=== PATIENT | male | born 1955 | race Caucasian/White ===

== ENCOUNTER 2016-12-01 20:48 | Inpatient (IN) ==
[2016-12-01] MEDS ORDERED: Ipratropium/Albuterol Neb 3 ML IH ONE (20:57)
[2016-12-01 21:32] LABS: Hematocrit 25.9 % (37.5-50.1); Hemoglobin 8.4 g/dL (12.9-16.9); Mean Corpuscular HGB Conc 32.4 g/dL (31.6-35.5); Mean Corpuscular Hemoglobin 31.7 pg (28.0-33.3); Mean Corpuscular Volume 97.7 fL (83.0-100.0); Mean Platelet Volume 10.1 fL (9.4-12.4); Red Blood Count 2.65 M/mcL (4.19-5.50); Red Cell Distribution Width 17.2 % (11.5-14.5); Segmented Neutrophils % 70.9 %
[2016-12-01 21:33] LABS: Basophils % 0.5 %; Eosinophils # 0.2 K/mcL (0.0-0.6); Immature Granulocytes % 0.4 % (0-4); Lymphocytes # 1.1 K/mcL (0.6-4.6); Lymphocytes % 13.9 %; Monocytes # 0.9 K/mcL (0.0-1.3); Monocytes % 11.3 %; Neutrophils # 5.7 K/mcL (1.6-8.9)
[2016-12-01 21:35] LABS: Platelet Count 90 K/mcL (140-400)
[2016-12-01 21:43] LABS: INR 1.2; Prothrombin Time 13.3 Seconds (9.4-12.1)
[2016-12-01 21:45] LABS: Calcium 9.3 mg/dL (8.6-10.8); Potassium 4.3 mEq/L (3.5-4.5)
--- NOTE | 2016-12-01 22:06 | Emergency Department Note ---
Disposition Clinical Impression: Congestive heart failure, Edema, Acute exacerbation of chronic obstructive airways disease, Elevated troponin Disposition: Admitted As Inpatient Condition: Fair Time of Disposition: 23:44 General Adult HPI - General Chief complaint: ED Shortness of Breath/Dyspnea Stated complaint: SOB Time Seen by Provider: 12/01/16 20:57 Source: patient Nursing Notes Reviewed: Yes Vital Signs Reviewed: Yes - History of Present Illness HPI Narrative: Patient presents to the ED with the chief complaint of shortness of breath. Patient and family report that over the last week or so. The patient has had gradually increasing shortness of breath and exertional dyspnea. Reports that he has had bilateral lower extremity swelling that is also gradually worsening. States the last few days he has been using his breathing treatments every 4-6 hours without relief. He has had a productive cough with yellow sputum, no fever or chills. Complaining of chest tightness but no chest pain. No abdominal pain. Some nausea but no vomiting. No history of DVT, PE or malignancy. Does have a history of previous CABG and is followed by cardiology here with Dr. Velasquez. States he just had some recent blood work and had a low TSH but has not been placed on any medication for that. Reports he just does not feel well at all. He does have a history of asthma but has never had to be admitted for his breathing. Pain Scale: 0 - Related Data Home Medications Medication Instructions Recorded Confirmed Albuterol Sulfate [Albuterol 2 puff IH Q4HR PRN 06/27/16 06/27/16 Inhaler] Allopurinol [Zyloprim 300 MG] 300 mg PO DAILY 06/27/16 06/27/16 Ammonium Lactate [Elsa-Hydrolac] 1 appl TP BID 06/27/16 06/27/16 Beclomethasone Diprop 80mcg [Qvar 1 puff IH BID 06/27/16 06/27/16 80 mcg] Cetirizine HCl [All Day Allergy] 10 mg PO DAILY 06/27/16 06/27/16 Cholecalciferol (D-3) [Vitamin D] 5,000 unit PO DAILY 06/27/16 06/27/16 Clobetasol Propionate [Temovate] 1 appl TP 3XW 06/27/16 06/27/16 Ergocalciferol (VITAMIN D2) 50,000 unit PO 2XW 06/27/16 06/27/16 [Vitamin D2] Fenofibrate Nanocrystallized 145 mg PO DAILY 06/27/16 06/27/16 [Tricor] Ferrous Sulfate [Iron] 325 mg PO BID 06/27/16 06/27/16 Fluticasone Propionate [Flovent 1 puff IH BID 06/27/16 06/27/16 Hfa] Furosemide [Lasix] 40 - 120 mg PO DAILY 06/27/16 06/27/16 Hydrocortisone 1% CREAM [Cortaid] 1 appl TP BID PRN 06/27/16 06/27/16 Insulin Regular U-500 [HumuLIN R 0 unit SQ AD MDD PER INSULIN PUMP 06/27/16 U-500] Isosorbide MONOnitrate (24 HR) 30 mg PO DAILY 06/27/16 06/27/16 [Imdur] Ketoconazole Shampoo [Nizoral 1 appl TP 2XW 06/27/16 06/27/16 Shampoo] Levothyroxine [Synthroid] 75 mcg PO DAILY 06/27/16 06/27/16 Lisinopril [Zestril] 5 mg PO DAILY 06/27/16 06/27/16 Mupirocin [Bactroban Oint] 1 appl TP BID PRN 06/27/16 06/27/16 Nitroglycerin [Nitrostat] 0.4 mg SL AD PRN 06/27/16 06/27/16 Simvastatin [Zocor] 40 mg PO HS 06/27/16 06/27/16 Ubidecarenone [Co Q-10] 400 mg PO DAILY 06/27/16 06/27/16 Verapamil HCl [Verapamil ER] 120 mg PO QAM 06/27/16 06/27/16 amLODIPine [Norvasc] 5 mg PO DAILY 06/27/16 06/27/16 Previous Rx's Medication Instructions Recorded Amoxicillin [Amoxil] 500 mg PO Q8HR #21 capsule 06/27/16 HYDROcodone/Acet 7.5/325 mg [[place] 1 tab PO Q4-6H PRN #40 tablet 06/27/16 7.5-325 mg] Tramadol HCl [Ultram] 50 mg PO Q4-6H PRN #30 tab 06/27/16 Allergies Allergy/AdvReac Type Severity Reaction Status Date / Time acetaminophen [From Percocet] Allergy Hives Verified 02/18/15 11:32 atorvastatin [From Lipitor] Allergy Hives Verified 02/18/15 11:32 azithromycin Allergy Hives Verified 06/27/16 12:46 [From Zithromax Z-Sharad] Cefaclor [From Ceclor] Allergy Hives Verified 02/18/15 11:32 cephalexin [From Keflex] Allergy Hives Verified 02/18/15 11:32 ciprofloxacin [From Cipro] Allergy Hives Verified 02/18/15 11:32 clarithromycin [From Biaxin] Allergy Hives Verified 02/18/15 11:30 clindamycin Allergy Hives Verified 02/18/15 11:30 metoprolol Allergy Hives Verified 02/18/15 11:32 moxifloxacin [From Avelox] Allergy Hives Verified 02/18/15 11:29 Oxycodone [From Percocet] Allergy Hives Verified 02/18/15 11:32 prednisone Allergy Hives Verified 02/18/15 11:32 Streptomycin Allergy Hives Verified 02/18/15 11:32 sulfamethoxazole Allergy Hives Verified 02/18/15 11:30 [From Bactrim] trimethoprim [From Bactrim] Allergy Hives Verified 02/18/15 11:30 All systems ED: reviewed and negative except as stated. Constitutional: Denies: fever Cardiovascular: Reports: chest pain (tightness) Respiratory: Reports: cough, dyspnea Neurological: Denies: headache Past Medical History - Past Medical History Attestation: Yes The following information was validated with the patient. Source: patient Medical history: Reports: asthma, CHF, diabetes, GERD, hypertension, renal disease, thyroid disease Surgical history: Reports: cholecystectomy, coronary bypass (CABG), sinus surgery Psychiatric history: Reports: depression - Social History Smoking Status: Never smoker Smokeless Tobacco Status: No Alcohol use: Reports: none Drug use: Reports: none Physical Exam - General General appearance: alert, in no apparent distress - Head Head exam: atraumatic, normocephalic, normal inspection - Eye Eye exam: Present: normal appearance, PERRL, EOMI - Neck Neck exam: Present: normal inspection, full ROM, trachea midline - Chest Chest inspection: Present: normal inspection, symmetric chest wall rise - Respiratory Respiratory exam: Present: other (Rales bilaterally, decreased breath sounds bilateral bases, mild respiratory distress) - Cardiovascular Cardiovascular exam: Present: regular rate, normal rhythm, normal heart sounds - Abdominal Exam Abdominal exam: Present: soft, Non-Tender, distention (chronic ) - Extremities Exam Extremities exam: Present: full ROM, pedal edema. Absent: normal inspection - Expanded Lower Extremity Exam Hip/Pelvis exam: Present: pelvis stable - Neurological Exam Neurological exam: Present: alert, oriented X3 - Psychiatric Psychiatric exam: Present: normal affect, normal mood - Skin Skin exam: Present: warm, dry, intact, normal color Course Course Narrative: 59-year-old male presenting with shortness of breath. Clinically appears to have CHF. We will workup and admit. Vital Signs Temperature 97.5 F L 12/01/16 20:49 Pulse Rate 76 12/01/16 20:49 Respiratory Rate 22 12/01/16 20:49 Blood Pressure 176/68 12/01/16 20:49 O2 Sat by Pulse Oximetry 97 12/01/16 20:49 Temperature 97.5 F L 12/01/16 20:49 Pulse Rate 73 12/01/16 23:47 Respiratory Rate 20 12/02/16 00:38 Blood Pressure 147/60 12/02/16 00:38 O2 Sat by Pulse Oximetry 95 12/01/16 23:47 Oxygen Delivery Oxygen Delivery Room Air Medical Decision Making - Medical Records Medical records reviewed: Yes I reviewed the patient's medical records. - Lab Data Lab results reviewed: Yes I reviewed the patient's lab results. Result diagrams: 12/01/16 21:22 12/01/16 21:22 Lab Results 12/01/16 12/01/16 12/01/16 Range/Units 21:22 21:22 21:22 WBC 8.1 (4.3-11.1) K/mcL RBC 2.65 L (4.19-5.50) M/mcL Hgb 8.4 L (12.9-16.9) g/dL Hct 25.9 L (37.5-50.1) % MCV 97.7 (83.0-100.0) fL MCH 31.7 (28.0-33.3) pg MCHC 32.4 (31.6-35.5) g/dL RDW 17.2 H (11.5-14.5) % Plt Count 90 L (140-400) K/mcL MPV 10.1 (9.4-12.4) fL Immature Gran % 0.4 (0-4) % Seg Neutrophils % 70.9 % Lymphocytes % 13.9 % Monocytes % 11.3 % Eosinophils % 3.0 % Basophils % 0.5 % Neutrophils # 5.7 (1.6-8.9) K/mcL Lymphocytes # 1.1 (0.6-4.6) K/mcL Monocytes # 0.9 (0.0-1.3) K/mcL Eosinophils # 0.2 (0.0-0.6) K/mcL Basophils # 0.0 (0.0-0.2) K/mcL PT (9.4-12.1) Seconds INR APTT (26.0-36.0) Seconds Sodium 138 (136-145) mEq/L Potassium 4.3 (3.5-4.5) mEq/L Chloride 102 (98-109) mEq/L Carbon Dioxide 25 (19-29) mEq/L BUN 50 H (8-26) mg/dL Creatinine 1.80 H (0.72-1.25) mg/dL Est GFR ( Amer) 47 L (> 60) Est GFR (Non-Af Amer) 38 L (> 60) BUN/Creatinine Ratio 28 H (6-26) Glucose 60 L (70-99) mg/dL Calculated Osmolality 297 (280-300) Lactic Acid (0.5-2.2) mmol/L Calcium 9.3 (8.6-10.8) mg/dL Troponin I 0.05 H* (0-0.03) ng/mL B-Natriuretic Peptide (0-100) pg/mL 12/01/16 12/01/16 12/01/16 Range/Units 21:22 21:22 21:22 WBC (4.3-11.1) K/mcL RBC (4.19-5.50) M/mcL Hgb (12.9-16.9) g/dL Hct (37.5-50.1) % MCV (83.0-100.0) fL MCH (28.0-33.3) pg MCHC (31.6-35.5) g/dL RDW (11.5-14.5) % Plt Count (140-400) K/mcL MPV (9.4-12.4) fL Immature Gran % (0-4) % Seg Neutrophils % % Lymphocytes % % Monocytes % % Eosinophils % % Basophils % % Neutrophils # (1.6-8.9) K/mcL Lymphocytes # (0.6-4.6) K/mcL Monocytes # (0.0-1.3) K/mcL Eosinophils # (0.0-0.6) K/mcL Basophils # (0.0-0.2) K/mcL PT 13.3 H (9.4-12.1) Seconds INR 1.2 APTT 45.0 H (26.0-36.0) Seconds Sodium (136-145) mEq/L Potassium (3.5-4.5) mEq/L Chloride (98-109) mEq/L Carbon Dioxide (19-29) mEq/L BUN (8-26) mg/dL Creatinine (0.72-1.25) mg/dL Est GFR ( Amer) (> 60) Est GFR (Non-Af Amer) (> 60) BUN/Creatinine Ratio (6-26) Glucose (70-99) mg/dL Calculated Osmolality (280-300) Lactic Acid 1.5 (0.5-2.2) mmol/L Calcium (8.6-10.8) mg/dL Troponin I (0-0.03) ng/mL B-Natriuretic Peptide 145 H (0-100) pg/mL - Radiology Data Radiology results reviewed: Yes I reviewed the patient's radiology results. Chest X-Ray 12/01/16 20:57 IMPRESSION: Stable borderline cardiomegaly. Suspicion of mild interstitial edema. Lungs are otherwise clear. D/ / Parker Jain MD / Parker Jain MD Interpreting Provider: Parker Jain MD - EKG Data EKG #1 EKG attestation: Yes I reviewed and interpreted this EKG. EKG results narrative: Sinus rhythm, rate 75, GA interval 176, QRS 112, QTC 438, left axis deviation, no acute ischemic changes compared to previous. On 06/26/16 S.B.A.R. - S.B.A.R. Situation: Demographics, MOA Background: Presenting Complaint, Relevant PMH, Meds, & Allergies Assessment: Vital Signs, Course and respsone to treatment, Exam Concerns, Patient/Family Expectation, Pertinant Lab Results, Outstanding Labs Recommendation: Barrier(s) to disposition, Recommendation based on pending studies, treatments, or consults S.B.A.RJeison Report Given to: Dr. Castro Guerra Repor Time: 23:44 Attestation Statement - Attestation Attestation: I, Eugene Sesay MD, personally evaluated this patient and discussed their management with the resident physician. I reviewed the resident's note and agree with the documented findings, medical decision making, and plan of care. Patient is a 61-year-old male presents to the emergency department with a complaint of increasing shortness of breath over the past week or so. He also complains of increasing edema of his legs all the way up to the groin. He has a history of CHF. The also has a history of chronic kidney disease. He just recently started on some Lasix but states the edema has progressively worsened. On examination patient is a well-developed morbidly obese male in no acute distress. He is alert and oriented 3. There is no cyanosis or diaphoresis. Chest is nontender to palpation. Breath sounds are equal bilaterally with a few faint bibasilar rales. Also a few scattered expiratory wheezes. Heart regular rate and rhythm. Abdomen soft and nontender with normal bowel sounds. There is mild bilateral pitting edema. Labs reviewed. Mildly elevated troponin noted. Chest x-ray shows cardiomegaly with some mild interstitial edema. EKG shows a normal sinus rhythm with no acute ischemic changes and no significant change from prior EKG. The hospitalist, Dr. Erazo, was consulted and accepted admission of the patient.
[2016-12-01] MEDS ORDERED: Aspirin 325 MG TABLET PO ONE (22:10)
[2016-12-01] MEDS ORDERED: Furosemide 40 MG/4 ML VIAL IVP ONE (23:36)
[2016-12-02] MEDS ORDERED: *HR* Dextrose 50 % in Water (Syg) 50 ML SYRINGE ONE (01:01)
[2016-12-02] MEDS ORDERED: *HR* Dextrose 50 % in Water (Syg) 50 ML SYRINGE IVP ONE (01:15)
[2016-12-02] MEDS ORDERED: Ondansetron 4 MG/2 ML VIAL IVP PRN (01:16)
[2016-12-02] MEDS ORDERED: Naloxone 0.4 MG/ML INJ IVP PRN (01:16)
[2016-12-02] MEDS ORDERED: D5% in Water 1,000 ML IVC PRN (01:26)
[2016-12-02] MEDS ORDERED: Dextrose Gel 15 GM PO PRN ×2 (01:26)
[2016-12-02] MEDS ORDERED: *HR* Dextrose 50 % in Water (Syg) 50 ML SYRINGE IVP PRN (01:26)
[2016-12-02 04:43] LABS: Hematocrit 24.3 % (37.5-50.1)
[2016-12-02 04:45] LABS: Basophils % 0.6 %; Eosinophils # 0.2 K/mcL (0.0-0.6); Eosinophils % 2.9 %; Hemoglobin 7.8 g/dL (12.9-16.9); Immature Granulocytes % 0.3 % (0-4); Immature Platelets 2.3 % (1.1-6.1); Lymphocytes # 1.1 K/mcL (0.6-4.6); Lymphocytes % 15.9 %; Mean Corpuscular HGB Conc 32.1 g/dL (31.6-35.5); Mean Corpuscular Hemoglobin 31.7 pg (28.0-33.3); Mean Corpuscular Volume 98.8 fL (83.0-100.0); Mean Platelet Volume 10.8 fL (9.4-12.4); Monocytes # 0.9 K/mcL (0.0-1.3); Neutrophils # 4.9 K/mcL (1.6-8.9); Red Blood Count 2.46 M/mcL (4.19-5.50); Segmented Neutrophils % 68.3 %
[2016-12-02 04:54] LABS: Platelet Count 84 K/mcL (140-400)
[2016-12-02 05:00] LABS: Calcium 9.2 mg/dL (8.6-10.8); Magnesium 2.5 mg/dL (1.6-2.6); Potassium 4.4 mEq/L (3.5-4.5)
[2016-12-02] MEDS ORDERED: Nitroglycerin 0.4 MG TAB.SUBL SL PRN (05:31)
--- NOTE | 2016-12-02 05:31 | Internal Med History&Physical ---
Date of Encounter: 12/02/16 Time of Encounter: 02:00 Assessment and Plan (1) CHF exacerbation Current visit: Yes Status: Acute Patient has history of CHF. Worsening shortness of breath and leg swelling. Consider CHF exacerbation. Clinically patient has crakles in lung bilaterally, leg swelling. BNP is not significantly elevated but patient is obese, possibly false negative. - We will place on Lasix 40 mg IV twice a day. - Strict I and O. - Fluid restriction. -Repeat echocardiogram Qualifiers: Congestive heart failure type: unspecified congestive heart failure type Qualified Code(s): I50.9 - Heart failure, unspecified (2) Anemia Current visit: Yes Status: Acute Patient has a chronic anemia. Probably due to CKD. Closely monitor H&H. Continue iron pills. Qualifiers: Anemia type: due to chronic kidney disease Chronic kidney disease stage: stage 3 (moderate) Qualified Code(s): N18.3 - Chronic kidney disease, stage 3 (moderate); D63.1 - Anemia in chronic kidney disease (3) CKD (chronic kidney disease) Current visit: Yes Status: Acute Creatinine level is at about baseline Qualifiers: Chronic kidney disease stage: stage 3 (moderate) Qualified Code(s): N18.3 - Chronic kidney disease, stage 3 (moderate) (4) Diabetes Current visit: Yes Status: Acute Will continue insulin pump managed by patient himself. Closely follow glucose level. Hypoglycemia protocol placed. 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 Patient denies chest pain. EKG is unremarkable. We will continue home medications. Qualifiers: Coronary Disease-Associated Artery/Lesion type: bypass graft [place] vs. transplanted heart: [place] heart Associated angina: without angina Qualified Code(s): I25.810 - Atherosclerosis of coronary artery bypass graft(s) without angina pectoris (7) Hypothyroidism Current visit: Yes Status: Acute Continue home medications Qualifiers: Hypothyroidism type: acquired Qualified Code(s): E03.9 - Hypothyroidism, unspecified (8) DVT prophylaxis Current visit: Yes Status: Acute Heparin subcutaneously (9) Elevated troponin Current visit: Yes Status: Acute Patient has mild elevated troponin. Denies chest pain. Probably demand ischemia. We will check 3 sets of troponin to see the trend of change. Place patient on cardiac monitoring. Internal Medicine - H&P: HPI Chief complaint: Shortness of breath and leg swelling Admitted From: Home Plans for Post Hospital Care: Home History of present illness: Mr. Sanford is a 61 year old male with history of CHF, CAD S/P CABG, hypertension , CKD, anemia, diabetes on insulin pump present to ER for shortness of breath. patient said the shortness of breath started several weeks ago. Patient has exertional shortness of breath with limited exertional capacity. Patient cannot lay flat for sleep, he has to sleep in chair for about one year. Patient has paroxysmal nocturnal dyspnea. Patient also found bilateral leg swelling. The shortness of breath and swelling is getting progressively worse. Patient came to ER for further management. Past Med Surg Social Fam HX - Past Medical History Medical history: asthma, CHF, diabetes, GERD, hypertension, renal disease, thyroid disease Psychiatric history: depression - Past Surgical History Surgical History: cholecystectomy, coronary bypass (CABG), sinus surgery - Social History Smoking Status: Never smoker Smokeless Tobacco Status: No Alcohol use: none Drug use: none - Family History Mother History Unknown: Yes Adopted: Yes Internal Medicine - H&P: Meds Albuterol Sulfate [Albuterol Inhaler] 2 puff IH Q4HR PRN 06/27/16 [History] Allopurinol [Zyloprim 300 MG] 300 mg PO DAILY 06/27/16 [History] Ammonium Lactate [Elsa-Hydrolac] 1 appl TP BID 06/27/16 [History] Amoxicillin [Amoxil] 500 mg PO Q8HR #21 capsule 06/27/16 [Rx] Beclomethasone Diprop 80mcg [Qvar 80 mcg] 1 puff IH BID 06/27/16 [History] Cetirizine HCl [All Day Allergy] 10 mg PO DAILY 06/27/16 [History] Cholecalciferol (D-3) [Vitamin D] 5,000 unit PO DAILY 06/27/16 [History] Clobetasol Propionate [Temovate] 1 appl TP 3XW 06/27/16 [History] Ergocalciferol (VITAMIN D2) [Vitamin D2] 50,000 unit PO 2XW 06/27/16 [History] Fenofibrate Nanocrystallized [Tricor] 145 mg PO DAILY 06/27/16 [History] Ferrous Sulfate [Iron] 325 mg PO BID 06/27/16 [History] Fluticasone Propionate [Flovent Hfa] 1 puff IH BID 06/27/16 [History] Furosemide [Lasix] 40 - 120 mg PO DAILY 06/27/16 [History] HYDROcodone/Acet 7.5/325 mg [[place] 7.5-325 mg] 1 tab PO Q4-6H PRN #40 tablet [Rx] Hydrocortisone 1% CREAM [Cortaid] 1 appl TP BID PRN 06/27/16 [History] Insulin Regular U-500 [HumuLIN R U-500] 0 unit SQ AD MDD PER INSULIN PUMP 06/27 [History] Isosorbide MONOnitrate (24 HR) [Imdur] 30 mg PO DAILY 06/27/16 [History] Ketoconazole Shampoo [Nizoral Shampoo] 1 appl TP 2XW 06/27/16 [History] Levothyroxine [Synthroid] 75 mcg PO DAILY 06/27/16 [History] Lisinopril [Zestril] 5 mg PO DAILY 06/27/16 [History] Mupirocin [Bactroban Oint] 1 appl TP BID PRN 06/27/16 [History] Nitroglycerin [Nitrostat] 0.4 mg SL AD PRN 06/27/16 [History] Simvastatin [Zocor] 40 mg PO HS 06/27/16 [History] Tramadol HCl [Ultram] 50 mg PO Q4-6H PRN #30 tab 06/27/16 [Rx] Ubidecarenone [Co Q-10] 400 mg PO DAILY 06/27/16 [History] Verapamil HCl [Verapamil ER] 120 mg PO QAM 06/27/16 [History] amLODIPine [Norvasc] 5 mg PO DAILY 06/27/16 [History] Ammonium Lactate [Lac-Hydrin Five] 113 gm TP 12/02/16 [History] Aspirin [Lo-Dose Aspirin EC] 81 mg PO 12/02/16 [History] Cholestyramine 4 gm PO BIDAC 12/02/16 [History] Doxycycline Monohydrate [Mondoxyne Nl] 100 mg PO 12/02/16 [History] 3 Allergy/AdvReac Type Severity Reaction Status Date / Time acetaminophen [From Percocet] Allergy Hives Verified 02/18/15 11:32 atorvastatin [From Lipitor] Allergy Hives Verified 02/18/15 11:32 azithromycin Allergy Hives Verified 06/27/16 12:46 [From Zithromax Z-Sharad] Cefaclor [From Ceclor] Allergy Hives Verified 02/18/15 11:32 cephalexin [From Keflex] Allergy Hives Verified 02/18/15 11:32 ciprofloxacin [From Cipro] Allergy Hives Verified 02/18/15 11:32 clarithromycin [From Biaxin] Allergy Hives Verified 02/18/15 11:30 clindamycin Allergy Hives Verified 02/18/15 11:30 metoprolol Allergy Hives Verified 02/18/15 11:32 moxifloxacin [From Avelox] Allergy Hives Verified 02/18/15 11:29 Oxycodone [From Percocet] Allergy Hives Verified 02/18/15 11:32 prednisone Allergy Hives Verified 02/18/15 11:32 Streptomycin Allergy Hives Verified 02/18/15 11:32 sulfamethoxazole Allergy Hives Verified 02/18/15 11:30 [From Bactrim] trimethoprim [From Bactrim] Allergy Hives Verified 02/18/15 11:30 All Systems PM: A 10-system review of systems was performed and is negative for pertinent findings except as documented above in the HPI. - Constitutional Vitals: Temp Pulse Resp BP Pulse Ox 97.6 F 71 20 131/66 94 12/02/16 01:26 12/02/16 01:26 12/02/16 01:26 12/02/16 01:26 12/02/16 01:26 General appearance: Present: mild distress, A&O X 3, answers questions appropriately - Head Head exam: Present: atraumatic, normocephalic - Eye Eye exam: Present: PERRL, conjuntiva pink, sclera anicteric Pupils: Present: PERRL - Neck Neck exam general surgery: Present: supple, trachea midline. Absent: lymphadenopathy - Respiratory Respiratory exam: Present: CTAB, rales (Fine crackles bilaterally). Absent: accessory muscle use, rhonchi, wheezes - Cardiovascular Cardiovascular exam: Present: RRR, +S1, +S2. Absent: diastolic murmur, gallop, rubs, systolic murmur - GI/Abdominal GI/Abdominal exam: Present: normal bowel sounds, soft, no peritoneal signs. Absent: distended, tenderness - Extremities Exam Extremities exam: Present: pedal edema (Bilaterally), warm, radial pulses palpable and symmetrical. Absent: calf tenderness, cyanotic - Neurological Exam Neurological exam: Present: CN II-XII intact, oriented X3, no focal deficits. Absent: pronater drift, facial droop, speech deficit - Skin Skin exam: Present: dry, intact Internal Med - H&P Results - Labs CBC & Chem 7: 12/02/16 04:09 12/02/16 04:09 Labs: Short CBC 12/02/16 Range/Units 04:09 WBC 7.2 (4.3-11.1) K/mcL Hgb 7.8 L (12.9-16.9) g/dL Hct 24.3 L (37.5-50.1) % Plt Count 84 L (140-400) K/mcL Neutrophils # 4.9 (1.6-8.9) K/mcL BMP 12/02/16 04:09 Sodium 140 Potassium 4.4 Chloride 103 Carbon Dioxide 26 BUN 49 H Creatinine 1.68 H Glucose 51 L Calcium 9.2 Cardiac Enzymes 12/02/16 Range/Units 04:09 Troponin I 0.07 H* (0-0.03) ng/mL - EKG Data -: EKG Interpreted by Myself EKG shows normal: sinus rhythm Rate: normal
[2016-12-02] MEDS: *HR* Heparin 5,000 UNIT/ML VIAL SQ SCH ×2 (05:41→17:18)
--- NOTE | 2016-12-02 08:10 | Event Note ---
<Weston Hall - Last Filed: 12/02/16 12:02> Date of Encounter: 12/02/16 Time of Encounter: 10:00 Patient seen and examined by me. 61M c PMHx of CHF, DM on insulin pump, CKD stage3, chronic anemia, htn, CAD s/p CABG, hypothyridsim. Patient reports worsening SOB over the last few weeks. Patient reports compliance with diet. Patient denies chest pain, but reports SOB, JOSHUA, BLE swelling. On exam patient has rales and crackles in lungs, normal heart sounds, BLE edema. Agree with plan of rechecking echo and diuresing with IV lasix. Will continue to monitor. <Rohith Faust - Last Filed: 12/02/16 18:02> Date of Encounter: 12/02/16 Mr. Sanford was admitted earlier today for exacerbation of CHF. He is on IV Lasix. Exam Alert. Comfortable Edema present. Continue plan as ordered.
[2016-12-02] MEDS ORDERED: NON-FORMULARY MEDICATION 1 EACH EACH (Fluticasone Propionate [Flovent Hfa] 1 PUFF) IH SCH (09:00)
[2016-12-02] MEDS: Fenofibrate 54 MG TABLET PO SCH (09:32)
[2016-12-02] MEDS: Isosorbide MONOnitrate (24 HR) 30 MG TAB.ER.24H PO SCH (09:32)
[2016-12-02] MEDS: Verapamil ER (24 HR) 120 MG TABLET.ER PO SCH (09:44)
[2016-12-02] MEDS: Furosemide 40 MG/4 ML VIAL IVP SCH ×2 (09:48→21:50)
[2016-12-02] MEDS: Beclomethasone 80mcg MDI IH SCH ×2 (10:52→22:12)
[2016-12-03] MEDS: Insulin LISPRO 300 UNITS/3 ML VIAL SQ SCH ×3 (06:07→17:34)
[2016-12-03] MEDS: *HR* Heparin 5,000 UNIT/ML VIAL SQ SCH ×2 (06:08→16:22)
[2016-12-03 07:27] LABS: Calcium 9.3 mg/dL (8.6-10.8); Potassium 5.2 mEq/L (3.5-4.5)
[2016-12-03] MEDS: Beclomethasone 80mcg MDI IH SCH ×2 (07:58→21:12)
[2016-12-03 08:07] LABS: Hematocrit 24.8 % (37.5-50.1); Immature Platelets 2.4 % (1.1-6.1); Mean Corpuscular HGB Conc 32.3 g/dL (31.6-35.5); Mean Corpuscular Hemoglobin 32.3 pg (28.0-33.3); Mean Platelet Volume 11.1 fL (9.4-12.4); Red Blood Count 2.48 M/mcL (4.19-5.50)
[2016-12-03] MEDS: Isosorbide MONOnitrate (24 HR) 30 MG TAB.ER.24H PO SCH (08:13)
[2016-12-03] MEDS: Verapamil ER (24 HR) 120 MG TABLET.ER PO SCH (08:13)
[2016-12-03] MEDS: Fenofibrate 54 MG TABLET PO SCH (08:14)
[2016-12-03] MEDS: Furosemide 40 MG/4 ML VIAL IVP SCH ×2 (08:15→21:35)
--- NOTE | 2016-12-03 09:21 | Internal Med Progress Note ---
<Weston Hall - Last Filed: 12/03/16 11:16> Date of Encounter: 12/03/16 Time of Encounter: 09:19 - Assessment and plan (1) CHF exacerbation Current Visit: Yes Status: Acute Assessment and plan: acute on chronic diastolic CHF based on old echos patient with interstial edema on CXR BLE swelling continue IV lasix. continue fluid restriction Strict I&Os repeat echo was technically difficult no clear reduction in EF. continue to monitor Qualifiers: Congestive heart failure type: diastolic Qualified Code(s): I50.33 - Acute on chronic diastolic (congestive) heart failure (2) Elevated troponin Current Visit: Yes Status: Acute Assessment and plan: Likely secondary to demand ischemia 2/2 CHF exacerbation ECHO technically limited. No clear wall motion abnormalities or decrease in EF no chest pain. Peaked at 0.07 on second trop. 3rd trop 0.06. (3) Anemia Current Visit: Yes Status: Acute Assessment and plan: Chronic, Stable. 2/2 to CKD continue to monitor Qualifiers: Anemia type: due to chronic kidney disease Chronic kidney disease stage: stage 3 (moderate) Qualified Code(s): N18.3 - Chronic kidney disease, stage 3 (moderate); D63.1 - Anemia in chronic kidney disease (4) CKD (chronic kidney disease) Current Visit: Yes Status: Acute Assessment and plan: Chronic. Cr. a little worse than baseline 2.01 today baseline ~1.5 likely 2/2 to increased lasix. continue to monitor. K up to 5.2 today will recheck this afternoon. Qualifiers: Chronic kidney disease stage: stage 3 (moderate) Qualified Code(s): N18.3 - Chronic kidney disease, stage 3 (moderate) (5) Diabetes Current Visit: Yes Status: Acute Assessment and plan: Chronic. Patient has insulin pump. Was having low sugars managing his sugars with his pump in hospital. Had patient turn off pump. Will manage with SSI. continue to monitor. Qualifiers: Diabetes mellitus type: type 2 Diabetes mellitus complication status: with kidney complications Diabetes mellitus complication detail: with chronic kidney disease Diabetes mellitus terminal carman insulin use: without detention use Chronic kidney disease stage: stage 3 (moderate) Qualified Code(s): E11.22 - Type 2 diabetes mellitus with diabetic chronic kidney disease; N18.3 - Chronic kidney disease, stage 3 (moderate) (6) Hypertension Current Visit: Yes Status: Acute Assessment and plan: Chronic, stable. Continue home meds. Qualifiers: Hypertension type: essential hypertension Qualified Code(s): I10 - Essential (primary) hypertension (7) CAD (coronary artery disease) Current Visit: Yes Status: Acute Assessment and plan: Chronic, Stable. continue home meds Qualifiers: Coronary Disease-Associated Artery/Lesion type: bypass graft [place] vs. transplanted heart: [place] de[place] heart Associated angina: without angina Qualified Code(s): I25.810 - Atherosclerosis of coronary artery bypass graft(s) without angina pectoris (8) Hypothyroidism Current Visit: Yes Status: Acute Assessment and plan: Chronic, Stable. Continue home meds. Qualifiers: Hypothyroidism type: acquired Qualified Code(s): E03.9 - Hypothyroidism, unspecified - Subjective Interval history: Patient reports breathing a little better, but still has fluid on his legs. Some venous stasis ulcers on legs. - Constitutional Vitals: Temp Pulse Resp BP Pulse Ox 97.9 F 61 16 114/61 97 12/03/16 07:30 12/03/16 07:30 12/03/16 07:58 12/03/16 07:30 12/03/16 07:58 General appearance: Present: mild distress, A&O X 3, answers questions appropriately - Head Head exam: Present: atraumatic, normocephalic - Eye Eye exam: Present: PERRL, conjuntiva pink, sclera anicteric Pupils: Present: PERRL - Neck Neck exam general surgery: Present: supple, trachea midline. Absent: lymphadenopathy - Respiratory Respiratory exam: Present: decreased breath sounds, wheezes (end expiratory, diffusely). Absent: accessory muscle use, rales, rhonchi - Cardiovascular Cardiovascular exam: Present: RRR, +S1, +S2. Absent: diastolic murmur, gallop, rubs, systolic murmur - GI/Abdominal GI/Abdominal exam: Present: normal bowel sounds, soft, no peritoneal signs. Absent: distended, tenderness - Extremities Exam Extremities exam: Present: pedal edema, warm. Absent: calf tenderness, cyanotic Additional comments: wearing felecia stockings. Venous stasis changes b/l legs - Neurological Exam Neurological exam: Present: alert, oriented X3. Absent: facial droop, speech deficit - Skin Skin exam: Present: dry, intact, warm Internal Medicine: Result - Labs CBC & Chem 7: 12/03/16 06:40 12/03/16 06:40 Labs: Short CBC 12/03/16 Range/Units 06:40 WBC 6.8 (4.3-11.1) K/mcL Hgb 8.0 L (12.9-16.9) g/dL Hct 24.8 L (37.5-50.1) % Plt Count 86 L (140-400) K/mcL BMP 12/03/16 06:40 Sodium 137 Potassium 5.2 H Chloride 103 Carbon Dioxide 24 BUN 52 H Creatinine 2.01 H Glucose 55 L Calcium 9.3 Cardiac Enzymes 12/02/16 Range/Units 09:45 Troponin I 0.06 H* (0-0.03) ng/mL - ABG Interpretation ABG results: PT/INR, D-dimer PT 13.3 Seconds (9.4-12.1) H 12/01/16 21:22 - VTE Documentation of Mechanical Device: Graduated compression elastic hosiery Consult Discharge Plan - Plan Referrals: Davion Ruelas DO [Primary Care Provider] - (web request 12/03/2016) <Rohith Faust - Last Filed: 12/03/16 15:41> Date of Encounter: 12/03/16 - Assessment and plan (1) CHF exacerbation Current Visit: Yes Status: Acute Qualifiers: Congestive heart failure type: diastolic Qualified Code(s): I50.33 - Acute on chronic diastolic (congestive) heart failure (2) CKD (chronic kidney disease) Current Visit: Yes Status: Acute Qualifiers: Chronic kidney disease stage: stage 3 (moderate) Qualified Code(s): N18.3 - Chronic kidney disease, stage 3 (moderate) (3) Hypertension Current Visit: Yes Status: Acute Qualifiers: Hypertension type: essential hypertension Qualified Code(s): I10 - Essential (primary) hypertension (4) CAD (coronary artery disease) Current Visit: Yes Status: Acute Qualifiers: Coronary Disease-Associated Artery/Lesion type: bypass graft [place] vs. transplanted heart: [place] de[place] heart Associated angina: without angina Qualified Code(s): I25.810 - Atherosclerosis of coronary artery bypass graft(s) without angina pectoris (5) Anemia Current Visit: Yes Status: Acute Qualifiers: Anemia type: due to chronic kidney disease Chronic kidney disease stage: stage 3 (moderate) Qualified Code(s): N18.3 - Chronic kidney disease, stage 3 (moderate); D63.1 - Anemia in chronic kidney disease (6) Diabetes Current Visit: Yes Status: Acute Qualifiers: Diabetes mellitus type: type 2 Diabetes mellitus complication status: with kidney complications Diabetes mellitus complication detail: with chronic kidney disease Diabetes mellitus terminal carman insulin use: without detention use Chronic kidney disease stage: stage 3 (moderate) Qualified Code(s): E11.22 - Type 2 diabetes mellitus with diabetic chronic kidney disease; N18.3 - Chronic kidney disease, stage 3 (moderate) (7) Hypoglycemia due to insulin Current Visit: Yes Status: Acute (8) Stasis dermatitis of left lower extremity with venous ulcer due to chronic peripheral venous hypertension Current Visit: Yes Status: Chronic (9) Venous stasis dermatitis of both lower extremities Current Visit: Yes Status: Chronic (10) Morbid obesity with BMI of 45.0-49.9, adult Current Visit: Yes Status: Acute - Constitutional Vitals: Temp Pulse Resp BP Pulse Ox 97.9 F 73 18 138/82 97 12/03/16 10:43 12/03/16 10:43 12/03/16 10:43 12/03/16 10:43 12/03/16 10:43 Internal Medicine: Result - Labs CBC & Chem 7: 12/03/16 06:40 12/03/16 06:40 Labs: Short CBC 12/03/16 Range/Units 06:40 WBC 6.8 (4.3-11.1) K/mcL Hgb 8.0 L (12.9-16.9) g/dL Hct 24.8 L (37.5-50.1) % Plt Count 86 L (140-400) K/mcL BMP 12/03/16 06:40 Sodium 137 Potassium 5.2 H Chloride 103 Carbon Dioxide 24 BUN 52 H Creatinine 2.01 H Glucose 55 L Calcium 9.3 - ABG Interpretation ABG results: PT/INR, D-dimer PT 13.3 Seconds (9.4-12.1) H 12/01/16 21:22 - Attending Attestation I examined this patient and my medical decision-making was reviewed with the Resident Physician on 12/03/16. I agree with the documented findings, disposition and treatment plan as described except to the extent set forth below. Mr. Sanford is currently admitted for acute exac CHF. He remains moderate to high risk due to potential for worsening respiratory status. Mr Sanford is feeling OK now. His blood sugar had dropped overnight and his pump is now off. His creatinine is somewhat higher today. No fever or chills. Still feels quite edematous. Less dyspnea. Exam Alert. Comfortable Edema present diffusely Heart reg Lungs diminished with some rales. Abd soft I/P 1. CHF exacerbation 2. CKD 3 Further diagnoses and plan as above.
[2016-12-03 15:33] LABS: Calcium 9.4 mg/dL (8.6-10.8); Potassium 5.3 mEq/L (3.5-4.5)
[2016-12-04] MEDS: Insulin LISPRO 300 UNITS/3 ML VIAL SQ SCH ×4 (00:02→16:31)
[2016-12-04] MEDS: *HR* Heparin 5,000 UNIT/ML VIAL SQ SCH (06:22)
[2016-12-04 07:21] LABS: Calcium 9.1 mg/dL (8.6-10.8); Potassium 5.5 mEq/L (3.5-4.5)
[2016-12-04 07:28] LABS: Hemoglobin 7.7 g/dL (12.9-16.9); Mean Platelet Volume 10.9 fL (9.4-12.4)
[2016-12-04 07:30] LABS: Hematocrit 23.9 % (37.5-50.1); Immature Platelets 2.6 % (1.1-6.1); Mean Corpuscular HGB Conc 32.2 g/dL (31.6-35.5); Mean Corpuscular Hemoglobin 31.7 pg (28.0-33.3); Mean Corpuscular Volume 98.4 fL (83.0-100.0); Red Blood Count 2.43 M/mcL (4.19-5.50); Red Cell Distribution Width 16.6 % (11.5-14.5)
[2016-12-04] MEDS: Beclomethasone 80mcg MDI IH SCH ×2 (07:52→19:48)
--- NOTE | 2016-12-04 08:17 | Electrocardiograph Report ---
[address] [place] [address] Test Date: 2016-12-01 Pat Name: Chris Sanford Department: 105 Room: 2A63 Gender: M Chief Technician X Ray: : 1955 Requested By: Eugene Sesay Order Number: [id number] Reading MD: Shayla Russo Measurements Intervals [place] Rate: 75 P: -57 PA: 176 QRS: -33 QRSD: 112 T: 160 QT: 408 QTc: 438 Interpretive Statements SINUS RHYTHM MARKED LEFT AXIS DEVIATION [QRS AXIS < -30] PATTERN CONSISTENT WITH PULMONARY DISEASE MODERATE INTRAVENTRICULAR CONDUCTION DELAY [110+ ms QRS DURATION] ST DEVIATION AND MODERATE T-WAVE ABNORMALITY, CONSIDER LATERAL ISCHEMIA Electronically Signed On 12-03-2016 11:24:33 EDT by Shayla Russo
[2016-12-04] MEDS: Isosorbide MONOnitrate (24 HR) 30 MG TAB.ER.24H PO SCH (09:01)
[2016-12-04] MEDS: Furosemide 40 MG/4 ML VIAL IVP SCH (09:01)
[2016-12-04] MEDS: Fenofibrate 54 MG TABLET PO SCH (09:01)
--- NOTE | 2016-12-04 09:05 | Cardiology Consult Note ---
Date of Encounter: 12/04/16 Time of Encounter: 09:00 Assessment and Plan (1) Congestive heart failure Current Visit: Yes Status: Acute Per Cardiology: Moderate diastolic dysfxn on echo 05/2015 with EF 60%. Most recent echo grossly normal EF this stay. BNP only 145. CXR stable-- mild interstitial edema. On lasix 40mg PO BID at home, recently received Metolazone as outpatient. Net I&O + 270. Wt was 325 on admit, now 316-- baseline weight from most recent clinic visits 315lbs. Patient with known hx of chronic venous stasis. On Lasix 40mg IV BID. Clinically improved. Suspect JOSHUA and edema multifactorial. Nephrology C/S pending, will switch back to home PO dose for now. Continue with strict I&O, daily weights, add 2L fluid restriction. Discussed and reviewed with Dr. Ward, cardiology will sign off, reconsult as needed, follow-up scheduled. Qualifiers: Congestive heart failure type: diastolic Congestive heart failure chronicity: acute on chronic Qualified Code(s): I50.33 - Acute on chronic diastolic (congestive) heart failure (2) CKD (chronic kidney disease) Current Visit: Yes Status: Chronic Per Cardiology: Known hx of CKD stage 3b, slightly worsened. Nephrology c/s pending. ACEI on hold. Will decrease lasix back to home dose. Qualifiers: Chronic kidney disease stage: stage 3 (moderate) Qualified Code(s): N18.3 - Chronic kidney disease, stage 3 (moderate) (3) Wenckebach second degree AV block Current Visit: Yes Status: Acute Per Cardiology: ECG and strips reviewed-- 2nd degree type 1 AVB noted. Incidental finding. Currently SR. Now off Verapamil 120mg PO daily. Agree to keep off. Adjust other antihypertensives as needed-- adding back norvasc (home med since ACEI and Verapamil now off). Currently SBP 120's - 130's. Monitor tele. (4) Anemia Current Visit: Yes Status: Acute Per Cardiology: Hx of iron def anemia. H&H now down to 7.7/23.9-- discussed with primary service , guaiac stools. Monitor his epistaxis-- hx of cauterization. PLT in the 80's. Denies any acute blood loss other than nosebleeds. Guaiac stools. Suspect anemia contributing to JOSHUA and fatigue, rec blood transfusion. Will DC SQ Heparin. Use bilateral SCDs for DVT prophylaxis. Qualifiers: Anemia type: due to chronic kidney disease Chronic kidney disease stage: stage 3 (moderate) Qualified Code(s): N18.3 - Chronic kidney disease, stage 3 (moderate); D63.1 - Anemia in chronic kidney disease (5) Elevated troponin Current Visit: Yes Status: Acute Per Cardiology: Troponins flat and adynamic with peak of 0.07 in setting of acute on chronic kidney disease, acute on chronic moderate CHF, and anemia. Suspect demand ischemia. No cardiac rehabilitation consult warranted. We discussed potential ischemic eval, but clinically stable (EF grossly normal and muliple comorbids). Will f/u as outpatient. Patient agreeable. (6) CAD (coronary artery disease) Current Visit: Yes Status: Chronic Per Cardiology: History of CAD with CABG 3 [facility] in 2001. Last heart catheterization around 2006. Negative stress test May 2015. Chest pain-free. Not requiring nitroglycerin pills. Qualifiers: Coronary Disease-Associated Artery/Lesion type: bypass graft [place] vs. transplanted heart: hoh heart Associated angina: without angina Qualified Code(s): I25.810 - Atherosclerosis of coronary artery bypass graft(s) without angina pectoris Discussion w patient/family: The assessment and plan as outlined above was discussed with the patient who expressed understanding and agreement. All questions were answered. Thank you for involving us in the care of your patient. Please call with any questions. History of Present Illness Consult date: 12/04/16 Consult reason: Heart Block, SOB Chief complaint: JOSHUA History of present illness: Mr. Sanford is a 61 year old male with a relevant past medical history of CAD with CABG 3 at [facility] in 2001, iron deficiency anemia requiring blood transfusion a few years ago, hypothyroidism, CKD, CHF, GERD, hypertension, diabetes mellitus type 2, PREMA, and chronic venous stasis. Last [facility] 2006-- no stenting per patient. Negative stress test 05/2015. No known hx of heart block or afib. Hx of blood transfusion in the past. Cardiology C/S for SOB and concerns for 2nd AVB type 1. Does report increased fatigue from baseline. Patient reports increased dyspnea on exertion over the past 2 weeks. Reports occasional short of breath at rest. Reports symptoms improved during hospital stay thus far. Does not use O2 at home. Reports remote smoking and quit age 21. He denies any chest pain-- has not used NTG pills. He denies any palpitations. Reports one episode last week was sitting at table and "slumped over". He denies complete loss of consciousness and denies any acute trauma. Denies any precipitating events or symptoms. He denied any loss of bowel or bladder. He reports occasional intermittent dizziness with position changes and denies any previous syncopal events. He reports systolic blood pressures at home have been running in the 140s. He reports recently his baseline weights running 307-319 pounds. He does report he utilizes [place] hose at home and doesn't closely monitor fluids and sodium as previously instructed. Has hx of venous stasis. He denies any significant bleeding and blood loss. Does report history of nosebleeds requiring cauterization. Patient now with nosebleed during hospital stay. Past Med Surg Social Fam HX - Past Medical History Attestation: Yes The following information was validated with the patient. Source: patient, old records reviewed Medical history: asthma, CHF, coronary artery disease, diabetes, GERD, hypertension, renal disease, thyroid disease Psychiatric history: depression - Past Surgical History Surgical History: cholecystectomy, coronary bypass (CABG), sinus surgery - Social History Smoking Status: Former smoker Packs per day: Quit age 21 Smokeless Tobacco Status: No Alcohol use: none Drug use: none - Family History Mother History Unknown: Yes Adopted: Yes Medications and Allergies Albuterol Sulfate [Albuterol Inhaler] 2 puff IH Q4HR PRN 06/27/16 [History] Allopurinol [Zyloprim 300 MG] 300 mg PO DAILY 06/27/16 [History] Ammonium Lactate [Elsa-Hydrolac] 1 appl TP BID 06/27/16 [History] Beclomethasone Diprop 80mcg [Qvar 80 mcg] 1 puff IH BID 06/27/16 [History] Cetirizine HCl [All Day Allergy] 10 mg PO DAILY 06/27/16 [History] Cholecalciferol (D-3) [Vitamin D] 5,000 unit PO DAILY 06/27/16 [History] Clobetasol Propionate [Temovate] 1 appl TP 3XW 06/27/16 [History] Fenofibrate Nanocrystallized [Tricor] 145 mg PO DAILY 06/27/16 [History] Ferrous Sulfate [Iron] 325 mg PO BID 06/27/16 [History] Fluticasone Propionate [Flovent Hfa] 1 puff IH BID 06/27/16 [History] Furosemide [Lasix] 40 mg PO BID 06/27/16 [History] Hydrocortisone 1% CREAM [Cortaid] 1 appl TP BID PRN 06/27/16 [History] Insulin Regular U-500 [HumuLIN R U-500] 0 unit SQ AD MDD PER INSULIN PUMP 06/27 [History] Isosorbide MONOnitrate (24 HR) [Imdur] 30 mg PO DAILY 06/27/16 [History] Ketoconazole Shampoo [Nizoral Shampoo] 1 appl TP 2XW 06/27/16 [History] Levothyroxine [Synthroid] 75 mcg PO DAILY 06/27/16 [History] Lisinopril [Zestril] 5 mg PO DAILY 06/27/16 [History] Nitroglycerin [Nitrostat] 0.4 mg SL AD PRN 06/27/16 [History] Simvastatin [Zocor] 40 mg PO HS 06/27/16 [History] Tramadol HCl [Ultram] 50 mg PO Q4-6H PRN #30 tab 06/27/16 [Rx] Ubidecarenone [Co Q-10] 400 mg PO DAILY 06/27/16 [History] Verapamil HCl [Verapamil ER] 120 mg PO QAM 06/27/16 [History] amLODIPine [Norvasc] 5 mg PO DAILY 06/27/16 [History] Aspirin [Lo-Dose Aspirin EC] 81 mg PO DAILY 12/02/16 [History] 3 Allergy/AdvReac Type Severity Reaction Status Date / Time acetaminophen [From Percocet] Allergy Hives Verified 02/18/15 11:32 atorvastatin [From Lipitor] Allergy Hives Verified 02/18/15 11:32 azithromycin Allergy Hives Verified 06/27/16 12:46 [From Zithromax Z-Sharad] Cefaclor [From Ceclor] Allergy Hives Verified 02/18/15 11:32 cephalexin [From Keflex] Allergy Hives Verified 02/18/15 11:32 ciprofloxacin [From Cipro] Allergy Hives Verified 02/18/15 11:32 clarithromycin [From Biaxin] Allergy Hives Verified 02/18/15 11:30 clindamycin Allergy Hives Verified 02/18/15 11:30 metoprolol Allergy Hives Verified 02/18/15 11:32 moxifloxacin [From Avelox] Allergy Hives Verified 02/18/15 11:29 Oxycodone [From Percocet] Allergy Hives Verified 02/18/15 11:32 prednisone Allergy Hives Verified 02/18/15 11:32 Streptomycin Allergy Hives Verified 02/18/15 11:32 sulfamethoxazole Allergy Hives Verified 02/18/15 11:30 [From Bactrim] trimethoprim [From Bactrim] Allergy Hives Verified 02/18/15 11:30 All Systems Review: A 10-system review of systems was performed and is negative for pertinent findings except as documented above in the HPI. - Constitutional Constitutional: chills (chronic), fatigue - EENT Nose, mouth and throat: epistaxis - Cardiovascular Cardiovascular: as per HPI, dyspnea at rest, dyspnea on exertion, leg edema, lightheadedness Physical Examination Vital Signs, Last 4 Hours Temp Pulse Resp BP Pulse Ox 12/04/16 07:53 18 93 12/04/16 07:43 97.9 F 69 18 123/62 93 12/04/16 05:04 98.4 F 76 18 113/53 91 General: Conversant, No Apparent Distress HEENT: Atraumatic, Normocephaly, Mucus Membranes Moist Neck: No JVD, Normal carotid pulses Cardiac: Reg Rate and Rhythm, Normal S1 and S2, No Murmur, Other (faint heart sounds) Lungs: Normal Breath Sounds, No Wheeze, Rales, Rhonchi, Other (slightly dimished to R base) Neuro: Alert and responsive, No focal deficits noted Abdomen: Soft, Non-Tender, Other (obese) Skin: No rashes noted on visualized skin Musculoskeletal: No Chest Wall Tenderness Extremities: No Clubbing, No Cyanosis, Normal Pulses, Other (+2-3 pitting edema , builateral knee high [place] hose on) Results 12/04/16 06:59 12/04/16 06:59 Lab Results Laboratory Tests 03/09/16 06/26/16 11/19/16 14:26 10:30 13:32 Hgb 10.8 L 8.8 L 8.2 L Hct 27.7 L 26.4 L Plt Count 104 L 97 L INR Creatinine Est GFR (Non-Af Amer) Magnesium Troponin I B-Natriuretic Peptide 12/01/16 12/01/16 12/01/16 21:22 21:22 21:22 Hgb Hct Plt Count INR Creatinine 1.80 H Est GFR (Non-Af Amer) 38 L Magnesium Troponin I 0.05 H* B-Natriuretic Peptide 145 H 12/01/16 12/02/16 12/02/16 21:22 04:09 04:09 Hgb 7.8 L Hct 24.3 L Plt Count INR 1.2 Creatinine Est GFR (Non-Af Amer) Magnesium Troponin I 0.07 H* B-Natriuretic Peptide 12/02/16 12/02/16 12/03/16 04:09 09:45 06:40 Hgb 8.0 L Hct 24.8 L Plt Count 86 L INR Creatinine Est GFR (Non-Af Amer) Magnesium 2.5 Troponin I 0.06 H* B-Natriuretic Peptide 12/03/16 12/04/16 14:26 06:59 Hgb Hct Plt Count INR Creatinine 2.21 H 2.08 H Est GFR (Non-Af Amer) 30 L 33 L Magnesium Troponin I B-Natriuretic Peptide ITS Impressions Chest X-Ray 12/01/16 20:57 IMPRESSION: Stable borderline cardiomegaly. Suspicion of mild interstitial edema. Lungs are otherwise clear. D/ / Parker Jain MD / Parkre Jain MD Interpreting Provider: Parker Jain MD Active Medications Beclomethasone Dipropionate (Qvar 80 Mcg) 1 puff IH BIDRESP SHERIDAN PRN Reason: Protocol Stop: 06/03/17 10:01 Last Admin: 12/04/16 07:52 Dose: 1 puff Dextrose/Water (Dextrose 50% (Syg)) 25 ml IVP AD PRN PRN Reason: Hypoglycemia Stop: 06/03/17 01:27 Ergocalciferol (Drisdol (50,000 Unit)) 50,000 unit PO QWEEK SHERIDAN Stop: 06/04/17 09:01 Last Admin: 12/03/16 08:13 Dose: 50,000 unit Fenofibrate (Tricor) 162 mg PO DAILY [facility] Stop: 06/03/17 09:01 Last Admin: 12/03/16 08:14 Dose: 162 mg Ferrous Sulfate (Ferrous Sulfate) 325 mg PO BID [facility] Stop: 06/03/17 09:01 Last Admin: 12/03/16 21:36 Dose: 325 mg Furosemide (Lasix) 40 mg IVP BID SHERIDAN Stop: 06/03/17 09:01 Last Admin: 12/03/16 21:35 Dose: 40 mg Glucagon (Glucagen) 1 mg IM ONCE PRN PRN Reason: Hypoglycemia Stop: 06/03/17 01:27 Glucose (Gluctose) 15 gm PO ONCE PRN PRN Reason: Hypoglycemia Stop: 06/03/17 01:27 Glucose (Gluctose) 30 gm PO ONCE PRN PRN Reason: Hypoglycemia Stop: 06/03/17 01:27 Heparin Sodium (Porcine) (Heparin) 5,000 unit SQ Q12HR [facility] Stop: 06/03/17 06:01 Last Admin: 12/04/16 06:22 Dose: 5,000 unit Hydralazine HCl (Hydralazine) 10 mg IVP Q6HR PRN PRN Reason: Hypertension Stop: 06/03/17 01:25 Dextrose (Dextrose 5%) 1,000 mls @ 100 mls/hr IVC .Q10H PRN PRN Reason: HYPOGLYCEMIA Stop: 06/03/17 01:27 Insulin Human Lispro (Humalog) 0 units SQ Q6HR SHERIDAN PRN Reason: Protocol Stop: 06/04/17 06:01 Last Admin: 12/04/16 06:00 Dose: Not Given Isosorbide Mononitrate (Imdur) 30 mg PO DAILY [facility] Stop: 06/03/17 09:01 Last Admin: 12/03/16 08:13 Dose: 30 mg Levothyroxine Sodium (Synthroid) 75 mcg PO DAILY [facility] Stop: 06/03/17 09:01 Last Admin: 12/03/16 08:14 Dose: 75 mcg Lisinopril (Zestril) 5 mg PO DAILY SHERIDAN PRN Reason: Protocol Stop: 06/03/17 09:01 Last Admin: 12/03/16 08:15 Dose: 5 mg Naloxone HCl (Narcan) 0.4 mg IVP Q2MIN PRN PRN Reason: Opioid Reversal Stop: 06/03/17 01:17 Nitroglycerin (Nitroglycerin) 0.4 mg SL AD PRN PRN Reason: Chest Pain Stop: 06/03/17 05:32 Ondansetron HCl (Zofran) 4 mg IVP Q8HR PRN PRN Reason: Nausea And Vomiting Stop: 06/03/17 01:17 Simvastatin (Zocor) 40 mg PO HS SHERIDAN PRN Reason: Protocol Stop: 06/03/17 21:01 Last Admin: 12/03/16 21:36 Dose: 40 mg Verapamil HCl (Calan Sr) 120 mg PO QAM SHERIDAN Stop: 06/03/17 09:01 Last Admin: 12/03/16 08:13 Dose: 120 mg - Imaging and Cardiology Chest Xray: report reviewed Stress Test: report reviewed Echo: report reviewed - EKG Interpretation EKG results cardiology: personally reviewed (comparable to previous baseline ECG ), sinus rhythm, other (SR, evidence of 2nd degree AVB type 1, currently SR 70's ) Consult Discharge Plan - Plan Referrals: Davion Ruelas DO [Primary Care Provider] - (web request 12/03/2016)
--- NOTE | 2016-12-04 10:05 | Internal Med Progress Note ---
<Weston Hall - Last Filed: 12/04/16 17:35> Date of Encounter: 12/04/16 Time of Encounter: 10:02 - Assessment and plan (1) CHF exacerbation Current Visit: Yes Status: Acute Assessment and plan: acute on chronic diastolic CHF based on old echos patient with interstial edema on CXR BLE swelling switced to PO lasix. continue fluid restriction Strict I&Os repeat echo was technically difficult no clear reduction in EF. continue to monitor Qualifiers: Congestive heart failure type: diastolic Qualified Code(s): I50.33 - Acute on chronic diastolic (congestive) heart failure (2) Elevated troponin Current Visit: Yes Status: Acute Assessment and plan: Likely secondary to demand ischemia 2/2 CHF exacerbation ECHO technically limited. No clear wall motion abnormalities or decrease in EF no chest pain. Peaked at 0.07 on second trop. 3rd trop 0.06. (3) Anemia Current Visit: Yes Status: Acute Assessment and plan: Chronic 2/2 to CKD worse than baseline of 10 Today 7.7 Tomorrow check type and screen. consider transfusion. May be contributing to SOB continue to monitor Qualifiers: Anemia type: due to chronic kidney disease Chronic kidney disease stage: stage 3 (moderate) Qualified Code(s): N18.3 - Chronic kidney disease, stage 3 (moderate); D63.1 - Anemia in chronic kidney disease (4) CKD (chronic kidney disease) Current Visit: Yes Status: Chronic Assessment and plan: GILES on CKD Cr. a little worse than baseline 2.01 today baseline ~1.5 likely 2/2 to increased lasix. continue to monitor. K up to 5.5 today gave 30 of Kayexelate. Renal consulted. Holding JESSY, Fenofibrate. Qualifiers: Chronic kidney disease stage: stage 3 (moderate) Qualified Code(s): N18.3 - Chronic kidney disease, stage 3 (moderate) (5) Diabetes Current Visit: Yes Status: Acute Assessment and plan: Chronic. Patient has insulin pump. Was having low sugars managing his sugars with his pump in hospital. Had patient turn off pump. Will manage with SSI. continue to monitor. Qualifiers: Diabetes mellitus type: type 2 Diabetes mellitus complication status: with kidney complications Diabetes mellitus complication detail: with chronic kidney disease Diabetes mellitus rat exterminator insulin use: without correction use Chronic kidney disease stage: stage 3 (moderate) Qualified Code(s): E11.22 - Type 2 diabetes mellitus with diabetic chronic kidney disease; N18.3 - Chronic kidney disease, stage 3 (moderate) (6) Hypertension Current Visit: Yes Status: Chronic Assessment and plan: Chronic, stable. Continue home meds. holding JESSY for GILES Qualifiers: Hypertension type: essential hypertension Qualified Code(s): I10 - Essential (primary) hypertension (7) CAD (coronary artery disease) Current Visit: Yes Status: Chronic Assessment and plan: Chronic, Stable. continue home meds Qualifiers: Coronary Disease-Associated Artery/Lesion type: bypass graft [place] vs. transplanted heart: [place] heart Associated angina: without angina Qualified Code(s): I25.810 - Atherosclerosis of coronary artery bypass graft(s) without angina pectoris (8) Hypothyroidism Current Visit: Yes Status: Acute Assessment and plan: Chronic, Stable. Continue home meds. Qualifiers: Hypothyroidism type: acquired Qualified Code(s): E03.9 - Hypothyroidism, unspecified (9) Wenckebach second degree AV block Current Visit: Yes Status: Acute Assessment and plan: Patient found to be in Wenckebach yesterday afternoon. Hemodynamically stable. Discontinued Verapamil asymptomatic continue to monitor. - Subjective Interval history: Patient reports feeling better. Patient having some epistaxis, 2/2 nasal canula and oxygen. Patient had episode of seocnd degree AV block type I. Hemodynamically stable. No chest pain. - Constitutional Vitals: Temp Pulse Resp BP Pulse Ox 97.9 F 69 18 123/62 93 12/04/16 07:43 12/04/16 07:43 12/04/16 07:53 12/04/16 07:43 12/04/16 07:53 General appearance: Present: mild distress, A&O X 3, answers questions appropriately - Head Head exam: Present: atraumatic, normocephalic - Eye Eye exam: Present: PERRL, conjuntiva pink, sclera anicteric Pupils: Present: PERRL - Neck Neck exam general surgery: Present: supple, trachea midline - Respiratory Respiratory exam: Present: decreased breath sounds, rales. Absent: accessory muscle use, rhonchi, wheezes - Cardiovascular Cardiovascular exam: Present: RRR, +S1, +S2. Absent: diastolic murmur, gallop, rubs, systolic murmur - GI/Abdominal GI/Abdominal exam: Present: normal bowel sounds, soft, no peritoneal signs. Absent: distended, tenderness - Extremities Exam Extremities exam: Present: pedal edema, warm. Absent: calf tenderness, cyanotic - Neurological Exam Neurological exam: Present: alert, oriented X3. Absent: facial droop, speech deficit - Skin Skin exam: Present: dry, intact Internal Medicine: Result - Labs CBC & Chem 7: 12/04/16 06:59 12/04/16 06:59 Labs: Short CBC 12/04/16 Range/Units 06:59 WBC 6.7 (4.3-11.1) K/mcL Hgb 7.7 L (12.9-16.9) g/dL Hct 23.9 L (37.5-50.1) % Plt Count 95 L (140-400) K/mcL BMP 12/03/16 12/04/16 14:26 06:59 Sodium 136 139 Potassium 5.3 H 5.5 H Chloride 99 104 Carbon Dioxide 28 26 BUN 54 H 64 H Creatinine 2.21 H 2.08 H Glucose 192 H 63 L Calcium 9.4 9.1 - ABG Interpretation ABG results: PT/INR, D-dimer PT 13.3 Seconds (9.4-12.1) H 12/01/16 21:22 - VTE Documentation of Mechanical Device: Graduated compression elastic hosiery Consult Discharge Plan - Plan Referrals: aDvion Ruelas DO [Primary Care Provider] - (web request 12/03/2016) <Rohith Faust - Last Filed: 12/04/16 18:49> Date of Encounter: 12/04/16 - Assessment and plan (1) CHF exacerbation Current Visit: Yes Status: Acute Qualifiers: Congestive heart failure type: diastolic Qualified Code(s): I50.33 - Acute on chronic diastolic (congestive) heart failure (2) CKD (chronic kidney disease) Current Visit: Yes Status: Chronic Qualifiers: Chronic kidney disease stage: stage 3 (moderate) Qualified Code(s): N18.3 - Chronic kidney disease, stage 3 (moderate) (3) Hypertension Current Visit: Yes Status: Chronic Qualifiers: Hypertension type: essential hypertension Qualified Code(s): I10 - Essential (primary) hypertension (4) CAD (coronary artery disease) Current Visit: Yes Status: Chronic Qualifiers: Coronary Disease-Associated Artery/Lesion type: bypass graft [place] vs. transplanted heart: [place] heart Associated angina: without angina Qualified Code(s): I25.810 - Atherosclerosis of coronary artery bypass graft(s) without angina pectoris (5) Anemia Current Visit: Yes Status: Acute Qualifiers: Anemia type: due to chronic kidney disease Chronic kidney disease stage: stage 3 (moderate) Qualified Code(s): N18.3 - Chronic kidney disease, stage 3 (moderate); D63.1 - Anemia in chronic kidney disease (6) Diabetes Current Visit: Yes Status: Acute Qualifiers: Diabetes mellitus type: type 2 Diabetes mellitus complication status: with kidney complications Diabetes mellitus complication detail: with chronic kidney disease Diabetes mellitus correction insulin use: without rat exterminator use Chronic kidney disease stage: stage 3 (moderate) Qualified Code(s): E11.22 - Type 2 diabetes mellitus with diabetic chronic kidney disease; N18.3 - Chronic kidney disease, stage 3 (moderate) (7) Hypoglycemia due to insulin Current Visit: Yes Status: Resolved (8) Stasis dermatitis of left lower extremity with venous ulcer due to chronic peripheral venous hypertension Current Visit: Yes Status: Chronic (9) Venous stasis dermatitis of both lower extremities Current Visit: Yes Status: Chronic (10) Morbid obesity with BMI of 45.0-49.9, adult Current Visit: Yes Status: Acute - Constitutional Vitals: Temp Pulse Resp BP Pulse Ox 97.6 F 75 17 143/57 87 12/04/16 16:15 12/04/16 16:15 12/04/16 16:15 12/04/16 16:15 12/04/16 16:15 Internal Medicine: Result - Labs CBC & Chem 7: 12/04/16 06:59 12/04/16 06:59 Labs: Short CBC 12/04/16 Range/Units 06:59 WBC 6.7 (4.3-11.1) K/mcL Hgb 7.7 L (12.9-16.9) g/dL Hct 23.9 L (37.5-50.1) % Plt Count 95 L (140-400) K/mcL BMP 12/04/16 06:59 Sodium 139 Potassium 5.5 H Chloride 104 Carbon Dioxide 26 BUN 64 H Creatinine 2.08 H Glucose 63 L Calcium 9.1 - ABG Interpretation ABG results: PT/INR, D-dimer PT 13.3 Seconds (9.4-12.1) H 12/01/16 21:22 - Attending Attestation I examined this patient and my medical decision-making was reviewed with the Resident Physician on 12/04/16. I agree with the documented findings, disposition and treatment plan as described except to the extent set forth below. Mr Sanford is currently in observation for fluid overload and renal disease. Mr Sanford feels OK at this time. He has been up and walking. He was seen by renal and cardiology today. No fever or chills. No CP or SOB. Exam Alert. Comfortable Heart reg No wheeze Abd obese Edema present I/P 1. Fluid overload 2. CKD Further diagnoses and plan as above.
--- NOTE | 2016-12-04 10:11 | Nephrology Consult Note ---
Date of Encounter: 12/04/16 Time of Encounter: 09:00 Assessment and Plan (1) GILES (acute kidney injury) Current Visit: Yes Status: Acute GILES on CKD stage III, non-oliguric. Most likely d/t hemodynamic/pre-renal etiology associated with diastolic acute on chronic HF and diuretics. I reviewed his home med list in [facility] (and if accurate) he was on a low dose losartan, not lisinopril. The pt tells me that he was hospitalized at [facility] last year roughly in [place] with severe hyerkalemia and had a "reaction" to lisinopril. Recommending holding the JESSY and not start his routine ARB d/t the hyperkalemia. Strict renal diet recommended: i.e., low K+ diet. Lymphedema/chonic LE edema: continue stockings. Reasonable to attempt to continue the loop diuretics with titration based upon SCr changes and UOP response. Follow a renal protective strategy, as able. Fenofibrate can impair the renal excretion of creatinine, and I rec holding for now, and this may help improve his serum creatinine. Thank you for consulting the [facility]: will follow with you. (2) CKD stage 3 secondary to diabetes Current Visit: Yes Status: Chronic (3) Hyperkalemia Current Visit: Yes Status: Acute (4) Lymphedema of both lower extremities Current Visit: Yes Status: Chronic (5) Hypertension Current Visit: Yes Status: Chronic Qualifiers: Hypertension type: essential hypertension Qualified Code(s): I10 - Essential (primary) hypertension (6) Anemia of chronic disease Current Visit: Yes Status: Chronic History of Present Illness - Reason for Consult Consult date: 12/04/16 Acute Kidney Injury, Chronic Kidney Disease, hyperkalemia Requesting physician: Rohith Faust - Chief Complaint GILES, Hyperkalemia, Edema - History of Present Illness Mr. Sanford is a 61 year old male with history of CHF, CAD S/P CABG, hypertension , CKD, anemia, diabetes on insulin pump present to ER for shortness of breath. He has a hx of CKD stage III and is followed by Dr. Anders in the clinic. He did not affirm new N/V/D or uremic symptoms. He did report worsening JOSHUA but relatively stable LE edema, which is chronic and requires wraps. He has seen the lymphedema clinic with [facility] in the past. He denied use of NSAIDs. There is a family hx of CHF and possibly renal disease in his mother but the pt said he was actually adopted. Past Med Surg Social Fam HX - Past Medical History Medical history: asthma, CHF, coronary artery disease, diabetes, GERD, hypertension, renal disease, thyroid disease Psychiatric history: depression - Past Surgical History Surgical History: cholecystectomy, coronary bypass (CABG), sinus surgery - Social History Smoking Status: Former smoker Packs per day: Quit age 21 Smokeless Tobacco Status: No Alcohol use: none Drug use: none - Family History Mother History Unknown: Yes Adopted: Yes Medications and Allergies Albuterol Sulfate [Albuterol Inhaler] 2 puff IH Q4HR PRN 06/27/16 [History] Allopurinol [Zyloprim 300 MG] 300 mg PO DAILY 06/27/16 [History] Ammonium Lactate [Elsa-Hydrolac] 1 appl TP BID 06/27/16 [History] Beclomethasone Diprop 80mcg [Qvar 80 mcg] 1 puff IH BID 06/27/16 [History] Cetirizine HCl [All Day Allergy] 10 mg PO DAILY 06/27/16 [History] Cholecalciferol (D-3) [Vitamin D] 5,000 unit PO DAILY 06/27/16 [History] Clobetasol Propionate [Temovate] 1 appl TP 3XW 06/27/16 [History] Fenofibrate Nanocrystallized [Tricor] 145 mg PO DAILY 06/27/16 [History] Ferrous Sulfate [Iron] 325 mg PO BID 06/27/16 [History] Fluticasone Propionate [Flovent Hfa] 1 puff IH BID 06/27/16 [History] Furosemide [Lasix] 40 mg PO BID 06/27/16 [History] Hydrocortisone 1% CREAM [Cortaid] 1 appl TP BID PRN 06/27/16 [History] Insulin Regular U-500 [HumuLIN R U-500] 0 unit SQ AD MDD PER INSULIN PUMP 06/27 [History] Isosorbide MONOnitrate (24 HR) [Imdur] 30 mg PO DAILY 06/27/16 [History] Ketoconazole Shampoo [Nizoral Shampoo] 1 appl TP 2XW 06/27/16 [History] Levothyroxine [Synthroid] 75 mcg PO DAILY 06/27/16 [History] Lisinopril [Zestril] 5 mg PO DAILY 06/27/16 [History] Nitroglycerin [Nitrostat] 0.4 mg SL AD PRN 06/27/16 [History] Simvastatin [Zocor] 40 mg PO HS 06/27/16 [History] Tramadol HCl [Ultram] 50 mg PO Q4-6H PRN #30 tab 06/27/16 [Rx] Ubidecarenone [Co Q-10] 400 mg PO DAILY 06/27/16 [History] Verapamil HCl [Verapamil ER] 120 mg PO QAM 06/27/16 [History] amLODIPine [Norvasc] 5 mg PO DAILY 06/27/16 [History] Aspirin [Lo-Dose Aspirin EC] 81 mg PO DAILY 12/02/16 [History] 3 Allergy/AdvReac Type Severity Reaction Status Date / Time acetaminophen [From Percocet] Allergy Hives Verified 02/18/15 11:32 atorvastatin [From Lipitor] Allergy Hives Verified 02/18/15 11:32 azithromycin Allergy Hives Verified 06/27/16 12:46 [From Zithromax Z-Sharad] Cefaclor [From Ceclor] Allergy Hives Verified 02/18/15 11:32 cephalexin [From Keflex] Allergy Hives Verified 02/18/15 11:32 ciprofloxacin [From Cipro] Allergy Hives Verified 02/18/15 11:32 clarithromycin [From Biaxin] Allergy Hives Verified 02/18/15 11:30 clindamycin Allergy Hives Verified 02/18/15 11:30 metoprolol Allergy Hives Verified 02/18/15 11:32 moxifloxacin [From Avelox] Allergy Hives Verified 02/18/15 11:29 Oxycodone [From Percocet] Allergy Hives Verified 02/18/15 11:32 prednisone Allergy Hives Verified 02/18/15 11:32 Streptomycin Allergy Hives Verified 02/18/15 11:32 sulfamethoxazole Allergy Hives Verified 02/18/15 11:30 [From Bactrim] trimethoprim [From Bactrim] Allergy Hives Verified 02/18/15 11:30 Review of Systems All Systems: reviewed and no additional remarkable complaints except as stated Exam - Vital Signs Vital signs: Initial Vital Signs Temp Pulse Resp BP Pulse Ox 97.5 F L 76 22 176/68 97 12/01/16 20:49 12/01/16 20:49 12/01/16 20:49 12/01/16 20:49 12/01/16 20:49 Vital Signs - Last 8 Hours Temp Pulse Resp BP Pulse Ox 12/04/16 07:53 18 93 12/04/16 07:43 97.9 F 69 18 123/62 93 12/04/16 05:04 98.4 F 76 18 113/53 91 Intake and Output 12/03/16 12/04/16 12/04/16 23:59 07:59 15:59 Intake Total 240 / 240 360 / 360 Output Total 400 / 400 Balance -160 / -160 360 / 360 Intake: Oral 240 / 240 360 / 360 Output: Urine 400 / 400 Other: Meal Dinner Breakfast Percent of Meal Consumed 100% 100% Weight 144.605 kg Blood Glucose* 184 69 Patient Weight 12/04/16 23:59 Weight 144.605 kg - General Appearance General appearance: well-developed, well-nourished, appears started age EENT: ATNC, PERRL, mucous membranes moist Neck: supple Respiratory: clear Cardiology: edema (consistent with chronic lymphedema, wearing stockings), regular rate, normal S1, normal S2 Gastrointestinal: normoactive bowel sounds, no tenderness, no guarding Integumentary: warm and dry Neurologic: no focal deficit, no asterixis, alert and oriented x3 Musculoskeletal: no erythema, no cyanosis Psychiatric: mood/affect appropriate, cooperative Results - Lab Results 12/04/16 06:59 12/04/16 06:59 Most recent lab results Calcium 9.1 mg/dL (8.6-10.8) 12/04/16 06:59 Magnesium 2.5 mg/dL (1.6-2.6) 12/02/16 04:09 I reviewed the above data avendaño and also reviewed med lists and progress notes from both in- and outpatient notes, labs, I/Os, imaging. Consult Discharge Plan - Plan Referrals: Davion Ruelas DO [Primary Care Provider] - (web request 12/03/2016)
[2016-12-04] MEDS: Furosemide 40 MG TABLET PO SCH (16:28)
[2016-12-05 04:49] LABS: Hematocrit 23.6 % (37.5-50.1); Hemoglobin 7.5 g/dL (12.9-16.9); Immature Platelets 2.2 % (1.1-6.1); Mean Corpuscular HGB Conc 31.8 g/dL (31.6-35.5); Mean Corpuscular Volume 97.5 fL (83.0-100.0); Mean Platelet Volume 10.9 fL (9.4-12.4); Red Blood Count 2.42 M/mcL (4.19-5.50); Red Cell Distribution Width 16.6 % (11.5-14.5)
[2016-12-05 04:58] LABS: Potassium 4.6 mEq/L (3.5-4.5)
[2016-12-05] MEDS: Beclomethasone 80mcg MDI IH SCH ×2 (08:16→20:27)
[2016-12-05] MEDS: Insulin LISPRO 300 UNITS/3 ML VIAL SQ SCH ×7 (08:18→21:27)
[2016-12-05] MEDS: Isosorbide MONOnitrate (24 HR) 30 MG TAB.ER.24H PO SCH (08:19)
[2016-12-05] MEDS: Furosemide 40 MG TABLET PO SCH ×2 (08:19→16:40)
[2016-12-05] MEDS: amLODIPine 5 MG TABLET PO SCH (08:19)
--- NOTE | 2016-12-05 09:42 | Nephrology Progress Note ---
Date of Encounter: 12/05/16 Time of Encounter: 09:41 - Assessment and Plan (1) GILES (acute kidney injury) Current Visit: Yes Status: Acute Stable SCr and UOP adequate No need for MUSICAL STRING MAKER. Hgb 7.5, pt said he's getting PRBCs, which is reasonable (2) CKD stage 3 secondary to diabetes Current Visit: Yes Status: Chronic (3) Hyperkalemia Current Visit: Yes Status: Acute Improved, but to still focus on a low K+ diet. (4) Lymphedema of both lower extremities Current Visit: Yes Status: Chronic (5) Hypertension Current Visit: Yes Status: Chronic Qualifiers: Hypertension type: essential hypertension Qualified Code(s): I10 - Essential (primary) hypertension (6) Anemia of chronic disease Current Visit: Yes Status: Chronic Subjective Principal diagnosis: GILES on CKD, Edema Interval history: Pt was s/e and did not affirm N/V/D or uremic symptoms. Objective - Vital Signs Vital signs: Vital Signs Temp Pulse Resp BP Pulse Ox 12/05/16 08:16 18 96 12/05/16 07:14 98.0 F 78 20 138/61 92 12/05/16 04:29 98.1 F 75 18 135/69 91 12/04/16 23:21 97.9 F 81 18 137/69 92 12/04/16 19:48 16 94 12/04/16 19:04 98.4 F 62 16 145/69 92 12/04/16 16:15 97.6 F 75 17 143/57 87 12/04/16 11:11 97.5 F L 72 17 114/65 93 Intake and Output 12/04/16 12/05/16 12/05/16 23:59 07:59 15:59 Intake Total 240 / 240 360 / 360 Output Total 850 / 850 Balance -610 / -610 360 / 360 Intake: Oral 240 / 240 360 / 360 Output: Urine 850 / 850 Other: Meal Dinner Breakfast Percent of Meal Consumed 100% 100% Weight 142.6 kg Blood Glucose* 227 108 Patient Weight 12/05/16 23:59 Weight 142.6 kg - General Appearance Exam: General appearance: well-developed, well-nourished, appears started age EENT: ATNC, PERRL, mucous membranes moist Neck: supple Respiratory: clear Cardiology: edema (consistent with chronic lymphedema, wearing stockings), regular rate, normal S1, normal S2 Gastrointestinal: normoactive bowel sounds, no tenderness, no guarding Integumentary: warm and dry Neurologic: no focal deficit, no asterixis, alert and oriented x3 Musculoskeletal: no erythema, no cyanosis Psychiatric: mood/affect appropriate, cooperative - Lab 12/05/16 03:30 12/05/16 03:30 Most recent lab results Calcium 9.0 mg/dL (8.6-10.8) 12/05/16 03:30 Magnesium 2.5 mg/dL (1.6-2.6) 12/02/16 04:09 - VTE Documentation of Mechanical Device: Graduated compression elastic hosiery Consult Discharge Plan - Plan Referrals: Davion Ruelas DO [Primary Care Provider] - (web request 12/03/2016)
--- NOTE | 2016-12-05 10:03 | Internal Med Progress Note ---
<Weston Hall - Last Filed: 12/05/16 11:42> Date of Encounter: 12/05/16 Time of Encounter: 08:15 - Assessment and plan (1) CHF exacerbation Current Visit: Yes Status: Acute Assessment and plan: acute on chronic diastolic CHF based on old echos improved symptomatically. patient with interstial edema on CXR BLE swelling switced to PO lasix. continue fluid restriction Strict I&Os repeat echo was technically difficult no clear reduction in EF. continue to monitor Qualifiers: Congestive heart failure type: diastolic Qualified Code(s): I50.33 - Acute on chronic diastolic (congestive) heart failure (2) Elevated troponin Current Visit: Yes Status: Acute Assessment and plan: Likely secondary to demand ischemia 2/2 CHF exacerbation and CKD ECHO technically limited. No clear wall motion abnormalities or decrease in EF no chest pain. Peaked at 0.07 on second trop. 3rd trop 0.06. (3) Anemia Current Visit: Yes Status: Acute Assessment and plan: Chronic 2/2 to CKD worse than baseline of 10 Today 7.5 Will transfuse 2 units PRBC today May be contributing to SOB continue to monitor Qualifiers: Anemia type: due to chronic kidney disease Chronic kidney disease stage: stage 3 (moderate) Qualified Code(s): N18.3 - Chronic kidney disease, stage 3 (moderate); D63.1 - Anemia in chronic kidney disease (4) CKD (chronic kidney disease) Current Visit: Yes Status: Chronic Assessment and plan: GILES on CKD Cr. a little worse than baseline 2.05 today baseline ~1.5 likely 2/2 to increased lasix. continue to monitor. K downt ot 4.6 today Renal consulted. Holding JESSY, Fenofibrate. Qualifiers: Chronic kidney disease stage: stage 3 (moderate) Qualified Code(s): N18.3 - Chronic kidney disease, stage 3 (moderate) (5) Diabetes Current Visit: Yes Status: Acute Assessment and plan: Chronic, stable Patient has insulin pump. Was having low sugars managing his sugars with his pump in hospital. Had patient turn off pump. Will manage with SSI. continue to monitor. Qualifiers: Diabetes mellitus type: type 2 Diabetes mellitus complication status: with kidney complications Diabetes mellitus complication detail: with chronic kidney disease Diabetes mellitus halfway insulin use: without vermin exterminator use Chronic kidney disease stage: stage 3 (moderate) Qualified Code(s): E11.22 - Type 2 diabetes mellitus with diabetic chronic kidney disease; N18.3 - Chronic kidney disease, stage 3 (moderate) (6) Hypertension Current Visit: Yes Status: Chronic Assessment and plan: Chronic, stable. Continue home meds. continue holding JESSY for GILES Qualifiers: Hypertension type: essential hypertension Qualified Code(s): I10 - Essential (primary) hypertension (7) CAD (coronary artery disease) Current Visit: Yes Status: Chronic Assessment and plan: Chronic, Stable. -continue home meds Qualifiers: Coronary Disease-Associated Artery/Lesion type: bypass graft [place] vs. transplanted heart: [place] Associated angina: without angina Qualified Code(s): I25.810 - Atherosclerosis of coronary artery bypass graft(s) without angina pectoris (8) Hypothyroidism Current Visit: Yes Status: Acute Assessment and plan: Chronic, Stable. -Continue home meds. Qualifiers: Hypothyroidism type: acquired Qualified Code(s): E03.9 - Hypothyroidism, unspecified (9) [facility] second degree AV block Current Visit: Yes Status: Acute Assessment and plan: Patient found to be in [facility] yesterday afternoon. -Hemodynamically stable. -Discontinued Verapamil -asymptomatic -continue to monitor. - Subjective Interval history: Patient reports feeling better today. He says his Breathing feels better and his leg swelling has gone down. His hgb has continued to drop while admitted. His baseline is around 10. 7.5 today. Will transfuse 2 units PRBC today. Like 2/ 2 to chronic nose bleeds. - Constitutional Vitals: Temp Pulse Resp BP Pulse Ox 98.0 F 78 18 138/61 96 12/05/16 07:14 12/05/16 07:14 12/05/16 08:16 12/05/16 07:14 12/05/16 08:16 General appearance: Present: mild distress, A&O X 3, answers questions appropriately - Head Head exam: Present: atraumatic, normocephalic - Eye Eye exam: Present: PERRL, conjuntiva pink, sclera anicteric Pupils: Present: PERRL - Neck Neck exam general surgery: Present: supple, trachea midline - Respiratory Respiratory exam: Present: CTAB. Absent: accessory muscle use, rales, rhonchi, wheezes - Cardiovascular Cardiovascular exam: Present: RRR, +S1, +S2. Absent: diastolic murmur, gallop, rubs, systolic murmur - GI/Abdominal GI/Abdominal exam: Present: normal bowel sounds, soft, no peritoneal signs. Absent: distended, tenderness - Extremities Exam Extremities exam: Present: pedal edema (wearing felecia stockings), warm, radial pulses palpable and symmetrical. Absent: calf tenderness, cyanotic - Neurological Exam Neurological exam: Present: alert, oriented X3. Absent: facial droop, speech deficit - Psychiatric Psychiatric exam: Present: normal affect, normal mood - Skin Skin exam: Present: dry, intact, warm Internal Medicine: Result - Labs CBC & Chem 7: 12/05/16 03:30 12/05/16 03:30 Labs: Short CBC 12/05/16 Range/Units 03:30 WBC 6.1 (4.3-11.1) K/mcL Hgb 7.5 L (12.9-16.9) g/dL Hct 23.6 L (37.5-50.1) % Plt Count 94 L (140-400) K/mcL BMP 12/05/16 03:30 Sodium 138 Potassium 4.6 H Chloride 102 Carbon Dioxide 28 BUN 62 H Creatinine 2.05 H Glucose 103 H Calcium 9.0 - ABG Interpretation ABG results: PT/INR, D-dimer PT 13.3 Seconds (9.4-12.1) H 12/01/16 21:22 - VTE Documentation of Mechanical Device: Graduated compression elastic hosiery Consult Discharge Plan - Plan Referrals: Davion Ruelas DO [Primary Care Provider] - (web request 12/03/2016) <Rohith Faust - Last Filed: 12/05/16 18:29> Date of Encounter: 12/05/16 - Assessment and plan (1) Anemia Current Visit: Yes Status: Acute Qualifiers: Anemia type: due to chronic kidney disease Chronic kidney disease stage: stage 3 (moderate) Qualified Code(s): N18.3 - Chronic kidney disease, stage 3 (moderate); D63.1 - Anemia in chronic kidney disease (2) CHF exacerbation Current Visit: Yes Status: Acute Qualifiers: Congestive heart failure type: diastolic Qualified Code(s): I50.33 - Acute on chronic diastolic (congestive) heart failure (3) CKD (chronic kidney disease) Current Visit: Yes Status: Chronic Qualifiers: Chronic kidney disease stage: stage 3 (moderate) Qualified Code(s): N18.3 - Chronic kidney disease, stage 3 (moderate) (4) Hypertension Current Visit: Yes Status: Chronic Qualifiers: Hypertension type: essential hypertension Qualified Code(s): I10 - Essential (primary) hypertension (5) CAD (coronary artery disease) Current Visit: Yes Status: Chronic Qualifiers: Coronary Disease-Associated Artery/Lesion type: bypass graft [place] vs. transplanted heart: [place] Associated angina: without angina Qualified Code(s): I25.810 - Atherosclerosis of coronary artery bypass graft(s) without angina pectoris (6) Diabetes Current Visit: Yes Status: Acute Qualifiers: Diabetes mellitus type: type 2 Diabetes mellitus complication status: with kidney complications Diabetes mellitus complication detail: with chronic kidney disease Diabetes mellitus vermin exterminator insulin use: without halfway use Chronic kidney disease stage: stage 3 (moderate) Qualified Code(s): E11.22 - Type 2 diabetes mellitus with diabetic chronic kidney disease; N18.3 - Chronic kidney disease, stage 3 (moderate) (7) Stasis dermatitis of left lower extremity with venous ulcer due to chronic peripheral venous hypertension Current Visit: Yes Status: Chronic (8) Venous stasis dermatitis of both lower extremities Current Visit: Yes Status: Chronic (9) Morbid obesity with BMI of 45.0-49.9, adult Current Visit: Yes Status: Acute - Constitutional Vitals: Temp Pulse Resp BP Pulse Ox 98.0 F 82 16 136/66 97 12/05/16 17:33 12/05/16 17:33 12/05/16 17:33 12/05/16 17:33 12/05/16 17:33 Internal Medicine: Result - Labs CBC & Chem 7: 12/05/16 03:30 12/05/16 03:30 - ABG Interpretation ABG results: PT/INR, D-dimer PT 13.3 Seconds (9.4-12.1) H 12/01/16 21:22 - Attending Attestation I examined this patient and my medical decision-making was reviewed with the Resident Physician on 12/05/16. I agree with the documented findings, disposition and treatment plan as described except to the extent set forth below. Mr. Sanford is currently admitted for acute CHF, renal failure and anemia. He remains moderate to high risk due to potential renal and cardiac issues. He will receive blood today. Mr Sanford feels OK. No fever or chills. No CP or SOB. Feels overall like he is returning to baseline. Exam Alert. Comfortable Heart reg No wheeze Abd soft Edema about the same I/P 1. Anemia due to CKD 2. CKD Further diagnoses and plan as above.
[2016-12-05] MEDS ORDERED: 0.9 % Sodium Chloride 250 ML ONE ×2 (10:36→14:11)
--- NOTE | 2016-12-05 14:41 | Electrocardiograph Report ---
[place] [id number] Test Date: 2016-12-03 Pat Name: Chris Sanford Department: 112 Room: 2A13 Gender: M Delivery Consultant: : [id number] Requested By: Rohith Faust Order Number: [id number] Reading MD: Shayla Russo Measurements Intervals [place] Rate: 59 P: DE: 0 QRS: -25 QRSD: 114 T: 122 QT: 441 QTc: 441 Interpretive Statements SINUS BRADYCARDIA WITH 2ND DEGREE AV BLOCK, MOBITZ TYPE I, Wenckebach ANTEROSEPTAL MYOCARDIAL INFARCTION, OF INDETERMINATE AGE Electronically Signed On 12-05-2016 14:39:33 EDT by Shayla Russo
[2016-12-05] MEDS: Neosporin OINT 1 APPL PACKET TP SCH (21:29)
[2016-12-05] MEDS ORDERED: Sennosides/Docusate Sodium TABLET PO PRN (21:36)
[2016-12-06] MEDS: Insulin LISPRO 300 UNITS/3 ML VIAL SQ SCH ×3 (05:19→09:05)
[2016-12-06 05:32] LABS: Immature Granulocytes % 0.3 % (0-4); Mean Corpuscular Volume 96.4 fL (83.0-100.0)
[2016-12-06 05:35] LABS: Basophils % 0.6 %; Eosinophils # 0.2 K/mcL (0.0-0.6); Eosinophils % 3.2 %; Hemoglobin 8.7 g/dL (12.9-16.9); Immature Platelets 1.7 % (1.1-6.1); Lymphocytes # 1.6 K/mcL (0.6-4.6); Lymphocytes % 25.7 %; Mean Corpuscular HGB Conc 32.2 g/dL (31.6-35.5); Mean Corpuscular Hemoglobin 31.1 pg (28.0-33.3); Mean Platelet Volume 10.5 fL (9.4-12.4); Monocytes # 0.8 K/mcL (0.0-1.3); Monocytes % 13.3 %; Neutrophils # 3.6 K/mcL (1.6-8.9); Red Cell Distribution Width 17.7 % (11.5-14.5); Segmented Neutrophils % 56.9 %
[2016-12-06 05:37] LABS: Platelet Count 87 K/mcL (140-400)
[2016-12-06 05:48] LABS: Calcium 9.1 mg/dL (8.6-10.8)
[2016-12-06 06:47] VITALS: BP 147/69
[2016-12-06] MEDS: Beclomethasone 80mcg MDI IH SCH (08:02)
--- NOTE | 2016-12-06 08:51 | Discharge Summary ---
<Weston Hall - Last Filed: 12/06/16 15:45> Date of Encounter: 12/06/16 Time of Encounter: 08:30 - Discharge Diagnosis (1) CHF exacerbation Priority: Secondary Status: Acute Qualifiers: Congestive heart failure type: diastolic Qualified Code(s): I50.33 - Acute on chronic diastolic (congestive) heart failure (2) Elevated troponin Priority: Secondary Status: Acute (3) Anemia Priority: Secondary Status: Acute Qualifiers: Anemia type: due to chronic kidney disease Chronic kidney disease stage: stage 3 (moderate) Qualified Code(s): N18.3 - Chronic kidney disease, stage 3 (moderate); D63.1 - Anemia in chronic kidney disease (4) CKD (chronic kidney disease) Priority: Primary Status: Chronic Qualifiers: Chronic kidney disease stage: stage 3 (moderate) Qualified Code(s): N18.3 - Chronic kidney disease, stage 3 (moderate) (5) Diabetes Priority: Secondary Status: Acute Qualifiers: Diabetes mellitus type: type 2 Diabetes mellitus complication status: with kidney complications Diabetes mellitus complication detail: with chronic kidney disease Diabetes mellitus usp insulin use: without usp use Chronic kidney disease stage: stage 3 (moderate) Qualified Code(s): E11.22 - Type 2 diabetes mellitus with diabetic chronic kidney disease; N18.3 - Chronic kidney disease, stage 3 (moderate) (6) Hypertension Priority: Secondary Status: Chronic Qualifiers: Hypertension type: essential hypertension Qualified Code(s): I10 - Essential (primary) hypertension (7) CAD (coronary artery disease) Priority: Secondary Status: Chronic Qualifiers: Coronary Disease-Associated Artery/Lesion type: bypass graft [place] vs. transplanted heart: [place] heart Associated angina: without angina Qualified Code(s): I25.810 - Atherosclerosis of coronary artery bypass graft(s) without angina pectoris (8) Hypothyroidism Priority: Secondary Status: Acute Qualifiers: Hypothyroidism type: acquired Qualified Code(s): E03.9 - Hypothyroidism, unspecified (9) Wenc[place]bach second degree AV block Priority: Secondary Status: Acute - Discharge Medications Prescriptions: Sennosides/Docusate Sodium [Senna Plus] 2 each PO BID PRN #60 tab PRN Reason: Constipation Home Medications: Albuterol Sulfate [Albuterol Inhaler] 2 puff IH Q4HR PRN 06/27/16 [History] Allopurinol [Zyloprim 300 MG] 300 mg PO DAILY 06/27/16 [History] Ammonium Lactate [Elsa-Hydrolac] 1 appl TP BID 06/27/16 [History] Beclomethasone Diprop 80mcg [QVAR 80 mcg] 1 puff IH BID 06/27/16 [History] Cetirizine HCl [All Day Allergy] 10 mg PO DAILY 06/27/16 [History] Cholecalciferol (D-3) [Vitamin D] 5,000 unit PO DAILY 06/27/16 [History] Clobetasol Propionate [Temovate] 1 appl TP 3XW 06/27/16 [History] Ferrous Sulfate [Iron] 325 mg PO BID 06/27/16 [History] Fluticasone Propionate [Flovent Hfa] 1 puff IH BID 06/27/16 [History] Furosemide [Lasix] 40 mg PO BID 06/27/16 [History] Hydrocortisone 1% CREAM [Cortaid] 1 appl TP BID PRN 06/27/16 [History] Insulin Regular U-500 [HumuLIN R U-500] 0 unit SQ AD MDD PER INSULIN PUMP 06/27 [History] Isosorbide MONOnitrate (24 HR) [Imdur] 30 mg PO DAILY 06/27/16 [History] Ketoconazole Shampoo [Nizoral Shampoo] 1 appl TP 2XW 06/27/16 [History] Levothyroxine [Synthroid] 75 mcg PO DAILY 06/27/16 [History] Nitroglycerin [Nitrostat] 0.4 mg SL AD PRN 06/27/16 [History] Simvastatin [Zocor] 40 mg PO HS 06/27/16 [History] Tramadol HCl [Ultram] 50 mg PO Q4-6H PRN #30 tab 06/27/16 [Rx] Ubidecarenone [Co Q-10] 400 mg PO DAILY 06/27/16 [History] amLODIPine [Norvasc] 5 mg PO DAILY 06/27/16 [History] Aspirin [Lo-Dose Aspirin EC] 81 mg PO DAILY 12/02/16 [History] Ergocalciferol (VITAMIN D2) [Drisdol (50,000 Unit)] 50,000 unit PO QWEEK [Rx] Sennosides/Docusate Sodium [Senna Plus] 2 each PO BID PRN #60 tab 12/06/16 [Rx] Allergies/Adverse Reactions: 3 Allergy/AdvReac Type Severity Reaction Status Date / Time acetaminophen [From Percocet] Allergy Hives Verified 02/18/15 11:32 atorvastatin [From Lipitor] Allergy Hives Verified 02/18/15 11:32 azithromycin Allergy Hives Verified 06/27/16 12:46 [From Zithromax Z-Sharad] Cefaclor [From Ceclor] Allergy Hives Verified 02/18/15 11:32 cephalexin [From Keflex] Allergy Hives Verified 02/18/15 11:32 ciprofloxacin [From Cipro] Allergy Hives Verified 02/18/15 11:32 clarithromycin [From Biaxin] Allergy Hives Verified 02/18/15 11:30 clindamycin Allergy Hives Verified 02/18/15 11:30 metoprolol Allergy Hives Verified 02/18/15 11:32 moxifloxacin [From Avelox] Allergy Hives Verified 02/18/15 11:29 Oxycodone [From Percocet] Allergy Hives Verified 02/18/15 11:32 prednisone Allergy Hives Verified 02/18/15 11:32 Streptomycin Allergy Hives Verified 02/18/15 11:32 sulfamethoxazole Allergy Hives Verified 02/18/15 11:30 [From Bactrim] trimethoprim [From Bactrim] Allergy Hives Verified 02/18/15 11:30 Procedures/tests Complete & Pending: CXR: FINDINGS: Prior sternal splitting procedure for CABG. The heart is borderline enlarged and unchanged. There is suspicion of mild pulmonary interstitial edema. Lungs are otherwise clear. No acute confluent infiltrate, pneumothorax or pleural effusion. XR/XR chest 1V portable IMPRESSION: Stable borderline cardiomegaly. Suspicion of mild interstitial edema. Lungs are otherwise clear. ECHO: "Limited Study. Technically suboptimal study due to poor sound wave transmission.Overall LV function appears grossly normal but cannot exclude subtle wall motion abnormalities due to technical limitations of study. Valves not well visualized on this study. No Doppler Performed. - Notes to Outpatient Provider Patient had a lower than baseline hgb in the hospital. This is likely secondary to his chronic epistaxis. Please consider follow up with GI and ENT for patient to further evaluate cause of acute on chronic anemia. Unable to set up prior to discharge as patient was not seen by these services in house. Thank you. Date of admission: 12/05/16 12:54 Primary care physician: Davion Ruelas DO Consults: Nephrology Cardiology Discharging clinician: Weston Hall Anticipated date of discharge: 12/06/16 - Patient Status Disposition: Home, Self-Care Condition: Fair Functional capacity at discharge: independent ambulation Overall status at discharge: patient is progressing back to baseline - Discharge Instructions Follow Up With: Cardiology [facility] [Provider Group] (Office will call you with an appointment date and time) Davion Ruelas DO [Primary Care Provider] - 12/13/16 1:30 pm () Daxa Conley MD [Partnered Physician] - (Ask your PCP to refer you to GI [facility]) Additional Instructions: Please follow up with your primary care provider within 1 week of discharge. Please follow up with Gastroenterology. Please follow up with Cardiology. Please follow up with ENT. Please follow up with nephrology in 3-6 weeks. Please resume all your home medications except stop taking verapamil, fenofibrate, and lisinopril. Please discuss these medications with your primary care provider. Please start taking Senna for constipation. Please get a CBC and BMP drawn in 1 week. Please return to hospital if you experience any new or worsening symptoms. - Diet and Activity Activity: resume usual activities as tolerated Diet: advance to your usual diet, low salt diet Interval History: Patient reports feeling much better and is eager to go home. He denies SOB, Chest pain, abd pain, N, V, D. Patient received 2 untis of PRBC and his hgb improved. He will need out patient follow up with GI and ENT for the source of his acute on chronic anemia. Likely 2/2 to epistaxis, but GI bleeding must be ruled out as well. Hospital course: Mr. Sanford is a 61 year old male c PMHx of CHF, CKD, anemia, DM, HTN, HLD, CAD, hypothyroidism who reports to the hospital c/o SOB and LE swelling. Patient was initially treated for CHF exacerbation with IV lasix, fluid restriction. Patient had minimal improvement, and worsening of his CKD. He then developed an episode of second degree AV block type I wenckebach. Cardiology and Nephrology were consulted. Patient was taken off his verapamil due to his arrythmia and taken off his Lisinopril and fenofibrate due to his worsening kidney function. It was felt his increased fluid was more due to his chronic kidney disease rather than his CHF. Patient experienced some episodes of hyperkalemia secondary to his worsening kidney function which were treated with kayexcelate. Patient was also found to be more anemic than usual so he was transfused 2 units of PRBC. This acute on chronic anemia likely secondary to epistaxis. Patient will need out patient follow up as well as a CBC and BMP as an out patient. - Time Spent with Patient Total time spent providing and/or coordinating discharge services: 40 minutes - Constitutional Vitals: Temp Pulse Resp BP Pulse Ox 98.4 F 76 18 147/69 92 12/06/16 06:43 12/06/16 06:43 12/06/16 06:43 12/06/16 06:43 12/06/16 06:43 General appearance: Present: mild distress, A&O X 3, answers questions appropriately - Head Head exam: Present: atraumatic, normocephalic - Eye Eye exam: Present: PERRL, conjuntiva pink, sclera anicteric Pupils: Present: PERRL - Neck Neck exam general surgery: Present: supple, trachea midline - Respiratory Respiratory exam: Present: CTAB. Absent: accessory muscle use, rales, rhonchi, wheezes - Cardiovascular Cardiovascular exam: Present: RRR, +S1, +S2. Absent: diastolic murmur, gallop, rubs, systolic murmur - GI/Abdominal GI/Abdominal exam: Present: normal bowel sounds, soft, no peritoneal signs. Absent: distended, tenderness - Extremities Exam Extremities exam: Present: pedal edema (wearing felecia stockings), warm. Absent: calf tenderness, cyanotic - Neurological Exam Neurological exam: Present: alert, oriented X3. Absent: facial droop, speech deficit - Skin Skin exam: Present: dry, intact - VTE Documentation of Mechanical Device: Graduated compression elastic hosiery <Rohith Faust - Last Filed: 12/06/16 18:26> Date of Encounter: 12/06/16 - Discharge Diagnosis (1) CHF exacerbation Priority: Primary Status: Acute Qualifiers: Congestive heart failure type: diastolic Qualified Code(s): I50.33 - Acute on chronic diastolic (congestive) heart failure (2) Anemia Status: Acute Qualifiers: Anemia type: due to chronic kidney disease Chronic kidney disease stage: stage 3 (moderate) Qualified Code(s): N18.3 - Chronic kidney disease, stage 3 (moderate); D63.1 - Anemia in chronic kidney disease (3) CKD (chronic kidney disease) Status: Chronic Qualifiers: Chronic kidney disease stage: stage 3 (moderate) Qualified Code(s): N18.3 - Chronic kidney disease, stage 3 (moderate) (4) Hypertension Status: Chronic Qualifiers: Hypertension type: essential hypertension Qualified Code(s): I10 - Essential (primary) hypertension (5) CAD (coronary artery disease) Status: Chronic Qualifiers: Coronary Disease-Associated Artery/Lesion type: bypass graft [place] vs. transplanted heart: [place] heart Associated angina: without angina Qualified Code(s): I25.810 - Atherosclerosis of coronary artery bypass graft(s) without angina pectoris (6) Diabetes Status: Acute Qualifiers: Diabetes mellitus type: type 2 Diabetes mellitus complication status: with kidney complications Diabetes mellitus complication detail: with chronic kidney disease Diabetes mellitus termite inspector insulin use: without usp use Chronic kidney disease stage: stage 3 (moderate) Qualified Code(s): E11.22 - Type 2 diabetes mellitus with diabetic chronic kidney disease; N18.3 - Chronic kidney disease, stage 3 (moderate) (7) Stasis dermatitis of left lower extremity with venous ulcer due to chronic peripheral venous hypertension Priority: Secondary Status: Chronic (8) Venous stasis dermatitis of both lower extremities Priority: Secondary Status: Chronic (9) Morbid obesity with BMI of 45.0-49.9, adult Priority: Secondary Status: Chronic Date of admission: 12/05/16 12:54 Primary care physician: Davion Ruelas DO [facility] course: Mr. Sanford is a 61 year old male - Time Spent with Patient Total time spent providing and/or coordinating discharge services: 38 min - Constitutional Vitals: Temp Pulse Resp BP Pulse Ox 98.4 F 76 18 147/69 84 12/06/16 06:43 12/06/16 06:43 12/06/16 08:02 12/06/16 06:43 12/06/16 08:02 - Attending Attestation I examined this patient and my medical decision-making was reviewed with the Resident Physician on 12/06/16. I agree with the documented findings, disposition and treatment plan as described except to the extent set forth below. Mr Sanford had been admitted for acute exac CHF and anemia. He is doing OK today. He is afebrile with stable vitals and ready for discharge home. Exam Alert. Comfortable Heart not tachy No wheeze Edema about the same. Plan D/C home today Follow up with PCP Should see GI
[2016-12-06] MEDS: Furosemide 40 MG TABLET PO SCH (09:06)
[2016-12-06] MEDS: Neosporin OINT 1 APPL PACKET TP SCH (09:06)
[2016-12-06] MEDS: amLODIPine 5 MG TABLET PO SCH (09:06)
[2016-12-06] MEDS: Isosorbide MONOnitrate (24 HR) 30 MG TAB.ER.24H PO SCH (09:06)
--- NOTE | 2016-12-06 10:11 | Nephrology Progress Note ---
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 (2) CKD stage 3 secondary to diabetes Status: Chronic Hx of CKD stage III most likely d/t DM and Obesity (3) Hyperkalemia Status: Acute Improved, but to still focus on a low K+ diet going forward. (4) Lymphedema of both lower extremities Status: Chronic Chronic. Cont the LE stockings (5) Hypertension Status: Chronic Qualifiers: Hypertension type: essential hypertension Qualified Code(s): I10 - Essential (primary) hypertension (6) Anemia of chronic disease Status: Chronic Subjective Principal diagnosis: GILES on CKD, Edema Interval history: Pt was s/e and did not affirm N/V/D or uremic symptoms. He said his swelling has improved. He voiced hoping to discharge today. He son and the floor RN were present in the room during my exam. Objective - Vital Signs Vital signs: Vital Signs Temp Pulse Resp BP Pulse Ox 12/06/16 06:43 98.4 F 76 18 147/69 92 12/06/16 04:37 97.7 F 74 16 119/68 93 12/05/16 23:43 97.8 F 74 16 146/65 93 12/05/16 20:29 18 93 12/05/16 19:25 98.3 F 46 16 144/61 94 12/05/16 17:33 98.0 F 82 16 136/66 97 12/05/16 16:39 98.1 F 61 20 154/75 92 12/05/16 14:55 98.1 F 78 16 149/71 12/05/16 14:41 97.8 F 66 16 94 12/05/16 14:04 98.2 F 82 18 146/72 95 Intake and Output 12/05/16 12/06/16 12/06/16 23:59 07:59 15:59 Intake Total 590 / 590 0 / 0 Output Total 1000 / 1000 500 / 500 Balance 590 / 590 -1000 / -1000 -500 / -500 Intake: Oral 240 / 240 0 / 0 Blood Product 350 / 350 Rbcs Leuko Poor As-1 350 / 350 Unit [id number] Output: Urine 1000 / 1000 500 / 500 Other: Meal Dinner Percent of Meal Consumed 100% Weight 142.5 kg Blood Glucose* 268 154 Patient Weight 12/06/16 23:59 Weight 142.5 kg - General Appearance Exam: General appearance: well-developed, well-nourished, appears started age EENT: ATNC, PERRL, mucous membranes moist Neck: supple Respiratory: clear Cardiology: edema (consistent with chronic lymphedema, wearing stockings), regular rate, normal S1, normal S2 Gastrointestinal: normoactive bowel sounds, no tenderness, no guarding Integumentary: warm and dry Neurologic: no focal deficit, no asterixis, alert and oriented x3 Musculoskeletal: no erythema, no cyanosis Psychiatric: mood/affect appropriate, cooperative - Lab 12/06/16 05:05 12/06/16 05:05 Most recent lab results Calcium 9.1 mg/dL (8.6-10.8) 12/06/16 05:05 Magnesium 2.5 mg/dL (1.6-2.6) 12/02/16 04:09 - VTE Documentation of Mechanical Device: Graduated compression elastic hosiery Consult Discharge Plan - Plan Additional Instructions: Please follow up with your primary care provider within 1 week of discharge. Please follow up with Gastroenterology. Please follow up with Cardiology. Please follow up with ENT. Please follow up with nephrology in 3-6 weeks. Please resume all your home medications except stop taking verapamil, fenofibrate, and lisinopril. Please discuss these medications with your primary care provider. Please start taking Senna for constipation. Please get a CBC and BMP drawn in 1 week. Please return to hospital if you experience any new or worsening symptoms. Referrals: [facility] [Provider Group] (Office will call you with an appointment date and time) Davion Ruelas DO [Primary Care Provider] - 12/13/16 1:30 pm () Daxa Conley MD [Partnered Physician] - (Ask your PCP to refer you to GI physcian) Prescriptions: Sennosides/Docusate Sodium [Senna Plus] 2 each PO BID PRN #60 tab PRN Reason: Constipation
== END 2016-12-06 10:45 | disposition home or self-care (01) | DRG 291 ==
LOC: 2ANU 20:48 → EMEROO 20:48 → 2ANU 12-02 00:55 → SUATTDRO 12-02 01:16 → 2ANU 12-04 13:30
PROVIDERS: ADMIT Internal Medicine; ATTEND Internal Medicine

== ENCOUNTER 2018-10-09 17:47 | Inpatient (IN) ==
[2018-10-09] MEDS ORDERED: Naloxone 0.4 MG/ML INJ IVP PRN (20:32)
[2018-10-09] MEDS ORDERED: Ondansetron 4 MG/2 ML VIAL IVP PRN (20:32)
[2018-10-09] MEDS ORDERED: *HR* Promethazine 25 MG/ML VIAL IVP PRN (20:32)
[2018-10-09] MEDS ORDERED: Dextrose Gel 15 GM/37.5 ML TUBE PO PRN ×2 (20:42)
[2018-10-09] MEDS ORDERED: D5% in Water 1,000 ML IVC PRN (20:42)
[2018-10-09] MEDS ORDERED: *HR* Dextrose 50 % in Water (Syg) 50 ML SYRINGE IVP PRN (20:42)
[2018-10-09] MEDS ORDERED: *HR* Heparin 5,000 UNIT/ML VIAL IVP ONE (20:43)
[2018-10-09] MEDS ORDERED: *HR* Heparin 5,000 UNIT/ML VIAL IVP PRN ×2 (20:43)
[2018-10-09] MEDS ORDERED: Ergocalciferol (VIT D2) 50,000 UNIT (1.25MG) CAP PO SCH (20:45)
--- NOTE | 2018-10-09 20:51 | Internal Med History&Physical ---
<Fany Dominguez R - Last Filed: 10/09/18 21:43> Date of Encounter: 10/09/18 Time of Encounter: 20:48 Internal Medicine - H&P: HPI History of present illness: Mr. Sanford is a 63 year old male transferred from [facility] secondary to a CHF exacerbation, diarrhea and elevated troponin. Patient has a history of atrial fibrillation, CHF, CAD stage IV, COPD, recent treatment for C. difficile, diabetes, hypertension. Patient had reported diarrhea for the past 2 weeks which have increased over the past 2-3 days along with shortness of breath. He has had a productive cough for the past 2-3 days as well. Patient had a workup done at [facility] which revealed a remarkably elevated pro-BNP of 2898.4, and a high sensitivity troponin which was less than 0.056. Initial EKG showed atrial fibrillation with a heart rate of 111 with a nonspecific intraventricular conduction delay. There were no ST segment changes compatible with ischemic changes. Repeat EKG again showed atrial fibrillation at 90 bpm with the same findings. Patient's other lab work demonstrated anemia at 8.5 with leukocytosis of 12.4 and a lactic acidosis of 2.1. Patient was given a 250 mL bolus but further fluids were Fergon due to his history of CHF and fluid overload status. Patient's C reactive protein was elevated at 4.3. Chest x-ray showed pulmonary edema and cardiomegaly with small bilateral pleural effusions and without source of acute infection. He was given 20 mg of Lasix IV and was started on a heparin drip. Patient was placed on BiPAP due to his respiratory distress and he achieved good therapeutic results from this. [facility] recommended CT scanning the patient's chest but their CT scanner was down and when they decided to transfer to the main campus the daughter preferred transfer to our facility. Patient denies fevers, chest pain, nausea and vomiting, dysuria. He states his abdominal pain is much better now and he is not as short of breath. Patient is full code. Past Med Surg Social Fam HX - Past Medical History Attestation: Yes The following information was validated with the patient. Source: patient, old records reviewed Medical history: asthma, CHF, coronary artery disease, diabetes, GERD, hyperlipidemia, hypertension, renal disease, thyroid disease, other Additional medical history: ckd 4 Psychiatric history: depression - Past Surgical History Surgical History: cholecystectomy, coronary bypass (CABG), sinus surgery Additional surgical history: CABG x3, BCC removed from L ear, heart catheterization, cataracts removed, eye surgery, - Social History Smoking Status: Former smoker Smokeless Tobacco Status: No Alcohol use: none Drug use: none - Family History Mother Adopted: Yes Living Status: Hx Family Endocrine Disorder: Yes (Diabetes) Father Living Status: Hx Family Cardiac Disorders: Yes (Coronary artery disease) Internal Medicine - H&P: Meds Albuterol Sulfate [Proventil Inhaler] 2 puff IH Q4HR PRN 06/27/16 [History] Beclomethasone Diprop 80mcg [QVAR 80 mcg] 1 puff IH BID 06/27/16 [History] Cholecalciferol (D-3) [Vitamin D] 5,000 unit PO DAILY 06/27/16 [History] Ferrous Sulfate [Iron] 325 mg PO BID 06/27/16 [History] Simvastatin [Zocor] 40 mg PO HS 06/27/16 [History] amLODIPine [Norvasc] 10 mg PO DAILY 06/27/16 [History] Ergocalciferol (VITAMIN D2) [Drisdol (50,000 Unit)] 50,000 unit PO QWEEK 12/06/16 [Rx] Albuterol Neb [Proventil Neb] 2.5 mg IH TID PRN 06/18/18 [History] Bumetanide [Bumex] 1 mg PO DAILY 06/18/18 [History] Insulin LISPRO [Humalog Kwikpen U-200] 0 unit SQ AD 06/18/18 [History] Levothyroxine [Synthroid] 75 mcg PO 0630 06/18/18 [History] Montelukast [Singulair] 10 mg PO HS 06/18/18 [History] Sevelamer [Renvela] 800 mg PO TIDWM 06/18/18 [History] Sodium Bicarbonate 650 mg PO TID 06/18/18 [History] Vancomycin Oral Soln [Firvanq] 125 mg PO BID udc 07/05/18 [Rx] Vancomycin Oral Soln [Firvanq] 125 mg PO DAILY udc 07/05/18 [Rx] Vancomycin Oral Soln [Firvanq] 125 mg PO Q48H udc 07/05/18 [Rx] Vancomycin Oral Soln [Firvanq] 125 mg PO Q72H udc 07/05/18 [Rx] Vancomycin Oral Soln [Firvanq] 125 mg PO TID udc 07/05/18 [Rx] Allergy/AdvReac Type Severity Reaction Status Date / Time acetaminophen [From Percocet] Allergy Hives Verified 12/24/16 13:43 atorvastatin [From Lipitor] Allergy Hives Verified 12/24/16 13:43 azithromycin Allergy Hives Verified 12/24/16 13:43 [From Zithromax Z-Sharad] Cefaclor [From Ceclor] Allergy Hives Verified 12/24/16 13:43 cephalexin [From Keflex] Allergy Hives Verified 12/24/16 13:43 ciprofloxacin [From Cipro] Allergy Hives Verified 12/24/16 13:43 clarithromycin [From Biaxin] Allergy Hives Verified 12/24/16 13:43 clindamycin Allergy Hives Verified 12/24/16 13:43 metoprolol Allergy Hives Verified 12/24/16 13:43 moxifloxacin [From Avelox] Allergy Hives Verified 12/24/16 13:43 oxycodone [From Percocet] Allergy Hives Verified 12/24/16 13:43 prednisone Allergy Hives Verified 12/24/16 13:43 Streptomycin Allergy Hives Verified 12/24/16 13:43 sulfamethoxazole Allergy Hives Verified 12/24/16 13:43 [From Bactrim] trimethoprim [From Bactrim] Allergy Hives Verified 12/24/16 13:43 All Systems PM: A 10-system review of systems was performed and is negative for pertinent findings except as documented above in the HPI. - Constitutional Constitutional: weakness, no fever(s) - EENT Eyes: no blurry vision, no change in vision - Cardiovascular Cardiovascular ROS IM: dyspnea, dyspnea on exertion, edema, no chest pain - Respiratory Respiratory: cough, dyspnea, excessive phlegm production, change in phlegm color, no hemoptysis - Gastrointestinal Gastrointestinal: abdominal pain, diarrhea, no hematochezia, no melena, no nause a, no vomiting - Genitourinary Genitourinary ROS male: no dysuria, no hematuria - Integumentary Integumentary IM: other (edema) - Allergic/Immunologic Allergic/Immunologic: no wheezing - Constitutional Vitals: Temp Pulse Resp BP Pulse Ox 99.9 F H 92 28 120/64 100 10/09/18 20:00 10/09/18 20:00 10/09/18 20:36 10/09/18 20:36 10/09/18 20:36 General appearance: Present: A&O X 3, pleasant, no acute distress, answers questions appropriately Exam: Pt is on BiPAP and appears to be in NAD. Answers questions appropriately. - Head Head exam: Present: atraumatic, normal inspection, normocephalic - Eye Eye exam: Present: EOMI, PERRL - ENT ENT exam: Present: mucous membranes dry - Neck Neck exam general surgery: Present: normal inspection. Absent: tenderness - Respiratory Respiratory exam: Present: rales. Absent: chest wall tenderness - Cardiovascular Cardiovascular exam: Present: irregular rhythm - GI/Abdominal GI/Abdominal exam: Present: soft. Absent: distended, firm, rebound, rigid, ten derness - Extremities Exam Additional comments: Left leg BKA. Right leg with erythema and chronic venous stasis changes and drainage of serous fluid from wounds on heel. Clean bandages were removed from the right leg without evidence of blood or purulent discharge. Leg is not overly warm to touch. 2+ pitting edema of the entire right leg which patient s tates is chronic. - Neurological Exam Neurological exam: Present: alert, oriented X3, no focal deficits - Skin Skin exam: Present: normal color (with exception of right leg), warm. Absent: rash - Assessment and Plan (1) Acute exacerbation of CHF (congestive heart failure) Current Visit: Yes Status: Acute Assessment and plan: Patient with increasing shortness of breath and productive cough for the past 3 days ProBNP at [facility] significantly elevated at almost 3000 Chest x-ray [facility] showed pulmonary edema with bilateral pleural effusions and cardiomegaly Patient on BiPAP with good effect for patient's subjective shortness of breath 20 mg Lasix given at [facility] Repeat laboratory results pending Continue to dichrise as able based on kidney function Patient was reported to have an increased troponin at [facility] but lab results sent with the patient show a troponin within normal limits Repeat troponin pending Patient currently on heparin drip Last Echo done in may shows dialstolid dysfunction of 60-65% Echo to determine patient's current heart function Continue home meds Qualifiers: Heart failure type: diastolic Qualified Code(s): I50.33 - Acute on chronic diastolic (congestive) heart failure (2) Anemia Current Visit: Yes Status: Chronic Assessment and plan: Patient with history of chronic anemia due to CKD Hemoglobin at [facility] 8.5 Repeat CBC pending Patient on heparin drip Patient has bowel movement we will check for GI source of bleeding Continue to trend hemoglobin Qualifiers: Anemia type: due to chronic kidney disease Chronic kidney disease stage: stage 3 (moderate) Qualified Code(s): N18.3 - Chronic kidney disease, stage 3 (moderate); D63.1 - Anemia in chronic kidney disease (3) C. difficile diarrhea Current Visit: Yes Status: Suspected Assessment and plan: Patient with history of C. difficile colitis and treatment with oral vancomycin Patient has had diarrhea for the past 2 weeks Once patient has a watery bowel movement we will send a GI panel to look for recurrent C. difficile colitis Empiric treatment with flagyl and oral vancomycin Contact precautions (4) CKD (chronic kidney disease) Current Visit: Yes Status: Chronic Assessment and plan: Patient with history of this EKG Repeat BMP pending Avoid nephrotoxic agents Qualifiers: Chronic kidney disease stage: stage 3 (moderate) Qualified Code(s): N18.3 - Chronic kidney disease, stage 3 (moderate) (5) Diabetes Current Visit: Yes Status: Chronic Assessment and plan: Continue home meds Nothing by mouth due to BiPAP Every 6 hours Accu-Cheks and low-dose sliding scale insulin Qualifiers: Diabetes mellitus type: type 2 Diabetes mellitus 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 Diabetes mellitus complication status: with skin complications Diabetes mellitus complication detail: with foot ulcer Qualified Code(s): E11.621 - Type 2 diabetes mellitus with foot ulcer; L97.509 - Non-pressure chronic ulcer of other part of unspecified foot with unspecified severity; Z79.4 - nutritionist public health (current) use of insulin (6) Hypertension Current Visit: Yes Status: Chronic Assessment and plan: Continue home meds Qualifiers: Hypertension type: essential hypertension Qualified Code(s): I10 - Essential (primary) hypertension (7) A-fib Current Visit: Yes Status: Chronic Assessment and plan: On Heparin drip, rate controlled Qualifiers: Atrial fibrillation type: unspecified Qualified Code(s): I48.91 - Unspe cified atrial fibrillation (8) COPD (chronic obstructive pulmonary disease) Current Visit: Yes Status: Acute Assessment and plan: On BiPAP No audible wheezing Scheduled Duonebs q4H while on BiPAP Resume home meds once off meds Qualifiers: COPD type: unspecified COPD Qualified Code(s): J44.9 - Chronic obstructive pulmonary disease, unspecified (9) DVT prophylaxis Current Visit: Yes Status: Acute Assessment and plan: On Heparin ggt - Time Spent With Patient Total time spent is greater than 50% in coordination of care (as documented) at patient's floor/unit and/or counseling patient: <Hu Zamora - Last Filed: 10/10/18 01:06> Date of Encounter: 10/09/18 Time of Encounter: 21:45 - Cardiovascular Cardiovascular ROS IM: dyspnea, dyspnea on exertion, edema, orthopnea, paroxysmal nocturnal dyspnea, no chest pain - Respiratory Respiratory: dyspnea, chest congestion, excessive phlegm production, no hemoptysis - Constitutional Vitals: Temp Pulse Resp BP Pulse Ox 101.6 F H 99 34 126/64 95 10/10/18 00:00 10/10/18 00:00 10/10/18 00:00 10/10/18 00:00 10/10/18 00:00 General appearance: Present: mild distress, A&O X 3, pleasant, answers questions appropriately - Head Head exam: Present: normal inspection - Eye Eye exam: Present: EOMI, PERRL. Absent: scleral icterus Pupils: Present: normal accommodation - ENT ENT exam: Present: mucous membranes dry, normal exam, normal oropharynx - Neck Neck exam general surgery: Present: full ROM, supple, trachea midline. Absent: tenderness, nuchal rigidity, thyromegaly - Respiratory Respiratory exam: Present: decreased breath sounds, rales (both bases), respiratory distress (mild), tachypnea. Absent: accessory muscle use, rhonchi, stridor, wheezes - Cardiovascular Cardiovascular exam: Present: distant heart sounds, irregular rhythm, +S1, +S2. Absent: diastolic murmur, systolic murmur - GI/Abdominal GI/Abdominal exam: Present: normal bowel sounds, soft. Absent: hepatomegaly, mass, rebound, splenomegaly, tenderness - Extremities Exam Extremities exam: Present: normal capillary refill, pedal edema, warm, radial pulses palpable and symmetrical. Absent: calf tenderness, joint swelling - Back Exam Back exam: Absent: CVA tenderness (L), CVA tenderness (R) - Neurological Exam Neurological exam: Present: alert, oriented X3, no focal deficits - Psychiatric Psychiatric exam: Present: normal affect, normal mood - Skin Skin exam: Present: dry, intact, warm Internal Med - H&P Results - Labs CBC & Chem 7: 10/09/18 22:18 10/09/18 22:18 Labs: Short CBC 10/09/18 Range/Units 22:18 WBC 15.7 H (4.3-11.1) K/mcL Hgb 7.0 L (12.9-16.9) g/dL Hct 23.0 L (37.5-50.1) % Plt Count 134 L (140-400) K/mcL Neutrophils # 13.8 H (1.6-8.9) K/mcL BMP 10/09/18 22:18 Sodium 136 Potassium 4.7 Chloride 101 Carbon Dioxide 24 BUN 19 Creatinine 1.56 H Glucose 117 H Calcium 8.2 L Cardiac Enzymes 10/09/18 Range/Units 22:18 Troponin I 30.22 H* (< 0.04) ng/mL Liver Function 10/09/18 Range/Units 22:18 Total Bilirubin 0.7 (0.3-1.0) mg/dL AST 66 H (13-39) Units/L ALT 9 (7-52) Units/L Alkaline Phosphatase 97 (34-104) Units/L Albumin 2.9 L (3.5-5.7) g/dL - ABG Interpretation ABG results: 10/09/18 22:28 VBG pH 7.37 VBG pCO2 44 VBG pO2 69 H VBG HCO3 25 - EKG Data -: EKG Interpreted by Myself - Impressions ITS Impressions Chest X-Ray 10/09/18 20:34 IMPRESSION: Bilateral mid and lower lung airspace disease and bilateral pleural effusions, greater on the right, likely edema. Pneumonia could also have this appearance. D/ / Rosita Walker Cha, MD / Rosita Walker Cha, MD Interpreting Provider: Rosita Walker Cha, MD - Diagnostic Studies Chest x-ray Status: image reviewed by me (CHF) - Time Spent With Patient Total time spent is greater than 50% in coordination of care (as documented) at patient's floor/unit and/or counseling patient: - Attending Attestation I discussed the patient [place], past medical history, review of systems, lab data, imaging data, exam findings, and limited [facility] records with Dr. Dominguez. I then saw and evaluated patient in the intensive care unit and discussed the case at length with patient, his , and his son. Patient had labored breathing and was tolerating BiPAP fairly well. I reviewed his labs and history from [facility] and discussed with his and son. We ordered stat labs and x-ray. His chest x-ray revealed CHF findings and his exam was consistent with that. Once lab results returned, he had troponin elevation in excess of 30. His troponin at [facility] earlier today was within normal limits roughly 11 hours ago. We then ordered stat EKG. I did not see any ST elevation on his EKG but he does have Q waves in the septal leads. He also has some ischemic changes anteriorly and laterally. We ordered stat echo, and I discussed this with Dr. Christianson. Dr. Christianson noted the patient had a depressed left ventricular ejection fraction of 40%, compared to 65% just a few months ago. Furthermore, he also has significant wall motion abnormality along the LAD region. He recommended urgent catheterization. I therefore called and discussed with Dr. Velasquez from inte entional cardiology. Dr. Velasquez agreed and is on his way with the cath team to proceed with left heart catheterization and possible balloon pump if necessary. Meanwhile, I reassessed him several times since initial presentation, and he was decompensating from respiratory standpoint. He had worsening respiratory distress, worsening orthopnea, and was exhibiting signs of respiratory fatigue. I discussed with patient and his and son that we should proceed with elective intubation rather than emergent intubation later in the evening. They were agreeable. As such, we intubated patient prior to my discussion with Dr. Velasquez. Please see Dr. Dominguez's detailed note for procedure details. At this time, patient is mechanically ventilated and sedated. He is maintained on heparin drip. We are transfusing PRBCs to maintain hemoglobin above 9. Interventional cardiology team to proceed with of catheterization and further intervention as necessary. I have updated patient's and son and they are in agreement with the plan thus far. Other than my comments above and documented exam findings, I agree with Dr. Dominguez's assessment and plan. Note: Total of 75 minutes critical care time thus far assessing, re-assessing patient, and coordinating care with cardiology.
[2018-10-09] MEDS: Heparin 25,000 UNIT/250 ML D5W 25,000 UNIT/250 ML IV.SOLN IVC SCH ×2 (21:28→23:11)
[2018-10-09] MEDS ORDERED: Perflutren Lipid Microsphere 1.3 ML in 0.9 % Sodium Chloride 8.7 ML IVP ONE (21:34)
[2018-10-09 22:31] LABS: Mean Corpuscular HGB Conc 30.4 g/dL (31.6-35.5); Mean Corpuscular Hemoglobin 28.5 pg (28.0-33.3); Mean Corpuscular Volume 93.5 fL (83.0-100.0); Mean Platelet Volume 10.3 fL (9.4-12.4); Platelet Count 134 K/mcL (140-400); Red Blood Count 2.46 M/mcL (4.19-5.50); Red Cell Distribution Width 15.6 % (11.5-14.5); White Blood Count 15.7 K/mcL (4.3-11.1)
[2018-10-09 22:32] LABS: VBG HCO3 25 mEq/L (21-27); VBG PCO2 44 mmHg (41-51); VBG PH 7.37 pH Units (7.32-7.42); VBG PO2 69 mmHg (25-50)
[2018-10-09 22:38] LABS: Heparin anti-factor XA UFH 0.26 IU/mL (0.30-0.70)
[2018-10-09 22:39] LABS: INR 1.4; Prothrombin Time 16.4 Seconds (9.4-12.1)
[2018-10-09 23:00] LABS: Lymphocytes # 1.9 K/mcL (0.6-4.6); Neutrophils # 13.8 K/mcL (1.6-8.9)
[2018-10-09] MEDS: Vancomycin Oral Soln 125 MG/2.5 ML UDC PO SCH (23:01)
[2018-10-09] MEDS: Nitroglycerin 1 INCH/GM PACKET TP ONE ×2 (23:09→23:30)
[2018-10-09 23:10] LABS: Albumin 2.9 g/dL (3.5-5.7); Albumin/Globulin Ratio 0.7 (1.1-2.2); Bilirubin,Total 0.7 mg/dL (0.3-1.0); Calcium 8.2 mg/dL (8.6-10.3); Globulin 4.3 g/dL (2.4-3.5); Phosphorous 2.8 mg/dL (2.7-4.5); Potassium 4.7 mEq/L (3.5-5.1); Thyroid Stimulating Hormone 3.796 mcIU/mL (0.340-5.600); Total Protein 7.2 g/dL (6.4-8.9); Troponin I 30.22 ng/mL (< 0.04)
[2018-10-09] MEDS: metroNIDAZOLE 500 MG TABLET PO SCH (23:12)
[2018-10-09] MEDS: Ipratropium/Albuterol Neb 3 ML IH SCH (23:14)
[2018-10-09] MEDS ORDERED: Nitroglycerin 1 INCH/GM PACKET ONE (23:25)
[2018-10-10] MEDS: Furosemide 240 MG in D5% in Water 96 ML IVC SCH (00:05)
[2018-10-10] MEDS: Insulin LISPRO 300 UNITS/3 ML VIAL SQ SCH ×4 (00:11→19:32)
--- NOTE | 2018-10-10 00:33 | Event Note ---
Date of Encounter: 10/10/18 Time of Encounter: 00:33 - Cardiology Event Note Limited echo shows severely reduced LVEF, dilated LV with SWMA in the LAD distribution. Covering hospitalist notified.
--- NOTE | 2018-10-10 00:43 | Event Note ---
<Fany Dominguez R - Last Filed: 10/10/18 00:53> Date of Encounter: 10/10/18 Time of Encounter: 00:41 Date: 10/10/2018 Time: 0035 Indication: Respiratory Distress Resident: Dr. Fany Dominguez Attending: Dr. Hu Zamora A time-out was completed verifying correct patient, procedure, site, positioning, and special equipment if applicable. The patient was placed in a flat position. Sedation was obtained using Versed 2.5mg, and additionally with Etomidate 20mg. The patient was easily ventilated using an ambu bag. The MAC 4 BLADE was used and inserted into the oropharynx at which time there was a Grade 1 view of the vocal cords. A 7.5-singaporean endotracheal tube was inserted and visualized going through the vocal cords. The stylette was removed. Colorimetric change was visualized on the CO2 meter. Breath sounds were heard in both lung avendaño equally. There were no gastric sounds present when auscultating the stomach. The endotracheal tube was placed at 20 cm, measured at the teeth. After placement of the tube there was an air leak heard and the patient began desaturating. The tube was advanced to 24cm but there was still an audible air leak. The 7.5 ETT was exchanged with a tube exchanger and an 8.0 ETT was placed and measured at 25cm at the lips. Dr. Zamora was present for the entire procedure. A chest x-ray was ordered to assess for pneumothorax and verify endotracheal tube placement. There is no visible pneumothorax and the tube is confirmed to be in the correct place by my interptretation of the chest x-ray. Estimated Blood Loss: 0 The patient tolerated the procedure well and there were no complications. <Hu Zamora - Last Filed: 10/10/18 01:09> Date of Encounter: 10/10/18 I was present and supervised intubation per Dr. Dominguez. Patient tolerated procedure well without difficulty, including the tube exchange. We confirmed ETT placement with CXR.
[2018-10-10 00:51] LABS: Bilirubin,Urine Moderate (Negative); Blood,Urine Trace (Negative); Clarity,Urine Cloudy (Clear); Color,Urine Dark Yellow (Yellow); Glucose,Urine (UA) Normal (Normal); Ketones,Urine Trace mg/dL (Negative); Leukocyte Esterase,Urine Negative (Negative); Nitrite,Urine Negative (Negative); Protein,Urine >=300 mg/dL (Neg-Trace); Specific Gravity,Urine 1.024 (1.010-1.025); Urobilinogen,Urine Normal (Normal)
[2018-10-10 00:53] LABS: Bacteria,Urine None Seen per hpf (None-Few); Squamous Epithelial Cell,Urine Many per lpf (None-Few)
[2018-10-10 01:06] LABS: Hyaline Casts,Urine Many per lpf (None-Few)
[2018-10-10] MEDS ORDERED: *HR* Midazolam HCl 2 MG/2 ML VIAL ONE (01:10)
[2018-10-10] MEDS ORDERED: *HR* FentaNYL (PF) 100 MCG/2 ML VIAL ONE (01:10)
[2018-10-10] MEDS ORDERED: Verapamil 5 MG/2 ML VIAL ONE (01:10)
[2018-10-10] MEDS ORDERED: Nitroglycerin 1,000 MCG/10 ML VIAL IV ONE (01:11)
[2018-10-10] MEDS ORDERED: *HR* Heparin 10,000 UNIT/10 ML VIAL ONE ×2 (01:11→02:27)
[2018-10-10] MEDS ORDERED: 0.9 % Sodium Chloride 1,000 ML ONE ×3 (01:11→09:07)
[2018-10-10] MEDS ORDERED: ISOVUE-370 200 ML INFUS..BTL ONE (01:11)
[2018-10-10] MEDS ORDERED: Heparin 1,000 UNITS/500 mL 500 ML ONE (01:11)
[2018-10-10] MEDS ORDERED: Artificial Tears SOLN 15 ML BOTTLE BOTH EYES PRN (01:12)
[2018-10-10] MEDS: FentaNYL (PF) 1,000 MCG in 0.9 % Sodium Chloride 80 ML IVC SCH ×2 (01:18→17:31)
--- NOTE | 2018-10-10 01:28 | Pre-Sedation Evaluation ---
Pre-sedation evaluation - Pre-sedation checklist Date of procedure: 10/10/18 Procedure: [facility] Recent Vitals: Last Vital Signs Temp 101.6 F H 10/10/18 00:00 Pulse 90 10/10/18 01:00 Resp 16 10/10/18 01:02 BP 119/56 10/10/18 01:02 Pulse Ox 96 10/10/18 01:02 H&P (including ROS) documented in medical record: Yes Previous reaction to sedatives/anesthetics: Unknown Dietary Status: No solid food in preceding 4 hrs and no liquid in preceding 2 hrs Dentition: No loose teeth or bridges ASA Classification *see protocol: CLASS V-Morbid complications, operation only hope of survival, [id number] to any of the above to indicate emergent Cardiac Registry (Cardio Only) - Functional Capacity Functional Capacity: Unknown - Clincal Frailty Scale Clinical Frailty Scale: Vulnerable
[2018-10-10] MEDS: Chlorhexidine Rinse 15 ML MOUTHWASH MM SCH ×3 (01:57→20:06)
[2018-10-10] MEDS ORDERED: Tirofiban 12.5 MG/250ML 12.5 MG/250 ML BAG ONE (02:26)
[2018-10-10] MEDS ORDERED: Isovue-300 200 mL Infus..BTL ONE (02:27)
[2018-10-10] MEDS ORDERED: 0.9 % Sodium Chloride 250 ML ONE (02:56)
--- NOTE | 2018-10-10 03:11 | Cardiology Consult Note ---
Date of Encounter: 10/10/18 Time of Encounter: 01:00 Assessment and Plan (1) Acute KS Current Visit: Yes Status: Acute History given to me as dyspnea followed by respiratory failure requiring intubation and troponin 30 with EF newly depressed at 20%. Urgent LHC due to patient decompensation with family agreeable. Total critical care time: 90 minutes Qualifiers: Involved coronary artery: unspecified coronary artery Qualified Code(s): I21.9 - Acute myocardial infarction, unspecified (2) Anemia of chronic disease Current Visit: No Status: Chronic stable, transfuse to hgb >8 with new acute systolic chf (3) GILES (acute kidney injury) Current Visit: No Status: Acute given presentation, will likely worsen with acute KS/new systolic CHF, CKD and anemia. will try to limit contrast as much as possible. Discussion w patient/family: The assessment and plan as outlined above was discussed with the patient and/or family members who expressed understanding and agreement. All questions were answered. Thank you for involving us in the care of your patient. Please call with any questions. History of Present Illness Consult date: 10/10/18 History of present illness: Mr. Sanford is a 63 year old male with history of CAD sp CABG, normal EF transferred from [facility] with history given to me by hospitalist educational coordinator overnight. Per hospitalist, presented with dyspnea and had respiratory compromise despite BIPAP requiring intubation. TTE read as new EF 20% with pos sible LAD distribution WMA. Troponin escalated to 30 and no other history was provided as patient intubated. There was concern for acute CHF and possible cardiogenic shock. Past Med Surg Social Fam HX - Past Medical History Medical history: asthma, CHF, coronary artery disease, diabetes, GERD, hyperlipidemia, hypertension, renal disease, thyroid disease, other Additional medical history: ckd 4 Psychiatric history: depression - Past Surgical History Surgical History: cholecystectomy, coronary bypass (CABG), sinus surgery Additional surgical history: CABG x3, BCC removed from L ear, heart catheterization, cataracts removed, eye surgery, - Social History Smoking Status: Former smoker Smokeless Tobacco Status: No Alcohol use: none Drug use: none - Family History Mother Adopted: Yes Living Status: Hx Family Endocrine Disorder: Yes (Diabetes) Father Living Status: Hx Family Cardiac Disorders: Yes (Coronary artery disease) Medications and Allergies Albuterol Sulfate [Proventil Inhaler] 2 puff IH Q4HR PRN 06/27/16 [History] Beclomethasone Diprop 80mcg [QVAR 80 mcg] 1 puff IH BID 06/27/16 [History] Cholecalciferol (D-3) [Vitamin D] 5,000 unit PO DAILY 06/27/16 [History] Ferrous Sulfate [Iron] 325 mg PO BID 06/27/16 [History] Simvastatin [Zocor] 40 mg PO HS 06/27/16 [History] amLODIPine [Norvasc] 10 mg PO DAILY 06/27/16 [History] Ergocalciferol (VITAMIN D2) [Drisdol (50,000 Unit)] 50,000 unit PO QWEEK 12/06/16 [Rx] Albuterol Neb [Proventil Neb] 2.5 mg IH TID PRN 06/18/18 [History] Bumetanide [Bumex] 1 mg PO DAILY 06/18/18 [History] Insulin LISPRO [Humalog Kwikpen U-200] 0 unit SQ AD 06/18/18 [History] Levothyroxine [Synthroid] 75 mcg PO 0630 06/18/18 [History] Montelukast [Singulair] 10 mg PO HS 06/18/18 [History] Sevelamer [Renvela] 800 mg PO TIDWM 06/18/18 [History] Sodium Bicarbonate 650 mg PO TID 06/18/18 [History] Vancomycin Oral Soln [Firvanq] 125 mg PO BID udc 07/05/18 [Rx] Vancomycin Oral Soln [Firvanq] 125 mg PO DAILY udc 07/05/18 [Rx] Vancomycin Oral Soln [Firvanq] 125 mg PO Q48H udc 07/05/18 [Rx] Vancomycin Oral Soln [Firvanq] 125 mg PO Q72H udc 07/05/18 [Rx] Vancomycin Oral Soln [Firvanq] 125 mg PO TID udc 07/05/18 [Rx] Allergy/AdvReac Type Severity Reaction Status Date / Time acetaminophen [From Percocet] Allergy Hives Verified 12/24/16 13:43 atorvastatin [From Lipitor] Allergy Hives Verified 12/24/16 13:43 azithromycin Allergy Hives Verified 12/24/16 13:43 [From Zithromax Z-Sharad] Cefaclor [From Ceclor] Allergy Hives Verified 12/24/16 13:43 cephalexin [From Keflex] Allergy Hives Verified 12/24/16 13:43 ciprofloxacin [From Cipro] Allergy Hives Verified 12/24/16 13:43 clarithromycin [From Biaxin] Allergy Hives Verified 12/24/16 13:43 clindamycin Allergy Hives Verified 12/24/16 13:43 metoprolol Allergy Hives Verified 12/24/16 13:43 moxifloxacin [From Avelox] Allergy Hives Verified 12/24/16 13:43 oxycodone [From Percocet] Allergy Hives Verified 12/24/16 13:43 prednisone Allergy Hives Verified 12/24/16 13:43 Streptomycin Allergy Hives Verified 12/24/16 13:43 sulfamethoxazole Allergy Hives Verified 12/24/16 13:43 [From Bactrim] trimethoprim [From Bactrim] Allergy Hives Verified 12/24/16 13:43 ROS unobtainable: due to endotracheal tube, due to mental status All Systems Review: The remainder of the systems were reviewed and are negative Physical Examination Vital Signs, Last 4 Hours Temp Pulse Resp BP Pulse Ox 10/10/18 01:02 16 119/56 96 10/10/18 01:00 90 20 119/56 96 10/10/18 00:45 88 10/10/18 00:00 101.6 F H 99 34 126/64 95 10/09/18 23:15 34 116/65 96 General: Other (intubated sedated) HEENT: Atraumatic, Mucus Membranes Moist Neck: No JVD, Normal carotid pulses Cardiac: Reg Rate and Rhythm Neuro: Other (intubated / sedated) Abdomen: Soft Skin: No rashes noted on visualized skin Musculoskeletal: No Chest Wall Tenderness Extremities: No Cyanosis Results 10/10/18 04:00 10/10/18 05:00 Lab Results 10/09/18 10/09/18 10/09/18 22:18 22:18 22:18 WBC 15.7 H Hgb 7.0 L Hct 23.0 L Plt Count 134 L INR Sodium 136 Potassium 4.7 Chloride 101 Carbon Dioxide 24 BUN 19 Creatinine 1.56 H Glucose 117 H Calcium 8.2 L Magnesium 2.0 Total Bilirubin 0.7 AST 66 H ALT 9 Alkaline Phosphatase 97 Troponin I 30.22 H* B-Natriuretic Peptide 868 H TSH 3.796 10/09/18 22:18 WBC Hgb Hct Plt Count INR 1.4 Sodium Potassium Chloride Carbon Dioxide BUN Creatinine Glucose Calcium Magnesium Total Bilirubin AST ALT Alkaline Phosphatase Troponin I B-Natriuretic Peptide TSH - EKG Interpretation EKG results cardiology: sinus rhythm Consult Discharge Plan - Plan Referrals: NONE,PCP [Primary Care Provider] -
[2018-10-10] MEDS ORDERED: Tirofiban 12.5 MG/250ML 12.5 MG/250 ML BAG IVC SCH (03:15)
--- NOTE | 2018-10-10 03:16 | Event Note ---
Date of Encounter: 10/10/18 Time of Encounter: 03:30 - Cardiology Event Note PCI SVG OM 95% EF 20%, not explained by SVG OM 95% stenosis or NSTEMI. MANCERA LAD patent.
--- NOTE | 2018-10-10 03:46 | Invasive Diagnostic Lab Proc ---
Name: Chris Sanford Date of Study: 10/10/2018 Date: 1955 Ht: 72.0in Medical Record#: [id number] Age: 63 Wt: 246.92lb Gender: Male BSA: 2.33 Order #: [id number] BMI: 33.44 Physicians Procedure Physician: Jeff Velasquez MD, FACC Referring MD: Referring MD: Staff Name Position Time In Augusta Whitaker RN Monitor 01:22 AM AndRashawn lomeli RN Lead Manufacturing Engineering Tech 01:22 AM Devi Andrews RT (R) Scrub 01:22 AM Indications Indication Non-Stemi Procedures Performed Procedure L HRT ART/GRFT ANGIO INJECT SUPRVLVAORTAGRAM PRQ REVASC BYP GRAFT 1 VSL Pre-Procedure Checklist Informed consent is complete signed and on chart. H&P is on chart. ID band is on and ID verified with patient. Patient NPO for procedure The procedure was described for the patient and questions were answered. Blood Pressure: 119/56 ECG is on chart. Plan of Care Patient will tolerate the procedure without complications. Adequate level of comfort will be maintained. Hemodynamics will remain stable Patient will recover from procedure without complications. Respiratory function will be maintained. Cardiac rhythm will remain stable. Patient temperature will be maintained. Patient and/or family have verbalized understanding of the procedure. Patient Education Intravenous Access Time IV Size Location DC'd Fluid/Drip Rate Units RN 01:21 AM 20g 1 /" Patent On Arrival Rt Antecubital Allergies Cephalosporin Azithromycin clarithromycin Penicillin Cefaclor Levofloxacin moxifloxacin sulfamethoxazole trimethoprim clindamycin oxycodone acetaminophen prednisone cephalexin Vital Signs Time BP (mmHg) HR (bpm) O2 Sat. RR (bpm) LOC 01:21 AM 119 / 56 90 96 % 01:53 AM 108 / 46 76 91 % 15 01:58 AM 95 / 48 78 93 % 18 02:03 AM 88 / 46 69 93 % 11 02:08 AM 88 / 47 78 94 % 28 02:13 AM 89 / 44 69 94 % 4 02:17 AM 89 / 47 71 93 % 14 02:23 AM 93 / 47 57 93 % 15 02:28 AM 97 / 50 59 94 % 44 02:33 AM 85 / 46 72 93 % 23 02:38 AM 97 / 50 81 91 % 18 02:43 AM 107 / 55 103 92 % 14 02:48 AM 110 / 51 109 94 % 12 02:53 AM 107 / 51 112 95 % 23 02:58 AM 108 / 55 110 94 % 19 03:03 AM 103 / 55 111 94 % 26 Procedural Medications Time Medication Dose Units Method Given By 01:44 AM versed 6 mg/hr Intravenous 01:44 AM fentanyl 75 mcg/hr Intravenous 01:45 AM Lasix 10 mg/hr Intravenous 01:57 AM Lidocaine 2% 19 ml Subcutaneous Jeff Velasquez MD, FACC 02:00 AM versed 4 mg/hr Intravenous Rashawn Jeffers RN 02:01 AM Fentanyl 50 mcg/hr Intravenous Rashawn Jeffers RN 02:21 AM Dopamine 10 mcg/min Intravenous Rashawn Jeffers RN 02:31 AM Heparin 2500 units Intravenous Rashawn Jeffers RN 02:36 AM Dopamine 15 mcg/min Intravenous Rashawn Jeffers RN 03:01 AM Aggrastat Bolus: 54 ml Intravenous Rashawn Jeffers RN 03:01 AM Aggrastat 12.5mg/250ml 19.5 ml/hr Intravenous Rashawn Jeffers RN 03:02 AM Plavix 600 mg OG Rashawn Jeffers RN ASA Classification: CLASS V- Morbid ompications, the operation is the only hope for survival (i.e. ruptured abd. aortic aneurysm) Corinne Score Preprocedure Postprocedure Activity Activity Circulation Circulation Consciousness Consciousness O2 Saturation O2 Saturation Respiratory Respiratory Total Score Total Score Contrast Agent: Isovue Diagnostic Contrast: 156 ml Total Contrast: 156 ml Fluoro Dose: 97 mGy Activated Clotting Time Time Seconds to Clot 02:31 AM 178 03:17 AM 232 Procedure Log Time Note Enter By 01:22 AM Augusta Whitaker RN Position: Monitor [facility]: [facility] [facility] AM Rashawn Jeffers RN Position: Lead Manufacturing Engineering Tech Time in: :[address] [facility] [address] [facility] 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 [facility] 01:[address] upon arrival Mechanical ventilator [facility] 01:44 AM Patient arrived at 01:44 with versed Intravenous drip @ 6 mg/hr tsoumm 01:45 AM Patient arrived at 01:44 with fentanyl Intravenous drip @ 75 mcg/hr tsoumm 01:45 AM Patient arrived at 01:45 with Lasix Intravenous drip @ 10 mg/hr oumm 01:45 AM Patient charges- Angio tray pack, Navilyst 3mm J, Pulse Oximetry and ACIST tubing and transducer mm:45 AM Physician arrived :45 mm:45 AM Meet and greet completed :45 AM Sign in performed according to hospital policy. Informed consent was obtained. mm 01:45 AM Procedure start 01:45 oumm 01:52 AM Vitals capture started with the following parameters, Patient=Adult, Interval=5 min, Initial Sgwvhugf=979 mmHg, Deflation Rate=3 mmHg, Cuff placed on Right Arm 01:52 AM Recorded ECG: HR=69 Condition=Condition 1 01:52 AM Recorded ECG: HR=79 Condition=Condition 1 01:53 AM HR=76 bpm, PNEV=799/46 mmhg, SpO2=91.0 %, Resp=15 B/min 01:53 AM Hair removed from procedure site in procedure lab using clippers. Bilateral groin prepped with Chloraprep by Rashawn Jeffers RN, then patient was draped. Skin intact. tsoummers 01:55 AM ASA Class CLASS V- Morbid ompications, the operation is the only hope for survival (i.e. ruptured abd. aortic aneurysm) tsoummers 01:56 AM Pressure channel 1 zeroed. 01:57 AM Time out was performed according to hospital policy. Conscious sedation and anesthesia was achieved (see medication log with in this report above) tsoummers :57 AM Time: 01:57 19 ml Lidocaine 2% to right groin Subcutaneous Given by Jeff Velasquez MD, [facility] tsoummers 01:58 AM HR=78 bpm, NIBP=95/48 mmhg, SpO2=93.0 %, Resp=18 B/min 01:58 AM Pressure channel 1 zeroed. 01:59 AM Pressure channel 1 zero failed. 01:59 AM Pressure channel 1 zero failed. 01:59 AM Pressure channel 1 zeroed. 01:59 AM Access obtained by percutaneous puncture. 6Fr 10cm Terumo Garwood sheath placed in right Femoral artery. [id number] tsoummers 02:00 AM 0.035 145cm Navilyst 3mmJ wire [id number] oumm 02:00 AM 5Fr FL 4 catheter inserted over the wire [facility] tsmm 02:00 AM wire removed tsoumm 02:01 AM Time: 02:00 versed 4 mg/hr Intravenous Given by Rashawn Jeffers RN [place] pump ouyvonne 02:01 AM Time: 02:01 Fentanyl 50 mcg/hr Intravenous Given by Rashawn Jeffers RN [place] pump tsoummyvonne 02:01 AM Recorded Pressure: Ao, HR=73, Condition=Condition 1 (Aorta) Ao 79/45/59 02:01 AM Left SANJUANITA to the LAD angio performed in multiple views. tsoummers 02:02 AM wire reinserted tsoumm 02:03 AM wire removed tsoumm 02:03 AM LCA angiography performed in multiple views. tsoummers 02:03 AM Recorded Pressure: Ao, HR=71, Condition=Condition 1 (Aorta) Ao 76/44/57 02:03 AM HR=69 bpm, NIBP=88/46 mmhg, SpO2=93.0 %, Resp=11 B/min 02:03 AM Lesion found in Proximal LMCA. Pre Stenosis: 99 Pre ANABEL Flow: tsoummers 02:04 AM Lesion found in Proximal LAD. Pre Stenosis: 100 Pre ANABEL Flow: tsoummers 02:04 AM Left Main Coronary Artery with 99% stenosis tsoummers 02:04 AM Proximal Left Anterior Descending Coronary Artery with 100% stenosis. If graft is supplying this territory, 0 % stenosis. tsoummers 02:04 AM Catheter removed oumm 02:04 AM 5Fr FR 4 catheter inserted over the wire [facility] tsoummers 02:04 AM Catheter crossed the aortic valve and was selectively placed in the left ventricle. Pressures recorded on pullback for left heart catheterization. tsoummers 02:04 AM Bolus angiogram of left Ventricle complete: 12 ml/sec for a total of 35 mls tsoummers 02:04 AM Recorded Pressure: LV, HR=74, Condition=Condition 1 (Left Ventricle) LV 94/11/21 02:05 AM Pressure channel 1 zeroed. 02:06 AM Recorded Pressure: LV, HR=73, Condition=Condition 1 (Left Ventricle) LV 84/3/14 02:06 AM Recorded Pressure: LV, Ao, HR=72, Condition=Condition 1 (Left Ventricle) LV 85/1/13, (Aorta) Ao 79/33/50 02:06 AM RCA angiography performed in multiple views. tsoummers 02:06 AM Recorded Pressure: Ao, HR=71, Condition=Condition 1 (Aorta) Ao 68/34/48 02:06 AM Lesion found in Proximal RCA. Pre Stenosis: 100 Pre ANABEL Flow: tsoummers 02:07 AM Right Coronary, Right Posterior Descending Arteries with Right Posterolateral and Acute Marginal branches with 100 % stenosis. If graft is supplying this area, 0 % stenosis tsoummers 02:08 AM HR=78 bpm, NIBP=88/47 mmhg, SpO2=94.0 %, Resp=28 B/min 02:09 AM Catheter removed 02:09 AM 5Fr Pigtail catheter inserted over the wire [facility] 02:10 AM Bolus angiogram of Aortic root complete: 12 ml/sec for a total of 35 mls oumm 02:11 AM Catheter removed 02:12 AM 5Fr LCB catheter inserted over the wire [id number] oumm 02:13 AM HR=69 bpm, NIBP=89/44 mmhg, SpO2=94.0 %, Resp=4 B/min 02:15 AM Catheter removed 02:15 AM 5Fr FR 4 catheter reinserted 02:15 AM Coronary Dominance: right tsoummers 02:16 AM Recorded Pressure: Ao, HR=72, Condition=Condition 1 (Aorta) Ao 68/38/51 02:16 AM Left SANJUANITA to the LAD angio performed in one view again. tsoumm 02:16 AM NIBP STAT measurement started. 02:17 AM HR=71 bpm, NIBP=89/47 mmhg, SpO2=93.0 %, Resp=14 B/min 02:19 AM Catheter removed 02:20 AM 5Fr AL1 catheter inserted over the wire [id number] 02:21 AM Time: 02:21 Dopamine 10 mcg/min Intravenous Given by Rashawn Jeffers RN [place] pump mm 02:22 AM Catheter removed 02:22 AM 5Fr AR1 catheter inserted over the wire [id number] oumm 02:23 AM HR=57 bpm, NIBP=93/47 mmhg, SpO2=93.0 %, Resp=15 B/min 02:24 AM SVG to the 1st OM angio performed in multiple views. 02:24 AM Recorded Pressure: Ao, HR=74, Condition=Condition 1 (Aorta) Ao 76/39/54 02:26 AM Catheter removed 02:27 AM Inflation device was opened. tsoumm 02:27 AM 6Fr AR1 Runway guide catheter was used to cannulate the PCI vessel successfully. reused? No tsoumm 02:28 AM HR=59 bpm, NIBP=97/50 mmhg, SpO2=94.0 %, Resp=44 B/min 02:29 AM Recorded Pressure: Ao, HR=75, Condition=Condition 1 (Aorta) Ao 89/36/55 02:31 AM Lesion found in 1st Marginal. Pre Stenosis: 90 Pre ANABEL Flow: 3: Complete and Brisk Flow/Perfusion tsoumm 02:31 AM At 02:31 the ACT was 178 seconds. tsoumm 02:31 AM Time: 02:31 Heparin 2500 units Intravenous Given by Rashawn Jeffers RN oumm 02:31 AM Filter wire inserted to target lesion. tsoumm 02:32 AM .014 PT Graphix 182cm guide wire across target lesion- successful. reused? No tsoumm 02:33 AM HR=72 bpm, NIBP=85/46 mmhg, SpO2=93.0 %, Resp=23 B/min 02:35 AM Filter wire removed intact. tsmm 02:36 AM Time: 02:36 Dopamine 15 mcg/min Intravenous Given by Rashawn Jeffers RN [place] pump tsoumm 02:37 AM 2.5 mm x 15 mm Emerge Monorail balloon across target lesion- unsuccessful. reused? No tsoumm 02:37 AM Balloon catheter removed intact. Not inflated tsoumm 02:38 AM 2.0 mm x 15 mm Emerge Monorail balloon across target lesion- successful. reused? No tsoummers 02:38 AM HR=81 bpm, NIBP=97/50 mmhg, SpO2=91.0 %, Resp=18 B/min 02:38 AM Recorded Pressure: Ao, HR=82, Condition=Condition 1 (Aorta) Ao 87/36/55 02:39 AM Balloon inflated @ 10 danny for 15 seconds tsoummers 02:40 AM Balloon inflated @ 10 danny for 16 seconds tsoummers 02:41 AM Recorded Pressure: Ao, HR=99, Condition=Condition 1 (Aorta) Ao 95/44/62 02:43 AM 3.0mm x 20mm Rebel [employer] bare metal stent across target lesion- unsuccessful Lot [id number] tsoummers 02:43 AM Stent removed intact. tsoummers 02:43 AM 2.5 x 15 mm Emerge balloon reinserted tsoummers 02:43 AM JJ=267 bpm, IFPI=996/55 mmhg, SpO2=92.0 %, Resp=14 B/min 02:44 AM Balloon inflated @ 8 danny for 15 seconds tsoummers 02:44 AM Balloon inflated @ 10 danny for 11 seconds tsoummers 02:45 AM Balloon catheter removed intact. tsoummers 02:45 AM Filter wire reinserted tsoummers 02:46 AM Recorded Pressure: Ao, YD=562, Condition=Condition 1 (Aorta) Ao 103/44/64 02:48 AM filter wire removed tsoummers 02:48 AM QP=669 bpm, LHPQ=431/51 mmhg, SpO2=94.0 %, Resp=12 B/min 02:50 AM .014 [place] 190cm guide wire across target lesion- successful. reused? No tsoummers 02:52 AM 3.0 x 20 mm Rebel BM stent reinserted tsoummers 02:53 AM Stent removed intact. Not deployed tsoummers 02:53 AM XT=536 bpm, CFUP=825/51 mmhg, SpO2=95.0 %, Resp=23 B/min 02:53 AM 2.75 mm x 15mm NC Trek Rx balloon across target lesion- successful. reused? No tsoummers 02:54 AM Balloon inflated @ 16 danny for 13 seconds tsoummers 02:55 AM Balloon inflated @ 16 danny for 9 seconds tsoummers 02:56 AM Balloon catheter removed intact. tsoummers 02:56 AM 3.0 x 20 mm Rebel BM stent reinserted tsoummers 02:58 AM Stent deployed @ 12 danny for [address] [facility] 02:58 AM HK=610 bpm, SZVY=781/55 mmhg, SpO2=94.0 %, Resp=19 B/min 02:59 AM Stent delivery system removed intact. 02:59 AM Recorded Pressure: Ao, EZ=747, Condition=Condition 1 (Aorta) Ao 92/46/64 03:00 AM both Guide wires removed intact. 03:00 AM Guide catheter removed intact. tsmm 03:01 AM Time: 03:01 Aggrastat Bolus: 54 ml Intravenous Given by Rashawn Jeffers RN [place] pump [facility] 03:01 AM Time: 03:01 Aggrastat 12.5mg/250ml 19.5 ml/hr Intravenous Given by Rashawn Jeffers RN [place] pump [facility] 03:02 AM Procedure completed at 03:02 10/10/2018[facility] 03:03 AM AB=961 bpm, ZDEN=550/55 mmhg, SpO2=94.0 %, Resp=26 B/min 03:03 AM Time: 03:02 Plavix 600 mg OG Given by Rashawn Jeffers RN [facility] 03:09 AM Did you address ANABEL flow and Dominance? YesCoronary Dominance: right [facility] 03:11 AM Sign out completed: Radiation Dose 831.72 mGy, 96.9 Gy/cm2 Fluoro Time: 24.7 Isovue 370 - 200ml contrast 156 ml given by Jeff Velasquez MD, FACC. Complications: None. 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 Sedation minutes 85. Cardiac Rehab Consult needed: Yes. Confirmed administered medications: Yes [facility] 03:11 AM Isovue 370 - 200ml,1 Bottle(s) used. [facility] 03:11 AM Sheath left in place to be pulled on floor/holding area tsmm 03:11 AM Estimated Blood Loss: less than 20cc tsoummers 03:11 AM Post ECG Atrial Flutter tsoummers 03:11 AM Post Blood Pressure 108/53 [facility] 03:12 AM Learning barriers :Intubated [facility] 03:12 AM Site status No bleeding/ No Hematoma - Rt Groin as reported by Devi Andrews RT (R) at 03:12 [email or web address] 03:12 AM Opsite applied tsoummers 03:12 AM Report given to Zoe OLIVERA Pt taken to ICU Room #8. 03:12 tsoummers 03:12 AM Plavix, Effient or Brilinta given Yes tsoummers 03:12 AM Delay to floor No tsoummers 03:12 AM Family placed in consult room. tsoummers 03:18 AM At 03:17 the ACT was 232 seconds. tsoummers 03:19 AM Patient out of room: 03:19 tsoummyvonne Complications Complication None Hemodynamics Pressures Site Systolic/A Wave Diastolic/V Wave Mean AO 79 45 59 AO 76 44 57 LV 94 11 21 LV 84 3 14 LV 85 1 13 AO 79 33 50 AO 68 34 48 AO 68 38 51 AO 76 39 54 AO 89 36 55 AO 87 36 55 AO 95 44 62 AO 103 44 64 AO 92 46 64 Post Procedure Information Blood Pressure: 108/53 mmHg Rhythm: Atrial Flutter Post procedural instructions were given Site Checks Time Location Status Staff Sheath In? Note 03:12 AM Rt Groin No bleeding/ No Hematoma Devi Andrews RT (R) Pulses Updated by Augusta Whitaker RN on 10/10/2018 3:25:01 AM electronically signed on 10/10/2018 3:33:38 AM with status of Final
[2018-10-10] MEDS: Ipratropium/Albuterol Neb 3 ML IH SCH ×5 (04:01→19:46)
[2018-10-10 04:41] LABS: ABG Base Excess -1 mEq/L (-2 to 3); ABG HCO3 23 mEq/L (21-27); ABG Oxygen Saturation 87 % (95-98); ABG PCO2 37 mmHg (35-45); ABG PO2 52 mmHg (85-104); ABG TCO2 24 mEq/L (20-26); Blood Gas Modality ASSIST CONTROL; Blood Gas PEEP 5 cm H2O; Blood Gas VT 500 cc
[2018-10-10] MEDS: Heparin 25,000 UNIT/250 ML D5W 25,000 UNIT/250 ML IV.SOLN IVC SCH (05:18)
[2018-10-10] MEDS: Artificial Tears SOLN 15 ML BOTTLE BOTH EYES SCH ×5 (05:30→20:07)
[2018-10-10] MEDS: Pantoprazole 40 MG VIAL IVP SCH (05:30)
[2018-10-10 05:31] LABS: Calcium 7.7 mg/dL (8.6-10.3); Magnesium 1.9 mg/dL (1.6-2.6); Phosphorous 3.4 mg/dL (2.7-4.5); Potassium 4.6 mEq/L (3.5-5.1)
[2018-10-10] MEDS ORDERED: Calcium Gluconate 2,000 MG in 0.9 % Sodium Chloride 100 ML IVPB ONE (05:49)
[2018-10-10] MEDS ORDERED: Potassium Phosphate 44 MEQ in 0.9 % Sodium Chloride 250 ML IVPB PRN (05:55)
[2018-10-10 07:10] LABS: Basophils % 0.2 %; Hematocrit 23.2 % (37.5-50.1); Hemoglobin 7.3 g/dL (12.9-16.9); Immature Granulocytes % 1.2 % (0-4); Lymphocytes # 0.6 K/mcL (0.6-4.6); Lymphocytes % 5.2 %; Mean Corpuscular HGB Conc 31.5 g/dL (31.6-35.5); Mean Corpuscular Hemoglobin 28.9 pg (28.0-33.3); Mean Corpuscular Volume 91.7 fL (83.0-100.0); Mean Platelet Volume 9.7 fL (9.4-12.4); Monocytes # 0.6 K/mcL (0.0-1.3); Monocytes % 5.1 %; Neutrophils # 9.6 K/mcL (1.6-8.9); Platelet Count 111 K/mcL (140-400); Red Blood Count 2.53 M/mcL (4.19-5.50); Red Cell Distribution Width 15.4 % (11.5-14.5); Segmented Neutrophils % 88.3 %; White Blood Count 10.9 K/mcL (4.3-11.1)
[2018-10-10 07:23] LABS: INR 1.6; Prothrombin Time 18.6 Seconds (9.4-12.1)
[2018-10-10] MEDS: metroNIDAZOLE 500 MG TABLET PO SCH (08:27)
[2018-10-10] MEDS: Vancomycin Oral Soln 125 MG/2.5 ML UDC PO SCH ×4 (08:28→20:30)
[2018-10-10] MEDS ORDERED: Cholecalciferol (D-3) 1,000 UNIT (25MCG) TABLET PO SCH (09:00)
[2018-10-10] MEDS ORDERED: levoFLOXacin 500 MG/100 ML 500 MG/100 ML BAG IVPB SCH (09:00)
[2018-10-10] MEDS ORDERED: amLODIPine 5 MG TABLET PO SCH (09:00)
[2018-10-10] MEDS ORDERED: 0.9 % Sodium Chloride 1,000 ML IVC ONE ×2 (09:05→09:09)
--- NOTE | 2018-10-10 09:20 | Pulmonology Consult Note ---
<Adelaide Salgado - Last Filed: 10/10/18 16:00> Date of Encounter: 10/10/18 Time of Encounter: 09:20 Assessment and Plan (1) Acute [place] Current Visit: Yes Status: Acute * Patient found to have significant elevation in his troponin with troponin less than upper limit of normal at [facility] and upon arrival to [place] was found to have troponin of 30.22 and repeat 30.47 * Echocardiogram limited was obtained which shows EF of 25% which is a signi ficant drop from previous in 05/30/18 which had a EF of 60-65% * The patient does have a long history of cardiac disease and has undergone CABG prior * Patient underwent catheterization overnight with Dr. Velasquez and a bare metal stent was placed in the saphenous venous graft OM1 * Cardiology recommends starting heparin but will hold off until the femoral sheath is pulled and we are able to obtain central venous access given he continues to require dopamine Qualifiers: Involved coronary artery: unspecified coronary artery Qualified Code(s): I21.9 - Acute myocardial infarction, unspecified (2) C. difficile diarrhea Current Visit: Yes Status: Suspected * Per family this started as an outpatient. * At this time there is been no fecal output per nursing staff * Will continue with oral Flagyl and vancomycin via OG * We will send stool studies when available * Will obtain CT abdomen/pelvis with oral contrast to evaluate for ischemic colitis versus infectious colitis (3) Acute exacerbation of CHF (congestive heart failure) Current Visit: Yes Status: Acute * Patient had acute decompensation of his heart failure likely secondary to subacute versus acute myocardial infarction * EF on limited echo was 25%, of a significant decrease from May 2018 when it was 60-65% * Patient was initiated on Lasix drip but given significant drop in ejection fraction will try to optimize preload and afterload with continued use of dopamine infusion, hold Lasix drip, and give IV fluids * Will continue to monitor pulmonary status and manage as is necessary but he does remain mechanically ventilated * Once blood pressure stabilizes may be able to resume diuretics to improve pulmonary edema Qualifiers: Heart failure type: diastolic Qualified Code(s): I50.33 - Acute on chronic diastolic (congestive) heart failure (4) Acute on chronic blood loss anemia Current Visit: Yes Status: Acute * Does appear to have chronic anemia at baseline, appears to have hemoglobin of approximately 8-9 * The patient was transfused overnight given anemia down to hemoglobin of 7. * Will check stool guaiac for possible occult blood loss * Will continue to monitor hemoglobin (5) Allergy to multiple antibiotics Current Visit: Yes Status: Acute * Antibiotic selection made in conjunction with pharmacy, we will place on cefepime for pulmonary coverage * Infectious disease will consult and appreciate their recommendations * Continues on Flagyl and vancomycin for C. difficile (6) Chronic venous hypertension w/ulcer and inflammation involv both sides Current Visit: Yes Status: Chronic * Infectious disease and wound care following, right lower extremity has area dressed and appears dry * Left BKA (7) CKD (chronic kidney disease) stage 4, GFR 15-29 ml/min Current Visit: Yes Status: Acute * Per history, today has increased in creatinine from 1.56 up to 1.64, we will continue to monitor. (8) COPD (chronic obstructive pulmonary disease) Current Visit: Yes Status: Acute * Will continue with bronchodilators with every 4 DuoNeb's Qualifiers: COPD type: unspecified COPD Qualified Code(s): J44.9 - Chronic obstructive pulmonary disease, unspecified (9) Hypertension Current Visit: Yes Status: Chronic * Will hold anti-hypertensives given hypotension Qualifiers: Hypertension type: essential hypertension Qualified Code(s): I10 - Essential (primary) hypertension (10) DVT prophylaxis Current Visit: Yes Status: Acute * Given recent anemia we will hold off on resuming heparin Past Med Surg Social Fam HX - Past Medical History Medical history: asthma, CHF, coronary artery disease, diabetes, GERD, hyperlipidemia, hypertension, renal disease, thyroid disease, other Additional medical history: ckd 4 Psychiatric history: depression - Past Surgical History Surgical History: cholecystectomy, coronary bypass (CABG), sinus surgery Additional surgical history: CABG x3, BCC removed from L ear, heart cat heterization, cataracts removed, eye surgery, - Social History Smoking Status: Former smoker Smokeless Tobacco Status: No Alcohol use: none Drug use: none - Family History Mother Adopted: Yes Living Status: Hx Family Endocrine Disorder: Yes (Diabetes) Father Living Status: Hx Family Cardiac Disorders: Yes (Coronary artery disease) Medications and Allergies Albuterol Sulfate [Proventil Inhaler] 2 puff IH Q4HR PRN 06/27/16 [History] Beclomethasone Diprop 80mcg [QVAR 80 mcg] 1 puff IH BID 06/27/16 [History] Cholecalciferol (D-3) [Vitamin D] 5,000 unit PO DAILY 06/27/16 [History] Ferrous Sulfate [Iron] 325 mg PO BID 06/27/16 [History] Simvastatin [Zocor] 40 mg PO HS 06/27/16 [History] amLODIPine [Norvasc] 10 mg PO DAILY 06/27/16 [History] Ergocalciferol (VITAMIN D2) [Drisdol (50,000 Unit)] 50,000 unit PO QWEEK 12/06/16 [Rx] Albuterol Neb [Proventil Neb] 2.5 mg IH TID PRN 06/18/18 [History] Bumetanide [Bumex] 1 mg PO DAILY 06/18/18 [History] Insulin LISPRO [Humalog Kwikpen U-200] 0 unit SQ AD 06/18/18 [History] Levothyroxine [Synthroid] 75 mcg PO 0630 06/18/18 [History] Montelukast [Singulair] 10 mg PO HS 06/18/18 [History] Sevelamer [Renvela] 800 mg PO TIDWM 06/18/18 [History] Sodium Bicarbonate 650 mg PO TID 06/18/18 [History] Vancomycin Oral Soln [Firvanq] 125 mg PO BID udc 07/05/18 [Rx] Vancomycin Oral Soln [Firvanq] 125 mg PO DAILY udc 07/05/18 [Rx] Vancomycin Oral Soln [Firvanq] 125 mg PO Q48H udc 07/05/18 [Rx] Vancomycin Oral Soln [Firvanq] 125 mg PO Q72H udc 07/05/18 [Rx] Vancomycin Oral Soln [Firvanq] 125 mg PO TID udc 07/05/18 [Rx] Allergy/AdvReac Type Severity Reaction Status Date / Time acetaminophen [From Percocet] Allergy Hives Verified 12/24/16 13:43 atorvastatin [From Lipitor] Allergy Hives Verified 12/24/16 13:43 azithromycin Allergy Hives Verified 12/24/16 13:43 [From Zithromax Z-Sharad] Cefaclor [From Ceclor] Allergy Hives Verified 12/24/16 13:43 cephalexin [From Keflex] Allergy Hives Verified 12/24/16 13:43 ciprofloxacin [From Cipro] Allergy Hives Verified 12/24/16 13:43 clarithromycin [From Biaxin] Allergy Hives Verified 12/24/16 13:43 clindamycin Allergy Hives Verified 12/24/16 13:43 metoprolol Allergy Hives Verified 12/24/16 13:43 moxifloxacin [From Avelox] Allergy Hives Verified 12/24/16 13:43 oxycodone [From Percocet] Allergy Hives Verified 12/24/16 13:43 prednisone Allergy Hives Verified 12/24/16 13:43 Streptomycin Allergy Hives Verified 12/24/16 13:43 sulfamethoxazole Allergy Hives Verified 12/24/16 13:43 [From Bactrim] trimethoprim [From Bactrim] Allergy Hives Verified 12/24/16 13:43 All Systems: The remainder of the systems were reviewed and are negative Physical Examination Vital Signs: Vital Signs, Last 4 Hours Temp Pulse Pulse Resp BP Pulse Ox 10/10/18 08:00 61 16 94/53 99 10/10/18 07:40 98.3 F 10/10/18 07:22 21 93/55 97 10/10/18 07:00 63 63 14 93/54 99 10/10/18 06:25 98.4 F 67 15 104/57 97 10/10/18 06:12 74 74 16 101/59 96 10/10/18 06:00 74 16 101/59 97 10/10/18 05:30 72 72 16 102/55 96 General appearance: comatose Eyes: nonicteric ENT: oropharynx moist Effort: normal (on mechanical ventilation) Auscultation: bilateral: rhonchi Cardiovascular: regular rate and rhythm Gastrointestinal: normoactive bowel sounds, non-distended Extremities: no cyanosis, other (left BKA) Musculoskeletal: other unable to assess due to mental status Ventilator Settings Ventilator Settings: Ventilator Settings, Last 8 Hours Ventilator Tidal Volume 500 Setting Ventilator Tidal Volume 500 Setting Ventilator Tidal Volume 500 Setting Ventilator Tidal Volume 500 Setting Ventilator Tidal Volume 500 Setting Ventilator Tidal Volume 500 Setting Ventilator Tidal Volume 500 Setting Ventilator Tidal Volume 500 Setting Ventilator Tidal Volume 500 Setting Ventilator Respiratory Rate 14 Setting Ventilator Respiratory Rate 14 Setting Ventilator Respiratory Rate 14 Setting Ventilator Respiratory Rate 14 Setting Ventilator Respiratory Rate 14 Setting Ventilator Respiratory Rate 14 Setting Ventilator Respiratory Rate 14 Setting Ventilator Respiratory Rate 14 Setting Ventilator Respiratory Rate 14 Setting Actual Respiratory Rate 14 Actual Respiratory Rate 14 Actual Respiratory Rate 14 Actual Respiratory Rate 16 Actual Respiratory Rate 16 Actual Respiratory Rate 17 Actual Respiratory Rate 23 Actual Respiratory Rate 20 Positive End Expiratory 8 Pressure Positive End Expiratory 5 Pressure Positive End Expiratory 8 Pressure Positive End Expiratory 5 Pressure Positive End Expiratory 5 Pressure Positive End Expiratory 5 Pressure Positive End Expiratory 5 Pressure Positive End Expiratory 5 Pressure Positive End Expiratory 5 Pressure Peak Inspiratory Airway 30 Pressure Peak Inspiratory Airway 33 Pressure Peak Inspiratory Airway 30 Pressure Peak Inspiratory Airway 30 Pressure Peak Inspiratory Airway 30 Pressure Peak Inspiratory Airway 31 Pressure Peak Inspiratory Airway 31 Pressure Peak Inspiratory Airway 31 Pressure Results - Laboratory Findings CBC and BMP: 10/10/18 04:00 10/10/18 05:00 ABG ABG pH 7.40 pH Units (7.32-7.45) 10/10/18 04:35 ABG pCO2 37 mmHg (35-45) 10/10/18 04:35 ABG pO2 52 mmHg (85-104) L 10/10/18 04:35 ABG O2 Saturation 87 % (95-98) L 10/10/18 04:35 PT/INR, D-dimer PT 18.6 Seconds (9.4-12.1) H 10/10/18 07:00 Abnormal lab findings: Abnormal lab results WBC 15.7 K/mcL (4.3-11.1) H 10/09/18 22:18 RBC 2.53 M/mcL (4.19-5.50) L 10/10/18 04:00 Hgb 7.3 g/dL (12.9-16.9) L 10/10/18 04:00 Hct 23.2 % (37.5-50.1) L 10/10/18 04:00 MCHC 31.5 g/dL (31.6-35.5) L 10/10/18 04:00 RDW 15.4 % (11.5-14.5) H 10/10/18 04:00 Plt Count 111 K/mcL (140-400) L 10/10/18 04:00 Band Neutrophils % 70.0 % (0-4) H 10/09/18 22:18 Neutrophils # 9.6 K/mcL (1.6-8.9) H 10/10/18 04:00 PT 18.6 Seconds (9.4-12.1) H 10/10/18 07:00 Heparin Anti-Xa, Unfract 0.26 IU/mL (0.30-0.70) L 10/09/18 22:18 ABG pO2 52 mmHg (85-104) L 10/10/18 04:35 ABG O2 Saturation 87 % (95-98) L 10/10/18 04:35 VBG pO2 69 mmHg (25-50) H 10/09/18 22:28 Sodium 133 mEq/L (136-145) L 10/10/18 05:00 Carbon Dioxide 22 mEq/L (23-29) L 10/10/18 05:00 Creatinine 1.64 mg/dL (0.70-1.30) H 10/10/18 05:00 Est GFR ( Amer) 52 (> 60) L 10/10/18 05:00 Est GFR (Non-Af Amer) 43 (> 60) L 10/10/18 05:00 Glucose 189 mg/dL (70-105) H 10/10/18 05:00 POC Glucose 137 mg/dL (70-99) H 10/10/18 00:11 Calcium 7.7 mg/dL (8.6-10.3) L 10/10/18 05:00 AST 66 Units/L (13-39) H 10/09/18 22:18 Troponin I 30.47 ng/mL (< 0.04) H* 10/10/18 05:00 B-Natriuretic Peptide 868 pg/mL (Less than 100) H 10/09/18 22:18 Albumin 2.9 g/dL (3.5-5.7) L 10/09/18 22:18 Globulin 4.3 g/dL (2.4-3.5) H 10/09/18 22:18 Albumin/Globulin Ratio 0.7 (1.1-2.2) L 10/09/18 22:18 Procalcitonin 53.10 ng/mL (0.00-0.15) H 10/10/18 05:00 Urine Clarity Cloudy (Clear) A 10/10/18 00:42 Urine Protein >=300 mg/dL (Neg-Trace) H 10/10/18 00:42 Urine Ketones Trace mg/dL (Negative) H 10/10/18 00:42 Urine Blood Trace (Negative) H 10/10/18 00:42 Urine Bilirubin Moderate (Negative) H 10/10/18 00:42 Urine Microscopic RBC 3-5 per hpf (0-3) H 10/10/18 00:42 Urine Microscopic WBC 5-15 per hpf (0-3) H 10/10/18 00:42 Ur Squamous Epith Cells Many per lpf (None-Few) H 10/10/18 00:42 Hyaline Casts Many per lpf (None-Few) H 10/10/18 00:42 Crossmatch See Detail 10/09/18 22:18 - Microbiology Findings Microbiology Findings: Microbiology, Last 48 Hours 10/09/18 22:59 Nasal Screen MRSA/MSSA - Preliminary Nose Culture is incubating. 10/09/18 22:18 Blood Culture - Preliminary Peripheral Venipuncture Culture is incubating and being continuously monitored for growth. Final report to follow. 10/09/18 22:18 Blood Culture - Preliminary Peripheral Venipuncture Culture is incubating and being continuously monitored for growth. Final report to follow. - Clinical Findings Intake & Output: Intake & Output 10/09/18 10/10/18 10/10/18 23:59 07:59 15:59 Intake Total 731.4 / 791.4 60 / 791.4 Output Total 375 / 375 Balance 356.4 / 416.4 60 / 416.4 Weight 112.1 kg Consult Discharge Plan - Plan Referrals: NONE,PCP [Primary Care Provider] - <Maria Elena Becerra - Last Filed: 10/10/18 17:30> Date of Encounter: 10/10/18 All Systems: The remainder of the systems were reviewed and are negative Physical Examination Vital Signs: Vital Signs, Last 4 Hours Temp Pulse Resp BP Pulse Ox 10/10/18 17:00 82 20 107/52 98 10/10/18 16:00 70 18 96/49 100 10/10/18 15:35 97.8 F 84 17 99/52 100 10/10/18 15:20 97.8 F 87 18 91/52 100 10/10/18 15:11 16 105/55 99 10/10/18 15:10 97.5 F L 10/10/18 15:00 89 16 105/55 100 10/10/18 14:00 61 16 96/51 100 10/10/18 13:23 18 92/47 99 Ventilator Settings Ventilator Settings: Ventilator Settings, Last 8 Hours Ventilator Tidal Volume 500 Setting Ventilator Tidal Volume 500 Setting Ventilator Tidal Volume 450 Setting Ventilator Tidal Volume 500 Setting Ventilator Tidal Volume 500 Setting Ventilator Tidal Volume 450 Setting Ventilator Tidal Volume 500 Setting Ventilator Tidal Volume 450 Setting Ventilator Tidal Volume 450 Setting Ventilator Tidal Volume 450 Setting Ventilator Tidal Volume 450 Setting Ventilator Tidal Volume 450 Setting Ventilator Respiratory Rate 16 Setting Ventilator Respiratory Rate 16 Setting Ventilator Respiratory Rate 16 Setting Ventilator Respiratory Rate 16 Setting Ventilator Respiratory Rate 16 Setting Ventilator Respiratory Rate 16 Setting Ventilator Respiratory Rate 16 Setting Ventilator Respiratory Rate 16 Setting Ventilator Respiratory Rate 16 Setting Ventilator Respiratory Rate 16 Setting Ventilator Respiratory Rate 16 Setting Ventilator Respiratory Rate 16 Setting Actual Respiratory Rate 18 Actual Respiratory Rate 18 Actual Respiratory Rate 16 Actual Respiratory Rate 17 Actual Respiratory Rate 17 Actual Respiratory Rate 17 Actual Respiratory Rate 17 Actual Respiratory Rate 18 Actual Respiratory Rate 18 Actual Respiratory Rate 18 Actual Respiratory Rate 16 Actual Respiratory Rate 20 Positive End Expiratory 8 Pressure Positive End Expiratory 8 Pressure Positive End Expiratory 8 Pressure Positive End Expiratory 8 Pressure Positive End Expiratory 8 Pressure Positive End Expiratory 8 Pressure Positive End Expiratory 8 Pressure Positive End Expiratory 8 Pressure Positive End Expiratory 8 Pressure Positive End Expiratory 8 Pressure Positive End Expiratory 8 Pressure Positive End Expiratory 8 Pressure Peak Inspiratory Airway 30 Pressure Peak Inspiratory Airway 30 Pressure Peak Inspiratory Airway 28 Pressure Peak Inspiratory Airway 30 Pressure Peak Inspiratory Airway 30 Pressure Peak Inspiratory Airway 31 Pressure Peak Inspiratory Airway 30 Pressure Peak Inspiratory Airway 30 Pressure Peak Inspiratory Airway 30 Pressure Peak Inspiratory Airway 32 Pressure Peak Inspiratory Airway 30 Pressure Peak Inspiratory Airway 29 Pressure Results - Laboratory Findings CBC and BMP: 10/10/18 04:00 10/10/18 05:00 ABG ABG pH 7.40 pH Units (7.32-7.45) 10/10/18 04:35 ABG pCO2 37 mmHg (35-45) 10/10/18 04:35 ABG pO2 52 mmHg (85-104) L 10/10/18 04:35 ABG O2 Saturation 87 % (95-98) L 10/10/18 04:35 PT/INR, D-dimer PT 18.6 Seconds (9.4-12.1) H 10/10/18 07:00 Abnormal lab findings: Abnormal lab results WBC 15.7 K/mcL (4.3-11.1) H 10/09/18 22:18 RBC 2.53 M/mcL (4.19-5.50) L 10/10/18 04:00 Hgb 7.3 g/dL (12.9-16.9) L 10/10/18 04:00 Hct 23.2 % (37.5-50.1) L 10/10/18 04:00 MCHC 31.5 g/dL (31.6-35.5) L 10/10/18 04:00 RDW 15.4 % (11.5-14.5) H 10/10/18 04:00 Plt Count 111 K/mcL (140-400) L 10/10/18 04:00 Band Neutrophils % 70.0 % (0-4) H 10/09/18 22:18 Neutrophils # 9.6 K/mcL (1.6-8.9) H 10/10/18 04:00 PT 18.6 Seconds (9.4-12.1) H 10/10/18 07:00 Heparin Anti-Xa, Unfract 0.26 IU/mL (0.30-0.70) L 10/09/18 22:18 ABG pO2 52 mmHg (85-104) L 10/10/18 04:35 ABG O2 Saturation 87 % (95-98) L 10/10/18 04:35 VBG pO2 69 mmHg (25-50) H 10/09/18 22:28 Sodium 133 mEq/L (136-145) L 10/10/18 05:00 Carbon Dioxide 22 mEq/L (23-29) L 10/10/18 05:00 Creatinine 1.64 mg/dL (0.70-1.30) H 10/10/18 05:00 Est GFR ( Amer) 52 (> 60) L 10/10/18 05:00 Est GFR (Non-Af Amer) 43 (> 60) L 10/10/18 05:00 Glucose 189 mg/dL (70-105) H 10/10/18 05:00 POC Glucose 137 mg/dL (70-99) H 10/10/18 00:11 Calcium 7.7 mg/dL (8.6-10.3) L 10/10/18 05:00 AST 66 Units/L (13-39) H 10/09/18 22:18 Troponin I 31.20 ng/mL (< 0.04) H* 10/10/18 12:00 B-Natriuretic Peptide 868 pg/mL (Less than 100) H 10/09/18 22:18 Albumin 2.9 g/dL (3.5-5.7) L 10/09/18 22:18 Globulin 4.3 g/dL (2.4-3.5) H 10/09/18 22:18 Albumin/Globulin Ratio 0.7 (1.1-2.2) L 10/09/18 22:18 Procalcitonin 53.10 ng/mL (0.00-0.15) H 10/10/18 05:00 Urine Clarity Cloudy (Clear) A 10/10/18 00:42 Urine Protein >=300 mg/dL (Neg-Trace) H 10/10/18 00:42 Urine Ketones Trace mg/dL (Negative) H 10/10/18 00:42 Urine Blood Trace (Negative) H 10/10/18 00:42 Urine Bilirubin Moderate (Negative) H 10/10/18 00:42 Urine Microscopic RBC 3-5 per hpf (0-3) H 10/10/18 00:42 Urine Microscopic WBC 5-15 per hpf (0-3) H 10/10/18 00:42 Ur Squamous Epith Cells Many per lpf (None-Few) H 10/10/18 00:42 Hyaline Casts Many per lpf (None-Few) H 10/10/18 00:42 Nasal Screen MRSA (PCR) Positive (Negative) A 10/09/18 22:59 Crossmatch See Detail 10/09/18 22:18 - Microbiology Findings Microbiology Findings: Microbiology, Last 48 Hours 10/09/18 22:59 Nasal Screen MRSA/MSSA - Final Nose 10/09/18 22:18 Blood Culture - Preliminary Peripheral Venipuncture Culture is incubating and being continuously monitored for growth. Final report to follow. 10/09/18 22:18 Blood Culture - Preliminary Peripheral Venipuncture Culture is incubating and being continuously monitored for growth. Final report to follow. - Clinical Findings Intake & Output: Intake & Output 10/10/18 10/10/18 10/10/18 07:59 15:59 23:59 Intake Total 851.4 / 1020.7 169.3 / 1020.7 Output Total 235 / 335 100 / 335 Balance 616.4 / 685.7 69.3 / 685.7 - Attending Attestation I saw and evaluated this patient and my medical decision-making was reviewed with the Resident Physician. I agree with the documented findings, disposition and treatment plan as described except to the extent set forth below. We independently had [id number] contact with the patient\ I spent 70 minutes of Critical Care time with this patient. It involved decision making of high complexity to assess, manipulate, and support vital organ system failure and/or to prevent further life threatening deterioration of the patient's condition. The time involved in the performance of separately reportable procedures was not counted toward critical care time. Patient seen and examined at bedside Labs, radiology, chart personally reviewed. Management was reviewed during multidisciplinary critical care rounds. 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 Pulm: Patient has acceptable oxygenation and ventilation patient has significant bilateral pleural effusion with pulmonary edema and possible pneumonia due to underlying new onset systolic heart failure complicated due to ischemic cardiomyopathy patient had ST elevation [place] with stent to SVG to OM Cards: Patient had ST elevation [place] with stent to SVG to OM patient is in shock needing vasopressor therapy started with dopamine and if is not responding will add norepinephrine. FEN-GI: To keep nothing by mouth will advance diet as tolerated tomorrow Renal: Labs and output reviewed the patient has chronic kidney disease with now this cardiogenic shock complicated by possible sepsis ID: Patient has mixed cardiogenic possible sepsis complicating the shock picture Heme/Onc: Labs reviewed, patient is development of bleeding from THE PUNCTURE SITE CONCERN FOR DIC patient has background sepsis Endo: Glucose Monitored Integ/MSK: Skin Care per routine ICU Nursing Protocol to prevent ulcers. Lines: All lines examined without evidence of infection : Dispo: Critically ill CODE:Full Code
[2018-10-10] MEDS ORDERED: *HR* Etomidate 20 MG/10 ML AMPUL IVP ONE (09:54)
[2018-10-10] MEDS ORDERED: *HR* Midazolam HCl 5 MG/5 ML VIAL IVP ONE (09:54)
[2018-10-10] MEDS ORDERED: Perflutren Lipid Microsphere 1.3 ML in 0.9 % Sodium Chloride 8.7 ML IVP ONE (10:00)
[2018-10-10] MEDS ORDERED: Perflutren Lipid Microsphere 2 ML VIAL ONE (10:04)
--- NOTE | 2018-10-10 10:23 | Infectious Disease Consult ---
Infectious Disease-Consult - Encounter Date/Time Date of Encounter: 10/10/18 Time of Encounter: 10:30 - Data of Consult Requesting Physician: Ricky Cummings MD Primary Care Provider: PCP NONE - HPI HPI: Patient is a 63-year-old male past medical history of atrial fibrillation, CHF, CKD Stage 3, COPD, CABG, cellulitis R leg, diabetes and hypertension who was transferred from [facility] because of diarrhea *2 weeks, flu like symptoms, abdominal pain ,respiratory distress complaining of shortness of breath for the past 2-3 days and requiring suppl O2 by mask . Workup in the [facility] showed that patient was tachycardic with labored respiration. He met 3/4 SIRS criteira with pulse of 112, RR 26 temperature 100.2, WBc: 12.5, satting at 95% on 4 L of oxygen mask. Patient was eventually put on BiPAP and was be feeling better. lab work showed anemia at 8.5 and a white blood and lactic acidosis (2.1). His proBNP was 2898.4, troponins at ?? Patient was due for a CT abdominal pelvis but the technical difficulties in the CT scan patient was transferred to [facility] for further management. Workup here at the [facility] showed the patient Vitals were WNL, met SIRS criteria with a white blood count increased to 15.7, with significant bandemia at 70%, worsening anemia at 7.0, Cr 1.56 (baseline ~ 2.00 ), elevated troponins at 30.22, BNP: 868, with a procalcitonin : 53.10. His chest x-ray showed a pulmonary edema and cardiomegaly with small bilateral pleural effusion. Patient was given 20 mg Lasix IV and was started on heparin drip. Overnight due to worsening 3 status, patient was intubated. Patient was seen by cardiology last night for NSTEMI , his limited echo showed a severely reduced LVEF at 25% each is a significant drop from previous echo in 05/30/18 (60-65%) . He underwent a cardiac catheterization by Dr. Velasquez and a bare-metal stent was placed in the saphenous graft OM1. Patient is currently not on heparin drip until he gets his a central line. Patient also has cellulitis in the R leg, was prescribed doxycycline on 10/08 but did not start taking. Of note, patient is a history of the extensive the antibiotic allergy. He is allergic to Biaxin, Percocet, Keflex, Levaquin, mycin, Zithromax, clindamycin. - ROS Review of Systems: A 10-system review of systems was performed and is negative for pertinent findings except as documented above in the HPI. - Results CBC & Chem 7: 10/10/18 17:15 10/10/18 05:00 - Exam Vitals: Temp Pulse Resp BP Pulse Ox 98.3 F 63 20 92/50 96 10/10/18 07:40 10/10/18 09:00 10/10/18 09:42 10/10/18 09:42 10/10/18 09:42 Exam: Gen.: Vitals noted. No acute distress. Currently intibated on pressor support HEENT: oropharynx clear, Normocephalic, atraumatic, MMM Neck: supple, no JVD, no lymphadenopathy, no carotid bruit. Cardiac: RRR, no murmur, +S1/S2, No BLE edema, PMI non-displaced Pulmonary: bilateral wheezing, no rales or rhonchi, equal chest expansion Abdomen: soft, nontender, BS noted, no guarding, undistended. No organomegaly, no pulsatile masses, Skin: R leg cellulites drapped in bandage, warm and dry Extremities: Left leg amputated, R leg cellulites drapped in bandage, warm and dry MSK: ROM not assessed. no joint swelling noted, gait not assessed while in bed. Non tender calf or clubbing, no cyanosis/clubbing/ or edema Neuro: A&O, moves all extremities, no focal deficits, sensation intact Psych: Appropriate mood and behavior, normal speech. Albuterol Sulfate [Proventil Inhaler] 2 puff IH Q4HR PRN 06/27/16 [History] Beclomethasone Diprop 80mcg [QVAR 80 mcg] 1 puff IH BID 06/27/16 [History] Cholecalciferol (D-3) [Vitamin D] 5,000 unit PO DAILY 06/27/16 [History] Ferrous Sulfate [Iron] 325 mg PO BID 06/27/16 [History] Simvastatin [Zocor] 40 mg PO HS 06/27/16 [History] amLODIPine [Norvasc] 10 mg PO DAILY 06/27/16 [History] Ergocalciferol (VITAMIN D2) [Drisdol (50,000 Unit)] 50,000 unit PO QWEEK 12/06/16 [Rx] Albuterol Neb [Proventil Neb] 2.5 mg IH TID PRN 06/18/18 [History] Bumetanide [Bumex] 1 mg PO DAILY 06/18/18 [History] Insulin LISPRO [Humalog Kwikpen U-200] 0 unit SQ AD 06/18/18 [History] Levothyroxine [Synthroid] 75 mcg PO 0630 06/18/18 [History] Montelukast [Singulair] 10 mg PO HS 06/18/18 [History] Sevelamer [Renvela] 800 mg PO TIDWM 06/18/18 [History] Sodium Bicarbonate 650 mg PO TID 06/18/18 [History] Vancomycin Oral Soln [Firvanq] 125 mg PO BID udc 07/05/18 [Rx] Vancomycin Oral Soln [Firvanq] 125 mg PO DAILY udc 07/05/18 [Rx] Vancomycin Oral Soln [Firvanq] 125 mg PO Q48H udc 07/05/18 [Rx] Vancomycin Oral Soln [Firvanq] 125 mg PO Q72H udc 07/05/18 [Rx] Vancomycin Oral Soln [Firvanq] 125 mg PO TID udc 07/05/18 [Rx] Allergy/AdvReac Type Severity Reaction Status Date / Time acetaminophen [From Percocet] Allergy Hives Verified 12/24/16 13:43 atorvastatin [From Lipitor] Allergy Hives Verified 12/24/16 13:43 azithromycin Allergy Hives Verified 12/24/16 13:43 [From Zithromax Z-Sharad] Cefaclor [From Ceclor] Allergy Hives Verified 12/24/16 13:43 cephalexin [From Keflex] Allergy Hives Verified 12/24/16 13:43 ciprofloxacin [From Cipro] Allergy Hives Verified 12/24/16 13:43 clarithromycin [From Biaxin] Allergy Hives Verified 12/24/16 13:43 clindamycin Allergy Hives Verified 12/24/16 13:43 metoprolol Allergy Hives Verified 12/24/16 13:43 moxifloxacin [From Avelox] Allergy Hives Verified 12/24/16 13:43 oxycodone [From Percocet] Allergy Hives Verified 12/24/16 13:43 prednisone Allergy Hives Verified 12/24/16 13:43 Streptomycin Allergy Hives Verified 12/24/16 13:43 sulfamethoxazole Allergy Hives Verified 12/24/16 13:43 [From Bactrim] trimethoprim [From Bactrim] Allergy Hives Verified 12/24/16 13:43 - Assessment and Plan (1) Shock Current Visit: Yes Status: Acute -Likely multifactorial : cardiogenic versus distributive -Patient was transferred from [facility] to ICU because of diarrheal episodes for the past 2 weeks accompanied by abdominal pain -Pertinent Vitals /Labs on admission: Temp: 99.9, Pulse: 97, RR: 27, WBC: 15.7, Band neutrophils 70%, Lactate : 2.1, BNP: 2898. -Pertinent Vitals /Labs now: Temp: 97.8, Pulse: 86, RR: 16, WBC: 9.3 -He also has a right leg cellulitis- no evidence of any bleeding or serosanguineous discharge -Patient was in respiratory distress along with productive cough requiring need for intubation overnight. -Chest x-ray showed bilateral mild and lower lung airspace disease and bilateral pleural effusion with concerns for pulmonary edema -Currently currently has a central line covering pressor support to maintain his MAP PLAN -Obtain CT abdominal pelvis with contrast . -Continue on pressor support to keep his mean arterial pressure above 65 -Continue vancomycin, vancomycin trough around 15 -Continue cefepime 2 g IV every 12 hours -Continue IV Flagyl 500mg q8h -If CT shows signs of colitis then patient can be switched to oral and per rectum vancomycin SNOMED Code(s): 25530948 (2) C. difficile diarrhea Current Visit: Yes Status: Acute -Patient has a history of associated diarrhea . -He was treated in the hospital in the month of June for C. difficile and was on discharged vancomycin taper. -Has been afebrile since admission, over her white blood count of 15.7 at [facility] currently WBC is 10.9. PLAN: - C Diff PCR pending - CT Abdomen/pelvis with contrast to rule in/out megacolon/Ischemic Bowel -Patient will be on IV vancomycin and Flagyl 500 mg IV every 8 hours SNOMED Code(s): 6022043739361 (3) Cellulitis of right leg Current Visit: Yes Status: Acute -Patient has a history of cellulitis of the right leg -10/08/18 recent wound culture grew gram-negative rods, sensitivity pending - 06/21/18 would culture grew : S aureus, Pseudomonas aeruginosa - P aeruginosa: S: Cefepime, ceftazidime, ciprofloxacin, gentamicin, i ndependent, levofloxacin, Zosyn, tobramycin - S auerus: S - daptomycin, doxycycline, gentamicin, oxacillin, rifampin, tetracycline, Zosyn, vancomycin - 06/18/18 would culture grew : Group B strep, Pseudomonas aeruginosa which were pansensitive -Patient is not afebrile at the moment , His white blood count trending down from 15.7 yesterday to 9.3 today. -Curently on Cefepime 2g IV q 12 h - SNOMED Code(s): 524015337 (4) NSTEMI (non-ST elevated myocardial infarction) Current Visit: Yes Status: Acute Patient found to have significant elevation in his troponin with troponin less than upper limit of normal at [facility] and upon arrival to [facility] was found to have troponin of 30.22 and repeat 30.47 * Echocardiogram limited was obtained which shows EF of 25% which is a significant drop from previous in 05/30/18 which had a EF of 60-65% * The patient does have a long history of cardiac disease and has undergone CABG prior * Patient underwent catheterization overnight with Dr. Velasquez and a bare metal st ent was placed in the saphenous venous graft OM1 SNOMED Code(s): 16869003 (5) Congestive heart failure Current Visit: No Status: Acute - Patient has an acute decompensation of heart failure likely due to NSTEMI -Recent echocardiogram showed an EF of 25% which was a significant drop from his EF in 05/2018 when it was 60-65% -Patient was initially started on 20 IV Lasix but since patient is preload dependent owing to his reduced EF , his Lasix will be held - Further management as per the ICU team Qualifiers: Heart failure type: unspecified Heart failure chronicity: chronic Qualified Code(s): I50.9 - Heart failure, unspecified SNOMED Code(s): 92298628 (6) CKD (chronic kidney disease) stage 3, GFR 30-59 ml/min Current Visit: Yes Status: Acute -She has a history of CK D of a stage III -Patient has had a bump in his creatinine from 1.56-1.64, likely due to shock -Avoid nephrotoxic agent and renally dose steroids. No indication for IV hydration because of pulmonary edema but will resume gnetly hydration once patient is hemodynamically stable SNOMED Code(s): 243297878 (7) Allergy to multiple antibiotics Current Visit: Yes Status: Acute Patient allergic to multiple antibiotics like Biaxin, Keflex, Levaquin, Zithromax and clindamycin SNOMED Code(s): 257701366460179 (8) DM type 2 (diabetes mellitus, type 2) Current Visit: Yes Status: Acute Patient has a history of diabetes. Currently on low-dose sliding scale insulin SNOMED Code(s): 15552733 Past Med Surg Social Fam HX - Past Medical History Medical history: asthma, CHF, coronary artery disease, diabetes, GERD, hyperlipidemia, hypertension, renal disease, thyroid disease, other Additional medical history: ckd 4 Psychiatric history: depression - Past Surgical History Surgical History: cholecystectomy, coronary bypass (CABG), sinus surgery Additional surgical history: CABG x3, BCC removed from L ear, heart catheterization, cataracts removed, eye surgery, - Social History Smoking Status: Former smoker Smokeless Tobacco Status: No Alcohol use: none Drug use: none - Family History Mother Adopted: Yes Living Status: Hx Family Endocrine Disorder: Yes (Diabetes) Father Living Status: Hx Family Cardiac Disorders: Yes (Coronary artery disease) Consult Discharge Plan - Plan Referrals: NONE,PCP [Primary Care Provider] - - Attending Attestation I examined this patient and my medical decision-making was reviewed with the Resident Physician. I agree with the documented findings, disposition and treatment plan as described except to the extent set forth below. This is an addendum to original report dictated by resident physician. Please refer to resident's note for full details. Review of the above history of present illness, review of system and physical exam findings. Assessment and plan: 1.Septic shock requiring dopamine for pressor 2.Acute coronary syndrome status post angioplasty 3.Acute respiratory failure on vent support 4.Abdominal anus and distention concern for ischemic bowel 5.Diabetes mellitus type 2 6.History of C. difficile colitis 7.Congestive heart failure 8.Multiple antibiotic allergies 9.Cellulitis right lower extremity causative organism gram-negative juventino final ID pending Recommendations: At this point is not sure was causing septic shock. Could be multifactorial cardiogenic plus infectious. Concerned that patient has an intra-abdominal or pulmonary issues as well. At this point I think we need aggressive antibiotics for broad coverage including cellulitis, possible intra-abdominal process and maybe even aspiration pneumonia. Patient tolerating cefepime without even though he has had other cephalosporin allergies. Get C. difficile PCR and await blood cultures and wound cultures finalize Get a CT chest abdomen and pelvis with oral contrast Continue vancomycin, vancomycin trough around 15 Continue cefepime 2 g IV every 12 hours; creatinine clearance 4550 Continue Flagyl was switched to IV If CT shows signs of colitis we will start the patient on oral and per rectum vancomycin Prognosis guarded at best
[2018-10-10] MEDS: Budesonide/Formoterol 160/4.5 1 PUFF INH IH SCH ×2 (10:47→19:46)
[2018-10-10] MEDS: Cefepime HCl 2,000 MG in Water for inj. (sterile) 20 ML IVP SCH ×2 (11:27→20:05)
--- NOTE | 2018-10-10 11:47 | Event Note ---
Date of Encounter: 10/10/18 Time of Encounter: 08:30 - Cardiology Event Note Seen and examined. Dequan Meyer records reviewed--patient initially presented with complaints of abdominal pain and worsening shortness of breath with productive cough. Temp 100.2 upon arrival, Lactic acid 2.1, BNP 2898, and initial troponin negative. Family also reports x2 week hx of worsening diarrhea, of note, treated for C- diff in June. Past medical hx significant of CAD s/p CABG, HFpEF (60%), CKD, COPD, HTN, and recent BKA. Remains sedated/intubuated in the ICU. s/p LHC with PCI (BMS) to SVG-OM; patent MANCERA to LAD. Do not suspect acute drop in LVEF entirely d/t OH. Troponin now flat at 30. No acute ECG present. Right femoral sheath remains--orders to pull. Recommend continuation of asa and plavix for a minimum of 1 month following BMS placement. Recommend re-starting heparin gtt (standard protocol) given hx of Afib--on Eliquis 5 mg BID at home. Anemia noted, s/p 1 unit PRBC. Per review, appears chronic. Recent Left BKA. When hemodynamically stable, will need to add BB, consider ACEi if BP/renal fu nction will tolerate (hx of CKD). TTE pending. Will continue to follow. Patient was discussed and reviewed with Dr. Bunch; changes to be made accordingly.
[2018-10-10] MEDS ORDERED: Albumin Human 5% 25.0 GM/500 ML VIAL ONE (12:54)
--- NOTE | 2018-10-10 14:12 | Electrocardiograph Report ---
[address] [place] [address] Test Date: 2018-10-09 Pat Name: Chris Sanford Department: 109 Room: PSYCHIATRIC Gender: M [employer] Employee: : 1955 Requested By: Fany Dominguez Order Number: [id number] Reading MD: Jeff Velasquez Measurements Intervals [place] Rate: 97 P: ND: 0 QRS: -9 QRSD: 111 T: 92 QT: 359 QTc: 413 Interpretive Statements sinus rhythm with pvc Electronically Signed On 10-10-2018 14:11:33 EDT by Jeff Velasquez
--- NOTE | 2018-10-10 14:13 | Electrocardiograph Report ---
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
--- NOTE | 2018-10-10 14:33 | Procedure Note ---
<Adelaide Salgado - Last Filed: 10/10/18 14:58> Date of procedure: 10/10/18 Procedure: Central Venous Catheter (CVC, Central Line) Placement Indication: Vasopressor administration Resident: Adelaide Salgado DO Attending: Maria Elena Becerra MD A time-out was completed verifying correct patient, procedure, site, positionin g, and special equipment if applicable. The patient was placed in a dependent position appropriate for central line placement based on the vein to be cannulated. The patients right neck was prepped and draped in sterile fashion. 1% Lidocaine was used to anesthetize the surrounding skin area. A triple lumen 9-Kinyarwanda Cordis catheter was introduced into the the right internal jugular vein using the Seldinger technique and under ultrasound guidance. The catheter was threaded smoothly over the guide wire and appropriate blood return was obtained. Each lumen of the catheter was evacuated of air and flushed with sterile saline. The catheter was then sutured in place to the skin and a sterile dressing applied with antibiotic patch. Placement was confirmed within the vein with ultrasound. Perfusion to the extremity distal to the point of catheter insertion was checked and found to be adequate. Dr. Becerra was present for the entire procedure. Chest XR was obtained and showed no evidence of pneumothorax or misplacement of the central catheter. Estimated Blood Loss: 5 The patient tolerated the procedure well and there were no complications. Surgeon: Adelaide Salgado Was there an physical therapy assistant instructor present: Yes Licensed Staff Mft: Maria Elena Becerra Estimated blood loss (cc): 5 Specimen: none Pathology: none sent Condition: stable Disposition: ICU <Maria Elena Becerra - Last Filed: 10/10/18 17:14> Procedure: I was present during the entire procedure and i assisted in critical portions of the procedure.
[2018-10-10] MEDS ORDERED: 0.9 % Sodium Chloride 500 ML ONE (15:01)
[2018-10-10] MEDS: Norepinephrine 4 MG in D5% in Water 250 ML IVC SCH (16:45)
[2018-10-10] MEDS ORDERED: Vancomycin 1,750 MG in 0.9 % Sodium Chloride 250 ML IVPB SCH (17:00)
--- NOTE | 2018-10-10 17:17 | Podiatry Consult Note ---
Date of Encounter: 10/10/18 Time of Encounter: 17:17 Assessment and Plan (1) Right foot ulcer Current visit: Yes Status: Chronic Assessment: Richard grade II ulceration right foot Undermining noted 0.3 cm, 360 degrees No erythema, edema, or lymphangitis noted to right foot Wound culture obtained Saturday10/08/18 returned gram negative rods, history of staph aureus and psuedomonas Plan: Local wound care orders placed XR ordered to evaluate for OM ESR, CRP ordered Wound appears stable at this time Patient with multiple allergies, ID consulted for ATB management- appreciate recommendations Cleansed with 0.9 NS, covered with calcium alginate AG, covered with 4x4 dry gauze, and medipore Qualifiers: Qualified Code(s): L97.511 - Non-pressure chronic ulcer of other part of right foot limited to breakdown of skin History of Present Illness HPI: Mr. Sanford is a 63 year old male who presented from [facility] yesterday evening secondary to CHF exacerbation, diarrhea and elevated troponin. Patient is intubated at this time and is unable to cooperate in examination. Information is obatined from chart and nurse, no family present at bedside. Patient is known to the podiatry group and follows with Dr. Herrera in wound care. Patient has PMH of A.FIB, CHF, CAD stage IV, COPD, recent treatment for C. difficile, DM, and HTN. Briefly, patient was transferred from [facility] for elevated troponin level and exacerbation of CHF. Overnight patient had respiratory distress and was intub ated. Was taken for emergent heart catheterization where EF was found to be 20- 25%. Patient was consulted to podiatry group for evaluation of ulceration of right foot. Again, Mr. Sanford is a 63 year old male who was consulted to the podiatry group for evaluation of right foot ulceration. Patient was seen in wound care center on Saturday and at that time wound cultures were obtained. They returned gram negative rods. Patient has history of staph aureus and psuedomonas. Patient unable to participate in exam. No documented fevers. WBC 10.9. No streaking, no edema, no erythema noted. Past Med Surg Social Fam HX - Past Medical History Medical history: asthma, CHF, coronary artery disease, diabetes, GERD, hyperlipidemia, hypertension, renal disease, thyroid disease, other Additional medical history: ckd 4 Psychiatric history: depression - Past Surgical History Surgical History: cholecystectomy, coronary bypass (CABG), sinus surgery Additional surgical history: CABG x3, BCC removed from L ear, heart catheteriza tion, cataracts removed, eye surgery, - Social History Smoking Status: Former smoker Smokeless Tobacco Status: No Alcohol use: none Drug use: none - Family History Mother Adopted: Yes Living Status: Hx Family Endocrine Disorder: Yes (Diabetes) Father Living Status: Hx Family Cardiac Disorders: Yes (Coronary artery disease) Medications and Allergies Albuterol Sulfate [Proventil Inhaler] 2 puff IH Q4HR PRN 06/27/16 [History] Beclomethasone Diprop 80mcg [QVAR 80 mcg] 1 puff IH BID 06/27/16 [History] Cholecalciferol (D-3) [Vitamin D] 5,000 unit PO DAILY 06/27/16 [History] Ferrous Sulfate [Iron] 325 mg PO BID 06/27/16 [History] Simvastatin [Zocor] 40 mg PO HS 06/27/16 [History] amLODIPine [Norvasc] 10 mg PO DAILY 06/27/16 [History] Ergocalciferol (VITAMIN D2) [Drisdol (50,000 Unit)] 50,000 unit PO QWEEK 12/06/16 [Rx] Albuterol Neb [Proventil Neb] 2.5 mg IH TID PRN 06/18/18 [History] Bumetanide [Bumex] 1 mg PO DAILY 06/18/18 [History] Insulin LISPRO [Humalog Kwikpen U-200] 0 unit SQ AD 06/18/18 [History] Levothyroxine [Synthroid] 75 mcg PO 0630 06/18/18 [History] Montelukast [Singulair] 10 mg PO HS 06/18/18 [History] Sevelamer [Renvela] 800 mg PO TIDWM 06/18/18 [History] Sodium Bicarbonate 650 mg PO TID 06/18/18 [History] Vancomycin Oral Soln [Firvanq] 125 mg PO BID udc 07/05/18 [Rx] Vancomycin Oral Soln [Firvanq] 125 mg PO DAILY udc 07/05/18 [Rx] Vancomycin Oral Soln [Firvanq] 125 mg PO Q48H udc 07/05/18 [Rx] Vancomycin Oral Soln [Firvanq] 125 mg PO Q72H udc 07/05/18 [Rx] Vancomycin Oral Soln [Firvanq] 125 mg PO TID udc 07/05/18 [Rx] Allergy/AdvReac Type Severity Reaction Status Date / Time acetaminophen [From Percocet] Allergy Hives Verified 12/24/16 13:43 atorvastatin [From Lipitor] Allergy Hives Verified 12/24/16 13:43 azithromycin Allergy Hives Verified 12/24/16 13:43 [From Zithromax Z-Sharad] Cefaclor [From Ceclor] Allergy Hives Verified 12/24/16 13:43 cephalexin [From Keflex] Allergy Hives Verified 12/24/16 13:43 ciprofloxacin [From Cipro] Allergy Hives Verified 12/24/16 13:43 clarithromycin [From Biaxin] Allergy Hives Verified 12/24/16 13:43 clindamycin Allergy Hives Verified 12/24/16 13:43 metoprolol Allergy Hives Verified 12/24/16 13:43 moxifloxacin [From Avelox] Allergy Hives Verified 12/24/16 13:43 oxycodone [From Percocet] Allergy Hives Verified 12/24/16 13:43 prednisone Allergy Hives Verified 12/24/16 13:43 Streptomycin Allergy Hives Verified 12/24/16 13:43 sulfamethoxazole Allergy Hives Verified 12/24/16 13:43 [From Bactrim] trimethoprim [From Bactrim] Allergy Hives Verified 12/24/16 13:43 ROS unobtainable: due to endotracheal tube All Systems Reviewed: The remainder of the systems were reviewed and are negative Physical Exam - Constitutional Vitals: Temp Pulse Resp BP Pulse Ox 97.8 F 82 20 107/52 98 10/10/18 15:35 10/10/18 17:00 10/10/18 17:00 10/10/18 17:00 10/10/18 17:00 Exam: Constitiutional: Intubated. Sedated Vascular: 1/4 DP/PT RLE, CFT <3 sec to all digits RLE, warm to warm from tibia to toes RLE, L BKA Neurologic: normal plantar response Dermatologic: Richard grade II ulceration with undermining 360 degrees 0.3 cm, slough noted, no erythema, no edema, no lymphangitis noted to right foot Musculoskeletal: normal tone LLE. Results - Labs Result Diagrams: 10/10/18 04:00 10/10/18 05:00 Labs: Abnormal lab results WBC 15.7 K/mcL (4.3-11.1) H 10/09/18 22:18 RBC 2.53 M/mcL (4.19-5.50) L 10/10/18 04:00 Hgb 7.3 g/dL (12.9-16.9) L 10/10/18 04:00 Hct 23.2 % (37.5-50.1) L 10/10/18 04:00 MCHC 31.5 g/dL (31.6-35.5) L 10/10/18 04:00 RDW 15.4 % (11.5-14.5) H 10/10/18 04:00 Plt Count 111 K/mcL (140-400) L 10/10/18 04:00 Band Neutrophils % 70.0 % (0-4) H 10/09/18 22:18 Neutrophils # 9.6 K/mcL (1.6-8.9) H 10/10/18 04:00 PT 18.6 Seconds (9.4-12.1) H 10/10/18 07:00 Heparin Anti-Xa, Unfract 0.26 IU/mL (0.30-0.70) L 10/09/18 22:18 ABG pO2 52 mmHg (85-104) L 10/10/18 04:35 ABG O2 Saturation 87 % (95-98) L 10/10/18 04:35 VBG pO2 69 mmHg (25-50) H 10/09/18 22:28 Sodium 133 mEq/L (136-145) L 10/10/18 05:00 Carbon Dioxide 22 mEq/L (23-29) L 10/10/18 05:00 Creatinine 1.64 mg/dL (0.70-1.30) H 10/10/18 05:00 Est GFR ( Amer) 52 (> 60) L 10/10/18 05:00 Est GFR (Non-Af Amer) 43 (> 60) L 10/10/18 05:00 Glucose 189 mg/dL (70-105) H 10/10/18 05:00 POC Glucose 137 mg/dL (70-99) H 10/10/18 00:11 Calcium 7.7 mg/dL (8.6-10.3) L 10/10/18 05:00 AST 66 Units/L (13-39) H 10/09/18 22:18 Troponin I 31.20 ng/mL (< 0.04) H* 10/10/18 12:00 B-Natriuretic Peptide 868 pg/mL (Less than 100) H 10/09/18 22:18 Albumin 2.9 g/dL (3.5-5.7) L 10/09/18 22:18 Globulin 4.3 g/dL (2.4-3.5) H 10/09/18 22:18 Albumin/Globulin Ratio 0.7 (1.1-2.2) L 10/09/18 22:18 Procalcitonin 53.10 ng/mL (0.00-0.15) H 10/10/18 05:00 Urine Clarity Cloudy (Clear) A 10/10/18 00:42 Urine Protein >=300 mg/dL (Neg-Trace) H 10/10/18 00:42 Urine Ketones Trace mg/dL (Negative) H 10/10/18 00:42 Urine Blood Trace (Negative) H 10/10/18 00:42 Urine Bilirubin Moderate (Negative) H 10/10/18 00:42 Urine Microscopic RBC 3-5 per hpf (0-3) H 10/10/18 00:42 Urine Microscopic WBC 5-15 per hpf (0-3) H 10/10/18 00:42 Ur Squamous Epith Cells Many per lpf (None-Few) H 10/10/18 00:42 Hyaline Casts Many per lpf (None-Few) H 10/10/18 00:42 Nasal Screen MRSA (PCR) Positive (Negative) A 10/09/18 22:59 Crossmatch See Detail 10/09/18 22:18 H & H 10/09/18 10/10/18 Range/Units 22:18 04:00 Hgb 7.0 L 7.3 L (12.9-16.9) g/dL Hct 23.0 L 23.2 L (37.5-50.1) % All other labs normal. Consult Discharge Plan - Plan Referrals: NONE,PCP [Primary Care Provider] -
[2018-10-10 18:10] LABS: Basophils % 0.1 %; Eosinophils % 0.2 %; Hematocrit 25.8 % (37.5-50.1); Hemoglobin 8.1 g/dL (12.9-16.9); Lymphocytes # 0.9 K/mcL (0.6-4.6); Lymphocytes % 10.1 %; Mean Corpuscular HGB Conc 31.4 g/dL (31.6-35.5); Mean Corpuscular Hemoglobin 28.8 pg (28.0-33.3); Mean Corpuscular Volume 91.8 fL (83.0-100.0); Mean Platelet Volume 10.4 fL (9.4-12.4); Monocytes # 0.6 K/mcL (0.0-1.3); Monocytes % 6.5 %; Neutrophils # 7.6 K/mcL (1.6-8.9); Platelet Count 110 K/mcL (140-400); Red Blood Count 2.81 M/mcL (4.19-5.50); Red Cell Distribution Width 15.7 % (11.5-14.5); Segmented Neutrophils % 82.1 %; White Blood Count 9.3 K/mcL (4.3-11.1)
[2018-10-10 18:17] LABS: INR 1.5; Prothrombin Time 17.4 Seconds (9.4-12.1)
[2018-10-10 18:20] LABS: Activated Partial Thrombo Time 40.4 Seconds (26.0-36.0)
[2018-10-10 19:25] LABS: Campylobacter by PCR Not detected (Not detect)
[2018-10-10 19:27] LABS: Adenovirus F 40/41 PCR Not detected (Not detect); Astrovirus PCR Not detected (Not detect); C.difficile Toxin A/B Gene PCR DETECTED (Not detect); Cryptosporidium by PCR Not detected (Not detect); Cyclospora cayetanensis PCR Not detected (Not detect); E. coli O157 by PCR Not detected (Not detect); Entamoeba histolytica PCR Not detected (Not detect); Enteroaggregative E.coli(EAEC) Not detected (Not detect); Enteropathogenic E.coli(EPEC) Not detected (Not detect); Enterotoxigenic E.coli (ETEC) Not detected (Not detect); Giardia lamblia PCR Not detected (Not detect); Norovirus GI/GII PCR Not detected (Not detect); Plesiomonas shigelloides PCR Not detected (Not detect); Rotavirus A PCR Not detected (Not detect); Salmonella PCR Not detected (Not detect); Sapovirus PCR Not detected (Not detect); Shig/EnteroinvasiveE coli EIEC Not detected (Not detect); Shigalike tox-prod E coli STEC Not detected (Not detect); Vibrio PCR Not detected (Not detect); Vibrio cholerae PCR Not detected (Not detect); Yersinia enterocolitica PCR Not detected (Not detect)
[2018-10-10 19:36] LABS: VBG Ionized Calcium 1.07 mmol/L (1.15-1.35)
[2018-10-10] MEDS: MetroNIDAZOLE 500 MG/100 ML 500 MG/100 ML BAG IVPB SCH (20:05)
[2018-10-10 20:08] LABS: C-Reactive Protein 209 mg/L (Less than 10); Lactate Dehydrogenase 286 Units/L (140-271)
[2018-10-11] MEDS: Ipratropium/Albuterol Neb 3 ML IH SCH ×7 (00:08→23:46)
[2018-10-11] MEDS: Vancomycin 500 MG, Sodium Chloride IRRigation 250 ML RC SCH ×5 (00:54→20:09)
[2018-10-11] MEDS: Furosemide 240 MG in D5% in Water 96 ML IVC SCH (00:57)
[2018-10-11] MEDS: Artificial Tears SOLN 15 ML BOTTLE BOTH EYES SCH ×7 (00:57→23:41)
[2018-10-11] MEDS: MetroNIDAZOLE 500 MG/100 ML 500 MG/100 ML BAG IVPB SCH ×4 (00:59→23:41)
[2018-10-11] MEDS: Insulin LISPRO 300 UNITS/3 ML VIAL SQ SCH ×4 (01:00→18:51)
[2018-10-11] MEDS: Vancomycin Oral Soln 125 MG/2.5 ML UDC PO SCH ×5 (01:01→21:17)
[2018-10-11] MEDS: Calcium Gluconate 1gm/50mL 1 GM/50 ML BAG IVPB PRN (01:52)
[2018-10-11 04:29] LABS: Basophils % 0.3 %; Eosinophils # 0.1 K/mcL (0.0-0.6); Eosinophils % 1.7 %; Hematocrit 24.9 % (37.5-50.1); Hemoglobin 8.1 g/dL (12.9-16.9); Immature Granulocytes % 1.1 % (0-4); Lymphocytes # 0.5 K/mcL (0.6-4.6); Mean Corpuscular HGB Conc 32.5 g/dL (31.6-35.5); Mean Corpuscular Hemoglobin 29.3 pg (28.0-33.3); Mean Corpuscular Volume 90.2 fL (83.0-100.0); Mean Platelet Volume 10.5 fL (9.4-12.4); Monocytes # 0.5 K/mcL (0.0-1.3); Monocytes % 8.2 %; Neutrophils # 5.4 K/mcL (1.6-8.9); Platelet Count 100 K/mcL (140-400); Red Blood Count 2.76 M/mcL (4.19-5.50); Segmented Neutrophils % 81.7 %; White Blood Count 6.6 K/mcL (4.3-11.1)
[2018-10-11 04:29] LABS: VBG Ionized Calcium 1.13 mmol/L (1.15-1.35)
[2018-10-11 04:47] LABS: Calcium 7.8 mg/dL (8.6-10.3); Magnesium 1.9 mg/dL (1.6-2.6); Phosphorous 3.3 mg/dL (2.7-4.5); Potassium 3.6 mEq/L (3.5-5.1)
[2018-10-11] MEDS: Heparin 25,000 UNIT/250 ML D5W 25,000 UNIT/250 ML IV.SOLN IVC SCH (04:55)
[2018-10-11 05:04] LABS: ABG Base Excess -2 mEq/L (-2 to 3); ABG HCO3 23 mEq/L (21-27); ABG Oxygen Saturation 96 % (95-98); ABG PCO2 44 mmHg (35-45); ABG PH 7.34 pH Units (7.32-7.45); ABG PO2 89 mmHg (85-104); ABG TCO2 25 mEq/L (20-26); Blood Gas PEEP 8 cm H2O; Blood Gas VT 450 cc
[2018-10-11] MEDS: Pantoprazole 40 MG VIAL IVP SCH (05:12)
[2018-10-11] MEDS: Budesonide/Formoterol 160/4.5 1 PUFF INH IH SCH ×2 (07:40→19:32)
[2018-10-11] MEDS ORDERED: Furosemide 40 MG/4 ML VIAL IVP ONE (07:44)
[2018-10-11] MEDS: Cefepime HCl 2,000 MG in Water for inj. (sterile) 20 ML IVP SCH ×2 (08:04→20:09)
[2018-10-11] MEDS: Chlorhexidine Rinse 15 ML MOUTHWASH MM SCH ×2 (08:04→20:09)
--- NOTE | 2018-10-11 09:21 | Pulmonology Progress Note ---
<Adelaide Salgado - Last Filed: 10/11/18 15:40> Date of Encounter: 10/11/18 Time of Encounter: 09:21 Assessment and Plan (1) Acute [place] Current Visit: Yes Status: Acute * Patient found to have significant elevation in his troponin with troponin less than upper limit of normal at [facility] and upon arrival to [facility] was found to have troponin of 30.22 and repeat 30.47 * Echocardiogram limited was obtained which shows EF of 25% which is a signi ficant drop from previous in 05/30/18 which had a EF of 60-65% * The patient does have a long history of cardiac disease and has undergone CABG prior * Patient underwent catheterization overnight with Dr. Velasquez and a bare metal stent was placed in the saphenous venous graft OM1 * Continuing on aspirin and Plavix * We will continue to hold heparin given patient's recent transfusion, concern for continued bleeding Qualifiers: Involved coronary artery: unspecified coronary artery Qualified Code(s): I21.9 - Acute myocardial infarction, unspecified (2) C. difficile diarrhea Current Visit: Yes Status: Suspected * Per family this started as an outpatient. * At this time there is been no fecal output per nursing staff * Will continue with oral Flagyl and vancomycin via OG * We will send stool studies when available * Will obtain CT abdomen/pelvis with oral contrast to evaluate for ischemic colitis versus infectious colitis (3) Acute exacerbation of CHF (congestive heart failure) Current Visit: Yes Status: Acute * Patient had acute decompensation of his heart failure likely secondary to subacute versus acute myocardial infarction * EF on limited echo was 25%, of a significant decrease from May 2018 when it was 60-65% * Patient given IV fluids yesterday but continues to have hypotension, currently on dopamine and intermittently Levophed, CVC placed yesterday * We will give one-time dose of Lasix 40 mg IV and attempt to improve peripheral edema and pulmonary edema * Continues to remain ventilated and sedated Qualifiers: Heart failure type: diastolic Qualified Code(s): I50.33 - Acute on chronic diastolic (congestive) heart failure (4) Acute on chronic blood loss anemia Current Visit: Yes Status: Acute * Does appear to have chronic anemia at baseline, appears to have hemoglobin of approximately 8-9 * Patient received 2 units packed red blood cells, today's hemoglobin stable at 8.1 * Fecal occult negative for blood * we will recheck CBC this afternoon (5) Chronic venous hypertension w/ulcer and inflammation involv both sides Current Visit: Yes Status: Chronic * Infectious disease and wound care following, right lower extremity has area dressed and appears dry * Podiatry consulted and evaluated * Left BKA (6) Pneumonia Current Visit: Yes Status: Acute * Sputum shows no growth at this time * Continue with cefepime and vancomycin, infectious disease following and appreciate their recommendations * Likely consolidation is predominantly effusion but at this point cannot rule out infection therefore will continue with antibiotic Qualifiers: Pneumonia type: due to unspecified organism Laterality: unspecified laterality Lung location: unspecified part of lung Qualified Code(s): J18.9 - Pneumonia, unspecified organism (7) CKD (chronic kidney disease) stage 4, GFR 15-29 ml/min Current Visit: Yes Status: Acute * Per history, today has increased to 1.80 * Will give lasix and follow output, possibly related to hepatorenal syndrome (8) COPD (chronic obstructive pulmonary disease) Current Visit: Yes Status: Acute * Continue with bronchodilators Qualifiers: COPD type: unspecified COPD Qualified Code(s): J44.9 - Chronic obstructive pulmonary disease, unspecified (9) Right foot ulcer Current Visit: Yes Status: Chronic * Per podiatry recommendations * Patient grew 10/08/18 GNR - gistory of staph aureus and pseudomonas * On vancomycin, cefepime Qualifiers: Non-pressure ulcer stage: limited to breakdown of skin Qualified Code(s): L97.511 - Non-pressure chronic ulcer of other part of right foot limited to breakdown of skin (10) Hypertension Current Visit: Yes Status: Chronic * Home meds held given hypotension Qualifiers: Hypertension type: essential hypertension Qualified Code(s): I10 - Essential (primary) hypertension (11) DVT prophylaxis Current Visit: Yes Status: Acute * Given high risk for bleeding continue on EPCDs Objective PUL Vital signs: Last Vital Signs Temp 97.1 F L 10/11/18 04:00 Pulse 65 10/11/18 08:00 Resp 16 10/11/18 08:00 BP 71/42 10/11/18 08:00 Pulse Ox 99 10/11/18 08:00 General appearance: comatose Eyes: nonicteric ENT: oropharynx moist Neck: other (right CVC at right IJ has continued mild bleeding, 1 suture placed at site of catheter insertion with improvement of bleeding) Effort: normal (on mechanical ventilation) Auscultation: bilateral: diminished breath sounds Cardiovascular: regular rate and rhythm Gastrointestinal: normoactive bowel sounds Integumentary: normal Musculoskeletal: no deformities pupils equal and round, unable to assess due to mental status Ventilator Settings Ventilator Settings: Ventilator Settings, Last 8 Hours Ventilator Tidal Volume 420 Setting Ventilator Tidal Volume 450 Setting Ventilator Tidal Volume 450 Setting Ventilator Tidal Volume 450 Setting Ventilator Tidal Volume 447 Setting Ventilator Tidal Volume 448 Setting Ventilator Tidal Volume 450 Setting Ventilator Tidal Volume 422 Setting Ventilator Tidal Volume 448 Setting Ventilator Tidal Volume 422 Setting Ventilator Tidal Volume 422 Setting Ventilator Tidal Volume 422 Setting Ventilator Respiratory Rate 18 Setting Ventilator Respiratory Rate 16 Setting Ventilator Respiratory Rate 16 Setting Ventilator Respiratory Rate 16 Setting Ventilator Respiratory Rate 16 Setting Ventilator Respiratory Rate 16 Setting Ventilator Respiratory Rate 16 Setting Ventilator Respiratory Rate 16 Setting Ventilator Respiratory Rate 16 Setting Ventilator Respiratory Rate 16 Setting Ventilator Respiratory Rate 16 Setting Ventilator Respiratory Rate 16 Setting Actual Respiratory Rate 18 Actual Respiratory Rate 16 Actual Respiratory Rate 16 Actual Respiratory Rate 16 Actual Respiratory Rate 16 Actual Respiratory Rate 16 Actual Respiratory Rate 16 Actual Respiratory Rate 16 Actual Respiratory Rate 19 Actual Respiratory Rate 16 Actual Respiratory Rate 19 Positive End Expiratory 8 Pressure Positive End Expiratory 8 Pressure Positive End Expiratory 8 Pressure Positive End Expiratory 8 Pressure Positive End Expiratory 8 Pressure Positive End Expiratory 8 Pressure Positive End Expiratory 8 Pressure Positive End Expiratory 8 Pressure Positive End Expiratory 8 Pressure Positive End Expiratory 8 Pressure Positive End Expiratory 8 Pressure Positive End Expiratory 8 Pressure Peak Inspiratory Airway 33 Pressure Peak Inspiratory Airway 34 Pressure Peak Inspiratory Airway 34 Pressure Peak Inspiratory Airway 30 Pressure Peak Inspiratory Airway 29 Pressure Peak Inspiratory Airway 28 Pressure Peak Inspiratory Airway 30 Pressure Peak Inspiratory Airway 28 Pressure Peak Inspiratory Airway 28 Pressure Peak Inspiratory Airway 29 Pressure Peak Inspiratory Airway 28 Pressure Results - Laboratory Findings CBC and BMP: 10/11/18 12:00 10/11/18 12:00 ABG ABG pH 7.34 pH Units (7.32-7.45) 10/11/18 05:00 ABG pCO2 44 mmHg (35-45) 10/11/18 05:00 ABG pO2 89 mmHg (85-104) 10/11/18 05:00 ABG O2 Saturation 96 % (95-98) 10/11/18 05:00 PT/INR, D-dimer PT 17.4 Seconds (9.4-12.1) H 10/10/18 17:15 Abnormal lab findings: Abnormal lab results WBC 15.7 K/mcL (4.3-11.1) H 10/09/18 22:18 RBC 2.76 M/mcL (4.19-5.50) L 10/11/18 04:05 Hgb 8.1 g/dL (12.9-16.9) L 10/11/18 04:05 Hct 24.9 % (37.5-50.1) L 10/11/18 04:05 MCHC 31.4 g/dL (31.6-35.5) L 10/10/18 17:15 RDW 16.0 % (11.5-14.5) H 10/11/18 04:05 Plt Count 100 K/mcL (140-400) L 10/11/18 04:05 Band Neutrophils % 70.0 % (0-4) H 10/09/18 22:18 Neutrophils # 9.6 K/mcL (1.6-8.9) H 10/10/18 04:00 Lymphocytes # 0.5 K/mcL (0.6-4.6) L 10/11/18 04:05 ESR 79 mm/hr (0-10) H 10/10/18 18:56 PT 17.4 Seconds (9.4-12.1) H 10/10/18 17:15 APTT 40.4 Seconds (26.0-36.0) H 10/10/18 17:15 Fibrinogen 465 mg/dL (169-393) H 10/10/18 17:15 Heparin Anti-Xa, Unfract 0.26 IU/mL (0.30-0.70) L 10/09/18 22:18 ABG pO2 52 mmHg (85-104) L 10/10/18 04:35 ABG O2 Saturation 87 % (95-98) L 10/10/18 04:35 VBG pO2 69 mmHg (25-50) H 10/09/18 22:28 Sodium 133 mEq/L (136-145) L 10/10/18 05:00 Carbon Dioxide 22 mEq/L (23-29) L 10/10/18 05:00 BUN 25 mg/dL (8-23) H 10/11/18 04:05 Creatinine 1.80 mg/dL (0.70-1.30) H 10/11/18 04:05 Est GFR ( Amer) 46 (> 60) L 10/11/18 04:05 Est GFR (Non-Af Amer) 38 (> 60) L 10/11/18 04:05 Glucose 183 mg/dL (70-105) H 10/11/18 04:05 POC Glucose 216 mg/dL (70-99) H 10/11/18 00:38 Calcium 7.8 mg/dL (8.6-10.3) L 10/11/18 04:05 Venous Ioniz Calcium 1.13 mmol/L (1.15-1.35) L 10/11/18 04:25 AST 66 Units/L (13-39) H 10/09/18 22:18 Lactate Dehydrogenase 286 Units/L (140-271) H 10/10/18 19:23 Troponin I 31.20 ng/mL (< 0.04) H* 10/10/18 12:00 C-Reactive Protein 209 mg/L (Less than 10) H 10/10/18 19:23 B-Natriuretic Peptide 868 pg/mL (Less than 100) H 10/09/18 22:18 Albumin 2.9 g/dL (3.5-5.7) L 10/09/18 22:18 Globulin 4.3 g/dL (2.4-3.5) H 10/09/18 22:18 Albumin/Globulin Ratio 0.7 (1.1-2.2) L 10/09/18 22:18 Procalcitonin 53.10 ng/mL (0.00-0.15) H 10/10/18 05:00 Urine Clarity Cloudy (Clear) A 10/10/18 00:42 Urine Protein >=300 mg/dL (Neg-Trace) H 10/10/18 00:42 Urine Ketones Trace mg/dL (Negative) H 10/10/18 00:42 Urine Blood Trace (Negative) H 10/10/18 00:42 Urine Bilirubin Moderate (Negative) H 10/10/18 00:42 Urine Microscopic RBC 3-5 per hpf (0-3) H 10/10/18 00:42 Urine Microscopic WBC 5-15 per hpf (0-3) H 10/10/18 00:42 Ur Squamous Epith Cells Many per lpf (None-Few) H 10/10/18 00:42 Hyaline Casts Many per lpf (None-Few) H 10/10/18 00:42 Nasal Screen MRSA (PCR) Positive (Negative) A 10/09/18 22:59 Stl C.diff Tox A&B Gene DETECTED (Not detect) A 10/09/18 13:59 Crossmatch See Detail 10/09/18 22:18 - Microbiology Findings Microbiology Findings: Microbiology, Last 48 Hours 10/09/18 13:59 Clostridium difficile Toxin A & B - Final Stool 10/09/18 22:59 Nasal Screen MRSA/MSSA - Final Nose 10/09/18 22:18 Blood Culture - Preliminary Peripheral Venipuncture Culture is incubating and being continuously mon itored for growth. Final report to follow. 10/09/18 22:18 Blood Culture - Preliminary Peripheral Venipuncture Culture is incubating and being continuously monitored for growth. Final report to follow. - Clinical Findings Intake & Output: Intake & Output 10/10/18 10/11/18 10/11/18 23:59 07:59 15:59 Intake Total 1142.3 / 2163.0 265 / 385 120 / 385 Output Total 450 / 885 300 / 300 Balance 692.3 / 1278.0 -35 / 85 120 / 85 Weight 114.9 kg Consult Discharge Plan - Plan Referrals: NONE,PCP [Primary Care Provider] - <Maria Elena Becerra - Last Filed: 10/11/18 22:54> Date of Encounter: 10/11/18 Objective PUL Vital signs: Last Vital Signs Temp 97.4 F L 10/11/18 20:00 Pulse 79 10/11/18 21:00 Resp 19 10/11/18 22:38 BP 102/55 10/11/18 21:00 Pulse Ox 100 10/11/18 22:38 Ventilator Settings Ventilator Settings: Ventilator Settings, Last 8 Hours Ventilator Tidal Volume 420 Setting Ventilator Tidal Volume 420 Setting Ventilator Tidal Volume 420 Setting Ventilator Tidal Volume 420 Setting Ventilator Tidal Volume 420 Setting Ventilator Tidal Volume 420 Setting Ventilator Tidal Volume 420 Setting Ventilator Tidal Volume 420 Setting Ventilator Tidal Volume 420 Setting Ventilator Tidal Volume 420 Setting Ventilator Tidal Volume 420 Setting Ventilator Respiratory Rate 18 Setting Ventilator Respiratory Rate 18 Setting Ventilator Respiratory Rate 18 Setting Ventilator Respiratory Rate 18 Setting Ventilator Respiratory Rate 18 Setting Ventilator Respiratory Rate 18 Setting Ventilator Respiratory Rate 18 Setting Ventilator Respiratory Rate 18 Setting Ventilator Respiratory Rate 18 Setting Ventilator Respiratory Rate 18 Setting Ventilator Respiratory Rate 18 Setting Actual Respiratory Rate 18 Actual Respiratory Rate 21 Actual Respiratory Rate 18 Actual Respiratory Rate 18 Actual Respiratory Rate 18 Actual Respiratory Rate 18 Actual Respiratory Rate 18 Actual Respiratory Rate 18 Actual Respiratory Rate 18 Actual Respiratory Rate 18 Actual Respiratory Rate 18 Positive End Expiratory 8 Pressure Positive End Expiratory 8 Pressure Positive End Expiratory 8 Pressure Positive End Expiratory 8 Pressure Positive End Expiratory 8 Pressure Positive End Expiratory 8 Pressure Positive End Expiratory 8 Pressure Positive End Expiratory 8 Pressure Positive End Expiratory 8 Pressure Positive End Expiratory 8 Pressure Positive End Expiratory 8 Pressure Peak Inspiratory Airway 28 Pressure Peak Inspiratory Airway 29 Pressure Peak Inspiratory Airway 30 Pressure Peak Inspiratory Airway 30 Pressure Peak Inspiratory Airway 30 Pressure Peak Inspiratory Airway 30 Pressure Peak Inspiratory Airway 31 Pressure Peak Inspiratory Airway 32 Pressure Peak Inspiratory Airway 32 Pressure Peak Inspiratory Airway 29 Pressure Peak Inspiratory Airway 32 Pressure Results - Laboratory Findings CBC and BMP: 10/11/18 12:00 10/11/18 12:00 ABG ABG pH 7.34 pH Units (7.32-7.45) 10/11/18 05:00 ABG pCO2 44 mmHg (35-45) 10/11/18 05:00 ABG pO2 89 mmHg (85-104) 10/11/18 05:00 ABG O2 Saturation 96 % (95-98) 10/11/18 05:00 PT/INR, D-dimer PT 17.4 Seconds (9.4-12.1) H 10/10/18 17:15 Abnormal lab findings: Abnormal lab results WBC 15.7 K/mcL (4.3-11.1) H 10/09/18 22:18 RBC 2.90 M/mcL (4.19-5.50) L 10/11/18 12:00 Hgb 8.4 g/dL (12.9-16.9) L 10/11/18 12:00 Hct 26.1 % (37.5-50.1) L 10/11/18 12:00 MCHC 31.4 g/dL (31.6-35.5) L 10/10/18 17:15 RDW 15.9 % (11.5-14.5) H 10/11/18 12:00 Plt Count 102 K/mcL (140-400) L 10/11/18 12:00 Band Neutrophils % 70.0 % (0-4) H 10/09/18 22:18 Neutrophils # 9.6 K/mcL (1.6-8.9) H 10/10/18 04:00 Lymphocytes # 0.5 K/mcL (0.6-4.6) L 10/11/18 04:05 ESR 79 mm/hr (0-10) H 10/10/18 18:56 PT 17.4 Seconds (9.4-12.1) H 10/10/18 17:15 APTT 40.4 Seconds (26.0-36.0) H 10/10/18 17:15 Fibrinogen 465 mg/dL (169-393) H 10/10/18 17:15 Heparin Anti-Xa, Unfract 0.26 IU/mL (0.30-0.70) L 10/09/18 22:18 ABG pO2 52 mmHg (85-104) L 10/10/18 04:35 ABG O2 Saturation 87 % (95-98) L 10/10/18 04:35 VBG pO2 69 mmHg (25-50) H 10/09/18 22:28 Sodium 135 mEq/L (136-145) L 10/11/18 12:00 Carbon Dioxide 22 mEq/L (23-29) L 10/10/18 05:00 BUN 27 mg/dL (8-23) H 10/11/18 12:00 Creatinine 1.85 mg/dL (0.70-1.30) H 10/11/18 12:00 Est GFR ( Amer) 45 (> 60) L 10/11/18 12:00 Est GFR (Non-Af Amer) 37 (> 60) L 10/11/18 12:00 Glucose 163 mg/dL (70-105) H 10/11/18 12:00 POC Glucose 216 mg/dL (70-99) H 10/11/18 00:38 Calcium 8.0 mg/dL (8.6-10.3) L 10/11/18 12:00 Venous Ioniz Calcium 1.13 mmol/L (1.15-1.35) L 10/11/18 04:25 AST 66 Units/L (13-39) H 10/09/18 22:18 Lactate Dehydrogenase 286 Units/L (140-271) H 10/10/18 19:23 Troponin I 31.20 ng/mL (< 0.04) H* 10/10/18 12:00 C-Reactive Protein 209 mg/L (Less than 10) H 10/10/18 19:23 B-Natriuretic Peptide 868 pg/mL (Less than 100) H 10/09/18 22:18 Albumin 2.9 g/dL (3.5-5.7) L 10/09/18 22:18 Globulin 4.3 g/dL (2.4-3.5) H 10/09/18 22:18 Albumin/Globulin Ratio 0.7 (1.1-2.2) L 10/09/18 22:18 Procalcitonin 53.10 ng/mL (0.00-0.15) H 10/10/18 05:00 Urine Clarity Cloudy (Clear) A 10/10/18 00:42 Urine Protein >=300 mg/dL (Neg-Trace) H 10/10/18 00:42 Urine Ketones Trace mg/dL (Negative) H 10/10/18 00:42 Urine Blood Trace (Negative) H 10/10/18 00:42 Urine Bilirubin Moderate (Negative) H 10/10/18 00:42 Urine Microscopic RBC 3-5 per hpf (0-3) H 10/10/18 00:42 Urine Microscopic WBC 5-15 per hpf (0-3) H 10/10/18 00:42 Ur Squamous Epith Cells Many per lpf (None-Few) H 10/10/18 00:42 Hyaline Casts Many per lpf (None-Few) H 10/10/18 00:42 Nasal Screen MRSA (PCR) Positive (Negative) A 10/09/18 22:59 Stl C.diff Tox A&B Gene DETECTED (Not detect) A 10/09/18 13:59 Crossmatch See Detail 10/09/18 22:18 - Microbiology Findings Microbiology Findings: Microbiology, Last 48 Hours 10/09/18 13:59 Clostridium difficile Toxin A & B - Final Stool 10/09/18 22:59 Nasal Screen MRSA/MSSA - Final Nose 10/09/18 22:18 Blood Culture - Preliminary Peripheral Venipuncture Culture is incubating and being continuously monitored for growth. Final report to follow. 10/09/18 22:18 Blood Culture - Preliminary Peripheral Venipuncture Culture is incubating and being continuously monitored for growth. Final report to follow. - Clinical Findings Intake & Output: Intake & Output 10/11/18 10/11/18 10/11/18 07:59 15:59 23:59 Intake Total 765 / 1546 354 / 1546 427 / 1546 Output Total 300 / 1435 435 / 1435 700 / 1435 Balance 465 / 111 -81 / 111 -273 / 111 Weight 114.9 kg - Attending Attestation Attending Attestation I saw and evaluated this patient and my medical decision-making was reviewed with the Resident Physician. I agree with the documented findings, disposition and treatment plan as described except to the extent set forth below. We independently had [id number] contact with the patient\ I spent 45 minutes of Critical Care time with this patient. It involved decision making of high complexity to assess, manipulate, and support vital organ system failure and/or to prevent further life threatening deterioration of the patient's condition. The time involved in the performance of separately reportable procedures was not counted toward critical care time. Patient seen and examined at bedside Labs, radiology, chart personally reviewed. Management was reviewed during multidisciplinary critical care rounds. 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 10/11 patient has acceptable oxygenation and ventilation adjusted tidal volume for low tidal volume strategy. Patient Plateau pressure is less than 30 cm of water patient still has significant had steady pulmonary edema component because of cardiogenic shock complicated by sepsis we cannot diurese at this moment FEN-GI: Start on trophic feeding. CT abdomen showed no evidence of toxic megacolon some colitis patient C. difficile is positive. Renal: Labs and output reviewed the patient has chronic kidney disease with now this cardiogenic shock complicated by possible sepsis ID: Patient has mixed cardiogenic possible sepsis complicating the shock picture to cover with broad-spectrum antibiotics and also antibiotics for C. difficile colitis Heme/Onc: Labs reviewed Endo: Glucose Monitored Integ/MSK: Skin Care per routine ICU Nursing Protocol to prevent ulcers. Lines: All lines examined without evidence of infection : Dispo: Critically ill CODE:Full Code
[2018-10-11 12:13] LABS: White Blood Count 7.2 K/mcL (4.3-11.1)
[2018-10-11 12:14] LABS: Basophils % 0.3 %; Eosinophils # 0.2 K/mcL (0.0-0.6); Eosinophils % 3.2 %; Hematocrit 26.1 % (37.5-50.1); Hemoglobin 8.4 g/dL (12.9-16.9); Immature Granulocytes % 0.6 % (0-4); Lymphocytes # 0.6 K/mcL (0.6-4.6); Lymphocytes % 7.7 %; Mean Corpuscular HGB Conc 32.2 g/dL (31.6-35.5); Mean Platelet Volume 9.9 fL (9.4-12.4); Monocytes # 0.7 K/mcL (0.0-1.3); Monocytes % 9.4 %; Neutrophils # 5.6 K/mcL (1.6-8.9); Platelet Count 102 K/mcL (140-400); Red Cell Distribution Width 15.9 % (11.5-14.5); Segmented Neutrophils % 78.8 %
[2018-10-11] MEDS: FentaNYL (PF) 1,000 MCG in 0.9 % Sodium Chloride 80 ML IVC SCH (12:17)
[2018-10-11] MEDS ORDERED: Lidocaine/EPI 1:200k 1% PF 10 ML VIAL INFILT ONE (15:37)
[2018-10-11] MEDS: Norepinephrine 4 MG in D5% in Water 250 ML IVC SCH (18:03)
[2018-10-12] MEDS: Insulin LISPRO 300 UNITS/3 ML VIAL SQ SCH ×4 (00:06→18:19)
[2018-10-12] MEDS: Vancomycin 500 MG, Sodium Chloride IRRigation 250 ML RC SCH ×3 (04:04→17:18)
[2018-10-12] MEDS: Ipratropium/Albuterol Neb 3 ML IH SCH ×6 (04:04→23:31)
[2018-10-12] MEDS: Artificial Tears SOLN 15 ML BOTTLE BOTH EYES SCH ×5 (04:05→20:14)
[2018-10-12 04:22] LABS: Basophils % 0.2 %; Eosinophils # 0.4 K/mcL (0.0-0.6); Eosinophils % 5.3 %; Hematocrit 24.7 % (37.5-50.1); Hemoglobin 7.8 g/dL (12.9-16.9); Immature Granulocytes % 0.8 % (0-4); Lymphocytes # 0.6 K/mcL (0.6-4.6); Lymphocytes % 9.3 %; Mean Corpuscular HGB Conc 31.6 g/dL (31.6-35.5); Mean Corpuscular Hemoglobin 28.4 pg (28.0-33.3); Mean Corpuscular Volume 89.8 fL (83.0-100.0); Mean Platelet Volume 9.9 fL (9.4-12.4); Monocytes # 0.7 K/mcL (0.0-1.3); Monocytes % 9.9 %; Platelet Count 101 K/mcL (140-400); Red Blood Count 2.75 M/mcL (4.19-5.50); Red Cell Distribution Width 16.3 % (11.5-14.5); Segmented Neutrophils % 74.5 %; White Blood Count 6.7 K/mcL (4.3-11.1)
[2018-10-12 04:22] LABS: VBG Ionized Calcium 1.07 mmol/L (1.15-1.35)
[2018-10-12 04:26] LABS: INR 1.4; Prothrombin Time 15.4 Seconds (9.4-12.1)
[2018-10-12 04:29] LABS: Activated Partial Thrombo Time 38.4 Seconds (26.0-36.0)
[2018-10-12 04:40] LABS: Calcium 7.6 mg/dL (8.6-10.3); Magnesium 2.1 mg/dL (1.6-2.6); Phosphorous 3.3 mg/dL (2.7-4.5); Potassium 4.2 mEq/L (3.5-5.1)
[2018-10-12 05:12] LABS: ABG Base Excess -3 mEq/L (-2 to 3); ABG HCO3 22 mEq/L (21-27); ABG Oxygen Saturation 98 % (95-98); ABG PCO2 37 mmHg (35-45); ABG PH 7.38 pH Units (7.32-7.45); ABG PO2 99 mmHg (85-104); ABG TCO2 23 mEq/L (20-26); Blood Gas Modality ASSIST CONTROL; Blood Gas PEEP 8 cm H2O; Blood Gas VT 420 cc
[2018-10-12] MEDS: Pantoprazole 40 MG VIAL IVP SCH (05:48)
[2018-10-12] MEDS: Calcium Gluconate 1gm/50mL 1 GM/50 ML BAG IVPB PRN (06:05)
[2018-10-12] MEDS ORDERED: Furosemide 40 MG/4 ML VIAL IVP ONE (08:00)
[2018-10-12] MEDS: Budesonide/Formoterol 160/4.5 1 PUFF INH IH SCH ×2 (08:11→19:40)
[2018-10-12] MEDS: FentaNYL (PF) 1,000 MCG in 0.9 % Sodium Chloride 80 ML IVC SCH (09:14)
[2018-10-12] MEDS: Chlorhexidine Rinse 15 ML MOUTHWASH MM SCH ×2 (09:14→20:12)
[2018-10-12] MEDS: Cefepime HCl 2,000 MG in Water for inj. (sterile) 20 ML IVP SCH ×2 (09:16→20:13)
[2018-10-12] MEDS: Vancomycin Oral Soln 125 MG/2.5 ML UDC PO SCH ×4 (09:17→20:12)
[2018-10-12] MEDS: MetroNIDAZOLE 500 MG/100 ML 500 MG/100 ML BAG IVPB SCH ×2 (09:17→17:18)
--- NOTE | 2018-10-12 11:06 | Pulmonology Progress Note ---
<Gricelda Salgadodevang Johnson - Last Filed: 10/12/18 16:10> Date of Encounter: 10/12/18 Time of Encounter: 11:06 Assessment and Plan (1) Acute MN Current Visit: Yes Status: Acute * Patient found to have significant elevation in his troponin with troponin less than upper limit of normal at [facility] and upon arrival to [place] was found to have troponin of 30.22 and repeat 30.47 * Echocardiogram limited was obtained which shows EF of 25% which is a signi ficant drop from previous in 05/30/18 which had a EF of 60-65% * The patient does have a long history of cardiac disease and has undergone CABG prior * Patient underwent catheterization and a bare metal stent was placed in the saphenous venous graft OM1 on 10/10/18 * Continuing on aspirin and Plavix * We will continue to hold heparin given patient's recent transfusion, concern for continued bleeding * Continuing on dopamine and levophed for hypotension and to improve cardiac perfusion Qualifiers: Involved coronary artery: unspecified coronary artery Qualified Code(s): I21.9 - Acute myocardial infarction, unspecified (2) C. difficile diarrhea Current Visit: Yes Status: Suspected * Per family this started as an outpatient. * Will continue with oral Flagyl and vancomycin, continuing * Patient is C. diff positive on lab draw but culture negative * CT abdomen/pelvis shows large bilateral effusions, cirrhotic morphology of the liver with mild splenomegaly along with ascites. There is no evidence of toxic megacolon, there is wall thickening of the sigmoid colon (3) Acute exacerbation of CHF (congestive heart failure) Current Visit: Yes Status: Acute * Patient had acute decompensation of his heart failure likely secondary to subacute versus acute myocardial infarction * EF on limited echo was 25%, of a significant decrease from May 2018 when it was 60-65% * Will continue with diuresis, Lasix 40mg IV today * Continues to remain ventilated and sedated but responsive Qualifiers: Heart failure type: diastolic Qualified Code(s): I50.33 - Acute on chronic diastolic (congestive) heart failure (4) Acute on chronic kidney failure Current Visit: Yes Status: Acute * Patient continues to have worsening renal function * Creatinine elevated to 1.96, improved urinary output yesterday, will give lasix today to attempt to improve output, will continue to monitor Qualifiers: Acute renal failure type: unspecified Chronic kidney disease stage: unspecified stage Qualified Code(s): N17.9 - Acute kidney failure, unspecified; N18.9 - Chronic kidney disease, unspecified (5) Chronic venous hypertension w/ulcer and inflammation involv both sides Current Visit: Yes Status: Chronic * Infectious disease and wound care following, right lower extremity has area dressed and appears dry * Podiatry consulted and evaluated * Left BKA (6) Acute on chronic blood loss anemia Current Visit: Yes Status: Acute * Does appear to have chronic anemia at baseline, appears to have hemoglobin of approximately 8-9 * Patient received 2 units packed red blood cells, todays hemoglobin stable at 7.8, will continue to monitor (7) Pneumonia Current Visit: Yes Status: Acute * Sputum shows no growth at this time * Continue with cefepime and vancomycin, infectious disease following and appreciate their recommendations * Likely consolidation is predominantly effusion but at this point cannot rule out infection therefore will continue with antibiotic Qualifiers: Pneumonia type: due to unspecified organism Laterality: unspecified laterality Lung location: unspecified part of lung Qualified Code(s): J18.9 - Pneumonia, unspecified organism (8) COPD (chronic obstructive pulmonary disease) Current Visit: Yes Status: Acute * Continue with bronchodilators Qualifiers: COPD type: unspecified COPD Qualified Code(s): J44.9 - Chronic obstructive pulmonary disease, unspecified (9) Right foot ulcer Current Visit: Yes Status: Chronic * Per podiatry recommendations * Patient grew 10/08/18 GNR - gistory of staph aureus and pseudomonas * On vancomycin, cefepime Qualifiers: Non-pressure ulcer stage: limited to breakdown of skin Qualified Code(s): L97.511 - Non-pressure chronic ulcer of other part of right foot limited to breakdown of skin (10) Hypertension Current Visit: Yes Status: Chronic * Home meds held given hypotension Qualifiers: Hypertension type: essential hypertension Qualified Code(s): I10 - Essential (primary) hypertension (11) DVT prophylaxis Current Visit: Yes Status: Acute * Given high risk for bleeding continue on EPCDs Subjective Interval history: Today the patient remains sedated and intubated. He does open his eyes and answer questions by nodding his head yes or no. Objective PUL Vital signs: Last Vital Signs Temp 99.4 F 10/12/18 07:35 Pulse 81 07/14/19 10:00 Resp 18 10/12/18 10:00 BP 119/49 10/12/18 10:00 Pulse Ox 98 10/12/18 10:00 General appearance: no acute distress, alert Eyes: nonicteric Effort: normal Auscultation: bilateral: diminished breath sounds Cardiovascular: regular rate and rhythm Gastrointestinal: normoactive bowel sounds, non-tender, non-distended Integumentary: normal Extremities: no cyanosis, edema (1+) Musculoskeletal: no deformities non-focal exam, pupils equal and round Ventilator Settings Ventilator Settings: Ventilator Settings, Last 8 Hours Ventilator Tidal Volume 420 Setting Ventilator Tidal Volume 420 Setting Ventilator Tidal Volume 420 Setting Ventilator Tidal Volume 420 Setting Ventilator Tidal Volume 420 Setting Ventilator Tidal Volume 420 Setting Ventilator Tidal Volume 420 Setting Ventilator Tidal Volume 420 Setting Ventilator Tidal Volume 420 Setting Ventilator Tidal Volume 420 Setting Ventilator Tidal Volume 420 Setting Ventilator Respiratory Rate 18 Setting Ventilator Respiratory Rate 18 Setting Ventilator Respiratory Rate 18 Setting Ventilator Respiratory Rate 18 Setting Ventilator Respiratory Rate 18 Setting Ventilator Respiratory Rate 18 Setting Ventilator Respiratory Rate 18 Setting Ventilator Respiratory Rate 18 Setting Ventilator Respiratory Rate 18 Setting Ventilator Respiratory Rate 18 Setting Ventilator Respiratory Rate 18 Setting Actual Respiratory Rate 18 Actual Respiratory Rate 18 Actual Respiratory Rate 18 Actual Respiratory Rate 18 Actual Respiratory Rate 18 Actual Respiratory Rate 18 Actual Respiratory Rate 18 Actual Respiratory Rate 18 Actual Respiratory Rate 18 Actual Respiratory Rate 18 Positive End Expiratory 8 Pressure Positive End Expiratory 8 Pressure Positive End Expiratory 8 Pressure Positive End Expiratory 8 Pressure Positive End Expiratory 8 Pressure Positive End Expiratory 8 Pressure Positive End Expiratory 8 Pressure Positive End Expiratory 8 Pressure Positive End Expiratory 8 Pressure Positive End Expiratory 8 Pressure Positive End Expiratory 8 Pressure Peak Inspiratory Airway 28 Pressure Peak Inspiratory Airway 27 Pressure Peak Inspiratory Airway 27 Pressure Peak Inspiratory Airway 28 Pressure Peak Inspiratory Airway 27 Pressure Peak Inspiratory Airway 27 Pressure Peak Inspiratory Airway 26 Pressure Peak Inspiratory Airway 26 Pressure Peak Inspiratory Airway 28 Pressure Peak Inspiratory Airway 26 Pressure Results - Laboratory Findings CBC and BMP: 10/12/18 03:55 10/12/18 03:55 ABG ABG pH 7.38 pH Units (7.32-7.45) 10/12/18 05:09 ABG pCO2 37 mmHg (35-45) 10/12/18 05:09 ABG pO2 99 mmHg (85-104) 10/12/18 05:09 ABG O2 Saturation 98 % (95-98) 10/12/18 05:09 PT/INR, D-dimer PT 15.4 Seconds (9.4-12.1) H 07/14/19 03:55 Abnormal lab findings: Abnormal lab results WBC 15.7 K/mcL (4.3-11.1) H 10/09/18 22:18 RBC 2.75 M/mcL (4.19-5.50) L 10/12/18 03:55 Hgb 7.8 g/dL (12.9-16.9) L 10/12/18 03:55 Hct 24.7 % (37.5-50.1) L 10/12/18 03:55 MCHC 31.4 g/dL (31.6-35.5) L 10/10/18 17:15 RDW 16.3 % (11.5-14.5) H 10/12/18 03:55 Plt Count 101 K/mcL (140-400) L 10/12/18 03:55 Band Neutrophils % 70.0 % (0-4) H 10/09/18 22:18 Neutrophils # 9.6 K/mcL (1.6-8.9) H 10/10/18 04:00 Lymphocytes # 0.5 K/mcL (0.6-4.6) L 10/11/18 04:05 ESR 79 mm/hr (0-10) H 10/10/18 18:56 PT 15.4 Seconds (9.4-12.1) H 10/12/18 03:55 APTT 38.4 Seconds (26.0-36.0) H 10/12/18 03:55 Fibrinogen 465 mg/dL (169-393) H 10/10/18 17:15 Heparin Anti-Xa, Unfract 0.26 IU/mL (0.30-0.70) L 10/09/18 22:18 ABG pO2 52 mmHg (85-104) L 10/10/18 04:35 ABG O2 Saturation 87 % (95-98) L 10/10/18 04:35 ABG Base Excess -3 mEq/L (-2 to 3) L 10/12/18 05:09 VBG pO2 69 mmHg (25-50) H 10/09/18 22:28 Sodium 134 mEq/L (136-145) L 10/12/18 03:55 Carbon Dioxide 22 mEq/L (23-29) L 10/12/18 03:55 BUN 25 mg/dL (8-23) H 10/12/18 03:55 Creatinine 1.96 mg/dL (0.70-1.30) H 10/12/18 03:55 Est GFR ( Amer) 42 (> 60) L 10/12/18 03:55 Est GFR (Non-Af Amer) 35 (> 60) L 10/12/18 03:55 Glucose 134 mg/dL (70-105) H 10/12/18 03:55 POC Glucose 134 mg/dL (70-99) H 10/11/18 23:52 Calcium 7.6 mg/dL (8.6-10.3) L 10/12/18 03:55 Venous Ioniz Calcium 1.07 mmol/L (1.15-1.35) L 10/12/18 04:17 AST 66 Units/L (13-39) H 10/09/18 22:18 Lactate Dehydrogenase 286 Units/L (140-271) H 10/10/18 19:23 Troponin I 31.20 ng/mL (< 0.04) H* 10/10/18 12:00 C-Reactive Protein 209 mg/L (Less than 10) H 10/10/18 19:23 B-Natriuretic Peptide 868 pg/mL (Less than 100) H 10/09/18 22:18 Albumin 2.9 g/dL (3.5-5.7) L 10/09/18 22:18 Globulin 4.3 g/dL (2.4-3.5) H 10/09/18 22:18 Albumin/Globulin Ratio 0.7 (1.1-2.2) L 10/09/18 22:18 Procalcitonin 53.10 ng/mL (0.00-0.15) H 10/10/18 05:00 Urine Clarity Cloudy (Clear) A 10/10/18 00:42 Urine Protein >=300 mg/dL (Neg-Trace) H 10/10/18 00:42 Urine Ketones Trace mg/dL (Negative) H 10/10/18 00:42 Urine Blood Trace (Negative) H 10/10/18 00:42 Urine Bilirubin Moderate (Negative) H 10/10/18 00:42 Urine Microscopic RBC 3-5 per hpf (0-3) H 10/10/18 00:42 Urine Microscopic WBC 5-15 per hpf (0-3) H 10/10/18 00:42 Ur Squamous Epith Cells Many per lpf (None-Few) H 10/10/18 00:42 Hyaline Casts Many per lpf (None-Few) H 10/10/18 00:42 Nasal Screen MRSA (PCR) Positive (Negative) A 10/09/18 22:59 Stl C.diff Tox A&B Gene DETECTED (Not detect) A 10/09/18 13:59 Vancomycin Trough 23 mcg/mL (5-10) H 10/12/18 03:55 Crossmatch See Detail 10/09/18 22:18 - Microbiology Findings Microbiology Findings: Microbiology, Last 48 Hours 10/09/18 13:59 Clostridium difficile Toxin A & B - Final Stool 10/09/18 22:59 Nasal Screen MRSA/MSSA - Final Nose - Clinical Findings Intake & Output: Intake & Output 10/11/18 10/12/18 10/12/18 23:59 07:59 15:59 Intake Total 677 / 2083 738 / 838 100 / 838 Output Total 700 / 1585 805 / 805 Balance -23 / 498 -67 / 33 100 / 33 Weight 119.6 kg Consult Discharge Plan - Plan Referrals: NONE,PCP [Primary Care Provider] - <Maria Elena Becerra - Last Filed: 10/12/18 17:39> Date of Encounter: 10/12/18 Objective PUL Vital signs: Last Vital Signs Temp 98.0 F 10/12/18 15:00 Pulse 75 10/12/18 15:00 Resp 18 10/12/18 16:16 BP 119/54 10/12/18 15:00 Pulse Ox 98 10/12/18 16:16 Ventilator Settings Ventilator Settings: Ventilator Settings, Last 8 Hours Ventilator Tidal Volume 420 Setting Ventilator Tidal Volume 420 Setting Ventilator Tidal Volume 420 Setting Ventilator Tidal Volume 420 Setting Ventilator Tidal Volume 420 Setting Ventilator Tidal Volume 420 Setting Ventilator Tidal Volume 420 Setting Ventilator Tidal Volume 420 Setting Ventilator Respiratory Rate 18 Setting Ventilator Respiratory Rate 18 Setting Ventilator Respiratory Rate 18 Setting Ventilator Respiratory Rate 18 Setting Ventilator Respiratory Rate 18 Setting Ventilator Respiratory Rate 18 Setting Ventilator Respiratory Rate 18 Setting Ventilator Respiratory Rate 18 Setting Actual Respiratory Rate 18 Actual Respiratory Rate 18 Actual Respiratory Rate 18 Actual Respiratory Rate 18 Actual Respiratory Rate 18 Actual Respiratory Rate 18 Actual Respiratory Rate 18 Actual Respiratory Rate 18 Positive End Expiratory 8 Pressure Positive End Expiratory 8 Pressure Positive End Expiratory 8 Pressure Positive End Expiratory 8 Pressure Positive End Expiratory 8 Pressure Positive End Expiratory 8 Pressure Positive End Expiratory 8 Pressure Positive End Expiratory 8 Pressure Peak Inspiratory Airway 32 Pressure Peak Inspiratory Airway 31 Pressure Peak Inspiratory Airway 30 Pressure Peak Inspiratory Airway 30 Pressure Peak Inspiratory Airway 30 Pressure Peak Inspiratory Airway 28 Pressure Peak Inspiratory Airway 30 Pressure Peak Inspiratory Airway 28 Pressure Results - Laboratory Findings CBC and BMP: 10/12/18 03:55 10/12/18 03:55 ABG ABG pH 7.38 pH Units (7.32-7.45) 10/12/18 05:09 ABG pCO2 37 mmHg (35-45) 10/12/18 05:09 ABG pO2 99 mmHg (85-104) 10/12/18 05:09 ABG O2 Saturation 98 % (95-98) 10/12/18 05:09 PT/INR, D-dimer PT 15.4 Seconds (9.4-12.1) H 10/12/18 03:55 Abnormal lab findings: Abnormal lab results WBC 15.7 K/mcL (4.3-11.1) H 10/09/18 22:18 RBC 2.75 M/mcL (4.19-5.50) L 10/12/18 03:55 Hgb 7.8 g/dL (12.9-16.9) L 10/12/18 03:55 Hct 24.7 % (37.5-50.1) L 10/12/18 03:55 MCHC 31.4 g/dL (31.6-35.5) L 10/10/18 17:15 RDW 16.3 % (11.5-14.5) H 10/12/18 03:55 Plt Count 101 K/mcL (140-400) L 10/12/18 03:55 Band Neutrophils % 70.0 % (0-4) H 10/09/18 22:18 Neutrophils # 9.6 K/mcL (1.6-8.9) H 10/10/18 04:00 Lymphocytes # 0.5 K/mcL (0.6-4.6) L 10/11/18 04:05 ESR 79 mm/hr (0-10) H 10/10/18 18:56 PT 15.4 Seconds (9.4-12.1) H 10/12/18 03:55 APTT 38.4 Seconds (26.0-36.0) H 10/12/18 03:55 Fibrinogen 465 mg/dL (169-393) H 10/10/18 17:15 Heparin Anti-Xa, Unfract 0.26 IU/mL (0.30-0.70) L 10/09/18 22:18 ABG pO2 52 mmHg (85-104) L 10/10/18 04:35 ABG O2 Saturation 87 % (95-98) L 10/10/18 04:35 ABG Base Excess -3 mEq/L (-2 to 3) L 10/12/18 05:09 VBG pO2 69 mmHg (25-50) H 10/09/18 22:28 Sodium 134 mEq/L (136-145) L 10/12/18 03:55 Carbon Dioxide 22 mEq/L (23-29) L 10/12/18 03:55 BUN 25 mg/dL (8-23) H 10/12/18 03:55 Creatinine 1.96 mg/dL (0.70-1.30) H 10/12/18 03:55 Est GFR ( Amer) 42 (> 60) L 10/12/18 03:55 Est GFR (Non-Af Amer) 35 (> 60) L 10/12/18 03:55 Glucose 134 mg/dL (70-105) H 10/12/18 03:55 POC Glucose 134 mg/dL (70-99) H 10/11/18 23:52 Calcium 7.6 mg/dL (8.6-10.3) L 10/12/18 03:55 Venous Ioniz Calcium 1.07 mmol/L (1.15-1.35) L 10/12/18 04:17 AST 66 Units/L (13-39) H 10/09/18 22:18 Lactate Dehydrogenase 286 Units/L (140-271) H 10/10/18 19:23 Troponin I 31.20 ng/mL (< 0.04) H* 10/10/18 12:00 C-Reactive Protein 209 mg/L (Less than 10) H 10/10/18 19:23 B-Natriuretic Peptide 868 pg/mL (Less than 100) H 10/09/18 22:18 Albumin 2.9 g/dL (3.5-5.7) L 10/09/18 22:18 Globulin 4.3 g/dL (2.4-3.5) H 10/09/18 22:18 Albumin/Globulin Ratio 0.7 (1.1-2.2) L 10/09/18 22:18 Procalcitonin 53.10 ng/mL (0.00-0.15) H 10/10/18 05:00 Urine Clarity Cloudy (Clear) A 10/10/18 00:42 Urine Protein >=300 mg/dL (Neg-Trace) H 10/10/18 00:42 Urine Ketones Trace mg/dL (Negative) H 10/10/18 00:42 Urine Blood Trace (Negative) H 10/10/18 00:42 Urine Bilirubin Moderate (Negative) H 10/10/18 00:42 Urine Microscopic RBC 3-5 per hpf (0-3) H 10/10/18 00:42 Urine Microscopic WBC 5-15 per hpf (0-3) H 10/10/18 00:42 Ur Squamous Epith Cells Many per lpf (None-Few) H 10/10/18 00:42 Hyaline Casts Many per lpf (None-Few) H 10/10/18 00:42 Nasal Screen MRSA (PCR) Positive (Negative) A 10/09/18 22:59 Stl C.diff Tox A&B Gene DETECTED (Not detect) A 10/09/18 13:59 Vancomycin Trough 23 mcg/mL (5-10) H 10/12/18 03:55 Crossmatch See Detail 10/09/18 22:18 - Microbiology Findings Microbiology Findings: Microbiology, Last 48 Hours 10/09/18 13:59 Clostridium difficile Toxin A & B - Final Stool - Clinical Findings Intake & Output: Intake & Output 10/12/18 10/12/18 10/12/18 07:59 15:59 23:59 Intake Total 738 / 1349 611 / 1349 Output Total 805 / 895 90 / 895 Balance -67 / 454 521 / 454 Weight 119.6 kg - Attending Attestation I saw and evaluated this patient and my medical decision-making was reviewed with the Resident Physician. I agree with the documented findings, disposition and treatment plan as described except to the extent set forth below. We independently had [id number] contact with the patient I spent 40 minutes of Critical Care time with this patient. It involved decision making of high complexity to assess, manipulate, and support vital organ system failure and/or to prevent further life threatening deterioration of the patient's condition. The time involved in the performance of separately reportable procedures was not counted toward critical care time. Patient seen and examined at bedside Labs, radiology, chart personally reviewed. Management was reviewed during multidisciplinary critical care rounds. 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 Cards: Patient had acute MN with systolic dysfunction most likely some myocardium with the systolic heart failure with anasarca patient is still encouraging shock complicated by sepsis most likely ejection fraction was depressed patient is on dopamine and mild dose of LevoPHED . With anasarca with his inotropic support very difficult to measure volume status. This denies illicit duration a [place] will help but will do gentle diuresis in spite of inotropic therapy. FEN-GI: Nutrition according to dietary Renal: Labs and output were reviewed acute kidney injury ATN versus cardiac cardiorenal syndrome will try a trial of Lasix and will follow GFR ID: To cover with broad-spectrum antibiotics de-escalate according to clinical response Heme/Onc: Labs were reviewed Endo: Glucose Monitored Integ/MSK: Skin Care per routine ICU Nursing Protocol to prevent ulcers. Lines: All lines examined without evidence of infection : Dispo: critically ill CODE: Ful Code
[2018-10-12] MEDS: Norepinephrine 4 MG in D5% in Water 250 ML IVC SCH (13:04)
[2018-10-13] MEDS: Insulin LISPRO 300 UNITS/3 ML VIAL SQ SCH ×5 (00:08→23:46)
[2018-10-13] MEDS: Vancomycin 500 MG, Sodium Chloride IRRigation 250 ML RC SCH ×4 (00:10→15:14)
[2018-10-13] MEDS: Artificial Tears SOLN 15 ML BOTTLE BOTH EYES SCH ×7 (00:10→23:33)
[2018-10-13] MEDS: MetroNIDAZOLE 500 MG/100 ML 500 MG/100 ML BAG IVPB SCH ×4 (00:11→23:33)
[2018-10-13 03:57] LABS: Hemoglobin 7.8 g/dL (12.9-16.9); Mean Corpuscular Hemoglobin 28.6 pg (28.0-33.3); Red Blood Count 2.73 M/mcL (4.19-5.50)
[2018-10-13 03:58] LABS: VBG Ionized Calcium 1.11 mmol/L (1.15-1.35)
[2018-10-13 03:59] LABS: Basophils % 0.2 %; Eosinophils # 0.3 K/mcL (0.0-0.6); Eosinophils % 4.5 %; Hematocrit 24.4 % (37.5-50.1); Immature Granulocytes % 0.5 % (0-4); Immature Platelets 2.2 % (1.1-6.1); Lymphocytes % 17.8 %; Mean Corpuscular Volume 89.4 fL (83.0-100.0); Monocytes # 0.6 K/mcL (0.0-1.3); Monocytes % 9.6 %; Platelet Count 103 K/mcL (140-400); Red Cell Distribution Width 16.5 % (11.5-14.5); Segmented Neutrophils % 67.4 %; White Blood Count 5.7 K/mcL (4.3-11.1)
[2018-10-13 04:00] LABS: Neutrophils # 3.8 K/mcL (1.6-8.9)
[2018-10-13 04:02] LABS: INR 1.4; Prothrombin Time 15.9 Seconds (9.4-12.1)
[2018-10-13 04:05] LABS: Activated Partial Thrombo Time 43.1 Seconds (26.0-36.0); Sodium, Urine 14.5 mEq/L
[2018-10-13] MEDS: Ipratropium/Albuterol Neb 3 ML IH SCH ×7 (04:06→23:19)
[2018-10-13 04:18] LABS: Calcium 7.5 mg/dL (8.6-10.3); Magnesium 2.2 mg/dL (1.6-2.6); Phosphorous 3.4 mg/dL (2.7-4.5); Potassium 3.9 mEq/L (3.5-5.1)
[2018-10-13 04:19] LABS: Albumin 2.3 g/dL (3.5-5.7); Albumin/Globulin Ratio 0.6 (1.1-2.2); Bilirubin,Direct 0.2 mg/dL (0.0-0.2); Bilirubin,Indirect 0.3 mg/dL (0.0-1.2); Bilirubin,Total 0.5 mg/dL (0.3-1.0); Globulin 3.6 g/dL (2.4-3.5); Total Protein 5.9 g/dL (6.4-8.9)
[2018-10-13 04:38] LABS: ABG Base Excess -3 mEq/L (-2 to 3); ABG HCO3 21 mEq/L (21-27); ABG Oxygen Saturation 98 % (95-98); ABG PCO2 34 mmHg (35-45); ABG PO2 95 mmHg (85-104); ABG TCO2 22 mEq/L (20-26); Blood Gas Modality ASSIST CONTROL; Blood Gas PEEP 8 cm H2O; Blood Gas VT 420 cc
[2018-10-13] MEDS: Pantoprazole 40 MG VIAL IVP SCH (07:12)
[2018-10-13] MEDS: FentaNYL (PF) 1,000 MCG in 0.9 % Sodium Chloride 80 ML IVC SCH (07:15)
[2018-10-13] MEDS: Budesonide/Formoterol 160/4.5 1 PUFF INH IH SCH ×2 (07:36→19:59)
--- NOTE | 2018-10-13 07:48 | Pulmonology Progress Note ---
<Fany Dominguez - Last Filed: 10/13/18 17:12> Date of Encounter: 10/13/18 Time of Encounter: 07:48 Assessment and Plan (1) Acute [place] Current Visit: Yes Status: Acute Patient found to have significant elevation in his troponin with troponin less than upper limit of normal at [facility] and upon arrival to [place] was found to have troponin of 30.22 and repeat 30.47 Echocardiogram limited was obtained which shows EF of 25% which is a significant drop from previous in 06/19/18 which had a EF of 60-65% The patient does have a long history of cardiac disease and has undergone CABG in 2001 Patient underwent catheterization and a bare metal stent was placed in the saphenous venous graft OM1 on 10/10/18 Continuing on aspirin and Plavix We will continue to hold heparin given patient's recent transfusion, concern for continued bleeding Continuing on dopamine for hypotension and to improve cardiac perfusion - DC levophed Qualifiers: Involved coronary artery: unspecified coronary artery Qualified Code(s): I21.9 - Acute myocardial infarction, unspecified (2) C. difficile diarrhea Current Visit: Yes Status: Suspected Per family this started as an outpatient. Will continue with oral Flagyl and vancomycin orally and rectally Patient is C. diff positive on lab draw but culture negative C. diff toxin negative CT abdomen/pelvis shows large bilateral effusions, cirrhotic morphology of the liver with mild splenomegaly along with ascites. There is no evidence of toxic megacolon, but there is wall thickening of the sigmoid colon Pt has not had diarrhea for 3 days (3) Acute exacerbation of CHF (congestive heart failure) Current Visit: Yes Status: Acute Patient had acute decompensation of his heart failure likely secondary to subacute versus acute myocardial infarction EF on limited echo was 25%, of a significant decrease from May 2018 when it was 60-65% Will continue with diuresis as kidneys can tolerate Continues to remain ventilated and sedated but responsive CXR shows slightly improving pulmonary edema Continue other treatment as above Qualifiers: Heart failure type: systolic Qualified Code(s): I50.23 - Acute on chronic systolic (congestive) heart failure (4) Acute on chronic kidney failure Current Visit: Yes Status: Acute CKD stage 3 with baseline Cre appx 1.5 Kidney function continues to decline Cre today 2.44 Improved urinary output 2 days ago, but urine output yesterday was decreased Lasix given yesterday without significant effect Consultation to nephrology was placed today Continue to avoid nephrotoxic agents Will transfuse one unit of blood to increase hgb towards 10 without increasing volume overloaded status Repeat CBC and bmp for 1700 Qualifiers: Acute renal failure type: unspecified Chronic kidney disease stage: stage 3 (moderate) Qualified Code(s): N17.9 - Acute kidney failure, unspecified; N18.3 - Chronic kidney disease, stage 3 (moderate) (5) Chronic venous hypertension w/ulcer and inflammation involv both sides Current Visit: Yes Status: Chronic ID, podiatry and wound care following, appreciate recommendations RLE with dressing C/D/I Left BKA (6) Acute on chronic blood loss anemia Current Visit: Yes Status: Acute Chronic anemia at baseline of 8-9 Pt received 2 units PRBCs Hemoglobin stable after Cath, continue to monitor Hgb today 7.8 (7) Pneumonia Current Visit: Yes Status: Acute Sputum cultures with NGTD Procal significantly elevated at 53.1 Continue Cefepime and Vancomycin ID following - appreciate recommendations Consolidation is likely pleural effusion but cannot rule out PNA at this time Qualifiers: Pneumonia type: due to unspecified organism Laterality: unspecified laterality Lung location: unspecified part of lung Qualified Code(s): J18.9 - Pneumonia, unspecified organism (8) COPD (chronic obstructive pulmonary disease) Current Visit: Yes Status: Acute Continue Duonebs q4H, Symbicort and Singulair Qualifiers: COPD type: unspecified COPD Qualified Code(s): J44.9 - Chronic obstructive pulmonary disease, unspecified (9) Right foot ulcer Current Visit: Yes Status: Chronic Podiatry following - appreciate recommendations Pt grew GNR from swab on 10/08/18 - Hx of Staph aureus and pseudomonas On Vanc and Cefepime Qualifiers: Non-pressure ulcer stage: limited to breakdown of skin Qualified Code(s): L97.511 - Non-pressure chronic ulcer of other part of right foot limited to breakdown of skin (10) Hypertension Current Visit: Yes Status: Chronic Home meds held secondary to hypotension Qualifiers: Hypertension type: essential hypertension Qualified Code(s): I10 - Essential (primary) hypertension (11) Diabetes Current Visit: Yes Status: Chronic Continue home meds Continue Accu-Cheks q6H Low dose SSI Qualifiers: Diabetes mellitus type: type 2 Diabetes mellitus rn long term care insulin use: with nursing home use Diabetes mellitus complication status: with skin complications Diabetes mellitus complication detail: with foot ulcer Qualified Code(s): E11.621 - Type 2 diabetes mellitus with foot ulcer; L97.509 - Non-pressure chronic ulcer of other part of unspecified foot with unspecified severity; Z79.4 - retirement (current) use of insulin (12) DVT prophylaxis Current Visit: Yes Status: Acute Will start SQ Heparin and continue to monitor Hgb Subjective Interval history: Pt remains intubated but is awake and responds to stimuli. Will DC Levophed as BPs have been stable, continue Dopamine as needed for pressure support. Renal function is worsening therefore we will consult nephrology for help with diuresis and improvement in kidney function. Objective PUL Vital signs: Last Vital Signs Temp 97.5 F L 10/13/18 04:00 Pulse 68 10/13/18 07:00 Resp 14 10/13/18 07:36 BP 117/67 10/13/18 07:00 Pulse Ox 100 10/13/18 07:36 General appearance: no acute distress, alert Eyes: nonicteric Effort: normal Auscultation: bilateral: diminished breath sounds, rhonchi (diffuse) Cardiovascular: regular rate and rhythm Gastrointestinal: soft, non-tender Integumentary: normal Extremities: no cyanosis, edema (2+ of RLE with wound dressing on RLE, C/D/I. Left BKA) other (alert and responds appropriately to stimuli) Ventilator Settings Ventilator Settings: Ventilator Settings, Last 8 Hours Ventilator Tidal Volume 450 Setting Ventilator Tidal Volume 450 Setting Ventilator Tidal Volume 420 Setting Ventilator Tidal Volume 420 Setting Ventilator Tidal Volume 420 Setting Ventilator Tidal Volume 420 Setting Ventilator Tidal Volume 420 Setting Ventilator Tidal Volume 420 Setting Ventilator Tidal Volume 420 Setting Ventilator Tidal Volume 420 Setting Ventilator Tidal Volume 420 Setting Ventilator Tidal Volume 420 Setting Ventilator Tidal Volume 420 Setting Ventilator Respiratory Rate 14 Setting Ventilator Respiratory Rate 14 Setting Ventilator Respiratory Rate 18 Setting Ventilator Respiratory Rate 18 Setting Ventilator Respiratory Rate 18 Setting Ventilator Respiratory Rate 18 Setting Ventilator Respiratory Rate 18 Setting Ventilator Respiratory Rate 18 Setting Ventilator Respiratory Rate 18 Setting Ventilator Respiratory Rate 18 Setting Ventilator Respiratory Rate 18 Setting Ventilator Respiratory Rate 18 Setting Ventilator Respiratory Rate 18 Setting Actual Respiratory Rate 14 Actual Respiratory Rate 14 Actual Respiratory Rate 18 Actual Respiratory Rate 18 Actual Respiratory Rate 18 Actual Respiratory Rate 18 Actual Respiratory Rate 18 Actual Respiratory Rate 18 Actual Respiratory Rate 18 Actual Respiratory Rate 18 Actual Respiratory Rate 18 Actual Respiratory Rate 18 Positive End Expiratory 5 Pressure Positive End Expiratory 5 Pressure Positive End Expiratory 8 Pressure Positive End Expiratory 8 Pressure Positive End Expiratory 8 Pressure Positive End Expiratory 8 Pressure Positive End Expiratory 8 Pressure Positive End Expiratory 8 Pressure Positive End Expiratory 8 Pressure Positive End Expiratory 8 Pressure Positive End Expiratory 8 Pressure Positive End Expiratory 8 Pressure Positive End Expiratory 8 Pressure Peak Inspiratory Airway 30 Pressure Peak Inspiratory Airway 30 Pressure Peak Inspiratory Airway 29 Pressure Peak Inspiratory Airway 29 Pressure Peak Inspiratory Airway 29 Pressure Peak Inspiratory Airway 27 Pressure Peak Inspiratory Airway 29 Pressure Peak Inspiratory Airway 28 Pressure Peak Inspiratory Airway 28 Pressure Peak Inspiratory Airway 28 Pressure Peak Inspiratory Airway 29 Pressure Peak Inspiratory Airway 29 Pressure Results - Laboratory Findings CBC and BMP: 10/13/18 03:40 10/13/18 03:40 ABG ABG pH 7.40 pH Units (7.32-7.45) 10/13/18 04:36 ABG pCO2 34 mmHg (35-45) L 10/13/18 04:36 ABG pO2 95 mmHg (85-104) 10/13/18 04:36 ABG O2 Saturation 98 % (95-98) 10/13/18 04:36 PT/INR, D-dimer PT 15.9 Seconds (9.4-12.1) H 10/13/18 03:40 Abnormal lab findings: Abnormal lab results WBC 15.7 K/mcL (4.3-11.1) H 10/09/18 22:18 RBC 2.73 M/mcL (4.19-5.50) L 10/13/18 03:40 Hgb 7.8 g/dL (12.9-16.9) L 10/13/18 03:40 Hct 24.4 % (37.5-50.1) L 10/13/18 03:40 MCHC 31.4 g/dL (31.6-35.5) L 10/10/18 17:15 RDW 16.5 % (11.5-14.5) H 10/13/18 03:40 Plt Count 103 K/mcL (140-400) L 10/13/18 03:40 Band Neutrophils % 70.0 % (0-4) H 10/09/18 22:18 Neutrophils # 9.6 K/mcL (1.6-8.9) H 10/10/18 04:00 Lymphocytes # 0.5 K/mcL (0.6-4.6) L 10/11/18 04:05 ESR 79 mm/hr (0-10) H 10/10/18 18:56 PT 15.9 Seconds (9.4-12.1) H 10/13/18 03:40 APTT 43.1 Seconds (26.0-36.0) H 10/13/18 03:40 Fibrinogen 465 mg/dL (169-393) H 10/10/18 17:15 Heparin Anti-Xa, Unfract 0.26 IU/mL (0.30-0.70) L 10/09/18 22:18 ABG pCO2 34 mmHg (35-45) L 10/13/18 04:36 ABG pO2 52 mmHg (85-104) L 10/10/18 04:35 ABG O2 Saturation 87 % (95-98) L 10/10/18 04:35 ABG Base Excess -3 mEq/L (-2 to 3) L 10/13/18 04:36 VBG pO2 69 mmHg (25-50) H 10/09/18 22:28 Sodium 134 mEq/L (136-145) L 10/13/18 03:40 Carbon Dioxide 22 mEq/L (23-29) L 10/13/18 03:40 BUN 27 mg/dL (8-23) H 10/13/18 03:40 Creatinine 2.44 mg/dL (0.70-1.30) H 10/13/18 03:40 Est GFR ( Amer) 33 (> 60) L 10/13/18 03:40 Est GFR (Non-Af Amer) 27 (> 60) L 10/13/18 03:40 Glucose 129 mg/dL (70-105) H 10/13/18 03:40 POC Glucose 159 mg/dL (70-99) H 10/12/18 23:27 Calcium 7.5 mg/dL (8.6-10.3) L 10/13/18 03:40 Venous Ioniz Calcium 1.11 mmol/L (1.15-1.35) L 10/13/18 03:55 AST 66 Units/L (13-39) H 10/09/18 22:18 Lactate Dehydrogenase 286 Units/L (140-271) H 10/10/18 19:23 Troponin I 31.20 ng/mL (< 0.04) H* 10/10/18 12:00 C-Reactive Protein 209 mg/L (Less than 10) H 10/10/18 19:23 B-Natriuretic Peptide 868 pg/mL (Less than 100) H 10/09/18 22:18 Serum Total Protein 5.9 g/dL (6.4-8.9) L 10/13/18 03:40 Albumin 2.3 g/dL (3.5-5.7) L 10/13/18 03:40 Globulin 3.6 g/dL (2.4-3.5) H 10/13/18 03:40 Albumin/Globulin Ratio 0.6 (1.1-2.2) L 10/13/18 03:40 Procalcitonin 53.10 ng/mL (0.00-0.15) H 10/10/18 05:00 Urine Clarity Cloudy (Clear) A 10/10/18 00:42 Urine Protein >=300 mg/dL (Neg-Trace) H 10/10/18 00:42 Urine Ketones Trace mg/dL (Negative) H 10/10/18 00:42 Urine Blood Trace (Negative) H 10/10/18 00:42 Urine Bilirubin Moderate (Negative) H 10/10/18 00:42 Urine Microscopic RBC 3-5 per hpf (0-3) H 10/10/18 00:42 Urine Microscopic WBC 5-15 per hpf (0-3) H 10/10/18 00:42 Ur Squamous Epith Cells Many per lpf (None-Few) H 10/10/18 00:42 Hyaline Casts Many per lpf (None-Few) H 10/10/18 00:42 Nasal Screen MRSA (PCR) Positive (Negative) A 10/09/18 22:59 Stl C.diff Tox A&B Gene DETECTED (Not detect) A 10/09/18 13:59 Vancomycin Trough 23 mcg/mL (5-10) H 10/12/18 03:55 Crossmatch See Detail 10/09/18 22:18 - Clinical Findings Intake & Output: Intake & Output 10/12/18 10/12/18 10/13/18 15:59 23:59 07:59 Intake Total 711 / 2058 609 / 2058 747 / 747 Output Total 90 / 1005 110 / 1005 285 / 285 Balance 621 / 1053 499 / 1053 462 / 462 Weight 120.6 kg Consult Discharge Plan - Plan Referrals: NONE,PCP [Primary Care Provider] - <Chanelle Blanca - Last Filed: 10/17/18 06:19> Date of Encounter: 10/13/18 Objective PUL Vital signs: Last Vital Signs Temp 98.7 F 10/13/18 08:00 Pulse 74 10/13/18 09:00 Resp 14 10/13/18 09:39 BP 110/51 10/13/18 09:00 Pulse Ox 99 10/13/18 09:39 Ventilator Settings Ventilator Settings: Ventilator Settings, Last 8 Hours Ventilator Tidal Volume 450 Setting Ventilator Tidal Volume 450 Setting Ventilator Tidal Volume 450 Setting Ventilator Tidal Volume 450 Setting Ventilator Tidal Volume 450 Setting Ventilator Tidal Volume 420 Setting Ventilator Tidal Volume 420 Setting Ventilator Tidal Volume 420 Setting Ventilator Tidal Volume 420 Setting Ventilator Tidal Volume 420 Setting Ventilator Tidal Volume 420 Setting Ventilator Tidal Volume 420 Setting Ventilator Respiratory Rate 14 Setting Ventilator Respiratory Rate 14 Setting Ventilator Respiratory Rate 14 Setting Ventilator Respiratory Rate 14 Setting Ventilator Respiratory Rate 14 Setting Ventilator Respiratory Rate 18 Setting Ventilator Respiratory Rate 18 Setting Ventilator Respiratory Rate 18 Setting Ventilator Respiratory Rate 18 Setting Ventilator Respiratory Rate 18 Setting Ventilator Respiratory Rate 18 Setting Ventilator Respiratory Rate 18 Setting Actual Respiratory Rate 14 Actual Respiratory Rate 14 Actual Respiratory Rate 14 Actual Respiratory Rate 14 Actual Respiratory Rate 14 Actual Respiratory Rate 18 Actual Respiratory Rate 18 Actual Respiratory Rate 18 Actual Respiratory Rate 18 Actual Respiratory Rate 18 Actual Respiratory Rate 18 Positive End Expiratory 5 Pressure Positive End Expiratory 5 Pressure Positive End Expiratory 5 Pressure Positive End Expiratory 5 Pressure Positive End Expiratory 5 Pressure Positive End Expiratory 8 Pressure Positive End Expiratory 8 Pressure Positive End Expiratory 8 Pressure Positive End Expiratory 8 Pressure Positive End Expiratory 8 Pressure Positive End Expiratory 8 Pressure Positive End Expiratory 8 Pressure Peak Inspiratory Airway 23 Pressure Peak Inspiratory Airway 23 Pressure Peak Inspiratory Airway 29 Pressure Peak Inspiratory Airway 30 Pressure Peak Inspiratory Airway 30 Pressure Peak Inspiratory Airway 29 Pressure Peak Inspiratory Airway 29 Pressure Peak Inspiratory Airway 29 Pressure Peak Inspiratory Airway 27 Pressure Peak Inspiratory Airway 29 Pressure Peak Inspiratory Airway 28 Pressure Results - Laboratory Findings CBC and BMP: 10/17/18 03:33 10/17/18 03:33 ABG ABG pH 7.40 pH Units (7.32-7.45) 10/13/18 04:36 ABG pCO2 34 mmHg (35-45) L 10/13/18 04:36 ABG pO2 95 mmHg (85-104) 10/13/18 04:36 ABG O2 Saturation 98 % (95-98) 10/13/18 04:36 PT/INR, D-dimer PT 15.9 Seconds (9.4-12.1) H 10/13/18 03:40 Abnormal lab findings: Abnormal lab results WBC 15.7 K/mcL (4.3-11.1) H 10/09/18 22:18 RBC 2.73 M/mcL (4.19-5.50) L 10/13/18 03:40 Hgb 7.8 g/dL (12.9-16.9) L 10/13/18 03:40 Hct 24.4 % (37.5-50.1) L 10/13/18 03:40 MCHC 31.4 g/dL (31.6-35.5) L 10/10/18 17:15 RDW 16.5 % (11.5-14.5) H 10/13/18 03:40 Plt Count 103 K/mcL (140-400) L 10/13/18 03:40 Band Neutrophils % 70.0 % (0-4) H 10/09/18 22:18 Neutrophils # 9.6 K/mcL (1.6-8.9) H 10/10/18 04:00 Lymphocytes # 0.5 K/mcL (0.6-4.6) L 10/11/18 04:05 ESR 79 mm/hr (0-10) H 10/10/18 18:56 PT 15.9 Seconds (9.4-12.1) H 10/13/18 03:40 APTT 43.1 Seconds (26.0-36.0) H 10/13/18 03:40 Fibrinogen 465 mg/dL (169-393) H 10/10/18 17:15 Heparin Anti-Xa, Unfract 0.26 IU/mL (0.30-0.70) L 10/09/18 22:18 ABG pCO2 34 mmHg (35-45) L 10/13/18 04:36 ABG pO2 52 mmHg (85-104) L 10/10/18 04:35 ABG O2 Saturation 87 % (95-98) L 10/10/18 04:35 ABG Base Excess -3 mEq/L (-2 to 3) L 10/13/18 04:36 VBG pO2 69 mmHg (25-50) H 10/09/18 22:28 Sodium 134 mEq/L (136-145) L 10/13/18 03:40 Carbon Dioxide 22 mEq/L (23-29) L 10/13/18 03:40 BUN 27 mg/dL (8-23) H 10/13/18 03:40 Creatinine 2.44 mg/dL (0.70-1.30) H 10/13/18 03:40 Est GFR ( Amer) 33 (> 60) L 10/13/18 03:40 Est GFR (Non-Af Amer) 27 (> 60) L 10/13/18 03:40 Glucose 129 mg/dL (70-105) H 10/13/18 03:40 POC Glucose 159 mg/dL (70-99) H 10/12/18 23:27 Calcium 7.5 mg/dL (8.6-10.3) L 10/13/18 03:40 Venous Ioniz Calcium 1.11 mmol/L (1.15-1.35) L 10/13/18 03:55 AST 66 Units/L (13-39) H 10/09/18 22:18 Lactate Dehydrogenase 286 Units/L (140-271) H 10/10/18 19:23 Troponin I 31.20 ng/mL (< 0.04) H* 10/10/18 12:00 C-Reactive Protein 209 mg/L (Less than 10) H 10/10/18 19:23 B-Natriuretic Peptide 868 pg/mL (Less than 100) H 10/09/18 22:18 Serum Total Protein 5.9 g/dL (6.4-8.9) L 10/13/18 03:40 Albumin 2.3 g/dL (3.5-5.7) L 10/13/18 03:40 Globulin 3.6 g/dL (2.4-3.5) H 10/13/18 03:40 Albumin/Globulin Ratio 0.6 (1.1-2.2) L 10/13/18 03:40 Procalcitonin 53.10 ng/mL (0.00-0.15) H 10/10/18 05:00 Urine Clarity Cloudy (Clear) A 10/10/18 00:42 Urine Protein >=300 mg/dL (Neg-Trace) H 10/10/18 00:42 Urine Ketones Trace mg/dL (Negative) H 10/10/18 00:42 Urine Blood Trace (Negative) H 10/10/18 00:42 Urine Bilirubin Moderate (Negative) H 10/10/18 00:42 Urine Microscopic RBC 3-5 per hpf (0-3) H 10/10/18 00:42 Urine Microscopic WBC 5-15 per hpf (0-3) H 10/10/18 00:42 Ur Squamous Epith Cells Many per lpf (None-Few) H 10/10/18 00:42 Hyaline Casts Many per lpf (None-Few) H 10/10/18 00:42 Nasal Screen MRSA (PCR) Positive (Negative) A 10/09/18 22:59 Stl C.diff Tox A&B Gene DETECTED (Not detect) A 10/09/18 13:59 Vancomycin Trough 23 mcg/mL (5-10) H 10/12/18 03:55 Crossmatch See Detail 10/09/18 22:18 - Clinical Findings Intake & Output: Intake & Output 10/12/18 10/13/18 10/13/18 23:59 07:59 15:59 Intake Total 609 / 2058 747 / 1001 254 / 1001 Output Total 110 / 1005 335 / 335 Balance 499 / 1053 412 / 666 254 / 666 Weight 120.6 kg - Attending Attestation I examined this patient and my medical decision-making was reviewed with the Resident Physician. I agree with the documented findings, disposition and treatment plan as described except to the extent set forth below. Patient seen and examined. Labs, radiology, chart personally reviewed. Agree with resident's history and physical, assessment, plan with following comments: [employer]: Patient follows commands, however he is very weak and this could be a problem to liberate him from the invasive mechanical ventilation Pulmonary: Acceptable oxygenation and ventilation and vent change made. No plan for SBT. Lowered PEEP. I'm very concerned about his overall condition mainly his congestive heart failure that would make significant difficult to liberate him from the ventilator. We will consider noninvasive ventilation if he gets to the point to be extubated. Diuresis as tolerated if his blood pressure does not significantly drops. Cardiovascular: remain in shock and will try to wean off Levophed and continue Dopamine mainly for the inotropic and he is congestive heart failure. Cardiology to follow up. Patient is always at risk for arrhythmias. GI: Nutrition per dietary and GI prophylaxis per routine Heme: DVT prophylaxis per routine and blood transfusion ID: Continue antibiotics and plan to de-escalation and defer Abx management to ID team. I feel this can be de-escalated. Renal; urine out put and renal function reviewed and nephrology input is appreciated Endorcine: blood glucose is monitored Lines: all lines checked and no evidence of infections Skin: skin care to prevent pressure ulcers per nursing routine care Dispo: ICU Code: Full. Prognosis. poor and they feel patient needs palliative care. I spent 40 min of Critical Care time with this patient. It involved decision making of high complexity to assess, manipulate, and support vital organ system failure and/or to prevent further life threatening deterioration of the patient's condition. The time involved in the performance of separately reportable procedures was not counted toward critical care time.
--- NOTE | 2018-10-13 08:08 | Infectious Disease Progress No ---
ID Progress Note Date of Encounter: 10/13/18 Time of Encounter: 09:00 - Subjective Subjective: Was seen and examined at the bedside. He continues to be on mechanical ventilation was on Levophed and dopamine this morning for pressor support, maintaining a MAP above 65. His Levophed was discontinued this morning at 10:30 AM. His white blood count has gone down from 15.7 on admission to 4.1 right now. He continues to remain afebrile throughout the course of his ICU stay. He is on day 5 of IV Flagyl, day 4 of cefepime and day 3 of by mouth vancomycin. His labs show a creatinine is 2.42 (Baseline Cr: 2.0) - Objective CBC & Chem 7: 10/14/18 03:56 10/14/18 03:56 - Exam Vitals: Temp Pulse Resp BP Pulse Ox 97.5 F L 68 14 117/67 100 10/13/18 04:00 10/13/18 07:00 10/13/18 07:36 10/13/18 07:00 10/13/18 07:36 Exam: Gen.: Vitals noted. No acute distress. Currently intubated on Dopamine for pressor support HEENT: oropharynx clear, Normocephalic, atraumatic, MMM Neck: supple, no JVD, no lymphadenopathy, no carotid bruit. Cardiac: RRR, no murmur, +S1/S2, No BLE edema, PMI non-displaced Pulmonary: bilateral wheezing, no rales or rhonchi, equal chest expansion Abdomen: soft, nontender, BS noted, no guarding, undistended. No organomegaly, no pulsatile masses, Skin: R leg cellulites drapped in bandage, warm and dry Extremities: Left leg amputated, R leg cellulites drapped in bandage, warm and dry MSK: ROM not assessed. no joint swelling noted, gait not assessed while in bed. Non tender calf or clubbing, no cyanosis/clubbing/ or edema Neuro: A&O, moves all extremities, no focal deficits, sensation intact - Assessment and Plan (1) Shock Current Visit: Yes Status: Acute -Likely cardiogenic in nature -Patient was transferred from [facility] to ICU because of diarrheal episodes for the past 2 weeks accompanied by abdominal pain -Pertinent Vitals /Labs on admission: Temp: 99.9, Pulse: 97, RR: 27, WBC: 15.7, Band neutrophils 70%, Lactate : 2.1, BNP: 2898. -Pertinent Vitals /Labs now: Temp: 97.8, Pulse: 69, RR: 14, WBC: 4.1 -He also has a right leg cellulitis- no evidence of any bleeding or serosanguineous discharge -10/09/18 Chest x-ray showed bilateral mild and lower lung airspace disease and bilateral pleural effusion with concerns for pulmonary edema -10/10/18 Abdomen /Pelvic CT revealed wall thickening of the sigmoid colon likely related to lack of distention. Correlation for colitis is recommended -Currently on Dopamine pressor support to maintain his MAP. Levothroid discontinued this am -Currently on day 4 of IV 2g cefepime, day 3 of PO 500mg vancomycin, day 5 of IV 500 mg Flagyl PLAN -Continue on pressor support to keep his mean arterial pressure above 65 -Continue vancomycin, vancomycin trough around 15 - Discontinue rectal vancomycin -Continue cefepime 2 g IV every 12 hours for a total of 10-14 days -Continue IV Flagyl 500mg q8h SNOMED Code(s): 98099691 (2) C. difficile diarrhea Current Visit: Yes Status: Acute -Patient has a history of associated diarrhea . -He was treated in the hospital in the month of June for C. difficile and was on discharged vancomycin taper. -Has been afebrile since admission, with white blood count of 15.7 at [facility] currently WBC is 4.1 -Stool C. difficile toxin A&B was detected . -And has a rectal tube in place with 200 mL of output -CT abdominal pelvis did not show any evidence for toxic megacolon but there was wall thickening of the sigmoid colon PLAN: -Continue vancomycin 500mg PO QID and Flagyl 500 mg IV every 8 hours SNOMED Code(s): 9240849412324 (3) Cellulitis of right leg Current Visit: Yes Status: Acute -Patient has a history of cellulitis of the right leg -10/08/18 recent wound culture grew gram-negative rods, sensitivity pending - 06/21/18 would culture grew : S aureus, Pseudomonas aeruginosa - P aeruginosa: S: Cefepime, ceftazidime, ciprofloxacin, gentamicin, independent, levofloxacin, Zosyn, tobramycin - S auerus: S - daptomycin, doxycycline, gentamicin, oxacillin, rifampin, tetracycline, Zosyn, vancomycin - 06/18/18 would culture grew : Group B strep, Pseudomonas aeruginosa which were pansensitive -Patient is not afebrile at the moment , His white blood count trending down from 15.7 yesterday to 9.3 today. -Curently on Cefepime 2g IV q 12 h for total of 10-14 days - SNOMED Code(s): 387874563 (4) Pneumonia Current Visit: Yes Status: Acute Procal significantly elevated at 53.1 10/11/18: CXR Consolidation is likely pleural effusion but cannot rule out pneumonia at this time Currently on day 5 of IV 500mg Flagyl, day 4 of 2gm cefepime and day 3 of 500mg PO Vancomycin Qualifiers: Pneumonia type: due to unspecified organism Laterality: unspecified laterality Lung location: unspecified part of lung Qualified Code(s): J18.9 - Pneumonia, unspecified organism SNOMED Code(s): 822455598 (5) NSTEMI (non-ST elevated myocardial infarction) Current Visit: Yes Status: Acute Patient found to have significant elevation in his troponin with troponin less than upper limit of normal at [facility] and upon arrival to [place] was found to have troponin of 30.22 and repeat 30.47 * Echocardiogram limited was obtained which shows EF of 25% which is a significant drop from previous in 05/30/18 which had a EF of 60-65% * The patient does have a long history of cardiac disease and has undergone CABG prior * Patient underwent catheterization overnight with Dr. Velasquez and a bare metal stent was placed in the saphenous venous graft OM1 SNOMED Code(s): 82964438 (6) Congestive heart failure Current Visit: No Status: Acute - Patient has an acute decompensation of heart failure likely due to NSTEMI -Recent echocardiogram showed an EF of 25% which was a significant drop from his EF in 05/2018 when it was 60-65% -Patient was initially started on 20 IV Lasix but since patient is preload dependent owing to his reduced EF , his Lasix will be held - Further management as per the ICU team Qualifiers: Heart failure type: unspecified Heart failure chronicity: chronic Qualified Code(s): I50.9 - Heart failure, unspecified SNOMED Code(s): 90189805 (7) CKD (chronic kidney disease) stage 3, GFR 30-59 ml/min Current Visit: Yes Status: Acute -She has a history of CK D of a stage III -Patient has had a bump in his creatinine from 1.56 on admission to 2.42 . -Avoid nephrotoxic agent and renally dose steroids. No indication for IV hydration because of pulmonary edema but will resume gnetly hydration once patient is hemodynamically stable SNOMED Code(s): 558168575 (8) Allergy to multiple antibiotics Current Visit: Yes Status: Acute Patient allergic to multiple antibiotics like Biaxin, Keflex, Levaquin, Zithromax and clindamycin SNOMED Code(s): 300068374926486 (9) DM type 2 (diabetes mellitus, type 2) Current Visit: Yes Status: Chronic Patient has a history of diabetes. Currently on low-dose sliding scale insulin Qualifiers: Diabetes mellitus assisted insulin use: without assisted use Diabetes mellitus complication status: without complication SNOMED Code(s): 92309324 Consult Discharge Plan - Plan Referrals: NONE,PCP [Primary Care Provider] - - Attending Attestation I examined this patient and my medical decision-making was reviewed with the Resident Physician. I agree with the documented findings, disposition and treatment plan as described except to the extent set forth below. Assessment and plan: 1.Septic shock requiring dopamine for pressor 2.Acute coronary syndrome status post angioplasty 3.Acute respiratory failure on vent support 4.Abdominal anus and distention concern for ischemic bowel 5.Diabetes mellitus type 2 6.History of C. difficile colitis 7.Congestive heart failure 8.Multiple antibiotic allergies 9.Cellulitis right lower extremity causative organism gram-negative juventino final ID pending Recommendations: Imaging reviewed discuss with pharmacy we will de-escalate the vancomycin per rectum and the IV Flagyl and the dose of oral vancomycin since the patient is not in fulminant or toxic megacolon C. difficile colitis. Discussed with nursing staff Megan and she tells me she is sucking significant amounts of thick brown mucus secretions so we will treat this as a pneumonia. Also discussed with family at bedside the the daughter and the son at. Attempted to answer the questions and addressed their concerns.
[2018-10-13] MEDS: Cefepime HCl 2,000 MG in Water for inj. (sterile) 20 ML IVP SCH (08:23)
[2018-10-13] MEDS: Chlorhexidine Rinse 15 ML MOUTHWASH MM SCH ×2 (08:23→20:07)
[2018-10-13] MEDS: Vancomycin Oral Soln 125 MG/2.5 ML UDC PO SCH ×4 (08:24→20:07)
[2018-10-13] MEDS: Norepinephrine 4 MG in D5% in Water 250 ML IVC SCH (09:16)
--- NOTE | 2018-10-13 09:26 | Cardiology Progress Note ---
Date of Encounter: 10/13/18 Time of Encounter: 09:00 Assessment and Plan (1) Acute VT Current Visit: Yes Status: Acute Troponin flat at 30; acute decompensation upon arrival from [facility] which prompted urgent LHC. s/p PCI of SVG to OM; recommend uninterrupted DAPT (asa + plavix) to avoid stent thrombosis. Unable to tolerate BB due to hypotension, allergy to statin. Cardiac rehab. No further inpt recommendations from Cardiology, will continue to peripherally follow. Qualifiers: Involved coronary artery: unspecified coronary artery Qualified Code(s): I21.9 - Acute myocardial infarction, unspecified (2) C. difficile diarrhea Current Visit: Yes Status: Acute (3) Acute exacerbation of CHF (congestive heart failure) Current Visit: Yes Status: Acute Known hx of HFpEF; presented with acute CHF, suspect multifactorial in etiology. s/p PCI of SVG-OM. MANCERA-LAD patent. Initial symptoms at [facility] abdominal pain, diarrhea x2 weeks, and low grade t emp. On IV pressors, remains intubated. Recommend betablocker and ACEi when hemodynamically stable. Significant volume overload on exam, will defer diuresis to Nephrology given worsening renal function. Strict I&Os, daily weights, Na/fluid restricted diet. Qualifiers: Heart failure type: systolic Qualified Code(s): I50.23 - Acute on chronic systolic (congestive) heart failure (4) Acute on chronic blood loss anemia Current Visit: Yes Status: Acute H/H worsening. Heparin gtt (afib) on hold. Given recent GIOVANA, recommend uninterrupted DAPT with Asa + plavix. Continue supportive measures and PRBC transfusion. (5) Acute on chronic kidney failure Current Visit: Yes Status: Acute GILES on CKD. SCr continues to worsen. On IV pressors. Nephrology consult. Qualifiers: Acute renal failure type: unspecified Chronic kidney disease stage: stage 3 (moderate) Qualified Code(s): N17.9 - Acute kidney failure, unspecified; N18.3 - Chronic kidney disease, stage 3 (moderate) (6) A-fib Current Visit: Yes Status: Chronic On BB and Eliquis at home. Rate controlled in the 60's upon exam. On levophed and dopamine. Heparin gtt on hold due to bleeding, anemia. Resume when able. Qualifiers: Atrial fibrillation type: paroxysmal Qualified Code(s): I48.0 - Paroxysmal atrial fibrillation Discussion w patient/family: The assessment and plan as outlined above was discussed with the patient and/or family members who expressed understanding and agreement. All questions were answered. Thank you for involving us in the care of your patient. Please call with any questions. The patient was discussed and reviewed with Dr. Coleman; changes to be made accordingly. Subjective Principal diagnosis: CHF, AMI, C-Diff, GILES Interval history: Seen and examined. Patient remains intubated/sedated. Edema worsening. Objective Vital Signs, Last 4 Hours Temp Pulse Resp BP Pulse Ox 10/13/18 09:00 74 14 110/51 98 10/13/18 08:00 98.7 F 74 14 118/53 100 10/13/18 07:40 98.7 F 10/13/18 07:36 14 100 10/13/18 07:00 68 14 117/67 96 10/13/18 06:00 67 18 123/65 100 General: Other (intubated/sedated) HEENT: Atraumatic, Normocephaly Cardiac: Other (irregularly irregular) Neuro: Other (Coarse breath sounds anteriorally) Abdomen: Other (large, obese) Extremities: Other (significant volume overload; generalized edema/anasarca. left BKA) Results 10/13/18 03:40 10/13/18 03:40 Lab Results 10/13/18 10/13/18 10/13/18 03:40 03:40 03:40 WBC 5.7 Hgb 7.8 L Hct 24.4 L Plt Count 103 L INR 1.4 APTT 43.1 H Sodium 134 L Potassium 3.9 Chloride 105 Carbon Dioxide 22 L BUN 27 H Creatinine 2.44 H Glucose 129 H Calcium 7.5 L Magnesium 2.2 Total Bilirubin AST ALT Alkaline Phosphatase 10/13/18 03:40 WBC Hgb Hct Plt Count INR APTT Sodium Potassium Chloride Carbon Dioxide BUN Creatinine Glucose Calcium Magnesium Total Bilirubin 0.5 AST 31 ALT 8 Alkaline Phosphatase 67 Active Medications Albuterol/Ipratropium (Duoneb) 3 ml IH [id number] [facility] Stop: 04/11/19 00:01 Last Admin: 10/13/18 07:35 Dose: 3 ml Documented by: Artificial Tears (Akwa Tears) 1 drop BOTH EYES Q2HR PRN; Protocol PRN Reason: Dry Eyes Stop: 04/11/19 01:13 Artificial Tears (Akwa Tears) 1 drop BOTH EYES Q4HR [facility]; Protocol Stop: 04/11/19 04:01 Last Admin: 10/13/18 08:24 Dose: 1 drop Documented by: Budesonide/Formoterol Fumarate (Symbicort) 2 puff IH BIDR [facility]; Protocol Stop: 04/11/19 10:01 Last Admin: 10/13/18 07:36 Dose: 2 puff Documented by: Chlorhexidine Gluconate (Chlorhexidine Rinse) 15 ml MM BID [facility] Stop: 04/11/19 01:16 Last Admin: 10/13/18 08:23 Dose: 15 ml Documented by: Clopidogrel Bisulfate (Plavix) 75 mg PO DAILY [facility] Stop: 04/11/19 09:01 Last Admin: 10/13/18 08:23 Dose: 75 mg Documented by: Vancomycin HCl 500 mg/ Sodium (Chloride 250 ml) 0 mg RC Q6H [facility] Stop: 04/11/19 16:01 Last Admin: 10/13/18 03:31 Dose: 500 mg Documented by: Dextrose/Water (Dextrose 50% (Syg)) 25 ml IVP AD PRN PRN Reason: Hypoglycemia Stop: 04/10/19 20:43 Glucagon (Glucagen) 1 mg IM ONCE PRN PRN Reason: Hypoglycemia Stop: 04/10/19 20:43 Glucose (Gluctose) 15 gm PO ONCE PRN PRN Reason: Hypoglycemia Stop: 04/10/19 20:43 Glucose (Gluctose) 30 gm PO ONCE PRN PRN Reason: Hypoglycemia Stop: 04/10/19 20:43 Heparin Sodium (Porcine) (Heparin) 4,000 unit IVP Q6HR PRN PRN Reason: SEE COMMENTS Stop: 04/10/19 20:44 Heparin Sodium (Porcine) (Heparin) 2,000 unit IVP Q6H PRN PRN Reason: SEE COMMENTS Stop: 04/10/19 20:44 Last Admin: 10/09/18 23:12 Dose: 2,000 unit Documented by: Dextrose (Dextrose 5%) 1,000 mls @ 100 mls/hr IVC .Q10H PRN PRN Reason: HYPOGLYCEMIA Stop: 04/10/19 20:43 Fentanyl Citrate 1,000 mcg/ (Sodium Chloride) 100 mls @ 5 mls/hr IVC CONT [facility]; Protocol Stop: 04/11/19 00:46 Last Admin: 10/13/18 07:15 Dose: 50 mcg/hr, 5 mls/hr Documented by: Midazolam HCl 50 mg/ Sodium (Chloride) 100 mls @ 4 mls/hr IVC CONT [facility]; Protocol Stop: 04/11/19 00:46 Last Admin: 10/12/18 20:07 Dose: 2 mg/hr, 4 mls/hr Documented by: Dopamine HCl/Dextrose (Dopamine Premix 400mg/250ml) 400 mg in 250 mls @ 63.056 mls/hr IVC .Q3H58M [facility]; Protocol Stop: 04/11/19 03:16 Last Admin: 10/13/18 00:07 Dose: 5 mcg/kg/min, 21 mls/hr Documented by: Heparin Sodium/Dextrose (Heparin 25,000 Unit/250 Ml D5w) 25,000 unit in 250 mls @ 10.089 mls/hr IVC .Q24H [facility]; Protocol Stop: 04/10/19 20:46 Last Admin: 10/11/18 04:55 Dose: Not Given Documented by: Calcium Gluconate (Calcium Gluconate 1gm/50ml) 1 gm in 50 mls @ 50 mls/hr IVPB Q6HR PRN PRN Reason: Hypocalcemia Stop: 04/11/19 05:56 Last Infusion: 10/12/18 18:44 Dose: Infused Documented by: Magnesium Sulfate 2 gm/ Sodium (Chloride) 104 mls @ 52 mls/hr IVPB Q6H PRN PRN Reason: hypomagnesemia Stop: 04/11/19 05:56 Last Infusion: 10/11/18 12:18 Dose: Infused Documented by: Potassium Chloride (Potassium Chloride 10 Meq/100ml) 10 meq in 100 mls @ 100 mls/hr IVPB Q1H PRN PRN Reason: Potassium less than 4 Stop: 04/11/19 05:56 Last Infusion: 10/11/18 07:10 Dose: Infused Documented by: Potassium Phosphate 44 meq/ (Sodium Chloride) 260 mls @ 40 mls/hr IVPB Q10H PRN PRN Reason: Phosphate less than 3 Stop: 04/11/19 05:56 Sodium Phosphate 30 mmol/ (Sodium Chloride) 260 mls @ 42 mls/hr IVPB Q12H PRN PRN Reason: Hypophosphatemia Stop: 04/11/19 05:56 Cefepime HCl 2,000 mg/ Sterile (Water) 20 mls @ 300 mls/hr IVP Q12H [facility] Stop: 04/11/19 09:01 Last Admin: 10/13/18 08:23 Dose: 300 mls/hr Documented by: Metronidazole (Flagyl Premix 500 Mg/100 Ml) 500 mg in 100 mls @ 100 mls/hr IVPB Q8HR [facility] Stop: 04/11/19 16:01 Last Admin: 10/13/18 08:24 Dose: 100 mls/hr Documented by: Norepinephrine Bitartrate 4 mg (/ Dextrose) 254 mls @ 30.48 mls/hr IVC CONT [facility]; Protocol Stop: 04/11/19 16:01 Last Admin: 10/13/18 09:16 Dose: 2 mcg/min, 7.6 mls/hr Documented by: Insulin Human Lispro (Humalog) 0 units SQ Q6HR [facility]; Protocol Stop: 04/11/19 00:01 Last Admin: 10/13/18 07:12 Dose: Not Given Documented by: Levothyroxine Sodium (Synthroid) 75 mcg PO 0630 [facility] Stop: 04/11/19 06:31 Last Admin: 10/13/18 07:12 Dose: 75 mcg Documented by: Montelukast Sodium (Singulair) 10 mg PO [facility] Stop: 04/10/19 21:01 Last Admin: 10/12/18 20:13 Dose: 10 mg Documented by: Naloxone HCl (Narcan) 0.4 mg IVP Q2MPRN PRN PRN Reason: SEE COMMENTS Stop: 04/10/19 20:33 Ondansetron HCl (Zofran) 4 mg IVP Q8HR PRN PRN Reason: Nausea And Vomiting Stop: 04/10/19 20:33 Pantoprazole Sodium (Protonix) 40 mg IVP 0630 [facility] Stop: 04/11/19 06:31 Last Admin: 10/13/18 07:12 Dose: 40 mg Documented by: Promethazine HCl (Phenergan) 12.5 mg IVP Q6HR PRN PRN Reason: Nausea And Vomiting Stop: 04/10/19 20:33 Simvastatin (Zocor) 40 mg PO [facility]; Protocol Stop: 04/10/19 21:01 Last Admin: 10/12/18 20:13 Dose: 40 mg Documented by: Vancomycin HCl (Firvanq) 500 mg PO QID [facility] Stop: 04/10/19 22:01 Last Admin: 10/13/18 08:24 Dose: 500 mg Documented by: Vancomycin HCl (Vancocin) 0 each IVPB RPHPROT PRN PRN Reason: PULSE DOSE Stop: 04/13/19 04:43 - Imaging and Cardiology Echo: report reviewed Cardiac cath: report reviewed - EKG Interpretation EKG results cardiology: personally reviewed Consult Discharge Plan - Plan Referrals: NONE,PCP [Primary Care Provider] -
[2018-10-13] MEDS ORDERED: Aminoglycoside Consult 1 EACH MC ONE (09:39)
--- NOTE | 2018-10-13 09:52 | Nephrology Consult Note ---
Date of Encounter: 10/13/18 Time of Encounter: 09:49 Assessment and Plan (1) Acute on chronic kidney failure Current Visit: Yes Status: Acute The patient has acute kidney injury superimposed on chronic kidney disease. He has a variable baseline renal function. Reviewing his records reveals that he has had dialysis in the past for an acute kidney injury episode. His current acute kidney injury is multifactorial from sepsis along with contrast exposure. He was oliguric, however, it appears that his renal function may be improving slightly. At this time he does not need dialysis. We will monitor closely. He would probably benefit from a blood transfusion to keep his hemoglobin above 10. Keep his mean blood pressure above 65. His CT scan of his abdomen reveals cirrhosis of the liver so he is at risk of hepatorenal syndrome, however, I do not think that is what he has at this moment. Qualifiers: Acute renal failure type: unspecified Chronic kidney disease stage: stage 3 (moderate) Qualified Code(s): N17.9 - Acute kidney failure, unspecified; N18.3 - Chronic kidney disease, stage 3 (moderate) (2) Acute MD Current Visit: Yes Status: Acute Qualifiers: Involved coronary artery: unspecified coronary artery Qualified Code(s): I21.9 - Acute myocardial infarction, unspecified (3) Acute exacerbation of CHF (congestive heart failure) Current Visit: Yes Status: Acute Qualifiers: Heart failure type: systolic Qualified Code(s): I50.23 - Acute on chronic systolic (congestive) heart failure (4) Acute on chronic blood loss anemia Current Visit: Yes Status: Acute (5) DM type 2 (diabetes mellitus, type 2) Current Visit: Yes Status: Acute Per the primary team Qualifiers: Qualified Code(s): E11.9 - Type 2 diabetes mellitus without complications (6) Septic shock Current Visit: Yes Status: Acute (7) Anemia Current Visit: Yes Status: Chronic Qualifiers: Anemia type: due to chronic kidney disease Chronic kidney disease stage: stage 3 (moderate) Qualified Code(s): N18.3 - Chronic kidney disease, stage 3 (moderate); D63.1 - Anemia in chronic kidney disease (8) Hypertension Current Visit: Yes Status: Chronic Qualifiers: Hypertension type: essential hypertension Qualified Code(s): I10 - Essential (primary) hypertension History of Present Illness - Reason for Consult Consult date: 10/13/18 Acute Kidney Injury, Chronic Kidney Disease - Chief Complaint dashawn/ckd - History of Present Illness Mr. Sanford is a 63 yo man with multiple comorbidities. He was transferred from [facility] for elevated troponin. Patient had a NSTEMI, CHF and respiratory failure. Patient is intubated and sedated so his history was obtained from review of the medical records. [facility] consult is secondary to acute kidney injury superimposed on chronic kidney disease. Past Med Surg Social Fam HX - Past Medical History Medical history: asthma, CHF, coronary artery disease, diabetes, GERD, hype rlipidemia, hypertension, renal disease, thyroid disease, other Additional medical history: ckd 4 Psychiatric history: depression - Past Surgical History Surgical History: cholecystectomy, coronary bypass (CABG), sinus surgery Additional surgical history: CABG x3, BCC removed from L ear, heart catheterization, cataracts removed, eye surgery, - Social History Smoking Status: Former smoker Smokeless Tobacco Status: No Alcohol use: none Drug use: none - Family History Mother Adopted: Yes Living Status: Hx Family Endocrine Disorder: Yes (Diabetes) Father Living Status: Hx Family Cardiac Disorders: Yes (Coronary artery disease) Medications and Allergies Albuterol Neb [Proventil Neb] 2.5 mg IH Q4HR PRN 10/10/18 [History] Albuterol Sulfate [Proventil Inhaler] 2 puff IH Q4H PRN 10/10/18 [History] Amlodipine Besylate 10 mg PO DAILY 10/10/18 [History] Beclomethasone Dipropionate [QVAR 80 mcg REDIHALER] 2 puff IH BID PRN 10/10/18 [History] Bumetanide [Bumex] 1 mg PO DAILY 10/10/18 [History] Cholecalciferol (Vitamin D3) [Vitamin D3] 4,000 unit PO DAILY 10/10/18 [History] Ergocalciferol (VITAMIN D2) [Vitamin D2] 50,000 unit PO ASHER 10/10/18 [History] Ferrous Gluconate 324 mg PO DAILY 10/10/18 [History] Levothyroxine Sodium 75 mcg PO DAILY 10/10/18 [History] Montelukast [Singulair] 10 mg PO HS 10/10/18 [History] Sevelamer [Renvela] 800 mg PO TIDWM 10/10/18 [History] Simvastatin [Zocor] 40 mg PO HS 10/10/18 [History] Sodium Bicarbonate 650 mg PO TID 10/10/18 [History] Allergy/AdvReac Type Severity Reaction Status Date / Time acetaminophen [From Percocet] Allergy Hives Verified 12/24/16 13:43 atorvastatin [From Lipitor] Allergy Hives Verified 12/24/16 13:43 azithromycin Allergy Hives Verified 12/24/16 13:43 [From Zithromax Z-Sharad] Cefaclor [From Ceclor] Allergy Hives Verified 12/24/16 13:43 cephalexin [From Keflex] Allergy Hives Verified 12/24/16 13:43 ciprofloxacin [From Cipro] Allergy Hives Verified 12/24/16 13:43 clarithromycin [From Biaxin] Allergy Hives Verified 12/24/16 13:43 clindamycin Allergy Hives Verified 12/24/16 13:43 metoprolol Allergy Hives Verified 12/24/16 13:43 moxifloxacin [From Avelox] Allergy Hives Verified 12/24/16 13:43 oxycodone [From Percocet] Allergy Hives Verified 12/24/16 13:43 prednisone Allergy Hives Verified 12/24/16 13:43 Streptomycin Allergy Hives Verified 12/24/16 13:43 sulfamethoxazole Allergy Hives Verified 12/24/16 13:43 [From Bactrim] trimethoprim [From Bactrim] Allergy Hives Verified 12/24/16 13:43 Review of Systems ROS unobtainable: due to endotracheal tube, due to mental status Exam - Vital Signs Vital signs: Initial Vital Signs Temp Pulse Resp BP Pulse Ox 99.9 F H 97 27 120/67 100 10/09/18 20:00 10/09/18 20:00 10/09/18 20:00 10/09/18 20:00 10/09/18 20:00 Vital Signs - Last 8 Hours Temp Pulse Resp BP Pulse Ox 10/13/18 09:39 14 99 10/13/18 09:00 74 14 110/51 98 10/13/18 08:00 98.7 F 74 14 118/53 100 10/13/18 07:40 98.7 F 10/13/18 07:36 14 100 10/13/18 07:00 68 14 117/67 96 10/13/18 06:00 67 18 123/65 100 10/13/18 05:01 18 114/59 100 10/13/18 05:00 63 18 122/58 100 10/13/18 04:06 18 118/57 100 10/13/18 04:00 97.5 F L 60 18 118/57 100 10/13/18 03:00 61 18 125/61 99 10/13/18 02:00 65 18 120/57 99 Intake and Output 10/12/18 10/13/18 10/13/18 23:59 07:59 15:59 Intake Total 609 / 2058 747 / 1001 254 / 1001 Output Total 110 / 1005 335 / 335 Balance 499 / 1053 412 / 666 254 / 666 Intake: IV Fluids 289 / 1053 450 / 704 254 / 704 DOPamine Premix 400mg/250mL 400 250 / 250 mg In 250 ml @ 15 MCG/KG/MIN 63.056 mls/hr IVC .Q3H58M [facility] Rx#:[id number] FentaNYL (PF) 1,000 MCG In 0.9 100 / 100 % Sodium Chloride 80 ML @ 50 MCG/HR 5 mls/hr IVC CONT [facility] Rx #:[id number] Versed 50 MG In 0.9 % Sodium 99 / 99 Chloride 90 ML @ 2 MG/HR 4 mls/ hr IVC CONT [facility] Rx#:[id number] Levophed 4 MG In Dextrose 5% 254 / 254 250 ML @ 8 MCG/MIN 30.48 mls/hr IVC CONT [facility] Rx#:[id number] Maxipime 2,000 MG In Water for 40 / 40 inj. (sterile) 20 ML @ 300 mls/ hr IVP Q12H [facility] Rx#:[id number] Calcium Gluconate 1gm/50mL 1 gm 50 / 50 In 50 ml @ 50 mls/hr IVPB Q6HR PRN Rx#:[id number] Flagyl Premix 500 MG/100 ML 500 100 / 300 100 / 100 mg In 100 ml @ 100 mls/hr IVPB Q8HR [facility] Rx#:[id number] Tube Feeding 70 / 255 47 / 47 Other 250 / 750 250 / 250 Output: Rectal Tube 200 / 200 Catheter 110 / 305 135 / 135 Other: Weight 120.6 kg Blood Glucose* 167 159 Patient Weight 10/13/18 23:59 Weight 120.6 kg - General Appearance General appearance: well-developed, well-nourished, obese, sedated on ventilator, intubated EENT: ATNC Neck: supple Respiratory: course breath sounds Cardiology: edema, regular rate Additional Comments: Left below-knee amputation Gastrointestinal: no tenderness, obese Integumentary: warm and dry Neurologic: alert and oriented x3 Musculoskeletal: no cyanosis Psychiatric: mood/affect appropriate Results - Lab Results 10/13/18 03:40 10/13/18 03:40 Most recent lab results 10/13/18 10/13/18 10/13/18 03:40 03:40 04:36 ABG pH 7.40 ABG pCO2 34 L ABG pO2 95 ABG HCO3 21 ABG O2 Saturation 98 Calcium 7.5 L Phosphorus 3.4 Magnesium 2.2 Urine Creatinine 79 Urine Sodium 14.5 Consult Discharge Plan - Plan Referrals: NONE,PCP [Primary Care Provider] -
[2018-10-13] MEDS ORDERED: 0.9 % Sodium Chloride 250 ML ONE (11:46)
--- NOTE | 2018-10-13 12:51 | Podiatry Progress Note ---
Date of Encounter: 10/13/18 Time of Encounter: 12:49 - Assessment and Plan (1) Right foot ulcer Current Visit: Yes Status: Chronic Assessment: Richard grade II ulceration right foot Slough noted to wound bed No erythema, edema, or lymphangitis noted to right foot Wound culture obtained Saturday10/08/18 returned group b strep and psuedomonas XR indeterminate for OM, negative for gas, will discuss with surgeon WBC 5.7, ESR 79, CRP 209 Plan: Local wound care orders placed Wound appears stable at this time Patient with multiple allergies, ID consulted for ATB management- appreciate recommendations Cleansed with 0.9 NS, covered with calcium alginate AG, covered with 4x4 dry gauze, and medipore Impression: XR/XR foot 3V RT IMPRESSION: Soft tissue swelling about the foot with great toe ulceration and subtle loss of the cortical white line of the underlying great toe distal phalangeal tuft which could indicate osteomyelitis. Soft tissue swelling about the foot could reflect edema and/or cellulitis. No soft tissue gas. D/ / Manan Powell / Manan Powell Interpreting Provider: aMnan Powell Qualifiers: Non-pressure ulcer stage: limited to breakdown of skin Qualified Code(s): L97.511 - Non-pressure chronic ulcer of other part of right foot limited to breakdown of skin (2) Venous stasis dermatitis of right lower extremity Current Visit: Yes Status: Acute Assessment: Erythema noted to RLE Xerosis noted RLE No weeping noted No ulceration noted Plan: Covered RLE with adaptic, kerlix, and JESSY wrap Local wound care ordered, nursing to change Subjective Principal diagnosis: CHF, AMI, C-Diff, GILES Interval history: Patient sedated on vent. Unable to assess mentation Objective - Vital Signs Vital Signs: Vital Signs Temp Pulse Resp BP Pulse Ox 10/13/18 12:09 96.4 F L 65 14 112/54 99 10/13/18 12:00 96.5 F L 65 14 112/54 99 10/13/18 11:54 96.5 F L 65 14 112/51 98 10/13/18 11:50 96.5 F L 10/13/18 11:12 14 96 07/15/19 11:00 67 14 114/56 98 10/13/18 10:00 66 14 119/47 98 10/13/18 09:39 14 99 10/13/18 09:00 74 14 110/51 98 10/13/18 08:00 98.7 F 74 14 118/53 100 10/13/18 07:40 98.7 F 07 07:36 14 100 10/13/18 07:00 68 14 117/67 96 10/13/18 06:00 67 18 123/65 100 10/13/18 05:01 18 114/59 100 10/13/18 05:00 63 18 122/58 100 10/13/18 04:06 18 118/57 100 10/13/18 04:00 97.5 F L 60 18 118/57 100 10/13/18 03:00 61 18 125/61 99 10/13/18 02:00 65 18 120/57 99 10/13/18 01:15 18 118/59 100 10/13/18 01:00 70 18 122/59 100 10/13/18 00:00 98.2 F 69 18 130/56 100 10/12/18 23:31 18 111/63 100 10/12/18 23:00 83 18 126/56 100 10/12/18 22:00 79 18 132/56 100 10/12/18 21:26 18 129/54 100 10/12/18 21:00 79 18 129/54 100 10/12/18 20:00 98.4 F 79 18 126/56 100 10/12/18 19:40 18 126/56 100 10/12/18 19:00 82 18 120/53 99 10/12/18 18:00 98.0 F 83 18 126/56 98 10/12/18 17:22 98.0 F 79 18 119/64 98 10/12/18 17:00 80 18 122/52 98 10/12/18 16:16 18 98 10/12/18 16:00 78 18 113/53 98 10/12/18 15:00 98.0 F 75 18 119/54 98 10/12/18 14:00 79 18 114/55 98 10/12/18 13:00 85 18 101/54 97 Intake and Output 10/12/18 10/13/1810/13/19 23:59 07:59 15:59 Intake Total 609 / 2058 747 / 1083 336 / 1083 Output Total 110 / 1005 335 / 385 50 / 385 Balance 499 / 1053 412 / 698 286 / 698 Intake: IV Fluids 289 / 1053 450 / 704 254 / 704 DOPamine Premix 400mg/250mL 400 250 / 250 mg In 250 ml @ 15 MCG/KG/MIN 63.056 mls/hr IVC .Q3H58M [facility] Rx#:[id number] FentaNYL (PF) 1,000 MCG In 0.9 100 / 100 % Sodium Chloride 80 ML @ 50 MCG/HR 5 mls/hr IVC CONT [facility] Rx #:[id number] Versed 50 MG In 0.9 % Sodium 99 / 99 Chloride 90 ML @ 2 MG/HR 4 mls/ hr IVC CONT [facility] Rx#:[id number] Levophed 4 MG In Dextrose 5% 254 / 254 250 ML @ 8 MCG/MIN 30.48 mls/hr IVC CONT [facility] Rx#:[id number] Maxipime 2,000 MG In Water for 40 / 40 inj. (sterile) 20 ML @ 300 mls/ hr IVP Q12H [facility] Rx#:[id number] Calcium Gluconate 1gm/50mL 1 gm 50 / 50 In 50 ml @ 50 mls/hr IVPB Q6HR PRN Rx#:[id number] Flagyl Premix 500 MG/100 ML 500 100 / 300 100 / 100 mg In 100 ml @ 100 mls/hr IVPB Q8HR [facility] Rx#:[id number] Tube Feeding 70 / 255 47 / 129 82 / 129 Blood Product 0 / 0 Rbcs Leuko Poor As-1 Unit 0 / 0 [id number] Other 250 / 750 250 / 250 Output: Rectal Tube 200 / 200 Catheter 110 / 305 135 / 185 50 / 185 Other: Weight 120.6 kg Blood Glucose* 167 159 149 Patient Weight 10/13/18 23:59 Weight 120.6 kg - Exam Exam: Constitiutional: Intubated. Sedated Vascular: 1/4 DP/PT RLE, CFT <3 sec to all digits RLE, warm to warm from tibia to toes RLE, L BKA Neurologic: normal plantar response Dermatologic: Richard grade II ulceration with undermining 360 degrees 0.3 cm, slough noted, no edema, no lymphangitis noted to right foot, erythema noted to RLE Musculoskeletal: normal tone LLE. - Lab Result Diagrams: 10/13/18 03:40 10/13/18 03:40 Labs: Abnormal lab results WBC 15.7 K/mcL (4.3-11.1) H 10/09/18 22:18 RBC 2.73 M/mcL (4.19-5.50) L 10/13/18 03:40 Hgb 7.8 g/dL (12.9-16.9) L 10/13/18 03:40 Hct 24.4 % (37.5-50.1) L 10/13/18 03:40 MCHC 31.4 g/dL (31.6-35.5) L 10/10/18 17:15 RDW 16.5 % (11.5-14.5) H 10/13/18 03:40 Plt Count 103 K/mcL (140-400) L 10/13/18 03:40 Band Neutrophils % 70.0 % (0-4) H 10/09/18 22:18 Neutrophils # 9.6 K/mcL (1.6-8.9) H 10/10/18 04:00 Lymphocytes # 0.5 K/mcL (0.6-4.6) L 10/11/18 04:05 ESR 79 mm/hr (0-10) H 10/10/18 18:56 PT 15.9 Seconds (9.4-12.1) H 10/13/18 03:40 APTT 43.1 Seconds (26.0-36.0) H 10/13/18 03:40 Fibrinogen 465 mg/dL (169-393) H 10/10/18 17:15 Heparin Anti-Xa, Unfract 0.26 IU/mL (0.30-0.70) L 10/09/18 22:18 ABG pCO2 34 mmHg (35-45) L 10/13/18 04:36 ABG pO2 52 mmHg (85-104) L 10/10/18 04:35 ABG O2 Saturation 87 % (95-98) L 10/10/18 04:35 ABG Base Excess -3 mEq/L (-2 to 3) L 10/13/18 04:36 VBG pO2 69 mmHg (25-50) H 10/09/18 22:28 Sodium 134 mEq/L (136-145) L 10/13/18 03:40 Carbon Dioxide 22 mEq/L (23-29) L 10/13/18 03:40 BUN 27 mg/dL (8-23) H 10/13/18 03:40 Creatinine 2.44 mg/dL (0.70-1.30) H 10/13/18 03:40 Est GFR ( Amer) 33 (> 60) L 10/13/18 03:40 Est GFR (Non-Af Amer) 27 (> 60) L 10/13/18 03:40 Glucose 129 mg/dL (70-105) H 10/13/18 03:40 POC Glucose 159 mg/dL (70-99) H 10/12/18 23:27 Calcium 7.5 mg/dL (8.6-10.3) L 10/13/18 03:40 Venous Ioniz Calcium 1.11 mmol/L (1.15-1.35) L 10/13/18 03:55 AST 66 Units/L (13-39) H 10/09/18 22:18 Lactate Dehydrogenase 286 Units/L (140-271) H 10/10/18 19:23 Troponin I 31.20 ng/mL (< 0.04) H* 10/10/18 12:00 C-Reactive Protein 209 mg/L (Less than 10) H 10/10/18 19:23 B-Natriuretic Peptide 868 pg/mL (Less than 100) H 10/09/18 22:18 Serum Total Protein 5.9 g/dL (6.4-8.9) L 10/13/18 03:40 Albumin 2.3 g/dL (3.5-5.7) L 10/13/18 03:40 Globulin 3.6 g/dL (2.4-3.5) H 10/13/18 03:40 Albumin/Globulin Ratio 0.6 (1.1-2.2) L 10/13/18 03:40 Procalcitonin 53.10 ng/mL (0.00-0.15) H 10/10/18 05:00 Urine Clarity Cloudy (Clear) A 10/10/18 00:42 Urine Protein >=300 mg/dL (Neg-Trace) H 10/10/18 00:42 Urine Ketones Trace mg/dL (Negative) H 10/10/18 00:42 Urine Blood Trace (Negative) H 10/10/18 00:42 Urine Bilirubin Moderate (Negative) H 10/10/18 00:42 Urine Microscopic RBC 3-5 per hpf (0-3) H 10/10/18 00:42 Urine Microscopic WBC 5-15 per hpf (0-3) H 10/10/18 00:42 Ur Squamous Epith Cells Many per lpf (None-Few) H 10/10/18 00:42 Hyaline Casts Many per lpf (None-Few) H 10/10/18 00:42 Nasal Screen MRSA (PCR) Positive (Negative) A 10/09/18 22:59 Stl C.diff Tox A&B Gene DETECTED (Not detect) A 10/09/18 13:59 Vancomycin Trough 23 mcg/mL (5-10) H 10/12/18 03:55 Crossmatch See Detail 10/09/18 22:18 Consult Discharge Plan - Plan Referrals: NONE,PCP [Primary Care Provider] -
[2018-10-13] MEDS: *HR* Heparin 5,000 UNIT/ML VIAL SQ SCH ×2 (15:15→22:16)
[2018-10-13] MEDS: Aspirin 81 MG TAB.CHEW PO SCH (15:15)
[2018-10-13 15:57] LABS: Sodium, Urine 14.3 mEq/L
[2018-10-13 17:33] LABS: Red Cell Distribution Width 15.9 % (11.5-14.5)
[2018-10-13 17:34] LABS: Basophils % 0.2 %; Eosinophils # 0.2 K/mcL (0.0-0.6); Eosinophils % 5.1 %; Hemoglobin 8.1 g/dL (12.9-16.9); Immature Platelets 2.8 % (1.1-6.1); Lymphocytes % 15.7 %; Mean Corpuscular HGB Conc 32.4 g/dL (31.6-35.5); Mean Corpuscular Hemoglobin 29.2 pg (28.0-33.3); Mean Corpuscular Volume 90.3 fL (83.0-100.0); Mean Platelet Volume 10.5 fL (9.4-12.4); Monocytes # 0.3 K/mcL (0.0-1.3); Monocytes % 7.7 %; Neutrophils # 2.9 K/mcL (1.6-8.9); Red Blood Count 2.77 M/mcL (4.19-5.50); Segmented Neutrophils % 70.3 %; White Blood Count 4.1 K/mcL (4.3-11.1)
[2018-10-13 17:39] LABS: Lymphocytes # 0.6 K/mcL (0.6-4.6); Platelet Count 84 K/mcL (140-400)
[2018-10-13 17:51] LABS: Calcium 7.3 mg/dL (8.6-10.3); Potassium 3.8 mEq/L (3.5-5.1)
[2018-10-13] MEDS: Cefepime HCl 1,000 MG in Water for inj. (sterile) 20 ML IVP SCH (20:08)
[2018-10-14] MEDS: Artificial Tears SOLN 15 ML BOTTLE BOTH EYES SCH ×2 (03:10→08:14)
[2018-10-14] MEDS: FentaNYL (PF) 1,000 MCG in 0.9 % Sodium Chloride 80 ML IVC SCH (03:10)
[2018-10-14] MEDS: Ipratropium/Albuterol Neb 3 ML IH SCH ×6 (04:01→23:22)
[2018-10-14 04:08] LABS: Basophils % 0.3 %; Eosinophils # 0.2 K/mcL (0.0-0.6); Eosinophils % 4.5 %; Hematocrit 24.5 % (37.5-50.1); Hemoglobin 7.9 g/dL (12.9-16.9); Immature Granulocytes % 0.8 % (0-4); Lymphocytes % 17.1 %; Mean Corpuscular HGB Conc 32.2 g/dL (31.6-35.5); Mean Corpuscular Hemoglobin 28.9 pg (28.0-33.3); Mean Corpuscular Volume 89.7 fL (83.0-100.0); Mean Platelet Volume 9.4 fL (9.4-12.4); Monocytes # 0.4 K/mcL (0.0-1.3); Monocytes % 10.9 %; Neutrophils # 2.5 K/mcL (1.6-8.9); Red Blood Count 2.73 M/mcL (4.19-5.50); Red Cell Distribution Width 16.2 % (11.5-14.5); Segmented Neutrophils % 66.4 %; White Blood Count 3.8 K/mcL (4.3-11.1)
[2018-10-14 04:10] LABS: Lymphocytes # 0.7 K/mcL (0.6-4.6); Platelet Count 76 K/mcL (140-400)
[2018-10-14 04:11] LABS: Platelet Estimate Marked Decrease (Normal)
[2018-10-14 04:33] LABS: Calcium 7.4 mg/dL (8.6-10.3); Magnesium 2.1 mg/dL (1.6-2.6); Phosphorous 3.6 mg/dL (2.7-4.5); Potassium 4.3 mEq/L (3.5-5.1)
[2018-10-14] MEDS: *HR* Heparin 5,000 UNIT/ML VIAL SQ SCH ×3 (05:54→20:30)
[2018-10-14] MEDS: Pantoprazole 40 MG VIAL IVP SCH (05:54)
[2018-10-14 05:55] LABS: ABG Base Excess -4 mEq/L (-2 to 3); ABG HCO3 21 mEq/L (21-27); ABG Oxygen Saturation 90 % (95-98); ABG PCO2 39 mmHg (35-45); ABG PH 7.34 pH Units (7.32-7.45); ABG PO2 61 mmHg (85-104); ABG TCO2 22 mEq/L (20-26); Blood Gas PEEP 5 cm H2O; Blood Gas VT 450 cc
[2018-10-14] MEDS: Insulin LISPRO 300 UNITS/3 ML VIAL SQ SCH ×4 (06:06→23:40)
--- NOTE | 2018-10-14 06:50 | Pulmonology Progress Note ---
<EvangelistChanelle M - Last Filed: 10/14/18 15:40> Date of Encounter: 10/14/18 Objective PUL Vital signs: Last Vital Signs Temp 97.4 F L 10/14/18 12:53 Pulse 64 10/14/18 12:53 Resp 20 10/14/18 12:53 BP 127/60 10/14/18 12:53 Pulse Ox 95 10/14/18 12:53 Ventilator Settings Ventilator Settings: Ventilator Settings, Last 8 Hours Actual Respiratory Rate 17 Positive End Expiratory 5 Pressure Peak Inspiratory Airway 11 Pressure Results - Laboratory Findings CBC and BMP: 10/14/18 03:56 10/14/18 03:56 ABG ABG pH 7.34 pH Units (7.32-7.45) 10/14/18 05:01 ABG pCO2 39 mmHg (35-45) 10/14/18 05:01 ABG pO2 61 mmHg (85-104) L 10/14/18 05:01 ABG O2 Saturation 90 % (95-98) L 10/14/18 05:01 PT/INR, D-dimer PT 15.9 Seconds (9.4-12.1) H 10/13/18 03:40 Abnormal lab findings: Abnormal lab results WBC 3.8 K/mcL (4.3-11.1) L 10/14/18 03:56 RBC 2.73 M/mcL (4.19-5.50) L 10/14/18 03:56 Hgb 7.9 g/dL (12.9-16.9) L 10/14/18 03:56 Hct 24.5 % (37.5-50.1) L 10/14/18 03:56 MCHC 31.4 g/dL (31.6-35.5) L 10/10/18 17:15 RDW 16.2 % (11.5-14.5) H 10/14/18 03:56 Plt Count 76 K/mcL (140-400) L 10/14/18 03:56 Band Neutrophils % 70.0 % (0-4) H 10/09/18 22:18 Neutrophils # 9.6 K/mcL (1.6-8.9) H 10/10/18 04:00 Lymphocytes # 0.5 K/mcL (0.6-4.6) L 10/11/18 04:05 Platelet Estimate Marked Decrease (Normal) L 10/14/18 03:56 ESR 79 mm/hr (0-10) H 10/10/18 18:56 PT 15.9 Seconds (9.4-12.1) H 10/13/18 03:40 APTT 43.1 Seconds (26.0-36.0) H 10/13/18 03:40 Fibrinogen 465 mg/dL (169-393) H 10/10/18 17:15 Heparin Anti-Xa, Unfract 0.26 IU/mL (0.30-0.70) L 10/09/18 22:18 ABG pCO2 34 mmHg (35-45) L 10/13/18 04:36 ABG pO2 61 mmHg (85-104) L 10/14/18 05:01 ABG O2 Saturation 90 % (95-98) L 10/14/18 05:01 ABG Base Excess -4 mEq/L (-2 to 3) L 10/14/18 05:01 VBG pO2 69 mmHg (25-50) H 10/09/18 22:28 Sodium 134 mEq/L (136-145) L 10/14/18 03:56 Carbon Dioxide 22 mEq/L (23-29) L 10/14/18 03:56 BUN 32 mg/dL (8-23) H 10/14/18 03:56 Creatinine 2.76 mg/dL (0.70-1.30) H 10/14/18 03:56 Est GFR ( Amer) 28 (> 60) L 10/14/18 03:56 Est GFR (Non-Af Amer) 23 (> 60) L 10/14/18 03:56 Glucose 125 mg/dL (70-105) H 10/14/18 03:56 POC Glucose 137 mg/dL (70-99) H 10/13/18 23:43 Calcium 7.4 mg/dL (8.6-10.3) L 10/14/18 03:56 Venous Ioniz Calcium 1.10 mmol/L (1.15-1.35) L 10/14/18 04:07 AST 66 Units/L (13-39) H 10/09/18 22:18 Lactate Dehydrogenase 286 Units/L (140-271) H 10/10/18 19:23 Troponin I 31.20 ng/mL (< 0.04) H* 10/10/18 12:00 C-Reactive Protein 209 mg/L (Less than 10) H 10/10/18 19:23 B-Natriuretic Peptide 868 pg/mL (Less than 100) H 10/09/18 22:18 Serum Total Protein 5.9 g/dL (6.4-8.9) L 10/13/18 03:40 Albumin 2.0 g/dL (3.5-5.7) L 10/14/18 03:56 Globulin 3.6 g/dL (2.4-3.5) H 10/13/18 03:40 Albumin/Globulin Ratio 0.6 (1.1-2.2) L 10/13/18 03:40 Procalcitonin 53.10 ng/mL (0.00-0.15) H 10/10/18 05:00 Urine Clarity Cloudy (Clear) A 10/10/18 00:42 Urine Protein >=300 mg/dL (Neg-Trace) H 10/10/18 00:42 Urine Ketones Trace mg/dL (Negative) H 10/10/18 00:42 Urine Blood Trace (Negative) H 10/10/18 00:42 Urine Bilirubin Moderate (Negative) H 10/10/18 00:42 Urine Microscopic RBC 3-5 per hpf (0-3) H 10/10/18 00:42 Urine Microscopic WBC 5-15 per hpf (0-3) H 10/10/18 00:42 Ur Squamous Epith Cells Many per lpf (None-Few) H 10/10/18 00:42 Hyaline Casts Many per lpf (None-Few) H 10/10/18 00:42 Protein/Creatinin Ratio 1.00 mg/mg (0.00-0.20) H 10/13/18 15:30 Urine Total Protein 103 mg/dL (1-14) H 10/13/18 15:30 Nasal Screen MRSA (PCR) Positive (Negative) A 10/09/18 22:59 Stl C.diff Tox A&B Gene DETECTED (Not detect) A 10/09/18 13:59 Vancomycin Trough 23 mcg/mL (5-10) H 10/12/18 03:55 Crossmatch See Detail 10/14/18 11:05 - Clinical Findings Intake & Output: Intake & Output 10/13/18 10/14/18 10/14/18 23:59 07:59 15:59 Intake Total 405 / 2223 283 / 428 145 / 428 Output Total 75 / 460 60 / 80 20 / 80 Balance 330 / 1763 223 / 348 125 / 348 Weight 121.1 kg Consult Discharge Plan - Plan Referrals: NONE,PCP [Primary Care Provider] - - Attending Attestation I examined this patient and my medical decision-making was reviewed with the Resident Physician. I agree with the documented findings, disposition and treatment plan as described except to the extent set forth below. Patient seen and examined. Labs, radiology, chart personally reviewed. 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 Patient was successfully extubated and will have close monitor and continue observing ICU. Cardiovascular: Relatively stable , will have management for his cardiac disease to compounding scaler regarding treatment. GI: Nutrition per dietary and GI prophylaxis per routine Heme: DVT prophylaxis per routine ID: Continue antibiotics and plan to de-escalation Renal; urine out put and renal function reviewed Endorcine: blood glucose is monitored Lines: all lines checked and no evidence of infections Skin: skin care to prevent pressure ulcers per nursing routine care Dispo: ICU Code: Full. Prognosis. Guarded I spent 32 min of Critical Care time with this patient. It involved decision making of high complexity to assess, manipulate, and support vital organ system failure and/or to prevent further life threatening deterioration of the patient's condition. The time involved in the performance of separately reportable procedures was not counted toward critical care time. <Fany Dominguez R - Last Filed: 10/14/18 17:59> Date of Encounter: 10/14/18 Time of Encounter: 06:50 Assessment and Plan (1) Acute [place] Current Visit: Yes Status: Acute Patient found to have significant elevation in his troponin with troponin less than upper limit of normal at [facility] and upon arrival to [facility] was found to have troponin of 30.22 and repeat 30.47 Echocardiogram limited was obtained which shows EF of 25% which is a significant drop from previous in 06/19/18 which had a EF of 60-65% The patient does have a long history of cardiac disease and has undergone CABG in 2001 Patient underwent catheterization and a bare metal stent was placed in the saphenous venous graft OM1 on 10/10/18 Continuing on aspirin and Plavix SQ heparin with further monitoring of potential bleeding Dopamine for hypotension was DC'd Transfusion of PRBCs as pt can tolerate for better perfusion Qualifiers: Myocardial infarction type: unspecified Involved coronary artery: unspecified coronary artery Qualified Code(s): I21.9 - Acute myocardial infarction, unspecified (2) C. difficile diarrhea Current Visit: Yes Status: Suspected Per family this started as an outpatient. Will continue with oral Flagyl and vancomycin orally Rectal vanc DC'd per ID Patient is C. diff positive on lab draw but culture negative C. diff toxin negative CT abdomen/pelvis shows large bilateral effusions, cirrhotic morphology of the liver with mild splenomegaly along with ascites. There is no evidence of toxic megacolon, but there is wall thickening of the sigmoid colon Pt has not had diarrhea for 4 days ID following - appreciate recommendations (3) Acute exacerbation of CHF (congestive heart failure) Current Visit: Yes Status: Acute Patient had acute decompensation of his heart failure likely secondary to subacute versus acute myocardial infarction EF on limited echo was 25%, of a significant decrease from May 2018 when it was 60-65% Will continue with diuresis as kidneys can tolerate Continues to remain ventilated and sedated but responsive CXR shows slightly improving pulmonary edema Continue other treatment as above Qualifiers: Heart failure type: systolic Qualified Code(s): I50.23 - Acute on chronic systolic (congestive) heart failure (4) Acute on chronic kidney failure Current Visit: Yes Status: Acute CKD stage 3 with baseline Cre appx 1.5 Kidney function continues to decline Cre today 2.76 Improved urinary output 3 days ago, but urine output yesterday was decreased Lasix given two days ago without significant effect Consultation to nephrology was placed yesterday - appreciate recommendations Continue to avoid nephrotoxic agents Will transfuse one unit of blood at a time to increase hgb towards 10 without increasing volume overloaded status Qualifiers: Acute renal failure type: unspecified Chronic kidney disease stage: stage 3 (moderate) Qualified Code(s): N17.9 - Acute kidney failure, unspecified; N18.3 - Chronic kidney disease, stage 3 (moderate) (5) Acute respiratory failure Current Visit: Yes Status: Acute Pt transferred from [facility] due to respiratory failure, arrived on BiPAP Was initially tolerating BiPAP but was eventually intubated due to fatigure and the need for the patient to lie down for cardiac catheterization Pt intubated at 0030 on 10/10/18 Pt was extubated today at 0850 and has been tolerating extubation well He remains fluid overloaded and diuresis has slowed secondary to renal failure Pt is at moderate risk re-intubation during this stay Will do a trial of BiPAP if he begins to fatigue again Qualifiers: Respiratory failure complication: unspecified whether with hypoxia or hypercapnia Qualified Code(s): J96.00 - Acute respiratory failure, unspecified whether with hypoxia or hypercapnia (6) Chronic venous hypertension w/ulcer and inflammation involv both sides Current Visit: Yes Status: Chronic ID, podiatry and wound care following, appreciate recommendations RLE with dressing C/D/I Left BKA (7) Acute on chronic blood loss anemia Current Visit: Yes Status: Acute Chronic anemia at baseline of 8-9 Pt received 2 units PRBCs on initial visit Hemoglobin stable after Cath, continue to monitor Transfused 1 unit yesterday to help with GILES on CKD Hgb today 7.9, will transfuse another unit and recheck hgb (8) Pneumonia Current Visit: Yes Status: Acute Sputum cultures with NGTD Procal significantly elevated at 53.1 Continue Cefepime, flagyl and Vancomycin ID following - appreciate recommendations Consolidation is likely pleural effusion but cannot rule out PNA at this time Qualifiers: Pneumonia type: due to unspecified organism Laterality: unspecified laterality Lung location: unspecified part of lung Qualified Code(s): J18.9 - Pneumonia, unspecified organism (9) Thrombocytopenia Current Visit: Yes Status: Acute Pt hs had slowly decreasing platelet levels Today plts 76 Continue to monitor If drop below 50 we will DC Heparin (10) COPD (chronic obstructive pulmonary disease) Current Visit: Yes Status: Acute Continue Duonebs q4H, Symbicort and Singulair Qualifiers: COPD type: unspecified COPD Qualified Code(s): J44.9 - Chronic obstructive pulmonary disease, unspecified (11) Right foot ulcer Current Visit: Yes Status: Chronic Podiatry and wound care following - appreciate recommendations Pt grew GNR from swab on 10/08/18 - Hx of Staph aureus and pseudomonas On Vanc and Cefepime Qualifiers: Non-pressure ulcer stage: limited to breakdown of skin Qualified Code(s): L97.511 - Non-pressure chronic ulcer of other part of right foot limited to breakdown of skin (12) Hypertension Current Visit: Yes Status: Chronic Home meds held secondary to hypotension Qualifiers: Hypertension type: essential hypertension Qualified Code(s): I10 - Essential (primary) hypertension (13) Diabetes Current Visit: Yes Status: Chronic Continue home meds Continue Accu-Cheks q6H Low dose SSI Qualifiers: Diabetes mellitus type: type 2 Diabetes mellitus salvage determiner insulin use: with salvage determiner use Diabetes mellitus complication status: with skin complications Diabetes mellitus complication detail: with foot ulcer Qualified Code(s): E11.621 - Type 2 diabetes mellitus with foot ulcer; L97.509 - Non-pressure chronic ulcer of other part of unspecified foot with unspecified severity; Z79.4 - salvage determiner (current) use of insulin (14) DVT prophylaxis Current Visit: Yes Status: Acute Will start SQ Heparin and continue to monitor Hgb Subjective Principal diagnosis: CHF, AMI, C-Diff, GILES Interval history: Pt remains intubated but is awake and responds to stimuli. Dopamine was stopped last night and pressures have remained stable. Hgb did not greatly improve with one unit of PRBCs yesterday and hgb today is 7.9. We will transfuse another unit and recheck hgb after transfusion but will try to avoid further fluid overload. Creatinine continues to worsen and is 2.76 on morning labs. Pt has had episodes of bradycardia that have self resolved, with the lowest heart rate recorded 38bpm. A stat EKG was ordered which showed afib with an IVCD but no ST segment changes and old [place] present in the anterior leads. Objective PUL Vital signs: Last Vital Signs Temp 99.0 F 10/14/18 03:50 Pulse 77 10/14/18 06:00 Resp 17 10/14/18 06:00 BP 113/49 10/14/18 06:00 Pulse Ox 96 10/14/18 06:00 General appearance: asleep Eyes: nonicteric Effort: normal Auscultation: bilateral: diminished breath sounds, rales Cardiovascular: regular rate and rhythm Gastrointestinal: soft, tender Extremities: pink and warm, edema (1+ pitting edema of RLE), other (left BKA) pupils equal and round Ventilator Settings Ventilator Settings: Ventilator Settings, Last 8 Hours Ventilator Tidal Volume 450 Setting Ventilator Tidal Volume 450 Setting Ventilator Tidal Volume 450 Setting Ventilator Tidal Volume 450 Setting Ventilator Tidal Volume 450 Setting Ventilator Tidal Volume 450 Setting Ventilator Tidal Volume 450 Setting Ventilator Tidal Volume 450 Setting Ventilator Tidal Volume 450 Setting Ventilator Tidal Volume 450 Setting Ventilator Tidal Volume 450 Setting Ventilator Tidal Volume 450 Setting Ventilator Tidal Volume 450 Setting Ventilator Respiratory Rate 14 Setting Ventilator Respiratory Rate 14 Setting Ventilator Respiratory Rate 14 Setting Ventilator Respiratory Rate 14 Setting Ventilator Respiratory Rate 14 Setting Ventilator Respiratory Rate 14 Setting Ventilator Respiratory Rate 14 Setting Ventilator Respiratory Rate 14 Setting Ventilator Respiratory Rate 14 Setting Ventilator Respiratory Rate 14 Setting Ventilator Respiratory Rate 14 Setting Ventilator Respiratory Rate 14 Setting Ventilator Respiratory Rate 14 Setting Actual Respiratory Rate 17 Actual Respiratory Rate 14 Actual Respiratory Rate 14 Actual Respiratory Rate 17 Actual Respiratory Rate 16 Actual Respiratory Rate 18 Actual Respiratory Rate 19 Actual Respiratory Rate 19 Actual Respiratory Rate 20 Actual Respiratory Rate 14 Actual Respiratory Rate 15 Actual Respiratory Rate 19 Positive End Expiratory 5 Pressure Positive End Expiratory 5 Pressure Positive End Expiratory 5 Pressure Positive End Expiratory 5 Pressure Positive End Expiratory 5 Pressure Positive End Expiratory 5 Pressure Positive End Expiratory 5 Pressure Positive End Expiratory 5 Pressure Positive End Expiratory 5 Pressure Positive End Expiratory 5 Pressure Positive End Expiratory 5 Pressure Positive End Expiratory 5 Pressure Positive End Expiratory 5 Pressure Peak Inspiratory Airway 20 Pressure Peak Inspiratory Airway 29 Pressure Peak Inspiratory Airway 20 Pressure Peak Inspiratory Airway 9.2 Pressure Peak Inspiratory Airway 10 Pressure Peak Inspiratory Airway 17 Pressure Peak Inspiratory Airway 21 Pressure Peak Inspiratory Airway 19 Pressure Peak Inspiratory Airway 21 Pressure Peak Inspiratory Airway 25 Pressure Peak Inspiratory Airway 21 Pressure Peak Inspiratory Airway 19 Pressure Results - Laboratory Findings CBC and BMP: 10/14/18 03:56 10/14/18 03:56 ABG ABG pH 7.34 pH Units (7.32-7.45) 10/14/18 05:01 ABG pCO2 39 mmHg (35-45) 10/14/18 05:01 ABG pO2 61 mmHg (85-104) L 10/14/18 05:01 ABG O2 Saturation 90 % (95-98) L 10/14/18 05:01 PT/INR, D-dimer PT 15.9 Seconds (9.4-12.1) H 10/13/18 03:40 Abnormal lab findings: Abnormal lab results WBC 3.8 K/mcL (4.3-11.1) L 10/14/18 03:56 RBC 2.73 M/mcL (4.19-5.50) L 10/14/18 03:56 Hgb 7.9 g/dL (12.9-16.9) L 10/14/18 03:56 Hct 24.5 % (37.5-50.1) L 10/14/18 03:56 MCHC 31.4 g/dL (31.6-35.5) L 10/10/18 17:15 RDW 16.2 % (11.5-14.5) H 10/14/18 03:56 Plt Count 76 K/mcL (140-400) L 10/14/18 03:56 Band Neutrophils % 70.0 % (0-4) H 10/09/18 22:18 Neutrophils # 9.6 K/mcL (1.6-8.9) H 10/10/18 04:00 Lymphocytes # 0.5 K/mcL (0.6-4.6) L 10/11/18 04:05 Platelet Estimate Marked Decrease (Normal) L 10/14/18 03:56 ESR 79 mm/hr (0-10) H 10/10/18 18:56 PT 15.9 Seconds (9.4-12.1) H 10/13/18 03:40 APTT 43.1 Seconds (26.0-36.0) H 10/13/18 03:40 Fibrinogen 465 mg/dL (169-393) H 10/10/18 17:15 Heparin Anti-Xa, Unfract 0.26 IU/mL (0.30-0.70) L 10/09/18 22:18 ABG pCO2 34 mmHg (35-45) L 10/13/18 04:36 ABG pO2 61 mmHg (85-104) L 10/14/18 05:01 ABG O2 Saturation 90 % (95-98) L 10/14/18 05:01 ABG Base Excess -4 mEq/L (-2 to 3) L 10/14/18 05:01 VBG pO2 69 mmHg (25-50) H 10/09/18 22:28 Sodium 134 mEq/L (136-145) L 10/14/18 03:56 Carbon Dioxide 22 mEq/L (23-29) L 10/14/18 03:56 BUN 32 mg/dL (8-23) H 10/14/18 03:56 Creatinine 2.76 mg/dL (0.70-1.30) H 10/14/18 03:56 Est GFR ( Amer) 28 (> 60) L 10/14/18 03:56 Est GFR (Non-Af Amer) 23 (> 60) L 10/14/18 03:56 Glucose 125 mg/dL (70-105) H 10/14/18 03:56 POC Glucose 137 mg/dL (70-99) H 10/13/18 23:43 Calcium 7.4 mg/dL (8.6-10.3) L 10/14/18 03:56 Venous Ioniz Calcium 1.10 mmol/L (1.15-1.35) L 10/14/18 04:07 AST 66 Units/L (13-39) H 10/09/18 22:18 Lactate Dehydrogenase 286 Units/L (140-271) H 10/10/18 19:23 Troponin I 31.20 ng/mL (< 0.04) H* 10/10/18 12:00 C-Reactive Protein 209 mg/L (Less than 10) H 10/10/18 19:23 B-Natriuretic Peptide 868 pg/mL (Less than 100) H 10/09/18 22:18 Serum Total Protein 5.9 g/dL (6.4-8.9) L 10/13/18 03:40 Albumin 2.0 g/dL (3.5-5.7) L 10/14/18 03:56 Globulin 3.6 g/dL (2.4-3.5) H 10/13/18 03:40 Albumin/Globulin Ratio 0.6 (1.1-2.2) L 10/13/18 03:40 Procalcitonin 53.10 ng/mL (0.00-0.15) H 10/10/18 05:00 Urine Clarity Cloudy (Clear) A 10/10/18 00:42 Urine Protein >=300 mg/dL (Neg-Trace) H 10/10/18 00:42 Urine Ketones Trace mg/dL (Negative) H 10/10/18 00:42 Urine Blood Trace (Negative) H 10/10/18 00:42 Urine Bilirubin Moderate (Negative) H 10/10/18 00:42 Urine Microscopic RBC 3-5 per hpf (0-3) H 10/10/18 00:42 Urine Microscopic WBC 5-15 per hpf (0-3) H 10/10/18 00:42 Ur Squamous Epith Cells Many per lpf (None-Few) H 10/10/18 00:42 Hyaline Casts Many per lpf (None-Few) H 10/10/18 00:42 Protein/Creatinin Ratio 1.00 mg/mg (0.00-0.20) H 10/13/18 15:30 Urine Total Protein 103 mg/dL (1-14) H 10/13/18 15:30 Nasal Screen MRSA (PCR) Positive (Negative) A 10/09/18 22:59 Stl C.diff Tox A&B Gene DETECTED (Not detect) A 10/09/18 13:59 Vancomycin Trough 23 mcg/mL (5-10) H 10/12/18 03:55 Crossmatch See Detail 10/09/18 22:18 - Clinical Findings Intake & Output: Intake & Output 10/13/18 10/13/18 10/14/18 15:59 23:59 07:59 Intake Total 1071 / 2223 405 / 2223 267 / 267 Output Total 50 / 460 75 / 460 40 / 40 Balance 1021 / 1763 330 / 1763 227 / 227 Weight 121.1 kg
[2018-10-14] MEDS: Budesonide/Formoterol 160/4.5 1 PUFF INH IH SCH ×2 (07:26→20:05)
[2018-10-14] MEDS: Chlorhexidine Rinse 15 ML MOUTHWASH MM SCH (08:13)
[2018-10-14] MEDS: Cefepime HCl 1,000 MG in Water for inj. (sterile) 20 ML IVP SCH ×2 (08:13→20:30)
[2018-10-14] MEDS: MetroNIDAZOLE 500 MG/100 ML 500 MG/100 ML BAG IVPB SCH ×3 (08:13→23:40)
[2018-10-14] MEDS: Aspirin 81 MG TAB.CHEW PO SCH (08:14)
[2018-10-14] MEDS: Vancomycin Oral Soln 125 MG/2.5 ML UDC PO SCH ×4 (08:14→19:31)
--- NOTE | 2018-10-14 09:24 | Nephrology Progress Note ---
Date of Encounter: 10/14/18 Time of Encounter: 08:45 - Assessment and Plan (1) Acute on chronic kidney failure Current Visit: Yes Status: Acute GILES on CKD with variable renal function prior to admission. Has had dialysis for acute kidney injury in the past. Likely secondary to multiple factors including sepsis and contrast exposure and at risk for hepatorenal syndrome due to cirrhosis Patient has low urine output at this time, 260ml yesterday, 60 mls so far today Currently no need for dialysis but will continue to monitor Goal hemoglobin above 10, would advise further transfusion for this goal to be met Patient was extubated today, continued on versed for presser support- goal to keep MAP above 65 Continue renally protective strategies, renally dose medications as appropriate, avoid nephrotoxic agents if possible Qualifiers: Acute renal failure type: unspecified Chronic kidney disease stage: stage 3 (moderate) Qualified Code(s): N17.9 - Acute kidney failure, unspecified; N18.3 - Chronic kidney disease, stage 3 (moderate) (2) Acute on chronic blood loss anemia Current Visit: Yes Status: Acute (3) Acute exacerbation of CHF (congestive heart failure) Current Visit: Yes Status: Acute Qualifiers: Heart failure type: systolic Qualified Code(s): I50.23 - Acute on chronic systolic (congestive) heart failure (4) Acute IA Current Visit: Yes Status: Acute Qualifiers: Myocardial infarction type: unspecified Involved coronary artery: unspecified coronary artery Qualified Code(s): I21.9 - Acute myocardial infarction, unspecified (5) Septic shock Current Visit: Yes Status: Acute (6) DM type 2 (diabetes mellitus, type 2) Current Visit: Yes Status: Chronic Qualifiers: Diabetes mellitus terminal system operator insulin use: without terminal system operator use Diabetes mellitus complication status: without complication Qualified Code(s): E11.9 - Type 2 diabetes mellitus without complications (7) Hypertension Current Visit: Yes Status: Chronic Qualifiers: Hypertension type: essential hypertension Qualified Code(s): I10 - Essential (primary) hypertension Subjective Principal diagnosis: CHF, AMI, C-Diff, GILES Interval history: Mr. Chow is a 63 yo male with GILES, Acute IA, CHF, Anemia, and Hypertension. Patient has just been extubated when I examined him. He was awake with eyes open, did not answer questions but was able to follow the command "squeeze my hand" with some minimal movement of his left hand. Patients urine output yesterday was 260ml and so far today ahs been 60ml. NA 134 stady, K 4.3 increased form 3.8 yesterday, Cl 105 slightly decreased from 106 yesterday, BUN increased to 32 from 29 yesterday, SCr increased to 2.76 from 2.42 yesterday, GFR decreased to 23 from 27. Hgb slightly decreased to 7.8 from 8.1 yesterday. Objective - Vital Signs Vital signs: Vital Signs Temp Pulse Resp BP Pulse Ox 10/14/18 08:00 80 17 126/61 93 10/14/18 07:41 97.6 F 10/14/18 07:20 23 102/52 95 10/14/18 07:00 73 22 112/56 95 10/14/18 06:00 77 17 113/49 96 10/14/18 05:13 14 110/49 94 10/14/18 05:00 72 14 108/51 96 10/14/18 04:01 16 110/49 94 10/14/18 04:00 83 16 110/49 94 10/14/18 03:50 99.0 F 10/14/18 03:00 78 18 119/57 97 10/14/18 02:00 88 19 103/50 96 10/14/18 01:20 20 118/50 96 10/14/18 01:00 90 20 119/52 96 10/14/18 00:14 98.6 F 10/14/18 00:00 85 14 111/51 96 10/13/18 23:30 83 10/13/18 23:20 15 117/54 96 10/13/18 23:00 88 19 115/50 95 10/13/18 22:00 82 15 111/53 96 10/13/18 21:58 15 117/56 94 10/13/18 21:00 85 16 112/55 96 10/13/18 20:09 97.5 F L 10/13/18 20:00 77 14 115/55 96 10/13/18 19:59 14 115/55 96 10/13/18 19:00 80 14 123/62 96 10/13/18 18:00 69 14 110/56 96 10/13/18 17:48 14 96 10/13/18 17:00 61 14 107/56 97 10/13/18 16:00 96.8 F L 61 14 100/57 96 10/13/18 15:21 14 98 10/13/18 15:00 62 14 108/57 98 10/13/18 14:00 60 14 105/60 98 10/13/18 13:24 14 97 10/13/18 13:00 63 14 104/55 98 10/13/18 12:09 96.4 F L 65 14 112/54 99 10/13/18 12:00 96.5 F L 63 14 112/54 99 10/13/18 11:54 96.5 F L 65 14 112/51 98 10/13/18 11:50 96.5 F L 10/13/18 11:12 14 96 10/13/18 11:00 67 14 114/56 98 10/13/18 10:00 66 14 119/47 98 10/13/18 09:39 14 99 Intake and Output 10/13/18 10/14/18 10/14/18 23:59 07:59 15:59 Intake Total 405 / 2223 267 / 267 Output Total 75 / 460 60 / 60 Balance 330 / 1763 207 / 207 Intake: IV Fluids 220 / 1309 200 / 200 DOPamine Premix 400mg/250mL 400 0 / 0 mg In 250 ml @ 15 MCG/KG/MIN 63.056 mls/hr IVC .Q3H58M [facility] Rx#:[id number] FentaNYL (PF) 1,000 MCG In 0.9 100 / 100 % Sodium Chloride 80 ML @ 50 MCG/HR 5 mls/hr IVC CONT [facility] Rx #:[id number] Versed 50 MG In 0.9 % Sodium 100 / 100 Chloride 90 ML @ 2 MG/HR 4 mls/ hr IVC CONT [facility] Rx#:[id number] Maxipime 1,000 MG In Water for 20 / 20 inj. (sterile) 20 ML @ 300 mls/ hr IVP Q12H [facility] Rx#:[id number] Flagyl Premix 500 MG/100 ML 500 100 / 300 100 / 100 mg In 100 ml @ 100 mls/hr IVPB Q8HR [facility] Rx#:[id number] Tube Feeding 185 / 314 67 / 67 Output: Stool 0 / 0 Rectal Tube 0 / 200 0 / 0 Catheter 75 / 260 60 / 60 Other: Weight 121.1 kg Blood Glucose* 155 137 Patient Weight 10/14/18 23:59 Weight 121.1 kg - General Appearance General appearance: Present: well-developed, well-nourished, moderate distress EENT: Present: mucous membranes dry Neck: Present: no JVD, supple Respiratory: Present: wheezing (throughout), rales (lower lobes) Cardiology: Present: no murmurs, no rub, no gallops, edema (2+ mid casas), regular rate, regular rhythm Gastrointestinal: Present: normoactive bowel sounds, tenderness (midepigastric to light palpation) Integumentary: Present: no rash, warm and dry - Lab 10/14/18 03:56 10/14/18 03:56 Most recent lab results 10/14/18 10/14/18 03:56 05:01 ABG pH 7.34 ABG pCO2 39 ABG pO2 61 L ABG HCO3 21 ABG O2 Saturation 90 L Calcium 7.4 L Phosphorus 3.6 Magnesium 2.1 Consult Discharge Plan - Plan Referrals: NONE,PCP [Primary Care Provider] -
--- NOTE | 2018-10-14 10:24 | Infectious Disease Progress No ---
ID Progress Note Date of Encounter: 10/14/18 Time of Encounter: 11:30 - Subjective Subjective: Patient is seen and examined at the bedside. He is off the pressors, extubated and is currently on no 4 L of nasal cannula, with a MAP of 75. he continues to be afebrile he is on no day 5 of IV 500MG Flagyl, day 5 of IV 2 g cefepime, day 3 of PO vancomycin 500 mg QID. Right leg cellulitis looks clean with no bleeding or serosanguineous discharge. Patient's vancomycin has been known de- escalate his from 500 mg to 125 mg 4 times a day. - Objective CBC & Chem 7: 10/16/18 03:08 10/16/18 03:08 - Exam Vitals: Temp Pulse Resp BP Pulse Ox 97.6 F 73 14 105/50 96 10/14/18 07:41 10/14/18 09:00 10/14/18 09:00 10/14/18 09:00 10/14/18 09:00 Exam: Gen.: Vitals noted. No acute distress. On 4L NC HEENT: oropharynx clear, Normocephalic, atraumatic, MMM Neck: supple, no JVD, no lymphadenopathy, no carotid bruit. Cardiac: RRR, no murmur, +S1/S2, No BLE edema, PMI non-displaced Pulmonary: bilateral wheezing, no rales or rhonchi, equal chest expansion Abdomen: soft, nontender, BS noted, no guarding, undistended. No organomegaly, no pulsatile masses, Skin: R leg cellulites drapped in bandage, warm and dry Extremities: Left leg amputated, R leg cellulites drapped in bandage, warm and dry MSK: ROM not assessed. no joint swelling noted, gait not assessed while in bed. Non tender calf or clubbing, no cyanosis/clubbing/ or edema Neuro: A&O, moves all extremities, no focal deficits, sensation intact - Assessment and Plan (1) Shock Current Visit: Yes Status: Acute -Resolved , patient currently extubated and off pressors -Was Likely cardiogenic in nature -Patient was transferred from [facility] to ICU because of diarrheal episodes for the past 2 weeks accompanied by abdominal pain -Pertinent Vitals /Labs on admission: Temp: 99.9, Pulse: 97, RR: 27, WBC: 15.7, Band neutrophils 70%, Lactate : 2.1, BNP: 2898. -Pertinent Vitals /Labs now: Temp: 97.8, Pulse: 69, RR: 14, WBC: 4.1 -He also has a right leg cellulitis- no evidence of any bleeding or serosanguineous discharge -10/09/18 Chest x-ray showed bilateral mild and lower lung airspace disease and bilateral pleural effusion with concerns for pulmonary edema -10/10/18 Abdomen /Pelvic CT revealed wall thickening of the sigmoid colon likely related to lack of distention. Correlation for colitis is recommended -Currently on day 4 of IV 2g cefepime, day 3 of PO 500mg vancomycin, day 5 of IV 500 mg Flagyl PLAN -Continue PO Vancomycin but dose has reduced from 500 to 125 PO QID -Continue cefepime 2 g IV every 12 hours for a total of 10-14 days -Continue IV Flagyl 500mg q8h SNOMED Code(s): 14248243 (2) C. difficile diarrhea Current Visit: Yes Status: Acute -Patient has a history of associated diarrhea . -He was treated in the hospital in the month of June for C. difficile and was on discharged vancomycin taper. -Has been afebrile since admission, with white blood count of 15.7 at [facility] currently WBC is 4.1 -Stool C. difficile toxin A&B was detected . -And has a rectal tube in place with 200 mL of output -CT abdominal pelvis did not show any evidence for toxic megacolon but there was wall thickening of the sigmoid colon PLAN: -Continue vancomycin 125mg PO QID SNOMED Code(s): 7128532601210 (3) Cellulitis of right leg Current Visit: Yes Status: Acute -Patient has a history of cellulitis of the right leg -10/08/18 recent wound culture grew gram-negative rods, sensitivity pending - 06/21/18 would culture grew : S aureus, Pseudomonas aeruginosa - P aeruginosa: S: Cefepime, ceftazidime, ciprofloxacin, gentamicin, independent, levofloxacin, Zosyn, tobramycin - S auerus: S - daptomycin, doxycycline, gentamicin, oxacillin, rifampin, tetracycline, Zosyn, vancomycin - 06/18/18 would culture grew : Group B strep, Pseudomonas aeruginosa which were pansensitive -Patient is not afebrile at the moment , His white blood count trending down from 15.7 yesterday to 9.3 today. -Currently on day 5 of Cefepime 2g IV q 12 h for total of 10-14 days - SNOMED Code(s): 246870031 (4) Pneumonia Current Visit: Yes Status: Acute Procal significantly elevated at 53.1 10/11/18: CXR Consolidation is likely pleural efusion but cannot rule out pneumonia at this time Currently on day 5 of IV 500mg Flagyl, day 5 of 2gm cefepime . Qualifiers: Pneumonia type: due to unspecified organism Laterality: unspecified laterality Lung location: unspecified part of lung Qualified Code(s): J18.9 - Pneumonia, unspecified organism SNOMED Code(s): 599586565 (5) NSTEMI (non-ST elevated myocardial infarction) Current Visit: Yes Status: Acute Patient found to have significant elevation in his troponin with troponin less than upper limit of normal at [facility] and upon arrival to [place] was found to have troponin of 30.22 and repeat 30.47 * Echocardiogram limited was obtained which shows EF of 25% which is a significant drop from previous in 05/30/18 which had a EF of 60-65% * The patient does have a long history of cardiac disease and has undergone CABG prior * Patient underwent catheterization overnight with Dr. Velasquez and a bare metal stent was placed in the saphenous venous graft OM1 SNOMED Code(s): 67572177 (6) Congestive heart failure Current Visit: No Status: Acute - Patient has an acute decompensation of heart failure likely due to NSTEMI -Recent echocardiogram showed an EF of 25% which was a significant drop from his EF in 05/2018 when it was 60-65% -Patient was initially started on 20 IV Lasix but since patient is preload depen dent owing to his reduced EF - Currently holding off on his diuretics because of worsening GILES on CKD - Further management as per the ICU team Qualifiers: Heart failure type: unspecified Heart failure chronicity: chronic Qualif ied Code(s): I50.9 - Heart failure, unspecified SNOMED Code(s): 96923449 (7) CKD (chronic kidney disease) stage 3, GFR 30-59 ml/min Current Visit: Yes Status: Acute -She has a history of CK D of a stage III -Patient has had a bump in his creatinine from 1.56 on admission to 2.42 . -Avoid nephrotoxic agent and renally dose steroids. No indication for IV hydration because of pulmonary edema but will resume gnetly hydration once patient is hemodynamically stable SNOMED Code(s): 882784166 (8) Allergy to multiple antibiotics Current Visit: Yes Status: Acute Patient allergic to multiple antibiotics like Biaxin, Keflex, Levaquin, Zithromax and clindamycin SNOMED Code(s): 973475895992023 (9) DM type 2 (diabetes mellitus, type 2) Current Visit: Yes Status: Chronic Patient has a history of diabetes. Currently on low-dose sliding scale insulin Qualifiers: Diabetes mellitus halfway insulin use: without roasterman use Diabetes mellitus complication status: without complication Qualified Code(s): E11.9 - Type 2 diabetes mellitus without complications SNOMED Code(s): 58915054 Consult Discharge Plan - Plan Referrals: NONE,PCP [Primary Care Provider] - - Attending Attestation I examined this patient and my medical decision-making was reviewed with the Resident Physician. I agree with the documented findings, disposition and treatment plan as described except to the extent set forth below. Assessment and plan: 1. shock - cardiogenic? improved. off dopamine 2. Pneumonia - likely aspiration; improved 3. C diff colitis 4. lower extremities venous stasis 5. third spacing 6. Metabolic encephalopathy Recommendations: continue current antibiotics
[2018-10-14] MEDS ORDERED: 0.9 % Sodium Chloride 250 ML ONE (12:32)
--- NOTE | 2018-10-14 16:45 | Electrocardiograph Report ---
[address] [place] [address] Test Date: 2018-10-14 Pat Name: Chris Sanford Department: 109 Room: [facility] Gender: M Communications Instructor: : [id number] Requested By: Fany Dominguez Order Number: [id number] Reading MD: Shayla Russo Measurements Intervals [place] Rate: 58 P: MA: 0 QRS: -19 QRSD: 134 T: 164 QT: 466 QTc: 462 Interpretive Statements ATRIAL FIBRILLATION WITH SLOW VENTRICULAR RESPONSE INTRAVENTRICULAR CONDUCTION DELAY POSSIBLE ANTERIOR MYOCARDIAL INFARCTION, PROBABLY OLD Electronically Signed On 10-14-2018 16:43:57 EDT by Shayla Russo
[2018-10-14 18:15] LABS: Basophils % 0.4 %; Immature Granulocytes % 1.2 % (0-4); Red Blood Count 3.14 M/mcL (4.19-5.50); Red Cell Distribution Width 15.9 % (11.5-14.5)
[2018-10-14 18:17] LABS: Eosinophils # 0.2 K/mcL (0.0-0.6); Eosinophils % 3.8 %; Hematocrit 28.4 % (37.5-50.1); Hemoglobin 9.1 g/dL (12.9-16.9); Immature Platelets 2.6 % (1.1-6.1); Lymphocytes # 0.7 K/mcL (0.6-4.6); Lymphocytes % 13.3 %; Mean Corpuscular Volume 90.4 fL (83.0-100.0); Mean Platelet Volume 10.7 fL (9.4-12.4); Monocytes # 0.5 K/mcL (0.0-1.3); Monocytes % 10.1 %; Neutrophils # 3.6 K/mcL (1.6-8.9); Segmented Neutrophils % 71.2 %; White Blood Count 5.1 K/mcL (4.3-11.1)
[2018-10-14 18:39] LABS: Platelet Count 72 K/mcL (140-400)
[2018-10-14 19:03] LABS: Platelet Estimate Slight Decrease (Normal)
[2018-10-15] MEDS: Ipratropium/Albuterol Neb 3 ML IH SCH ×6 (03:34→23:31)
[2018-10-15 03:48] LABS: Basophils % 0.2 %; Red Cell Distribution Width 16.1 % (11.5-14.5)
[2018-10-15 03:49] LABS: Eosinophils # 0.2 K/mcL (0.0-0.6); Eosinophils % 4.4 %; Hematocrit 27.2 % (37.5-50.1); Hemoglobin 8.8 g/dL (12.9-16.9); Immature Granulocytes % 1.4 % (0-4); Immature Platelets 2.5 % (1.1-6.1); Lymphocytes # 0.8 K/mcL (0.6-4.6); Lymphocytes % 17.8 %; Mean Corpuscular HGB Conc 32.4 g/dL (31.6-35.5); Mean Corpuscular Volume 89.8 fL (83.0-100.0); Mean Platelet Volume 10.6 fL (9.4-12.4); Monocytes # 0.5 K/mcL (0.0-1.3); Monocytes % 11.7 %; Neutrophils # 2.8 K/mcL (1.6-8.9); Platelet Count 72 K/mcL (140-400); Red Blood Count 3.03 M/mcL (4.19-5.50); Segmented Neutrophils % 64.5 %; White Blood Count 4.3 K/mcL (4.3-11.1)
[2018-10-15 03:53] LABS: VBG Ionized Calcium 1.09 mmol/L (1.15-1.35)
[2018-10-15 04:08] LABS: Calcium 7.5 mg/dL (8.6-10.3); Phosphorous 3.1 mg/dL (2.7-4.5); Potassium 4.1 mEq/L (3.5-5.1)
[2018-10-15 04:28] LABS: ABG Base Excess -3 mEq/L (-2 to 3); ABG HCO3 22 mEq/L (21-27); ABG Oxygen Saturation 98 % (95-98); ABG PCO2 36 mmHg (35-45); ABG PH 7.39 pH Units (7.32-7.45); ABG PO2 100 mmHg (85-104); ABG TCO2 23 mEq/L (20-26); Blood Gas Modality BiLevel; Blood Gas PEEP 6 cm H2O
[2018-10-15] MEDS: *HR* Heparin 5,000 UNIT/ML VIAL SQ SCH ×3 (05:10→20:46)
[2018-10-15] MEDS: Pantoprazole 40 MG VIAL IVP SCH (05:10)
[2018-10-15] MEDS: Calcium Gluconate 1gm/50mL 1 GM/50 ML BAG IVPB PRN (05:10)
[2018-10-15] MEDS: Insulin LISPRO 300 UNITS/3 ML VIAL SQ SCH ×4 (05:20→23:27)
--- NOTE | 2018-10-15 06:51 | Pulmonology Progress Note ---
<Fany Dominguez - Last Filed: 10/15/18 16:37> Date of Encounter: 10/15/18 Time of Encounter: 06:51 Assessment and Plan (1) Acute [place] Current Visit: Yes Status: Acute Patient found to have significant elevation in his troponin with troponin less than upper limit of normal at [facility] and upon arrival to [facility] was found to have troponin of 30.22 and repeat 30.47 Echocardiogram limited was obtained which shows EF of 25% which is a significant drop from previous in 06/19/18 which had a EF of 60-65% The patient does have a long history of cardiac disease and has undergone CABG in 2001 Patient underwent catheterization and a bare metal stent was placed in the saphenous venous graft OM1 on 10/10/18 Continuing on aspirin and Plavix SQ heparin with further monitoring of potential bleeding Dopamine for hypotension was DC'd Transfusion of PRBCs as pt can tolerate for better perfusion Pt now having episodes of bradycardia that have self resolved Reconsulting cardio for their input They state he may be in a mobitz 1 heart block and request an EKG Cardio will continue following tomorrow Qualifiers: Myocardial infarction type: unspecified Involved coronary artery: unspecified coronary artery Qualified Code(s): I21.9 - Acute myocardial infarction, unspecified (2) C. difficile diarrhea Current Visit: Yes Status: Suspected Per family this started as an outpatient. Will continue with oral Flagyl and vancomycin orally Rectal vanc DC'd per ID Patient is C. diff positive on lab draw but culture negative C. diff toxin negative CT abdomen/pelvis shows large bilateral effusions, cirrhotic morphology of the liver with mild splenomegaly along with ascites. There is no evidence of toxic megacolon, but there is wall thickening of the sigmoid colon Pt has not had diarrhea for 5 days ID following - appreciate recommendations (3) Acute exacerbation of CHF (congestive heart failure) Current Visit: Yes Status: Acute Patient had acute decompensation of his heart failure likely secondary to subacute versus acute myocardial infarction EF on limited echo was 25%, of a significant decrease from May 2018 when it was 60-65% Will continue with diuresis as kidneys can tolerate On BiPAP CXR 10/14 shows slightly improving pulmonary edema Will place pt on nitro drip and start scheduled hydralazine Continue other treatment as above Qualifiers: Heart failure type: systolic Qualified Code(s): I50.23 - Acute on chronic systolic (congestive) heart failure (4) Acute on chronic kidney failure Current Visit: Yes Status: Acute CKD stage 3 with baseline Cre appx 1.5 Kidney function continues to decline Cre today 2.78 Improved urinary output 4 days ago, but urine output yesterday was decreased Lasix given two days ago without significant effect Consultation to nephrology was placed yesterday - appreciate recommendations Continue to avoid nephrotoxic agents Will transfuse one unit of blood at a time to increase hgb towards 10 without increasing volume overloaded status Qualifiers: Acute renal failure type: unspecified Chronic kidney disease stage: stage 3 (moderate) Qualified Code(s): N17.9 - Acute kidney failure, unspecified; N18.3 - Chronic kidney disease, stage 3 (moderate) (5) Acute respiratory failure Current Visit: Yes Status: Acute Pt transferred from [facility] due to respiratory failure, arrived on BiPAP Was initially tolerating BiPAP but was eventually intubated due to fatigure and the need for the patient to lie down for cardiac catheterization Pt intubated at 0030 on 10/10/18 Pt was extubated today at 0850 and has been tolerating extubation well He remains fluid overloaded and diuresis has slowed secondary to renal failure Pt is at moderate risk re-intubation during this stay Tolerated BiPAP overnight, will continue to BiPAP prn for respiratory distress Qualifiers: Respiratory failure complication: unspecified whether with hypoxia or hypercapnia Qualified Code(s): J96.00 - Acute respiratory failure, unspecified whether with hypoxia or hypercapnia (6) Chronic venous hypertension w/ulcer and inflammation involv both sides Current Visit: Yes Status: Chronic ID, podiatry and wound care following, appreciate recommendations RLE with dressing C/D/I Left BKA (7) Acute on chronic blood loss anemia Current Visit: Yes Status: Acute Chronic anemia at baseline of 8-9 Pt received 2 units PRBCs on initial visit Hemoglobin stable after Cath, continue to monitor Transfused 1 unit yesterday to help with GILES on CKD Hgb today 8.8 post transfusion (8) Pneumonia Current Visit: Yes Status: Acute Sputum cultures with NGTD Procal significantly elevated at 53.1 Continue Cefepime, flagyl and Vancomycin ID following - appreciate recommendations Consolidation is likely pleural effusion but cannot rule out PNA at this time Qualifiers: Pneumonia type: due to unspecified organism Laterality: unspecified laterality Lung location: unspecified part of lung Qualified Code(s): J18.9 - Pneumonia, unspecified organism (9) Thrombocytopenia Current Visit: Yes Status: Acute Pt hs had slowly decreasing platelet levels Today plts 72 Continue to monitor If drop below 50 we will DC Heparin (10) COPD (chronic obstructive pulmonary disease) Current Visit: Yes Status: Acute Continue Duonebs q4H, Symbicort and Singulair Qualifiers: COPD type: unspecified COPD Qualified Code(s): J44.9 - Chronic obstructive pulmonary disease, unspecified (11) Right foot ulcer Current Visit: Yes Status: Chronic Podiatry and wound care following - appreciate recommendations Pt grew GNR from swab on 10/08/18 - Hx of Staph aureus and pseudomonas On Vanc and Cefepime Qualifiers: Non-pressure ulcer stage: limited to breakdown of skin Qualified Code(s): L97.511 - Non-pressure chronic ulcer of other part of right foot limited to breakdown of skin (12) Hypertension Current Visit: Yes Status: Chronic Home meds held secondary to hypotension Qualifiers: Hypertension type: essential hypertension Qualified Code(s): I10 - Essential (primary) hypertension (13) Diabetes Current Visit: Yes Status: Chronic Continue home meds Continue Accu-Cheks q6H Low dose SSI Qualifiers: Diabetes mellitus type: type 2 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: with regional intermodal truck driver use Diabetes mellitus complication status: with skin complications Diabetes mellitus complication detail: with foot ulcer Qualified Code(s): E11.621 - Type 2 diabetes mellitus with foot ulcer; L97.509 - Non-pressure chronic ulcer of other part of unspecified foot with unspecified severity; Z79.4 - manager terminal (current) use of insulin (14) DVT prophylaxis Current Visit: Yes Status: Acute Will start SQ Heparin and continue to monitor Hgb Subjective Principal diagnosis: CHF, AMI, C-Diff, GILES Interval history: Pt was BiPAPed overnight and continues to do well post extubation. Kidney function remained stable but pt has remained oliguric. Will administer 20mg lasix IV this am to attempt to increase uop. Hgb increased to 8.8 post transfusion. Pt has had several episodes of self resolved bradycardia over the p ast 48 hours. Continuing abx as recommended by ID. Will add another 40mg lasix for tonight per nephro. Pt passed swallow eval for pills but could not eat due to desaturation while off BiPAP - will continue meds via IV until tomorrow to see if he can tolerate being off of the BiPAP. Objective PUL Vital signs: Last Vital Signs Temp 97.3 F L 10/15/18 03:35 Pulse 77 10/15/18 06:00 Resp 20 10/15/18 06:00 BP 124/51 10/15/18 06:00 Pulse Ox 97 10/15/18 06:00 General appearance: no acute distress Eyes: nonicteric Effort: normal Auscultation: bilateral: rales Cardiovascular: regular rate and rhythm Gastrointestinal: soft, non-tender Integumentary: normal Extremities: pink and warm, edema (1+ edema on RLE. Left BKA) normal mental status, non-focal exam, pupils equal and round mood appropriate, affect normal Results - Laboratory Findings CBC and BMP: 10/15/18 03:37 10/15/18 03:37 ABG ABG pH 7.39 pH Units (7.32-7.45) 10/15/18 04:24 ABG pCO2 36 mmHg (35-45) 10/15/18 04:24 ABG pO2 100 mmHg (85-104) 10/15/18 04:24 ABG O2 Saturation 98 % (95-98) 10/15/18 04:24 PT/INR, D-dimer PT 15.9 Seconds (9.4-12.1) H 10/13/18 03:40 Abnormal lab findings: Abnormal lab results WBC 3.8 K/mcL (4.3-11.1) L 10/14/18 03:56 RBC 3.03 M/mcL (4.19-5.50) L 10/15/18 03:37 Hgb 8.8 g/dL (12.9-16.9) L 10/15/18 03:37 Hct 27.2 % (37.5-50.1) L 10/15/18 03:37 MCHC 31.4 g/dL (31.6-35.5) L 10/10/18 17:15 RDW 16.1 % (11.5-14.5) H 10/15/18 03:37 Plt Count 72 K/mcL (140-400) L 10/15/18 03:37 Band Neutrophils % 70.0 % (0-4) H 10/09/18 22:18 Neutrophils # 9.6 K/mcL (1.6-8.9) H 10/10/18 04:00 Lymphocytes # 0.5 K/mcL (0.6-4.6) L 10/11/18 04:05 Platelet Estimate Slight Decrease (Normal) L 10/14/18 18:00 ESR 79 mm/hr (0-10) H 10/10/18 18:56 PT 15.9 Seconds (9.4-12.1) H 10/13/18 03:40 APTT 43.1 Seconds (26.0-36.0) H 10/13/18 03:40 Fibrinogen 465 mg/dL (169-393) H 10/10/18 17:15 Heparin Anti-Xa, Unfract 0.26 IU/mL (0.30-0.70) L 10/09/18 22:18 ABG pCO2 34 mmHg (35-45) L 10/13/18 04:36 ABG pO2 61 mmHg (85-104) L 10/14/18 05:01 ABG O2 Saturation 90 % (95-98) L 10/14/18 05:01 ABG Base Excess -3 mEq/L (-2 to 3) L 10/15/18 04:24 VBG pO2 69 mmHg (25-50) H 10/09/18 22:28 Sodium 135 mEq/L (136-145) L 10/15/18 03:37 Carbon Dioxide 19 mEq/L (23-29) L 10/15/18 03:37 BUN 34 mg/dL (8-23) H 10/15/18 03:37 Creatinine 2.78 mg/dL (0.70-1.30) H 10/15/18 03:37 Est GFR ( Amer) 28 (> 60) L 10/15/18 03:37 Est GFR (Non-Af Amer) 23 (> 60) L 10/15/18 03:37 Glucose 125 mg/dL (70-105) H 10/14/18 03:56 POC Glucose 149 mg/dL (70-99) H 10/14/18 23:36 Calcium 7.5 mg/dL (8.6-10.3) L 10/15/18 03:37 Venous Ioniz Calcium 1.09 mmol/L (1.15-1.35) L 10/15/18 03:48 AST 66 Units/L (13-39) H 10/09/18 22:18 Lactate Dehydrogenase 286 Units/L (140-271) H 10/10/18 19:23 Troponin I 31.20 ng/mL (< 0.04) H* 10/10/18 12:00 C-Reactive Protein 209 mg/L (Less than 10) H 10/10/18 19:23 B-Natriuretic Peptide 868 pg/mL (Less than 100) H 10/09/18 22:18 Serum Total Protein 5.9 g/dL (6.4-8.9) L 10/13/18 03:40 Albumin 2.0 g/dL (3.5-5.7) L 10/14/18 03:56 Globulin 3.6 g/dL (2.4-3.5) H 10/13/18 03:40 Albumin/Globulin Ratio 0.6 (1.1-2.2) L 10/13/18 03:40 Procalcitonin 53.10 ng/mL (0.00-0.15) H 10/10/18 05:00 Urine Clarity Cloudy (Clear) A 10/10/18 00:42 Urine Protein >=300 mg/dL (Neg-Trace) H 10/10/18 00:42 Urine Ketones Trace mg/dL (Negative) H 10/10/18 00:42 Urine Blood Trace (Negative) H 10/10/18 00:42 Urine Bilirubin Moderate (Negative) H 10/10/18 00:42 Urine Microscopic RBC 3-5 per hpf (0-3) H 10/10/18 00:42 Urine Microscopic WBC 5-15 per hpf (0-3) H 10/10/18 00:42 Ur Squamous Epith Cells Many per lpf (None-Few) H 10/10/18 00:42 Hyaline Casts Many per lpf (None-Few) H 10/10/18 00:42 Protein/Creatinin Ratio 1.00 mg/mg (0.00-0.20) H 10/13/18 15:30 Urine Total Protein 103 mg/dL (1-14) H 10/13/18 15:30 Nasal Screen MRSA (PCR) Positive (Negative) A 10/09/18 22:59 Stl C.diff Tox A&B Gene DETECTED (Not detect) A 10/09/18 13:59 Vancomycin Trough 23 mcg/mL (5-10) H 10/12/18 03:55 Crossmatch See Detail 10/14/18 11:05 - Microbiology Findings Microbiology Findings: Microbiology, Last 48 Hours 10/09/18 22:18 Blood Culture - Final Peripheral Venipuncture No growth. Final report. 10/09/18 22:18 Blood Culture - Final Peripheral Venipuncture No growth. Final report. - Clinical Findings Intake & Output: Intake & Output 10/14/18 10/14/18 10/15/18 15:59 23:59 07:59 Intake Total 145 / 898 470 / 898 100 / 100 Output Total 95 / 205 50 / 205 10 / 10 Balance 50 / 693 420 / 693 90 / 90 Weight 120.1 kg Consult Discharge Plan - Plan Referrals: NONE,PCP [Primary Care Provider] - <Chanelle Blanca - Last Filed: 10/18/18 00:31> Date of Encounter: 10/15/18 Objective PUL Vital signs: Last Vital Signs Temp 97.8 F 10/15/18 12:00 Pulse 66 10/15/18 15:00 Resp 24 10/15/18 15:00 BP 129/60 10/15/18 15:00 Pulse Ox 97 10/15/18 15:00 Results - Laboratory Findings CBC and BMP: 10/17/18 03:33 10/17/18 03:33 ABG ABG pH 7.39 pH Units (7.32-7.45) 10/15/18 04:24 ABG pCO2 36 mmHg (35-45) 10/15/18 04:24 ABG pO2 100 mmHg (85-104) 10/15/18 04:24 ABG O2 Saturation 98 % (95-98) 10/15/18 04:24 PT/INR, D-dimer PT 15.9 Seconds (9.4-12.1) H 10/13/18 03:40 Abnormal lab findings: Abnormal lab results WBC 3.8 K/mcL (4.3-11.1) L 10/14/18 03:56 RBC 3.03 M/mcL (4.19-5.50) L 10/15/18 03:37 Hgb 8.8 g/dL (12.9-16.9) L 10/15/18 03:37 Hct 27.2 % (37.5-50.1) L 10/15/18 03:37 MCHC 31.4 g/dL (31.6-35.5) L 10/10/18 17:15 RDW 16.1 % (11.5-14.5) H 10/15/18 03:37 Plt Count 72 K/mcL (140-400) L 10/15/18 03:37 Band Neutrophils % 70.0 % (0-4) H 10/09/18 22:18 Neutrophils # 9.6 K/mcL (1.6-8.9) H 10/10/18 04:00 Lymphocytes # 0.5 K/mcL (0.6-4.6) L 10/11/18 04:05 Platelet Estimate Slight Decrease (Normal) L 10/14/18 18:00 ESR 79 mm/hr (0-10) H 10/10/18 18:56 PT 15.9 Seconds (9.4-12.1) H 10/13/18 03:40 APTT 43.1 Seconds (26.0-36.0) H 10/13/18 03:40 Fibrinogen 465 mg/dL (169-393) H 10/10/18 17:15 Heparin Anti-Xa, Unfract 0.26 IU/mL (0.30-0.70) L 10/09/18 22:18 ABG pCO2 34 mmHg (35-45) L 10/13/18 04:36 ABG pO2 61 mmHg (85-104) L 10/14/18 05:01 ABG O2 Saturation 90 % (95-98) L 10/14/18 05:01 ABG Base Excess -3 mEq/L (-2 to 3) L 10/15/18 04:24 VBG pO2 69 mmHg (25-50) H 10/09/18 22:28 Sodium 135 mEq/L (136-145) L 10/15/18 03:37 Carbon Dioxide 19 mEq/L (23-29) L 10/15/18 03:37 BUN 34 mg/dL (8-23) H 10/15/18 03:37 Creatinine 2.78 mg/dL (0.70-1.30) H 10/15/18 03:37 Est GFR ( Amer) 28 (> 60) L 10/15/18 03:37 Est GFR (Non-Af Amer) 23 (> 60) L 10/15/18 03:37 Glucose 125 mg/dL (70-105) H 10/14/18 03:56 POC Glucose 149 mg/dL (70-99) H 10/14/18 23:36 Calcium 7.5 mg/dL (8.6-10.3) L 10/15/18 03:37 Venous Ioniz Calcium 1.09 mmol/L (1.15-1.35) L 10/15/18 03:48 AST 66 Units/L (13-39) H 10/09/18 22:18 Lactate Dehydrogenase 286 Units/L (140-271) H 10/10/18 19:23 Troponin I 31.20 ng/mL (< 0.04) H* 10/10/18 12:00 C-Reactive Protein 209 mg/L (Less than 10) H 10/10/18 19:23 B-Natriuretic Peptide 868 pg/mL (Less than 100) H 10/09/18 22:18 Serum Total Protein 5.9 g/dL (6.4-8.9) L 10/13/18 03:40 Albumin 2.0 g/dL (3.5-5.7) L 10/14/18 03:56 Globulin 3.6 g/dL (2.4-3.5) H 10/13/18 03:40 Albumin/Globulin Ratio 0.6 (1.1-2.2) L 10/13/18 03:40 Procalcitonin 53.10 ng/mL (0.00-0.15) H 10/10/18 05:00 Urine Clarity Cloudy (Clear) A 10/10/18 00:42 Urine Protein >=300 mg/dL (Neg-Trace) H 10/10/18 00:42 Urine Ketones Trace mg/dL (Negative) H 10/10/18 00:42 Urine Blood Trace (Negative) H 10/10/18 00:42 Urine Bilirubin Moderate (Negative) H 10/10/18 00:42 Urine Microscopic RBC 3-5 per hpf (0-3) H 10/10/18 00:42 Urine Microscopic WBC 5-15 per hpf (0-3) H 10/10/18 00:42 Ur Squamous Epith Cells Many per lpf (None-Few) H 10/10/18 00:42 Hyaline Casts Many per lpf (None-Few) H 10/10/18 00:42 Protein/Creatinin Ratio 1.00 mg/mg (0.00-0.20) H 10/13/18 15:30 Urine Total Protein 103 mg/dL (1-14) H 10/13/18 15:30 Nasal Screen MRSA (PCR) Positive (Negative) A 10/09/18 22:59 Stl C.diff Tox A&B Gene DETECTED (Not detect) A 10/09/18 13:59 Vancomycin Trough 23 mcg/mL (5-10) H 10/12/18 03:55 Crossmatch See Detail 10/14/18 11:05 - Microbiology Findings Microbiology Findings: Microbiology, Last 48 Hours 10/09/18 22:18 Blood Culture - Final Peripheral Venipuncture No growth. Final report. 10/09/18 22:18 Blood Culture - Final Peripheral Venipuncture No growth. Final report. - Clinical Findings Intake & Output: Intake & Output 10/14/18 10/15/18 10/15/18 23:59 07:59 15:59 Intake Total 470 / 898 150 / 270 120 / 270 Output Total 50 / 205 110 / 260 150 / 260 Balance 420 / 693 40 / 10 -30 / 10 Weight 120.1 kg - Attending Attestation I examined this patient and my medical decision-making was reviewed with the Resident Physician. I agree with the documented findings, disposition and treatment plan as described except to the extent set forth below. Patient seen and examined. Labs, radiology, chart personally reviewed. 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 Patient requires sedation for agitation. Unfortunately it is difficult to know if he is in pain. Pulmonary: Acceptable oxygenation and ventilation as long as he is on NIV, however with his CHF and generalized weakness, he is really high risk that his condition could easily deteriorate. Will attempt to wean off NIV and transition to mask or NC if possible. Patient is not able to participate with IS and he is always at risk of atelectasis and even pneumonia. Cardiovascular: relatively stable , however he has what is look like slow A.fib and cardiology is following up. Unfortunately medical management is limited because of his renal function and his bradycardia. Discussed with pharmacist to consider Hydralizine and Isosorbide and obviously will continue diuresis as tolerated. GI: Nutrition per dietary and GI prophylaxis per routine Heme: DVT prophylaxis per routine ID: Continue antibiotics and plan to de-escalation Renal; urine out put and renal function reviewed Endorcine: blood glucose is monitored Lines: all lines checked and no evidence of infections Skin: skin care to prevent pressure ulcers per nursing routine care Dispo:ICU Code: Full. Prognosis.Poor and palliative care is still talking to his family. I spent 35 min of Critical Care time with this patient. It involved decision making of high complexity to assess, manipulate, and support vital organ system failure and/or to prevent further life threatening deterioration of the patient's condition. The time involved in the performance of separately reportable procedures was not counted toward critical care time.
[2018-10-15] MEDS: Budesonide/Formoterol 160/4.5 1 PUFF INH IH SCH ×2 (07:34→20:10)
[2018-10-15] MEDS ORDERED: Furosemide 20 MG/2 ML VIAL IVP ONE (07:36)
[2018-10-15] MEDS: Aspirin 81 MG TAB.CHEW PO SCH (07:40)
[2018-10-15] MEDS: Vancomycin Oral Soln 125 MG/2.5 ML UDC PO SCH ×4 (07:40→20:46)
[2018-10-15] MEDS: MetroNIDAZOLE 500 MG/100 ML 500 MG/100 ML BAG IVPB SCH ×3 (08:32→23:26)
[2018-10-15] MEDS: Cefepime HCl 1,000 MG in Water for inj. (sterile) 20 ML IVP SCH ×2 (08:32→20:46)
--- NOTE | 2018-10-15 09:55 | Infectious Disease Progress No ---
ID Progress Note Date of Encounter: 10/15/18 Time of Encounter: 10:45 - Subjective Subjective: Patient seen and examined at the bedside. He is at day 2 s/p extubation satting at 98% 4 L of nasal cannula. He is still altered and is not A&O*3, has an oliguric GILES with Cr bumping up from 2.76 to 2.78 today. Patient has failed his bedside swallow evaluation. He continues to be afebrile he is on no day 6 of IV 500MG Flagyl, day 6 of IV 2 g cefepime, will be started on day 1 of PO 125 mg Vancomycin via NG tube. - Objective CBC & Chem 7: 10/16/18 03:08 10/16/18 03:08 - Exam Vitals: Temp Pulse Resp BP Pulse Ox 97.2 F L 71 25 122/58 98 10/15/18 07:44 10/15/18 09:00 10/15/18 09:00 10/15/18 09:00 10/15/18 09:00 Exam: Gen.: Vitals noted. No acute distress. On 4L NC HEENT: oropharynx clear, Normocephalic, atraumatic, MMM Neck: supple, no JVD, no lymphadenopathy, no carotid bruit. Cardiac: RRR, no murmur, +S1/S2, No BLE edema, PMI non-displaced Pulmonary: bilateral wheezing, no rales or rhonchi, equal chest expansion Abdomen: soft, nontender, BS noted, no guarding, undistended. No organomegaly, no pulsatile masses, Skin: R leg cellulites drapped in bandage, warm and dry Extremities: Left leg amputated, R leg cellulites drapped in bandage, warm and dry MSK: ROM not assessed. no joint swelling noted, gait not assessed while in bed. Non tender calf or clubbing, no cyanosis/clubbing/ or edema Neuro: A&O, moves all extremities, no focal deficits, sensation intact - Assessment and Plan (1) Altered mental status Current Visit: Yes Status: Acute - likely multifactorial due to oliguric GILES , along with getting off of the ventilator, and discontinuation of versed. Patient also had hydrostatic pulmonary edema with a reduced EF of 25 % which is unchaged from his previous Echo. -patient opens his eyes to verbal commands but is not able to nod his head in a yes/no answer , or produce any speech. -Continuos neuro checks q4h, continue Abx for PNA, diurese when able for pleural effusion. Qualifiers: Altered mental status type: unspecified Qualified Code(s): R41.82 - Altered mental status, unspecified SNOMED Code(s): 796008857 (2) Shock Current Visit: Yes Status: Acute -Resolved , patient currently extubated and off pressors -Was Likely cardiogenic in nature -Patient was transferred from [facility] to ICU because of diarrheal episodes for the past 2 weeks accompanied by abdominal pain -Pertinent Vitals /Labs on admission: Temp: 99.9, Pulse: 97, RR: 27, WBC: 15.7, Band neutrophils 70%, Lactate : 2.1, BNP: 2898. -Pertinent Vitals /Labs now: Temp: 97.8, Pulse: 69, RR: 14, WBC: 4.1 -He also has a right leg cellulitis- no evidence of any bleeding or serosanguineous discharge -10/09/18 Chest x-ray showed bilateral mild and lower lung airspace disease and bilateral pleural effusion with concerns for pulmonary edema -10/10/18 Abdomen /Pelvic CT revealed wall thickening of the sigmoid colon likely related to lack of distention. Correlation for colitis is recommended -Currently on day 4 of IV 2g cefepime, day 3 of PO 500mg vancomycin, day 5 of IV 500 mg Flagyl PLAN -Continue PO Vancomycin but dose has reduced from 500 to 125 PO QID . If failed a swallow eval, continue vancomycin with NG tube. -Continue cefepime 2 g IV every 12 hours for a total of 10-14 days -Continue IV Flagyl 500mg q8h SNOMED Code(s): 25501117 (3) C. difficile diarrhea Current Visit: Yes Status: Acute -Patient has a history of associated diarrhea . -He was treated in the hospital in the month of June for C. difficile and was on discharged vancomycin taper. -Has been afebrile since admission, with white blood count of 15.7 at [facility] currently WBC is 4.1 -Stool C. difficile toxin A&B was detected . -And has a rectal tube in place no output. -CT abdominal pelvis did not show any evidence for toxic megacolon but there was wall thickening of the sigmoid colon PLAN: -Continue vancomycin 125mg PO QID via NG tube SNOMED Code(s): 4229930232685 (4) Cellulitis of right leg Current Visit: Yes Status: Acute -Patient has a history of cellulitis of the right leg -10/08/18 recent wound culture grew gram-negative rods, sensitivity pending - 06/21/18 would culture grew : S aureus, Pseudomonas aeruginosa - P aeruginosa: S: Cefepime, ceftazidime, ciprofloxacin, gentamicin, independent, levofloxacin, Zosyn, tobramycin - S auerus: S - daptomycin, doxycycline, gentamicin, oxacillin, rifampin, tetracycline, Zosyn, vancomycin - 06/18/18 would culture grew : Group B strep, Pseudomonas aeruginosa which were pansensitive -Patient is not afebrile at the moment , His white blood count trending down from 15.7 yesterday to 9.3 today. -Currently on day 6 of Cefepime 2g IV q 12 h for total of 10-14 days - SNOMED Code(s): 136054473 (5) Pneumonia Current Visit: Yes Status: Acute Etiology unknown Procal significantly elevated at 53.1 on admission. on physical exam he has bilateral wheezes. 10/11/18: CXR Consolidation is likely pleural efusion but cannot rule out pneumonia at this time 10/14/18: CXR Improving bibasilar atelectesis or PNA Currently on day 6 of IV 500mg Flagyl, day 6 of 2gm cefepime. will need incentive spirometer once patient is alert and oriented Qualifiers: Pneumonia type: due to unspecified organism Laterality: unspecified laterality Lung location: unspecified part of lung Qualified Code(s): J18.9 - Pneumonia, unspecified organism SNOMED Code(s): 341701194 (6) NSTEMI (non-ST elevated myocardial infarction) Current Visit: Yes Status: Acute Patient found to have significant elevation in his troponin with troponin less than upper limit of normal at [facility] and upon arrival to [place] was found to have troponin of 30.22 and repeat 30.47 * Echocardiogram limited was obtained which shows EF of 25% which is a significant drop from previous in 05/30/18 which had a EF of 60-65% * The patient does have a long history of cardiac disease and has undergone CABG prior * Patient underwent catheterization overnight with Dr. Velasquez and a bare metal stent was placed in the saphenous venous graft OM1 SNOMED Code(s): 16597969 (7) Congestive heart failure Current Visit: No Status: Acute - Patient has an acute decompensation of heart failure likely due to NSTEMI -Recent echocardiogram showed an EF of 25% which was a significant drop from his EF in 05/2018 when it was 60-65% -Patient was initially started on 20 IV Lasix but since patient is preload dependent owing to his reduced EF - Currently holding off on his diuretics because of worsening GILES on CKD - Further management as per the ICU team Qualifiers: Heart failure type: unspecified Heart failure chronicity: chronic Qualified Code(s): I50.9 - Heart failure, unspecified SNOMED Code(s): 56002218 (8) CKD (chronic kidney disease) stage 3, GFR 30-59 ml/min Current Visit: Yes Status: Acute -She has a history of CK D of a stage III -Patient has had a bump in his creatinine from 1.56 on admission to 2.42 . -Avoid nephrotoxic agent and renally dose steroids. No indication for IV hydration because of pulmonary edema but will resume gnetly hydration once patient is hemodynamically stable SNOMED Code(s): 388807168 (9) Allergy to multiple antibiotics Current Visit: Yes Status: Acute Patient allergic to multiple antibiotics like Biaxin, Keflex, Levaquin, Zithromax and clindamycin SNOMED Code(s): 335652869656389 (10) DM type 2 (diabetes mellitus, type 2) Current Visit: Yes Status: Chronic Patient has a history of diabetes. Currently on low-dose sliding scale insulin Qualifiers: Diabetes mellitus manager intermediate insulin use: without manager intermediate use Diabetes mellitus complication status: without complication Qualified Code(s): E11.9 - Type 2 diabetes mellitus without complications SNOMED Code(s): 97505750 Consult Discharge Plan - Plan Referrals: NONE,PCP [Primary Care Provider] - - Attending Attestation I have personally performed a face to face evaluation on this patient. I have reviewed and agree with the care plan. History and Exam by me shows: Assessment and plan: 1. shock - cardiogenic? improved. off dopamine 2. Pneumonia - likely aspiration; improved 3. C diff colitis 4. lower extremities venous stasis 5. third spacing 6. Metabolic encephalopathy Recommendations: continue current antibiotics clinically continues to improve duration of treatmnet depends on clinical picture d/w nursing staff
--- NOTE | 2018-10-15 10:59 | Nephrology Progress Note ---
Date of Encounter: 10/15/18 Time of Encounter: 10:57 - Assessment and Plan (1) Acute on chronic kidney failure Current Visit: Yes Status: Acute The patient has acute kidney injury superimposed on chronic kidney disease. He has a variable baseline renal function. Reviewing his records reveals that he has had dialysis in the past for an acute kidney injury episode. His current acute kidney injury is multifactorial from sepsis along with contrast exposure. He was oliguric, however, it appears that his renal function may be improving slightly. At this time he does not need dialysis. We will monitor closely. He would probably benefit from a blood transfusion to keep his hemoglobin above 10, but will defer to the primary team.. Keep his mean blood pressure above 65. Qualifiers: Acute renal failure type: unspecified Chronic kidney disease stage: stage 3 (moderate) Qualified Code(s): N17.9 - Acute kidney failure, unspecified; N18.3 - Chronic kidney disease, stage 3 (moderate) (2) Acute SD Current Visit: Yes Status: Acute Qualifiers: Myocardial infarction type: unspecified Involved coronary artery: unspecified coronary artery Qualified Code(s): I21.9 - Acute myocardial infarction, unspecified (3) Acute exacerbation of CHF (congestive heart failure) Current Visit: Yes Status: Acute Qualifiers: Heart failure type: systolic Qualified Code(s): I50.23 - Acute on chronic systolic (congestive) heart failure (4) Acute on chronic blood loss anemia Current Visit: Yes Status: Acute (5) DM type 2 (diabetes mellitus, type 2) Current Visit: Yes Status: Chronic Qualifiers: Diabetes mellitus retirement insulin use: without buttermaker continuous churn use Diabetes mellitus complication status: without complication Qualified Code(s): E11.9 - Type 2 diabetes mellitus without complications (6) Septic shock Current Visit: Yes Status: Acute (7) Anemia Current Visit: Yes Status: Chronic Qualifiers: Anemia type: due to chronic kidney disease Chronic kidney disease stage: s tage 3 (moderate) Qualified Code(s): N18.3 - Chronic kidney disease, stage 3 (moderate); D63.1 - Anemia in chronic kidney disease (8) Hypertension Current Visit: Yes Status: Chronic Qualifiers: Hypertension type: essential hypertension Qualified Code(s): I10 - Essential (primary) hypertension Subjective Principal diagnosis: CHF, AMI, C-Diff, GILES Interval history: Patient was seen. He is extubated, comfortable, and confused. A complete review of systems is unobtainable secondary to his mental status. Objective - Vital Signs Vital signs: Vital Signs Temp Pulse Resp BP Pulse Ox 10/15/18 09:00 71 25 122/58 98 10/15/18 08:00 69 29 127/55 96 10/15/18 07:44 97.2 F L 10/15/18 07:39 19 56 10/15/18 07:00 69 28 137/57 97 10/15/18 06:00 77 20 124/51 97 10/15/18 05:00 72 30 144/58 97 10/15/18 04:00 73 20 135/55 99 10/15/18 03:36 27 143/59 98 10/15/18 03:35 97.3 F L 10/15/18 03:00 67 26 156/64 98 10/15/18 02:00 65 13 113/52 97 10/15/18 01:00 62 14 119/53 97 10/15/18 00:00 62 14 108/52 98 10/14/18 23:56 96.2 F L 10/14/18 23:28 13 110/50 98 10/14/18 23:00 68 15 110/50 98 10/14/18 22:00 73 17 120/57 98 10/14/18 21:44 19 95 10/14/18 21:00 65 30 145/88 90 10/14/18 20:12 15 100 10/14/18 20:00 59 24 136/56 94 10/14/18 19:42 97.2 F L 10/14/18 19:00 53 14 116/64 94 10/14/18 18:00 60 20 125/56 93 10/14/18 17:00 64 20 120/56 94 10/14/18 16:45 96.0 F L 60 20 128/56 93 10/14/18 16:00 67 20 139/69 92 10/14/18 15:00 60 19 123/60 94 10/14/18 14:00 66 19 134/65 93 10/14/18 13:00 63 18 130/58 95 10/14/18 12:53 97.4 F L 64 20 127/60 95 10/14/18 12:38 97.4 F L 68 19 118/55 95 10/14/18 12:00 80 20 138/64 94 10/14/18 11:00 97.4 F L 61 21 138/61 94 Intake and Output 10/14/18 10/15/18 10/15/18 23:59 07:59 15:59 Intake Total 470 / 898 150 / 170 20 / 170 Output Total 50 / 205 110 / 110 Balance 420 / 693 40 / 60 20 / 60 Intake: IV Fluids 120 / 481 150 / 170 20 / 170 Maxipime 1,000 MG In Water for 20 / 20 inj. (sterile) 20 ML @ 300 mls/ hr IVP Q12H SHERIDAN Rx#:[id number] Calcium Gluconate 1gm/50mL 1 gm 50 / 50 In 50 ml @ 50 mls/hr IVPB Q6HR PRN Rx#:[id number] Flagyl Premix 500 MG/100 ML 500 100 / 300 100 / 100 mg In 100 ml @ 100 mls/hr IVPB Q8HR SHERIDAN Rx#:[id number] Oral 0 / 0 Blood Product 350 / 350 Rbcs Leuko Poor As-1 Unit 350 / 350 [id number] Output: Rectal Tube 0 / 0 Catheter 50 / 205 110 / 110 Other: Weight 120.1 kg Blood Glucose* 149 - General Appearance General appearance: Present: well-developed, well-nourished, obese EENT: Present: ATNC Neck: Present: supple Cardiology: Present: regular rate Gastrointestinal: Present: obese Additional Comments: He is alert Psychiatric: Absent: agitated Additional Comments: He is not agitated - Lab 10/15/18 03:37 10/15/18 03:37 Most recent lab results 10/15/18 10/15/18 03:37 04:24 ABG pH 7.39 ABG pCO2 36 ABG pO2 100 ABG HCO3 22 ABG O2 Saturation 98 Calcium 7.5 L Phosphorus 3.1 Magnesium 2.0 Consult Discharge Plan - Plan Referrals: NONE,PCP [Primary Care Provider] -
[2018-10-15] MEDS ORDERED: Furosemide 40 MG/4 ML VIAL IVP ONE (13:51)
[2018-10-15] MEDS ORDERED: Nitroglycerin 25 MG/250 ML INFUS..BTL IVC SCH (15:45)
--- NOTE | 2018-10-15 16:29 | Event Note ---
Date of Encounter: 10/15/18 Time of Encounter: 14:25 - Cardiology Event Note Cardiology asked to re-evaluate patient for bradycardia. S/p NSTEMI and PCI to SVG graft. Pt extubated yesterday and on bipap. Pt lethargic and does not follow command. Telemetry reviewed. Intermittent 2nd degree mobitz type I AV block seen. HR as low as 38 seen during nocturnal hours. HR 60's currently. EKG ordered. Cardiology will follow. Pt currently not on AV priyanka chilango. No urgent need for intervention at this time.
[2018-10-16 03:25] LABS: Basophils % 0.2 %; Eosinophils # 0.1 K/mcL (0.0-0.6); Eosinophils % 2.8 %; Hematocrit 28.2 % (37.5-50.1); Hemoglobin 8.8 g/dL (12.9-16.9); Immature Granulocytes % 2.1 % (0-4); Lymphocytes # 0.7 K/mcL (0.6-4.6); Mean Corpuscular HGB Conc 31.2 g/dL (31.6-35.5); Mean Corpuscular Hemoglobin 29.1 pg (28.0-33.3); Mean Corpuscular Volume 93.4 fL (83.0-100.0); Mean Platelet Volume 10.2 fL (9.4-12.4); Monocytes # 0.5 K/mcL (0.0-1.3); Monocytes % 11.8 %; Neutrophils # 2.9 K/mcL (1.6-8.9); Red Blood Count 3.02 M/mcL (4.19-5.50); Red Cell Distribution Width 16.4 % (11.5-14.5); Segmented Neutrophils % 68.1 %; White Blood Count 4.3 K/mcL (4.3-11.1)
[2018-10-16 03:41] LABS: Platelet Count 70 K/mcL (140-400)
[2018-10-16] MEDS: Ipratropium/Albuterol Neb 3 ML IH SCH ×5 (03:42→20:56)
[2018-10-16 03:46] LABS: Calcium 7.9 mg/dL (8.6-10.3); Magnesium 2.1 mg/dL (1.6-2.6); Phosphorous 3.2 mg/dL (2.7-4.5); Potassium 4.4 mEq/L (3.5-5.1)
[2018-10-16] MEDS ORDERED: *HR* LORazepam 2 MG/ML VIAL IVP ONE (03:51)
[2018-10-16] MEDS: Pantoprazole 40 MG VIAL IVP SCH (05:19)
[2018-10-16] MEDS: *HR* Heparin 5,000 UNIT/ML VIAL SQ SCH ×3 (05:19→21:09)
[2018-10-16] MEDS: Insulin LISPRO 300 UNITS/3 ML VIAL SQ SCH ×3 (05:19→18:17)
--- NOTE | 2018-10-16 06:39 | Pulmonology Progress Note ---
<Fany Dominguez - Last Filed: 10/16/18 17:02> Date of Encounter: 10/16/18 Time of Encounter: 06:38 Assessment and Plan (1) Acute ND Current Visit: Yes Status: Acute Patient found to have significant elevation in his troponin with troponin less than upper limit of normal at [facility] and upon arrival to [facility] was found to have troponin of 30.22 and repeat 30.47 Echocardiogram limited was obtained which shows EF of 25% which is a significant drop from previous in 06/19/18 which had a EF of 60-65% The patient does have a long history of cardiac disease and has undergone CABG in 2001 Patient underwent catheterization and a bare metal stent was placed in the saphenous venous graft OM1 on 10/10/18 Continuing on aspirin and Plavix SQ heparin with further monitoring of potential bleeding Dopamine for hypotension was DC'd Transfusion of PRBCs as pt can tolerate for better perfusion Pt now having episodes of bradycardia that have self resolved Reconsulting cardio for their input They state he may be in a mobitz 1 heart block and request an EKG EKG showed slow afib Cardio will continue following Qualifiers: Myocardial infarction type: unspecified Involved coronary artery: unspec ified coronary artery Qualified Code(s): I21.9 - Acute myocardial infarction, unspecified (2) C. difficile diarrhea Current Visit: Yes Status: Suspected Per family this started as an outpatient Will continue with IV Flagyl and vancomycin orally Rectal vanc DC'd per ID Patient is C. diff positive on lab draw but culture negative C. diff toxin negative CT abdomen/pelvis shows large bilateral effusions, cirrhotic morphology of the liver with mild splenomegaly along with ascites. There is no evidence of toxic megacolon, but there is wall thickening of the sigmoid colon Pt has not had diarrhea for since first night of visit ID following - appreciate recommendations (3) Acute exacerbation of CHF (congestive heart failure) Current Visit: Yes Status: Acute Patient had acute decompensation of his heart failure likely secondary to subacute versus acute myocardial infarction EF on limited echo was 25%, of a significant decrease from May 2018 when it was 60-65% Will continue with diuresis as kidneys can tolerate On BiPAP CXR 10/14 shows slightly improving pulmonary edema Place pt on nitro drip and start scheduled hydralazine for diuresis on 10/15 with improved uop Will switch to isosorbide dinitrite and hydralazine TID as pt is now taking oral meds Continue other treatment as above Qualifiers: Heart failure type: systolic Qualified Code(s): I50.23 - Acute on chronic systolic (congestive) heart failure (4) Acute on chronic kidney failure Current Visit: Yes Status: Acute CKD stage 3 with baseline Cre appx 1.5 Kidney function continues to decline Cre today 2.83 Improved urinary output intially with lasix Lasix given three days ago without significant effect Consultation to nephrology was placed - appreciate recommendations Continue to avoid nephrotoxic agents Will transfuse one unit of blood at a time to increase hgb towards 10 without increasing volume overloaded status Dr. Morrissey suggests bicarb infusion for worsening metabolic acidosis on 10/16 Due to pts worsening renal function he suggests that if there is no improvement by tomorrow to place a temporary hemodialysis line in preparation for the weekend Qualifiers: Acute renal failure type: unspecified Chronic kidney disease stage: stage 3 (moderate) Qualified Code(s): N17.9 - Acute kidney failure, unspecified; N18.3 - Chronic kidney disease, stage 3 (moderate) (5) Acute respiratory failure Current Visit: Yes Status: Acute Pt transferred from [facility] due to respiratory failure, arrived on BiPAP Was initially tolerating BiPAP but was eventually intubated due to fatigure and the need for the patient to lie down for cardiac catheterization Pt intubated at 0030 on 10/10/18 Pt was extubated 10/15 at 0850 and has been tolerating extubation well He remains fluid overloaded and diuresis has slowed secondary to renal failure Pt is at moderate risk re-intubation during this stay Tolerated BiPAP overnight, will continue to BiPAP prn for respiratory distress Qualifiers: Respiratory failure complication: unspecified whether with hypoxia or hypercapnia Qualified Code(s): J96.00 - Acute respiratory failure, unspecified whether with hypoxia or hypercapnia (6) Acute on chronic blood loss anemia Current Visit: Yes Status: Acute Chronic anemia at baseline of 8-9 Pt received 2 units PRBCs on initial visit Hemoglobin stable after Cath, continue to monitor Transfused 2 units to help with GILES on CKD Hgb today 8.8 post transfusion, stable (7) Pneumonia Current Visit: Yes Status: Acute Sputum cultures with NGTD Procal significantly elevated at 53.1 Continue Cefepime and flagyl, IV Vancomycin stopped secondary to renal function but Vanc trough continues to be therapeutic ID following - appreciate recommendations Consolidation is likely pleural effusion but cannot rule out PNA at this time Qualifiers: Pneumonia type: due to unspecified organism Laterality: unspecified laterality Lung location: unspecified part of lung Qualified Code(s): J18.9 - Pneumonia, unspecified organism (8) Thrombocytopenia Current Visit: Yes Status: Acute Pt hs had slowly decreasing platelet levels Today plts 70 Continue to monitor If drop below 50 we will DC Heparin (9) Chronic venous hypertension w/ulcer and inflammation involv both sides Current Visit: Yes Status: Chronic ID, podiatry and wound care following, appreciate recommendations RLE with dressing C/D/I Left BKA (10) COPD (chronic obstructive pulmonary disease) Current Visit: Yes Status: Acute Continue Duonebs q4H, Symbicort and Singulair Qualifiers: COPD type: unspecified COPD Qualified Code(s): J44.9 - Chronic obstructive pulmonary disease, unspecified (11) Right foot ulcer Current Visit: Yes Status: Chronic Podiatry and wound care following - appreciate recommendations Pt grew GNR from swab on 10/08/18 - Hx of Staph aureus and pseudomonas On Vanc and Cefepime Qualifiers: Non-pressure ulcer stage: limited to breakdown of skin Qualified Code(s): L97.511 - Non-pressure chronic ulcer of other part of right foot limited to breakdown of skin (12) Hypertension Current Visit: Yes Status: Chronic Home meds intially held secondary to hypotension Pts BP has stabilized but will continue to hold meds as he is not hypertensive Qualifiers: Hypertension type: essential hypertension Qualified Code(s): I10 - Essential (primary) hypertension (13) Diabetes Current Visit: Yes Status: Chronic Continue home meds Continue Accu-Cheks q6H Low dose SSI Qualifiers: Diabetes mellitus type: type 2 Diabetes mellitus terminal supervisor insulin use: with terminal supervisor use Diabetes mellitus complication status: with skin complications Diabetes mellitus complication detail: with foot ulcer Qualified Code(s): E11.621 - Type 2 diabetes mellitus with foot ulcer; L97.509 - Non-pressure chronic ulcer of other part of unspecified foot with unspecified severity; Z79.4 - residential (current) use of insulin (14) DVT prophylaxis Current Visit: Yes Status: Acute Will start SQ Heparin and continue to monitor Hgb and platelets Subjective Principal diagnosis: CHF, AMI, C-Diff, GILES Interval history: Pt was BiPAPed overnight and continues to do well post extubation. Pt has had episodes of agitation which have required Ativan, Ativan prn has been added. We will consult PT/OT to help increase the patient's activity and try to decrease his reliance on BiPAP. UOP was mildly increased yesterday after the addition of hydralazine and nitro drip. Renal function has continued to decline with diuresis. Heart rate continues to show a slow afib with episodes of bradycardia that self resolve, cardio following. Pt has been increasingly agitated today and has been pulling off his nasal cannula, causing him to desaturate into the mid 80s. He was placed back on BiPAP after he pulled out his central line to prevent further disruption. There was a significant amount of bleeding associated with the loss of the central line, and since the pt is already anemic and has required blood transfusions we will repeat a CBC in appx 4 hours to look for signs of significant anemia. Objective PUL Vital signs: Last Vital Signs Temp 96.2 F L 10/16/18 04:00 Pulse 60 10/16/18 06:00 Resp 24 10/16/18 06:00 BP 101/54 10/16/18 06:00 Pulse Ox 98 10/16/18 06:00 General appearance: asleep Eyes: nonicteric Effort: normal Auscultation: bilateral: diminished breath sounds, rales Cardiovascular: irregular rhythm Gastrointestinal: soft, non-tender Integumentary: normal Extremities: pink and warm, edema (trace on RLE), other (left BKA) Results - Laboratory Findings CBC and BMP: 10/16/18 03:08 10/16/18 03:08 ABG ABG pH 7.39 pH Units (7.32-7.45) 10/15/18 04:24 ABG pCO2 36 mmHg (35-45) 10/15/18 04:24 ABG pO2 100 mmHg (85-104) 10/15/18 04:24 ABG O2 Saturation 98 % (95-98) 10/15/18 04:24 PT/INR, D-dimer PT 15.9 Seconds (9.4-12.1) H 10/13/18 03:40 Abnormal lab findings: Abnormal lab results WBC 3.8 K/mcL (4.3-11.1) L 10/14/18 03:56 RBC 3.02 M/mcL (4.19-5.50) L 10/16/18 03:08 Hgb 8.8 g/dL (12.9-16.9) L 10/16/18 03:08 Hct 28.2 % (37.5-50.1) L 10/16/18 03:08 MCHC 31.2 g/dL (31.6-35.5) L 10/16/18 03:08 RDW 16.4 % (11.5-14.5) H 10/16/18 03:08 Plt Count 70 K/mcL (140-400) L 10/16/18 03:08 Band Neutrophils % 70.0 % (0-4) H 10/09/18 22:18 Neutrophils # 9.6 K/mcL (1.6-8.9) H 10/10/18 04:00 Lymphocytes # 0.5 K/mcL (0.6-4.6) L 10/11/18 04:05 Platelet Estimate Slight Decrease (Normal) L 10/14/18 18:00 ESR 79 mm/hr (0-10) H 10/10/18 18:56 PT 15.9 Seconds (9.4-12.1) H 10/13/18 03:40 APTT 43.1 Seconds (26.0-36.0) H 10/13/18 03:40 Fibrinogen 465 mg/dL (169-393) H 10/10/18 17:15 Heparin Anti-Xa, Unfract 0.26 IU/mL (0.30-0.70) L 10/09/18 22:18 ABG pCO2 34 mmHg (35-45) L 10/13/18 04:36 ABG pO2 61 mmHg (85-104) L 10/14/18 05:01 ABG O2 Saturation 90 % (95-98) L 10/14/18 05:01 ABG Base Excess -3 mEq/L (-2 to 3) L 10/15/18 04:24 VBG pO2 69 mmHg (25-50) H 10/09/18 22:28 Sodium 134 mEq/L (136-145) L 10/16/18 03:08 Carbon Dioxide 16 mEq/L (23-29) L 10/16/18 03:08 BUN 38 mg/dL (8-23) H 10/16/18 03:08 Creatinine 2.83 mg/dL (0.70-1.30) H 10/16/18 03:08 Est GFR ( Amer) 27 (> 60) L 10/16/18 03:08 Est GFR (Non-Af Amer) 23 (> 60) L 10/16/18 03:08 Glucose 116 mg/dL (70-105) H 10/16/18 03:08 POC Glucose 121 mg/dL (70-99) H 10/15/18 23:23 Calcium 7.9 mg/dL (8.6-10.3) L 10/16/18 03:08 Venous Ioniz Calcium 1.09 mmol/L (1.15-1.35) L 10/15/18 03:48 AST 66 Units/L (13-39) H 10/09/18 22:18 Lactate Dehydrogenase 286 Units/L (140-271) H 10/10/18 19:23 Troponin I 31.20 ng/mL (< 0.04) H* 10/10/18 12:00 C-Reactive Protein 209 mg/L (Less than 10) H 10/10/18 19:23 B-Natriuretic Peptide 868 pg/mL (Less than 100) H 10/09/18 22:18 Serum Total Protein 5.9 g/dL (6.4-8.9) L 10/13/18 03:40 Albumin 2.0 g/dL (3.5-5.7) L 10/14/18 03:56 Globulin 3.6 g/dL (2.4-3.5) H 10/13/18 03:40 Albumin/Globulin Ratio 0.6 (1.1-2.2) L 10/13/18 03:40 Procalcitonin 53.10 ng/mL (0.00-0.15) H 10/10/18 05:00 Urine Clarity Cloudy (Clear) A 10/10/18 00:42 Urine Protein >=300 mg/dL (Neg-Trace) H 10/10/18 00:42 Urine Ketones Trace mg/dL (Negative) H 10/10/18 00:42 Urine Blood Trace (Negative) H 10/10/18 00:42 Urine Bilirubin Moderate (Negative) H 10/10/18 00:42 Urine Microscopic RBC 3-5 per hpf (0-3) H 10/10/18 00:42 Urine Microscopic WBC 5-15 per hpf (0-3) H 10/10/18 00:42 Ur Squamous Epith Cells Many per lpf (None-Few) H 10/10/18 00:42 Hyaline Casts Many per lpf (None-Few) H 10/10/18 00:42 Protein/Creatinin Ratio 1.00 mg/mg (0.00-0.20) H 10/13/18 15:30 Urine Total Protein 103 mg/dL (1-14) H 10/13/18 15:30 Nasal Screen MRSA (PCR) Positive (Negative) A 10/09/18 22:59 Stl C.diff Tox A&B Gene DETECTED (Not detect) A 10/09/18 13:59 Vancomycin Trough 23 mcg/mL (5-10) H 10/12/18 03:55 Crossmatch See Detail 10/14/18 11:05 - Microbiology Findings Microbiology Findings: Microbiology, Last 48 Hours 10/09/18 22:18 Blood Culture - Final Peripheral Venipuncture No growth. Final report. 10/09/18 22:18 Blood Culture - Final Peripheral Venipuncture No growth. Final report. - Clinical Findings Intake & Output: Intake & Output 10/15/18 10/15/18 10/16/18 15:59 23:59 07:59 Intake Total 120 / 395 125 / 395 170.9 / 170.9 Output Total 200 / 485 125 / 485 100 / 100 Balance -80 / -90 0 / -90 70.9 / 70.9 Weight 120.3 kg Consult Discharge Plan - Plan Referrals: NONE,PCP [Primary Care Provider] - <Chanelle Blanca - Last Filed: 10/18/18 01:27> Date of Encounter: 10/16/18 Objective PUL Vital signs: Last Vital Signs Temp 97.4 F L 10/16/18 07:30 Pulse 54 10/16/18 09:00 Resp 18 10/16/18 09:00 BP 112/45 10/16/18 09:00 Pulse Ox 94 10/16/18 09:00 Results - Laboratory Findings CBC and BMP: 10/17/18 03:33 10/17/18 03:33 ABG ABG pH 7.39 pH Units (7.32-7.45) 10/15/18 04:24 ABG pCO2 36 mmHg (35-45) 10/15/18 04:24 ABG pO2 100 mmHg (85-104) 10/15/18 04:24 ABG O2 Saturation 98 % (95-98) 10/15/18 04:24 PT/INR, D-dimer PT 15.9 Seconds (9.4-12.1) H 10/13/18 03:40 Abnormal lab findings: Abnormal lab results WBC 3.8 K/mcL (4.3-11.1) L 10/14/18 03:56 RBC 3.02 M/mcL (4.19-5.50) L 10/16/18 03:08 Hgb 8.8 g/dL (12.9-16.9) L 10/16/18 03:08 Hct 28.2 % (37.5-50.1) L 10/16/18 03:08 MCHC 31.2 g/dL (31.6-35.5) L 10/16/18 03:08 RDW 16.4 % (11.5-14.5) H 10/16/18 03:08 Plt Count 70 K/mcL (140-400) L 10/16/18 03:08 Band Neutrophils % 70.0 % (0-4) H 10/09/18 22:18 Neutrophils # 9.6 K/mcL (1.6-8.9) H 10/10/18 04:00 Lymphocytes # 0.5 K/mcL (0.6-4.6) L 10/11/18 04:05 Platelet Estimate Slight Decrease (Normal) L 10/14/18 18:00 ESR 79 mm/hr (0-10) H 10/10/18 18:56 PT 15.9 Seconds (9.4-12.1) H 10/13/18 03:40 APTT 43.1 Seconds (26.0-36.0) H 10/13/18 03:40 Fibrinogen 465 mg/dL (169-393) H 10/10/18 17:15 Heparin Anti-Xa, Unfract 0.26 IU/mL (0.30-0.70) L 10/09/18 22:18 ABG pCO2 34 mmHg (35-45) L 10/13/18 04:36 ABG pO2 61 mmHg (85-104) L 10/14/18 05:01 ABG O2 Saturation 90 % (95-98) L 10/14/18 05:01 ABG Base Excess -3 mEq/L (-2 to 3) L 10/15/18 04:24 VBG pO2 69 mmHg (25-50) H 10/09/18 22:28 Sodium 134 mEq/L (136-145) L 10/16/18 03:08 Carbon Dioxide 16 mEq/L (23-29) L 10/16/18 03:08 BUN 38 mg/dL (8-23) H 10/16/18 03:08 Creatinine 2.83 mg/dL (0.70-1.30) H 10/16/18 03:08 Est GFR ( Amer) 27 (> 60) L 10/16/18 03:08 Est GFR (Non-Af Amer) 23 (> 60) L 10/16/18 03:08 Glucose 116 mg/dL (70-105) H 10/16/18 03:08 POC Glucose 121 mg/dL (70-99) H 10/15/18 23:23 Calcium 7.9 mg/dL (8.6-10.3) L 10/16/18 03:08 Venous Ioniz Calcium 1.09 mmol/L (1.15-1.35) L 10/15/18 03:48 AST 66 Units/L (13-39) H 10/09/18 22:18 Lactate Dehydrogenase 286 Units/L (140-271) H 10/10/18 19:23 Troponin I 31.20 ng/mL (< 0.04) H* 10/10/18 12:00 C-Reactive Protein 209 mg/L (Less than 10) H 10/10/18 19:23 B-Natriuretic Peptide 868 pg/mL (Less than 100) H 10/09/18 22:18 Serum Total Protein 5.9 g/dL (6.4-8.9) L 10/13/18 03:40 Albumin 2.0 g/dL (3.5-5.7) L 10/14/18 03:56 Globulin 3.6 g/dL (2.4-3.5) H 10/13/18 03:40 Albumin/Globulin Ratio 0.6 (1.1-2.2) L 10/13/18 03:40 Procalcitonin 53.10 ng/mL (0.00-0.15) H 10/10/18 05:00 Urine Clarity Cloudy (Clear) A 10/10/18 00:42 Urine Protein >=300 mg/dL (Neg-Trace) H 10/10/18 00:42 Urine Ketones Trace mg/dL (Negative) H 10/10/18 00:42 Urine Blood Trace (Negative) H 10/10/18 00:42 Urine Bilirubin Moderate (Negative) H 10/10/18 00:42 Urine Microscopic RBC 3-5 per hpf (0-3) H 10/10/18 00:42 Urine Microscopic WBC 5-15 per hpf (0-3) H 10/10/18 00:42 Ur Squamous Epith Cells Many per lpf (None-Few) H 10/10/18 00:42 Hyaline Casts Many per lpf (None-Few) H 10/10/18 00:42 Protein/Creatinin Ratio 1.00 mg/mg (0.00-0.20) H 10/13/18 15:30 Urine Total Protein 103 mg/dL (1-14) H 10/13/18 15:30 Nasal Screen MRSA (PCR) Positive (Negative) A 10/09/18 22:59 Stl C.diff Tox A&B Gene DETECTED (Not detect) A 10/09/18 13:59 Vancomycin Trough 23 mcg/mL (5-10) H 10/12/18 03:55 Crossmatch See Detail 10/14/18 11:05 - Microbiology Findings Microbiology Findings: Microbiology, Last 48 Hours 10/09/18 22:18 Blood Culture - Final Peripheral Venipuncture No growth. Final report. 10/09/18 22:18 Blood Culture - Final Peripheral Venipuncture No growth. Final report. - Clinical Findings Intake & Output: Intake & Output 10/15/18 10/16/18 10/16/18 23:59 07:59 15:59 Intake Total 125 / 395 170.9 / 290.9 120 / 290.9 Output Total 125 / 485 120 / 120 Balance 0 / -90 50.9 / 170.9 120 / 170.9 Weight 120.3 kg - Attending Attestation I examined this patient and my medical decision-making was reviewed with the Resident Physician. I agree with the documented findings, disposition and treatment plan as described except to the extent set forth below. Patient seen and examined. Labs, radiology, chart personally reviewed. 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 Will need to lower sedation as much as possible . Physical therapy will be important and mobilization, however in this patient it is very difficult. Patient will need to be in ICU because there is a high chance he could come back again if he is transferred to the floor. He is not able to do any IS and he is very weak. Cardiovascular: relatively stable and cardiology is following up with his slow A.fib and he is not getting his medical treatment for his CHF because of his bradycardia and GILES which is making the situation even worse.Will defer this to the cardiology team. GI: Nutrition per dietary and GI prophylaxis per routine and dietary is following up. He will need free water, which is difficult and may need IV fluid replacement. Heme: DVT prophylaxis per routine ID: Continue antibiotics and plan to de-escalation. ID team is following up Renal; urine out put and renal function reviewed and nephrology is following up. Patient may end up needing HD. Endorcine: blood glucose is monitored Lines: all lines checked and no evidence of infections Skin: skin care to prevent pressure ulcers per nursing routine care Dispo: ICU Code: Full. Prognosis. Poor I spent 32 min of Critical Care time with this patient. It involved decision making of high complexity to assess, manipulate, and support vital organ system failure and/or to prevent further life threatening deterioration of the patient's condition. The time involved in the performance of separately reporta ble procedures was not counted toward critical care time.
[2018-10-16] MEDS: MetroNIDAZOLE 500 MG/100 ML 500 MG/100 ML BAG IVPB SCH ×2 (07:03→17:01)
[2018-10-16] MEDS: Budesonide/Formoterol 160/4.5 1 PUFF INH IH SCH ×2 (07:45→20:56)
[2018-10-16] MEDS: Cefepime HCl 1,000 MG in Water for inj. (sterile) 20 ML IVP SCH ×2 (07:59→21:08)
[2018-10-16] MEDS: Aspirin 81 MG TAB.CHEW PO SCH (07:59)
[2018-10-16] MEDS: Vancomycin Oral Soln 125 MG/2.5 ML UDC PO SCH ×4 (08:00→21:08)
[2018-10-16] MEDS: *HR* LORazepam 2 MG/ML VIAL IVP PRN (09:34)
--- NOTE | 2018-10-16 10:49 | Electrophysiology Consult Note ---
<Antonio Savage - Last Filed: 10/16/18 13:28> Date of Encounter: 10/16/18 Time of Encounter: 10:36 Assessment and Plan (1) Wenckebach second degree AV block Current Visit: No Status: Acute Mobitz type I- Pt noted to have mobitz type I on telemetry. EKG not clear due to low voltage. EKG history review shows clear history of mobitz type I in 2017. ICU telemetry reviewed. Appears avg HR is 6o or above. Min HR 38 bpm at 0803 am. Intermittent mobitz type I seen. No other block seen. No pauses. Patient denies symptoms. Continue to monitor during hospital stay. Recommend 2 week holter monitor at discharge and out-pt f/u. No indication for PPM at this time. (2) Paroxysmal atrial fibrillation Current Visit: Yes Status: Acute H/o PAF on eliquis. HR controlled. Currently mobitz type I. Eliquis held during stay due to acute anemia. Restart if felt to be safe from anemia standpoint. Pt on asa and plavix for recent stent. Discussion w patient/family: The assessment and plan as outlined above was discussed with the patient and/or family members who expressed understanding and agreement. All questions were answered. Thank you for involving us in the care of your patient. Please call with any questions. History of Present Illness Consult date: 10/16/18 Requesting physician: Rosemary Coleman Consult reason: Mobitz type I Chief complaint: Low HR History of present illness: Mr. Sanford is a 63 year old male with h/o CABG here with NSTEMI s/p PCI to the SVG graft, PAF, CKD, HTN, HLD who presented from [facility] for concern for PR, GILES, and anemia. Urgent [facility] completed for ongoing symptoms and troponin up to 30. He received PCI to his SVG graft. He was intubated and sedated until 10/14/18 when he was extubated. Patient now on nasal cannula. He is slow to respond to answer questions and has some difficulty swallowing. Denies chest pain, SOB, or palpitations. Yesterday he was noted to have intermittent bradycardia with HR in the 30's. At that time patient was lethargic. Mobitz type I seen on telemetry. EKG does not confirm this His bb is on hold due to hypotension. Electrophysiology consulted for further evaluation. Past Med Surg Social Fam HX - Past Medical History Medical history: asthma, atrial fibrillation, CHF, coronary artery disease, diabetes, GERD, hyperlipidemia, hypertension, renal disease, thyroid disease, other Additional medical history: ckd 4 Psychiatric history: depression - Past Surgical History Surgical History: cholecystectomy, coronary bypass (CABG), sinus surgery Additional surgical history: CABG x3, BCC removed from L ear, heart catheterization, cataracts removed, eye surgery, - Social History Smoking Status: Former smoker Smokeless Tobacco Status: No Alcohol use: none Drug use: none - Family History Mother Adopted: Yes Living Status: Hx Family Endocrine Disorder: Yes (Diabetes) Father Living Status: Hx Family Cardiac Disorders: Yes (Coronary artery disease) Medications and Allergies Albuterol Neb [Proventil Neb] 2.5 mg IH Q4HR PRN 10/10/18 [History] Albuterol Sulfate [Proventil Inhaler] 2 puff IH Q4H PRN 10/10/18 [History] Amlodipine Besylate 10 mg PO DAILY 10/10/18 [History] Beclomethasone Dipropionate [QVAR 80 mcg REDIHALER] 2 puff IH BID PRN 10/10/18 [History] Bumetanide [Bumex] 1 mg PO DAILY 10/10/18 [History] Cholecalciferol (Vitamin D3) [Vitamin D3] 4,000 unit PO DAILY 10/10/18 [History] Ergocalciferol (VITAMIN D2) [Vitamin D2] 50,000 unit PO ASHER 10/10/18 [History] Ferrous Gluconate 324 mg PO DAILY 10/10/18 [History] Levothyroxine Sodium 75 mcg PO DAILY 10/10/18 [History] Montelukast [Singulair] 10 mg PO HS 10/10/18 [History] Sevelamer [Renvela] 800 mg PO TIDWM 10/10/18 [History] Simvastatin [Zocor] 40 mg PO HS 10/10/18 [History] Sodium Bicarbonate 650 mg PO TID 10/10/18 [History] Allergy/AdvReac Type Severity Reaction Status Date / Time acetaminophen [From Percocet] Allergy Hives Verified 12/24/16 13:43 atorvastatin [From Lipitor] Allergy Hives Verified 12/24/16 13:43 azithromycin Allergy Hives Verified 12/24/16 13:43 [From Zithromax Z-Sharad] Cefaclor [From Ceclor] Allergy Hives Verified 12/24/16 13:43 cephalexin [From Keflex] Allergy Hives Verified 12/24/16 13:43 ciprofloxacin [From Cipro] Allergy Hives Verified 12/24/16 13:43 clarithromycin [From Biaxin] Allergy Hives Verified 12/24/16 13:43 clindamycin Allergy Hives Verified 12/24/16 13:43 metoprolol Allergy Hives Verified 12/24/16 13:43 moxifloxacin [From Avelox] Allergy Hives Verified 12/24/16 13:43 oxycodone [From Percocet] Allergy Hives Verified 12/24/16 13:43 prednisone Allergy Hives Verified 12/24/16 13:43 Streptomycin Allergy Hives Verified 12/24/16 13:43 sulfamethoxazole Allergy Hives Verified 12/24/16 13:43 [From Bactrim] trimethoprim [From Bactrim] Allergy Hives Verified 12/24/16 13:43 All Systems Review: The remainder of the systems were reviewed and are negative Physical Examination Vital Signs, Last 4 Hours Temp Pulse Resp BP Pulse Ox 10/16/18 10:00 55 22 112/45 97 10/16/18 09:00 54 18 112/45 94 10/16/18 08:00 56 18 102/57 92 10/16/18 07:30 97.4 F L 10/16/18 07:10 52 10/16/18 07:00 49 16 113/45 100 General: Other (Slow to respond or does not respond) HEENT: Atraumatic, Normocephaly, Mucus Membranes Moist Neck: No JVD, Normal carotid pulses Cardiac: Other (Irregular) Lungs: Normal Breath Sounds, No Wheeze, Rales, Rhonchi Neuro: Other (Slow responses, genralized weakness, will not follow commands) Abdomen: Soft, Non-Tender Skin: No rashes noted on visualized skin Musculoskeletal: No Chest Wall Tenderness Extremities: No Clubbing, No Cyanosis, Normal Pulses, Other (1+ BLE edema) Results 10/16/18 03:08 10/16/18 03:08 Lab Results 10/16/18 10/16/18 03:08 03:08 WBC 4.3 Hgb 8.8 L Hct 28.2 L Plt Count 70 L Sodium 134 L Potassium 4.4 Chloride 106 Carbon Dioxide 16 L BUN 38 H Creatinine 2.83 H Glucose 116 H Calcium 7.9 L Magnesium 2.1 - Imaging and Cardiology Echo: report reviewed Cardiac cath: report reviewed Consult Discharge Plan - Plan Referrals: NONE,PCP [Primary Care Provider] - <KaranDarvin Lux - Last Filed: 10/16/18 14:05> Date of Encounter: 10/16/18 - Attending Attestation I have personally performed a face to face evaluation on this patient. I have reviewed and agree with the care plan. History and Exam by me shows: Asymptomatic? wenkebach. Woould contine to monitor. Could follow up as outpt., may need elective pacemaker in future. Assessment and Plan Discussion w patient/family: The assessment and plan as outlined above was discussed with the patient and/or family members who expressed understanding and agreement. All questions were answered. Thank you for involving us in the care of your patient. Please call with any questions. History of Present Illness History of present illness: Mr. Sanford is a 63 year old male All Systems Review: The remainder of the systems were reviewed and are negative Physical Examination Vital Signs, Last 4 Hours Temp Pulse Resp BP Pulse Ox 10/16/18 13:00 54 22 93/70 98 10/16/18 12:35 97.4 F L 10/16/18 12:25 48 27 98/63 86 10/16/18 11:41 20 94 10/16/18 11:00 54 24 107/64 92 Results 10/16/18 03:08 10/16/18 03:08 Lab Results 10/16/18 10/16/18 03:08 03:08 WBC 4.3 Hgb 8.8 L Hct 28.2 L Plt Count 70 L Sodium 134 L Potassium 4.4 Chloride 106 Carbon Dioxide 16 L BUN 38 H Creatinine 2.83 H Glucose 116 H Calcium 7.9 L Magnesium 2.1
--- NOTE | 2018-10-16 11:09 | Infectious Disease Progress No ---
ID Progress Note Date of Encounter: 10/16/18 Time of Encounter: 10:00 - Subjective Subjective: Patient is seen and examined at the bedside. He is day 2 status post extubation. Patient to continues to be lethargic, eyes closed but does open to commands, responds in YES/NO , squeezes arms on commands, but is not oriented person, place and time. He is afebrile, not leukocytotic, 94% on 4 L next cannula, patient's platelet count has been decreasing since his ICU admission with a decrement from 134 on admission to 70 now. he is currently on day 7 of IV 500MG Flagyl, day 7 of IV 1 g cefepime, will be started on day 2 of PO 125 mg Vancomycin crushed in apple sauce. Patient's Creatinine continues to spike up with a value of 2.83 today . - Objective CBC & Chem 7: 10/16/18 03:08 10/16/18 03:08 - Exam Vitals: Temp Pulse Resp BP Pulse Ox 97.4 F L 55 22 112/45 97 10/16/18 07:30 10/16/18 10:00 10/16/18 10:00 10/16/18 10:00 10/16/18 10:00 Exam: Gen.: Vitals noted. No acute distress. On 4L NC HEENT: oropharynx clear, Normocephalic, atraumatic, MMM Neck: supple, no JVD, no lymphadenopathy, no carotid bruit. Cardiac: RRR, no murmur, +S1/S2, No BLE edema, PMI non-displaced Pulmonary: bilateral wheezing, no rales or rhonchi, equal chest expansion Abdomen: soft, nontender, BS noted, no guarding, undistended. No organomegaly, no pulsatile masses, Skin: R leg cellulites drapped in bandage, warm and dry Extremities: Left leg amputated, R leg cellulites drapped in bandage, warm and dry MSK: ROM not assessed. no joint swelling noted, gait not assessed while in bed. Non tender calf or clubbing, no cyanosis/clubbing/ or edema Neuro: A&O, moves all extremities, no focal deficits, sensation intact - Assessment and Plan (1) Altered mental status Current Visit: Yes Status: Acute - likely multifactorial due to oliguric GILES , along with getting off of the ventilator, and discontinuation of versed. Patient also had hydrostatic pulmonary edema with a reduced EF of 25 % which is unchanged from his previous Echo. -patient opens his eyes to verbal commands resonds in a yes/no answer , not A*O to person, place and time. -Continuos neuro checks q4h, continue Abx for PNA, diurese when able for pleural effusion. Qualifiers: Altered mental status type: unspecified Qualified Code(s): R41.82 - Altered mental status, unspecified SNOMED Code(s): 843480241 (2) Shock Current Visit: Yes Status: Acute -Resolved , patient currently extubated and off pressors -Was Likely cardiogenic in nature -Patient was transferred from [facility] to ICU because of diarrheal episodes for the past 2 weeks accompanied by abdominal pain -Pertinent Vitals /Labs on admission: Temp: 99.9, Pulse: 97, RR: 27, WBC: 15.7, Band neutrophils 70%, Lactate : 2.1, BNP: 2898. -Pertinent Vitals /Labs now: Temp: 97.8, Pulse: 69, RR: 14, WBC: 4.1 -He also has a right leg cellulitis- no evidence of any bleeding or serosanguineous discharge -10/09/18 Chest x-ray showed bilateral mild and lower lung airspace disease and bilateral pleural effusion with concerns for pulmonary edema -10/10/18 Abdomen /Pelvic CT revealed wall thickening of the sigmoid colon likely related to lack of distention. Correlation for colitis is recommended -Currently on day 4 of IV 1g cefepime, day 3 of PO 500mg vancomycin, day 5 of IV 500 mg Flagyl PLAN -Continue PO Vancomycin but dose has reduced from 500 to 125 PO QID . If failed a swallow eval, continue vancomycin with NG tube. -Continue cefepime 1 g IV every 12 hours for a total of 10-14 days -Continue IV Flagyl 500mg q8h SNOMED Code(s): 11186827 (3) C. difficile diarrhea Current Visit: Yes Status: Acute -Patient has a history of associated diarrhea . -He was treated in the hospital in the month of June for C. difficile and was on discharged vancomycin taper. -Has been afebrile since admission, with white blood count of 15.7 at [facility] currently WBC is 4.1 -Stool C. difficile toxin A&B was detected . -And has a rectal tube in place no output. -CT abdominal pelvis did not show any evidence for toxic megacolon but there was wall thickening of the sigmoid colon PLAN: -Continue vancomycin 125mg PO QID crushed in apple sauce until patient clears the swallow evaluation SNOMED Code(s): 5171677632409 (4) Cellulitis of right leg Current Visit: Yes Status: Acute -Patient has a history of cellulitis of the right leg -10/08/18 recent wound culture grew gram-negative rods, sensitivity pending - 06/21/18 would culture grew : S aureus, Pseudomonas aeruginosa - P aeruginosa: S: Cefepime, ceftazidime, ciprofloxacin, gentamicin, independent, levofloxacin, Zosyn, tobramycin - S auerus: S - daptomycin, doxycycline, gentamicin, oxacillin, rifampin, tetracycline, Zosyn, vancomycin - 06/18/18 would culture grew : Group B strep, Pseudomonas aeruginosa which were pansensitive -Patient is not afebrile at the moment , His white blood count trending down from 15.7 yesterday to 9.3 today. -Currently on day 7 of Cefepime 2g IV q 12 h through 10/23 for a total of 14 days. - SNOMED Code(s): 886688949 (5) Pneumonia Current Visit: Yes Status: Acute Etiology unknown Procal significantly elevated at 53.1 on admission. on physical exam he has bilateral wheezes. 10/11/18: CXR Consolidation is likely pleural efusion but cannot rule out pneumonia at this time 10/14/18: CXR Improving bibasilar atelectesis or PNA Currently on day 7 of IV 500mg Flagyl, day 7 of 1gm cefepime q12h. will need incentive spirometer once patient is alert and oriented Qualifiers: Pneumonia type: due to unspecified organism Laterality: unspecified laterality Lung location: unspecified part of lung Qualified Code(s): J18.9 - Pneumonia, unspecified organism SNOMED Code(s): 967655631 (6) NSTEMI (non-ST elevated myocardial infarction) Current Visit: Yes Status: Acute Patient found to have significant elevation in his troponin with troponin less than upper limit of normal at [facility] and upon arrival to [place] was found to have troponin of 30.22 and repeat 30.47 * Echocardiogram limited was obtained which shows EF of 25% which is a significant drop from previous in 05/30/18 which had a EF of 60-65% * The patient does have a long history of cardiac disease and has undergone CABG prior * Patient underwent catheterization overnight with Dr. Velasquez and a bare metal stent was placed in the saphenous venous graft OM1 SNOMED Code(s): 84693738 (7) Congestive heart failure Current Visit: No Status: Acute - Patient has an acute decompensation of heart failure likely due to NSTEMI -Recent echocardiogram showed an EF of 25% which was a significant drop from his EF in 05/2018 when it was 60-65% -Patient was initially started on 20 IV Lasix but since patient is preload dependent owing to his reduced EF - Currently holding off on his diuretics because of worsening GILES on CKD - Further management as per the ICU team Qualifiers: Heart failure type: unspecified Heart failure chronicity: chronic Qualified Code(s): I50.9 - Heart failure, unspecified SNOMED Code(s): 09125988 (8) CKD (chronic kidney disease) stage 3, GFR 30-59 ml/min Current Visit: Yes Status: Acute -She has a history of CK D of a stage III -Patient has had a bump in his creatinine from 1.56 on admission to 2.83 . -Avoid nephrotoxic agent and renally dose steroids. No indication for IV hydration because of pulmonary edema but will resume gnetly hydration once patient is hemodynamically stable SNOMED Code(s): 220931346 (9) Allergy to multiple antibiotics Current Visit: Yes Status: Acute Patient allergic to multiple antibiotics like Biaxin, Keflex, Levaquin, Zithromax and clindamycin SNOMED Code(s): 133139626431212 (10) DM type 2 (diabetes mellitus, type 2) Current Visit: Yes Status: Chronic Patient has a history of diabetes. Currently on low-dose sliding scale insulin Qualifiers: Diabetes mellitus vermin exterminator insulin use: without vermin exterminator use Diabetes mellitus complication status: without complication Qualified Code(s): E11.9 - Type 2 diabetes mellitus without complications SNOMED Code(s): 31324908 Consult Discharge Plan - Plan Referrals: NONE,PCP [Primary Care Provider] - - Attending Attestation Assessment and plan: 1. shock - cardiogenic? improved. off dopamine 2. Pneumonia - likely aspiration; improved 3. C diff colitis 4. lower extremities venous stasis 5. third spacing 6. Metabolic encephalopathy Recommendations: continue cefepime, continue flagyl and oral vancomycin duration of treatment 14 days total
--- NOTE | 2018-10-16 12:16 | Nephrology Progress Note ---
Date of Encounter: 10/16/18 Time of Encounter: 12:13 - Assessment and Plan (1) Acute on chronic kidney failure Current Visit: Yes Status: Acute The patient has acute kidney injury superimposed on chronic kidney disease. He has a variable baseline renal function. Reviewing his records reveals that he has had dialysis in the past for an acute kidney injury episode. His current acute kidney injury is multifactorial from sepsis along with contrast exposure. He was oliguric, however, it appears that his renal function may be worsening slightly over the last few days. At this time he does not need dialysis. We will monitor closely. Will start bicarbonate drip for his metabolic acidosis. If his renal function worsens tomorrow after hydration he may need dialysis over the weekend. Keep his mean blood pressure above 65. Qualifiers: Acute renal failure type: unspecified Chronic kidney disease stage: stage 3 (moderate) Qualified Code(s): N17.9 - Acute kidney failure, unspecified; N18.3 - Chronic kidney disease, stage 3 (moderate) (2) Acute [place] Current Visit: Yes Status: Acute Qualifiers: Myocardial infarction type: unspecified Involved coronary artery: unspecified coronary artery Qualified Code(s): I21.9 - Acute myocardial infarction, unspecified (3) Acute exacerbation of CHF (congestive heart failure) Current Visit: Yes Status: Acute Qualifiers: Heart failure type: systolic Qualified Code(s): I50.23 - Acute on chronic systolic (congestive) heart failure (4) Acute on chronic blood loss anemia Current Visit: Yes Status: Acute (5) DM type 2 (diabetes mellitus, type 2) Current Visit: Yes Status: Chronic Qualifiers: Diabetes mellitus parts counterman insulin use: without alf use Diabetes mellitus complication status: without complication Qualified Code(s): E11.9 - Type 2 diabetes mellitus without complications (6) Septic shock Current Visit: Yes Status: Acute (7) Anemia Current Visit: Yes Status: Chronic Qualifiers: Anemia type: due to chronic kidney disease Chronic kidney disease stage: stage 3 (moderate) Qualified Code(s): N18.3 - Chronic kidney disease, stage 3 (moderate); D63.1 - Anemia in chronic kidney disease (8) Hypertension Current Visit: Yes Status: Chronic Qualifiers: Hypertension type: essential hypertension Qualified Code(s): I10 - Essential (primary) hypertension Subjective Principal diagnosis: CHF, AMI, C-Diff, GILES Interval history: Patient was seen. He is extubated, comfortable, and confused. A complete review of systems is unobtainable secondary to his mental status. Objective - Vital Signs Vital signs: Vital Signs Temp Pulse Resp BP Pulse Ox 10/16/18 11:41 20 94 10/16/18 11:00 54 24 107/64 92 10/16/18 10:00 55 22 112/45 97 10/16/18 09:00 54 18 112/45 94 10/16/18 08:00 56 18 102/57 92 10/16/18 07:45 26 113/45 99 10/16/18 07:30 97.4 F L 10/16/18 07:10 52 10/16/18 07:00 49 16 113/45 100 10/16/18 06:00 60 24 101/54 98 10/16/18 05:00 53 17 103/40 100 10/16/18 04:00 96.2 F L 54 19 101/48 100 10/16/18 03:43 31 119/49 100 10/16/18 03:00 53 25 119/49 97 10/16/18 02:00 53 33 116/60 95 10/16/18 01:00 57 22 123/48 94 10/16/18 00:02 96.9 F L 10/16/18 00:00 55 24 130/50 100 10/15/18 23:36 22 125/56 98 10/15/18 23:00 55 26 125/56 98 10/15/18 22:00 56 27 107/57 100 10/15/18 21:00 58 24 121/49 98 10/15/18 20:13 23 129/52 100 10/15/18 20:00 64 28 129/52 98 10/15/18 19:55 97.6 F 10/15/18 19:00 62 26 130/54 93 10/15/18 18:00 66 22 136/66 97 10/15/18 17:00 64 23 126/58 98 10/15/18 16:29 17 96 10/15/18 16:00 68 22 136/57 97 10/15/18 15:36 68 10/15/18 15:00 97.6 F 66 24 129/60 97 10/15/18 14:00 65 22 141/54 96 10/15/18 13:00 66 20 150/75 96 07/17/19 12:40 21 98 Intake and Output 10/15/18 10/16/18 10/16/18 23:59 07:59 15:59 Intake Total 125 / 395 170.9 / 290.9 120 / 290.9 Output Total 125 / 485 120 / 120 Balance 0 / -90 50.9 / 170.9 120 / 170.9 Intake: IV Fluids 125 / 395 170.9 / 290.9 120 / 290.9 DOPamine Premix 400mg/250mL 400 0 / 0 mg In 250 ml @ 15 MCG/KG/MIN 63.056 mls/hr IVC .Q3H58M SHERIDAN Rx#:[id number] Nitroglycerin Premix 25 MG/250 5 / 5 70.9 / 70.9 ML 25 mg In 250 ml @ 5 MCG/MIN 3 mls/hr IVC .Q24H SHERIDAN Rx#: [id number] Levophed 4 MG In Dextrose 5% 0 / 0 250 ML @ 8 MCG/MIN 30.48 mls/hr IVC CONT [facility]ERIDAN Rx#:[id number] Maxipime 1,000 MG In Water for 20 / 20 inj. (sterile) 20 ML @ 300 mls/ hr IVP Q12H SHERIDAN Rx#:[id number] Flagyl Premix 500 MG/100 ML 500 100 / 300 100 / 200 100 / 200 mg In 100 ml @ 100 mls/hr IVPB Q8HR SHERIDAN Rx#:[id number] Output: Catheter 125 / 485 120 / 120 Other: Weight 120.3 kg Blood Glucose* 111 121 Patient Weight 10/16/18 23:59 Weight 120.3 kg - General Appearance General appearance: Present: well-developed, well-nourished, obese EENT: Present: ATNC Neck: Present: supple Cardiology: Present: edema Additional Comments: bradycardic Gastrointestinal: Present: obese Integumentary: Present: warm and dry - Lab 10/16/18 03:08 10/16/18 03:08 Most recent lab results 10/16/18 03:08 Calcium 7.9 L Phosphorus 3.2 Magnesium 2.1 Consult Discharge Plan - Plan Referrals: NONE,PCP [Primary Care Provider] -
--- NOTE | 2018-10-16 12:45 | Palliative - Consult Note ---
Date of Encounter: 10/16/18 Time of Encounter: 11:30 - Assessment and Plan (1) Dyspnea Current Visit: Yes Status: Acute Assessment and plan: Patient remains lethargic. Day 2 of extubation. AMS multifactorial with DE (EF 25%) and oliguria GILES and C-diff. Patient placed back on Bipap this afternoon and tolerating well. Plan: Bipap supplemental O2 Duonebs SAUK-SUIATTLE up Qualifiers: Dyspnea type: unspecified Qualified Code(s): R06.00 - Dyspnea, unspecified (2) Goals of care, counseling/discussion Current Visit: Yes Status: Acute Assessment and plan: Called patients Trisha. Trisha (#[phone]) not able to travel to hospital till late this evening. Patient has son Chris Broussard and daughter Kari. Patient currently lives at home under his Trisha's care. Conducted phone discussion. Discussed patients recent DE, interventions and recent findings of 25% EF. Updated on recent overnight Bradycardia and Cardiology visit. Explained that Nephrology is following and patient had dialysis in the past. Trisha states that if patient were to need dialysis this stay that she supports the patient having that. Trisha states that DC plan will be to have patient return home and resume [facility] services. She reports having all the DME in the home and HH was doing the right leg dressing changes and care. Patient to remain FULL CODE and have medical interventions as needed. (3) Altered mental status Current Visit: Yes Status: Acute Assessment and plan: Patient remains lethargic. Day 2 of extubation. AMS multifactorial with DE (EF 25%) and oliguria GILES and C-diff. Nephrology following. Qualifiers: Altered mental status type: unspecified Qualified Code(s): R41.82 - Altered mental status, unspecified (4) Palliative care encounter Current Visit: Yes Status: Acute (5) Acute DE Current Visit: Yes Status: Acute Assessment and plan: Cardiology following patient. New onset of MObitz Type I for which patient has history. Underlying cardiac rhythm Atrial fib. EF now 25%. Family updated on patients condition. Qualifiers: Myocardial infarction type: unspecified Involved coronary artery: unspecif ied coronary artery Qualified Code(s): I21.9 - Acute myocardial infarction, unspecified Palliative-CN HPI - Data of Consult Patient: new to practice Consult date: 10/16/18 Requesting Physician: Fany Dominguez Primary Care Provider: PCP NONE - Consult Narrative Palliative Care/Comfort Measures: Palliative care Reason for consult: Goals of Care History of present illness: Mr. Sanford is a 63 year old male with h/o CABG admitted with NSTEMI s/p PCI to the SVG graft, PAF, CKD, HTN, HLD who presented from [facility] [employer] for concern for DE, GILES, and anemia. Patient with recent Left BKA and right leg cellulitis. Urgent LHC completed for ongoing symptoms and troponin up to 30. He received PCI to his SVG graft. He was intubated and sedated until 10/14/18 when he was extubated. Patient now POD of Cath on nasal cannula. He is slow to respond to answer questions and has some difficulty swallowing. Cardiology reconsulted this AM for overnight Bradycardia and Mobitz Type I block. 05/30/18 ECHO EF 65% now 25%. This palliative care consult is for goals of care discussion. CC: Maria Elena Becerra MD - Time Spent with Patient Time: Total time spent is greater than 50% in coordination of care (as documented) at patient's floor/unit and/or counseling patient: Past Med Surg Social Fam HX - Past Medical History Source: old records reviewed, obtained from family, nursing notes reviewed Medical history: asthma, atrial fibrillation, CHF, coronary artery disease, diabetes, GERD, hyperlipidemia, hypertension, renal disease, thyroid disease, other Additional medical history: ckd 4 Psychiatric history: depression - Past Surgical History Surgical History: cholecystectomy, coronary bypass (CABG), sinus surgery Additional surgical history: CABG x3, BCC removed from L ear, heart cathet erization, cataracts removed, eye surgery, Left BKA - Social History Smoking Status: Former smoker Smokeless Tobacco Status: No Alcohol use: none Drug use: none Occupational status: retired Current living situation: Home Activity Level: Bed bound Recent Out of Country Travel Within the Last 8 Weeks: No Exposure or Possible Exposure to Illness During Travel: No - Family History Mother Adopted: Yes Living Status: Hx Family Endocrine Disorder: Yes (Diabetes) Father Living Status: Hx Family Cardiac Disorders: Yes (Coronary artery disease) Medications and Allergies Albuterol Neb [Proventil Neb] 2.5 mg IH Q4HR PRN 10/10/18 [History] Albuterol Sulfate [Proventil Inhaler] 2 puff IH Q4H PRN 10/10/18 [History] Amlodipine Besylate 10 mg PO DAILY 10/10/18 [History] Beclomethasone Dipropionate [QVAR 80 mcg REDIHALER] 2 puff IH BID PRN 10/10/18 [History] Bumetanide [Bumex] 1 mg PO DAILY 10/10/18 [History] Cholecalciferol (Vitamin D3) [Vitamin D3] 4,000 unit PO DAILY 10/10/18 [History] Ergocalciferol (VITAMIN D2) [Vitamin D2] 50,000 unit PO ASHER 10/10/18 [History] Ferrous Gluconate 324 mg PO DAILY 10/10/18 [History] Levothyroxine Sodium 75 mcg PO DAILY 10/10/18 [History] Montelukast [Singulair] 10 mg PO HS 10/10/18 [History] Sevelamer [Renvela] 800 mg PO TIDWM 10/10/18 [History] Simvastatin [Zocor] 40 mg PO HS 10/10/18 [History] Sodium Bicarbonate 650 mg PO TID 10/10/18 [History] Allergy/AdvReac Type Severity Reaction Status Date / Time acetaminophen [From Percocet] Allergy Hives Verified 12/24/16 13:43 atorvastatin [From Lipitor] Allergy Hives Verified 12/24/16 13:43 azithromycin Allergy Hives Verified 12/24/16 13:43 [From Zithromax Z-Sharad] Cefaclor [From Ceclor] Allergy Hives Verified 12/24/16 13:43 cephalexin [From Keflex] Allergy Hives Verified 12/24/16 13:43 ciprofloxacin [From Cipro] Allergy Hives Verified 12/24/16 13:43 clarithromycin [From Biaxin] Allergy Hives Verified 12/24/16 13:43 clindamycin Allergy Hives Verified 12/24/16 13:43 metoprolol Allergy Hives Verified 12/24/16 13:43 moxifloxacin [From Avelox] Allergy Hives Verified 12/24/16 13:43 oxycodone [From Percocet] Allergy Hives Verified 12/24/16 13:43 prednisone Allergy Hives Verified 12/24/16 13:43 Streptomycin Allergy Hives Verified 12/24/16 13:43 sulfamethoxazole Allergy Hives Verified 12/24/16 13:43 [From Bactrim] trimethoprim [From Bactrim] Allergy Hives Verified 12/24/16 13:43 ROS unobtainable: due to mental status (Patient lethargic) - Constitutional Constitutional ROS PAL: lethargy - EENT Eyes: requires corrective lenses - Cardiovascular Cardiovascular ROS: orthopnea - Respiratory Respiratory: dyspnea - Gastrointestinal Gastrointestinal: as per HPI, abdominal pain (C-diff) - Musculoskeletal Musculoskeletal ROS IM: muscle weakness - Neurological Neurological ROS: weakness Palliative Care-Exam - Constitutional Vitals: Temp Pulse Resp BP Pulse Ox 97.4 F L 54 20 107/64 94 10/16/18 12:35 10/16/18 11:00 10/16/18 11:41 10/16/18 11:00 10/16/18 11:41 General appearance: Present: no acute distress - Head Head Exam: Present: atraumatic - Eye Eye exam: Present: PERRL - ENT ENT exam: Present: mucous membranes moist - Neck Neck exam: Present: tenderness - Respiratory Respiratory exam: Present: decreased breath sounds - Expanded Respiratory Exam Location: decreased breath sounds: Left, Right, Lower - Cardiovascular Cardiovascular exam: Present: RRR, +S1, +S2 - Expanded Cardiovascular Exam Peripheral pulses: 1+: Femoral (R) PM, Posterior Tibialis (R), Dorsalis Pedis (R) PM, 2+: Carotid (L) PM, Carotid (R) PM, Radial (L), Radial (R) - GI/Abdominal Exam additional comments: Rectal tube with liquid stool - Rectal Rectal Exam: Present: deferred - Catheter Type: Urethral (Vázquez) - Extremities Exam Extremities exam: Present: tenderness (Left BKA, Right leg dressing CDI) - Back Exam Back exam: Present: tenderness - Neurological Exam Neurological exam: Present: altered (Patient lethargic) - Expanded Neurological Exam Coma Scale Eye Opening: To Voice Coma Scale Motor Response: Localizes to Pain Coma Scale Verbal Response: Confused Coma Scale Total: 12 - Psychiatric Psychiatric exam: Present: flat affect - Skin Skin exam: Present: pallor, warm - Expanded Skin Exam Distribution of rash: Present: RLE (CDI dressing) Internal Medicine - CN: Reslt - Labs CBC & Chem 7: 10/16/18 03:08 10/16/18 03:08 Labs: Short CBC 10/16/18 Range/Units 03:08 WBC 4.3 (4.3-11.1) K/mcL Hgb 8.8 L (12.9-16.9) g/dL Hct 28.2 L (37.5-50.1) % Plt Count 70 L (140-400) K/mcL Neutrophils # 2.9 (1.6-8.9) K/mcL BMP 10/16/18 03:08 Sodium 134 L Potassium 4.4 Chloride 106 Carbon Dioxide 16 L BUN 38 H Creatinine 2.83 H Glucose 116 H Calcium 7.9 L - ABG Interpretation ABG results: ABG ABG pH 7.39 pH Units (7.32-7.45) 10/15/18 04:24 ABG pCO2 36 mmHg (35-45) 10/15/18 04:24 ABG pO2 100 mmHg (85-104) 10/15/18 04:24 ABG O2 Saturation 98 % (95-98) 10/15/18 04:24 PT/INR, D-dimer PT 15.9 Seconds (9.4-12.1) H 10/13/18 03:40 Consult Discharge Plan - Plan Referrals: NONE,PCP [Primary Care Provider] - Palliative Quality Palliative Quality: Screen for Code Status: Yes, Screen for Goals of Care: Yes, Screen for Pain: Yes, Screen for Nausea/Vomitting: Yes Code Status: 10/09/18 20:50 CODE [Resuscitation Status: Active] [RES] Routine Comment: Resuscitation Status: Full Code
--- NOTE | 2018-10-16 13:54 | Podiatry Progress Note ---
Date of Encounter: 10/16/18 Time of Encounter: 13:52 - Assessment and Plan (1) Right foot ulcer Current Visit: Yes Status: Chronic Assessment: Richard grade II ulceration right foot Sanguinous drainage noted to right lateral foot No erythema, edema, or lymphangitis noted to periwound lateral right foot Wound culture obtained Saturday10/08/18 returned group b strep and psuedomonas XR indeterminate for OM, negative for gas WBC 4.3, ESR 79, CRP 209 Plan: Local wound care orders placed Wound appears stable at this time ID managing ATB- appreciate recommendations Cleansed with 0.9 NS, covered with calcium alginate AG, covered with 4x4 dry gauze, and medipore Impression: XR/XR foot 3V RT IMPRESSION: Soft tissue swelling about the foot with great toe ulceration and subtle loss of the cortical white line of the underlying great toe distal phalangeal tuft which could indicate osteomyelitis. Soft tissue swelling about the foot could reflect edema and/or cellulitis. No soft tissue gas. D/ / Manan Powell / Manan Powell Interpreting Provider: Manan Powell Qualifiers: Non-pressure ulcer stage: limited to breakdown of skin Qualified Code(s): L97.511 - Non-pressure chronic ulcer of other part of right foot limited to breakdown of skin (2) Venous stasis dermatitis of right lower extremity Current Visit: Yes Status: Acute Assessment: Erythema noted to RLE 3rd spacing noted, 3 plus pitting edema Xerosis noted RLE No ulceration noted Plan: Cleansed with warm water and soap Stop local wound care, leave LIANNA Subjective Principal diagnosis: CHF, AMI, C-Diff, GILES Interval history: Patient currently on bipap machine. Able to shake head yes or no. Lethargic. Objective - Vital Signs Vital Signs: Vital Signs Temp Pulse Resp BP Pulse Ox 10/16/18 13:00 54 22 93/70 98 10/16/18 12:35 97.4 F L 10/16/18 12:25 48 27 98/63 86 10/16/18 11:41 20 94 10/16/18 11:00 54 24 107/64 92 07/18/19 10:00 55 22 112/45 97 10/16/18 09:00 54 18 112/45 94 10/16/18 08:00 56 18 102/57 92 10/16/18 07:45 26 113/45 99 10/16/18 07:30 97.4 F L 10/16/18 07:10 52 10/16/18 07:00 49 16 113/45 100 10/16/18 06:00 60 24 101/54 98 10/16/18 05:00 53 17 103/40 100 10/16/18 04:00 96.2 F L 54 19 101/48 100 10/16/18 03:43 31 119/49 100 10/16/18 03:00 53 25 119/49 97 10/16/18 02:00 53 33 116/60 95 10/16/18 01:00 57 22 123/48 94 10/16/18 00:02 96.9 F L 10/16/18 00:00 55 24 130/50 100 10/15/18 23:36 22 125/56 98 10/15/18 23:00 55 26 125/56 98 10/15/18 22:00 56 27 107/57 100 10/15/18 21:00 58 24 121/49 98 10/15/18 20:13 23 129/52 100 10/15/18 20:00 64 28 129/52 98 10/15/18 19:55 97.6 F 10/15/18 19:00 62 26 130/54 93 10/15/18 18:00 66 22 136/66 97 10/15/18 17:00 64 23 126/58 98 10/15/18 16:29 17 96 10/15/18 16:00 68 22 136/57 97 10/15/18 15:36 68 10/15/18 15:00 97.6 F 66 24 129/60 97 10/15/18 14:00 65 22 141/54 96 Intake and Output 10/15/18 10/16/18 10/16/18 23:59 07:59 15:59 Intake Total 125 / 395 170.9 / 290.9 120 / 290.9 Output Total 125 / 485 120 / 150 30 / 150 Balance 0 / -90 50.9 / 140.9 90 / 140.9 Intake: IV Fluids 125 / 395 170.9 / 290.9 120 / 290.9 DOPamine Premix 400mg/250mL 400 0 / 0 mg In 250 ml @ 15 MCG/KG/MIN 63.056 mls/hr IVC .Q3H58M [facility] Rx#:[id number] Nitroglycerin Premix 25 MG/250 5 / 5 70.9 / 70.9 ML 25 mg In 250 ml @ 5 MCG/MIN 3 mls/hr IVC .Q24H [facility] Rx#: [id number] Levophed 4 MG In Dextrose 5% 0 / 0 250 ML @ 8 MCG/MIN 30.48 mls/hr IVC CONT [facility] Rx#:[id number] Maxipime 1,000 MG In Water for 20 / 40 20 / 20 inj. (sterile) 20 ML @ 300 mls/ hr IVP Q12H [facility] Rx#:[id number] Flagyl Premix 500 MG/100 ML 500 100 / 300 100 / 200 100 / 200 mg In 100 ml @ 100 mls/hr IVPB Q8HR [facility] Rx#:[id number] Output: Catheter 125 / 485 120 / 150 30 / 150 Other: Weight 120.3 kg Blood Glucose* 111 121 120 Patient Weight 10/16/18 23:59 Weight 120.3 kg - Exam Exam: Constitiutional: Lethargic, shakes head yes or no Vascular: 1/4 DP/PT RLE, CFT <3 sec to all digits RLE, warm to warm from tibia to toes RLE, L BKA Neurologic: normal plantar response RLE Dermatologic: Richard grade II ulceration measuring 0.5 x 0.5 x 0.2 cm, sangunious drainage noted, no edema, no lymphangitis noted to right foot, erythema noted to RLE, 3/4 edema noted to RLE, xerosis of skin noted - Lab Result Diagrams: 10/16/18 03:08 10/16/18 03:08 Labs: Abnormal lab results WBC 3.8 K/mcL (4.3-11.1) L 10/14/18 03:56 RBC 3.02 M/mcL (4.19-5.50) L 10/16/18 03:08 Hgb 8.8 g/dL (12.9-16.9) L 10/16/18 03:08 Hct 28.2 % (37.5-50.1) L 10/16/18 03:08 MCHC 31.2 g/dL (31.6-35.5) L 10/16/18 03:08 RDW 16.4 % (11.5-14.5) H 10/16/18 03:08 Plt Count 70 K/mcL (140-400) L 10/16/18 03:08 Band Neutrophils % 70.0 % (0-4) H 10/09/18 22:18 Neutrophils # 9.6 K/mcL (1.6-8.9) H 10/10/18 04:00 Lymphocytes # 0.5 K/mcL (0.6-4.6) L 10/11/18 04:05 Platelet Estimate Slight Decrease (Normal) L 10/14/18 18:00 ESR 79 mm/hr (0-10) H 10/10/18 18:56 PT 15.9 Seconds (9.4-12.1) H 10/13/18 03:40 APTT 43.1 Seconds (26.0-36.0) H 10/13/18 03:40 Fibrinogen 465 mg/dL (169-393) H 10/10/18 17:15 Heparin Anti-Xa, Unfract 0.26 IU/mL (0.30-0.70) L 10/09/18 22:18 ABG pCO2 34 mmHg (35-45) L 10/13/18 04:36 ABG pO2 61 mmHg (85-104) L 10/14/18 05:01 ABG O2 Saturation 90 % (95-98) L 10/14/18 05:01 ABG Base Excess -3 mEq/L (-2 to 3) L 10/15/18 04:24 VBG pO2 69 mmHg (25-50) H 10/09/18 22:28 Sodium 134 mEq/L (136-145) L 10/16/18 03:08 Carbon Dioxide 16 mEq/L (23-29) L 10/16/18 03:08 BUN 38 mg/dL (8-23) H 10/16/18 03:08 Creatinine 2.83 mg/dL (0.70-1.30) H 10/16/18 03:08 Est GFR ( Amer) 27 (> 60) L 10/16/18 03:08 Est GFR (Non-Af Amer) 23 (> 60) L 10/16/18 03:08 Glucose 116 mg/dL (70-105) H 10/16/18 03:08 POC Glucose 121 mg/dL (70-99) H 10/15/18 23:23 Calcium 7.9 mg/dL (8.6-10.3) L 10/16/18 03:08 Venous Ioniz Calcium 1.09 mmol/L (1.15-1.35) L 10/15/18 03:48 AST 66 Units/L (13-39) H 10/09/18 22:18 Lactate Dehydrogenase 286 Units/L (140-271) H 10/10/18 19:23 Troponin I 31.20 ng/mL (< 0.04) H* 10/10/18 12:00 C-Reactive Protein 209 mg/L (Less than 10) H 10/10/18 19:23 B-Natriuretic Peptide 868 pg/mL (Less than 100) H 10/09/18 22:18 Serum Total Protein 5.9 g/dL (6.4-8.9) L 10/13/18 03:40 Albumin 2.0 g/dL (3.5-5.7) L 10/14/18 03:56 Globulin 3.6 g/dL (2.4-3.5) H 10/13/18 03:40 Albumin/Globulin Ratio 0.6 (1.1-2.2) L 10/13/18 03:40 Procalcitonin 53.10 ng/mL (0.00-0.15) H 10/10/18 05:00 Urine Clarity Cloudy (Clear) A 10/10/18 00:42 Urine Protein >=300 mg/dL (Neg-Trace) H 10/10/18 00:42 Urine Ketones Trace mg/dL (Negative) H 10/10/18 00:42 Urine Blood Trace (Negative) H 10/10/18 00:42 Urine Bilirubin Moderate (Negative) H 10/10/18 00:42 Urine Microscopic RBC 3-5 per hpf (0-3) H 10/10/18 00:42 Urine Microscopic WBC 5-15 per hpf (0-3) H 10/10/18 00:42 Ur Squamous Epith Cells Many per lpf (None-Few) H 10/10/18 00:42 Hyaline Casts Many per lpf (None-Few) H 10/10/18 00:42 Protein/Creatinin Ratio 1.00 mg/mg (0.00-0.20) H 10/13/18 15:30 Urine Total Protein 103 mg/dL (1-14) H 10/13/18 15:30 Nasal Screen MRSA (PCR) Positive (Negative) A 10/09/18 22:59 Stl C.diff Tox A&B Gene DETECTED (Not detect) A 10/09/18 13:59 Vancomycin Trough 23 mcg/mL (5-10) H 10/12/18 03:55 Crossmatch See Detail 10/14/18 11:05 Microbiology, Last 48 Hours 10/09/18 22:18 Blood Culture - Final Peripheral Venipuncture No growth. Final report. 10/09/18 22:18 Blood Culture - Final Peripheral Venipuncture No growth. Final report. Consult Discharge Plan - Plan Referrals: NONE,PCP [Primary Care Provider] -
[2018-10-16] MEDS: Sodium Bicarbonate 150 MEQ in D5% in Water 1,000 ML IVC SCH (14:15)
--- NOTE | 2018-10-16 14:32 | Electrocardiograph Report ---
[address] [place] [address] Test Date: 2018-10-15 Pat Name: Chris Sanford Department: 109 Room: [facility] Gender: M Emergency Medicine Physician Assistant: : 1955 Requested By: Fany Dominguez Order Number: [id number] Reading MD: Michele Sellers Measurements Intervals [place] Rate: 63 P: [place]: 0 QRS: -20 QRSD: 126 T: 105 QT: 426 QTc: 434 Interpretive Statements ATRIAL FIBRILLATION POSSIBLE ANTERIOR MYOCARDIAL INFARCTION, PROBABLY OLD ABNORMAL RHYTHM ECG Electronically Signed On 10-16-2018 14:30:40 EDT by Michele Sellers
--- NOTE | 2018-10-16 14:49 | Electrocardiograph Report ---
[address] [address] Test Date: 2018-10-16 Pat Name: Chris Sanford Department: 109 Room: [facility] Gender: M Attorney At Law: : 1955 Requested By: Antonio Savage Order Number: [id number] Reading MD: Michele Sellers Measurements Intervals [place] Rate: 52 P: [place]: 0 QRS: -18 QRSD: 117 T: 115 QT: 492 QTc: 473 Interpretive Statements ATRIAL FIBRILLATION WITH SLOW VENTRICULAR RESPONSE LOW QRS VOLTAGE IN EXTREMITY LEADS MODERATE INTRAVENTRICULAR CONDUCTION DELAY PROLONGED QT INTERVAL Electronically Signed On 10-16-2018 14:47:30 EDT by Michele Sellers
[2018-10-16] MEDS: hydrALAZINE 25 MG TABLET PO SCH (17:04)
[2018-10-16 20:45] LABS: Basophils % 0.4 %; Eosinophils # 0.1 K/mcL (0.0-0.6); Eosinophils % 2.1 %; Hemoglobin 8.2 g/dL (12.9-16.9); Immature Granulocytes % 3.8 % (0-4); Immature Platelets 4.1 % (1.1-6.1); Lymphocytes # 0.8 K/mcL (0.6-4.6); Lymphocytes % 16.7 %; Mean Corpuscular HGB Conc 31.5 g/dL (31.6-35.5); Mean Corpuscular Volume 91.9 fL (83.0-100.0); Mean Platelet Volume 10.6 fL (9.4-12.4); Monocytes # 0.8 K/mcL (0.0-1.3); Monocytes % 15.9 %; Neutrophils # 2.9 K/mcL (1.6-8.9); Red Blood Count 2.83 M/mcL (4.19-5.50); Red Cell Distribution Width 16.4 % (11.5-14.5); Segmented Neutrophils % 61.1 %; White Blood Count 4.7 K/mcL (4.3-11.1)
[2018-10-16 20:46] LABS: Platelet Count 71 K/mcL (140-400)
[2018-10-17] MEDS: hydrALAZINE 25 MG TABLET PO SCH ×4 (00:10→23:50)
[2018-10-17] MEDS: Insulin LISPRO 300 UNITS/3 ML VIAL SQ SCH ×5 (00:11→23:47)
[2018-10-17] MEDS: MetroNIDAZOLE 500 MG/100 ML 500 MG/100 ML BAG IVPB SCH ×4 (00:13→23:41)
[2018-10-17] MEDS: Ipratropium/Albuterol Neb 3 ML IH SCH ×6 (00:17→20:18)
[2018-10-17 03:53] LABS: Basophils % 0.5 %
[2018-10-17 03:55] LABS: Eosinophils # 0.2 K/mcL (0.0-0.6); Eosinophils % 3.9 %; Hematocrit 26.8 % (37.5-50.1); Hemoglobin 8.5 g/dL (12.9-16.9); Immature Granulocytes % 2.5 % (0-4); Immature Platelets 3.3 % (1.1-6.1); Lymphocytes # 0.8 K/mcL (0.6-4.6); Lymphocytes % 17.4 %; Mean Corpuscular HGB Conc 31.7 g/dL (31.6-35.5); Mean Corpuscular Hemoglobin 28.9 pg (28.0-33.3); Mean Corpuscular Volume 91.2 fL (83.0-100.0); Mean Platelet Volume 10.8 fL (9.4-12.4); Monocytes % 14.7 %; Neutrophils # 2.7 K/mcL (1.6-8.9); Red Blood Count 2.94 M/mcL (4.19-5.50); Red Cell Distribution Width 16.3 % (11.5-14.5); White Blood Count 4.4 K/mcL (4.3-11.1)
[2018-10-17 03:57] LABS: Monocytes # 0.7 K/mcL (0.0-1.3); Platelet Count 91 K/mcL (140-400)
[2018-10-17 04:12] LABS: Calcium 7.8 mg/dL (8.6-10.3); Magnesium 2.1 mg/dL (1.6-2.6); Phosphorous 3.2 mg/dL (2.7-4.5); Potassium 3.9 mEq/L (3.5-5.1)
[2018-10-17] MEDS: Sodium Bicarbonate 150 MEQ in D5% in Water 1,000 ML IVC SCH (04:15)
[2018-10-17] MEDS: Pantoprazole 40 MG VIAL IVP SCH (05:35)
[2018-10-17] MEDS: *HR* Heparin 5,000 UNIT/ML VIAL SQ SCH ×3 (05:35→20:43)
--- NOTE | 2018-10-17 06:49 | Pulmonology Progress Note ---
<Heron Shannon - Last Filed: 10/17/18 16:45> Date of Encounter: 10/17/18 Time of Encounter: 09:15 Assessment and Plan (1) Acute NC Current Visit: Yes Status: Acute Patient found to have significant elevation in his troponin with troponin less than upper limit of normal at [facility] and upon arrival to [place] was found to have troponin of 30.22 and repeat 30.47 Echocardiogram limited was obtained which shows EF of 25% which is a significant drop from previous in 06/19/18 which had a EF of 60-65% The patient does have a long history of cardiac disease and has undergone CABG in 2001 Patient underwent catheterization and a bare metal stent was placed in the saphenous venous graft OM1 on 10/10/18 Continuing on aspirin and Plavix SQ heparin with further monitoring of potential bleeding Dopamine for hypotension was DC'd Transfusion of PRBCs as pt can tolerate for better perfusion Pt now having episodes of bradycardia that have self resolved Cardiology following EKG showed slow afib Qualifiers: Myocardial infarction type: unspecified Involved coronary artery: unspecified coronary artery Qualified Code(s): I21.9 - Acute myocardial infarction, unspecified (2) Acute respiratory failure Current Visit: Yes Status: Acute Pt transferred from [facility] due to respiratory failure, arrived on BiPAP Was initially tolerating BiPAP but was eventually intubated due to fatigure and the need for the patient to lie down for cardiac catheterization Pt intubated at 0030 on 10/10/18 Pt was extubated 10/15 at 0850 and has been tolerating extubation well He remains fluid overloaded and diuresis has slowed secondary to renal failure Pt is at moderate risk re-intubation during this stay Tolerating BiPAP well, will continue to BiPAP prn for respiratory distress Qualifiers: Respiratory failure complication: unspecified whether with hypoxia or hypercapnia Qualified Code(s): J96.00 - Acute respiratory failure, unspecified whether with hypoxia or hypercapnia (3) Acute exacerbation of CHF (congestive heart failure) Current Visit: Yes Status: Acute Patient had acute decompensation of his heart failure likely secondary to subacute versus acute myocardial infarction EF on limited echo was 25%, of a significant decrease from May 2018 when it was 60-65% Will continue with diuresis as kidneys can tolerate On BiPAP CXR 10/14 shows slightly improving pulmonary edema Place pt on nitro drip and start scheduled hydralazine for diuresis on 10/15 with improved uop Will switch to isosorbide dinitrite and hydralazine TID as pt is now taking oral meds Continue other treatment as above Qualifiers: Heart failure type: systolic Qualified Code(s): I50.23 - Acute on chronic systolic (congestive) heart failure (4) Acute on chronic kidney failure Current Visit: Yes Status: Acute CKD stage 3 with baseline Cr roughly 1.5 Kidney function continues to decline Cr today 2.97 Improved UOP initially with lasix Lasix given three days ago without significant effect Consultation to nephrology was placed - appreciate recommendations Continue to avoid nephrotoxic agents Dr. Sanders recommended discontinuing Bicarb drip. Trip Lasix 40mg BID today Qualifiers: Acute renal failure type: unspecified Chronic kidney disease stage: stage 3 (moderate) Qualified Code(s): N17.9 - Acute kidney failure, unspecified; N18.3 - Chronic kidney disease, stage 3 (moderate) (5) Acute on chronic blood loss anemia Current Visit: Yes Status: Acute Chronic anemia at baseline of 8-9 Pt received 2 units PRBCs on 10/10/18 Hemoglobin stable after Cath, continue to monitor Received a total of 2 units on 10/13 & 10/14 to help with GILES on CKD Hgb today 8.5 today, stable (6) C. difficile diarrhea Current Visit: Yes Status: Acute Per family this started as an outpatient Will continue with IV Flagyl and vancomycin orally Rectal vanc DC'd per ID Patient is C. diff positive on lab draw but culture negative C. diff toxin negative CT abdomen/pelvis shows large bilateral effusions, cirrhotic morphology of the liver with mild splenomegaly along with ascites. There is no evidence of toxic megacolon, but there is wall thickening of the sigmoid colon Pt has not had diarrhea for since first night of visit ID following - appreciate recommendations (7) DM type 2 (diabetes mellitus, type 2) Current Visit: Yes Status: Chronic Continue home meds Continue Accu-Cheks q6H Low dose SSI Qualifiers: Diabetes mellitus buttermaker continuous churn insulin use: without [place] use Diabetes mellitus complication status: without complication Qualified Code(s): E11.9 - Type 2 diabetes mellitus without complications (8) Chronic venous hypertension w/ulcer and inflammation involv both sides Current Visit: Yes Status: Chronic ID, podiatry and wound care following, appreciate recommendations RLE with dressing C/D/I Left BKA (9) Right foot ulcer Current Visit: Yes Status: Chronic Podiatry and wound care following - appreciate recommendations Pt grew GNR from swab on 10/08/18 - Hx of Staph aureus and pseudomonas On Cefepime - vanc was discontinued due to kidney functions Qualifiers: Non-pressure ulcer stage: limited to breakdown of skin Qualified Code(s): L97.511 - Non-pressure chronic ulcer of other part of right foot limited to breakdown of skin (10) COPD (chronic obstructive pulmonary disease) Current Visit: Yes Status: Acute Continue Duonebs q4H, Symbicort and Singulair Qualifiers: COPD type: unspecified COPD Qualified Code(s): J44.9 - Chronic obstructive pulmonary disease, unspecified (11) Pneumonia Current Visit: Yes Status: Acute Sputum cultures grew normal respiratory ariel Procal significantly elevated at 53.1 Continue Cefepime and flagyl, IV Vancomycin stopped secondary to renal function ID following - appreciate recommendations Consolidation is likely pleural effusion but cannot rule out PNA at this time Qualifiers: Pneumonia type: due to unspecified organism Laterality: unspecified laterality Lung location: unspecified part of lung Qualified Code(s): J18.9 - Pneumonia, unspecified organism (12) Thrombocytopenia Current Visit: Yes Status: Acute Pt hs had slowly decreasing platelet levels Today plts 91 Continue to monitor If drop below 50 we will DC Heparin (13) DVT prophylaxis Current Visit: Yes Status: Acute SQ Heparin Subjective Principal diagnosis: CHF, AMI, C-Diff, GILES Interval history: Pt seen and examined at bedside. No acute events overnight. Continues to wear the BiPAP Objective PUL Vital signs: Last Vital Signs Temp 97.6 F 10/17/18 03:19 Pulse 78 10/17/18 06:00 Resp 25 10/17/18 06:00 BP 127/51 10/17/18 06:00 Pulse Ox 100 10/17/18 06:00 General appearance: no acute distress, alert Eyes: nonicteric ENT: oropharynx moist Neck: supple Effort: normal Auscultation: bilateral: diminished breath sounds, rales (bases) Cardiovascular: regular rate and rhythm Gastrointestinal: soft, non-tender, non-distended Integumentary: normal Extremities: pink and warm Musculoskeletal: other (left BKA ) pupils equal and round Results - Laboratory Findings CBC and BMP: 10/17/18 03:33 10/17/18 03:33 ABG ABG pH 7.39 pH Units (7.32-7.45) 10/15/18 04:24 ABG pCO2 36 mmHg (35-45) 10/15/18 04:24 ABG pO2 100 mmHg (85-104) 10/15/18 04:24 ABG O2 Saturation 98 % (95-98) 10/15/18 04:24 PT/INR, D-dimer PT 15.9 Seconds (9.4-12.1) H 10/13/18 03:40 Abnormal lab findings: Abnormal lab results WBC 3.8 K/mcL (4.3-11.1) L 10/14/18 03:56 RBC 2.94 M/mcL (4.19-5.50) L 10/17/18 03:33 Hgb 8.5 g/dL (12.9-16.9) L 10/17/18 03:33 Hct 26.8 % (37.5-50.1) L 10/17/18 03:33 MCHC 31.5 g/dL (31.6-35.5) L 10/16/18 20:28 RDW 16.3 % (11.5-14.5) H 10/17/18 03:33 Plt Count 91 K/mcL (140-400) L 10/17/18 03:33 Band Neutrophils % 70.0 % (0-4) H 10/09/18 22:18 Neutrophils # 9.6 K/mcL (1.6-8.9) H 10/10/18 04:00 Lymphocytes # 0.5 K/mcL (0.6-4.6) L 10/11/18 04:05 Platelet Estimate Slight Decrease (Normal) L 10/14/18 18:00 ESR 79 mm/hr (0-10) H 10/10/18 18:56 PT 15.9 Seconds (9.4-12.1) H 10/13/18 03:40 APTT 43.1 Seconds (26.0-36.0) H 10/13/18 03:40 Fibrinogen 465 mg/dL (169-393) H 10/10/18 17:15 Heparin Anti-Xa, Unfract 0.26 IU/mL (0.30-0.70) L 10/09/18 22:18 ABG pCO2 34 mmHg (35-45) L 10/13/18 04:36 ABG pO2 61 mmHg (85-104) L 10/14/18 05:01 ABG O2 Saturation 90 % (95-98) L 10/14/18 05:01 ABG Base Excess -3 mEq/L (-2 to 3) L 10/15/18 04:24 VBG pO2 69 mmHg (25-50) H 10/09/18 22:28 Sodium 135 mEq/L (136-145) L 10/17/18 03:33 Carbon Dioxide 19 mEq/L (23-29) L 10/17/18 03:33 BUN 41 mg/dL (8-23) H 10/17/18 03:33 Creatinine 2.97 mg/dL (0.70-1.30) H 10/17/18 03:33 Est GFR ( Amer) 26 (> 60) L 10/17/18 03:33 Est GFR (Non-Af Amer) 21 (> 60) L 10/17/18 03:33 Glucose 121 mg/dL (70-105) H 10/17/18 03:33 POC Glucose 173 mg/dL (70-99) H 10/16/18 23:44 Calcium 7.8 mg/dL (8.6-10.3) L 10/17/18 03:33 Venous Ioniz Calcium 1.09 mmol/L (1.15-1.35) L 10/15/18 03:48 AST 66 Units/L (13-39) H 10/09/18 22:18 Lactate Dehydrogenase 286 Units/L (140-271) H 10/10/18 19:23 Troponin I 31.20 ng/mL (< 0.04) H* 10/10/18 12:00 C-Reactive Protein 209 mg/L (Less than 10) H 10/10/18 19:23 B-Natriuretic Peptide 868 pg/mL (Less than 100) H 10/09/18 22:18 Serum Total Protein 5.9 g/dL (6.4-8.9) L 10/13/18 03:40 Albumin 2.0 g/dL (3.5-5.7) L 10/14/18 03:56 Globulin 3.6 g/dL (2.4-3.5) H 10/13/18 03:40 Albumin/Globulin Ratio 0.6 (1.1-2.2) L 10/13/18 03:40 Procalcitonin 53.10 ng/mL (0.00-0.15) H 10/10/18 05:00 Urine Clarity Cloudy (Clear) A 10/10/18 00:42 Urine Protein >=300 mg/dL (Neg-Trace) H 10/10/18 00:42 Urine Ketones Trace mg/dL (Negative) H 10/10/18 00:42 Urine Blood Trace (Negative) H 10/10/18 00:42 Urine Bilirubin Moderate (Negative) H 10/10/18 00:42 Urine Microscopic RBC 3-5 per hpf (0-3) H 10/10/18 00:42 Urine Microscopic WBC 5-15 per hpf (0-3) H 10/10/18 00:42 Ur Squamous Epith Cells Many per lpf (None-Few) H 10/10/18 00:42 Hyaline Casts Many per lpf (None-Few) H 10/10/18 00:42 Protein/Creatinin Ratio 1.00 mg/mg (0.00-0.20) H 10/13/18 15:30 Urine Total Protein 103 mg/dL (1-14) H 10/13/18 15:30 Nasal Screen MRSA (PCR) Positive (Negative) A 10/09/18 22:59 Stl C.diff Tox A&B Gene DETECTED (Not detect) A 10/09/18 13:59 Vancomycin Trough 23 mcg/mL (5-10) H 10/12/18 03:55 Crossmatch See Detail 10/14/18 11:05 - Clinical Findings Intake & Output: Intake & Output 10/16/18 10/16/18 10/17/18 15:59 23:59 07:59 Intake Total 170 / 460.9 120 / 460.9 1250 / 1250 Output Total 30 / 260 110 / 260 125 / 125 Balance 140 / 200.9 10 / 200.9 1125 / 1125 Weight 119.295 kg Consult Discharge Plan - Plan Referrals: NONE,PCP [Primary Care Provider] - <Chanelle Blanca - Last Filed: 10/18/18 01:43> Date of Encounter: 10/17/18 Objective PUL Vital signs: Last Vital Signs Temp 98.1 F 10/17/18 08:00 Pulse 78 10/17/18 06:00 Resp 22 10/17/18 08:27 BP 127/51 10/17/18 06:00 Pulse Ox 98 10/17/18 08:27 Results - Laboratory Findings CBC and BMP: 10/17/18 03:33 10/17/18 03:33 ABG ABG pH 7.39 pH Units (7.32-7.45) 10/15/18 04:24 ABG pCO2 36 mmHg (35-45) 10/15/18 04:24 ABG pO2 100 mmHg (85-104) 10/15/18 04:24 ABG O2 Saturation 98 % (95-98) 10/15/18 04:24 PT/INR, D-dimer PT 15.9 Seconds (9.4-12.1) H 10/13/18 03:40 Abnormal lab findings: Abnormal lab results WBC 3.8 K/mcL (4.3-11.1) L 10/14/18 03:56 RBC 2.94 M/mcL (4.19-5.50) L 10/17/18 03:33 Hgb 8.5 g/dL (12.9-16.9) L 10/17/18 03:33 Hct 26.8 % (37.5-50.1) L 10/17/18 03:33 MCHC 31.5 g/dL (31.6-35.5) L 10/16/18 20:28 RDW 16.3 % (11.5-14.5) H 10/17/18 03:33 Plt Count 91 K/mcL (140-400) L 10/17/18 03:33 Band Neutrophils % 70.0 % (0-4) H 10/09/18 22:18 Neutrophils # 9.6 K/mcL (1.6-8.9) H 10/10/18 04:00 Lymphocytes # 0.5 K/mcL (0.6-4.6) L 10/11/18 04:05 Platelet Estimate Slight Decrease (Normal) L 10/14/18 18:00 ESR 79 mm/hr (0-10) H 10/10/18 18:56 PT 15.9 Seconds (9.4-12.1) H 10/13/18 03:40 APTT 43.1 Seconds (26.0-36.0) H 10/13/18 03:40 Fibrinogen 465 mg/dL (169-393) H 10/10/18 17:15 Heparin Anti-Xa, Unfract 0.26 IU/mL (0.30-0.70) L 10/09/18 22:18 ABG pCO2 34 mmHg (35-45) L 10/13/18 04:36 ABG pO2 61 mmHg (85-104) L 10/14/18 05:01 ABG O2 Saturation 90 % (95-98) L 10/14/18 05:01 ABG Base Excess -3 mEq/L (-2 to 3) L 10/15/18 04:24 VBG pO2 69 mmHg (25-50) H 10/09/18 22:28 Sodium 135 mEq/L (136-145) L 10/17/18 03:33 Carbon Dioxide 19 mEq/L (23-29) L 10/17/18 03:33 BUN 41 mg/dL (8-23) H 10/17/18 03:33 Creatinine 2.97 mg/dL (0.70-1.30) H 10/17/18 03:33 Est GFR ( Amer) 26 (> 60) L 10/17/18 03:33 Est GFR (Non-Af Amer) 21 (> 60) L 10/17/18 03:33 Glucose 121 mg/dL (70-105) H 10/17/18 03:33 POC Glucose 173 mg/dL (70-99) H 10/16/18 23:44 Calcium 7.8 mg/dL (8.6-10.3) L 10/17/18 03:33 Venous Ioniz Calcium 1.09 mmol/L (1.15-1.35) L 10/15/18 03:48 AST 66 Units/L (13-39) H 10/09/18 22:18 Lactate Dehydrogenase 286 Units/L (140-271) H 10/10/18 19:23 Troponin I 31.20 ng/mL (< 0.04) H* 10/10/18 12:00 C-Reactive Protein 209 mg/L (Less than 10) H 10/10/18 19:23 B-Natriuretic Peptide 868 pg/mL (Less than 100) H 10/09/18 22:18 Serum Total Protein 5.9 g/dL (6.4-8.9) L 10/13/18 03:40 Albumin 2.0 g/dL (3.5-5.7) L 10/14/18 03:56 Globulin 3.6 g/dL (2.4-3.5) H 10/13/18 03:40 Albumin/Globulin Ratio 0.6 (1.1-2.2) L 10/13/18 03:40 Procalcitonin 53.10 ng/mL (0.00-0.15) H 10/10/18 05:00 Urine Clarity Cloudy (Clear) A 10/10/18 00:42 Urine Protein >=300 mg/dL (Neg-Trace) H 10/10/18 00:42 Urine Ketones Trace mg/dL (Negative) H 10/10/18 00:42 Urine Blood Trace (Negative) H 10/10/18 00:42 Urine Bilirubin Moderate (Negative) H 10/10/18 00:42 Urine Microscopic RBC 3-5 per hpf (0-3) H 10/10/18 00:42 Urine Microscopic WBC 5-15 per hpf (0-3) H 10/10/18 00:42 Ur Squamous Epith Cells Many per lpf (None-Few) H 10/10/18 00:42 Hyaline Casts Many per lpf (None-Few) H 10/10/18 00:42 Protein/Creatinin Ratio 1.00 mg/mg (0.00-0.20) H 10/13/18 15:30 Urine Total Protein 103 mg/dL (1-14) H 10/13/18 15:30 Nasal Screen MRSA (PCR) Positive (Negative) A 10/09/18 22:59 Stl C.diff Tox A&B Gene DETECTED (Not detect) A 10/09/18 13:59 Vancomycin Trough 23 mcg/mL (5-10) H 10/12/18 03:55 Crossmatch See Detail 10/14/18 11:05 - Clinical Findings Intake & Output: Intake & Output 10/16/18 10/17/18 10/17/18 23:59 07:59 15:59 Intake Total 120 / 460.9 1250 / 1250 Output Total 110 / 260 125 / 145 20 / 145 Balance 10 / 200.9 1125 / 1105 -1104 Weight 119.295 kg - Attending Attestation I examined this patient and my medical decision-making was reviewed with the Resident Physician. I agree with the documented findings, disposition and treatment plan as described except to the extent set forth below. Patient seen and examined. Labs, radiology, chart personally reviewed. 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 He becomes agitated when NIV is not on. Pulmonary: Acceptable oxygenation and ventilation on NIV, however there are multiple problems with this, especially not being able to feed him and possibly clearing his airway. He is very deconditioned and he needs to stay in ICU for now because his condition could easily deteriorate especially he remain full code. Diuresis as tolerated. Cardiovascular: relatively stable. Discussed with cardiology team and continue medical management, however he can't take ACEI because of his kidney and B- chilango because of bradycardia. Very complicated situation. GI: Nutrition per dietary and GI prophylaxis per routine.Palliative to talk to the family regarding PEG tube and feeding. Heme: DVT prophylaxis per routine ID: Continue antibiotics and plan to de-escalation. ID is following up.Treatment of C.diff. Renal; urine out put and renal function reviewed. no plan for the HD and increase diuretic for now. Endorcine: blood glucose is monitored Lines: all lines checked and no evidence of infections Skin: skin care to prevent pressure ulcers per nursing routine care Dispo:ICU Code: Full. Prognosis.Poor and family meeting today with palliative care I spent 32 min of Critical Care time with this patient. It involved decision making of high complexity to assess, manipulate, and support vital organ system failure and/or to prevent further life threatening deterioration of the patient's condition. The time involved in the performance of separately report able procedures was not counted toward critical care time.
[2018-10-17] MEDS: Cefepime HCl 1,000 MG in Water for inj. (sterile) 20 ML IVP SCH ×2 (08:23→20:29)
[2018-10-17] MEDS: Aspirin 81 MG TAB.CHEW PO SCH (08:23)
[2018-10-17] MEDS: Vancomycin Oral Soln 125 MG/2.5 ML UDC PO SCH ×4 (08:24→20:30)
[2018-10-17] MEDS: Budesonide/Formoterol 160/4.5 1 PUFF INH IH SCH ×2 (08:26→20:18)
--- NOTE | 2018-10-17 09:00 | Infectious Disease Progress No ---
ID Progress Note Date of Encounter: 10/17/18 Time of Encounter: 10:00 - Subjective Subjective: Patient is seen and examined at the bedside. He is day 3 status post extubation. Patient to continues to be lethargic, eyes closed but does open to commands, responds in YES/NO , squeezes arms on commands, but is not oriented person, place and time. He is afebrile, not leukocytotic, 94% on 4 L oxymask , patient's platelet count is gone up from 72 to 91 this morning. he is currently on day 8 of IV 500MG Flagyl, day 8 of IV 1 g cefepime, currently on day 3 of PO 125 mg Vancomycin crushed in apple sauce. Patient's Creatinine continues to spike up with a value of 2.97 today . - Objective CBC & Chem 7: 10/17/18 03:33 10/17/18 03:33 - Exam Vitals: Temp Pulse Resp BP Pulse Ox 97.6 F 78 22 127/51 98 10/17/18 03:19 10/17/18 06:00 10/17/18 08:27 10/17/18 06:00 10/17/18 08:27 - Assessment and Plan (1) Altered mental status Current Visit: Yes Status: Acute - likely multifactorial due to oliguric GILES , along with getting off of the ventilator, and discontinuation of versed. Patient also had hydrostatic pulmonary edema with a reduced EF of 25 % which is unchaged from his previous Echo. -patient opens his eyes to verbal commands but is not able to nod his head in a yes/no answer , or produce any speech. -Continuos neuro checks q4h, continue Abx for PNA, diurese when able for pleural effusion. Qualifiers: Qualified Code(s): R41.82 - Altered mental status, unspecified SNOMED Code(s): 175693759 (2) Shock Current Visit: Yes Status: Acute -Resolved , patient currently extubated and off pressors -Was Likely cardiogenic in nature -Patient was transferred from [facility] to ICU because of diarrheal episodes for the past 2 weeks accompanied by abdominal pain -Pertinent Vitals /Labs on admission: Temp: 99.9, Pulse: 97, RR: 27, WBC: 15.7, Band neutrophils 70%, Lactate : 2.1, BNP: 2898. -Pertinent Vitals /Labs now: Temp: 97.8, Pulse: 69, RR: 14, WBC: 4.1 -He also has a right leg cellulitis- no evidence of any bleeding or serosanguineous discharge -10/09/18 Chest x-ray showed bilateral mild and lower lung airspace disease and bilateral pleural effusion with concerns for pulmonary edema -10/10/18 Abdomen /Pelvic CT revealed wall thickening of the sigmoid colon likely related to lack of distention. Correlation for colitis is recommended -Currently on day 4 of IV 2g cefepime, day 3 of PO 500mg vancomycin, day 5 of IV 500 mg Flagyl PLAN -Continue PO Vancomycin but dose has reduced from 500 to 125 PO QID . If failed a swallow eval, continue vancomycin with NG tube. -Continue cefepime 2 g IV every 12 hours for a total of 10-14 days -Continue IV Flagyl 500mg q8h SNOMED Code(s): 70929560 (3) C. difficile diarrhea Current Visit: Yes Status: Acute -Patient has a history of associated diarrhea . -He was treated in the hospital in the month of June for C. difficile and was on discharged vancomycin taper. -Has been afebrile since admission, with white blood count of 15.7 at [facility] currently WBC is 4.1 -Stool C. difficile toxin A&B was detected . -And has a rectal tube in place no output. -CT abdominal pelvis did not show any evidence for toxic megacolon but there was wall thickening of the sigmoid colon PLAN: -Continue vancomycin 125mg PO QID via NG tube SNOMED Code(s): 3368327249979 (4) Cellulitis of right leg Current Visit: Yes Status: Acute -Patient has a history of cellulitis of the right leg -10/08/18 recent wound culture grew gram-negative rods, sensitivity pending - 06/21/18 would culture grew : S aureus, Pseudomonas aeruginosa - P aeruginosa: S: Cefepime, ceftazidime, ciprofloxacin, gentamicin, independent, levofloxacin, Zosyn, tobramycin - S auerus: S - daptomycin, doxycycline, gentamicin, oxacillin, rifampin, tetracycline, Zosyn, vancomycin - 06/18/18 would culture grew : Group B strep, Pseudomonas aeruginosa which were pansensitive -Patient is not afebrile at the moment , His white blood count trending down from 15.7 yesterday to 9.3 today. -Currently on day 6 of Cefepime 2g IV q 12 h for total of 10-14 days - SNOMED Code(s): 690233358 (5) Pneumonia Current Visit: Yes Status: Acute Etiology unknown Procal significantly elevated at 53.1 on admission. on physical exam he has bilateral wheezes. 10/11/18: CXR Consolidation is likely pleural efusion but cannot rule out pneumonia at this time 10/14/18: CXR Improving bibasilar atelectesis or PNA Currently on day 6 of IV 500mg Flagyl, day 6 of 2gm cefepime. will need incentive spirometer once patient is alert and oriented Qualifiers: Qualified Code(s): J18.9 - Pneumonia, unspecified organism SNOMED Code(s): 410527628 (6) NSTEMI (non-ST elevated myocardial infarction) Current Visit: Yes Status: Acute Patient found to have significant elevation in his troponin with troponin less than upper limit of normal at [facility] and upon arrival to [facility] was found to have troponin of 30.22 and repeat 30.47 * Echocardiogram limited was obtained which shows EF of 25% which is a sig nificant drop from previous in 05/30/18 which had a EF of 60-65% * The patient does have a long history of cardiac disease and has undergone CABG prior * Patient underwent catheterization overnight with Dr. Velasquez and a bare metal stent was placed in the saphenous venous graft OM1 SNOMED Code(s): 65701159 (7) Congestive heart failure Current Visit: No Status: Acute - Patient has an acute decompensation of heart failure likely due to NSTEMI -Recent echocardiogram showed an EF of 25% which was a significant drop from his EF in 05/2018 when it was 60-65% -Patient was initially started on 20 IV Lasix but since patient is preload dependent owing to his reduced EF - Currently holding off on his diuretics because of worsening GILES on CKD - Further management as per the ICU team Qualifiers: Qualified Code(s): I50.9 - Heart failure, unspecified SNOMED Code(s): 84568056 (8) CKD (chronic kidney disease) stage 3, GFR 30-59 ml/min Current Visit: Yes Status: Acute -She has a history of CK D of a stage III -Patient has had a bump in his creatinine from 1.56 on admission to 2.42 . -Avoid nephrotoxic agent and renally dose steroids. No indication for IV hydration because of pulmonary edema but will resume gnetly hydration once patient is hemodynamically stable SNOMED Code(s): 312177915 (9) Allergy to multiple antibiotics Current Visit: Yes Status: Acute Patient allergic to multiple antibiotics like Biaxin, Keflex, Levaquin, Zithromax and clindamycin SNOMED Code(s): 983436962639437 (10) DM type 2 (diabetes mellitus, type 2) Current Visit: Yes Status: Chronic Patient has a history of diabetes. Currently on low-dose sliding scale insulin Qualifiers: Qualified Code(s): E11.9 - Type 2 diabetes mellitus without complications SNOMED Code(s): 24254764 Consult Discharge Plan - Plan Referrals: NONE,PCP [Primary Care Provider] - - Attending Attestation I examined this patient and my medical decision-making was reviewed with the Resident Physician. I agree with the documented findings, disposition and treatment plan as described except to the extent set forth below. Assessment and plan: 1. shock - cardiogenic? improved. off dopamine 2. Pneumonia - likely aspiration; improved 3. C diff colitis first recurrnece - will treat for 6 weeks with tapering dose through November 20 4. lower extremities venous stasis 5. third spacing 6. Metabolic encephalopathy Recommendations: continue cefepime, continue flagyl and oral vancomycin repeat CXR for now duration of treatment depends on clinical picture monitor labs and for drug toxicity
[2018-10-17] MEDS: Furosemide 40 MG/4 ML VIAL IVP SCH ×2 (11:06→18:45)
--- NOTE | 2018-10-17 12:29 | Nephrology Progress Note ---
Date of Encounter: 10/17/18 Time of Encounter: 09:40 - Assessment and Plan (1) Acute on chronic kidney failure Current Visit: Yes Status: Acute GILES on CKD Variable baseline renal function Has had dialysis in the past for acute kidney injury Multifactorial in nature due to contrast exposure Renal function continues to worsen At this time we will discontinue bicarbonate drip Start Lasix 40 twice a day for 2 doses If there is a cardiorenal component to this if we can decrease his edema his kidney function may improve. If his renal function does not improve we will consider temporary HD tomorrow Continue to try to keep mean blood pressure above 65 Continue renally protective strategies, avoid nephrotoxic agents, renally dose medications as appropriate Qualifiers: Acute renal failure type: unspecified Chronic kidney disease stage: stage 3 (moderate) Qualified Code(s): N17.9 - Acute kidney failure, unspecified; N18.3 - Chronic kidney disease, stage 3 (moderate) (2) Acute on chronic blood loss anemia Current Visit: Yes Status: Acute (3) Acute exacerbation of CHF (congestive heart failure) Current Visit: Yes Status: Acute as per primary Qualifiers: Heart failure type: systolic Qualified Code(s): I50.23 - Acute on chronic systolic (congestive) heart failure (4) Acute VA Current Visit: Yes Status: Acute as per primary Qualifiers: Myocardial infarction type: unspecified Involved coronary artery: unspecified coronary artery Qualified Code(s): I21.9 - Acute myocardial infarction, unspecified (5) Septic shock Current Visit: Yes Status: Acute (6) DM type 2 (diabetes mellitus, type 2) Current Visit: Yes Status: Chronic as per primary Qualifiers: 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 Chow is a 63 yo male with GILES, Acute VA, CHF, Anemia, and Hypertension. He was examined at bedside. He had just been taken off BiPAP but was tolerating that he could not breathe. His saturations were good at that time that he was very air hungry. Patient was then able to answer questions directly. Today his sodium is 135 increased from 134, potassium 3.9 decreased from 4.4, chloride 105 decreased from 106. BUN of 41 increasing 38, creatinine 2.97 in creased from 2.83, GFR 21 decreased from 23. Objective - Vital Signs Vital signs: Vital Signs Temp Pulse Resp BP Pulse Ox 10/17/18 11:30 19 100 10/17/18 11:00 83 23 116/53 100 10/17/18 10:00 67 24 119/59 99 10/17/18 09:00 69 23 117/44 97 10/17/18 08:27 22 98 10/17/18 08:00 98.1 F 64 19 128/48 100 10/17/18 07:15 60 19 117/50 100 10/17/18 06:00 78 25 127/51 100 10/17/18 05:00 66 27 120/59 100 10/17/18 04:15 54 10/17/18 04:00 54 20 127/50 100 10/17/18 03:59 27 107/54 100 10/17/18 03:19 97.6 F 10/17/18 03:00 54 23 107/54 100 10/17/18 02:00 59 33 125/48 100 10/17/18 01:00 59 22 138/57 100 10/17/18 00:17 22 124/48 100 10/17/18 00:15 52 10/17/18 00:11 96.6 F L 10/17/18 00:00 52 29 124/48 100 10/16/18 23:00 54 24 122/49 100 10/16/18 22:00 52 26 103/58 94 10/16/18 21:00 49 16 95/54 100 10/16/18 20:59 22 113/91 100 10/16/18 20:15 45 10/16/18 20:00 45 18 113/91 99 10/16/18 19:46 93.5 F L 10/16/18 19:00 47 16 110/90 91 10/16/18 18:00 56 22 124/59 95 10/16/18 17:00 55 21 117/71 95 10/16/18 16:00 52 19 140/77 96 10/16/18 15:47 21 122/77 95 10/16/18 15:00 52 22 122/77 96 10/16/18 14:00 55 23 129/68 95 10/16/18 13:00 54 22 93/70 98 10/16/18 12:35 97.4 F L Intake and Output 10/16/18 10/17/18 10/17/18 23:59 07:59 15:59 Intake Total 120 / 460.9 1250 / 1250 Output Total 110 / 260 125 / 145 20 / 145 Balance 10 / 200.9 1125 / 1105 -20 / 1105 Intake: IV Fluids 120 / 460.9 1250 / 1250 Nitroglycerin Premix 25 MG/250 0 / 0 ML 25 mg In 250 ml @ 5 MCG/MIN 3 mls/hr IVC .Q24H SHERIDAN Rx#: [id number] Sodium Bicarbonate 150 MEQ In 1150 / 1150 Dextrose 5% 1,000 ML @ 100 mls/ hr IVC .[id number] SHERIDAN Rx#: [id number] Maxipime 1,000 MG In Water for 20 / 40 inj. (sterile) 20 ML @ 300 mls/ hr IVP Q12H SHERIDAN Rx#:[id number] Flagyl Premix 500 MG/100 ML 500 100 / 300 100 / 100 mg In 100 ml @ 100 mls/hr IVPB Q8HR SHERIDAN Rx#:[id number] Output: Catheter 110 / 260 125 / 145 20 / 145 Other: Weight 119.295 kg Blood Glucose* 134 Patient Weight 10/17/18 23:59 Weight 119.295 kg - General Appearance General appearance: Present: well-developed, well-nourished, moderate distress EENT: Present: mucous membranes dry Neck: Present: JVD, supple Respiratory: Present: wheezing, rales Cardiology: Present: no murmurs, no rub, no gallops, edema (4+ pitting to the thigh, bilateral upper extremity edema) Gastrointestinal: Present: normoactive bowel sounds, no tenderness, no guarding Additional Comments: Lower pannus edema Integumentary: Present: warm and dry - Lab 10/17/18 03:33 10/17/18 03:33 Most recent lab results 10/17/18 03:33 Calcium 7.8 L Phosphorus 3.2 Magnesium 2.1 Consult Discharge Plan - Plan Referrals: NONE,PCP [Primary Care Provider] -
--- NOTE | 2018-10-17 13:26 | Palliative Progress Note ---
Date of Encounter: 10/17/18 Time of Encounter: 11:00 - Assessment and plan (1) Dyspnea Current Visit: No Status: Acute Assessment and plan: Currently tolerating Bipap. Nephrology to give Lasix today. Bipap at 40% FiO2 HOB up Supplemental O2 Duonebs Symbicort Qualifiers: Dyspnea type: unspecified Qualified Code(s): R06.00 - Dyspnea, unspecified (2) Goals of care, counseling/discussion Current Visit: Yes Status: Acute Assessment and plan: I spent a total of 40 minutes; 30 minutes were comprised of counseling and information giving around the diagnosis and prognosis with and daughter. I explained pathophysiology of EF changed from 65% to 25%, I explained that kasey ent has Acute CT, AMS, Resolved Shock, pneumonia, C-Diff, Cellulitis, CHF and CKD. I explained that patient may need dialysis based on renal labs today. Explained that lasix will be given today per Nephrology and that patient is critical given these mutiple issues. He is stable but may require dialysis. and daughter both emotional and requiring support throughout discussion. Explained that patient will have MBS to assess ability for intake. In summary, we agreed that if Dialysis was warranted that they support starting it. I explained that the patient continues to require Bipap and the goals are for the patient to be transitioned off of it if possible. Current goal is for patient to continue aggressive medical management. verbalized that patient would not want to live in a prolonged vegetative state but is "OK" with short term intubation. Patient remains FULL CODE but family verbalized understandings of patients current status. (3) Altered mental status Current Visit: Yes Status: Acute Assessment and plan: Multifactorial given patients multiple issues. Patient more alert today. Scheduled for MBS and able to follow commands. Aware of and daughter at bedside and was able to engage. Qualifiers: Altered mental status type: unspecified Qualified Code(s): R41.82 - Altered mental status, unspecified (4) Palliative care encounter Current Visit: Yes Status: Acute (5) Acute CT Current Visit: Yes Status: Acute Assessment and plan: Cardiology following. Qualifiers: Myocardial infarction type: unspecified Involved coronary artery: unspecified coronary artery Qualified Code(s): I21.9 - Acute myocardial infarction, unspecified - Time Spent With Patient Total time spent is greater than 50% in coordination of care (as documented) at patient's floor/unit and/or counseling patient: Greater than 35 minutes - Subjective Interval history: Patient more alert today. Pending MBS study scheduled for today. Remains on Bipap for now. Conducted family meeting with and daughter. - Constitutional Vitals: Abnormal lab results WBC 3.8 K/mcL (4.3-11.1) L 10/14/18 03:56 RBC 2.94 M/mcL (4.19-5.50) L 10/17/18 03:33 Hgb 8.5 g/dL (12.9-16.9) L 10/17/18 03:33 Hct 26.8 % (37.5-50.1) L 10/17/18 03:33 MCHC 31.5 g/dL (31.6-35.5) L 10/16/18 20:28 RDW 16.3 % (11.5-14.5) H 10/17/18 03:33 Plt Count 91 K/mcL (140-400) L 10/17/18 03:33 Band Neutrophils % 70.0 % (0-4) H 10/09/18 22:18 Neutrophils # 9.6 K/mcL (1.6-8.9) H 10/10/18 04:00 Lymphocytes # 0.5 K/mcL (0.6-4.6) L 10/11/18 04:05 Platelet Estimate Slight Decrease (Normal) L 10/14/18 18:00 ESR 79 mm/hr (0-10) H 10/10/18 18:56 PT 15.9 Seconds (9.4-12.1) H 10/13/18 03:40 APTT 43.1 Seconds (26.0-36.0) H 10/13/18 03:40 Fibrinogen 465 mg/dL (169-393) H 10/10/18 17:15 Heparin Anti-Xa, Unfract 0.26 IU/mL (0.30-0.70) L 10/09/18 22:18 ABG pCO2 34 mmHg (35-45) L 10/13/18 04:36 ABG pO2 61 mmHg (85-104) L 10/14/18 05:01 ABG O2 Saturation 90 % (95-98) L 10/14/18 05:01 ABG Base Excess -3 mEq/L (-2 to 3) L 10/15/18 04:24 VBG pO2 69 mmHg (25-50) H 10/09/18 22:28 Sodium 135 mEq/L (136-145) L 10/17/18 03:33 Carbon Dioxide 19 mEq/L (23-29) L 10/17/18 03:33 BUN 41 mg/dL (8-23) H 10/17/18 03:33 Creatinine 2.97 mg/dL (0.70-1.30) H 10/17/18 03:33 Est GFR ( Amer) 26 (> 60) L 10/17/18 03:33 Est GFR (Non-Af Amer) 21 (> 60) L 10/17/18 03:33 Glucose 121 mg/dL (70-105) H 10/17/18 03:33 POC Glucose 173 mg/dL (70-99) H 10/16/18 23:44 Calcium 7.8 mg/dL (8.6-10.3) L 10/17/18 03:33 Venous Ioniz Calcium 1.09 mmol/L (1.15-1.35) L 10/15/18 03:48 AST 66 Units/L (13-39) H 10/09/18 22:18 Lactate Dehydrogenase 286 Units/L (140-271) H 10/10/18 19:23 Troponin I 31.20 ng/mL (< 0.04) H* 10/10/18 12:00 C-Reactive Protein 209 mg/L (Less than 10) H 10/10/18 19:23 B-Natriuretic Peptide 868 pg/mL (Less than 100) H 10/09/18 22:18 Serum Total Protein 5.9 g/dL (6.4-8.9) L 10/13/18 03:40 Albumin 2.0 g/dL (3.5-5.7) L 10/14/18 03:56 Globulin 3.6 g/dL (2.4-3.5) H 10/13/18 03:40 Albumin/Globulin Ratio 0.6 (1.1-2.2) L 10/13/18 03:40 Procalcitonin 53.10 ng/mL (0.00-0.15) H 10/10/18 05:00 Urine Clarity Cloudy (Clear) A 10/10/18 00:42 Urine Protein >=300 mg/dL (Neg-Trace) H 10/10/18 00:42 Urine Ketones Trace mg/dL (Negative) H 10/10/18 00:42 Urine Blood Trace (Negative) H 10/10/18 00:42 Urine Bilirubin Moderate (Negative) H 10/10/18 00:42 Urine Microscopic RBC 3-5 per hpf (0-3) H 10/10/18 00:42 Urine Microscopic WBC 5-15 per hpf (0-3) H 10/10/18 00:42 Ur Squamous Epith Cells Many per lpf (None-Few) H 10/10/18 00:42 Hyaline Casts Many per lpf (None-Few) H 10/10/18 00:42 Protein/Creatinin Ratio 1.00 mg/mg (0.00-0.20) H 10/13/18 15:30 Urine Total Protein 103 mg/dL (1-14) H 10/13/18 15:30 Nasal Screen MRSA (PCR) Positive (Negative) A 10/09/18 22:59 Stl C.diff Tox A&B Gene DETECTED (Not detect) A 10/09/18 13:59 Vancomycin Trough 23 mcg/mL (5-10) H 10/12/18 03:55 Crossmatch See Detail 10/14/18 11:05 - Head Head exam: Present: atraumatic, normal inspection - Eye Eye exam: Present: PERRL - ENT ENT exam: Present: mucous membranes moist - Neck Neck exam: Present: tenderness - Respiratory Respiratory exam: Present: decreased breath sounds, rales Additional comments: On Bipap at present - Expanded Respiratory Exam Location: decreased breath sounds: Left, Right, Lower, rales: Left, Right, Upper (few scattered) - Cardiovascular Cardiovascular exam: Present: irregular rhythm, +S1, +S2 - Expanded Cardiovascular Exam Peripheral pulses: 1+: Radial (L), Radial (R), Femoral (L) PM, Femoral (R) PM, Posterior Tibialis (R), Dorsalis Pedis (R) PM, 2+: Carotid (L) PM, Carotid (R) PM - GI/Abdominal GI/Abdominal exam: Present: diminished bowel sounds, soft Additional comments: REctal tube in place. No stool. - Rectal Rectal exam: Present: deferred - exam: Present: normal inspection Additional comments: Vázquez cath intact - Extremities Exam Extremities exam: Present: tenderness Additional comments: Left BKA, Right foot dressing - Neurological Exam Neurological exam: Present: alert - Psychiatric Psychiatric exam: Present: flat affect - Skin Skin exam: Present: pallor (Dressing CDI to right foot), warm Palliative Quality Palliative Quality: Screen for Code Status: Yes, Screen for Goals of Care: Yes, Screen for Pain: Yes, Screen for Nausea/Vomitting: Yes Code Status: 10/09/18 20:50 CODE [Resuscitation Status: Active] [RES] Routine Comment: Resuscitation Status: Full Code - Labs CBC & Chem 7: 10/17/18 03:33 10/17/18 03:33 Labs: Laboratory Results - last 24 hr 10/16/18 10/16/18 10/16/18 05:16 12:21 19:46 WBC RBC Hgb Hct MCV MCH MCHC RDW Plt Count MPV Immature Gran % Seg Neutrophils % Lymphocytes % Monocytes % Eosinophils % Basophils % Neutrophils # Lymphocytes # Monocytes # Eosinophils # Basophils # Immature Plt Fraction Sodium Potassium Chloride Carbon Dioxide BUN Creatinine Est GFR ( Amer) Est GFR (Non-Af Amer) BUN/Creatinine Ratio Glucose POC Glucose 124 H 120 H Calculated Osmolality Calcium Phosphorus Magnesium Random Vancomycin Specimen Rejected Clotted 10/16/18 10/16/18 10/17/18 20:28 23:44 03:33 WBC 4.7 4.4 RBC 2.83 L 2.94 L Hgb 8.2 L 8.5 L Hct 26.0 L 26.8 L MCV 91.9 91.2 MCH 29.0 28.9 MCHC 31.5 L 31.7 RDW 16.4 H 16.3 H Plt Count 71 L 91 L MPV 10.6 10.8 Immature Gran % 3.8 2.5 Seg Neutrophils % 61.1 61.0 Lymphocytes % 16.7 17.4 Monocytes % 15.9 14.7 Eosinophils % 2.1 3.9 Basophils % 0.4 0.5 Neutrophils # 2.9 2.7 Lymphocytes # 0.8 0.8 Monocytes # 0.8 0.7 Eosinophils # 0.1 0.2 Basophils # 0.0 0.0 Immature Plt Fraction 4.1 3.3 Sodium Potassium Chloride Carbon Dioxide BUN Creatinine Est GFR ( Amer) Est GFR (Non-Af Amer) BUN/Creatinine Ratio Glucose POC Glucose 173 H Calculated Osmolality Calcium Phosphorus Magnesium Random Vancomycin Specimen Rejected 10/17/18 10/17/18 03:33 03:33 WBC RBC Hgb Hct MCV MCH MCHC RDW Plt Count MPV Immature Gran % Seg Neutrophils % Lymphocytes % Monocytes % Eosinophils % Basophils % Neutrophils # Lymphocytes # Monocytes # Eosinophils # Basophils # Immature Plt Fraction Sodium 135 L Potassium 3.9 Chloride 105 Carbon Dioxide 19 L BUN 41 H Creatinine 2.97 H Est GFR ( Amer) 26 L Est GFR (Non-Af Amer) 21 L BUN/Creatinine Ratio 14 Glucose 121 H POC Glucose Calculated Osmolality 291 Calcium 7.8 L Phosphorus 3.2 Magnesium 2.1 Random Vancomycin 13 Specimen Rejected - ABG Interpretation ABG results: ABG ABG pH 7.39 pH Units (7.32-7.45) 10/15/18 04:24 ABG pCO2 36 mmHg (35-45) 10/15/18 04:24 ABG pO2 100 mmHg (85-104) 10/15/18 04:24 ABG O2 Saturation 98 % (95-98) 10/15/18 04:24 PT/INR, D-dimer PT 15.9 Seconds (9.4-12.1) H 10/13/18 03:40 Consult Discharge Plan - Plan Referrals: NONE,PCP [Primary Care Provider] -
--- NOTE | 2018-10-17 14:52 | Cardiology Progress Note ---
Date of Encounter: 10/17/18 Time of Encounter: 14:40 Assessment and Plan (1) NSTEMI (non-ST elevated myocardial infarction) Current Visit: Yes Status: Acute NSTEMI Troponin flat at 30; acute decompensation upon arrival from [facility] which prompted urgent C. s/p PCI of SVG to OM; recommend uninterrupted DAPT (asa + plavix) to avoid stent thrombosis. Discussed with patient, , and daughter. Unable to tolerate BB due to hypotension, allergy to statin. Cardiac rehab if able. Discussed cardiac progress and inability to start multiple recommended meds with family. Palliative care evaluated today. Family voiced understanding and are hopeful for a full recovery. No further inpt recommendations from Cardiology, will continue to peripherally follow. (2) Wenckebach second degree AV block Current Visit: No Status: Acute Intermittent Mobitz type I- Pt noted to have mobitz type I on telemetry. EKG not clear due to low voltage. EKG history review shows clear history of mobitz type I in 2017. ICU telemetry reviewed. Appears avg HR is 6o or above. Min HR 36 bpm at 0803 am. Intermittent mobitz type I seen. No other block seen. No pauses. Low HR appear to be nocturnal mostly. Patient denies symptoms. Continue to monitor during hospital stay. Recommend 2 week holter monitor at discharge and out-pt f/u. Seen by EP during stay. No indication for PPM at this time. (3) Paroxysmal atrial fibrillation Current Visit: Yes Status: Acute H/o PAF on eliquis. HR controlled. Currently mobitz type I. Eliquis held during stay due to acute anemia. Restart if felt to be safe from anemia standpoint. Pt on asa and plavix for recent stent. (4) Acute exacerbation of CHF (congestive heart failure) Current Visit: Yes Status: Acute Known hx of HFpEF; presented with acute HFrEF, EF 25%, suspect multifactorial in etiology. s/p PCI of SVG-OM. MANCERA-LAD patent. Initial symptoms at [facility] abdominal pain, diarrhea x2 weeks, and low grade temp, SOB. Weaned of IV pressors. No bb due to bradycardia, AV block. No ACeI due to renal function. Significant volume overload on exam, will defer diuresis to Nephrology given worsening renal function. Strict I&Os, daily weights, Na/fluid restricted diet. Qualifiers: Heart failure type: systolic Qualified Code(s): I50.23 - Acute on chronic systolic (congestive) heart failure (5) Acute on chronic kidney failure Current Visit: Yes Status: Acute GILES on CKD. SCr continues to worsen. Nephrology following. Discussing possible dialysis. Qualifiers: Acute renal failure type: unspecified Chronic kidney disease stage: stage 3 (moderate) Qualified Code(s): N17.9 - Acute kidney failure, unspecified; N18.3 - Chronic kidney disease, stage 3 (moderate) Discussion w patient/family: The assessment and plan as outlined above was discussed with the patient and/or family members who expressed understanding and agreement. All questions were answered. Thank you for involving us in the care of your patient. Please call with any questions. Subjective Principal diagnosis: CHF, AMI, C-Diff, GILES Interval history: Mr. Sanford is more alert and talking better today. Family at bedside. Increased BLE edema. Objective Vital Signs, Last 4 Hours Temp Pulse Resp BP Pulse Ox 10/17/18 12:00 68 23 121/52 100 10/17/18 11:35 98.7 F 10/17/18 11:30 19 100 10/17/18 11:00 83 23 116/53 100 General: Conversant HEENT: Atraumatic, Normocephaly, Other (mucous membranes dry) Cardiac: Other (Irregular) Lungs: Normal Breath Sounds, No Wheeze, Rales, Rhonchi Neuro: Alert and responsive, No focal deficits noted Abdomen: Soft, Non-Tender Skin: Other (RLE with redness and scaling) Musculoskeletal: No Chest Wall Tenderness Extremities: Other (3+ pitting edema with seeping) Results 10/17/18 03:33 10/17/18 03:33 Lab Results 10/16/18 10/17/18 10/17/18 20:28 03:33 03:33 WBC 4.7 4.4 Hgb 8.2 L 8.5 L Hct 26.0 L 26.8 L Plt Count 71 L 91 L Sodium 135 L Potassium 3.9 Chloride 105 Carbon Dioxide 19 L BUN 41 H Creatinine 2.97 H Glucose 121 H Calcium 7.8 L Magnesium 2.1 - Imaging and Cardiology Echo: report reviewed Cardiac cath: report reviewed - EKG Interpretation EKG results cardiology: personally reviewed Consult Discharge Plan - Plan Referrals: NONE,PCP [Primary Care Provider] -
[2018-10-17] MEDS: *HR* LORazepam 2 MG/ML VIAL IVP PRN ×2 (20:30→23:52)
[2018-10-18] MEDS: Ipratropium/Albuterol Neb 3 ML IH SCH ×6 (00:41→19:59)
[2018-10-18] MEDS: hydrALAZINE 25 MG TABLET PO SCH ×4 (01:17→23:26)
[2018-10-18 04:23] LABS: Hemoglobin 8.1 g/dL (12.9-16.9); Red Cell Distribution Width 16.3 % (11.5-14.5)
[2018-10-18 04:24] LABS: Basophils % 0.5 %; Eosinophils # 0.2 K/mcL (0.0-0.6); Eosinophils % 5.1 %; Hematocrit 25.8 % (37.5-50.1); Immature Granulocytes % 2.1 % (0-4); Immature Platelets 3.4 % (1.1-6.1); Lymphocytes # 0.9 K/mcL (0.6-4.6); Mean Corpuscular HGB Conc 31.4 g/dL (31.6-35.5); Mean Corpuscular Hemoglobin 28.1 pg (28.0-33.3); Mean Corpuscular Volume 89.6 fL (83.0-100.0); Monocytes # 0.6 K/mcL (0.0-1.3); Monocytes % 14.9 %; Nucleated Red Blood Cells 0.5 /100 WBC (0); Red Blood Count 2.88 M/mcL (4.19-5.50); Segmented Neutrophils % 53.4 %; White Blood Count 3.8 K/mcL (4.3-11.1)
[2018-10-18 04:27] LABS: Platelet Count 88 K/mcL (140-400)
[2018-10-18 04:34] LABS: VBG Ionized Calcium 1.11 mmol/L (1.15-1.35)
[2018-10-18 04:40] LABS: Calcium 7.8 mg/dL (8.6-10.3); Magnesium 2.1 mg/dL (1.6-2.6); Potassium 3.9 mEq/L (3.5-5.1)
[2018-10-18] MEDS: Pantoprazole 40 MG VIAL IVP SCH (05:28)
[2018-10-18] MEDS: *HR* Heparin 5,000 UNIT/ML VIAL SQ SCH ×3 (05:30→21:21)
[2018-10-18] MEDS: Insulin LISPRO 300 UNITS/3 ML VIAL SQ SCH ×4 (05:35→23:38)
--- NOTE | 2018-10-18 06:53 | Pulmonology Progress Note ---
<KrystalJay W - Last Filed: 10/18/18 08:29> Date of Encounter: 10/18/18 Objective PUL Vital signs: Last Vital Signs Temp 98.4 F 10/18/18 07:45 Pulse 73 10/18/18 08:00 Resp 17 10/18/18 08:13 BP 115/56 10/18/18 08:13 Pulse Ox 100 10/18/18 08:13 Results - Laboratory Findings CBC and BMP: 10/18/18 04:00 10/18/18 04:00 ABG ABG pH 7.39 pH Units (7.32-7.45) 10/15/18 04:24 ABG pCO2 36 mmHg (35-45) 10/15/18 04:24 ABG pO2 100 mmHg (85-104) 10/15/18 04:24 ABG O2 Saturation 98 % (95-98) 10/15/18 04:24 PT/INR, D-dimer PT 15.9 Seconds (9.4-12.1) H 10/13/18 03:40 Abnormal lab findings: Abnormal lab results WBC 3.8 K/mcL (4.3-11.1) L 10/18/18 04:00 RBC 2.88 M/mcL (4.19-5.50) L 10/18/18 04:00 Hgb 8.1 g/dL (12.9-16.9) L 10/18/18 04:00 Hct 25.8 % (37.5-50.1) L 10/18/18 04:00 MCHC 31.4 g/dL (31.6-35.5) L 10/18/18 04:00 RDW 16.3 % (11.5-14.5) H 10/18/18 04:00 Plt Count 88 K/mcL (140-400) L 10/18/18 04:00 Band Neutrophils % 70.0 % (0-4) H 10/09/18 22:18 Neutrophils # 9.6 K/mcL (1.6-8.9) H 10/10/18 04:00 Lymphocytes # 0.5 K/mcL (0.6-4.6) L 10/11/18 04:05 Nucleated RBCs/100 WBC 0.5 /100 WBC (0) H 10/18/18 04:00 Platelet Estimate Slight Decrease (Normal) L 10/14/18 18:00 ESR 79 mm/hr (0-10) H 10/10/18 18:56 PT 15.9 Seconds (9.4-12.1) H 10/13/18 03:40 APTT 43.1 Seconds (26.0-36.0) H 10/13/18 03:40 Fibrinogen 465 mg/dL (169-393) H 10/10/18 17:15 Heparin Anti-Xa, Unfract 0.26 IU/mL (0.30-0.70) L 10/09/18 22:18 ABG pCO2 34 mmHg (35-45) L 10/13/18 04:36 ABG pO2 61 mmHg (85-104) L 10/14/18 05:01 ABG O2 Saturation 90 % (95-98) L 10/14/18 05:01 ABG Base Excess -3 mEq/L (-2 to 3) L 10/15/18 04:24 VBG pO2 69 mmHg (25-50) H 10/09/18 22:28 Sodium 135 mEq/L (136-145) L 10/17/18 03:33 Carbon Dioxide 22 mEq/L (23-29) L 10/18/18 04:00 BUN 41 mg/dL (8-23) H 10/18/18 04:00 Creatinine 2.85 mg/dL (0.70-1.30) H 10/18/18 04:00 Est GFR ( Amer) 27 (> 60) L 10/18/18 04:00 Est GFR (Non-Af Amer) 22 (> 60) L 10/18/18 04:00 Glucose 120 mg/dL (70-105) H 10/18/18 04:00 POC Glucose 168 mg/dL (70-99) H 10/17/18 23:47 Calcium 7.8 mg/dL (8.6-10.3) L 10/18/18 04:00 Venous Ioniz Calcium 1.11 mmol/L (1.15-1.35) L 10/18/18 04:29 AST 66 Units/L (13-39) H 10/09/18 22:18 Lactate Dehydrogenase 286 Units/L (140-271) H 10/10/18 19:23 Troponin I 31.20 ng/mL (< 0.04) H* 10/10/18 12:00 C-Reactive Protein 209 mg/L (Less than 10) H 10/10/18 19:23 B-Natriuretic Peptide 868 pg/mL (Less than 100) H 10/09/18 22:18 Serum Total Protein 5.9 g/dL (6.4-8.9) L 10/13/18 03:40 Albumin 2.0 g/dL (3.5-5.7) L 10/14/18 03:56 Globulin 3.6 g/dL (2.4-3.5) H 10/13/18 03:40 Albumin/Globulin Ratio 0.6 (1.1-2.2) L 10/13/18 03:40 Procalcitonin 53.10 ng/mL (0.00-0.15) H 10/10/18 05:00 Urine Clarity Cloudy (Clear) A 10/10/18 00:42 Urine Protein >=300 mg/dL (Neg-Trace) H 10/10/18 00:42 Urine Ketones Trace mg/dL (Negative) H 10/10/18 00:42 Urine Blood Trace (Negative) H 10/10/18 00:42 Urine Bilirubin Moderate (Negative) H 10/10/18 00:42 Urine Microscopic RBC 3-5 per hpf (0-3) H 10/10/18 00:42 Urine Microscopic WBC 5-15 per hpf (0-3) H 10/10/18 00:42 Ur Squamous Epith Cells Many per lpf (None-Few) H 10/10/18 00:42 Hyaline Casts Many per lpf (None-Few) H 10/10/18 00:42 Protein/Creatinin Ratio 1.00 mg/mg (0.00-0.20) H 10/13/18 15:30 Urine Total Protein 103 mg/dL (1-14) H 10/13/18 15:30 Nasal Screen MRSA (PCR) Positive (Negative) A 10/09/18 22:59 Stl C.diff Tox A&B Gene DETECTED (Not detect) A 10/09/18 13:59 Vancomycin Trough 23 mcg/mL (5-10) H 10/12/18 03:55 Crossmatch See Detail 10/14/18 11:05 - Clinical Findings Intake & Output: Intake & Output 10/17/18 10/18/18 10/18/18 23:59 07:59 15:59 Intake Total 360 / 2230 300 / 400 100 / 400 Output Total 100 / 370 250 / 250 Balance 260 / 1860 50 / 150 100 / 150 Weight 119.1 kg Consult Discharge Plan - Plan Referrals: NONE,PCP [Primary Care Provider] - - Attending Attestation I examined this patient and my medical decision-making was reviewed with the Resident Physician. I agree with the documented findings, disposition and treatment plan as described except to the extent set forth below. We independent ly had [id number] contact with the patient I spent 34min of Critical Care time with this patient. It involved decision making of high complexity to assess, manipulate, and support vital organ system failure and/or to prevent further life threatening deterioration of the patient's condition. The time involved in the performance of separately reportable procedures was not counted toward critical care time. Patient seen and examined at bedside Labs, radiology, chart personally reviewed. Management was reviewed during multidisciplinary critical care rounds. SAMPLE TAILOR: The patient is confused today he has a metabolic encephalopathy from renal failure complicated by hypoxia.We will focus on anglican of sleep-wake cycle. avoid sensory deprivation, and avoid SAMPLE TAILOR depressant medications as able. Pulm: Acute hypoxic hypercapnic respiratory failure secondary to CHF possibly complicated by pneumonia he is requiring noninvasive ventilation continuously. He will benefit from aggressive diuresis as tolerated by kidney function Cards: Compensated systolic heart failure in the context of non-STEMI. He is on dual antiplatelet therapy for placed bare metal stent and we will optimize his heart failure regimen today appreciate cardiology recommendations may need referral to her tertiary Center for heart failure management GI: He has C. difficile colitis but stool output has to decreased markedly okay to remove rectal fecal collection system Nutrition: We will advance his diet as tolerated he has high aspiration risk and will need thickened diet Renal: Acute on chronic heart failure likely secondary to cardiorenal syndrome is also had multiple insults including hypotension and recent contrast administration. Appreciate nephrology recommendations we will more aggressively diureses today his creatinine appears to improved with the diuretic will also try to concentrate/eliminate all exogenous fluid sources UOP Monitored, Cont to Trend sCr and monitor Electrolytes. ID: Patient infectious disease recommendations for the treatment of pneumonia and C. difficile colitis Heme/Onc: Continue DVT prophylaxis and dual antiplatelet therapy his H&H is stable Endo: Glucose Monitored Integ/MSK: Skin Care per routine ICU Nursing Protocol to prevent ulcers. Lines: All lines examined without evidence of infection : Dispo: Continue to monitor in the ICU for critical illness CODE: Remains full code prognosis guarded <Fany Dominguez R - Last Filed: 10/18/18 10:24> Date of Encounter: 10/18/18 Time of Encounter: 06:53 Assessment and Plan (1) NSTEMI (non-ST elevated myocardial infarction) Current Visit: Yes Status: Acute Patient found to have significant elevation in his troponin with troponin less than upper limit of normal at [facility] and upon arrival to [place] was found to have troponin of 30.22 and repeat 30.47 Echocardiogram limited was obtained which shows EF of 25% which is a significant drop from previous in 06/19/18 which had a EF of 60-65% The patient does have a long history of cardiac disease and has undergone CABG in 2001 Patient underwent catheterization and a bare metal stent was placed in the sa phenous venous graft OM1 on 10/10/18 Continuing on aspirin and Plavix SQ heparin with further monitoring of potential bleeding Dopamine for hypotension was DC'd Transfusion of PRBCs as pt can tolerate for better perfusion Pt now having episodes of bradycardia that have self resolved Reconsulting cardio for their input They state he may be in a mobitz 1 heart block and request an EKG EKG showed slow afib Cardio will continue following (2) Acute respiratory failure Current Visit: Yes Status: Acute Pt transferred from [facility] due to respiratory failure, arrived on BiPAP Was initially tolerating BiPAP but was eventually intubated due to fatigure and the need for the patient to lie down for cardiac catheterization Pt intubated at 0030 on 10/10/18 Pt was extubated 10/15 at 0850 and has been tolerating extubation well He remains fluid overloaded and diuresis has slowed secondary to renal failure Pt is at moderate risk re-intubation during this stay Tolerated BiPAP overnight, will continue to BiPAP prn for respiratory distress Qualifiers: Respiratory failure complication: unspecified whether with hypoxia or hypercapnia Qualified Code(s): J96.00 - Acute respiratory failure, unspecified whether with hypoxia or hypercapnia (3) Acute decompensated heart failure Current Visit: Yes Status: Acute Patient had acute decompensation of his heart failure likely secondary to subacute versus acute myocardial infarction EF on limited echo was 25%, of a significant decrease from May 2018 when it was 60-65% Will continue with diuresis as kidneys can tolerate On BiPAP CXR 10/14 shows slightly improving pulmonary edema Place pt on nitro drip and start scheduled hydralazine for diuresis on 10/15 with improved uop Will switch to isosorbide dinitrite and hydralazine TID as pt is now taking oral meds Switch Lasix BID to 1mg Bumex BID with potential to add metolazone if uop is not significantly increased Continue other treatment as above (4) Acute on chronic kidney failure Current Visit: Yes Status: Acute CKD stage 3 with baseline Cre appx 1.5 Kidney function continues to decline Cre today 2.85 Improved urinary output intially with lasix Lasix given without significant effect Consultation to nephrology was placed - appreciate recommendations Continue to avoid nephrotoxic agents Pt given Lasix 40mg BID yesterday without significant increase in uop Switch to 1mg Bumex BID today to see if this improves uop Qualifiers: Acute renal failure type: unspecified Chronic kidney disease stage: stage 3 (moderate) Qualified Code(s): N17.9 - Acute kidney failure, unspecified; N18.3 - Chronic kidney disease, stage 3 (moderate) (5) Acute metabolic encephalopathy Current Visit: Yes Status: Acute Pt has become increasingly confused and somnolent Likely secondary to renal failure and metabolic acidosis Continue to treat renal function Continue to monitor mental status (6) Metabolic acidosis Current Visit: Yes Status: Resolved Secondary to renal and respiratory failure Resolved s/p extubation and administration of sodium bicarb drip Continue to treat renal failure Continue to monitor (7) Acute on chronic blood loss anemia Current Visit: Yes Status: Acute Chronic anemia at baseline of 8-9 Pt received 2 units PRBCs on initial visit Hemoglobin stable after Cath, continue to monitor Transfused 2 units to help with GILES on CKD Hgb today 8.1, stable (8) C. difficile diarrhea Current Visit: Yes Status: Suspected Per family this started as an outpatient Will continue with IV Flagyl and vancomycin orally Rectal vanc DC'd per ID Patient is C. diff positive on lab draw but culture negative C. diff toxin negative CT abdomen/pelvis shows large bilateral effusions, cirrhotic morphology of the liver with mild splenomegaly along with ascites. There is no evidence of toxic megacolon, but there is wall thickening of the sigmoid colon Pt has not had diarrhea for since first night of visit ID following - appreciate recommendations (9) Pneumonia Current Visit: Yes Status: Acute Sputum cultures with NGTD Procal significantly elevated at 53.1 Continue Cefepime and flagyl, IV Vancomycin stopped secondary to renal function ID following - appreciate recommendations Consolidation is likely pleural effusion but cannot rule out PNA at this time Qualifiers: Pneumonia type: due to unspecified organism Laterality: unspecified laterality Lung location: unspecified part of lung Qualified Code(s): J18.9 - Pneumonia, unspecified organism (10) Thrombocytopenia Current Visit: Yes Status: Acute Pt hs had slowly decreasing platelet levels Today plts 88 Continue to monitor If drop below 50 we will DC Heparin (11) Chronic venous hypertension w/ulcer and inflammation involv both sides Current Visit: Yes Status: Chronic ID, podiatry and wound care following, appreciate recommendations RLE with dressing C/D/I Left BKA (12) COPD (chronic obstructive pulmonary disease) Current Visit: Yes Status: Acute Continue Duonebs q4H, Symbicort and Singulair Qualifiers: COPD type: unspecified COPD Qualified Code(s): J44.9 - Chronic obstructive pulmonary disease, unspecified (13) Right foot ulcer Current Visit: Yes Status: Chronic Podiatry and wound care following - appreciate recommendations Pt grew GNR from swab on 10/08/18 - Hx of Staph aureus and pseudomonas On Vanc and Cefepime Qualifiers: Non-pressure ulcer stage: limited to breakdown of skin Qualified Code(s): L97.511 - Non-pressure chronic ulcer of other part of right foot limited to breakdown of skin (14) Hypertension Current Visit: Yes Status: Chronic Home meds intially held secondary to hypotension Pts BP has stabilized but will continue to hold meds as he is not hypertensive Qualifiers: Hypertension type: essential hypertension Qualified Code(s): I10 - Essential (primary) hypertension (15) Diabetes Current Visit: Yes Status: Chronic Continue home meds Continue Accu-Cheks q6H Low dose SSI Qualifiers: Diabetes mellitus type: type 2 Diabetes mellitus [facility] insulin use: wit h emt intermediate use Diabetes mellitus complication status: with skin complications Diabetes mellitus complication detail: with foot ulcer Qualified Code(s): E11.621 - Type 2 diabetes mellitus with foot ulcer; L97.509 - Non-pressure chronic ulcer of other part of unspecified foot with unspecified severity; Z79.4 - emt intermediate (current) use of insulin (16) DVT prophylaxis Current Visit: Yes Status: Acute Will start SQ Heparin and continue to monitor Hgb and platelets Subjective Principal diagnosis: CHF, AMI, C-Diff, GILES Interval history: Pt remains on BiPAP for respiratory support. Kidney function slightly improved today after administration of sodium bicarb. Pt has no complaints this am but is acting more confused. Will switch lasix to Bumex and if uop is not significantly increased this am we will add metolazone before the afternoon dose of Bumex. Objective PUL Vital signs: Last Vital Signs Temp 96.9 F L 10/18/18 04:00 Pulse 73 10/18/18 06:00 Resp 18 10/18/18 06:00 BP 127/55 10/18/18 06:00 Pulse Ox 100 10/18/18 06:00 General appearance: no acute distress Eyes: nonicteric Effort: normal Auscultation: bilateral: rales Cardiovascular: regular rate and rhythm Gastrointestinal: soft, non-tender Integumentary: normal Extremities: edema (1+ pitting edema to RLE), other (left BKA) non-focal exam, pupils equal and round mood appropriate Results - Laboratory Findings CBC and BMP: 10/18/18 04:00 10/18/18 04:00 ABG ABG pH 7.39 pH Units (7.32-7.45) 10/15/18 04:24 ABG pCO2 36 mmHg (35-45) 10/15/18 04:24 ABG pO2 100 mmHg (85-104) 10/15/18 04:24 ABG O2 Saturation 98 % (95-98) 10/15/18 04:24 PT/INR, D-dimer PT 15.9 Seconds (9.4-12.1) H 10/13/18 03:40 Abnormal lab findings: Abnormal lab results WBC 3.8 K/mcL (4.3-11.1) L 10/18/18 04:00 RBC 2.88 M/mcL (4.19-5.50) L 10/18/18 04:00 Hgb 8.1 g/dL (12.9-16.9) L 10/18/18 04:00 Hct 25.8 % (37.5-50.1) L 10/18/18 04:00 MCHC 31.4 g/dL (31.6-35.5) L 10/18/18 04:00 RDW 16.3 % (11.5-14.5) H 10/18/18 04:00 Plt Count 88 K/mcL (140-400) L 10/18/18 04:00 Band Neutrophils % 70.0 % (0-4) H 10/09/18 22:18 Neutrophils # 9.6 K/mcL (1.6-8.9) H 10/10/18 04:00 Lymphocytes # 0.5 K/mcL (0.6-4.6) L 10/11/18 04:05 Nucleated RBCs/100 WBC 0.5 /100 WBC (0) H 10/18/18 04:00 Platelet Estimate Slight Decrease (Normal) L 10/14/18 18:00 ESR 79 mm/hr (0-10) H 10/10/18 18:56 PT 15.9 Seconds (9.4-12.1) H 10/13/18 03:40 APTT 43.1 Seconds (26.0-36.0) H 10/13/18 03:40 Fibrinogen 465 mg/dL (169-393) H 10/10/18 17:15 Heparin Anti-Xa, Unfract 0.26 IU/mL (0.30-0.70) L 10/09/18 22:18 ABG pCO2 34 mmHg (35-45) L 10/13/18 04:36 ABG pO2 61 mmHg (85-104) L 10/14/18 05:01 ABG O2 Saturation 90 % (95-98) L 10/14/18 05:01 ABG Base Excess -3 mEq/L (-2 to 3) L 10/15/18 04:24 VBG pO2 69 mmHg (25-50) H 10/09/18 22:28 Sodium 135 mEq/L (136-145) L 10/17/18 03:33 Carbon Dioxide 22 mEq/L (23-29) L 10/18/18 04:00 BUN 41 mg/dL (8-23) H 10/18/18 04:00 Creatinine 2.85 mg/dL (0.70-1.30) H 10/18/18 04:00 Est GFR ( Amer) 27 (> 60) L 10/18/18 04:00 Est GFR (Non-Af Amer) 22 (> 60) L 10/18/18 04:00 Glucose 120 mg/dL (70-105) H 10/18/18 04:00 POC Glucose 168 mg/dL (70-99) H 10/17/18 23:47 Calcium 7.8 mg/dL (8.6-10.3) L 10/18/18 04:00 Venous Ioniz Calcium 1.11 mmol/L (1.15-1.35) L 10/18/18 04:29 AST 66 Units/L (13-39) H 10/09/18 22:18 Lactate Dehydrogenase 286 Units/L (140-271) H 10/10/18 19:23 Troponin I 31.20 ng/mL (< 0.04) H* 10/10/18 12:00 C-Reactive Protein 209 mg/L (Less than 10) H 10/10/18 19:23 B-Natriuretic Peptide 868 pg/mL (Less than 100) H 10/09/18 22:18 Serum Total Protein 5.9 g/dL (6.4-8.9) L 10/13/18 03:40 Albumin 2.0 g/dL (3.5-5.7) L 10/14/18 03:56 Globulin 3.6 g/dL (2.4-3.5) H 10/13/18 03:40 Albumin/Globulin Ratio 0.6 (1.1-2.2) L 10/13/18 03:40 Procalcitonin 53.10 ng/mL (0.00-0.15) H 10/10/18 05:00 Urine Clarity Cloudy (Clear) A 10/10/18 00:42 Urine Protein >=300 mg/dL (Neg-Trace) H 10/10/18 00:42 Urine Ketones Trace mg/dL (Negative) H 10/10/18 00:42 Urine Blood Trace (Negative) H 10/10/18 00:42 Urine Bilirubin Moderate (Negative) H 10/10/18 00:42 Urine Microscopic RBC 3-5 per hpf (0-3) H 10/10/18 00:42 Urine Microscopic WBC 5-15 per hpf (0-3) H 10/10/18 00:42 Ur Squamous Epith Cells Many per lpf (None-Few) H 10/10/18 00:42 Hyaline Casts Many per lpf (None-Few) H 10/10/18 00:42 Protein/Creatinin Ratio 1.00 mg/mg (0.00-0.20) H 10/13/18 15:30 Urine Total Protein 103 mg/dL (1-14) H 10/13/18 15:30 Nasal Screen MRSA (PCR) Positive (Negative) A 10/09/18 22:59 Stl C.diff Tox A&B Gene DETECTED (Not detect) A 10/09/18 13:59 Vancomycin Trough 23 mcg/mL (5-10) H 10/12/18 03:55 Crossmatch See Detail 10/14/18 11:05 - Clinical Findings Intake & Output: Intake & Output 10/17/18 10/17/18 10/18/18 15:59 23:59 07:59 Intake Total 620 / 2230 360 / 2230 200 / 200 Output Total 95 / 370 100 / 370 150 / 150 Balance 525 / 1860 260 / 1860 50 / 50 Weight 119.1 kg
[2018-10-18] MEDS ORDERED: Potassium Chloride Elixir 20 MEQ/15 ML UDC PO ONE ×2 (08:13)
[2018-10-18] MEDS: Budesonide/Formoterol 160/4.5 1 PUFF INH IH SCH ×2 (08:13→19:59)
[2018-10-18] MEDS: Cefepime HCl 1,000 MG in Water for inj. (sterile) 20 ML IVP SCH ×2 (08:31→21:15)
[2018-10-18] MEDS: Aspirin 81 MG TAB.CHEW PO SCH (08:32)
[2018-10-18] MEDS: MetroNIDAZOLE 500 MG/100 ML 500 MG/100 ML BAG IVPB SCH ×3 (08:32→23:23)
[2018-10-18] MEDS: Vancomycin Oral Soln 125 MG/2.5 ML UDC PO SCH ×4 (08:32→21:13)
--- NOTE | 2018-10-18 10:04 | Nephrology Progress Note ---
Date of Encounter: 10/18/18 Time of Encounter: 08:30 - Assessment and Plan (1) Acute on chronic kidney failure Current Visit: Yes Status: Acute Borderline oliguric acute kidney injury with multifactorial etiology: Sepsis, low ejection fraction, hemodynamics, probable ATN. His renal function has stabilized today after starting diuretics yesterday. Therefore, he will not need renal replacement therapy today, but his urine output remains borderline low/almost oliguric. Therefore I recommend optimizing the diuretics, and I discussed this closely with the ICU team to adjust the loop diuretic/switch to Bumex 1 mg IV twice a day, and titrate based upon urine output, SCr as well as vital signs including daily weights. Otherwise, continue to follow a renal protective/conservative strategy by avoiding nephrotoxic agents as able, strict I's and O's, daily weights, renal diet when able, and renal dosing. I will continue to closely follow with you on this highly complex patient who required a high degree of medical decision-making and evaluation and management. Qualifiers: Acute renal failure type: unspecified Chronic kidney disease stage: stage 3 (moderate) Qualified Code(s): N17.9 - Acute kidney failure, unspecified; N18.3 - Chronic kidney disease, stage 3 (moderate) (2) Anemia Current Visit: Yes Status: Chronic Goal hemoglobin is 10-11 in the setting of kidney disease. Transfusion parameters as per primary. Qualifiers: Anemia type: due to chronic kidney disease Chronic kidney disease stage: stage 3 (moderate) Qualified Code(s): N18.3 - Chronic kidney disease, stage 3 (moderate); D63.1 - Anemia in chronic kidney disease (3) Hypertension Current Visit: Yes Status: Chronic Hold any JESSY inhibitor or angiotensin receptor chilango due to the GILES. Qualifiers: Hypertension type: essential hypertension Qualified Code(s): I10 - Essential (primary) hypertension (4) Acute exacerbation of CHF (congestive heart failure) Current Visit: Yes Status: Acute He has a very low ejection fraction, and this suggests his GILES may be better treated with the presumption of cardiorenal syndrome. Continue/optimize diuretics today. Qualifiers: Heart failure type: systolic Qualified Code(s): I50.23 - Acute on chronic systolic (congestive) heart failure (5) Acute MN Current Visit: Yes Status: Acute Status post left heart catheter. Appreciate cardiology. Qualifiers: Myocardial infarction type: unspecified Involved coronary artery: unspecified coronary artery Qualified Code(s): I21.9 - Acute myocardial infarction, unspecified (6) DM type 2 (diabetes mellitus, type 2) Current Visit: Yes Status: Chronic Per the primary team Qualifiers: Diabetes mellitus intermediate manager insulin use: without intermediate manager use Diabetes mellitus complication status: without complication Qualified Code(s): E11.9 - Type 2 diabetes mellitus without complications Subjective Principal diagnosis: CHF, AMI, C-Diff, GILES Interval history: The patient was seen and examined earlier today. He was on BiPAP overnight, and appears to have tolerated the diuretics well. I discussed his care with the ICU team including the FINANCIAL UNDERWRITER and attending. Objective - Vital Signs Vital signs: Vital Signs Temp Pulse Resp BP Pulse Ox 10/18/18 09:03 60 10/18/18 09:00 66 22 119/49 94 10/18/18 08:13 17 115/56 100 10/18/18 08:00 73 16 115/56 100 10/18/18 07:45 98.4 F 10/18/18 07:00 73 18 127/55 100 10/18/18 06:00 73 18 127/55 100 10/18/18 05:00 68 18 109/59 100 10/18/18 04:21 20 100 10/18/18 04:00 96.9 F L 60 26 112/53 100 10/18/18 03:00 55 18 124/58 100 10/18/18 02:00 70 18 115/53 100 10/18/18 01:00 66 20 138/71 100 10/18/18 00:41 21 100 10/18/18 00:00 97.2 F L 60 18 127/65 100 10/17/18 23:00 63 28 103/54 100 10/17/18 22:58 60 10/17/18 22:00 61 26 118/62 100 10/17/18 21:00 59 28 114/55 100 10/17/18 20:20 29 100 10/17/18 20:00 97.8 F 60 22 116/46 100 10/17/18 19:00 60 22 126/51 100 10/17/18 18:00 68 24 125/71 97 10/17/18 17:00 65 22 126/58 99 10/17/18 16:00 68 19 117/56 100 10/17/18 15:55 20 99 07/19/19 15:00 61 21 120/50 98 10/17/18 14:00 61 20 118/58 98 10/17/18 13:20 66 20 117/56 98 10/17/18 12:00 68 23 121/52 100 10/17/18 11:35 98.7 F 10/17/18 11:30 19 100 10/17/18 11:00 83 23 116/53 100 Intake and Output 10/17/18 10/18/18 10/18/18 23:59 07:59 15:59 Intake Total 360 / 2230 300 / 400 100 / 400 Output Total 100 / 370 250 / 250 Balance 260 / 1860 50 / 150 100 / 150 Intake: IV Fluids 120 1990 300 / 400 100 / 400 Maxipime 1,000 MG In Water for inj. (sterile) 20 ML @ 300 mls/ hr IVP Q12H [facility] Rx#:[id number] Flagyl Premix 500 MG/100 ML 500 100 / 300 100 / 100 mg In 100 ml @ 100 mls/hr IVPB Q8HR [facility] Rx#:[id number] Potassium Chloride 10 mEq/100mL 200 / 300 100 / 300 10 meq In 100 ml @ 100 mls/hr IVPB Q1H PRN Rx#:[id number] Oral 240 / 240 Output: Rectal Tube 0 / 0 0 / 0 Catheter 100 / 370 250 / 250 Other: Weight 119.1 kg Blood Glucose* 142 Patient Weight 10/18/18 23:59 Weight 119.1 kg - General Appearance General appearance: Present: well-developed, well-nourished, appears started age, obese, fatigue, frail EENT: Present: mucous membranes dry Neck: Present: JVD, supple Respiratory: Present: rales, course breath sounds, rhonchi Cardiology: Present: edema, regular rate, regular rhythm, normal S1, normal S2 Gastrointestinal: Present: normoactive bowel sounds, no tenderness, no guarding, obese, distended Integumentary: Present: erythema, ecchymotic, hyperpigmentation, chronic venous stasis Neurologic: Present: no focal deficit, no asterixis Musculoskeletal: Present: no cyanosis, no clubbing Psychiatric: Present: cooperative - Lab 10/18/18 04:00 10/18/18 04:00 Most recent lab results 10/18/18 04:00 Calcium 7.8 L Phosphorus 3.0 Magnesium 2.1 Consult Discharge Plan - Plan Referrals: NONE,PCP [Primary Care Provider] -
[2018-10-18] MEDS: Bumetanide 1 MG/4 ML VIAL IVP SCH ×2 (10:43→16:39)
[2018-10-18] MEDS: *HR* LORazepam 2 MG/ML VIAL IVP PRN ×3 (17:49→23:25)
[2018-10-19] MEDS: Ipratropium/Albuterol Neb 3 ML IH SCH ×7 (00:31→23:50)
[2018-10-19 05:28] LABS: VBG Ionized Calcium 1.13 mmol/L (1.15-1.35)
[2018-10-19 05:33] LABS: Basophils % 0.3 %; Eosinophils # 0.2 K/mcL (0.0-0.6); Eosinophils % 4.5 %; Hematocrit 24.7 % (37.5-50.1); Hemoglobin 7.8 g/dL (12.9-16.9); Immature Granulocytes % 2.1 % (0-4); Immature Platelets 3.4 % (1.1-6.1); Lymphocytes # 1.1 K/mcL (0.6-4.6); Lymphocytes % 28.8 %; Mean Corpuscular HGB Conc 31.6 g/dL (31.6-35.5); Mean Corpuscular Hemoglobin 28.8 pg (28.0-33.3); Mean Corpuscular Volume 91.1 fL (83.0-100.0); Mean Platelet Volume 10.1 fL (9.4-12.4); Monocytes # 0.5 K/mcL (0.0-1.3); Platelet Count 86 K/mcL (140-400); Red Blood Count 2.71 M/mcL (4.19-5.50); Red Cell Distribution Width 16.6 % (11.5-14.5); Segmented Neutrophils % 51.3 %; White Blood Count 3.8 K/mcL (4.3-11.1)
[2018-10-19 05:45] LABS: Calcium 7.8 mg/dL (8.6-10.3); Magnesium 2.1 mg/dL (1.6-2.6); Potassium 4.1 mEq/L (3.5-5.1)
[2018-10-19] MEDS: Insulin LISPRO 300 UNITS/3 ML VIAL SQ SCH ×4 (06:14→23:52)
[2018-10-19] MEDS: *HR* Heparin 5,000 UNIT/ML VIAL SQ SCH ×3 (06:18→20:28)
[2018-10-19] MEDS: Pantoprazole 40 MG VIAL IVP SCH (06:18)
--- NOTE | 2018-10-19 06:38 | Pulmonology Progress Note ---
<KrystalJay W - Last Filed: 10/19/18 08:18> Date of Encounter: 10/19/18 Objective PUL Vital signs: Last Vital Signs Temp 97.9 F 10/19/18 04:00 Pulse 61 10/19/18 07:00 Resp 24 10/19/18 07:00 BP 98/35 10/19/18 07:00 Pulse Ox 100 10/19/18 07:00 Results - Laboratory Findings CBC and BMP: 10/19/18 05:15 10/19/18 05:15 ABG ABG pH 7.39 pH Units (7.32-7.45) 10/15/18 04:24 ABG pCO2 36 mmHg (35-45) 10/15/18 04:24 ABG pO2 100 mmHg (85-104) 10/15/18 04:24 ABG O2 Saturation 98 % (95-98) 10/15/18 04:24 PT/INR, D-dimer PT 15.9 Seconds (9.4-12.1) H 10/13/18 03:40 Abnormal lab findings: Abnormal lab results WBC 3.8 K/mcL (4.3-11.1) L 10/19/18 05:15 RBC 2.71 M/mcL (4.19-5.50) L 10/19/18 05:15 Hgb 7.8 g/dL (12.9-16.9) L 10/19/18 05:15 Hct 24.7 % (37.5-50.1) L 10/19/18 05:15 MCHC 31.4 g/dL (31.6-35.5) L 10/18/18 04:00 RDW 16.6 % (11.5-14.5) H 10/19/18 05:15 Plt Count 86 K/mcL (140-400) L 10/19/18 05:15 Band Neutrophils % 70.0 % (0-4) H 10/09/18 22:18 Neutrophils # 9.6 K/mcL (1.6-8.9) H 10/10/18 04:00 Lymphocytes # 0.5 K/mcL (0.6-4.6) L 10/11/18 04:05 Nucleated RBCs/100 WBC 0.5 /100 WBC (0) H 10/18/18 04:00 Platelet Estimate Slight Decrease (Normal) L 10/14/18 18:00 ESR 79 mm/hr (0-10) H 10/10/18 18:56 PT 15.9 Seconds (9.4-12.1) H 10/13/18 03:40 APTT 43.1 Seconds (26.0-36.0) H 10/13/18 03:40 Fibrinogen 465 mg/dL (169-393) H 10/10/18 17:15 Heparin Anti-Xa, Unfract 0.26 IU/mL (0.30-0.70) L 10/09/18 22:18 ABG pCO2 34 mmHg (35-45) L 10/13/18 04:36 ABG pO2 61 mmHg (85-104) L 10/14/18 05:01 ABG O2 Saturation 90 % (95-98) L 10/14/18 05:01 ABG Base Excess -3 mEq/L (-2 to 3) L 10/15/18 04:24 VBG pO2 69 mmHg (25-50) H 10/09/18 22:28 Sodium 135 mEq/L (136-145) L 10/17/18 03:33 Chloride 108 mEq/L (98-107) H 10/19/18 05:15 Carbon Dioxide 22 mEq/L (23-29) L 10/18/18 04:00 BUN 43 mg/dL (8-23) H 10/19/18 05:15 Creatinine 2.66 mg/dL (0.70-1.30) H 10/19/18 05:15 Est GFR ( Amer) 29 (> 60) L 10/19/18 05:15 Est GFR (Non-Af Amer) 24 (> 60) L 10/19/18 05:15 Glucose 120 mg/dL (70-105) H 10/18/18 04:00 POC Glucose 106 mg/dL (70-99) H 10/18/18 23:36 Calcium 7.8 mg/dL (8.6-10.3) L 10/19/18 05:15 Venous Ioniz Calcium 1.13 mmol/L (1.15-1.35) L 10/19/18 05:26 AST 66 Units/L (13-39) H 10/09/18 22:18 Lactate Dehydrogenase 286 Units/L (140-271) H 10/10/18 19:23 Troponin I 31.20 ng/mL (< 0.04) H* 10/10/18 12:00 C-Reactive Protein 209 mg/L (Less than 10) H 10/10/18 19:23 B-Natriuretic Peptide 868 pg/mL (Less than 100) H 10/09/18 22:18 Serum Total Protein 5.9 g/dL (6.4-8.9) L 10/13/18 03:40 Albumin 2.0 g/dL (3.5-5.7) L 10/14/18 03:56 Globulin 3.6 g/dL (2.4-3.5) H 10/13/18 03:40 Albumin/Globulin Ratio 0.6 (1.1-2.2) L 10/13/18 03:40 Procalcitonin 53.10 ng/mL (0.00-0.15) H 10/10/18 05:00 Urine Clarity Cloudy (Clear) A 10/10/18 00:42 Urine Protein >=300 mg/dL (Neg-Trace) H 10/10/18 00:42 Urine Ketones Trace mg/dL (Negative) H 10/10/18 00:42 Urine Blood Trace (Negative) H 10/10/18 00:42 Urine Bilirubin Moderate (Negative) H 10/10/18 00:42 Urine Microscopic RBC 3-5 per hpf (0-3) H 10/10/18 00:42 Urine Microscopic WBC 5-15 per hpf (0-3) H 10/10/18 00:42 Ur Squamous Epith Cells Many per lpf (None-Few) H 10/10/18 00:42 Hyaline Casts Many per lpf (None-Few) H 10/10/18 00:42 Protein/Creatinin Ratio 1.00 mg/mg (0.00-0.20) H 10/13/18 15:30 Urine Total Protein 103 mg/dL (1-14) H 10/13/18 15:30 Nasal Screen MRSA (PCR) Positive (Negative) A 10/09/18 22:59 Stl C.diff Tox A&B Gene DETECTED (Not detect) A 10/09/18 13:59 Vancomycin Trough 23 mcg/mL (5-10) H 10/12/18 03:55 Crossmatch See Detail 10/14/18 11:05 - Clinical Findings Intake & Output: Intake & Output 10/18/18 10/19/18 10/19/18 23:59 07:59 15:59 Intake Total 120 / 640 100 / 100 Output Total 350 / 725 200 / 200 Balance -230 / -85 -100 / -100 Weight 119.5 kg Consult Discharge Plan - Plan Referrals: NONE,PCP [Primary Care Provider] - - Attending Attestation I examined this patient and my medical decision-making was reviewed with the Resident Physician. I agree with the documented findings, disposition and treatment plan as described except to the extent set forth below. We independently had [id number] contact with the patient Patient seen and examined at bedside Labs, radiology, chart personally reviewed. Management was reviewed during multidisciplinary critical care rounds. PHYSICAL SECURITY MANAGER: The patient is awake and alert no focal deficits Pulm: Acute hypoxic hypercapnic respiratory failure secondary to CHF continue BiPAP stable oxygenation Cards: Decompensated heart failure with preserved ejection fraction complicated by non-STEMI with recent PCI continue to diuresis tolerated blood pressure has been stable GI: Nothing by mouth for now Renal: UOP Monitored, Cont to Trend sCr and monitor Electrolytes. ID: He is being treated for C. difficile and possible pneumonia appreciated infectious disease recommendations Heme/Onc: Slightly drop in H&H now under 8 we will transfuse 1 units PRBC and atelectasis more likely secondary to critical illness and frequent blood draws as opposed to blood loss from hemorrhage Endo: Glucose Monitored Integ/MSK: Skin Care per routine ICU Nursing Protocol to prevent ulcers. Lines: All lines examined without evidence of infection : Dispo: Patient has been stable mildly ICU for 48 hours on current therapy now requiring vasopressor will be stable for transfer to stepdown unit for ongoing care CODE: Full. <Fany Dominguez R - Last Filed: 10/19/18 09:38> Date of Encounter: 10/19/18 Time of Encounter: 06:38 Assessment and Plan (1) NSTEMI (non-ST elevated myocardial infarction) Current Visit: Yes Status: Acute Patient found to have significant elevation in his troponin with troponin less than upper limit of normal at [facility] and upon arrival to [place] was found to have troponin of 30.22 and repeat 30.47 Echocardiogram limited was obtained which shows EF of 25% which is a significant drop from previous in 06/19/18 which had a EF of 60-65% The patient does have a long history of cardiac disease and has undergone CABG in 2001 Patient underwent catheterization and a bare metal stent was placed in the saphenous venous graft OM1 on 10/10/18 Continuing on aspirin and Plavix SQ heparin with further monitoring of potential bleeding Dopamine for hypotension was DC'd Transfusion of PRBCs as pt can tolerate for better perfusion Pt now having episodes of bradycardia that have self resolved Reconsulting cardio for their input They state he may be in a mobitz 1 heart block and request an EKG EKG showed slow afib Cardio has signed off (2) Acute respiratory failure Current Visit: Yes Status: Acute Pt transferred from [facility] due to respiratory failure, arrived on BiPAP Was initially tolerating BiPAP but was eventually intubated due to fatigure and the need for the patient to lie down for cardiac catheterization Pt intubated at 0030 on 10/10/18 Pt was extubated 10/15 at 0850 and has been tolerating extubation well He remains fluid overloaded and diuresis has slowed secondary to renal failure Pt is at moderate risk re-intubation during this stay Tolerated BiPAP overnight, will continue to BiPAP prn for respiratory distress Qualifiers: Respiratory failure complication: unspecified whether with hypoxia or hypercapnia Qualified Code(s): J96.00 - Acute respiratory failure, unspecified whether with hypoxia or hypercapnia (3) Acute decompensated heart failure Current Visit: Yes Status: Acute Patient had acute decompensation of his heart failure likely secondary to subacu te versus acute myocardial infarction EF on limited echo was 25%, of a significant decrease from May 2018 when it was 60-65% Will continue with diuresis as kidneys can tolerate On BiPAP CXR 10/14 shows slightly improving pulmonary edema Placed pt on nitro drip and start scheduled hydralazine for diuresis on 10/15 with improved uop Now switch to isosorbide dinitrite and hydralazine TID as pt is now taking oral meds Switch Lasix BID to 1mg Bumex BID with add metolazone Continue other treatment as above (4) Acute on chronic kidney failure Current Visit: Yes Status: Acute CKD stage 3 with baseline Cre appx 1.5 Kidney function continues to decline Cre today 2.66 Improved urinary output intially with lasix Lasix given again without significant effect Consultation to nephrology was placed - appreciate recommendations Continue to avoid nephrotoxic agents Pt now on Bumex 1mg BID with Metolazone Qualifiers: Acute renal failure type: unspecified Chronic kidney disease stage: stage 3 (moderate) Qualified Code(s): N17.9 - Acute kidney failure, unspecified; N18.3 - Chronic kidney disease, stage 3 (moderate) (5) Acute metabolic encephalopathy Current Visit: Yes Status: Acute Pt has become increasingly confused and somnolent Likely secondary to renal failure and metabolic acidosis Continue to treat renal function Continue to monitor mental status (6) Metabolic acidosis Current Visit: Yes Status: Resolved Secondary to renal and respiratory failure Resolved s/p extubation and administration of sodium bicarb drip Continue to treat renal failure Continue to monitor (7) Acute on chronic blood loss anemia Current Visit: Yes Status: Acute Chronic anemia at baseline of 8-9 Pt received 2 units PRBCs on initial visit Hemoglobin stable after Cath, continue to monitor Transfused 2 units to help with GILES on CKD Hgb today 7.8 - will transfuse 1 unit PRBCs (8) C. difficile diarrhea Current Visit: Yes Status: Suspected Per family this started as an outpatient Will continue with IV Flagyl and vancomycin orally Rectal vanc DC'd per ID Patient is C. diff positive on lab draw but culture negative C. diff toxin negative CT abdomen/pelvis shows large bilateral effusions, cirrhotic morphology of the liver with mild splenomegaly along with ascites. There is no evidence of toxic megacolon, but there is wall thickening of the sigmoid colon Pt has not had diarrhea for since first night of visit ID following - appreciate recommendations (9) Pneumonia Current Visit: Yes Status: Acute Sputum cultures with NGTD Procal significantly elevated at 53.1 Continue Cefepime and flagyl, IV Vancomycin stopped secondary to renal function ID following - appreciate recommendations Consolidation is likely pleural effusion but cannot rule out PNA at this time Qualifiers: Pneumonia type: due to unspecified organism Laterality: unspecified lateral ity Lung location: unspecified part of lung Qualified Code(s): J18.9 - Pneumonia, unspecified organism (10) Thrombocytopenia Current Visit: Yes Status: Acute Pt hs had slowly decreasing platelet levels Today plts 86 Continue to monitor If drop below 50 we will DC Heparin (11) Chronic venous hypertension w/ulcer and inflammation involv both sides Current Visit: Yes Status: Chronic ID, podiatry and wound care following, appreciate recommendations RLE with dressing C/D/I Left BKA (12) COPD (chronic obstructive pulmonary disease) Current Visit: Yes Status: Acute Continue Duonebs q4H, Symbicort and Singulair Qualifiers: COPD type: unspecified COPD Qualified Code(s): J44.9 - Chronic obstructive pulmonary disease, unspecified (13) Right foot ulcer Current Visit: Yes Status: Chronic Podiatry and wound care following - appreciate recommendations Pt grew GNR from swab on 10/08/18 - Hx of Staph aureus and pseudomonas On Vanc and Cefepime Qualifiers: Non-pressure ulcer stage: limited to breakdown of skin Qualified Code(s): L97.511 - Non-pressure chronic ulcer of other part of right foot limited to breakdown of skin (14) Hypertension Current Visit: Yes Status: Chronic Home meds intially held secondary to hypotension Pts BP has stabilized but will continue to hold meds as he is not hypertensive Qualifiers: Hypertension type: essential hypertension Qualified Code(s): I10 - Essential (primary) hypertension (15) Diabetes Current Visit: Yes Status: Chronic Continue home meds Continue Accu-Cheks q6H Low dose SSI Qualifiers: Diabetes mellitus type: type 2 Diabetes mellitus care home insulin use: with long wall shear operator use Diabetes mellitus complication status: with skin complications Diabetes mellitus complication detail: with foot ulcer Qualified Code(s): E11.621 - Type 2 diabetes mellitus with foot ulcer; L97.509 - Non-pressure chronic ulcer of other part of unspecified foot with unspecified severity; Z79.4 - rn long term care (current) use of insulin (16) DVT prophylaxis Current Visit: Yes Status: Acute Will start SQ Heparin and continue to monitor Hgb and platelets Subjective Principal diagnosis: CHF, AMI, C-Diff, GILES Interval history: Pt remains on BiPAP for respiratory support. Kidney function slightly improved today but has not had improved uop - will add metolazone prior to Bumex administration. Hgb has dropped below 8 therefore we will transfuse another unit of PRBCs. Pt will be stepped down to 2N today as his condition has been stable. Objective PUL Vital signs: Last Vital Signs Temp 97.9 F 10/19/18 04:00 Pulse 64 10/19/18 06:00 Resp 18 10/19/18 06:00 BP 116/64 10/19/18 06:00 Pulse Ox 100 10/19/18 06:00 General appearance: no acute distress Eyes: nonicteric Effort: normal Auscultation: bilateral: rales Cardiovascular: regular rate and rhythm Gastrointestinal: soft, non-tender Integumentary: normal Extremities: edema (2+ pitting edema on RLE), other (Left BKA) non-focal exam, pupils equal and round Results - Laboratory Findings CBC and BMP: 10/19/18 05:15 10/19/18 05:15 ABG ABG pH 7.39 pH Units (7.32-7.45) 10/15/18 04:24 ABG pCO2 36 mmHg (35-45) 10/15/18 04:24 ABG pO2 100 mmHg (85-104) 10/15/18 04:24 ABG O2 Saturation 98 % (95-98) 10/15/18 04:24 PT/INR, D-dimer PT 15.9 Seconds (9.4-12.1) H 10/13/18 03:40 Abnormal lab findings: Abnormal lab results WBC 3.8 K/mcL (4.3-11.1) L 10/19/18 05:15 RBC 2.71 M/mcL (4.19-5.50) L 10/19/18 05:15 Hgb 7.8 g/dL (12.9-16.9) L 10/19/18 05:15 Hct 24.7 % (37.5-50.1) L 10/19/18 05:15 MCHC 31.4 g/dL (31.6-35.5) L 10/18/18 04:00 RDW 16.6 % (11.5-14.5) H 10/19/18 05:15 Plt Count 86 K/mcL (140-400) L 10/19/18 05:15 Band Neutrophils % 70.0 % (0-4) H 10/09/18 22:18 Neutrophils # 9.6 K/mcL (1.6-8.9) H 10/10/18 04:00 Lymphocytes # 0.5 K/mcL (0.6-4.6) L 10/11/18 04:05 Nucleated RBCs/100 WBC 0.5 /100 WBC (0) H 10/18/18 04:00 Platelet Estimate Slight Decrease (Normal) L 10/14/18 18:00 ESR 79 mm/hr (0-10) H 10/10/18 18:56 PT 15.9 Seconds (9.4-12.1) H 10/13/18 03:40 APTT 43.1 Seconds (26.0-36.0) H 10/13/18 03:40 Fibrinogen 465 mg/dL (169-393) H 10/10/18 17:15 Heparin Anti-Xa, Unfract 0.26 IU/mL (0.30-0.70) L 10/09/18 22:18 ABG pCO2 34 mmHg (35-45) L 10/13/18 04:36 ABG pO2 61 mmHg (85-104) L 10/14/18 05:01 ABG O2 Saturation 90 % (95-98) L 10/14/18 05:01 ABG Base Excess -3 mEq/L (-2 to 3) L 10/15/18 04:24 VBG pO2 69 mmHg (25-50) H 10/09/18 22:28 Sodium 135 mEq/L (136-145) L 10/17/18 03:33 Chloride 108 mEq/L (98-107) H 10/19/18 05:15 Carbon Dioxide 22 mEq/L (23-29) L 10/18/18 04:00 BUN 43 mg/dL (8-23) H 10/19/18 05:15 Creatinine 2.66 mg/dL (0.70-1.30) H 10/19/18 05:15 Est GFR ( Amer) 29 (> 60) L 10/19/18 05:15 Est GFR (Non-Af Amer) 24 (> 60) L 10/19/18 05:15 Glucose 120 mg/dL (70-105) H 10/18/18 04:00 POC Glucose 106 mg/dL (70-99) H 10/18/18 23:36 Calcium 7.8 mg/dL (8.6-10.3) L 10/19/18 05:15 Venous Ioniz Calcium 1.13 mmol/L (1.15-1.35) L 10/19/18 05:26 AST 66 Units/L (13-39) H 10/09/18 22:18 Lactate Dehydrogenase 286 Units/L (140-271) H 10/10/18 19:23 Troponin I 31.20 ng/mL (< 0.04) H* 10/10/18 12:00 C-Reactive Protein 209 mg/L (Less than 10) H 10/10/18 19:23 B-Natriuretic Peptide 868 pg/mL (Less than 100) H 10/09/18 22:18 Serum Total Protein 5.9 g/dL (6.4-8.9) L 10/13/18 03:40 Albumin 2.0 g/dL (3.5-5.7) L 10/14/18 03:56 Globulin 3.6 g/dL (2.4-3.5) H 10/13/18 03:40 Albumin/Globulin Ratio 0.6 (1.1-2.2) L 10/13/18 03:40 Procalcitonin 53.10 ng/mL (0.00-0.15) H 10/10/18 05:00 Urine Clarity Cloudy (Clear) A 10/10/18 00:42 Urine Protein >=300 mg/dL (Neg-Trace) H 10/10/18 00:42 Urine Ketones Trace mg/dL (Negative) H 10/10/18 00:42 Urine Blood Trace (Negative) H 10/10/18 00:42 Urine Bilirubin Moderate (Negative) H 10/10/18 00:42 Urine Microscopic RBC 3-5 per hpf (0-3) H 10/10/18 00:42 Urine Microscopic WBC 5-15 per hpf (0-3) H 10/10/18 00:42 Ur Squamous Epith Cells Many per lpf (None-Few) H 10/10/18 00:42 Hyaline Casts Many per lpf (None-Few) H 10/10/18 00:42 Protein/Creatinin Ratio 1.00 mg/mg (0.00-0.20) H 10/13/18 15:30 Urine Total Protein 103 mg/dL (1-14) H 10/13/18 15:30 Nasal Screen MRSA (PCR) Positive (Negative) A 10/09/18 22:59 Stl C.diff Tox A&B Gene DETECTED (Not detect) A 10/09/18 13:59 Vancomycin Trough 23 mcg/mL (5-10) H 10/12/18 03:55 Crossmatch See Detail 10/14/18 11:05 - Clinical Findings Intake & Output: Intake & Output 10/18/18 10/18/18 10/19/18 15:59 23:59 07:59 Intake Total 220 / 640 120 / 640 100 / 100 Output Total 350 / 725 200 / 200 Balance 220 / -85 -230 / -85 -100 / -100 Weight 119.5 kg
[2018-10-19] MEDS: Bumetanide 1 MG/4 ML VIAL IVP SCH ×2 (08:20→16:18)
[2018-10-19] MEDS: Vancomycin Oral Soln 125 MG/2.5 ML UDC PO SCH ×4 (08:20→20:29)
[2018-10-19] MEDS: Cefepime HCl 1,000 MG in Water for inj. (sterile) 20 ML IVP SCH (08:21)
[2018-10-19] MEDS: MetroNIDAZOLE 500 MG/100 ML 500 MG/100 ML BAG IVPB SCH ×3 (08:21→23:43)
[2018-10-19] MEDS: Aspirin 81 MG TAB.CHEW PO SCH (08:21)
[2018-10-19] MEDS: hydrALAZINE 25 MG TABLET PO SCH ×3 (08:21→23:37)
[2018-10-19] MEDS: Budesonide/Formoterol 160/4.5 1 PUFF INH IH SCH ×2 (08:30→19:56)
[2018-10-19] MEDS ORDERED: metOLazone 5 MG TABLET PO SCH (09:00)
[2018-10-19] MEDS ORDERED: 0.9 % Sodium Chloride 250 ML ONE (09:20)
--- NOTE | 2018-10-19 09:43 | Nephrology Progress Note ---
Date of Encounter: 10/19/18 Time of Encounter: 08:50 - Assessment and Plan (1) Acute on chronic kidney failure Current Visit: Yes Status: Acute Continue diuretics which have both helped improve UOP and his SCr is trending better slowly. No indications for GRAPPLER today. Non-oliguric acute kidney injury with multifactorial etiology: Sepsis, low ejection fraction, hemodynamics, probable ATN. His renal function remains stabilize after starting diuretics on Saturday. Therefore, he will not need renal replacement therapy urgently over the weekend, but his urine output remains borderline low. Therefore I recommend optimizing the diuretics, and I discussed this closely with the ICU team to adjust the loop diuretic/switch to Bumex 1 mg IV twice a day, and titrate based upon urine output, SCr as well as vital signs including daily weights. Otherwise, continue to follow a renal protective/conservative strategy by avoiding nephrotoxic agents as able, strict I's and O's, daily weights, renal diet when able, and renal dosing. I will continue to closely follow with you on this highly complex patient who required a high degree of medical decision-making and evaluation and management. Qualifiers: Acute renal failure type: unspecified Chronic kidney disease stage: stage 3 (moderate) Qualified Code(s): N17.9 - Acute kidney failure, unspecified; N18.3 - Chronic kidney disease, stage 3 (moderate) (2) Anemia Current Visit: Yes Status: Chronic Qualifiers: Anemia type: due to chronic kidney disease Chronic kidney disease stage: stage 3 (moderate) Qualified Code(s): N18.3 - Chronic kidney disease, stage 3 (moderate); D63.1 - Anemia in chronic kidney disease (3) Hypertension Current Visit: Yes Status: Chronic Qualifiers: Hypertension type: essential hypertension Qualified Code(s): I10 - Essential (primary) hypertension (4) Acute exacerbation of CHF (congestive heart failure) Current Visit: Yes Status: Acute Qualifiers: Heart failure type: systolic Qualified Code(s): I50.23 - Acute on chronic systolic (congestive) heart failure (5) Acute AL Current Visit: Yes Status: Acute Qualifiers: Myocardial infarction type: unspecified Involved coronary artery: unspecified coronary artery Qualified Code(s): I21.9 - Acute myocardial infarction, unspecified (6) DM type 2 (diabetes mellitus, type 2) Current Visit: Yes Status: Chronic Qualifiers: Diabetes mellitus correction insulin use: without mh teacher use Diabetes mellitus complication status: without complication Qualified Code(s): E11.9 - Type 2 diabetes mellitus without complications Subjective Principal diagnosis: CHF, AMI, C-Diff, GILES Interval history: The patient was seen and examined earlier today in the ICU. He affirmed feeling about the same. He did not report N/V but did affirm having a diminished appetite and feeling swollen in his leg. Objective - Vital Signs Vital signs: Vital Signs Temp Pulse Resp BP Pulse Ox 10/19/18 08:16 98.1 F 10/19/18 08:00 79 10/19/18 07:00 61 24 98/35 100 10/19/18 06:00 64 18 116/64 100 10/19/18 05:00 56 16 122/54 100 10/19/18 04:10 20 100 10/19/18 04:09 25 100 10/19/18 04:00 97.9 F 63 18 127/62 100 10/19/18 03:00 66 18 119/60 100 10/19/18 02:00 65 20 126/58 100 10/19/18 01:00 69 21 125/50 100 10/19/18 00:32 20 100 10/19/18 00:00 98.2 F 66 19 127/35 100 10/18/18 23:00 70 20 123/56 100 10/18/18 22:00 72 16 123/52 100 10/18/18 21:00 63 20 123/54 96 10/18/18 20:01 16 96 10/18/18 20:00 97.6 F 79 22 131/65 94 10/18/18 19:00 80 20 122/66 96 10/18/18 18:00 68 19 122/65 93 10/18/18 17:00 71 22 122/60 94 10/18/18 16:00 98.5 F 64 19 112/54 94 10/18/18 15:55 21 98 10/18/18 15:08 60 10/18/18 15:00 99 21 134/58 90 10/18/18 14:00 100 22 118/62 100 10/18/18 13:00 60 15 126/56 100 10/18/18 12:07 60 10/18/18 12:00 72 19 136/53 97 10/18/18 11:26 22 97 10/18/18 11:00 98.3 F 63 21 125/46 96 10/18/18 10:00 66 22 123/65 96 Intake and Output 10/18/18 10/19/18 10/19/18 23:59 07:59 15:59 Intake Total 120 / 640 100 / 100 Output Total 350 / 725 200 / 250 50 / 250 Balance -230 / -85 -100 / -150 -50 / -150 Intake: IV Fluids 120 / 640 100 / 100 Maxipime 1,000 MG In Water for 20 / 40 inj. (sterile) 20 ML @ 300 mls/ hr IVP Q12H [facility] Rx#:[id number] Flagyl Premix 500 MG/100 ML 500 100 / 300 100 / 100 mg In 100 ml @ 100 mls/hr IVPB Q8HR [facility] Rx#:[id number] Output: Urine 50 / 50 Catheter 350 / 725 200 / 200 Other: Meal Breakfast Percent of Meal Consumed 40% Weight 119.5 kg Blood Glucose* 142 106 108 Patient Weight 10/19/18 23:59 Weight 119.5 kg - General Appearance Exam: General appearance: Present: well-developed, well-nourished, appears started age, obese, fatigue, frail EENT: Present: mucous membranes dry Neck: Present: JVD, supple Respiratory: Present: rales, course breath sounds, rhonchi Cardiology: Present: edema, regular rate, regular rhythm, normal S1, normal S2 Gastrointestinal: Present: normoactive bowel sounds, no tenderness, no guarding, obese, distended Integumentary: Present: erythema, ecchymotic, hyperpigmentation, chronic venous stasis Neurologic: Present: no focal deficit, no asterixis Musculoskeletal: Present: no cyanosis, no clubbing, left BKA Psychiatric: Present: cooperative - Lab 10/20/18 04:24 10/20/18 04:24 Most recent lab results 10/19/18 05:15 Calcium 7.8 L Phosphorus 3.0 Magnesium 2.1 Consult Discharge Plan - Plan Referrals: NONE,PCP [Primary Care Provider] -
[2018-10-19] MEDS ORDERED: *HR* Promethazine 25 MG/ML VIAL IVP PRN (10:35)
[2018-10-19] MEDS ORDERED: D5% in Water 1,000 ML IVC PRN (10:35)
[2018-10-19] MEDS ORDERED: *HR* Dextrose 50 % in Water (Syg) 50 ML SYRINGE IVP PRN (10:35)
[2018-10-19] MEDS ORDERED: Ondansetron 4 MG/2 ML VIAL IVP PRN (10:35)
[2018-10-19] MEDS ORDERED: Naloxone 0.4 MG/ML INJ IVP PRN (10:35)
[2018-10-19] MEDS ORDERED: Dextrose Gel 15 GM/37.5 ML TUBE PO PRN ×2 (10:35)
[2018-10-19] MEDS ORDERED: metOLazone 5 MG TABLET PO ONE (16:00)
[2018-10-19] MEDS: *HR* LORazepam 2 MG/ML VIAL IVP PRN ×2 (20:32→23:44)
[2018-10-19] MEDS ORDERED: Cefepime HCl 1,000 MG in Water for inj. (sterile) 20 ML IVP SCH (21:00)
[2018-10-20] MEDS: Ipratropium/Albuterol Neb 3 ML IH SCH ×6 (03:55→23:19)
[2018-10-20 04:44] LABS: Immature Granulocytes % 1.9 % (0-4); Mean Corpuscular HGB Conc 31.1 g/dL (31.6-35.5)
[2018-10-20 04:46] LABS: Basophils % 0.4 %; Eosinophils # 0.2 K/mcL (0.0-0.6); Hematocrit 28.3 % (37.5-50.1); Hemoglobin 8.8 g/dL (12.9-16.9); Immature Platelets 3.9 % (1.1-6.1); Lymphocytes # 1.4 K/mcL (0.6-4.6); Mean Corpuscular Hemoglobin 28.9 pg (28.0-33.3); Mean Corpuscular Volume 93.1 fL (83.0-100.0); Mean Platelet Volume 11.1 fL (9.4-12.4); Monocytes # 0.6 K/mcL (0.0-1.3); Monocytes % 11.1 %; Red Blood Count 3.04 M/mcL (4.19-5.50); Red Cell Distribution Width 17.2 % (11.5-14.5); Segmented Neutrophils % 56.6 %; White Blood Count 5.3 K/mcL (4.3-11.1)
[2018-10-20 04:49] LABS: Platelet Count 90 K/mcL (140-400)
[2018-10-20 04:50] LABS: Platelet Estimate Decreased (Normal)
[2018-10-20 04:59] LABS: Calcium 7.8 mg/dL (8.6-10.3); Magnesium 2.1 mg/dL (1.6-2.6); Phosphorous 3.3 mg/dL (2.7-4.5); Potassium 4.5 mEq/L (3.5-5.1)
[2018-10-20] MEDS: *HR* Heparin 5,000 UNIT/ML VIAL SQ SCH ×3 (05:55→21:09)
[2018-10-20] MEDS: Insulin LISPRO 300 UNITS/3 ML VIAL SQ SCH ×4 (05:58→23:57)
[2018-10-20] MEDS ORDERED: Pantoprazole 40 MG VIAL IVP SCH (06:30)
[2018-10-20] MEDS: Budesonide/Formoterol 160/4.5 1 PUFF INH IH SCH ×2 (07:19→19:24)
[2018-10-20] MEDS: Bumetanide 1 MG/4 ML VIAL IVP SCH ×2 (07:20→15:40)
[2018-10-20] MEDS: metOLazone 5 MG TABLET PO SCH (07:20)
[2018-10-20] MEDS: Cefepime HCl 1,000 MG in Water for inj. (sterile) 20 ML IVP SCH (07:21)
[2018-10-20] MEDS: Vancomycin Oral Soln 125 MG/2.5 ML UDC PO SCH ×4 (07:21→21:18)
[2018-10-20] MEDS: Aspirin 81 MG TAB.CHEW PO SCH (07:21)
[2018-10-20] MEDS: hydrALAZINE 25 MG TABLET PO SCH ×3 (07:21→23:53)
[2018-10-20] MEDS: MetroNIDAZOLE 500 MG/100 ML 500 MG/100 ML BAG IVPB SCH ×3 (07:22→23:49)
--- NOTE | 2018-10-20 08:32 | Infectious Disease Progress No ---
ID Progress Note Date of Encounter: 10/20/18 Time of Encounter: 12:01 - Subjective Subjective: Patient is seen and examined at the bedside. He is day 6 status post extubation. He is more alert than when I saw him on Saturday. He is A&O*3, moving his extremities, clear speech and response to question in an appropriate manner. As per his nurse patient had 1 bowel movement yesterday. He continues to be afebrile and is not leukocytotic, currently on 3 L of nasal cannula satting at 93%. Patient continues to have nonoliguric GILES with Cr of 2.66. He is currently on day 11 of IV 500MG q8h Flagyl, day 11 of IV 1 g q24h cefepime, currently on day 11 of 125 mg PO Vancomycin crushed in apple sauce. - Objective CBC & Chem 7: 10/20/18 04:24 10/20/18 04:24 - Exam Vitals: Temp Pulse Resp BP Pulse Ox 97.9 F 58 18 115/61 92 10/20/18 08:00 10/20/18 08:00 10/20/18 08:00 10/20/18 08:00 10/20/18 08:00 Exam: Gen.: Vitals noted. No acute distress. On 3L NC , A&O*3. HEENT: oropharynx clear, Normocephalic, atraumatic, MMM Neck: supple, no JVD, no lymphadenopathy, no carotid bruit. Cardiac: RRR, no murmur, +S1/S2, No BLE edema, PMI non-displaced Pulmonary: bilateral wheezing, no rales or rhonchi, equal chest expansion Abdomen: soft, nontender, BS noted, no guarding, undistended. No organomegaly, no pulsatile masses, Skin: R leg cellulites drapped in bandage, warm and dry Extremities: Left leg amputated, R leg cellulites drapped in bandage, warm and dry MSK: ROM not assessed. no joint swelling noted, gait not assessed while in bed. Non tender calf or clubbing, no cyanosis/clubbing/ or edema Neuro: A&O, moves all extremities, no focal deficits, sensation intact - Assessment and Plan (1) Metabolic encephalopathy Current Visit: Yes Status: Acute - Seems to have improved since the last time I saw him. - was likely multifactorial due to sepsis , with GILES , s/p intubation and discontinuation of versed. Patient also had hydrostatic pulmonary edema with a reduced EF of 25 % which is unchanged from his previous Echo. -patient is A*O to person, place and time. -continue Abx , continue on Bumex 1 mg IV BID. SNOMED Code(s): 66647994 (2) Shock Current Visit: Yes Status: Resolved -Resolved , patient currently extubated and off pressors -Was Likely cardiogenic in nature -Patient was transferred from [facility] to ICU because of diarrheal episodes for the past 2 weeks accompanied by abdominal pain -Pertinent Vitals /Labs on admission: Temp: 99.9, Pulse: 97, RR: 27, WBC: 15.7, Band neutrophils 70%, Lactate : 2.1, BNP: 2898. -Pertinent Vitals /Labs now: Temp: 97.8, Pulse: 69, RR: 14, WBC: 4.1 -He also has a right leg cellulitis- no evidence of any bleeding or serosanguineous discharge -10/09/18 Chest x-ray showed bilateral mild and lower lung airspace disease and bilateral pleural effusion with concerns for pulmonary edema -10/10/18 Abdomen /Pelvic CT revealed wall thickening of the sigmoid colon li henry related to lack of distention. Correlation for colitis is recommended -Currently on day 4 of IV 2g cefepime, day 3 of PO 500mg vancomycin, day 5 of IV 500 mg Flagyl PLAN -Continue PO Vancomycin tapering dose through November 20 for a total of 6 weeks -Continue cefepime 2 g IV every 12 hours for a total of 10-14 days through 10/24 -Continue IV Flagyl 500mg q8h through 10/24. SNOMED Code(s): 83417097 (3) C. difficile diarrhea Current Visit: Yes Status: Acute -Patient has a history of associated diarrhea . -He was treated in the hospital in the month of June for C. difficile and was on discharged vancomycin taper. -Has been afebrile since admission, with current white blood count of 5.3 . -Stool C. difficile toxin A&B was detected . -CT abdominal pelvis did not show any evidence for toxic megacolon but there was wall thickening of the sigmoid colon -Patient had 1 watery bowel movement yesterday and today. PLAN: -Continue vancomycin for 6 weeks. Tapering dose through November 20 SNOMED Code(s): 9426956946658 (4) Pneumonia Current Visit: Yes Status: Suspected Etiology unknown Procalcitonin significantly elevated at 53.1 on admission. on physical exam he has bilateral wheezes. patient on 3L satting at 93% 10/11/18: CXR Consolidation is likely pleural efusion but cannot rule out pneumonia at this time 10/14/18: CXR Improving bibasilar atelectesis or PNA Currently on day 11 of IV 500mg Flagyl, day 11 of 2gm cefepime through 10/24. PLAN: - Repeat chest x-ray -Dose adjust cefepime based on Creatinine Clearance Qualifiers: Pneumonia type: aspiration pneumonia Laterality: left Lung location: unspecified part of lung SNOMED Code(s): 482252752 (5) NSTEMI (non-ST elevated myocardial infarction) Current Visit: Yes Status: Acute Patient found to have significant elevation in his troponin with troponin less than upper limit of normal at [facility] and upon arrival to [place] was found to have troponin of 30.22 and repeat 30.47 * Echocardiogram limited was obtained which shows EF of 25% which is a significant drop from previous in 05/30/18 which had a EF of 60-65% * The patient does have a long history of cardiac disease and has undergone CABG prior * Patient underwent catheterization overnight with Dr. Velasquez and a bare metal stent was placed in the saphenous venous graft OM1 SNOMED Code(s): 99382032 (6) Congestive heart failure Current Visit: No Status: Acute - Patient has an acute decompensation of heart failure likely due to NSTEMI -Recent echocardiogram showed an EF of 25% which was a significant drop from his EF in 05/2018 when it was 60-65% -Patient has been switched from Lasix twice a day to 1 mg Bumex twice a day as per nephrology - Further management as per the ICU team Qualifiers: Heart failure type: systolic Heart failure chronicity: acute on chronic Qualified Code(s): I50.23 - Acute on chronic systolic (congestive) heart failure SNOMED Code(s): 91744606 (7) CKD (chronic kidney disease) stage 3, GFR 30-59 ml/min Current Visit: Yes Status: Acute -She has a history of CK D of a stage III -Patient has had a bump in his creatinine from 1.56 on admission to 2.42 . -Avoid nephrotoxic agent and renally dose steroids. SNOMED Code(s): 011693185 (8) Allergy to multiple antibiotics Current Visit: Yes Status: Acute Patient allergic to multiple antibiotics like Biaxin, Keflex, Levaquin, Zithromax and clindamycin SNOMED Code(s): 327256420031894 (9) DM type 2 (diabetes mellitus, type 2) Current Visit: Yes Status: Chronic Patient has a history of diabetes. Currently on low-dose sliding scale insulin Qualifiers: Diabetes mellitus terminologist insulin use: without terminologist use Diabetes mellitus complication status: with skin complications Diabetes mellitus complication detail: with foot ulcer Qualified Code(s): E11.621 - Type 2 diabetes mellitus with foot ulcer; L97.509 - Non-pressure chronic ulcer of other part of unspecified foot with unspecified severity SNOMED Code(s): 51049994 (10) Venous stasis dermatitis of right lower extremity Current Visit: Yes Status: Acute -Venous stasis of the right lower extremity with no evidence of any bleeding or serosangunous discharge -looks stable at baseline SNOMED Code(s): 62789028 Consult Discharge Plan - Plan Referrals: NONE,PCP [Primary Care Provider] - - Attending Attestation I examined this patient and my medical decision-making was reviewed with the Resident Physician. I agree with the documented findings, disposition and treatment plan as described except to the extent set forth below. Assessment and plan: 1. shock - cardiogenic? improved. off dopamine 2. Pneumonia - likely aspiration; improved 3. C diff colitis first recurrnece - will treat for 6 weeks with tapering dose through November 20 4. lower extremities venous stasis 5. third spacing 6. Metabolic encephalopathy Recommendations: continue cefepime and flagyl through 10/24 continue oral vanc [id number] we will do tapering dose through November 20 Repeat CXR dose adjust cefepime based on CrCl
[2018-10-20] MEDS ORDERED: WATER FOR INJ IVP SCH (09:00)
[2018-10-20] MEDS ORDERED: CEFEPIME HCL IVP SCH (09:00)
--- NOTE | 2018-10-20 10:29 | Nephrology Progress Note ---
Date of Encounter: 10/20/18 Time of Encounter: 08:20 - Assessment and Plan (1) Acute on chronic kidney failure Current Visit: Yes Status: Acute He appears to be stable with an ongoing borderline low UOP but non-oliguric setting of GILES. The most likely etiology: Sepsis, low ejection fraction, hemodynamics, probable ATN. His renal function again is roughly paramjit so there is no urgent indication for [employer] today. Discussed with the SAND BOBBER. Continue the diuretics as started a few days ago: Bumex 1 mg IV twice a day with metolazon 5mg po daily, and titrate based upon urine output, SCr as well as vital signs including daily weights. Otherwise, continue to follow a renal protective/conservative strategy by avoiding nephrotoxic agents as able, strict I's and O's, daily weights, renal diet when able, and renal dosing. I will continue to closely follow with you on this highly complex patient who required a high degree of medical decision-making and evaluation and management. Qualifiers: Acute renal failure type: unspecified Chronic kidney disease stage: stage 3 (moderate) Qualified Code(s): N17.9 - Acute kidney failure, unspecified; N18.3 - Chronic kidney disease, stage 3 (moderate) (2) Anemia Current Visit: Yes Status: Chronic Qualifiers: Anemia type: due to chronic kidney disease Chronic kidney disease stage: stage 3 (moderate) Qualified Code(s): N18.3 - Chronic kidney disease, stage 3 (moderate); D63.1 - Anemia in chronic kidney disease (3) Hypertension Current Visit: Yes Status: Chronic Qualifiers: Hypertension type: essential hypertension Qualified Code(s): I10 - E ssential (primary) hypertension (4) Acute exacerbation of CHF (congestive heart failure) Current Visit: Yes Status: Acute Qualifiers: Heart failure type: systolic Qualified Code(s): I50.23 - Acute on chronic systolic (congestive) heart failure (5) Acute [place] Current Visit: Yes Status: Acute Qualifiers: Myocardial infarction type: unspecified Involved coronary artery: unspecified coronary artery Qualified Code(s): I21.9 - Acute myocardial infarction, unspecified (6) DM type 2 (diabetes mellitus, type 2) Current Visit: Yes Status: Chronic Qualifiers: Diabetes mellitus alf insulin use: without intermediate designer use Diabetes mellitus complication status: without complication Qualified Code(s): E11.9 - Type 2 diabetes mellitus without complications Subjective Principal diagnosis: CHF, AMI, C-Diff, GILES Interval history: The patient was seen and examined earlier today, and he affirmed having ongoing swelling, diminished appetite, but no active chest pain, vomiting, or diarrhea. I discussed his care with the ICU team. Objective - Vital Signs Vital signs: Vital Signs Temp Pulse Resp BP Pulse Ox 10/20/18 10:00 60 20 93 10/20/18 08:00 97.9 F 58 18 115/61 92 10/20/18 07:30 62 10/20/18 07:25 22 126/56 98 10/20/18 06:00 64 22 126/56 98 10/20/18 04:00 98.5 F 60 20 132/59 98 10/20/18 03:56 16 96 10/20/18 02:00 61 26 116/62 98 10/20/18 00:00 98.5 F 68 22 111/52 99 10/19/18 23:51 25 99 10/19/18 22:00 69 26 142/57 98 10/19/18 20:00 98.2 F 63 21 137/73 93 10/19/18 19:59 16 95 10/19/18 18:00 84 21 122/71 96 10/19/18 17:00 78 21 116/53 96 10/19/18 16:21 98.4 F 10/19/18 16:01 79 10/19/18 15:46 24 100 10/19/18 15:00 61 18 118/94 98 10/19/18 14:00 60 18 111/64 95 10/19/18 13:00 57 18 127/70 94 10/19/18 12:18 97.7 F 60 18 137/89 94 10/19/18 11:47 79 10/19/18 11:33 20 100 10/19/18 11:00 59 15 124/53 100 Intake and Output 10/19/18 10/20/18 10/20/18 23:59 07:59 15:59 Intake Total 120 / 620 120 / 220 100 / 220 Output Total 200 / 550 200 / 275 75 / 275 Balance -80 / 70 -80 / -55 25 / -55 Intake: IV Fluids 120 / 320 120 / 220 100 / 220 Maxipime 1,000 MG In Water for inj. (sterile) 20 ML @ 300 mls/ hr IVP Q24H [facility] Rx#:[id number] Flagyl Premix 500 MG/100 ML 500 100 / 100 100 / 200 100 / 200 mg In 100 ml @ 100 mls/hr IVPB Q8HR [facility] Rx#:[id number] Output: Catheter 200 / 500 200 / 275 75 / 275 Other: Weight 119.5 kg Blood Glucose* 192 133 Patient Weight 10/20/18 23:59 Weight 119.5 kg - General Appearance Exam: General appearance: Present: well-developed, well-nourished, appears started age, obese, fatigue, frail EENT: Present: mucous membranes dry Neck: Present: JVD, supple Respiratory: Present: rales, course breath sounds, rhonchi Cardiology: Present: edema, regular rate, regular rhythm, normal S1, normal S2 Gastrointestinal: Present: normoactive bowel sounds, no tenderness, no guarding, obese, distended Integumentary: Present: erythema, ecchymotic, hyperpigmentation, chronic venous stasis Neurologic: Present: no focal deficit, no asterixis Musculoskeletal: Present: no cyanosis, no clubbing, left BKA Psychiatric: Present: cooperative - Lab 10/20/18 04:24 10/20/18 04:24 Most recent lab results 10/20/18 04:24 Calcium 7.8 L Phosphorus 3.3 Magnesium 2.1 Consult Discharge Plan - Plan Referrals: NONE,PCP [Primary Care Provider] -
--- NOTE | 2018-10-20 13:46 | Palliative Progress Note ---
Date of Encounter: 10/20/18 Time of Encounter: 10:30 - Assessment and plan (1) Dyspnea Current Visit: No Status: Acute Assessment and plan: Currently tolerating NC at 3L. HOB up Supplemental O2 Duonebs Symbicort Suction PRN - Loose cough Qualifiers: Dyspnea type: unspecified Qualified Code(s): R06.00 - Dyspnea, unspecified (2) Goals of care, counseling/discussion Current Visit: Yes Status: Acute Assessment and plan: IConducted 15 minutes phone conversation with Trisha. She reports visiting at the patients bedside most of the weekend. Explained that patient had PT eval and is overall very weak and not really strong enough to feed himself. Trisha reports feeding the patient over the weekend. I explained that patient is continuing diuretics and received PRBC's for low Hgb. Explained that patient had significant IL and now has poor overall cardiac function. Trisha desires for the patient to continue hospital therapy and transition home at [place]. She REFUSES to discuss placing the in an ECF. Current goal remains for patient to continue aggressive medical management. verbalized that patient would not want to live in a prolonged vegetative state but is "OK" with short term intubation. Patient remains FULL CODE but family verbalized understandings of patients current status abd desires for patient to have PT if possible. (3) Altered mental status Current Visit: Yes Status: Acute Assessment and plan: Multifactorial given patients multiple issues. Patient more alert with generalized weakness. Qualifiers: Altered mental status type: unspecified Qualified Code(s): R41.82 - Altered mental status, unspecified (4) Palliative care encounter Current Visit: Yes Status: Acute (5) Acute [place] Current Visit: Yes Status: Acute Assessment and plan: Cardiology following. Qualifiers: Myocardial infarction type: unspecified Involved coronary artery: unspecified coronary artery Qualified Code(s): I21.9 - Acute myocardial infarction, unspecified - Time Spent With Patient Total time spent is greater than 50% in coordination of care (as documented) at patient's floor/unit and/or counseling patient: 25 - 35 minutes - Subjective Interval history: Patient more alert today but overall generalized weakness. Case discussed with PT/OT at bedside. Currently on 3L NC. Sats 94%. - Constitutional Vitals: Abnormal lab results WBC 3.8 K/mcL (4.3-11.1) L 10/19/18 05:15 RBC 3.04 M/mcL (4.19-5.50) L 10/20/18 04:24 Hgb 8.8 g/dL (12.9-16.9) L 10/20/18 04:24 Hct 28.3 % (37.5-50.1) L 10/20/18 04:24 MCHC 31.1 g/dL (31.6-35.5) L 10/20/18 04:24 RDW 17.2 % (11.5-14.5) H 10/20/18 04:24 Plt Count 90 K/mcL (140-400) L 10/20/18 04:24 Band Neutrophils % 70.0 % (0-4) H 10/09/18 22:18 Neutrophils # 9.6 K/mcL (1.6-8.9) H 10/10/18 04:00 Lymphocytes # 0.5 K/mcL (0.6-4.6) L 10/11/18 04:05 Nucleated RBCs/100 WBC 0.5 /100 WBC (0) H 10/18/18 04:00 Platelet Estimate Decreased (Normal) L 10/20/18 04:24 ESR 79 mm/hr (0-10) H 10/10/18 18:56 PT 15.9 Seconds (9.4-12.1) H 10/13/18 03:40 APTT 43.1 Seconds (26.0-36.0) H 10/13/18 03:40 Fibrinogen 465 mg/dL (169-393) H 10/10/18 17:15 Heparin Anti-Xa, Unfract 0.26 IU/mL (0.30-0.70) L 10/09/18 22:18 ABG pCO2 34 mmHg (35-45) L 10/13/18 04:36 ABG pO2 61 mmHg (85-104) L 10/14/18 05:01 ABG O2 Saturation 90 % (95-98) L 10/14/18 05:01 ABG Base Excess -3 mEq/L (-2 to 3) L 10/15/18 04:24 VBG pO2 69 mmHg (25-50) H 10/09/18 22:28 Sodium 135 mEq/L (136-145) L 10/17/18 03:33 Chloride 110 mEq/L (98-107) H 10/20/18 04:24 Carbon Dioxide 19 mEq/L (23-29) L 10/20/18 04:24 BUN 46 mg/dL (8-23) H 10/20/18 04:24 Creatinine 2.68 mg/dL (0.70-1.30) H 10/20/18 04:24 Est GFR ( Amer) 29 (> 60) L 10/20/18 04:24 Est GFR (Non-Af Amer) 24 (> 60) L 10/20/18 04:24 Glucose 120 mg/dL (70-105) H 10/18/18 04:00 POC Glucose 133 mg/dL (70-99) H 10/19/18 23:50 Calcium 7.8 mg/dL (8.6-10.3) L 10/20/18 04:24 Venous Ioniz Calcium 1.13 mmol/L (1.15-1.35) L 10/19/18 05:26 AST 66 Units/L (13-39) H 10/09/18 22:18 Lactate Dehydrogenase 286 Units/L (140-271) H 10/10/18 19:23 Troponin I 31.20 ng/mL (< 0.04) H* 10/10/18 12:00 C-Reactive Protein 209 mg/L (Less than 10) H 10/10/18 19:23 B-Natriuretic Peptide 868 pg/mL (Less than 100) H 10/09/18 22:18 Serum Total Protein 5.9 g/dL (6.4-8.9) L 10/13/18 03:40 Albumin 2.0 g/dL (3.5-5.7) L 10/14/18 03:56 Globulin 3.6 g/dL (2.4-3.5) H 10/13/18 03:40 Albumin/Globulin Ratio 0.6 (1.1-2.2) L 10/13/18 03:40 Procalcitonin 53.10 ng/mL (0.00-0.15) H 10/10/18 05:00 Urine Clarity Cloudy (Clear) A 10/10/18 00:42 Urine Protein >=300 mg/dL (Neg-Trace) H 10/10/18 00:42 Urine Ketones Trace mg/dL (Negative) H 10/10/18 00:42 Urine Blood Trace (Negative) H 10/10/18 00:42 Urine Bilirubin Moderate (Negative) H 10/10/18 00:42 Urine Microscopic RBC 3-5 per hpf (0-3) H 10/10/18 00:42 Urine Microscopic WBC 5-15 per hpf (0-3) H 10/10/18 00:42 Ur Squamous Epith Cells Many per lpf (None-Few) H 10/10/18 00:42 Hyaline Casts Many per lpf (None-Few) H 10/10/18 00:42 Protein/Creatinin Ratio 1.00 mg/mg (0.00-0.20) H 10/13/18 15:30 Urine Total Protein 103 mg/dL (1-14) H 10/13/18 15:30 Nasal Screen MRSA (PCR) Positive (Negative) A 10/09/18 22:59 Stl C.diff Tox A&B Gene DETECTED (Not detect) A 10/09/18 13:59 Vancomycin Trough 23 mcg/mL (5-10) H 10/12/18 03:55 Crossmatch See Detail 10/19/18 08:29 - Head Head exam: Present: atraumatic - Eye Eye exam: Present: PERRL - ENT ENT exam: Present: mucous membranes moist - Neck Neck exam: Present: tenderness - Respiratory Respiratory exam: Present: decreased breath sounds, rhonchi - Expanded Respiratory Exam Location: decreased breath sounds: Left, Right, Lower, rhonchi: Left, Right, Upper - Cardiovascular Cardiovascular exam: Present: irregular rhythm, +S1, +S2 - Expanded Cardiovascular Exam Peripheral pulses: 1+: Femoral (L) PM, Femoral (R) PM, Posterior Tibialis (L), Posterior Tibialis (R), Dorsalis Pedis (L) PM, Dorsalis Pedis (R) PM, 2+: Carotid (L) PM, Carotid (R) PM, Radial (L), Radial (R) - GI/Abdominal GI/Abdominal exam: Present: diminished bowel sounds, soft - exam: Present: normal inspection Additional comments: Vázquez intact - Extremities Exam Extremities exam: Present: pedal edema - Neurological Exam Neurological exam: Present: alert - Skin Skin exam: Present: pallor, warm Palliative Quality Palliative Quality: Screen for Code Status: Yes, Screen for Goals of Care: Yes, Screen for Pain: Yes, Screen for Nausea/Vomitting: Yes Code Status: 10/09/18 20:50 CODE [Resuscitation Status: Active] [RES] Routine Comment: Resuscitation Status: Full Code - Labs CBC & Chem 7: 10/20/18 04:24 10/20/18 04:24 Labs: Laboratory Results - last 24 hr 10/19/18 10/19/18 10/19/18 07:31 11:56 17:27 WBC RBC Hgb Hct MCV MCH MCHC RDW Plt Count MPV Immature Gran % Seg Neutrophils % Lymphocytes % Monocytes % Eosinophils % Basophils % Neutrophils # Lymphocytes # Monocytes # Eosinophils # Basophils # Platelet Estimate Immature Plt Fraction Sodium Potassium Chloride Carbon Dioxide BUN Creatinine Est GFR ( Amer) Est GFR (Non-Af Amer) BUN/Creatinine Ratio Glucose POC Glucose 108 H 152 H 193 H Calculated Osmolality Calcium Phosphorus Magnesium 10/19/18 10/20/18 10/20/18 23:50 04:24 04:24 WBC 5.3 RBC 3.04 L Hgb 8.8 L Hct 28.3 L MCV 93.1 MCH 28.9 MCHC 31.1 L RDW 17.2 H Plt Count 90 L MPV 11.1 Immature Gran % 1.9 Seg Neutrophils % 56.6 Lymphocytes % 26.0 Monocytes % 11.1 Eosinophils % 4.0 Basophils % 0.4 Neutrophils # 3.0 Lymphocytes # 1.4 Monocytes # 0.6 Eosinophils # 0.2 Basophils # 0.0 Platelet Estimate Decreased L Immature Plt Fraction 3.9 Sodium 138 Potassium 4.5 Chloride 110 H Carbon Dioxide 19 L BUN 46 H Creatinine 2.68 H Est GFR ( Amer) 29 L Est GFR (Non-Af Amer) 24 L BUN/Creatinine Ratio 17 Glucose 104 POC Glucose 133 H Calculated Osmolality 298 Calcium 7.8 L Phosphorus 3.3 Magnesium 2.1 - ABG Interpretation ABG results: ABG ABG pH 7.39 pH Units (7.32-7.45) 10/15/18 04:24 ABG pCO2 36 mmHg (35-45) 10/15/18 04:24 ABG pO2 100 mmHg (85-104) 10/15/18 04:24 ABG O2 Saturation 98 % (95-98) 10/15/18 04:24 PT/INR, D-dimer PT 15.9 Seconds (9.4-12.1) H 10/13/18 03:40 Consult Discharge Plan - Plan Referrals: NONE,PCP [Primary Care Provider] -
--- NOTE | 2018-10-20 13:52 | Internal Med Progress Note ---
<Rohith Faust - Last Filed: 10/20/18 17:42> Hospitalist Progress Note - Encounter Date of Encounter: 10/20/18 - Exam Vitals: Temp Pulse Resp BP Pulse Ox 97.5 F L 58 18 120/76 99 10/20/18 16:28 10/20/18 16:00 10/20/18 16:00 10/20/18 16:00 10/20/18 16:00 - Assessment and Plan (1) Congestive heart failure Current Visit: No Status: Acute (2) Allergy to multiple antibiotics Current Visit: Yes Status: Acute (3) NSTEMI (non-ST elevated myocardial infarction) Current Visit: Yes Status: Acute (4) CKD (chronic kidney disease) stage 3, GFR 30-59 ml/min Current Visit: Yes Status: Acute (5) C. difficile diarrhea Current Visit: Yes Status: Acute (6) DM type 2 (diabetes mellitus, type 2) Current Visit: Yes Status: Chronic (7) Shock Current Visit: Yes Status: Resolved (8) Pneumonia Current Visit: Yes Status: Suspected (9) Venous stasis dermatitis of right lower extremity Current Visit: Yes Status: Acute (10) Metabolic encephalopathy Current Visit: Yes Status: Acute (11) Acute respiratory failure Current Visit: Yes Status: Acute - Time Spent with Patient Total time spent is greater than 50% in coordination of care (as documented) at patient's floor/unit and/or counseling patient: Internal Medicine: Result - Labs CBC & Chem 7: 10/20/18 04:24 10/20/18 04:24 Labs: Short CBC 10/20/18 Range/Units 04:24 WBC 5.3 (4.3-11.1) K/mcL Hgb 8.8 L (12.9-16.9) g/dL Hct 28.3 L (37.5-50.1) % Plt Count 90 L (140-400) K/mcL Neutrophils # 3.0 (1.6-8.9) K/mcL BMP 10/20/18 04:24 Sodium 138 Potassium 4.5 Chloride 110 H Carbon Dioxide 19 L BUN 46 H Creatinine 2.68 H Glucose 104 Calcium 7.8 L - ABG Interpretation ABG results: ABG ABG pH 7.39 pH Units (7.32-7.45) 10/15/18 04:24 ABG pCO2 36 mmHg (35-45) 10/15/18 04:24 ABG pO2 100 mmHg (85-104) 10/15/18 04:24 ABG O2 Saturation 98 % (95-98) 10/15/18 04:24 PT/INR, D-dimer PT 15.9 Seconds (9.4-12.1) H 10/13/18 03:40 - Impressions Impressions Retroperitoneum Ultrasound 10/20/18 13:00 IMPRESSION: 1. Unremarkable ultrasound of the kidneys. No obstructive uropathy. 2. Fluid-filled urinary bladder. The patient has a Vázquez catheter, however the Vázquez catheter balloon is not seen. Clinical correlation recommended. D/ / Rosalind Yun MD / Rosalind Yun MD Interpreting Provider: Rosalind Yun MD Consult Discharge Plan - Plan Referrals: NONE,PCP [Primary Care Provider] - - Attending Attestation I examined this patient and my medical decision-making was reviewed with the Resident Physician on 10/20/18. I agree with the documented findings, disposition and treatment plan as described except to the extent set forth below. Mr Sanford is currently admitted for acute C diff colitis, resp failure and acute encephalopathy. He remains moderate to high risk due to potential for worsening clinical and respiratory status. Mr Sanford is awake and interactive. Denies pain or difficulty breathing. No fever at this time. Exam: Alert. Comfortable. NC. Mucus membranes dry. Neck supple. Heart distant and jean carlos. Decreased breath sounds with no wheeze. Abd soft and nontender. Edema present. No rash. Plan: Continue bipap intermittently. Complete abx course. Diuresing for systolic heart failure. Renal function about the same. Transferring to . wishes patient to remain full code. <Jason Cardenas - Last Filed: 10/21/18 05:21> Hospitalist Progress Note - Encounter Date of Encounter: 10/21/18 Time of Encounter: 09:00 - Subjective Interval History: Patient seen and examined at bedside. Slightly more alert and oriented than what it appears patient has been over the weekened. Opens eyes spontaneously, answers questions with yes/no/one word answers. Reports no current pain, denies SOB. Extubation day 3, currently maintaining SpO2 >90% on 3 L NC. spoke with integration specialist this afternoon, again restated desire for patient to remain full code despite patients poor medical prognosis. Will continue aggressive medical management at this time. Patient to be moved to ICU Step Down today. Nephro recommends continuing mild diuresis, ID to continue Cefepime, Oral Vancomycin, IV flagyl as coverage for patients severe C.Diff colitis in addition to PNA. - Exam Vitals: Temp Pulse Resp BP Pulse Ox 97.3 F L 58 20 115/61 93 10/20/18 12:08 10/20/18 11:00 10/20/18 11:09 10/20/18 08:00 10/20/18 11:09 Exam: General: Not in acute distress at this time, a and O 2 Head: Atraumatic, normocephalic Eyes: Spontaneously opens eyes, EOMI, anicteric ENT: Mucous membranes dry, oropharynx clear Neck: Soft, supple, no nuchal rigidity CV: Rhythm regular, bradycardic, normal S1, S2 no murmurs Respiratory: Coarse breath sounds bilaterally, poor inspiratory effort, rales and rhonchi noted diffusely Abdomen: Soft, nontender, nonrigid, no rebound tenderness Extremities: Left BKA noted, patient is edematous bilaterally, evidence of venous stasis dermatitis in the right - Assessment and Plan (1) C. difficile colitis Current Visit: Yes Status: Acute Assessment and Plan: Patient was treated back in June for C. difficile Transferred from [facility] secondary to profound diarrhea, presumed C. difficile Stool C. difficile toxin a&b positive On admission, patients vitals significant for respiratory rate 27 White blood count was 15.7 with a significant bandemia Has been afebrile since admission Repeat white blood count down to 5.3 CT abdomen did show thickening of the sigmoid colon, no evidence of toxic megacolon Infectious disease following, appreciate recommendations We will continue with oral vancomycin, plan for 6 weeks We will continue IV Flagyl (2) Acute exacerbation of CHF (congestive heart failure) Current Visit: Yes Status: Acute Assessment and Plan: Patient presented from [facility] in acute decompensation secondary to NSTEMI Echo showed an ejection fraction of 25%, previously 60-65% back in May Patient is significantly fluid overloaded on physical exam Chest x-ray does reveal pulmonary edema patient has an GILES, trending downward We will continue with Bumex twice a day plus metolazone Continue BiPAP as needed for respiratory distress (3) NSTEMI (non-ST elevated myocardial infarction) Current Visit: Yes Status: Acute Assessment and Plan: Patient suffered NSTEMI Troponin elevated to 30 upon arrival Urgent L HC performed, stent placed Started on dual antiplatelet therapy Unable to tolerate beta blockers secondary to hypertension Has an allergy to statin Cardiology following, appreciate recommendations (4) GILES (acute kidney injury) Current Visit: No Status: Acute Assessment and Plan: Nephrology Following, appreciate Recomendations Borderline low Urine Output, non-oliguric 2/2 sepsis vs HFrEF, ATN Continue Bumex and Oxymetolazone Creatine downtrending, continue to follow (5) Pneumonia Current Visit: Yes Status: Suspected Assessment and Plan: Chest x-ray October 15 showed a consolidation Most likely pleural effusions however pneumonia cannot be ruled Procalcitonin was elevated to 53 during admission Repeat CXR 10/14 showed improvement in bibasilar atelectasis vs PNA Patient respiratory status is stable since extubation Oxygen saturation is stable currently on 3L Diffuse wheezes present on Physical exam currently day 11 of cefepime ID following (6) Altered mental status Current Visit: Yes Status: Acute Assessment and Plan: Patient was profoundly altered over the weekend Mental status has improved as of today, currently a and O 3 Was likely multifactorial Patient had sepsis, was intubated and on sedation, also with an GILES ICU delirium also likely contributing Patient moved to ICU stepdown today continue to monitor mental status Continue antibiotics Continue diuresis (7) DM type 2 (diabetes mellitus, type 2) Current Visit: Yes Status: Chronic Assessment and Plan: Known history type 2 diabetes Blood sugars have been mostly stable during admission Patient has poor oral intake Currently on Q6hr low-dose SSI (8) Hypertension Current Visit: Yes Status: Chronic Assessment and Plan: Patient has suffered hypotension during admission Does have a known history of hypertension We will continue to monitor vitals closely We will resume home medications as indicated - Time Spent with Patient Total time spent is greater than 50% in coordination of care (as documented) at patient's floor/unit and/or counseling patient: Internal Medicine: Result - Labs CBC & Chem 7: 10/20/18 04:24 10/20/18 04:24 Labs: Short CBC 10/20/18 Range/Units 04:24 WBC 5.3 (4.3-11.1) K/mcL Hgb 8.8 L (12.9-16.9) g/dL Hct 28.3 L (37.5-50.1) % Plt Count 90 L (140-400) K/mcL Neutrophils # 3.0 (1.6-8.9) K/mcL BMP 10/20/18 04:24 Sodium 138 Potassium 4.5 Chloride 110 H Carbon Dioxide 19 L BUN 46 H Creatinine 2.68 H Glucose 104 Calcium 7.8 L - ABG Interpretation ABG results: ABG ABG pH 7.39 pH Units (7.32-7.45) 10/15/18 04:24 ABG pCO2 36 mmHg (35-45) 10/15/18 04:24 ABG pO2 100 mmHg (85-104) 10/15/18 04:24 ABG O2 Saturation 98 % (95-98) 10/15/18 04:24 PT/INR, D-dimer PT 15.9 Seconds (9.4-12.1) H 10/13/18 03:40 - Impressions Impressions Retroperitoneum Ultrasound 10/20/18 13:00 IMPRESSION: 1. Unremarkable ultrasound of the kidneys. No obstructive uropathy. 2. Fluid-filled urinary bladder. The patient has a Vázquez catheter, however the Vázquez catheter balloon is not seen. Clinical correlation recommended. D/ / Rosalind Yun MD / Rosalind Yun MD Interpreting Provider: Rosalind Yun MD <GovindRohith Bailey - Last Filed: 10/20/18 17:42> (1) Congestive heart failure Qualifiers: Heart failure type: systolic Heart failure chronicity: acute on chronic Qualified Code(s): I50.23 - Acute on chronic systolic (congestive) heart failure (6) DM type 2 (diabetes mellitus, type 2) Qualifiers: Diabetes mellitus rat exterminator insulin use: without rat exterminator use Diabetes mellitus complication status: with skin complications Diabetes mellitus complication detail: with foot ulcer Qualified Code(s): E11.621 - Type 2 diabetes mellitus with foot ulcer; L97.509 - Non-pressure chronic ulcer of other part of unspecified foot with unspecified severity (8) Pneumonia Qualifiers: Pneumonia type: aspiration pneumonia Laterality: left Lung location: unspecified part of lung Qualified Code(s): J69.0 - Pneumonitis due to inhalation of food and vomit (11) Acute respiratory failure Qualifiers: Respiratory failure complication: hypoxia Qualified Code(s): J96.01 - Acute respiratory failure with hypoxia <Jason Cardenas - Last Filed: 10/21/18 05:21> (2) Acute exacerbation of CHF (congestive heart failure) Qualifiers: Heart failure type: systolic Qualified Code(s): I50.23 - Acute on chronic systolic (congestive) heart failure (5) Pneumonia Qualifiers: Pneumonia type: aspiration pneumonia Laterality: left Lung location: unspecified part of lung (6) Altered mental status Qualifiers: Altered mental status type: unspecified Qualified Code(s): R41.82 - Altered mental status, unspecified (7) DM type 2 (diabetes mellitus, type 2) Qualifiers: Diabetes mellitus rat exterminator insulin use: without detention use Diabetes mellitus complication status: with skin complications Diabetes mellitus complication detail: with foot ulcer Qualified Code(s): E11.621 - Type 2 diabetes mellitus with foot ulcer; L97.509 - Non-pressure chronic ulcer of other part of unspecified foot with unspecified severity (8) Hypertension Qualifiers: Hypertension type: essential hypertension Qualified Code(s): I10 - Essential (primary) hypertension
[2018-10-20] MEDS: *HR* FentaNYL (PF) 100 MCG/2 ML VIAL IVP PRN (21:13)
[2018-10-20] MEDS: *HR* LORazepam 2 MG/ML VIAL IVP PRN (23:52)
[2018-10-21] MEDS: Ipratropium/Albuterol Neb 3 ML IH SCH ×5 (03:14→20:05)
--- NOTE | 2018-10-21 05:22 | Internal Med Progress Note ---
<Rohith Faust - Last Filed: 10/21/18 13:10> Hospitalist Progress Note - Encounter Date of Encounter: 10/21/18 - Exam Vitals: Temp Pulse Resp BP Pulse Ox 98.6 F 65 24 131/59 98 10/21/18 11:38 10/21/18 11:38 10/21/18 11:38 10/21/18 11:38 10/21/18 11:38 - Assessment and Plan (1) Congestive heart failure Current Visit: No Status: Acute (2) Allergy to multiple antibiotics Current Visit: Yes Status: Acute (3) NSTEMI (non-ST elevated myocardial infarction) Current Visit: Yes Status: Acute (4) CKD (chronic kidney disease) stage 3, GFR 30-59 ml/min Current Visit: Yes Status: Acute (5) C. difficile diarrhea Current Visit: Yes Status: Acute (6) DM type 2 (diabetes mellitus, type 2) Current Visit: Yes Status: Chronic (7) Shock Current Visit: Yes Status: Resolved (8) Pneumonia Current Visit: Yes Status: Suspected (9) Venous stasis dermatitis of right lower extremity Current Visit: Yes Status: Acute (10) Metabolic encephalopathy Current Visit: Yes Status: Acute - Time Spent with Patient Total time spent is greater than 50% in coordination of care (as documented) at patient's floor/unit and/or counseling patient: Internal Medicine: Result - Labs CBC & Chem 7: 10/21/18 06:38 10/21/18 06:38 Labs: Short CBC 10/21/18 Range/Units 06:38 WBC 4.3 (4.3-11.1) K/mcL Hgb 8.7 L (12.9-16.9) g/dL Hct 27.4 L (37.5-50.1) % Plt Count 84 L (140-400) K/mcL Neutrophils # 2.5 (1.6-8.9) K/mcL BMP 10/21/18 06:38 Sodium 138 Potassium 4.3 Chloride 109 H Carbon Dioxide 22 L BUN 47 H Creatinine 2.57 H Glucose 97 Calcium 8.0 L - ABG Interpretation ABG results: ABG ABG pH 7.39 pH Units (7.32-7.45) 10/15/18 04:24 ABG pCO2 36 mmHg (35-45) 10/15/18 04:24 ABG pO2 100 mmHg (85-104) 10/15/18 04:24 ABG O2 Saturation 98 % (95-98) 10/15/18 04:24 PT/INR, D-dimer PT 15.9 Seconds (9.4-12.1) H 10/13/18 03:40 - Impressions Impressions Retroperitoneum Ultrasound 10/20/18 13:00 IMPRESSION: 1. Unremarkable ultrasound of the kidneys. No obstructive uropathy. 2. Fluid-filled urinary bladder. The patient has a Vázquez catheter, however the Vázquez catheter balloon is not seen. Clinical correlation recommended. D/ / Rosalind Yun MD / Rosalind Yun MD Interpreting Provider: Rosalind Yun MD Consult Discharge Plan - Plan Additional Instructions: Follow up in wound care 1 week s/p discharge with Dr. Herrera Cleanse right foot with warm water and soap daily. Cover ulcer with calcium alginate, 4x4 dry gauze, and kerlix. Secure with medipore tape. Referrals: Antonio Savage, JOB PLACEMENT SPECIALIST [Advanced Practice Nurse] - (office will call patient at home with follow up appointment) Davion Ruelas DO [Partnered Physician] - 10/29/18 1:00 pm - Attending Attestation I examined this patient and my medical decision-making was reviewed with the Resident Physician on 10/21/18. I agree with the documented findings, disposition and treatment plan as described except to the extent set forth kate key. Mr Sanford is currently admitted for resp and renal failure and NSTEMI. He remain s moderate to high risk due to potential for worsening respiratory and cardiac status. Mr Sanford is on bipap. He has been off for some periods to eat. No fever. No new GI issues. Exam: Alert. Comfortable on bipap. Mucus membranes moist. NC. Neck supple. Heart jean carlos and irreg. Rhonchi anteriorly. Abd soft. Edema present. No rash. Plan: Continue diuresis and respiratory support. He is to remain full code. Appreciate property consultant input. Jason Daniel - Last Filed: 10/21/18 14:54> Hospitalist Progress Note - Encounter Date of Encounter: 10/21/18 Time of Encounter: 10:00 - Subjective Interval History: The patient was seen and examined at bedside this morning. Patient was on BiPAP, tolerating well. The patient did report that he feels his respiratory status has worsened since yesterday. SPO2 readings per chart review have been normal, however during conversation with patient this morning they did drop to 80s while on BiPAP. Patient reports pain in his lower back secondary to pressure sore, this is not a new problem for the patient, wound care is following. The patient is currently day 12 of cefepime. Continue pulsed taper of thank, Flagyl for C. difficile diarrhea. Diarrhea has significantly improved. Patient remains thrombocytopenic, however due to significant risk of DVT we are continuing heparin at this time, will discontinue if platelet count drops below 50,000. Patient's blood pressure remains adequate, heart rate shows bradycardia with slow A. fib. Remains significantly fluid overloaded, we will continue to diurese with Bumex per nephrology recommendations, creatinine improving. - Exam Vitals: Temp Pulse Resp BP Pulse Ox 98.3 F 63 22 119/55 92 10/21/18 04:41 10/21/18 04:41 10/21/18 04:41 10/21/18 04:41 10/21/18 04:41 Exam: General: Not in acute distress at this time, a and O 2 Head: Atraumatic, normocephalic Eyes: Spontaneously opens eyes, EOMI, anicteric ENT: Mucous membranes dry, oropharynx clear Neck: Soft, supple, no nuchal rigidity CV: Rhythm regular, bradycardic, normal S1, S2 no murmurs Respiratory: Coarse breath sounds bilaterally, poor inspiratory effort, rales and rhonchi noted diffusely Abdomen: Soft, nontender, nonrigid, no rebound tenderness Extremities: Left BKA noted, patient is edematous bilaterally, evidence of venous stasis dermatitis in the right - Assessment and Plan (1) C. difficile colitis Current Visit: Yes Status: Acute Assessment and Plan: Patient was treated back in June for C. difficile Transferred from [facility] secondary to profound diarrhea, presumed C. difficile Stool C. difficile toxin a&b positive On admission, patients vitals significant for respiratory rate 27 White blood count was 15.7 with a significant bandemia Has been afebrile since admission Repeat white blood count down to 5.3 CT abdomen did show thickening of the sigmoid colon, no evidence of toxic megacolon Infectious disease following, appreciate recommendations Plan: We will continue with oral vancomycin, plan for 6 weeks We will continue IV Flagyl (2) NSTEMI (non-ST elevated myocardial infarction) Current Visit: Yes Status: Acute Assessment and Plan: Patient presented with NSTEMI Troponins elevated up to 30 during admission Urgent LHC performed with stent placement DAPT initiated, has an allergy to Statin, no BB 2/2 hypotension Cardiology was following, has since signed off No chest pains currently Telemetry shows slow A.Fib Plan: Will order EKG Continuous telemetry (3) Acute on chronic kidney failure Current Visit: Yes Status: Acute Assessment and Plan: Known history of CKD 3 Baseline Cr 1.5 Developed an GILES during admission Highest Cr 2.97 Has had significantly decreased UOP Has been downtrending since then 2.57 today Nephrology following, Appreciate Recs Plan: Continue to Diurese, on Bumex Continue to trend BUN/Cr. Continue to monitor UOP (4) Acute decompensated heart failure Current Visit: Yes Status: Acute Assessment and Plan: Patient with history of diastolic heart failure, preserved ejection fraction Echo from May 2018 showed EF 60-65% Repeat echo this admission: EF 25% Acute decompensation likely secondary to NSTEMI Patient remained significantly fluid overloaded secondary to new systolic heart failure in addition to acute on chronic kidney failure Patient had pulmonary edema on chest x-ray, repeat chest x-ray shows impr ovement Continue BiPAP. Continue diuresis Consider repeat chest x-ray in the future (5) Pneumonia Current Visit: Yes Status: Suspected Assessment and Plan: CXR 10/15 showed consolidation Suspected to be pleural efusion but PNA cant be ruled out Procalcitonin was elevated to 53 during admission Repeat CXR showed improvement in bibasilar atelectasis vs PNA Patient respiratory status is stable since extubation Oxygen saturation is stable today on BiPap Diffuse wheezes present on Physical exam currently day 12 of cefepime ID following, appreciate Recs (6) Thrombocytopenia Current Visit: Yes Status: Acute Assessment and Plan: Plt count 134 on admission Has been steadily declining Lowest reading 71 Up to 84 today Significant DVT Risk Plan: Continue Heparin for now D/C if Plt Count drops below 50 (7) PVD (peripheral vascular disease) Current Visit: No Status: Chronic Assessment and Plan: Patient has a known history of PVD S/P Left BKA Currently has Venous stasis dermatitis with ulceration of right leg Ulcer dressing c/d/I Plan: Continue would care Continue compression boot Continue diuresis (8) DM type 2 (diabetes mellitus, type 2) Current Visit: Yes Status: Chronic Assessment and Plan: Known history of T2DM Sugars stable since admission Q6hr low dose SSI (9) Hypertension Current Visit: Yes Status: Chronic Assessment and Plan: Patient does have a known history of HTN Home BP meds still on hold 2/2 hypotension BP has been stable since off Pressors Plan: Continue to monitor BP May restart BP meds if gets Hypertensive DVT Prophylaxis: SubQ Heparin - Time Spent with Patient Total time spent is greater than 50% in coordination of care (as documented) at patient's floor/unit and/or counseling patient: Internal Medicine: Result - Labs CBC & Chem 7: 10/21/18 06:38 10/21/18 06:38 - ABG Interpretation ABG results: ABG ABG pH 7.39 pH Units (7.32-7.45) 10/15/18 04:24 ABG pCO2 36 mmHg (35-45) 10/15/18 04:24 ABG pO2 100 mmHg (85-104) 10/15/18 04:24 ABG O2 Saturation 98 % (95-98) 10/15/18 04:24 PT/INR, D-dimer PT 15.9 Seconds (9.4-12.1) H 10/13/18 03:40 - Impressions Impressions Retroperitoneum Ultrasound 10/20/18 13:00 IMPRESSION: 1. Unremarkable ultrasound of the kidneys. No obstructive uropathy. 2. Fluid-filled urinary bladder. The patient has a Vázquez catheter, however the Vázquez catheter balloon is not seen. Clinical correlation recommended. D/ / Rosalind Yun MD / Rosalind Yun MD Interpreting Provider: Rosalind Yun MD <Rohith Faust A - Last Filed: 10/21/18 13:10> (1) Congestive heart failure Qualifiers: Heart failure type: systolic Heart failure chronicity: acute on chronic Qualified Code(s): I50.23 - Acute on chronic systolic (congestive) heart failure (6) DM type 2 (diabetes mellitus, type 2) Qualifiers: Diabetes mellitus retirement insulin use: without manager intermediate use Diabetes mellitus complication status: with skin complications Diabetes mellitus complication detail: with foot ulcer Qualified Code(s): E11.621 - Type 2 diabetes mellitus with foot ulcer; L97.509 - Non-pressure chronic ulcer of other part of unspecified foot with unspecified severity (8) Pneumonia Qualifiers: Pneumonia type: aspiration pneumonia Laterality: left Lung location: unspecified part of lung <Jason Cardenas - Last Filed: 10/21/18 14:54> (3) Acute on chronic kidney failure Qualifiers: Acute renal failure type: unspecified Chronic kidney disease stage: stage 3 (moderate) Qualified Code(s): N17.9 - Acute kidney failure, unspecified; N18.3 - Chronic kidney disease, stage 3 (moderate) (5) Pneumonia Qualifiers: Pneumonia type: aspiration pneumonia Laterality: left Lung location: unspecified part of lung (8) DM type 2 (diabetes mellitus, type 2) Qualifiers: Diabetes mellitus manager intermediate insulin use: without manager intermediate use Diabetes mellitus complication status: with skin complications Diabetes mellitus complication detail: with foot ulcer Qualified Code(s): E11.621 - Type 2 diabetes mellitus with foot ulcer; L97.509 - Non-pressure chronic ulcer of other part of unspecified foot with unspecified severity (9) Hypertension Qualifiers: Hypertension type: essential hypertension Qualified Code(s): I10 - Essential (primary) hypertension
[2018-10-21] MEDS: *HR* FentaNYL (PF) 100 MCG/2 ML VIAL IVP PRN ×4 (05:34→23:10)
[2018-10-21] MEDS: Insulin LISPRO 300 UNITS/3 ML VIAL SQ SCH ×4 (06:16→23:55)
[2018-10-21] MEDS: *HR* Heparin 5,000 UNIT/ML VIAL SQ SCH ×3 (06:20→21:47)
[2018-10-21 07:21] LABS: Basophils % 0.5 %; Red Blood Count 2.94 M/mcL (4.19-5.50)
[2018-10-21 07:23] LABS: Eosinophils # 0.2 K/mcL (0.0-0.6); Eosinophils % 4.8 %; Hematocrit 27.4 % (37.5-50.1); Hemoglobin 8.7 g/dL (12.9-16.9); Immature Granulocytes % 1.4 % (0-4); Immature Platelets 4.4 % (1.1-6.1); Lymphocytes % 23.6 %; Mean Corpuscular HGB Conc 31.8 g/dL (31.6-35.5); Mean Corpuscular Hemoglobin 29.6 pg (28.0-33.3); Mean Corpuscular Volume 93.2 fL (83.0-100.0); Mean Platelet Volume 11.2 fL (9.4-12.4); Monocytes # 0.5 K/mcL (0.0-1.3); Monocytes % 11.8 %; Neutrophils # 2.5 K/mcL (1.6-8.9); Segmented Neutrophils % 57.9 %; White Blood Count 4.3 K/mcL (4.3-11.1)
[2018-10-21 07:35] LABS: Platelet Count 84 K/mcL (140-400)
[2018-10-21] MEDS: Budesonide/Formoterol 160/4.5 1 PUFF INH IH SCH ×2 (07:37→20:05)
[2018-10-21 07:44] LABS: Magnesium 2.1 mg/dL (1.6-2.6); Phosphorous 3.9 mg/dL (2.7-4.5); Potassium 4.3 mEq/L (3.5-5.1)
[2018-10-21] MEDS: Cefepime HCl 1,000 MG in Water for inj. (sterile) 20 ML IVP SCH (08:19)
[2018-10-21] MEDS: Bumetanide 1 MG/4 ML VIAL IVP SCH ×2 (08:19→16:24)
[2018-10-21] MEDS: MetroNIDAZOLE 500 MG/100 ML 500 MG/100 ML BAG IVPB SCH ×3 (08:20→23:06)
[2018-10-21] MEDS: hydrALAZINE 25 MG TABLET PO SCH ×3 (08:20→22:47)
[2018-10-21] MEDS: Aspirin 81 MG TAB.CHEW PO SCH (08:20)
[2018-10-21] MEDS: Famotidine 20 MG/2 ML VIAL IVP SCH (08:20)
[2018-10-21] MEDS: metOLazone 5 MG TABLET PO SCH (08:20)
--- NOTE | 2018-10-21 09:57 | Nephrology Progress Note ---
Date of Encounter: 10/21/18 Time of Encounter: 09:05 - Assessment and Plan (1) Acute on chronic kidney failure Current Visit: Yes Status: Acute Stable renal function and to continue his diuretics, which he appears to be tolerating. He does not have urgent indications for RADIO PROGRAM CHECKER today. Consistent with non-oliguric GILES. The most likely etiology: Sepsis, low ejection fraction, hemodynamics, probable ATN and even Cardiorenal syndrome as he has improved since starting diuretics over the last weekend. I recommend a renal protective/conservative strategy by avoiding nephrotoxic agents as able, strict I's and O's, daily weights, renal diet when able, and r enal dosing. Thank you Qualifiers: Acute renal failure type: unspecified Chronic kidney disease stage: stage 3 (moderate) Qualified Code(s): N17.9 - Acute kidney failure, unspecified; N18.3 - Chronic kidney disease, stage 3 (moderate) (2) Anemia Current Visit: Yes Status: Chronic Qualifiers: Anemia type: due to chronic kidney disease Chronic kidney disease stage: stage 3 (moderate) Qualified Code(s): N18.3 - Chronic kidney disease, stage 3 (moderate); D63.1 - Anemia in chronic kidney disease (3) Hypertension Current Visit: Yes Status: Chronic Qualifiers: Hypertension type: essential hypertension Qualified Code(s): I10 - Essent ial (primary) hypertension (4) Acute exacerbation of CHF (congestive heart failure) Current Visit: Yes Status: Acute Qualifiers: Heart failure type: systolic Qualified Code(s): I50.23 - Acute on chronic systolic (congestive) heart failure (5) Acute HI Current Visit: Yes Status: Acute Qualifiers: Myocardial infarction type: unspecified Involved coronary artery: unspecified coronary artery Qualified Code(s): I21.9 - Acute myocardial infarction, unspecified (6) DM type 2 (diabetes mellitus, type 2) Current Visit: Yes Status: Chronic Qualifiers: Diabetes mellitus mcc insulin use: without mcc use Diabetes mellitus complication status: with skin complications Diabetes mellitus complication detail: with foot ulcer Qualified Code(s): E11.621 - Type 2 diabetes mellitus with foot ulcer; L97.509 - Non-pressure chronic ulcer of other part of unspecified foot with unspecified severity Subjective Principal diagnosis: CHF, AMI, C-Diff, GILES Interval history: The patient was briefly s/e earlier today, and he was transferred out of the ICU overnight to , and he has not been reintubated or acute events noted overnight. Objective - Vital Signs Vital signs: Vital Signs Temp Pulse Resp BP Pulse Ox 10/21/18 07:58 98.4 F 69 23 137/77 98 10/21/18 07:37 18 119/55 99 10/21/18 04:41 98.3 F 63 22 119/55 92 10/21/18 03:16 34 98 10/21/18 01:00 67 10/20/18 23:58 98.0 F 65 28 131/57 98 10/20/18 23:20 20 98 10/20/18 20:15 98.1 F 10/20/18 19:30 20 99 10/20/18 18:25 59 20 130/85 98 10/20/18 16:28 97.5 F L 10/20/18 16:00 58 18 120/76 99 10/20/18 15:30 18 114/56 94 10/20/18 15:00 56 10/20/18 14:00 62 18 114/56 94 10/20/18 12:08 97.3 F L 10/20/18 11:09 20 93 10/20/18 11:00 58 10/20/18 10:00 60 20 93 Intake and Output 10/20/18 10/21/18 10/21/18 23:59 07:59 15:59 Intake Total 100 / 320 100 / 100 Output Total 250 / 625 200 / 200 Balance -150 / -305 -100 / -100 Intake: IV Fluids 100 / 320 100 / 100 Flagyl Premix 500 MG/100 ML 500 100 / 300 100 / 100 mg In 100 ml @ 100 mls/hr IVPB Q8HR [facility] Rx#:[id number] Output: Catheter 250 / 625 200 / 200 Urethral (Vázquez) 0 / 0 Other: Blood Glucose* 117 106 - General Appearance General appearance: Present: moderate distress, fatigue, frail Exam: He appeared comfortable in no acute distress - Lab 10/21/18 06:38 10/21/18 06:38 Most recent lab results 10/21/18 06:38 Calcium 8.0 L Phosphorus 3.9 Magnesium 2.1 Consult Discharge Plan - Plan Referrals: NONE,PCP [Primary Care Provider] -
--- NOTE | 2018-10-21 10:27 | Infectious Disease Progress No ---
ID Progress Note Date of Encounter: 10/21/18 Time of Encounter: 12:53 - Subjective Subjective: Patient is seen and examined at the bedside. He has been stepped down from the ICU . He is more alert than when I saw him on Saturday, had the BiPAP on. He is A&O*3, moving his extremities, clear speech and responds to question in an appropriate manner. He continues to be afebrile and is not leukocytotic, currently on 3 L of nasal cannula satting at 93%. Patient continues to have nonoliguric GILES with Cr of 2.66. He is currently on day 12 of IV 500MG q8h Flagyl, day 12 of IV 1 g q24h cefepime, currently on day 12 of 125 mg PO Vancomycin. - Objective CBC & Chem 7: 10/21/18 06:38 10/21/18 06:38 - Exam Vitals: Temp Pulse Resp BP Pulse Ox 98.4 F 69 23 137/77 98 10/21/18 07:58 10/21/18 07:58 10/21/18 07:58 10/21/18 07:58 10/21/18 07:58 Exam: Gen.: Vitals noted. No acute distress. A&O*3. On BiPAP HEENT: oropharynx clear, Normocephalic, atraumatic, MMM Neck: supple, no JVD, no lymphadenopathy, no carotid bruit. Cardiac: RRR, no murmur, +S1/S2, No BLE edema, PMI non-displaced Pulmonary: bilateral wheezing, no rales or rhonchi, equal chest expansion Abdomen: soft, nontender, BS noted, no guarding, undistended. No organomegaly, no pulsatile masses, Skin: R leg cellulites drapped in bandage, warm and dry Extremities: Left leg amputated, venous stasis of the R leg drapped in Bolivar Wrap MSK: ROM not assessed. no joint swelling noted, gait not assessed while in bed. Non tender calf or clubbing, no cyanosis/clubbing/ or edema Neuro: A&O, moves all extremities, no focal deficits, sensation intact - Assessment and Plan (1) Metabolic encephalopathy Current Visit: Yes Status: Acute - Seems to have improved since the last time I saw him. Has been stepped down from the ICU to 2N - was likely multifactorial due to sepsis , with GILES , s/p intubation and discontinuation of versed. Patient also had hydrostatic pulmonary edema with a reduced EF of 25 % which is unchanged from his previous Echo. -patient is A*O to person, place and time. -continue Abx , continue on Bumex 1 mg IV BID. SNOMED Code(s): 03065290 (2) Shock Current Visit: Yes Status: Resolved -Resolved , patient currently extubated and off pressors -Was Likely cardiogenic in nature -Patient was [facility] ICU because of diarrheal episodes for the past 2 weeks accompanied by abdominal pain -Pertinent Vitals /Labs on admission: Temp: 99.9, Pulse: 97, RR: 27, WBC: 15.7, Band neutrophils 70%, Lactate : 2.1, BNP: 2898. -Pertinent Vitals /Labs now: Temp: 97.8, Pulse: 69, RR: 14, WBC: 4.1 -He also has a right leg cellulitis- no evidence of any bleeding or serosanguineous discharge -10/09/18 Chest x-ray showed bilateral mild and lower lung airspace disease and bilateral pleural effusion with concerns for pulmonary edema -10/10/18 Abdomen /Pelvic CT revealed wall thickening of the sigmoid colon likely related to lack of distention. Correlation for colitis is recommended PLAN -Continue PO Vancomycin tapering dose through November 20 for a total of 6 weeks -Continue cefepime 2 g IV every 12 hours for a total of 10-14 days through 10/24 -Continue IV Flagyl 500mg q8h through 10/24. SNOMED Code(s): 01074701 (3) C. difficile diarrhea Current Visit: Yes Status: Acute -Patient has a history of associated diarrhea . -He was treated in the hospital in the month of June for C. difficile and was on discharged vancomycin taper. -Has been afebrile since admission, with current white blood count of 5.3 . -Stool C. difficile toxin A&B was detected . -CT abdominal pelvis did not show any evidence for toxic megacolon but there was wall thickening of the sigmoid colon -Patient had 1 watery bowel movement yesterday but not today so far. PLAN: -Continue vancomycin for 6 weeks. Tapering dose through November 20 SNOMED Code(s): 4759551741371 (4) Pneumonia Current Visit: Yes Status: Suspected Etiology unknown Procalcitonin significantly elevated at 53.1 on admission. on physical exam he has bilateral wheezes. patient on 3L satting at 93% 10/11/18: CXR Consolidation is likely pleural efusion but cannot rule out pneumonia at this time 10/14/18: CXR Improving bibasilar atelectesis or PNA Currently on day 12 of IV 500mg Flagyl, day 12 of 2gm cefepime through 10/24. PLAN: - Repeat chest x-ray -Dose adjust cefepime based on Creatinine Clearance Qualifiers: Pneumonia type: aspiration pneumonia Laterality: left Lung location: unspecified part of lung SNOMED Code(s): 586919403 (5) NSTEMI (non-ST elevated myocardial infarction) Current Visit: Yes Status: Acute Patient found to have significant elevation in his troponin with troponin less than upper limit of normal at [facility] and upon arrival to [place] was found to have troponin of 30.22 and repeat 30.47 * Echocardiogram limited was obtained which shows EF of 25% which is a significant drop from previous in 05/30/18 which had a EF of 60-65% * The patient does have a long history of cardiac disease and has undergone CABG prior * Patient underwent catheterization overnight with Dr. Velasquez and a bare metal stent was placed in the saphenous venous graft OM1 SNOMED Code(s): 83363268 (6) Congestive heart failure Current Visit: No Status: Acute - Patient has an acute decompensation of heart failure likely due to NSTEMI -Recent echocardiogram showed an EF of 25% which was a significant drop from his EF in 05/2018 when it was 60-65% -Patient has been switched from Lasix twice a day to 1 mg Bumex twice a day as per nephrology - Further management as per the ICU team Qualifiers: Heart failure type: systolic Heart failure chronicity: acute on chronic Qualified Code(s): I50.23 - Acute on chronic systolic (congestive) heart failure SNOMED Code(s): 71635643 (7) CKD (chronic kidney disease) stage 3, GFR 30-59 ml/min Current Visit: Yes Status: Acute -She has a history of CK D of a stage III -Patient has had a bump in his creatinine from 1.56 on admission to 2.42 . -Avoid nephrotoxic agent and renally dose steroids. SNOMED Code(s): 334777399 (8) Allergy to multiple antibiotics Current Visit: Yes Status: Acute Patient allergic to multiple antibiotics like Biaxin, Keflex, Levaquin, Zithromax and clindamycin SNOMED Code(s): 213078453727932 (9) DM type 2 (diabetes mellitus, type 2) Current Visit: Yes Status: Chronic Patient has a history of diabetes. Currently on low-dose sliding scale insulin Qualifiers: Diabetes mellitus assisted insulin use: without assisted use Diabetes mellitus complication status: with skin complications Diabetes mellitus complication detail: with foot ulcer Qualified Code(s): E11.621 - Type 2 diabetes mellitus with foot ulcer; L97.509 - Non-pressure chronic ulcer of other part of unspecified foot with unspecified severity SNOMED Code(s): 91493573 (10) Venous stasis dermatitis of right lower extremity Current Visit: Yes Status: Acute -Venous stasis of the right lower extremity with no evidence of any bleeding or serosangunous discharge -looks stable at baseline SNOMED Code(s): 34991005 Consult Discharge Plan - Plan Additional Instructions: Follow up in wound care 1 week s/p discharge with Dr. Herrera Cleanse right foot with warm water and soap daily. Cover ulcer with calcium alginate, 4x4 dry gauze, and kerlix. Secure with medipore tape. Referrals: Antonio Savage, DIRECTOR OF INFECTION PREVENTION [Advanced Practice Nurse] - (office will call patient at home with follow up appointment) Davion Ruelas DO [Partnered Physician] - 10/29/18 1:00 pm - Attending Attestation I examined this patient and my medical decision-making was reviewed with the Resident Physician. I agree with the documented findings, disposition and treatment plan as described except to the extent set forth below. Assessment and plan: 1. shock - cardiogenic? improved. off dopamine 2. Pneumonia - likely aspiration; improved 3. C diff colitis first recurrnece - will treat for 6 weeks with tapering dose through November 20 4. lower extremities venous stasis 5. third spacing 6. Metabolic encephalopathy Recommendations: continue cefepime and flagyl through 10/24 continue oral vanc 125q6 we will do tapering dose through November 20 Repeat CXR dose adjust cefepime based on CrCl
[2018-10-21] MEDS: Vancomycin Oral Soln 125 MG/2.5 ML UDC PO SCH ×4 (11:21→21:47)
--- NOTE | 2018-10-21 13:59 | Podiatry Progress Note ---
Date of Encounter: 10/21/18 Time of Encounter: 13:30 - Assessment and Plan (1) Right foot ulcer Current Visit: Yes Status: Chronic Assessment: Richard grade II ulceration right foot Serosanguinous drainage noted to right lateral foot No edema, or lymphangitis noted to periwound lateral right foot Minimal erythema noted to periwound Wound culture obtained Saturday10/08/18 returned group b strep and psuedomonas XR indeterminate for OM, negative for gas WBC 4.3, ESR 79, CRP 209 Plan: Local wound care orders placed Wound appears stable ID managing ATB- appreciate recommendations Follow up in wound care with Dr. Herrera 1 week s/p D/C, please make appointment prior to d/c Recommend social service consult to set up home care/home dressing changes Cleansed with 0.9 NS, covered with calcium alginate AG, covered with 4x4 dry gauze, and medipore Impression: XR/XR foot 3V RT IMPRESSION: Soft tissue swelling about the foot with great toe ulceration and subtle loss of the cortical white line of the underlying great toe distal phalangeal tuft which could indicate osteomyelitis. Soft tissue swelling about the foot could reflect edema and/or cellulitis. No soft tissue gas. D/ / Manan Powell / Manan Powell Interpreting Provider: Manan Powell Qualifiers: Non-pressure ulcer stage: limited to breakdown of skin Qualified Code(s): L97.511 - Non-pressure chronic ulcer of other part of right foot limited to breakdown of skin (2) Venous stasis dermatitis of right lower extremity Current Visit: Yes Status: Acute Assessment: Erythema noted to RLE 2/4 edema noted Xerosis noted RLE No ulceration noted Plan: Cleansed with warm water and soap Stop local wound care, leave VENDING SUPERVISOR Place lotion to right lower extremity to prevent cracking of skin Subjective Principal diagnosis: CHF, AMI, C-Diff, GILES Interval history: Patient currently on bipap machine. Able to shake head yes or no. Alert. Objective - Vital Signs Vital Signs: Vital Signs Temp Pulse Resp BP Pulse Ox 10/21/18 11:38 98.6 F 65 24 131/59 98 10/21/18 11:02 27 100 07/23/19 07:58 98.4 F 69 23 137/77 98 10/21/18 07:37 18 119/55 99 10/21/18 04:41 98.3 F 63 22 119/55 92 10/21/18 03:16 34 98 10/21/18 01:00 67 10/20/18 23:58 98.0 F 65 28 131/57 98 10/20/18 23:20 20 98 10/20/18 20:15 98.1 F 10/20/18 19:30 20 99 10/20/18 18:25 59 20 130/85 98 10/20/18 16:28 97.5 F L 10/20/18 16:00 58 18 120/76 99 10/20/18 15:30 18 114/56 94 10/20/18 15:00 56 10/20/18 14:00 62 18 114/56 94 Intake and Output 10/20/18 10/21/18 10/21/18 23:59 07:59 15:59 Intake Total 100 / 320 100 / 220 120 / 220 Output Total 250 / 625 200 / 200 Balance -150 / -305 - / 20 120 / 20 Intake: IV Fluids 100 / 320 100 / 220 120 / 220 Maxipime 1,000 MG In Water for inj. (sterile) 20 ML @ 300 mls/ hr IVP Q24H [facility] Rx#:[id number] Flagyl Premix 500 MG/100 ML 500 100 / 300 100 / 200 100 / 200 mg In 100 ml @ 100 mls/hr IVPB Q8HR [facility] Rx#:[id number] Output: Catheter 250 / 625 200 / 200 Urethral (Vázquez) 0 / 0 Other: Blood Glucose* 117 106 116 - Exam Exam: Constitiutional: Lethargic, shakes head yes or no Vascular: 1/4 DP/PT RLE, CFT <3 sec to all digits RLE, warm to warm from tibia to toes RLE, L BKA Neurologic: normal plantar response RLE Dermatologic: Richard grade II ulceration measuring 0.5 x 0.5 x 0.2 cm, sangunious drainage noted, no edema, no lymphangitis noted to right foot, erythema noted to RLE, 2/4 edema noted to RLE, xerosis of skin noted - Lab Result Diagrams: 10/21/18 06:38 10/21/18 06:38 Labs: Abnormal lab results WBC 3.8 K/mcL (4.3-11.1) L 10/19/18 05:15 RBC 2.94 M/mcL (4.19-5.50) L 10/21/18 06:38 Hgb 8.7 g/dL (12.9-16.9) L 10/21/18 06:38 Hct 27.4 % (37.5-50.1) L 10/21/18 06:38 MCHC 31.1 g/dL (31.6-35.5) L 10/20/18 04:24 RDW 17.0 % (11.5-14.5) H 10/21/18 06:38 Plt Count 84 K/mcL (140-400) L 10/21/18 06:38 Band Neutrophils % 70.0 % (0-4) H 10/09/18 22:18 Neutrophils # 9.6 K/mcL (1.6-8.9) H 10/10/18 04:00 Lymphocytes # 0.5 K/mcL (0.6-4.6) L 10/11/18 04:05 Nucleated RBCs/100 WBC 0.5 /100 WBC (0) H 10/18/18 04:00 Platelet Estimate Decreased (Normal) L 10/20/18 04:24 ESR 79 mm/hr (0-10) H 10/10/18 18:56 PT 15.9 Seconds (9.4-12.1) H 10/13/18 03:40 APTT 43.1 Seconds (26.0-36.0) H 10/13/18 03:40 Fibrinogen 465 mg/dL (169-393) H 10/10/18 17:15 Heparin Anti-Xa, Unfract 0.26 IU/mL (0.30-0.70) L 10/09/18 22:18 ABG pCO2 34 mmHg (35-45) L 10/13/18 04:36 ABG pO2 61 mmHg (85-104) L 10/14/18 05:01 ABG O2 Saturation 90 % (95-98) L 10/14/18 05:01 ABG Base Excess -3 mEq/L (-2 to 3) L 10/15/18 04:24 VBG pO2 69 mmHg (25-50) H 10/09/18 22:28 Sodium 135 mEq/L (136-145) L 10/17/18 03:33 Chloride 109 mEq/L (98-107) H 10/21/18 06:38 Carbon Dioxide 22 mEq/L (23-29) L 10/21/18 06:38 BUN 47 mg/dL (8-23) H 10/21/18 06:38 Creatinine 2.57 mg/dL (0.70-1.30) H 10/21/18 06:38 Est GFR ( Amer) 31 (> 60) L 10/21/18 06:38 Est GFR (Non-Af Amer) 25 (> 60) L 10/21/18 06:38 Glucose 120 mg/dL (70-105) H 10/18/18 04:00 POC Glucose 117 mg/dL (70-99) H 10/20/18 23:54 Calcium 8.0 mg/dL (8.6-10.3) L 10/21/18 06:38 Venous Ioniz Calcium 1.13 mmol/L (1.15-1.35) L 10/19/18 05:26 AST 66 Units/L (13-39) H 10/09/18 22:18 Lactate Dehydrogenase 286 Units/L (140-271) H 10/10/18 19:23 Troponin I 31.20 ng/mL (< 0.04) H* 10/10/18 12:00 C-Reactive Protein 209 mg/L (Less than 10) H 10/10/18 19:23 B-Natriuretic Peptide 868 pg/mL (Less than 100) H 10/09/18 22:18 Serum Total Protein 5.9 g/dL (6.4-8.9) L 10/13/18 03:40 Albumin 2.0 g/dL (3.5-5.7) L 10/14/18 03:56 Globulin 3.6 g/dL (2.4-3.5) H 10/13/18 03:40 Albumin/Globulin Ratio 0.6 (1.1-2.2) L 10/13/18 03:40 Procalcitonin 53.10 ng/mL (0.00-0.15) H 10/10/18 05:00 Urine Clarity Cloudy (Clear) A 10/10/18 00:42 Urine Protein >=300 mg/dL (Neg-Trace) H 10/10/18 00:42 Urine Ketones Trace mg/dL (Negative) H 10/10/18 00:42 Urine Blood Trace (Negative) H 10/10/18 00:42 Urine Bilirubin Moderate (Negative) H 10/10/18 00:42 Urine Microscopic RBC 3-5 per hpf (0-3) H 10/10/18 00:42 Urine Microscopic WBC 5-15 per hpf (0-3) H 10/10/18 00:42 Ur Squamous Epith Cells Many per lpf (None-Few) H 10/10/18 00:42 Hyaline Casts Many per lpf (None-Few) H 10/10/18 00:42 Protein/Creatinin Ratio 1.00 mg/mg (0.00-0.20) H 10/13/18 15:30 Urine Total Protein 103 mg/dL (1-14) H 10/13/18 15:30 Nasal Screen MRSA (PCR) Positive (Negative) A 10/09/18 22:59 Stl C.diff Tox A&B Gene DETECTED (Not detect) A 10/09/18 13:59 Vancomycin Trough 23 mcg/mL (5-10) H 10/12/18 03:55 Crossmatch See Detail 10/19/18 08:29 Consult Discharge Plan - Plan Additional Instructions: Follow up in wound care 1 week s/p discharge with Dr. Herrera Cleanse right foot with warm water and soap daily. Cover ulcer with calcium alginate, 4x4 dry gauze, and kerlix. Secure with medipore tape. Referrals: Antonio Savage, RAZOR GRINDER [Advanced Practice Nurse] - (office will call patient at home with follow up appointment) Davion Ruelas DO [Partnered Physician] - 10/29/18 1:00 pm
--- NOTE | 2018-10-21 15:12 | Palliative Progress Note ---
Date of Encounter: 10/21/18 Time of Encounter: 14:45 - Assessment and plan (1) Dyspnea Current Visit: No Status: Acute Assessment and plan: Currently tolerating Bipap HOB up Supplemental O2 Duonebs Symbicort Suction PRN - Loose cough Qualifiers: Dyspnea type: unspecified Qualified Code(s): R06.00 - Dyspnea, unspecified (2) Goals of care, counseling/discussion Current Visit: Yes Status: Acute Assessment and plan: IConducted bedside conversation with Trisha and daughter June. Family present during physical therapy. Patient actively participated. Patient renal panel stable and not requiring CRRT. Nephrology following. Renal ultrasound unremarkable. Patient FULL CODE. (3) Altered mental status Current Visit: Yes Status: Acute Assessment and plan: Multifactorial given patients multiple issues. Patient more alert with generalized weakness. Qualifiers: Altered mental status type: unspecified Qualified Code(s): R41.82 - Altered mental status, unspecified (4) Palliative care encounter Current Visit: Yes Status: Acute (5) Acute [place] Current Visit: Yes Status: Acute Assessment and plan: Patient EF 25% from 65%. Care per primary care team. Qualifiers: Myocardial infarction type: unspecified Involved coronary artery: unspecified coronary artery Qualified Code(s): I21.9 - Acute myocardial infarction, unspecified - Time Spent With Patient Total time spent is greater than 50% in coordination of care (as documented) at patient's floor/unit and/or counseling patient: - Subjective Interval history: Patient more alert today but overall generalized weakness. and daughter at bedside. Patient on Bipap. - Constitutional Vitals: Abnormal lab results WBC 3.8 K/mcL (4.3-11.1) L 10/19/18 05:15 RBC 2.94 M/mcL (4.19-5.50) L 10/21/18 06:38 Hgb 8.7 g/dL (12.9-16.9) L 10/21/18 06:38 Hct 27.4 % (37.5-50.1) L 10/21/18 06:38 MCHC 31.1 g/dL (31.6-35.5) L 10/20/18 04:24 RDW 17.0 % (11.5-14.5) H 10/21/18 06:38 Plt Count 84 K/mcL (140-400) L 10/21/18 06:38 Band Neutrophils % 70.0 % (0-4) H 10/09/18 22:18 Neutrophils # 9.6 K/mcL (1.6-8.9) H 10/10/18 04:00 Lymphocytes # 0.5 K/mcL (0.6-4.6) L 10/11/18 04:05 Nucleated RBCs/100 WBC 0.5 /100 WBC (0) H 10/18/18 04:00 Platelet Estimate Decreased (Normal) L 10/20/18 04:24 ESR 79 mm/hr (0-10) H 10/10/18 18:56 PT 15.9 Seconds (9.4-12.1) H 10/13/18 03:40 APTT 43.1 Seconds (26.0-36.0) H 10/13/18 03:40 Fibrinogen 465 mg/dL (169-393) H 10/10/18 17:15 Heparin Anti-Xa, Unfract 0.26 IU/mL (0.30-0.70) L 10/09/18 22:18 ABG pCO2 34 mmHg (35-45) L 10/13/18 04:36 ABG pO2 61 mmHg (85-104) L 10/14/18 05:01 ABG O2 Saturation 90 % (95-98) L 10/14/18 05:01 ABG Base Excess -3 mEq/L (-2 to 3) L 10/15/18 04:24 VBG pO2 69 mmHg (25-50) H 10/09/18 22:28 Sodium 135 mEq/L (136-145) L 10/17/18 03:33 Chloride 109 mEq/L (98-107) H 10/21/18 06:38 Carbon Dioxide 22 mEq/L (23-29) L 10/21/18 06:38 BUN 47 mg/dL (8-23) H 10/21/18 06:38 Creatinine 2.57 mg/dL (0.70-1.30) H 10/21/18 06:38 Est GFR ( Amer) 31 (> 60) L 10/21/18 06:38 Est GFR (Non-Af Amer) 25 (> 60) L 10/21/18 06:38 Glucose 120 mg/dL (70-105) H 10/18/18 04:00 POC Glucose 117 mg/dL (70-99) H 10/20/18 23:54 Calcium 8.0 mg/dL (8.6-10.3) L 10/21/18 06:38 Venous Ioniz Calcium 1.13 mmol/L (1.15-1.35) L 10/19/18 05:26 AST 66 Units/L (13-39) H 10/09/18 22:18 Lactate Dehydrogenase 286 Units/L (140-271) H 10/10/18 19:23 Troponin I 31.20 ng/mL (< 0.04) H* 10/10/18 12:00 C-Reactive Protein 209 mg/L (Less than 10) H 10/10/18 19:23 B-Natriuretic Peptide 868 pg/mL (Less than 100) H 10/09/18 22:18 Serum Total Protein 5.9 g/dL (6.4-8.9) L 10/13/18 03:40 Albumin 2.0 g/dL (3.5-5.7) L 10/14/18 03:56 Globulin 3.6 g/dL (2.4-3.5) H 10/13/18 03:40 Albumin/Globulin Ratio 0.6 (1.1-2.2) L 10/13/18 03:40 Procalcitonin 53.10 ng/mL (0.00-0.15) H 10/10/18 05:00 Urine Clarity Cloudy (Clear) A 10/10/18 00:42 Urine Protein >=300 mg/dL (Neg-Trace) H 10/10/18 00:42 Urine Ketones Trace mg/dL (Negative) H 10/10/18 00:42 Urine Blood Trace (Negative) H 10/10/18 00:42 Urine Bilirubin Moderate (Negative) H 10/10/18 00:42 Urine Microscopic RBC 3-5 per hpf (0-3) H 10/10/18 00:42 Urine Microscopic WBC 5-15 per hpf (0-3) H 10/10/18 00:42 Ur Squamous Epith Cells Many per lpf (None-Few) H 10/10/18 00:42 Hyaline Casts Many per lpf (None-Few) H 10/10/18 00:42 Protein/Creatinin Ratio 1.00 mg/mg (0.00-0.20) H 10/13/18 15:30 Urine Total Protein 103 mg/dL (1-14) H 10/13/18 15:30 Nasal Screen MRSA (PCR) Positive (Negative) A 10/09/18 22:59 Stl C.diff Tox A&B Gene DETECTED (Not detect) A 10/09/18 13:59 Vancomycin Trough 23 mcg/mL (5-10) H 10/12/18 03:55 Crossmatch See Detail 10/19/18 08:29 - Head Head exam: Present: atraumatic, normal inspection - Eye Eye exam: Present: PERRL - ENT ENT exam: Present: mucous membranes moist - Respiratory Respiratory exam: Present: decreased breath sounds, rhonchi - Expanded Respiratory Exam Location: decreased breath sounds: Left, Right, Lower, rhonchi: Left, Right, Upper - Cardiovascular Cardiovascular exam: Present: bradycardia, RRR, +S1, +S2 - Expanded Cardiovascular Exam Peripheral pulses: 1+: Femoral (L) PM, Femoral (R) PM, Posterior Tibialis (R), Dorsalis Pedis (R) PM, 2+: Carotid (L) PM, Carotid (R) PM, Radial (L), Radial (R) - GI/Abdominal GI/Abdominal exam: Present: normal bowel sounds, soft - exam: Present: scrotal swelling (Dark brown urine) - Extremities Exam Additional comments: Left BKA Right heal dressing per podiatry - Back Exam Back exam: Present: vertebral tenderness - Neurological Exam Neurological exam: Present: alert, oriented X3 - Psychiatric Psychiatric exam: Present: normal affect - Skin Skin exam: Present: pallor, warm Palliative Quality Palliative Quality: Screen for Code Status: Yes, Screen for Goals of Care: Yes, Screen for Pain: Yes, Screen for Nausea/Vomitting: Yes Code Status: 10/09/18 20:50 CODE [Resuscitation Status: Active] [RES] Routine Comment: Resuscitation Status: Full Code - Labs CBC & Chem 7: 10/21/18 06:38 10/21/18 06:38 Labs: Laboratory Results - last 24 hr 10/20/18 10/20/18 10/20/18 05:54 11:50 17:50 WBC RBC Hgb Hct MCV MCH MCHC RDW Plt Count MPV Immature Gran % Seg Neutrophils % Lymphocytes % Monocytes % Eosinophils % Basophils % Neutrophils # Lymphocytes # Monocytes # Eosinophils # Basophils # Immature Plt Fraction Sodium Potassium Chloride Carbon Dioxide BUN Creatinine Est GFR ( Amer) Est GFR (Non-Af Amer) BUN/Creatinine Ratio Glucose POC Glucose 114 H 157 H 200 H Calculated Osmolality Calcium Phosphorus Magnesium 10/20/18 10/21/18 10/21/18 23:54 06:38 06:38 WBC 4.3 RBC 2.94 L Hgb 8.7 L Hct 27.4 L MCV 93.2 MCH 29.6 MCHC 31.8 RDW 17.0 H Plt Count 84 L MPV 11.2 Immature Gran % 1.4 Seg Neutrophils % 57.9 Lymphocytes % 23.6 Monocytes % 11.8 Eosinophils % 4.8 Basophils % 0.5 Neutrophils # 2.5 Lymphocytes # 1.0 Monocytes # 0.5 Eosinophils # 0.2 Basophils # 0.0 Immature Plt Fraction 4.4 Sodium 138 Potassium 4.3 Chloride 109 H Carbon Dioxide 22 L BUN 47 H Creatinine 2.57 H Est GFR ( Amer) 31 L Est GFR (Non-Af Amer) 25 L BUN/Creatinine Ratio 18 Glucose 97 POC Glucose 117 H Calculated Osmolality 298 Calcium 8.0 L Phosphorus 3.9 Magnesium 2.1 - ABG Interpretation ABG results: ABG ABG pH 7.39 pH Units (7.32-7.45) 10/15/18 04:24 ABG pCO2 36 mmHg (35-45) 10/15/18 04:24 ABG pO2 100 mmHg (85-104) 10/15/18 04:24 ABG O2 Saturation 98 % (95-98) 10/15/18 04:24 PT/INR, D-dimer PT 15.9 Seconds (9.4-12.1) H 10/13/18 03:40 Palliative Scale - Palliative Performance Scale How ambulatory is this patient?: Totally bed bound What is patient's level of activity and evidence of disease?: Unable to do any work, Extensive disease How much self-care assistance does patient require?: Considerable assistance required How much oral intake does the patient have?: Normal or reduced What is this patient's level of consciousness?: Full or confusion Palliative Performance Score: 60 % Consult Discharge Plan - Plan Additional Instructions: Follow up in wound care 1 week s/p discharge with Dr. Herrera Cleanse right foot with warm water and soap daily. Cover ulcer with calcium alginate, 4x4 dry gauze, and kerlix. Secure with medipore tape. Referrals: Antonio Savage, VALIDATION ENGINEER [Advanced Practice Nurse] - (office will call patient at home with follow up appointment) Davion Ruelas DO [Partnered Physician] - 10/29/18 1:00 pm
[2018-10-21] MEDS: *HR* LORazepam 2 MG/ML VIAL IVP PRN (21:47)
[2018-10-22] MEDS: Ipratropium/Albuterol Neb 3 ML IH SCH ×7 (00:43→23:41)
[2018-10-22] MEDS: *HR* FentaNYL (PF) 100 MCG/2 ML VIAL IVP PRN ×2 (04:06→09:44)
[2018-10-22] MEDS: Insulin LISPRO 300 UNITS/3 ML VIAL SQ SCH ×4 (05:44→23:24)
[2018-10-22] MEDS: *HR* Heparin 5,000 UNIT/ML VIAL SQ SCH ×3 (05:44→23:23)
[2018-10-22] MEDS: Budesonide/Formoterol 160/4.5 1 PUFF INH IH SCH ×2 (07:23→20:06)
[2018-10-22 08:08] LABS: Basophils % 0.6 %; Eosinophils # 0.2 K/mcL (0.0-0.6); Eosinophils % 4.1 %; Hematocrit 27.9 % (37.5-50.1); Hemoglobin 8.5 g/dL (12.9-16.9); Immature Granulocytes % 1.1 % (0-4); Lymphocytes # 1.2 K/mcL (0.6-4.6); Lymphocytes % 26.7 %; Mean Corpuscular HGB Conc 30.5 g/dL (31.6-35.5); Mean Corpuscular Hemoglobin 29.2 pg (28.0-33.3); Mean Corpuscular Volume 95.9 fL (83.0-100.0); Mean Platelet Volume 10.9 fL (9.4-12.4); Monocytes # 0.5 K/mcL (0.0-1.3); Monocytes % 11.2 %; Neutrophils # 2.6 K/mcL (1.6-8.9); Red Blood Count 2.91 M/mcL (4.19-5.50); Red Cell Distribution Width 17.2 % (11.5-14.5); Segmented Neutrophils % 56.3 %; White Blood Count 4.6 K/mcL (4.3-11.1)
[2018-10-22 08:10] LABS: Platelet Count 74 K/mcL (140-400)
[2018-10-22] MEDS: Bumetanide 1 MG/4 ML VIAL IVP SCH ×2 (08:16→16:11)
[2018-10-22] MEDS: Famotidine 20 MG/2 ML VIAL IVP SCH (08:16)
[2018-10-22] MEDS: Cefepime HCl 1,000 MG in Water for inj. (sterile) 20 ML IVP SCH (08:16)
[2018-10-22] MEDS: metOLazone 5 MG TABLET PO SCH (08:17)
[2018-10-22] MEDS: hydrALAZINE 25 MG TABLET PO SCH ×3 (08:18→23:24)
[2018-10-22] MEDS: MetroNIDAZOLE 500 MG/100 ML 500 MG/100 ML BAG IVPB SCH ×3 (08:18→23:23)
[2018-10-22] MEDS: Vancomycin Oral Soln 125 MG/2.5 ML UDC PO SCH ×4 (08:18→20:32)
[2018-10-22] MEDS: Aspirin 81 MG TAB.CHEW PO SCH (08:18)
[2018-10-22 09:42] LABS: Calcium 8.1 mg/dL (8.6-10.3); Magnesium 2.1 mg/dL (1.6-2.6); Phosphorous 4.4 mg/dL (2.7-4.5); Potassium 4.3 mEq/L (3.5-5.1)
--- NOTE | 2018-10-22 09:46 | Internal Med Progress Note ---
<Radha Landeros - Last Filed: 10/22/18 13:02> Hospitalist Progress Note - Encounter Date of Encounter: 10/22/18 - Exam Vitals: Temp Pulse Resp BP Pulse Ox 97.8 F 54 25 127/59 99 10/22/18 11:31 10/22/18 12:34 10/22/18 11:31 10/22/18 11:31 10/22/18 11:31 - Assessment and Plan (1) Congestive heart failure Current Visit: No Status: Acute (2) Allergy to multiple antibiotics Current Visit: Yes Status: Acute (3) NSTEMI (non-ST elevated myocardial infarction) Current Visit: Yes Status: Acute (4) CKD (chronic kidney disease) stage 3, GFR 30-59 ml/min Current Visit: Yes Status: Acute (5) C. difficile diarrhea Current Visit: Yes Status: Acute (6) DM type 2 (diabetes mellitus, type 2) Current Visit: Yes Status: Chronic (7) Shock Current Visit: Yes Status: Resolved (8) Pneumonia Current Visit: Yes Status: Suspected (9) Venous stasis dermatitis of right lower extremity Current Visit: Yes Status: Acute (10) Metabolic encephalopathy Current Visit: Yes Status: Acute - Time Spent with Patient Total time spent is greater than 50% in coordination of care (as documented) at patient's floor/unit and/or counseling patient: Internal Medicine: Result - Labs CBC & Chem 7: 10/22/18 07:56 10/22/18 07:56 Labs: Short CBC 10/22/18 Range/Units 07:56 WBC 4.6 (4.3-11.1) K/mcL Hgb 8.5 L (12.9-16.9) g/dL Hct 27.9 L (37.5-50.1) % Plt Count 74 L (140-400) K/mcL Neutrophils # 2.6 (1.6-8.9) K/mcL BMP 10/22/18 07:56 Sodium 141 Potassium 4.3 Chloride 107 Carbon Dioxide 21 L BUN 47 H Creatinine 2.57 H Glucose 93 Calcium 8.1 L - ABG Interpretation ABG results: ABG ABG pH 7.39 pH Units (7.32-7.45) 10/15/18 04:24 ABG pCO2 36 mmHg (35-45) 10/15/18 04:24 ABG pO2 100 mmHg (85-104) 10/15/18 04:24 ABG O2 Saturation 98 % (95-98) 10/15/18 04:24 PT/INR, D-dimer PT 15.9 Seconds (9.4-12.1) H 10/13/18 03:40 Consult Discharge Plan - Plan Additional Instructions: Follow up in wound care 1 week s/p discharge with Dr. Herrera Cleanse right foot with warm water and soap daily. Cover ulcer with calcium alginate, 4x4 dry gauze, and kerlix. Secure with medipore tape. Referrals: Antonio Savage, ACCIDENT REPORT CLERK [Advanced Practice Nurse] - (office will call patient at home with follow up appointment) Davion Ruelas DO [Partnered Physician] - 10/29/18 1:00 pm - Attending Attestation I examined this patient and my medical decision-making was reviewed with the Resident Physician Dr Cardenas. I agree with the documented findings, disposition and treatment plan as described except to the extent set forth below. Mr Sanford is admitted for resp and renal failure, C Diff and NSTEMI awake, no family present, on bipap mask. states diarrhea is getting better, no abd pain, fevers or chills. sob unchanged and remains on bipap.no family present gen- alert, awake,appears stated age eyes- pupils equal round cv- reg rate and rhythm, normal s1,s2, no murmurs appreciated lungs- ctabl, no wheezing, rhonchi or crackles abd- soft, non tender, non distended, + bs neuro- AAOx3, CN grossly intact, no focal deficits Cdiff-, recurrent- appreciate ID recs, IV fagly + PO vanc Pna, organism uk- cont cefepime, appreciate ID recs, repeat CXR pending NSTEMI s/p stent- DAPT, allergy to statin, fu cards outpt GILES on CKD 3- appreciate nephro input, cont diuresis Acute systolic CHF- cont diuresis, no BB due to low BPs, meds as bp/creat permits this admission, repeat CXR pending venous stasis dermatitis- wound care dispo- family now agreeable to snf per notes <Jason Cardenas - Last Filed: 10/22/18 18:04> Hospitalist Progress Note - Encounter Date of Encounter: 10/22/18 Time of Encounter: 09:00 - Subjective Interval History: Patient seen and examined at bedside is wondering. Patient continues to be requiring BiPAP. Respiratory status did not improve from day prior. Kidney function is continuing to move in the right direction, creatinine stable from yesterday. Fluid status appears mildly improved, edema in hands has decreased. However his right lower determine the venous stasis dermatitis does appear to be getting worse. Patient continues to complain of pressure sore on his back which wound care is managing. Continues to be bradycardic with slow A. fib. Repeat chest x-ray today showed bibasilar groundglass opacities consistent with atelectasis versus infection versus worsening edema, in addition to bilateral small to moderate pleural effusions. - Exam Vitals: Temp Pulse Resp BP Pulse Ox 97.9 F 59 23 139/62 99 10/22/18 06:15 10/22/18 06:15 10/22/18 07:23 10/22/18 06:15 10/22/18 07:23 Exam: General: Not in acute distress at this time, a and O 3 Head: Atraumatic, normocephalic Eyes: Spontaneously opens eyes, EOMI, anicteric ENT: Mucous membranes dry, oropharynx clear Neck: Soft, supple, no nuchal rigidity CV: Rhythm regular, bradycardic, normal S1, S2 no murmurs Respiratory: Coarse breath sounds bilaterally, poor inspiratory effort, rales and rhonchi noted diffusely Abdomen: Soft, nontender, nonrigid, no rebound tenderness Extremities: Left BKA noted, patient is edematous bilaterally, evidence of venous stasis dermatitis in the right - Assessment and Plan (1) C. difficile colitis Current Visit: Yes Status: Acute Assessment and Plan: Patient was treated back in June for C. difficile Transferred from [facility] secondary to profound diarrhea, presumed C. difficile Stool C. difficile toxin a&b positive On admission, patients vitals significant for respiratory rate 27 White blood count was 15.7 with a significant bandemia Has been afebrile since admission Repeat white blood count down to 5.3 CT abdomen did show thickening of the sigmoid colon, no evidence of toxic megacolon Infectious disease following, appreciate recommendations Plan: We will continue with oral vancomycin, plan for 6 weeks We will continue IV Flagyl (2) Acute on chronic kidney failure Current Visit: Yes Status: Acute Assessment and Plan: Known history of CKD 3 Baseline Cr 1.5 Developed an GILES during admission Highest Cr 2.97 Has had significantly decreased UOP Has been downtrending since then 2.57 today, stable from yesterday Nephrology following, Appreciate Recs Plan: Continue to Diurese, on Bumex and metolazone Continue to trend BUN/Cr. Continue to monitor UOP (3) NSTEMI (non-ST elevated myocardial infarction) Current Visit: Yes Status: Acute Assessment and Plan: Patient presented with NSTEMI Troponins elevated up to 30 during admission Urgent LHC performed with stent placement DAPT initiated, has an allergy to Statin, no BB 2/2 hypotension Cardiology was following, has since signed off No chest pains currently Telemetry shows slow A.Fib Plan: Continuous telemetry (4) Acute decompensated heart failure Current Visit: Yes Status: Acute Assessment and Plan: Patient with history of diastolic heart failure, preserved ejection fraction Echo from May 2018 showed EF 60-65% Repeat echo this admission: EF 25% Acute decompensation likely secondary to NSTEMI Patient remained significantly fluid overloaded secondary to new systolic heart failure in addition to acute on chronic kidney failure Patient had pulmonary edema on chest x-ray, repeat CXR reveals interval worsening in edema vs bibasilar PNA, with bilateral pleural effusions Continue BiPAP. Continue diuresis (5) Pneumonia Current Visit: Yes Status: Suspected Assessment and Plan: CXR 10/15 showed consolidation Suspected to be pleural efusion but PNA cant be ruled out Procalcitonin was elevated to 53 during admission Repeat CXR showed improvement in bibasilar atelectasis vs PNA Patient respiratory status not improving Oxygen saturation stable but continues to require BiPap Diffuse wheezes present on Physical exam currently day 13 of cefepime ID following, appreciate Recs Repeat CXR today shows small to moderate bilateral pleural effusions with bibasilar airspace opacities which could represent edema, pleural effusion, atelectasis, infection (6) Thrombocytopenia Current Visit: Yes Status: Acute Assessment and Plan: Continues to decline In the 130s at admission Down to 74 today Appears to be chronically thrombocytopenic Cannot rule out HIT Patient does still require heparin for significant risk of DVT We will continue to monitor (7) PVD (peripheral vascular disease) Current Visit: No Status: Chronic Assessment and Plan: Patient has a known history of PVD S/P Left BKA Currently has Venous stasis dermatitis with ulceration of right leg Ulcer dressing c/d/I Interval worsening in dermatitis from day before Plan: Continue would care Continue compression boot Continue diuresis (8) DM type 2 (diabetes mellitus, type 2) Current Visit: Yes Status: Chronic Assessment and Plan: Known history of T2DM Sugars stable since admission Q6hr low dose SSI (9) Hypertension Current Visit: Yes Status: Chronic Assessment and Plan: Patient does have a known history of HTN Home BP meds still on hold 2/2 hypotension BP has been stable since off Pressors Plan: Continue to monitor BP May restart BP meds if gets Hypertensive - Time Spent with Patient Total time spent is greater than 50% in coordination of care (as documented) at patient's floor/unit and/or counseling patient: Internal Medicine: Result - Labs CBC & Chem 7: 10/22/18 07:56 10/22/18 07:56 Labs: Short CBC 10/22/18 Range/Units 07:56 WBC 4.6 (4.3-11.1) K/mcL Hgb 8.5 L (12.9-16.9) g/dL Hct 27.9 L (37.5-50.1) % Plt Count 74 L (140-400) K/mcL Neutrophils # 2.6 (1.6-8.9) K/mcL BMP 10/22/18 07:56 Sodium 141 Potassium 4.3 Chloride 107 Carbon Dioxide 21 L BUN 47 H Creatinine 2.57 H Glucose 93 Calcium 8.1 L - ABG Interpretation ABG results: ABG ABG pH 7.39 pH Units (7.32-7.45) 10/15/18 04:24 ABG pCO2 36 mmHg (35-45) 10/15/18 04:24 ABG pO2 100 mmHg (85-104) 10/15/18 04:24 ABG O2 Saturation 98 % (95-98) 10/15/18 04:24 PT/INR, D-dimer PT 15.9 Seconds (9.4-12.1) H 10/13/18 03:40 <Radha Landeros M - Last Filed: 10/22/18 13:02> (1) Congestive heart failure Qualifiers: Heart failure type: systolic Heart failure chronicity: acute on chronic Qualified Code(s): I50.23 - Acute on chronic systolic (congestive) heart failure (6) DM type 2 (diabetes mellitus, type 2) Qualifiers: Diabetes mellitus intermediate card tender insulin use: without senior living use Diabetes mellitus complication status: with skin complications Diabetes mellitus complication detail: with foot ulcer Qualified Code(s): E11.621 - Type 2 diabetes mellitus with foot ulcer; L97.509 - Non-pressure chronic ulcer of other part of unspecified foot with unspecified severity (8) Pneumonia Qualifiers: Pneumonia type: aspiration pneumonia Laterality: left Lung location: unspecified part of lung <aJson Cardenas M - Last Filed: 10/22/18 18:04> (2) Acute on chronic kidney failure Qualifiers: Acute renal failure type: unspecified Chronic kidney disease stage: stage 3 (moderate) Qualified Code(s): N17.9 - Acute kidney failure, unspecified; N18.3 - Chronic kidney disease, stage 3 (moderate) (5) Pneumonia Qualifiers: Pneumonia type: aspiration pneumonia Laterality: left Lung location: unspecified part of lung (8) DM type 2 (diabetes mellitus, type 2) Qualifiers: Diabetes mellitus intermediate card tender insulin use: without intermediate card tender use Diabetes mellitus complication status: with skin complications Diabetes mellitus complication detail: with foot ulcer Qualified Code(s): E11.621 - Type 2 diabetes mellitus with foot ulcer; L97.509 - Non-pressure chronic ulcer of other part of unspecified foot with unspecified severity (9) Hypertension Qualifiers: Hypertension type: essential hypertension Qualified Code(s): I10 - Essential (primary) hypertension
--- NOTE | 2018-10-22 10:11 | Palliative Progress Note ---
Date of Encounter: 10/22/18 Time of Encounter: 10:00 - Assessment and plan (1) Sacral pain Current Visit: Yes Status: Acute Assessment and plan: Continues with IV Fentanyl - utilized x 3 last 24 hours. States this is helpful for his pain. Continue and monitor. Could likely be transitioned to oral med soon, (2) Dyspnea Current Visit: No Status: Acute Assessment and plan: Continues treatment with supportive oxygen, bipap PRN, Duoneb/Symbicort. MOnitor Qualifiers: Dyspnea type: unspecified Qualified Code(s): R06.00 - Dyspnea, unspecified (3) Goals of care, counseling/discussion Current Visit: Yes Status: Acute Assessment and plan: Patient's did change her mind yesterday, deciding she likely could not care for him at home, and spoke with social service regarding ECF placement. No family present at bedside this am. (4) Congestive heart failure Current Visit: No Status: Acute Qualifiers: Heart failure type: systolic Heart failure chronicity: acute on chronic Qualified Code(s): I50.23 - Acute on chronic systolic (congestive) heart failure (5) Acute exacerbation of chronic obstructive airways disease Current Visit: No Status: Acute (6) GILES (acute kidney injury) Current Visit: No Status: Acute (7) C. difficile diarrhea Current Visit: Yes Status: Suspected (8) Palliative care encounter Current Visit: Yes Status: Acute - Time Spent With Patient Total time spent is greater than 50% in coordination of care (as documented) at patient's floor/unit and/or counseling patient: - Subjective Interval history: Patient awake and alert on bipap. Tolerating well. Staff nurse reported that it was off earlier am and he was oxygenating well,, but he asked for bipap back on. C/o pain sacral decub, but states that pain medication is helping. No family present. - Constitutional Vitals: Abnormal lab results WBC 3.8 K/mcL (4.3-11.1) L 10/19/18 05:15 RBC 2.91 M/mcL (4.19-5.50) L 10/22/18 07:56 Hgb 8.5 g/dL (12.9-16.9) L 10/22/18 07:56 Hct 27.9 % (37.5-50.1) L 10/22/18 07:56 MCHC 30.5 g/dL (31.6-35.5) L 10/22/18 07:56 RDW 17.2 % (11.5-14.5) H 10/22/18 07:56 Plt Count 74 K/mcL (140-400) L 10/22/18 07:56 Band Neutrophils % 70.0 % (0-4) H 10/09/18 22:18 Neutrophils # 9.6 K/mcL (1.6-8.9) H 10/10/18 04:00 Lymphocytes # 0.5 K/mcL (0.6-4.6) L 10/11/18 04:05 Nucleated RBCs/100 WBC 0.5 /100 WBC (0) H 10/18/18 04:00 Platelet Estimate Decreased (Normal) L 10/20/18 04:24 ESR 79 mm/hr (0-10) H 10/10/18 18:56 PT 15.9 Seconds (9.4-12.1) H 10/13/18 03:40 APTT 43.1 Seconds (26.0-36.0) H 10/13/18 03:40 Fibrinogen 465 mg/dL (169-393) H 10/10/18 17:15 Heparin Anti-Xa, Unfract 0.26 IU/mL (0.30-0.70) L 10/09/18 22:18 ABG pCO2 34 mmHg (35-45) L 10/13/18 04:36 ABG pO2 61 mmHg (85-104) L 10/14/18 05:01 ABG O2 Saturation 90 % (95-98) L 10/14/18 05:01 ABG Base Excess -3 mEq/L (-2 to 3) L 10/15/18 04:24 VBG pO2 69 mmHg (25-50) H 10/09/18 22:28 Sodium 135 mEq/L (136-145) L 10/17/18 03:33 Chloride 109 mEq/L (98-107) H 10/21/18 06:38 Carbon Dioxide 21 mEq/L (23-29) L 10/22/18 07:56 BUN 47 mg/dL (8-23) H 10/22/18 07:56 Creatinine 2.57 mg/dL (0.70-1.30) H 10/22/18 07:56 Est GFR ( Amer) 31 (> 60) L 10/22/18 07:56 Est GFR (Non-Af Amer) 25 (> 60) L 10/22/18 07:56 Glucose 120 mg/dL (70-105) H 10/18/18 04:00 POC Glucose 143 mg/dL (70-99) H 10/21/18 16:43 Calculated Osmolality 304 (280-300) H 10/22/18 07:56 Calcium 8.1 mg/dL (8.6-10.3) L 10/22/18 07:56 Venous Ioniz Calcium 1.13 mmol/L (1.15-1.35) L 10/19/18 05:26 AST 66 Units/L (13-39) H 10/09/18 22:18 Lactate Dehydrogenase 286 Units/L (140-271) H 10/10/18 19:23 Troponin I 31.20 ng/mL (< 0.04) H* 10/10/18 12:00 C-Reactive Protein 209 mg/L (Less than 10) H 10/10/18 19:23 B-Natriuretic Peptide 868 pg/mL (Less than 100) H 10/09/18 22:18 Serum Total Protein 5.9 g/dL (6.4-8.9) L 10/13/18 03:40 Albumin 2.0 g/dL (3.5-5.7) L 10/14/18 03:56 Globulin 3.6 g/dL (2.4-3.5) H 10/13/18 03:40 Albumin/Globulin Ratio 0.6 (1.1-2.2) L 10/13/18 03:40 Procalcitonin 53.10 ng/mL (0.00-0.15) H 10/10/18 05:00 Urine Clarity Cloudy (Clear) A 10/10/18 00:42 Urine Protein >=300 mg/dL (Neg-Trace) H 10/10/18 00:42 Urine Ketones Trace mg/dL (Negative) H 10/10/18 00:42 Urine Blood Trace (Negative) H 10/10/18 00:42 Urine Bilirubin Moderate (Negative) H 10/10/18 00:42 Urine Microscopic RBC 3-5 per hpf (0-3) H 10/10/18 00:42 Urine Microscopic WBC 5-15 per hpf (0-3) H 10/10/18 00:42 Ur Squamous Epith Cells Many per lpf (None-Few) H 10/10/18 00:42 Hyaline Casts Many per lpf (None-Few) H 10/10/18 00:42 Protein/Creatinin Ratio 1.00 mg/mg (0.00-0.20) H 10/13/18 15:30 Urine Total Protein 103 mg/dL (1-14) H 10/13/18 15:30 Nasal Screen MRSA (PCR) Positive (Negative) A 10/09/18 22:59 Stl C.diff Tox A&B Gene DETECTED (Not detect) A 10/09/18 13:59 Vancomycin Trough 23 mcg/mL (5-10) H 10/12/18 03:55 Crossmatch See Detail 10/19/18 08:29 General appearance: Present: no acute distress - Respiratory Respiratory exam: Present: decreased breath sounds Additional comments: Occasional rhonchi anteriorally, BS diminished bilaterally lower lobes posteriorally - Cardiovascular Cardiovascular exam: Present: +S1, +S2 - GI/Abdominal GI/Abdominal exam: Present: distended, normal bowel sounds, soft - Additional comments: Urine very dk hipolito with sediment - Extremities Exam Additional comments: Left stump with dry flaky skin. Dressing and heel protector to RLE intact - Neurological Exam Neurological exam: Present: alert, oriented X3, strengths equal and symetr throughout - Skin Skin exam: Present: dry, pallor, warm Palliative Quality Palliative Quality: Screen for Code Status: Yes, Screen for Goals of Care: Yes, Screen for Pain: Yes, Screen for Nausea/Vomitting: Yes Code Status: 10/09/18 20:50 CODE [Resuscitation Status: Active] [RES] Routine Comment: Resuscitation Status: Full Code - Labs CBC & Chem 7: 10/22/18 07:56 10/22/18 07:56 Labs: Laboratory Results - last 24 hr 10/21/18 10/21/18 10/21/18 05:49 11:41 16:43 WBC RBC Hgb Hct MCV MCH MCHC RDW Plt Count MPV Immature Gran % Seg Neutrophils % Lymphocytes % Monocytes % Eosinophils % Basophils % Neutrophils # Lymphocytes # Monocytes # Eosinophils # Basophils # Sodium Potassium Chloride Carbon Dioxide BUN Creatinine Est GFR ( Amer) Est GFR (Non-Af Amer) BUN/Creatinine Ratio Glucose POC Glucose 122 H 116 H 143 H Calculated Osmolality Calcium Phosphorus Magnesium 10/22/18 10/22/18 07:56 07:56 WBC 4.6 RBC 2.91 L Hgb 8.5 L Hct 27.9 L MCV 95.9 MCH 29.2 MCHC 30.5 L RDW 17.2 H Plt Count 74 L MPV 10.9 Immature Gran % 1.1 Seg Neutrophils % 56.3 Lymphocytes % 26.7 Monocytes % 11.2 Eosinophils % 4.1 Basophils % 0.6 Neutrophils # 2.6 Lymphocytes # 1.2 Monocytes # 0.5 Eosinophils # 0.2 Basophils # 0.0 Sodium 141 Potassium 4.3 Chloride 107 Carbon Dioxide 21 L BUN 47 H Creatinine 2.57 H Est GFR ( Amer) 31 L Est GFR (Non-Af Amer) 25 L BUN/Creatinine Ratio 18 Glucose 93 POC Glucose Calculated Osmolality 304 H Calcium 8.1 L Phosphorus 4.4 Magnesium 2.1 - ABG Interpretation ABG results: ABG ABG pH 7.39 pH Units (7.32-7.45) 10/15/18 04:24 ABG pCO2 36 mmHg (35-45) 10/15/18 04:24 ABG pO2 100 mmHg (85-104) 10/15/18 04:24 ABG O2 Saturation 98 % (95-98) 10/15/18 04:24 PT/INR, D-dimer PT 15.9 Seconds (9.4-12.1) H 10/13/18 03:40 Palliative Scale - Palliative Performance Scale How ambulatory is this patient?: Totally bed bound What is patient's level of activity and evidence of disease?: Unable to do any work, Extensive disease How much self-care assistance does patient require?: Considerable assistance required How much oral intake does the patient have?: Normal or reduced What is this patient's level of consciousness?: Full or confusion Palliative Performance Score: 60 % Consult Discharge Plan - Plan Additional Instructions: Follow up in wound care 1 week s/p discharge with Dr. Herrera Cleanse right foot with warm water and soap daily. Cover ulcer with calcium alginate, 4x4 dry gauze, and kerlix. Secure with medipore tape. Referrals: Antonio Savage, EMR SPECIALIST [Advanced Practice Nurse] - (office will call patient at home with follow up appointment) Davion Ruelas DO [Partnered Physician] - 10/29/18 1:00 pm
--- NOTE | 2018-10-22 10:21 | Nephrology Progress Note ---
Date of Encounter: 10/22/18 Time of Encounter: 09:35 - Assessment and Plan (1) Acute on chronic kidney failure Current Visit: Yes Status: Acute He remains non-oliguric and with stable renal function. 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 Continue diuretics which he is tolerating well. I recommend a renal protective/conservative strategy by avoiding nephrotoxic agents as able, strict I's and O's, daily weights, renal diet when able, and renal dosing. Thank you Qualifiers: Acute renal failure type: unspecified Chronic kidney disease stage: stage 3 (moderate) Qualified Code(s): N17.9 - Acute kidney failure, unspecified; N18.3 - Chronic kidney disease, stage 3 (moderate) (2) Anemia Current Visit: Yes Status: Chronic Qualifiers: Anemia type: due to chronic kidney disease Chronic kidney disease stage: stage 3 (moderate) Qualified Code(s): N18.3 - Chronic kidney disease, stage 3 (moderate); D63.1 - Anemia in chronic kidney disease (3) Hypertension Current Visit: Yes Status: Chronic Qualifiers: Hypertension type: essential hypertension Qualified Code(s): I10 - Essential (primary) hypertension (4) Acute exacerbation of CHF (congestive heart failure) Current Visit: Yes Status: Acute Qualifiers: Heart failure type: systolic Qualified Code(s): I50.23 - Acute on chronic systolic (congestive) heart failure (5) Acute MO Current Visit: Yes Status: Acute Qualifiers: Myocardial infarction type: unspecified Involved coronary artery: unspecified coronary artery Qualified Code(s): I21.9 - Acute myocardial infarction, unspecified (6) DM type 2 (diabetes mellitus, type 2) Current Visit: Yes Status: Chronic Qualifiers: Diabetes mellitus snf insulin use: without terminal manager use Diabetes mellitus complication status: with skin complications Diabetes mellitus complication detail: with foot ulcer Qualified Code(s): E11.621 - Type 2 diabetes mellitus with foot ulcer; L97.509 - Non-pressure chronic ulcer of other part of unspecified foot with unspecified severity Subjective Principal diagnosis: CHF, AMI, C-Diff, GILES Interval history: The patient was briefly s/e earlier today, and he did not affirm active uremic complaints. I noticed that his BMP labs did not return earlier today, so I asked his floor nurse to request the lab send someone back to draw the chemistry. Objective - Vital Signs Vital signs: Vital Signs Temp Pulse Resp BP Pulse Ox 10/22/18 09:59 65 10/22/18 07:23 23 99 10/22/18 06:15 97.9 F 59 20 139/62 95 10/22/18 04:03 29 97 10/22/18 03:53 98.3 F 67 19 113/60 99 10/22/18 03:43 24 97 10/22/18 00:43 21 130/61 98 10/21/18 23:56 98.2 F 55 21 130/61 98 10/21/18 20:05 18 92 10/21/18 19:21 98.3 F 59 20 104/57 96 10/21/18 16:53 97.6 F 59 20 121/51 91 10/21/18 15:55 27 90 10/21/18 11:38 98.6 F 65 24 131/59 98 10/21/18 11:02 27 100 Intake and Output 10/21/18 10/22/18 10/22/18 23:59 07:59 15:59 Intake Total 100 / 320 100 / 220 120 / 220 Output Total 850 / 1050 250 / 250 Balance -750 / -730 -150 / -30 120 / -30 Intake: IV Fluids 100 / 320 100 / 220 120 / 220 Maxipime 1,000 MG In Water for 20 / 20 inj. (sterile) 20 ML @ 300 mls/ hr IVP Q24H [facility] Rx#:[id number] Flagyl Premix 500 MG/100 ML 500 100 / 300 100 / 200 100 / 200 mg In 100 ml @ 100 mls/hr IVPB Q8HR [facility] Rx#:[id number] Output: Straight Cath 150 / 150 Catheter 850 / 1050 100 / 100 Other: Weight 122.4 kg Blood Glucose* 121 102 Patient Weight 10/22/18 23:59 Weight 122.4 kg - General Appearance General appearance: Present: well-developed, well-nourished, obese, fatigue, frail EENT: Present: ATNC, PERRL, mucous membranes moist Neck: Present: no JVD Respiratory: Present: no kyphosis, rhonchi Cardiology: Present: edema, normal S1, normal S2 Gastrointestinal: Present: normoactive bowel sounds, no tenderness, obese Integumentary: Present: warm and dry, ecchymotic Neurologic: Present: no focal deficit, alert and oriented x3 Musculoskeletal: Present: no erythema, no cyanosis Psychiatric: Present: mood/affect appropriate, cooperative - Lab 10/22/18 07:56 10/22/18 07:56 Most recent lab results 10/22/18 07:56 Calcium 8.1 L Phosphorus 4.4 Magnesium 2.1 Consult Discharge Plan - Plan Additional Instructions: Follow up in wound care 1 week s/p discharge with Dr. Herrera Cleanse right foot with warm water and soap daily. Cover ulcer with calcium alginate, 4x4 dry gauze, and kerlix. Secure with medipore tape. Referrals: Antonio Savage, CRA [Advanced Practice Nurse] - (office will call patient at home with follow up appointment) Davion Ruelas DO [Partnered Physician] - 10/29/18 1:00 pm
--- NOTE | 2018-10-22 11:18 | Infectious Disease Progress No ---
ID Progress Note Date of Encounter: 10/22/18 Time of Encounter: 11:50 - Subjective Subjective: Patient was seen and examined at the bedside today. He did use to be on BiPAP at 99%. Patient is afebrile with a pulse of 55, non-oliguric with stable renal function. He is A&O*3, moving his extremities, clear speech and responds to question in an appropriate manner. He is currently on day 13 of IV 500MG q8h Flagyl, day 13 of IV 1 g q24h cefepime, currently on day 13 of 125 mg PO V ancomycin. - Objective CBC & Chem 7: 10/23/18 01:09 10/23/18 01:09 - Exam Vitals: Temp Pulse Resp BP Pulse Ox 97.9 F 65 23 139/62 99 10/22/18 06:15 10/22/18 09:59 10/22/18 07:23 10/22/18 06:15 10/22/18 07:23 Exam: Gen.: Vitals noted. No acute distress. A&O*3. On BiPAP HEENT: oropharynx clear, Normocephalic, atraumatic, MMM Neck: supple, no JVD, no lymphadenopathy, no carotid bruit. Cardiac: RRR, no murmur, +S1/S2, No BLE edema, PMI non-displaced Pulmonary: bilateral wheezing, no rales or rhonchi, equal chest expansion Abdomen: soft, nontender, BS noted, no guarding, undistended. No organomegaly, no pulsatile masses, Skin: R leg cellulites drapped in bandage, warm and dry Extremities: Left leg amputated, venous stasis of the R leg drapped in Bolivar Wrap MSK: ROM not assessed. no joint swelling noted, gait not assessed while in bed. Non tender calf or clubbing, no cyanosis/clubbing/ or edema Neuro: A&O, moves all extremities, no focal deficits, sensation intact - Assessment and Plan (1) Metabolic encephalopathy Current Visit: Yes Status: Acute - Seems to have improved since the last time I saw him. Patient has been stepped down from the ICU to - was likely multifactorial due to sepsis , with GILES , s/p intubation and discontinuation of versed. Patient also had hydrostatic pulmonary edema with a reduced EF of 25 % which is unchanged from his previous Echo. -patient is A*O to person, place and time. -continue Abx , continue on Bumex 1 mg IV BID. SNOMED Code(s): 00822914 (2) Shock Current Visit: Yes Status: Resolved -Resolved , patient currently extubated and off pressors -Was Likely cardiogenic in nature -Patient was transferred from [facility] to ICU because of diarrheal episodes for the past 2 weeks accompanied by abdominal pain -Pertinent Vitals /Labs on admission: Temp: 99.9, Pulse: 97, RR: 27, WBC: 15.7, Band neutrophils 70%, Lactate : 2.1, BNP: 2898. -Pertinent Vitals /Labs now: Temp: 97.8, Pulse: 69, RR: 14, WBC: 4.1 -He also has a right leg cellulitis- no evidence of any bleeding or serosan guineous discharge -10/09/18 Chest x-ray showed bilateral mild and lower lung airspace disease and bilateral pleural effusion with concerns for pulmonary edema -10/10/18 Abdomen /Pelvic CT revealed wall thickening of the sigmoid colon likely related to lack of distention. Correlation for colitis is recommended PLAN -Continue PO Vancomycin tapering dose through November 20 for a total of 6 weeks -Continue cefepime 2 g IV every 12 hours for a total of 10-14 days through 10/24 -Continue IV Flagyl 500mg q8h through 10/24. SNOMED Code(s): 07411541 (3) C. difficile diarrhea Current Visit: Yes Status: Acute -Patient has a history of associated diarrhea . -He was treated in the hospital in the month of June for C. difficile and was on discharged vancomycin taper. -Has been afebrile since admission, with current white blood count of 5.3 . -Stool C. difficile toxin A&B was detected . -CT abdominal pelvis did not show any evidence for toxic megacolon but there was wall thickening of the sigmoid colon -Patient had 1 watery bowel movement yesterday but not today so far. PLAN: -Continue vancomycin for 6 weeks. Tapering dose through November 20 SNOMED Code(s): 3867756766293 (4) Pneumonia Current Visit: Yes Status: Suspected Etiology unknown Procalcitonin significantly elevated at 53.1 on admission. on physical exam he has bilateral wheezes. patient on 3L satting at 93% 7/13/19: CXR Consolidation is likely pleural efusion but cannot rule out pneumonia at this time 10/14/18: CXR Improving bibasilar atelectesis or PNA Currently on day 12 of IV 500mg Flagyl, day 12 of 2gm cefepime through 10/24. PLAN: - Repeat chest x-ray -Dose adjust cefepime based on Creatinine Clearance Qualifiers: Pneumonia type: aspiration pneumonia Laterality: left Lung location: unspecified part of lung SNOMED Code(s): 762301218 (5) NSTEMI (non-ST elevated myocardial infarction) Current Visit: Yes Status: Acute Patient found to have significant elevation in his troponin with troponin less than upper limit of normal at [facility] and upon arrival to [place] was found to have troponin of 30.22 and repeat 30.47 * Echocardiogram limited was obtained which shows EF of 25% which is a significant drop from previous in 05/30/18 which had a EF of 60-65% * The patient does have a long history of cardiac disease and has undergone CABG prior * Patient underwent catheterization overnight with Dr. Velasquez and a bare metal fanta nt was placed in the saphenous venous graft OM1 SNOMED Code(s): 98886226 (6) Congestive heart failure Current Visit: No Status: Acute - Patient has an acute decompensation of heart failure likely due to NSTEMI -Recent echocardiogram showed an EF of 25% which was a significant drop from his EF in 05/2018 when it was 60-65% -Patient has been switched from Lasix twice a day to 1 mg Bumex twice a day as per nephrology - Further management as per the ICU team Qualifiers: Heart failure type: systolic Heart failure chronicity: acute on chronic Qualified Code(s): I50.23 - Acute on chronic systolic (congestive) heart failure SNOMED Code(s): 86997730 (7) CKD (chronic kidney disease) stage 3, GFR 30-59 ml/min Current Visit: Yes Status: Acute -She has a history of CK D of a stage III -Patient has had a bump in his creatinine from 1.56 on admission to 2.42 . -Avoid nephrotoxic agent and renally dose steroids. SNOMED Code(s): 119892336 (8) Allergy to multiple antibiotics Current Visit: Yes Status: Acute Patient allergic to multiple antibiotics like Biaxin, Keflex, Levaquin, Zithromax and clindamycin SNOMED Code(s): 944356212120240 (9) DM type 2 (diabetes mellitus, type 2) Current Visit: Yes Status: Chronic Patient has a history of diabetes. Currently on low-dose sliding scale insulin Qualifiers: Diabetes mellitus nursing home insulin use: without intermediate project manager use Diabetes mellitus complication status: with skin complications Diabetes mellitus complication detail: with foot ulcer Qualified Code(s): E11.621 - Type 2 diabetes mellitus with foot ulcer; L97.509 - Non-pressure chronic ulcer of other part of unspecified foot with unspecified severity SNOMED Code(s): 11345503 (10) Venous stasis dermatitis of right lower extremity Current Visit: Yes Status: Chronic -Venous stasis of the right lower extremity with no evidence of any bleeding or serosangunous discharge -looks stable at baseline SNOMED Code(s): 49542929 Consult Discharge Plan - Plan Additional Instructions: Follow up in wound care 1 week s/p discharge with Dr. Herrera Cleanse right foot with warm water and soap daily. Cover ulcer with calcium alginate, 4x4 dry gauze, and kerlix. Secure with medipore tape. Referrals: Antonio Savage, SET UP OPERATOR TOOL [Advanced Practice Nurse] - (office will call patient at home with follow up appointment) Davion Ruelas DO [Partnered Physician] - 10/29/18 1:00 pm - Attending Attestation I examined this patient and my medical decision-making was reviewed with the Resident Physician. I agree with the documented findings, disposition and treatment plan as described except to the extent set forth below. Assessment and plan: 1. shock - cardiogenic? improved. off dopamine 2. Pneumonia - likely aspiration; improved 3. C diff colitis first recurrnece - will treat for 6 weeks with tapering dose through November 20 4. lower extremities venous stasis 5. third spacing 6. Metabolic encephalopathy Recommendations: continue cefepime and flagyl through 10/24 continue oral vanc [id number] we will do tapering dose through November 20 Repeat CXR dose adjust cefepime based on CrCl
[2018-10-22] MEDS ORDERED: Saline Nasal Spray 44 ML BOTTLE NS PRN (15:57)
[2018-10-22] MEDS: traMADol 50 MG TABLET PO PRN (16:50)
[2018-10-23 01:55] LABS: Basophils % 1.2 %; Hemoglobin 8.4 g/dL (12.9-16.9); Immature Granulocytes % 1.2 % (0-4); Red Cell Distribution Width 17.2 % (11.5-14.5)
[2018-10-23 01:57] LABS: Basophils # 0.1 K/mcL (0.0-0.2); Eosinophils # 0.2 K/mcL (0.0-0.6); Eosinophils % 4.1 %; Hematocrit 27.8 % (37.5-50.1); Immature Platelets 4.5 % (1.1-6.1); Lymphocytes % 23.9 %; Mean Corpuscular HGB Conc 30.2 g/dL (31.6-35.5); Mean Corpuscular Hemoglobin 29.3 pg (28.0-33.3); Mean Corpuscular Volume 96.9 fL (83.0-100.0); Mean Platelet Volume 11.3 fL (9.4-12.4); Monocytes # 0.5 K/mcL (0.0-1.3); Neutrophils # 2.4 K/mcL (1.6-8.9); Red Blood Count 2.87 M/mcL (4.19-5.50); Segmented Neutrophils % 57.6 %; White Blood Count 4.2 K/mcL (4.3-11.1)
[2018-10-23 02:09] LABS: Platelet Count 74 K/mcL (140-400)
[2018-10-23 02:16] LABS: Calcium 7.8 mg/dL (8.6-10.3); Magnesium 2.1 mg/dL (1.6-2.6); Phosphorous 4.7 mg/dL (2.7-4.5); Potassium 4.3 mEq/L (3.5-5.1)
[2018-10-23] MEDS: Ipratropium/Albuterol Neb 3 ML IH SCH ×5 (03:52→19:54)
[2018-10-23] MEDS: Insulin LISPRO 300 UNITS/3 ML VIAL SQ SCH ×3 (05:54→17:50)
[2018-10-23] MEDS: *HR* Heparin 5,000 UNIT/ML VIAL SQ SCH ×3 (05:58→21:03)
[2018-10-23] MEDS: Budesonide/Formoterol 160/4.5 1 PUFF INH IH SCH ×2 (07:44→19:54)
[2018-10-23] MEDS: metOLazone 5 MG TABLET PO SCH (08:46)
[2018-10-23] MEDS: hydrALAZINE 25 MG TABLET PO SCH ×3 (08:47→23:50)
[2018-10-23] MEDS: Aspirin 81 MG TAB.CHEW PO SCH (08:47)
[2018-10-23] MEDS: Vancomycin Oral Soln 125 MG/2.5 ML UDC PO SCH ×4 (08:47→21:03)
[2018-10-23] MEDS: Bumetanide 1 MG/4 ML VIAL IVP SCH ×2 (08:48→16:46)
[2018-10-23] MEDS: Cefepime HCl 1,000 MG in Water for inj. (sterile) 20 ML IVP SCH (08:51)
[2018-10-23] MEDS: MetroNIDAZOLE 500 MG/100 ML 500 MG/100 ML BAG IVPB SCH (08:53)
[2018-10-23] MEDS: Famotidine 20 MG/2 ML VIAL IVP SCH (08:53)
[2018-10-23] MEDS: traMADol 50 MG TABLET PO PRN ×2 (09:37→15:47)
--- NOTE | 2018-10-23 09:37 | Internal Med Progress Note ---
<Radha Landeros - Last Filed: 10/23/18 12:20> Hospitalist Progress Note - Encounter Date of Encounter: 10/23/18 - Exam Vitals: Temp Pulse Resp BP Pulse Ox 97.6 F 53 22 124/53 94 10/23/18 11:45 10/23/18 11:45 10/23/18 11:45 10/23/18 11:45 10/23/18 11:45 - Assessment and Plan (1) Congestive heart failure Current Visit: No Status: Acute (2) Allergy to multiple antibiotics Current Visit: Yes Status: Acute (3) NSTEMI (non-ST elevated myocardial infarction) Current Visit: Yes Status: Acute (4) CKD (chronic kidney disease) stage 3, GFR 30-59 ml/min Current Visit: Yes Status: Acute (5) C. difficile diarrhea Current Visit: Yes Status: Acute (6) DM type 2 (diabetes mellitus, type 2) Current Visit: Yes Status: Chronic (7) Shock Current Visit: Yes Status: Resolved (8) Pneumonia Current Visit: Yes Status: Suspected (9) Venous stasis dermatitis of right lower extremity Current Visit: Yes Status: Acute (10) Metabolic encephalopathy Current Visit: Yes Status: Acute - Time Spent with Patient Total time spent is greater than 50% in coordination of care (as documented) at patient's floor/unit and/or counseling patient: Internal Medicine: Result - Labs CBC & Chem 7: 10/23/18 01:09 10/23/18 01:09 Labs: Short CBC 10/23/18 Range/Units 01:09 WBC 4.2 L (4.3-11.1) K/mcL Hgb 8.4 L (12.9-16.9) g/dL Hct 27.8 L (37.5-50.1) % Plt Count 74 L (140-400) K/mcL Neutrophils # 2.4 (1.6-8.9) K/mcL BMP 10/23/18 01:09 Sodium 139 Potassium 4.3 Chloride 111 H Carbon Dioxide 20 L BUN 49 H Creatinine 2.63 H Glucose 94 Calcium 7.8 L - ABG Interpretation ABG results: ABG ABG pH 7.39 pH Units (7.32-7.45) 10/15/18 04:24 ABG pCO2 36 mmHg (35-45) 10/15/18 04:24 ABG pO2 100 mmHg (85-104) 10/15/18 04:24 ABG O2 Saturation 98 % (95-98) 10/15/18 04:24 PT/INR, D-dimer PT 15.9 Seconds (9.4-12.1) H 10/13/18 03:40 - Impressions Impressions Chest X-Ray 10/22/18 09:00 IMPRESSION: Small to moderate bilateral pleural effusions with bibasilar airspace opacities which could represent edema, pleural effusion, atelectasis, and/or infection. D/ / Papa Sousa / Papa Sousa Interpreting Provider: Papa Sousa Consult Discharge Plan - Plan Additional Instructions: Follow up in wound care 1 week s/p discharge with Dr. Herrera Cleanse right foot with warm water and soap daily. Cover ulcer with calcium alginate, 4x4 dry gauze, and kerlix. Secure with medipore tape. Referrals: Antonio Savage, [employer] [Advanced Practice Nurse] - (office will call patient at home with follow up appointment) Davion Ruelas DO [Partnered Physician] - 10/29/18 1:00 pm - Attending Attestation I examined this patient and my medical decision-making was reviewed with the Resident Physician Dr Cardenas. I agree with the documented findings, disposition and treatment plan as described except to the extent set forth below. Mr Sanford is admitted for resp and renal failure, C Diff and NSTEMI awake, no family present, resident and RN at bedside, He was weaned to hs home 4L NC but despite normal 02 sats, felt sob and very nervous to no tbe on bipap.states diarrhea is getting better, no abd pain, fevers or chills. sob unchanged and remains on bipap. He is on oxymask at same flow rate currently and feeling anxious but o2 sats are upper 90s %. Pt encouraged that his resp status is currently stable. Denies cp, pressure, cough or abd p/n/v. One bm yesterday. Encouraged pt to eat as his appetite is poor and he is not doing so. gen- alert, awake,appears stated age cv- reg rate and rhythm, normal s1,s2, 1+ pitting bl le, + jvd lungs- ctabl, ant/ lat avendaño. no wheezing, rhonchi or crackles, normal resp effort on oxymask abd- soft, non tender, non distended neuro- AAOx3 Cdiff-, recurrent- appreciate ID recs, IV fagly + PO vanc Pna, organism uk- cont cefepime, appreciate ID recs NSTEMI s/p stent- DAPT, allergy to statin, fu cards outpt GILES on CKD 3- appreciate nephro input, cont diuresis Acute systolic CHF- cont diuresis, no BB due to low BPs, meds as bp/creat permits this admission Acute on chronic Hypoxic resp failure- cont treatment as above, cont to wean o2 as able to home o2 Thrombocytopenia without active bleeding- cont to monitor on asa, plavix given risk v benefit with new stent/DAPT dispo- family now agreeable to snf , SW beginning to work on placement plan <Jason Cardenas - Last Filed: 10/23/18 17:17> Hospitalist Progress Note - Encounter Date of Encounter: 10/23/18 Time of Encounter: 09:00 - Subjective Interval History: Patient was seen and examined at bedside this morning with nursing present. He remained on BiPAP at time of exam for nursing reported that he was stable on 4 L this morning. Continues to feel short of breath, have attempted to wean him off BiPAP, placed him on a nonrebreather this afternoon. Oxygen saturations have been stable since that time. Denies cough, chest pain, nausea, vomiting, fever, chills. Diarrhea improving, last bowel movement yesterday. Fluid status improving, net output 400 this morning. - Exam Vitals: Temp Pulse Resp BP Pulse Ox 97.9 F 69 26 125/64 98 10/23/18 07:45 10/23/18 07:45 10/23/18 07:48 10/23/18 07:45 10/23/18 07:48 Exam: General: Not in acute distress at this time, a and O 3 Head: Atraumatic, normocephalic Eyes: Spontaneously opens eyes, EOMI, anicteric ENT: Mucous membranes dry, oropharynx clear Neck: Soft, supple, no nuchal rigidity CV: Rhythm regular, bradycardic, normal S1, S2 no murmurs Respiratory: Coarse breath sounds bilaterally, poor inspiratory effort, rales and rhonchi noted diffusely Abdomen: Soft, nontender, nonrigid, no rebound tenderness Extremities: Left BKA noted, patient is edematous bilaterally, evidence of v enous stasis dermatitis in the right - Assessment and Plan (1) C. difficile colitis Current Visit: Yes Status: Acute Assessment and Plan: Treated back in June for C. difficile Stool C. difficile toxin a+b positive This is his first occurrence The patient was septic on admission, respiratory rate 27, WBC 15.7, significant bandemia Has been afebrile White count has resolved CT abdomen showed thickened sigmoid colon, no evidence of toxic megacolon Infectious disease following, appreciate recommendations Diarrhea is improving Plan: Continue oral vancomycin, six-week course Continue with IV Flagyl (2) Acute on chronic kidney failure Current Visit: Yes Status: Acute Assessment and Plan: Known history of CKD 3 Baseline Cr 1.5 Developed an GILES during admission Highest Cr 2.97 Has had significantly decreased UOP Has been downtrending since then Creatinine 2.57 yesterday, up to 2.63 today I's and O's: -400 today, -500 yesterday Nephrology following, Appreciate Recs Plan: Continue to Diurese, on Bumex and metolazone Continue to trend BUN/Cr. Continue to monitor UOP (3) Acute decompensated heart failure Current Visit: Yes Status: Acute Assessment and Plan: Patient with history of diastolic heart failure, preserved ejection fraction Echo from May 2018 showed EF 60-65% Repeat echo this admission: EF 25% Acute decompensation likely secondary to NSTEMI Patient remained significantly fluid overloaded secondary to new systolic heart failure in addition to acute on chronic kidney failure Patient had pulmonary edema on chest x-ray, repeat CXR reveals interval worsening in edema vs bibasilar PNA, with bilateral pleural effusions The patient continues to want BiPAP, sats have been stable on 4 L nasal cannula We will continue to encourage the patient to wean off the BiPAP We will continue diuresis Due to chilango secondary to low blood pressure/heart rate (4) Pneumonia Current Visit: Yes Status: Suspected Assessment and Plan: CXR 10/15 showed consolidation Suspected to be pleural efusion but PNA cant be ruled out Procalcitonin was elevated to 53 during admission Repeat CXR showed improvement in bibasilar atelectasis vs PNA Patient respiratory status not improving Oxygen saturation stable but continues to require BiPap Diffuse wheezes present on Physical exam currently day 14 of cefepime ID following, appreciate Recs Repeat CXR today shows small to moderate bilateral pleural effusions with bibasilar airspace opacities which could represent edema, pleural effusion, atelectasis, infection MRSA swab negative Blood cultures 2 negative (5) Thrombocytopenia Current Visit: Yes Status: Acute Assessment and Plan: Continues to decline In the 130s at admission Stable since yesterday, 74 Appears to be chronically thrombocytopenic Cannot rule out HIT Patient does still require heparin for significant risk of DVT Evidence of active bleeding at this time We will continue to monitor (6) NSTEMI (non-ST elevated myocardial infarction) Current Visit: Yes Status: Acute Assessment and Plan: Patient presented with NSTEMI Troponins elevated up to 30 during admission Urgent LHC performed with stent placement DAPT initiated, has an allergy to Statin, no BB 2/2 hypotension Cardiology was following, has since signed off No chest pains currently Telemetry shows slow A.Fib Plan: Continuous telemetry (7) PVD (peripheral vascular disease) Current Visit: No Status: Chronic Assessment and Plan: Patient has a known history of PVD S/P Left BKA Currently has Venous stasis dermatitis with ulceration of right leg Ulcer dressing c/d/I Stasis dermatitis appears stable from day before Right lower extremity edema not improved from day before Plan: Continue would care Continue compression boot Continue diuresis (8) DM type 2 (diabetes mellitus, type 2) Current Visit: Yes Status: Chronic Assessment and Plan: Known history of type 2 diabetes Sugars and stable on admission Continue Accu-Cheks and sliding scale insulin (9) Hypertension Current Visit: Yes Status: Chronic Assessment and Plan: Patient has known history of hypertension Beta chilango on hold secondary to hypotension during admission Blood pressure has been stable since off pressors We will continue to monitor DVT Prophylaxis: SubQ Heparin - Time Spent with Patient Total time spent is greater than 50% in coordination of care (as documented) at patient's floor/unit and/or counseling patient: Internal Medicine: Result - Labs CBC & Chem 7: 10/23/18 01:09 10/23/18 01:09 Labs: Short CBC 10/23/18 Range/Units 01:09 WBC 4.2 L (4.3-11.1) K/mcL Hgb 8.4 L (12.9-16.9) g/dL Hct 27.8 L (37.5-50.1) % Plt Count 74 L (140-400) K/mcL Neutrophils # 2.4 (1.6-8.9) K/mcL BMP 10/22/18 10/23/18 07:56 01:09 Sodium 141 139 Potassium 4.3 4.3 Chloride 107 111 H Carbon Dioxide 21 L 20 L BUN 47 H 49 H Creatinine 2.57 H 2.63 H Glucose 93 94 Calcium 8.1 L 7.8 L - ABG Interpretation ABG results: ABG ABG pH 7.39 pH Units (7.32-7.45) 10/15/18 04:24 ABG pCO2 36 mmHg (35-45) 10/15/18 04:24 ABG pO2 100 mmHg (85-104) 10/15/18 04:24 ABG O2 Saturation 98 % (95-98) 10/15/18 04:24 PT/INR, D-dimer PT 15.9 Seconds (9.4-12.1) H 10/13/18 03:40 - Impressions Impressions Chest X-Ray 10/22/18 09:00 IMPRESSION: Small to moderate bilateral pleural effusions with bibasilar airspace opacities which could represent edema, pleural effusion, atelectasis, and/or infection. D/ / Papa Sousa / Papa Sousa Interpreting Provider: Papa Sousa <Radha Landeros M - Last Filed: 10/23/18 12:20> (1) Congestive heart failure Qualifiers: Heart failure type: systolic Heart failure chronicity: acute on chronic Qualified Code(s): I50.23 - Acute on chronic systolic (congestive) heart failure (6) DM type 2 (diabetes mellitus, type 2) Qualifiers: Diabetes mellitus dye tub operator insulin use: without longterm use Diabetes mellitus complication status: with skin complications Diabetes mellitus complication detail: with foot ulcer Qualified Code(s): E11.621 - Type 2 diabetes mellitus with foot ulcer; L97.509 - Non-pressure chronic ulcer of other part of unspecified foot with unspecified severity (8) Pneumonia Qualifiers: Pneumonia type: aspiration pneumonia Laterality: left Lung location: unspecified part of lung <Jason Cardenas M - Last Filed: 10/23/18 17:17> (2) Acute on chronic kidney failure Qualifiers: Acute renal failure type: unspecified Chronic kidney disease stage: stage 3 (moderate) Qualified Code(s): N17.9 - Acute kidney failure, unspecified; N18.3 - Chronic kidney disease, stage 3 (moderate) (4) Pneumonia Qualifiers: Pneumonia type: aspiration pneumonia Laterality: left Lung location: unspecified part of lung (8) DM type 2 (diabetes mellitus, type 2) Qualifiers: Diabetes mellitus dye tub operator insulin use: without dye tub operator use Diabetes mellitus complication status: with skin complications Diabetes mellitus complication detail: with foot ulcer Qualified Code(s): E11.621 - Type 2 diabetes mellitus with foot ulcer; L97.509 - Non-pressure chronic ulcer of other part of unspecified foot with unspecified severity (9) Hypertension Qualifiers: Hypertension type: essential hypertension Qualified Code(s): I10 - Essential (primary) hypertension
--- NOTE | 2018-10-23 12:43 | Infectious Disease Progress No ---
ID Progress Note Date of Encounter: 10/23/18 Time of Encounter: 12:40 - Subjective Subjective: Patient seen and examined. No acute events noted overnight. Per nursing, social and political studies professor is having difficult time finding the patient was place to go on discharge. The patient states he feels short of breath today. Denies cough. Denies fevers, chills, or rigors. Denies nausea, vomiting, or constipation. Reports one loose stool per day. Denies abdominal pain. Vázquez catheter remains pain. Complains of pain in his lower back and buttocks. Denies oral thrush or skin rashes. States his appetite is not very good. - Objective CBC & Chem 7: 10/24/18 01:10 10/24/18 01:10 - Exam Vitals: Temp Pulse Resp BP Pulse Ox 97.6 F 53 22 124/53 94 10/23/18 11:45 10/23/18 11:45 10/23/18 11:45 10/23/18 11:45 10/23/18 11:45 Exam: Head: Atraumatic, normal inspection, normocephalic. Eye: EOMI, PERRLA, no scleral icterus noted. ENT: Mucous membranes moist. No odontogenic infection noted. Neck: Normal inspection, no meningismus. Respiratory: Clear/diminished to auscultation. No rales, respiratory distress, rhonchi, or wheezes noted. Cardiovascular: Regular rate and rhythm, S1 and S2 audible. No murmurs, rubs, or gallops. GI: Soft, nondistended, normal bowel sounds. Extremities:No joint swelling, pedal edema, or tenderness noted. Left AKA stump without abnormality. Right foot dressing clean, dry, and intact. Back: Normal inspection. No vertebral tenderness noted. Neurological: Alert, oriented 3, no focal deficits. Psychiatric: normal affect, normal mood. Skin: Dry, intact, warm. Normal color. No rashes. - Assessment and Plan (1) Shock Current Visit: Yes Status: Resolved The patient had 3 sepsis criteria plus hypotension requiring vasopressors, acute respiratory failure, acute kidney injury, and altered mental status. Cardiogenic versus septic. Improved. Hypotension resolved. Not currently requiring vasopressors. Renal function back to baseline. Afebrile. Leukocytosis resolved. Blood cultures drawn 10/09/18 are negative 2 sets. SNOMED Code(s): 15058899 (2) C. difficile diarrhea Current Visit: Yes Status: Acute Second recurrence. Patient was treated in June with a six-week vague taper. C. difficile PCR positive, but EIA was negative. CT abdomen and pelvis showed wall thickening of the sigmoid colon, but no toxic megacolon or ileus. Severe initially. Improved. Patient reports one loose stool per day. Currently on oral vancomycin. SNOMED Code(s): 0073342746727 (3) Pneumonia Current Visit: Yes Status: Suspected Causative organism: Unclear. Chest x-ray 10/11/18 showed consolidation that was likely a pleural effusion, but cannot rule out pneumonia. Repeat chest x-ray 10/14/18 showed improving bibasilar atelectasis or pneumonia. SPECIAL EDUCATION PARAEDUCATOR evaluation noted aspiration and recommended regular textures with nectar thick liquids. Aspiration is on the differential. MRSA nasal screen was positive. Completed 7 day course of IV Zosyn. Currently on IV cefepime day 13. Qualifiers: Pneumonia type: aspiration pneumonia Laterality: left Lung location: unspecified part of lung SNOMED Code(s): 977469978 (4) Metabolic encephalopathy Current Visit: Yes Status: Acute Likely secondary to sepsis. Improved. SNOMED Code(s): 07017432 (5) NSTEMI (non-ST elevated myocardial infarction) Current Visit: Yes Status: Acute Troponin peaked at 30.47. Cardiology consulted. Status post left heart catheter with bare metal stent placement in the saphenous vein graft OM1. SNOMED Code(s): 30788510 (6) Congestive heart failure Current Visit: No Status: Acute TTE showed an EF of 25%, which is a significant drop from his previous EF documented 05/2018 (60-65%). Cardiology consult and following. Qualifiers: Heart failure type: systolic Heart failure chronicity: acute on chronic Qualified Code(s): I50.23 - Acute on chronic systolic (congestive) heart failure SNOMED Code(s): 70321487 (7) DM type 2 (diabetes mellitus, type 2) Current Visit: Yes Status: Chronic Recommend aggressive glucose monitoring and control to promote wound healing and prevent reinfection. Management per the primary team. Qualifiers: Diabetes mellitus intermediate insulin use: without intermediate use Diabetes mellitus complication status: with skin complications Diabetes mellitus complication detail: with foot ulcer Qualified Code(s): E11.621 - Type 2 diabetes mellitus with foot ulcer; L97.509 - Non-pressure chronic ulcer of other part of unspecified foot with unspecified severity SNOMED Code(s): 67061529 (8) Venous stasis dermatitis of right lower extremity Current Visit: Yes Status: Chronic SNOMED Code(s): 43635293 (9) CKD (chronic kidney disease) stage 3, GFR 30-59 ml/min Current Visit: Yes Status: Acute Serum creatinine appears to be at baseline. Monitor closely. Dose adjust medications and avoid nephrotoxins as able. SNOMED Code(s): 365789838 (10) Allergy to multiple antibiotics Current Visit: Yes Status: Acute Zithromax, Ceclor, Keflex, Cipro, erythromycin, clindamycin, moxifloxacin, strep tomycin, and Bactrim-hives SNOMED Code(s): 056338627382216 - Recommendations Recommendations: O2 management per the primary and pulmonary teams. Continue cefepime 2 g IV every 12 hours. Continue Flagyl 500 mg 3 times a day, but transitioned to oral. Continue vancomycin 125 mg by mouth 4 times a day. Duration of treatment depends on the clinical picture. Recommend treating with IV cefepime and oral Flagyl through 10/24/18. Will need a total of 6 weeks of oral vancomycin with a taper as outlined below: 125 mg orally four times daily for 14 days (through 10/23), then 125 mg orally twice daily for 7 days (through 10/30), then 125 mg orally once daily for 7 days (through 11/06), then 125 mg orally every 2 or 3 days for 2 weeks (through 11/20). Monitor renal function and dose adjust antibiotics. Contact precautions per hospital policy. Consult Discharge Plan - Plan Additional Instructions: Follow up in wound care 1 week s/p discharge with Dr. Herrera Cleanse right foot with warm water and soap daily. Cover ulcer with calcium alginate, 4x4 dry gauze, and kerlix. Secure with medipore tape. Referrals: Antonio Savaeg, [employer]. VICE PRESIDENT [employer] [Advanced Practice Nurse] - (office will call patient at home with follow up appointment) Davion Ruelas DO [Partnered Physician] - 10/29/18 1:00 pm - Attending Attestation I have personally performed a face to face evaluation on this patient. I have reviewed and agree with the care plan. History and Exam by me shows: Assessment and plan: 1. shock - cardiogenic? improved. off dopamine 2. Pneumonia - likely aspiration; improved 3. C diff colitis first recurrnece - will treat for 6 weeks with tapering dose through November 20 4. lower extremities venous stasis 5. third spacing 6. Metabolic encephalopathy Recommendations: continue cefepime and flagyl through 10/24 continue oral vanc [id number] we will do tapering dose through November 20 Repeat CXR dose adjust cefepime based on CrCl
--- NOTE | 2018-10-23 14:47 | Nephrology Progress Note ---
Date of Encounter: 10/23/18 Time of Encounter: 14:00 - Assessment and Plan (1) Acute on chronic kidney failure Current Visit: Yes Status: Acute He has ongoing acute kidney injury on chronic kidney disease, but is making urine. He has a low ejection fraction as was noticed on the recent echo, and last weekend he was so edematous that diuretics were started, and his renal function actually started to improve. His urine output also improved, however he remains very edematous with anasarca still at this point. His creatinine bumped slightly today, but this was not significant. I recommend continuing the potent dosing of Bumex 1 mg IV twice a day with metolazone. If his creatinine rises further tomorrow, I will plan to stop the diuretics. An option for his fluid removal may involve ultrafiltration if diuretics cannot be tolerated. I recommend a renal protective/conservative strategy by avoiding nephrotoxic agents as able, strict I's and O's, daily weights, renal diet when able, and renal dosing. My colleague Dr. Anders will be on-call starting tomorrow, and I will provide a thorough handoff. Thank you Qualifiers: Acute renal failure type: unspecified Chronic kidney disease stage: stage 3 (moderate) Qualified Code(s): N17.9 - Acute kidney failure, unspecified; N18.3 - Chronic kidney disease, stage 3 (moderate) (2) Anemia Current Visit: Yes Status: Chronic Goal hemoglobin is 10-11 in the setting of kidney disease. Transfusion parameters as per primary. Qualifiers: Anemia type: due to chronic kidney disease Chronic kidney disease stage: stage 3 (moderate) Qualified Code(s): N18.3 - Chronic kidney disease, stage 3 (moderate); D63.1 - Anemia in chronic kidney disease (3) Hypertension Current Visit: Yes Status: Chronic Hold any JESSY inhibitor or angiotensin receptor chilango due to the GILES. Qualifiers: Hypertension type: essential hypertension Qualified Code(s): I10 - Essential (primary) hypertension (4) Acute exacerbation of CHF (congestive heart failure) Current Visit: Yes Status: Acute He has a very low ejection fraction, and this suggests his GILES may be better treated with the presumption of cardiorenal syndrome. Continue/optimize diuretics today but if his SCr rises tomorrow, then I'd hold the diuretics. Another option may be initiation of Ultrafiltration. Qualifiers: Heart failure type: systolic Qualified Code(s): I50.23 - Acute on chronic systolic (congestive) heart failure Subjective Principal diagnosis: CHF, AMI, C-Diff, GILES Interval history: The patient was seen/examined earlier today. He affirmed still having some shortness of breath, which was described as about the same as yesterday, and he said that his swelling remains the same as well. He did not affirm active vomiting, diarrhea or chest pain. Objective - Vital Signs Vital signs: Vital Signs Temp Pulse Resp BP Pulse Ox 10/23/18 11:45 97.6 F 53 22 124/53 94 10/23/18 11:17 18 95 10/23/18 07:48 26 98 10/23/18 07:45 97.9 F 69 22 125/64 95 10/23/18 04:19 98.8 F 59 20 127/40 97 10/23/18 03:53 18 98 10/22/18 23:42 21 100 10/22/18 23:25 97.7 F 56 29 129/46 94 10/22/18 20:11 18 97 10/22/18 19:54 98.3 F 53 20 120/46 96 10/22/18 17:03 63 10/22/18 16:46 97.8 F 63 22 122/72 96 10/22/18 15:34 22 98 10/22/18 15:33 20 98 Intake and Output 10/22/18 10/23/18 10/23/18 23:59 07:59 15:59 Intake Total 100 / 440 100 / 220 120 / 220 Output Total 535 / 985 500 / 600 100 / 600 Balance -435 / -545 -400 / -380 20 / -380 Intake: IV Fluids 100 / 320 100 / 100 Flagyl Premix 500 MG/100 ML 500 100 / 300 100 / 100 mg In 100 ml @ 100 mls/hr IVPB Q8HR [facility] Rx#:[id number] Oral 120 / 120 Output: Catheter 535 / 635 500 / 600 100 / 600 Other: Meal Lunch Percent of Meal Consumed 5% Stool Size Moderate Stool Consistency loose Stool Color Brown # Bowel Movement Diapers 1 Blood Glucose* 111 102 122 - General Appearance Exam: General appearance: Present: well-developed, well-nourished, obese, fatigue, frail EENT: Present: ATNC, PERRL, mucous membranes moist Neck: Present: no JVD Respiratory: Present: no kyphosis, rhonchi Cardiology: Present: 2-3+ pretibial pitting edema of the legs and 2+ pitting hand edema, normal S1, normal S2 Gastrointestinal: Present: normoactive bowel sounds, no tenderness, obese Integumentary: Present: warm and dry, ecchymotic Neurologic: Present: no focal deficit, alert and oriented x3 Musculoskeletal: Present: no erythema, no cyanosis Psychiatric: Present: mood/affect appropriate, cooperative - Lab 10/24/18 01:10 10/24/18 01:10 Consult Discharge Plan - Plan Additional Instructions: Follow up in wound care 1 week s/p discharge with Dr. Herrera Cleanse right foot with warm water and soap daily. Cover ulcer with calcium alginate, 4x4 dry gauze, and kerlix. Secure with medipore tape. Referrals: Antonio Savage, CYTOGENETIC TECHNICIAN [Advanced Practice Nurse] - (office will call patient at home with follow up appointment) Davion Ruelas DO [Partnered Physician] - 10/29/18 1:00 pm
[2018-10-23] MEDS: metroNIDAZOLE 500 MG TABLET PO SCH ×2 (15:46→21:03)
[2018-10-23] MEDS: Melatonin 3 MG TABLET PO PRN (21:02)
[2018-10-24] MEDS: Insulin LISPRO 300 UNITS/3 ML VIAL SQ SCH ×5 (00:04→22:00)
[2018-10-24] MEDS: Ipratropium/Albuterol Neb 3 ML IH SCH ×7 (00:24→23:35)
[2018-10-24 01:22] LABS: Basophils % 1.1 %; Eosinophils # 0.2 K/mcL (0.0-0.6); Eosinophils % 4.5 %; Hematocrit 26.2 % (37.5-50.1); Hemoglobin 7.9 g/dL (12.9-16.9); Immature Granulocytes % 1.4 % (0-4); Lymphocytes % 23.7 %; Mean Corpuscular HGB Conc 30.2 g/dL (31.6-35.5); Mean Corpuscular Volume 96.3 fL (83.0-100.0); Mean Platelet Volume 10.7 fL (9.4-12.4); Monocytes # 0.5 K/mcL (0.0-1.3); Monocytes % 12.7 %; Red Blood Count 2.72 M/mcL (4.19-5.50); Red Cell Distribution Width 17.3 % (11.5-14.5); Segmented Neutrophils % 56.6 %; White Blood Count 3.6 K/mcL (4.3-11.1)
[2018-10-24 01:23] LABS: Lymphocytes # 0.9 K/mcL (0.6-4.6); Platelet Count 71 K/mcL (140-400)
[2018-10-24 01:34] LABS: Calcium 7.8 mg/dL (8.6-10.3); Magnesium 2.1 mg/dL (1.6-2.6); Phosphorous 5.1 mg/dL (2.7-4.5); Potassium 4.1 mEq/L (3.5-5.1)
[2018-10-24] MEDS: *HR* Heparin 5,000 UNIT/ML VIAL SQ SCH ×3 (06:00→21:35)
[2018-10-24] MEDS: Budesonide/Formoterol 160/4.5 1 PUFF INH IH SCH ×2 (07:30→19:45)
[2018-10-24] MEDS: metroNIDAZOLE 500 MG TABLET PO SCH ×3 (08:45→21:36)
[2018-10-24] MEDS: Vancomycin Oral Soln 125 MG/2.5 ML UDC PO SCH ×4 (08:45→21:36)
[2018-10-24] MEDS: Aspirin 81 MG TAB.CHEW PO SCH (08:45)
[2018-10-24] MEDS: hydrALAZINE 25 MG TABLET PO SCH ×3 (08:45→21:36)
[2018-10-24] MEDS: Famotidine 20 MG/2 ML VIAL IVP SCH (08:46)
[2018-10-24] MEDS: Cefepime HCl 1,000 MG in Water for inj. (sterile) 20 ML IVP SCH (08:46)
--- NOTE | 2018-10-24 08:49 | Infectious Disease Progress No ---
ID Progress Note Date of Encounter: 10/24/18 Time of Encounter: 09:00 - Subjective Subjective: Patient seen and examined at the bedside. He is off BiPAP currently on 3 L of nasal cannula satting at 95%. Heart rate of 63, blood pressure 146/71. He endroses no acute distress, shortness of breath, no bowel movements in the last 24 hours. He is A&O*3, moving his extremities, clear speech and responds to question in an appropriate manner. Today he has completed 14 day course of cefepime 2 g IV every 12 hours and Flagyl IV 500 mg every 8 hours. Continues to be on by mouth vancomycin tapering dose for his C diff through November 20 - Objective CBC & Chem 7: 10/27/18 05:28 10/27/18 05:28 - Exam Vitals: Temp Pulse Resp BP Pulse Ox 97.4 F L 62 19 146/71 97 10/24/18 07:47 10/24/18 07:47 10/24/18 07:47 10/24/18 07:47 10/24/18 07:47 Exam: Gen.: Vitals noted. No acute distress. A&O*3. On 3L NC satting at 98%. HEENT: oropharynx clear, Normocephalic, atraumatic, MMM Neck: supple, no JVD, no lymphadenopathy, no carotid bruit. Cardiac: RRR, no murmur, +S1/S2, No BLE edema, PMI non-displaced Pulmonary: bilateral wheezing, no rales or rhonchi, equal chest expansion Abdomen: soft, nontender, BS noted, no guarding, undistended. No organomegaly, no pulsatile masses, Skin: R leg cellulites drapped in bandage, warm and dry Extremities: Left leg amputated, venous stasis of the R leg drapped in Bol[place]ar Wrap MSK: ROM not assessed. no joint swelling noted, gait not assessed while in bed. Non tender calf or clubbing, no cyanosis/clubbing/ or edema Neuro: A&O, moves all extremities, no focal deficits, sensation intact - Assessment and Plan (1) Metabolic encephalopathy Current Visit: Yes Status: Acute - Seems to have improved since the last time I saw him. Patient has been stepped down from the ICU to - was likely multifactorial due to sepsis , with GILES , s/p intubation and discontinuation of versed. Patient also had hydrostatic pulmonary edema with a reduced EF of 25 % which is unchanged from his previous Echo. -patient is A*O to person, place and time. -continue Abx , continue on Bumex 1 mg IV BID. SNOMED Code(s): 13133335 (2) Shock Current Visit: Yes Status: Resolved -Resolved , patient currently extubated and off pressors -Was Likely cardiogenic in nature -Patient was transferred from [facility] to ICU because of diarrheal episodes for the past 2 weeks accompanied by abdominal pain -Pertinent Vitals /Labs on admission: Temp: 99.9, Pulse: 97, RR: 27, WBC: 15.7, Band neutrophils 70%, Lactate : 2.1, BNP: 2898. -Pertinent Vitals /Labs now: Temp: 97.8, Pulse: 69, RR: 14, WBC: 4.1 -He also has a right leg cellulitis- no evidence of any bleeding or serosanguineous discharge -10/09/18 Chest x-ray showed bilateral mild and lower lung airspace disease and bilateral pleural effusion with concerns for pulmonary edema -10/10/18 Abdomen /Pelvic CT revealed wall thickening of the sigmoid colon likely related to lack of distention. Correlation for colitis is recommended -Finished his 14 day course of [id number] IV q12h and Flagyl IV 500mg q8h today PLAN -Continue PO Vancomycin tapering dose through November 20 for a total of 6 weeks SNOMED Code(s): 89321165 (3) C. difficile diarrhea Current Visit: Yes Status: Acute -Patient has a history of associated diarrhea . -He was treated in the hospital in the month of June for C. difficile and was on discharged vancomycin taper. -Has been afebrile since admission, with current white blood count of 5.3 . -Stool C. difficile toxin A&B was detected . -CT abdominal pelvis did not show any evidence for toxic megacolon but there was wall thickening of the sigmoid colon -Patient had 1 watery bowel movement yesterday but not today so far. PLAN: -Continue vancomycin for 6 weeks. Tapering dose through November 20 -Infectious disease will signoff for now. SNOMED Code(s): 2701109655024 (4) Pneumonia Current Visit: Yes Status: Resolved Etiology unknown Procalcitonin significantly elevated at 53.1 on admission. on physical exam he has bilateral wheezes. patient on 3L satting at 93% 10/11/18: CXR Consolidation is likely pleural efusion but cannot rule out pneumonia at this time 10/14/18: CXR Improving bibasilar atelectesis or PNA -Patient finished a 14 day course of cefepime and Flagyl - Qualifiers: Pneumonia type: aspiration pneumonia Aspiration pneumonia type: unspecified Laterality: left Lung location: unspecified part of lung Qualified Code(s): J69.0 - Pneumonitis due to inhalation of food and vomit SNOMED Code(s): 732531282 (5) NSTEMI (non-ST elevated myocardial infarction) Current Visit: Yes Status: Acute Patient found to have significant elevation in his troponin with troponin less than upper limit of normal at [facility] and upon arrival to [place] was found to have troponin of 30.22 and repeat 30.47 * Echocardiogram limited was obtained which shows EF of 25% which is a significant drop from previous in 05/30/18 which had a EF of 60-65% * The patient does have a long history of cardiac disease and has undergone CABG prior * Patient underwent catheterization overnight with Dr. Velasquez and a bare metal stent was placed in the saphenous venous graft OM1 SNOMED Code(s): 98056333 (6) Congestive heart failure Current Visit: No Status: Acute - Patient has an acute decompensation of heart failure likely due to NSTEMI -Recent echocardiogram showed an EF of 25% which was a significant drop from his EF in 05/2018 when it was 60-65% -Patient has been switched from Lasix twice a day to 1 mg Bumex twice a day as per nephrology - Further management as per the ICU team Qualifiers: Heart failure type: systolic Heart failure chronicity: acute on chronic Qualified Code(s): I50.23 - Acute on chronic systolic (congestive) heart failure SNOMED Code(s): 46597059 (7) CKD (chronic kidney disease) stage 3, GFR 30-59 ml/min Current Visit: Yes Status: Acute -She has a history of CK D of a stage III -Patient has had a bump in his creatinine from 1.56 on admission to 2.42 . -Avoid nephrotoxic agent and renally dose steroids. SNOMED Code(s): 608448935 (8) Allergy to multiple antibiotics Current Visit: Yes Status: Acute Patient allergic to multiple antibiotics like Biaxin, Keflex, Levaquin, Zithromax and clindamycin SNOMED Code(s): 275967513724343 (9) DM type 2 (diabetes mellitus, type 2) Current Visit: Yes Status: Chronic Patient has a history of diabetes. Currently on low-dose sliding scale insulin Qualifiers: Diabetes mellitus continuous churn buttermaker insulin use: without fci use Diabetes mellitus complication status: with skin complications Diabetes mellitus complication detail: with foot ulcer Qualified Code(s): E11.621 - Type 2 diabetes mellitus with foot ulcer; L97.509 - Non-pressure chronic ulcer of other part of unspecified foot with unspecified severity SNOMED Code(s): 91107629 (10) Venous stasis dermatitis of right lower extremity Current Visit: Yes Status: Chronic -Venous stasis of the right lower extremity with no evidence of any bleeding or serosangunous discharge -looks stable at baseline SNOMED Code(s): 66748859 Consult Discharge Plan - Plan Additional Instructions: Follow up in wound care 1 week s/p discharge with Dr. Herrera Cleanse right foot with warm water and soap daily. Cover ulcer with calcium alginate, 4x4 dry gauze, and kerlix. Secure with medipore tape. Referrals: Antonio Savage, BRAND ANALYST [Advanced Practice Nurse] - (office will call patient at home with follow up appointment) Davion Ruelas, [Partnered Physician] - 10/29/18 1:00 pm - Attending Attestation I examined this patient and my medical decision-making was reviewed with the Resident Physician. I agree with the documented findings, disposition and treatment plan as described except to the extent set forth below. Assessment and plan: 1. shock - cardiogenic? improved. off dopamine 2. Pneumonia - likely aspiration; improved 3. C diff colitis first recurrnece - will treat for 6 weeks with tapering dose through November 20 4. lower extremities venous stasis 5. third spacing 6. Metabolic encephalopathy Recommendations: continue cefepime and flagyl through 10/24 continue oral vanc [id number] we will do tapering dose through November 20 Repeat CXR dose adjust cefepime based on CrCl
[2018-10-24] MEDS: traMADol 50 MG TABLET PO PRN ×3 (08:54→21:36)
--- NOTE | 2018-10-24 09:25 | Internal Med Progress Note ---
<Radha Landeros - Last Filed: 10/24/18 14:34> Hospitalist Progress Note - Encounter Date of Encounter: 10/24/18 - Exam Vitals: Temp Pulse Resp BP Pulse Ox 96.6 F L 62 18 149/63 92 10/24/18 11:08 10/24/18 11:08 10/24/18 11:09 10/24/18 11:08 10/24/18 11:09 - Assessment and Plan (1) Congestive heart failure Current Visit: No Status: Acute (2) Allergy to multiple antibiotics Current Visit: Yes Status: Acute (3) NSTEMI (non-ST elevated myocardial infarction) Current Visit: Yes Status: Acute (4) CKD (chronic kidney disease) stage 3, GFR 30-59 ml/min Current Visit: Yes Status: Acute (5) C. difficile diarrhea Current Visit: Yes Status: Acute (6) DM type 2 (diabetes mellitus, type 2) Current Visit: Yes Status: Chronic (7) Shock Current Visit: Yes Status: Resolved (8) Pneumonia Current Visit: Yes Status: Suspected (9) Venous stasis dermatitis of right lower extremity Current Visit: Yes Status: Chronic (10) Metabolic encephalopathy Current Visit: Yes Status: Acute - Time Spent with Patient Total time spent is greater than 50% in coordination of care (as documented) at patient's floor/unit and/or counseling patient: Internal Medicine: Result - Labs CBC & Chem 7: 10/24/18 01:10 10/24/18 01:10 Labs: Short CBC 10/24/18 Range/Units 01:10 WBC 3.6 L (4.3-11.1) K/mcL Hgb 7.9 L (12.9-16.9) g/dL Hct 26.2 L (37.5-50.1) % Plt Count 71 L (140-400) K/mcL Neutrophils # 2.0 (1.6-8.9) K/mcL BMP 10/24/18 01:10 Sodium 140 Potassium 4.1 Chloride 113 H Carbon Dioxide 22 L BUN 52 H Creatinine 2.71 H Glucose 105 Calcium 7.8 L - ABG Interpretation ABG results: ABG ABG pH 7.39 pH Units (7.32-7.45) 10/15/18 04:24 ABG pCO2 36 mmHg (35-45) 10/15/18 04:24 ABG pO2 100 mmHg (85-104) 10/15/18 04:24 ABG O2 Saturation 98 % (95-98) 10/15/18 04:24 PT/INR, D-dimer PT 15.9 Seconds (9.4-12.1) H 10/13/18 03:40 Consult Discharge Plan - Plan Additional Instructions: Follow up in wound care 1 week s/p discharge with Dr. Herrera Cleanse right foot with warm water and soap daily. Cover ulcer with calcium alginate, 4x4 dry gauze, and kerlix. Secure with medipore tape. Referrals: Antonio Savage, COIL FINISHER [Advanced Practice Nurse] - (office will call patient at home with follow up appointment) Davion Ruelas DO [Partnered Physician] - 10/29/18 1:00 pm - Attending Attestation I examined this patient and my medical decision-making was reviewed with the Resident Physician Dr Cardenas. I agree with the documented findings, disposition and treatment plan as described except to the extent set forth below. Mr Sanford is admitted for resp and renal failure, C Diff and NSTEMI awake, no family present, no sob on o2 NC, denies abd pain, n/v/d. remains with poor appetite gen- alert, awake,appears stated age cv- reg rate and rhythm, normal s1,s2, 1+ pitting bl le lungs- ctabl, ant/ lat avendaño. no wheezing, rhonchi or crackles, normal resp effort on O2 NC placed at his mouth as he prefers abd- soft, non tender, non distended neuro- AAOx3 Cdiff-, recurrent- appreciate ID recs, transitioned to PO flagyl per ID FOREIGN EXCHANGE CLERK recs 10/23, he completes course of flagyl this evening 10/24 + PO vanc as per ID taper schedule Pna, organism uk- cont cefepime with course complete after 10/24 doses, appreciate ID recs NSTEMI s/p stent- DAPT, allergy to statin, fu cards outpt GILES on CKD 3- appreciate nephro input, diuresis held by npehro 10/24, will fu am recs tomorrow regarding resuming Acute systolic CHF- diuresis as per nephro, no BB due to low BPs, meds as bp/creat permits this admission Acute on chronic Hypoxic resp failure, resolved, stable on home 4L- cont treatment as above, cont to wean o2 as able Thrombocytopenia without active bleeding- cont to monitor on asa, plavix given risk v benefit with new stent/DAPT dispo- family now agreeable to snf , SW beginning to work on placement plan <Jason Cardenas M - Last Filed: 10/24/18 18:56> Hospitalist Progress Note - Encounter Date of Encounter: 10/24/18 Time of Encounter: 09:00 - Subjective Interval History: Patient was seen and examined at bedside. Continues to report pain in his sacral decubitus ulcer, currently on tramadol. Patient has continued poor appetite and decreased oral intake. Patient remains nonoliguric however urine output has declined today. SPO2 stable on 4 L which is at baseline. Remains significant fluid overloaded based on exam. Creatinine did bump up yesterday, Bumex and metolazone have been held at this time. Patient on day 13 cefepime, day 13 oral vancomycin, patient switched to oral Flagyl last night,will complete Flagyl course this evening. Patient to be transferred out of [address] [place] [address] - Exam Vitals: Temp Pulse Resp BP Pulse Ox 97.4 F L 62 19 146/71 97 10/24/18 07:47 10/24/18 07:47 10/24/18 07:47 10/24/18 07:47 10/24/18 07:47 Exam: General: Not in acute distress at this time, a and O 3 Head: Atraumatic, normocephalic Eyes: Spontaneously opens eyes, EOMI, anicteric ENT: Mucous membranes dry, oropharynx clear Neck: Soft, supple, no nuchal rigidity CV: Rhythm regular, bradycardic, normal S1, S2 no murmurs Respiratory: Coarse breath sounds bilaterally, poor inspiratory effort, crackles noted in both lung bases Abdomen: Soft, nontender, nonrigid, no rebound tenderness Extremities: Left BKA noted, patient is edematous bilaterally, evidence of venous stasis dermatitis in the right - Assessment and Plan (1) Acute on chronic kidney failure Current Visit: Yes Status: Acute Assessment and Plan: Known history of CKD 3 Baseline Cr 1.5 Developed an GILES during admission Highest Cr 2.97 Remains nonoliguric Has been downtrending since then Creatinine 2.57--> 2.63--> 2.71 today Urine output declining, I's and O's: -730--> -545--> -220--> -150 today Nephrology following, Appreciate Recs Plan: DC Bumex and metolazone at this time Continue to trend BUN/Cr. Continue to monitor UOP Possible hemodialysis in future per nephrology (2) C. difficile colitis Current Visit: Yes Status: Acute Assessment and Plan: Treated back in June for C. difficile Stool C. difficile toxin a+b positive This is his first reccurrence The patient was septic on admission, respiratory rate 27, WBC 15.7, significant bandemia Has been afebrile White count has resolved CT abdomen showed thickened sigmoid colon, no evidence of toxic megacolon Infectious disease following, appreciate recommendations -Switched to oral Flagyl yesterday, will complete dose today Diarrhea is improving Plan: Continue oral vancomycin, plan for taper through November 20 (3) Acute decompensated heart failure Current Visit: Yes Status: Acute Assessment and Plan: Patient with history of diastolic heart failure, preserved ejection fraction Echo from May 2018 showed EF 60-65% Repeat echo this admission: EF 25% Acute decompensation likely secondary to NSTEMI Patient remained significantly fluid overloaded secondary to new systolic heart failure in addition to acute on chronic kidney failure Patient had pulmonary edema on chest x-ray, repeat CXR reveals interval worsening in edema vs bibasilar PNA, with bilateral pleural effusions Patient now tolerating 4 L nasal cannula, which is at baseline Plan -This on hold secondary to bumping creatinine -No beta chilango secondary to low heart rate -Allergy to statin -Continue with aspirin/Plavix for stent (4) Pneumonia Current Visit: Yes Status: Suspected Assessment and Plan: CXR 10/15 showed consolidation Suspected to be pleural efusion but PNA cant be ruled out Procalcitonin was elevated to 53 during admission Repeat CXR showed improvement in bibasilar atelectasis vs PNA Respiratory status improved SPO2 stable on 4 L, at baseline Crackles noted on exam, poor respiratory effort CXR 10/22: - shows small to moderate bilateral pleural effusions with bibasilar airspace opacities which could represent edema, pleural effusion, atelectasis, infection MRSA swab positive Blood cultures 2 negative Plan: -Patient will complete full course of cefepime on 10/24 (5) Thrombocytopenia Current Visit: Yes Status: Acute Assessment and Plan: Patient does not have signs or symptoms of bleeding Hemoglobin stable Platelet count 71 today, stable Continue to monitor Continue heparin in setting of significant DVT risk (6) NSTEMI (non-ST elevated myocardial infarction) Current Visit: Yes Status: Acute Assessment and Plan: Patient presented with NSTEMI Troponins elevated up to 30 during admission Urgent LHC performed with stent placement DAPT initiated, has an allergy to Statin, no BB 2/2 hypotension Cardiology was following, has since signed off No chest pains currently Telemetry shows slow A.Fib Plan: Continuous telemetry (7) PVD (peripheral vascular disease) Current Visit: No Status: Chronic Assessment and Plan: Patient has a known history of PVD S/P Left BKA Currently has Venous stasis dermatitis with ulceration of right leg Ulcer dressing c/d/I Stasis dermatitis appears stable from day before Right lower extremity edema not improved from day before Plan: Continue would care Continue compression boot Continue diuresis (8) DM type 2 (diabetes mellitus, type 2) Current Visit: Yes Status: Chronic Assessment and Plan: Known history of type 2 diabetes Sugars and stable on admission Continue Accu-Cheks and sliding scale insulin (9) Hypertension Current Visit: Yes Status: Chronic Assessment and Plan: Patient has known history of hypertension Beta chilango on hold secondary to hypotension during admission Blood pressure has been stable since off pressors We will continue to monitor DVT Prophylaxis: SubQ Heparin - Time Spent with Patient Total time spent is greater than 50% in coordination of care (as documented) at patient's floor/unit and/or counseling patient: Internal Medicine: Result - Labs CBC & Chem 7: 10/24/18 01:10 10/24/18 01:10 Labs: Short CBC 10/24/18 Range/Units 01:10 WBC 3.6 L (4.3-11.1) K/mcL Hgb 7.9 L (12.9-16.9) g/dL Hct 26.2 L (37.5-50.1) % Plt Count 71 L (140-400) K/mcL Neutrophils # 2.0 (1.6-8.9) K/mcL BMP 10/24/18 01:10 Sodium 140 Potassium 4.1 Chloride 113 H Carbon Dioxide 22 L BUN 52 H Creatinine 2.71 H Glucose 105 Calcium 7.8 L - ABG Interpretation ABG results: ABG ABG pH 7.39 pH Units (7.32-7.45) 10/15/18 04:24 ABG pCO2 36 mmHg (35-45) 10/15/18 04:24 ABG pO2 100 mmHg (85-104) 10/15/18 04:24 ABG O2 Saturation 98 % (95-98) 10/15/18 04:24 PT/INR, D-dimer PT 15.9 Seconds (9.4-12.1) H 10/13/18 03:40 <Radha Landeros M - Last Filed: 10/24/18 14:34> (1) Congestive heart failure Qualifiers: Heart failure type: systolic Heart failure chronicity: acute on chronic Qualified Code(s): I50.23 - Acute on chronic systolic (congestive) heart failure (6) DM type 2 (diabetes mellitus, type 2) Qualifiers: Diabetes mellitus director long term care insulin use: without director long term care use Diabetes mellitus complication status: with skin complications Diabetes mellitus complication detail: with foot ulcer Qualified Code(s): E11.621 - Type 2 diabetes mellitus with foot ulcer; L97.509 - Non-pressure chronic ulcer of other part of unspecified foot with unspecified severity (8) Pneumonia Qualifiers: Pneumonia type: aspiration pneumonia Laterality: left Lung location: unspecified part of lung <Jason Cardenas M - Last Filed: 10/24/18 18:56> (1) Acute on chronic kidney failure Qualifiers: Acute renal failure type: unspecified Chronic kidney disease stage: stage 3 (moderate) Qualified Code(s): N17.9 - Acute kidney failure, unspecified; N18.3 - Chronic kidney disease, stage 3 (moderate) (4) Pneumonia Qualifiers: Pneumonia type: aspiration pneumonia Laterality: left Lung location: unspecified part of lung (8) DM type 2 (diabetes mellitus, type 2) Qualifiers: Diabetes mellitus director long term care insulin use: without skilled nursing use Diabetes mellitus complication status: with skin complications Diabetes mellitus co mplication detail: with foot ulcer Qualified Code(s): E11.621 - Type 2 diabetes mellitus with foot ulcer; L97.509 - Non-pressure chronic ulcer of other part of unspecified foot with unspecified severity (9) Hypertension Qualifiers: Hypertension type: essential hypertension Qualified Code(s): I10 - Essential (primary) hypertension
--- NOTE | 2018-10-24 10:58 | Event Note ---
Date of Encounter: 10/24/18 Time of Encounter: 10:15 Patient awake and alert - moving to 2A today. Denies complaints. No acute events last several days. Slowing improving. Remains full code - Social work discussing placement with patient and family for rehab. Palliative currently not managing any symptoms and will sign off. Please call if needed.
--- NOTE | 2018-10-24 17:45 | Nephrology Progress Note ---
Date of Encounter: 10/24/18 Time of Encounter: 17:00 - Assessment and Plan (1) Acute on chronic kidney failure Current Visit: Yes Status: Acute Scr slightly worse today at 2.71, GFR 24 UOP noted at 700cc in the past 24hrs, not very impressive given with diuretics Contineut to avoid nephrotoxins if possible Diuretics discontinued but not sure the best option at this time, will hold off on resumption but will plan to in the am with the added benefit of iv albumin Will definitely discuss the possibility of UF/HD if warranted (pt has had HD/UF transiently in the past) but I fear that this would ultimately be just a temporary measure given poor EF and might not even work for this reason Qualifiers: Acute renal failure type: unspecified Chronic kidney disease stage: stage 3 (moderate) Qualified Code(s): N17.9 - Acute kidney failure, unspecified; N18.3 - Chronic kidney disease, stage 3 (moderate) (2) Anemia Current Visit: Yes Status: Chronic Qualifiers: Anemia type: due to chronic kidney disease Chronic kidney disease stage: stage 3 (moderate) Qualified Code(s): N18.3 - Chronic kidney disease, stage 3 (moderate); D63.1 - Anemia in chronic kidney disease (3) Hypertension Current Visit: Yes Status: Chronic Qualifiers: Hypertension type: essential hypertension Qualified Code(s): I10 - Essential (primary) hypertension (4) Acute exacerbation of CHF (congestive heart failure) Current Visit: Yes Status: Acute Qualifiers: Heart failure type: systolic Qualified Code(s): I50.23 - Acute on chronic systolic (congestive) heart failure Subjective Principal diagnosis: CHF, AMI, C-Diff, GILES Interval history: Interim noted, pt seen and examined well known to me from CKD management over t he years. Transferred from to 2A this evening, appears visibly dyspneic but still able to speak. Nurse at bedside Objective - Vital Signs Vital signs: Vital Signs Temp Pulse Resp BP Pulse Ox 10/24/18 17:07 97.5 F L 65 16 126/64 97 10/24/18 15:16 18 97 10/24/18 11:09 18 92 10/24/18 11:08 96.6 F L 62 16 149/63 96 10/24/18 07:47 97.4 F L 62 19 146/71 97 10/24/18 07:29 18 98 10/24/18 04:03 98.1 F 48 19 91/33 97 10/24/18 03:55 16 95 10/24/18 00:24 16 95 10/24/18 00:07 98.7 F 60 19 120/69 95 10/23/18 19:57 16 95 10/23/18 19:47 97.8 F 59 19 118/63 94 Intake and Output 10/24/18 10/24/18 10/24/18 07:59 15:59 23:59 Intake Total 100 / 100 Output Total 250 / 350 100 / 350 Balance -250 / -250 100 / -250 -100 / -250 Intake: Oral 100 / 100 Output: Catheter 250 / 350 100 / 350 Other: Meal Lunch Percent of Meal Consumed 15% # Bowel Movement Diapers 0 Weight 120.2 kg Blood Glucose* 100 129 115 Patient Weight 10/24/18 23:59 Weight 120.2 kg - General Appearance General appearance: Present: chronically ill, fatigue EENT: Present: ATNC, mucous membranes moist Neck: Present: no JVD, supple Additional Comments: decreased BS bilat Cardiology: Present: edema (LE/UE bilat), normal S1, normal S2 Gastrointestinal: Present: no tenderness, no guarding, obese Integumentary: Present: warm and dry Neurologic: Present: no focal deficit Musculoskeletal: Present: no deformities Psychiatric: Present: mood/affect appropriate, cooperative - Lab 10/24/18 01:10 10/24/18 01:10 Consult Discharge Plan - Plan Additional Instructions: Follow up in wound care 1 week s/p discharge with Dr. Herrera Cleanse right foot with warm water and soap daily. Cover ulcer with calcium alginate, 4x4 dry gauze, and kerlix. Secure with medipore tape. Referrals: Antonio Savage, PHARMACY TECHNICIAN INSTRUCTOR [Advanced Practice Nurse] - (office will call patient at home with follow up appointment) Davion Ruelas DO [Partnered Physician] - 10/29/18 1:00 pm
[2018-10-24] MEDS: Melatonin 3 MG TABLET PO PRN (21:35)
[2018-10-25] MEDS: Ipratropium/Albuterol Neb 3 ML IH SCH ×6 (03:37→23:20)
[2018-10-25] MEDS: *HR* Heparin 5,000 UNIT/ML VIAL SQ SCH ×3 (05:51→23:30)
[2018-10-25] MEDS: Budesonide/Formoterol 160/4.5 1 PUFF INH IH SCH ×2 (07:24→19:48)
--- NOTE | 2018-10-25 08:21 | Internal Med Progress Note ---
<Radha Landeros - Last Filed: 10/25/18 13:32> Hospitalist Progress Note - Encounter Date of Encounter: 10/25/18 - Exam Vitals: Temp Pulse Resp BP Pulse Ox 97.3 F L 72 17 115/63 94 10/25/18 11:06 10/25/18 07:07 10/25/18 11:34 10/25/18 11:06 10/25/18 11:34 - Assessment and Plan (1) Congestive heart failure Current Visit: No Status: Acute (2) Allergy to multiple antibiotics Current Visit: Yes Status: Acute (3) NSTEMI (non-ST elevated myocardial infarction) Current Visit: Yes Status: Acute (4) CKD (chronic kidney disease) stage 3, GFR 30-59 ml/min Current Visit: Yes Status: Acute (5) C. difficile diarrhea Current Visit: Yes Status: Acute (6) DM type 2 (diabetes mellitus, type 2) Current Visit: Yes Status: Chronic (7) Shock Current Visit: Yes Status: Resolved (8) Pneumonia Current Visit: Yes Status: Suspected (9) Venous stasis dermatitis of right lower extremity Current Visit: Yes Status: Chronic (10) Metabolic encephalopathy Current Visit: Yes Status: Acute - Time Spent with Patient Total time spent is greater than 50% in coordination of care (as documented) at patient's floor/unit and/or counseling patient: Internal Medicine: Result - Labs CBC & Chem 7: 10/25/18 07:59 10/25/18 07:59 Labs: Short CBC 10/25/18 Range/Units 07:59 WBC 4.7 (4.3-11.1) K/mcL Hgb 8.3 L (12.9-16.9) g/dL Hct 29.2 L (37.5-50.1) % Plt Count 78 L (140-400) K/mcL BMP 10/25/18 07:59 Sodium 140 Potassium 4.6 Chloride 110 H Carbon Dioxide 23 BUN 54 H Creatinine 3.57 H Glucose 131 H Calcium 8.3 L - ABG Interpretation ABG results: ABG ABG pH 7.39 pH Units (7.32-7.45) 10/15/18 04:24 ABG pCO2 36 mmHg (35-45) 10/15/18 04:24 ABG pO2 100 mmHg (85-104) 10/15/18 04:24 ABG O2 Saturation 98 % (95-98) 10/15/18 04:24 PT/INR, D-dimer PT 15.9 Seconds (9.4-12.1) H 10/13/18 03:40 Consult Discharge Plan - Plan Additional Instructions: Follow up in wound care 1 week s/p discharge with Dr. Herrera Cleanse right foot with warm water and soap daily. Cover ulcer with calcium alginate, 4x4 dry gauze, and kerlix. Secure with medipore tape. Referrals: Antonio Savage, CLINICAL STAFF EDUCATOR [Advanced Practice Nurse] - (office will call patient at home with follow up appointment) Davion Ruelas DO [Partnered Physician] - 10/29/18 1:00 pm - Attending Attestation I examined this patient and my medical decision-making was reviewed with the Resident Physician Dr Leonard. I agree with the documented findings, disposition and treatment plan as described except to the extent set forth below. Mr Sanford is admitted for resp and renal failure, C Diff and NSTEMI awake, no family present, overall feeling better, not sob with o2, no abd pain, n/v. He did eat a small amount of breakfast. goal is improved appetite gen- alert, awake cv- reg rate and rhythm, normal s1,s2, 1+ pitting bl le lungs- ctabl, ant/ lat avendaño. no wheezing, rhonchi or crackles, normal resp ef fort on O2 NC abd- soft, non tender, non distended, + bs neuro- AAOx3 Cdiff-, recurrent- flagyl course complete, vanc PO taper schedule, now BID vanc dosing through 10/30 with futher taper to completion as per ID Pna, organism uk- completed cefepime an dflagyl course 10/24 NSTEMI s/p stent- DAPT, CANNOT BE INTERRUPTED, allergy to statin, fu cards outpt GILES on CKD 3, worsening- appreciate nephro input, 10/25 begin bumex + albumin and monitor, it is being considered he may require permanent HD (trils of temp HD in past), could NOT interrupt DPT for permacath placement and nepro aware Acute systolic CHF- diuresis as per nephro, no BB due to low BPs, meds as bp/creat permits this admission Acute on chronic Hypoxic resp failure, resolved, stable on home 4L Thrombocytopenia without active bleeding- cont to monitor on asa, plavix given risk v benefit with new stent/DAPT dispo- family now agreeable to snf , SW beginning to work on placement plan <Kelly Leonard - Last Filed: 10/25/18 17:41> Hospitalist Progress Note - Encounter Date of Encounter: 10/25/18 Time of Encounter: 11:15 - Subjective Interval History: Patient seen examined at bedside he was in no acute distress resting comfortably. He reported improvement of shortness of breath and no diarrhea. He denied fever, chills, chest pain, shortness of breath, abdominal pain. He had no other complaints. - Exam Vitals: Temp Pulse Resp BP Pulse Ox 97.5 F L 72 17 120/67 94 10/25/18 07:07 10/25/18 07:07 10/25/18 07:27 10/25/18 07:07 10/25/18 07:27 Exam: Gen.: Vitals noted. No acute distress. AAOx3 HEENT: oropharynx clear, Normocephalic, atraumatic Cardiac: RRR, no murmur, +S1/S2 Pulmonary: course breath sounds, bilaterally, equal chest expansion Abdomen: soft, nontender, Bowel sounds noted, no guarding Extremities: left BKA, right LE nonpolluting edema, nontender calf, no cyanosis or clubbing Neuro: A&Ox3, moves all extremities, no focal deficits Psych: Appropriate mood and behavior - Assessment and Plan (1) Acute decompensated heart failure Current Visit: Yes Status: Acute Assessment and Plan: Patient with acute decompensated heart failure. Diastolic Heart failure with preserved ejection fraction. -05/2018 TTE: EF 60 to 65%. -TTE during this admission should EF 25%. -This is likely secondary to ischemic cardiomyopathy with patient having NSTEMI Plan -nephrology following, appreciate recommendations. Will order Bumex 1 mg b.i.d. given with albumin 25 Benjamin 30 minutes prior to Bumex administration, will give this for 3 days to see if urine output improves. -Continue to monitor daily weights, I&O -continue aspirin and Plavix, imdur, hydralazine (2) Acute on chronic kidney failure Current Visit: Yes Status: Acute Assessment and Plan: Acute on chronic kidney injury. Baseline creatinine 1.9-2.6. Patient of Dr. Anders. -Creatinine 3.57 worsening -poor urine output Plan -nephrology following, appreciate recommendations. Will order Bumex 1 mg b.i.d. given with albumin 25 Benjamin 30 minutes prior to Bumex administration, will give this for 3 days to see if urine output improves. -Continue avoid nephrotoxic agents and renal business medications -monitor serum creatinine and urine output (3) NSTEMI (non-ST elevated myocardial infarction) Current Visit: Yes Status: Acute Assessment and Plan: Patient presented with NSTEMI. -Troponins with a peak of 30 -[facility] s/p PCI of SVG to OM Plan -cardiology have recommended uninterrupted DAPT for one year. -Continue hydralazine and isosorbide -Patient has no allergy to statin -continue telemetry -cardiology follow up on discharge (4) Thrombocytopenia Current Visit: Yes Status: Acute Assessment and Plan: Patient has thrombocytopenia with platelets 78 -there is no obvious active bleeding at this time -platelets have remained stable during admission -will continue to monitor with and for bleeding (5) C. difficile diarrhea Current Visit: Yes Status: Acute Assessment and Plan: Patient has 1st recurrence of C diff that was last treated for/2018. -C diff positive -CT abdomen should thicken sigmoid colon, no evidence of toxic megacolon -patient is diarrhea has resolved and he denies abdominal pain Plan -currently on vancomycin pulse dose tapering. Stop vancomycin 125mg QID and changed to b.i.d. Continue taper through November 20. -Flagyl stopped today. -Infectious disease following, recommendations appreciated (6) Pneumonia Current Visit: Yes Status: Suspected Assessment and Plan: Pneumonia concerning on imaging. In the setting of shock when the patient initially presented. Chest x-ray showed consolidation concerning for pneumonia potentially. -Pro-calcitonin 53 -MRSA positive Plan -stop cefepime today as he is completed treatment -continue supplemental oxygen on baseline 4 L -continue duonebs PRN (7) Shock Current Visit: Yes Status: Resolved Assessment and Plan: Resolved. (8) DM type 2 (diabetes mellitus, type 2) Current Visit: Yes Status: Chronic Assessment and Plan: History of diabetes -glucose stable -continue low-dose sliding scale insulin -continue Accu check -continue diabetes diet (9) Venous stasis dermatitis of right lower extremity Current Visit: Yes Status: Chronic Assessment and Plan: Chronic DVT Prophylaxis: Heparin SQ - Time Spent with Patient Total time spent is greater than 50% in coordination of care (as documented) at patient's floor/unit and/or counseling patient: Internal Medicine: Result - Labs CBC & Chem 7: 10/25/18 07:59 10/25/18 07:59 - ABG Interpretation ABG results: ABG ABG pH 7.39 pH Units (7.32-7.45) 10/15/18 04:24 ABG pCO2 36 mmHg (35-45) 10/15/18 04:24 ABG pO2 100 mmHg (85-104) 10/15/18 04:24 ABG O2 Saturation 98 % (95-98) 10/15/18 04:24 PT/INR, D-dimer PT 15.9 Seconds (9.4-12.1) H 10/13/18 03:40 <Radha Landeros - Last Filed: 10/25/18 13:32> (1) Congestive heart failure Qualifiers: Heart failure type: systolic Heart failure chronicity: acute on chronic Qualified Code(s): I50.23 - Acute on chronic systolic (congestive) heart failure (6) DM type 2 (diabetes mellitus, type 2) Qualifiers: Diabetes mellitus jail insulin use: without long term care social worker use Diabetes mellitus complication status: with skin complications Diabetes mellitus complication detail: with foot ulcer Qualified Code(s): E11.621 - Type 2 diabetes mellitus with foot ulcer; L97.509 - Non-pressure chronic ulcer of other part of unspecified foot with unspecified severity (8) Pneumonia Qualifiers: Pneumonia type: aspiration pneumonia Laterality: left Lung location: unspecified part of lung <Kelly Leonard - Last Filed: 10/25/18 17:41> (2) Acute on chronic kidney failure Qualifiers: Acute renal failure type: unspecified Chronic kidney disease stage: stage 3 (moderate) Qualified Code(s): N17.9 - Acute kidney failure, unspecified; N18.3 - Chronic kidney disease, stage 3 (moderate) (6) Pneumonia Qualifiers: Pneumonia type: aspiration pneumonia Laterality: left Lung location: unspecified part of lung (8) DM type 2 (diabetes mellitus, type 2) Qualifiers: Diabetes mellitus long term care social worker insulin use: without jail use Diabetes mellitus complication status: with skin complications Diabetes mellitus complication detail: with foot ulcer Qualified Code(s): E11.621 - Type 2 diabetes mellitus with foot ulcer; L97.509 - Non-pressure chronic ulcer of other part of unspecified foot with unspecified severity
[2018-10-25 08:27] LABS: Red Cell Distribution Width 17.8 % (11.5-14.5)
[2018-10-25 08:29] LABS: Hematocrit 29.2 % (37.5-50.1); Hemoglobin 8.3 g/dL (12.9-16.9); Immature Platelets 5.3 % (1.1-6.1); Mean Corpuscular HGB Conc 28.4 g/dL (31.6-35.5); Mean Corpuscular Hemoglobin 28.7 pg (28.0-33.3); Mean Platelet Volume 11.2 fL (9.4-12.4); Red Blood Count 2.89 M/mcL (4.19-5.50); White Blood Count 4.7 K/mcL (4.3-11.1)
[2018-10-25] MEDS: Insulin LISPRO 300 UNITS/3 ML VIAL SQ SCH ×4 (08:42→22:04)
[2018-10-25] MEDS: Aspirin 81 MG TAB.CHEW PO SCH (08:42)
[2018-10-25] MEDS: hydrALAZINE 25 MG TABLET PO SCH ×3 (08:42→23:30)
[2018-10-25] MEDS: Famotidine 20 MG/2 ML VIAL IVP SCH (08:43)
[2018-10-25] MEDS: Cefepime HCl 1,000 MG in Water for inj. (sterile) 20 ML IVP SCH (08:43)
[2018-10-25] MEDS: Vancomycin Oral Soln 125 MG/2.5 ML UDC PO SCH ×3 (08:44→23:37)
[2018-10-25 08:45] LABS: Calcium 8.3 mg/dL (8.6-10.3); Magnesium 2.3 mg/dL (1.6-2.6); Phosphorous 6.3 mg/dL (2.7-4.5); Potassium 4.6 mEq/L (3.5-5.1)
[2018-10-25] MEDS ORDERED: Bumetanide 1 MG TABLET PO SCH (13:52)
--- NOTE | 2018-10-25 14:07 | Nephrology Progress Note ---
Date of Encounter: 10/25/18 Time of Encounter: 14:00 - Assessment and Plan (1) Acute on chronic kidney failure Current Visit: Yes Status: Acute SCr worsening at 3.57, GFR 17 despite diuretics held Will resume diuretics today with albumin Continue to avoid nephrotoxins if possible Discussed possible SENIOR PROJECT ACCOUNTANT if no improvement and pt would not give any answer as he wants to discuss with family even though he is aware of the risk of eminent respiratory failure Qualifiers: Acute renal failure type: unspecified Chronic kidney disease stage: stage 3 (moderate) Qualified Code(s): N17.9 - Acute kidney failure, unspecified; N18.3 - Chronic kidney disease, stage 3 (moderate) (2) Anemia Current Visit: Yes Status: Chronic Hgb noted at 8.3, will monitor Transfusion parameters as per primary. Qualifiers: Anemia type: due to chronic kidney disease Chronic kidney disease stage: stage 3 (moderate) Qualified Code(s): N18.3 - Chronic kidney disease, stage 3 (moderate); D63.1 - Anemia in chronic kidney disease (3) Acute exacerbation of CHF (congestive heart failure) Current Visit: Yes Status: Acute Will resume diuretics today along with albumin Continue fluid restriction Continue strict I/Os Qualifiers: Heart failure type: systolic Qualified Code(s): I50.23 - Acute on chronic systolic (congestive) heart failure (4) Hypertension Current Visit: Yes Status: Chronic Qualifiers: Hypertension type: essential hypertension Qualified Code(s): I10 - Essential (primary) hypertension Subjective Principal diagnosis: CHF, AMI, C-Diff, GILES Interval history: Pt seen and examined appears very comfortable but still visibly dyspneic but denies any pain or discomfort. UOP noted poor, discussed goals of care with pt wanting to discuss with his family Objective - Vital Signs Vital signs: Vital Signs Temp Pulse Resp BP Pulse Ox 10/25/18 11:34 17 94 10/25/18 11:06 97.3 F L 64 115/63 94 10/25/18 07:27 17 94 10/25/18 07:07 97.5 F L 72 20 120/67 93 10/25/18 03:40 18 96 10/25/18 03:23 98.7 F 59 16 121/65 97 10/25/18 01:50 97.7 F 65 16 113/68 97 10/24/18 23:37 18 90 10/24/18 20:42 97.7 F 67 16 118/68 95 10/24/18 19:50 18 94 10/24/18 17:07 97.5 F L 65 16 126/64 97 10/24/18 15:16 18 97 Intake and Output 10/24/18 10/25/18 10/25/18 23:59 07:59 15:59 Intake Total 420 / 540 220 / 220 Output Total 100 / 350 0 / 45 45 / 45 Balance 320 / 190 0 / 175 175 / 175 Intake: Oral 420 / 520 220 / 220 Output: Urine 0 / 0 Catheter 100 / 350 45 / 45 Urethral (Vázquez) 45 / 45 Other: Meal Lunch Percent of Meal Consumed 10% # Urine Diapers 1 # Bowel Movement Diapers 0 Weight 121 kg Blood Glucose* 115 146 158 Patient Weight 10/25/18 23:59 Weight 121 kg - Lab 10/26/18 09:56 10/26/18 09:56 Most recent lab results 10/25/18 07:59 Calcium 8.3 L Phosphorus 6.3 H Magnesium 2.3 Consult Discharge Plan - Plan Additional Instructions: Follow up in wound care 1 week s/p discharge with Dr. Herrera Cleanse right foot with warm water and soap daily. Cover ulcer with calcium alginate, 4x4 dry gauze, and kerlix. Secure with medipore tape. Referrals: Antonio Savage, MANAGER LOCAL [Advanced Practice Nurse] - (office will call patient at home with follow up appointment) Davion Ruelas DO [Partnered Physician] - 10/29/18 1:00 pm
[2018-10-25] MEDS: Albumin 25% 25gram/100mL 25 GM/100 ML IV.SOLN IVPB SCH ×3 (14:41→23:31)
[2018-10-25] MEDS ORDERED: Bumetanide 1 MG/4 ML VIAL IVP SCH (21:00)
[2018-10-25 21:45] LABS: ABG Base Excess -3 mEq/L (-2 to 3); ABG HCO3 25 mEq/L (21-27); ABG Oxygen Saturation 83 % (95-98); ABG PCO2 62 mmHg (35-45); ABG PH 7.22 pH Units (7.32-7.45); ABG PO2 59 mmHg (85-104); ABG TCO2 27 mEq/L (20-26); Blood Gas Modality BiLevel; Blood Gas PEEP 6 cm H2O
--- NOTE | 2018-10-25 21:49 | Event Note ---
<Alek Holley - Last Filed: 10/25/18 21:45> Date of Encounter: 10/25/18 Time of Encounter: 19:30 Notified by nurse of patient feeling more short of breath. Assessed patient at bedside and requested BiPAP be started. Vitals remain stable besides increased respiratory rate. Patient was restarted on Albumin and Bumex earlier this afternoon and has only had a total of 50 ML's out today. Nurse called on-call nephrology Dr. Cleveland who requested to give a second dose of Albumin with IV Bumex rather than PO tonight. Reassessed patient with Dr. Zamora and obtained chest x-ray and ABG, both of which have worsened. Dr. Zamora discussed with Dr. Cleveland and are planning to move patient to ICU, start on Lasix drip dosed with Albumin, increase BiPAP settings, monitor closely and intubate if necessary which patient verbalizes agreement to. Dr. Cleveland will follow-up on patient in the a.m. and likely start dialysis. <Hu Zamora - Last Filed: 10/25/18 22:09> Date of Encounter: 10/25/18 I assessed patient with Vasquez Holley CNP, reviewed xray and ABG, and then called and discussed with Dr. Cleveland. We will move patient to ICU, adjust BiPap settings, reassess, and, if necessary, intubate. Meanwhile, we'll try lasix drip and albumin infusion in hopes of diuresing. I discussed this with Dr. Cleveland, and she agrees. I called radiology and requested IR placement of temporary dialysis catheter tomorrow morning in preparation for CRRT.
[2018-10-25] MEDS ORDERED: Furosemide 240 MG in D5% in Water 96 ML IVC SCH (22:30)
[2018-10-26 00:01] LABS: ABG Base Excess -4 mEq/L (-2 to 3); ABG HCO3 25 mEq/L (21-27); ABG Oxygen Saturation 93 % (95-98); ABG PCO2 66 mmHg (35-45); ABG PH 7.19 pH Units (7.32-7.45); ABG PO2 85 mmHg (85-104); ABG TCO2 27 mEq/L (20-26); Blood Gas Modality avaps; Blood Gas VT 500 cc
[2018-10-26] MEDS: Albumin 25% 25gram/100mL 25 GM/100 ML IV.SOLN IVPB SCH ×5 (00:02→22:05)
[2018-10-26 01:06] LABS: ABG Base Excess -3 mEq/L (-2 to 3); ABG HCO3 25 mEq/L (21-27); ABG Oxygen Saturation 97 % (95-98); ABG PCO2 61 mmHg (35-45); ABG PH 7.22 pH Units (7.32-7.45); ABG PO2 105 mmHg (85-104); ABG TCO2 27 mEq/L (20-26); Blood Gas Modality avaps; Blood Gas VT 550 cc
[2018-10-26] MEDS: Ipratropium/Albuterol Neb 3 ML IH SCH ×6 (03:56→23:30)
[2018-10-26 05:16] LABS: INR 1.4; Prothrombin Time 15.6 Seconds (9.4-12.1)
[2018-10-26 05:19] LABS: Activated Partial Thrombo Time 38.8 Seconds (26.0-36.0)
--- NOTE | 2018-10-26 07:40 | Pulmonology Progress Note ---
<EvangelistChanelle M - Last Filed: 10/26/18 08:37> Date of Encounter: 10/26/18 Objective PUL Vital signs: Last Vital Signs Temp 97.3 F L 10/26/18 04:00 Pulse 67 10/26/18 07:30 Resp 24 10/26/18 07:53 BP 141/61 10/26/18 07:53 Pulse Ox 96 10/26/18 07:53 Results - Laboratory Findings CBC and BMP: 10/25/18 07:59 10/25/18 07:59 ABG ABG pH 7.22 pH Units (7.32-7.45) L 10/26/18 01:00 ABG pCO2 61 mmHg (35-45) H 10/26/18 01:00 ABG pO2 105 mmHg (85-104) H 10/26/18 01:00 ABG O2 Saturation 97 % (95-98) 10/26/18 01:00 PT/INR, D-dimer PT 15.6 Seconds (9.4-12.1) H 10/26/18 04:55 Abnormal lab findings: Abnormal lab results WBC 3.6 K/mcL (4.3-11.1) L 10/24/18 01:10 RBC 2.89 M/mcL (4.19-5.50) L 10/25/18 07:59 Hgb 8.3 g/dL (12.9-16.9) L 10/25/18 07:59 Hct 29.2 % (37.5-50.1) L 10/25/18 07:59 MCV 101.0 fL (83.0-100.0) H 10/25/18 07:59 MCHC 28.4 g/dL (31.6-35.5) L 10/25/18 07:59 RDW 17.8 % (11.5-14.5) H 10/25/18 07:59 Plt Count 78 K/mcL (140-400) L 10/25/18 07:59 Band Neutrophils % 70.0 % (0-4) H 10/09/18 22:18 Neutrophils # 9.6 K/mcL (1.6-8.9) H 10/10/18 04:00 Lymphocytes # 0.5 K/mcL (0.6-4.6) L 10/11/18 04:05 Nucleated RBCs/100 WBC 0.5 /100 WBC (0) H 10/18/18 04:00 Platelet Estimate Decreased (Normal) L 10/20/18 04:24 ESR 79 mm/hr (0-10) H 10/10/18 18:56 PT 15.6 Seconds (9.4-12.1) H 10/26/18 04:55 APTT 38.8 Seconds (26.0-36.0) H 10/26/18 04:55 Fibrinogen 465 mg/dL (169-393) H 10/10/18 17:15 Heparin Anti-Xa, Unfract 0.26 IU/mL (0.30-0.70) L 10/09/18 22:18 ABG pH 7.22 pH Units (7.32-7.45) L 10/26/18 01:00 ABG pCO2 61 mmHg (35-45) H 10/26/18 01:00 ABG pO2 105 mmHg (85-104) H 10/26/18 01:00 ABG Total CO2 27 mEq/L (20-26) H 10/26/18 01:00 ABG O2 Saturation 93 % (95-98) L 10/25/18 23:49 ABG Base Excess -3 mEq/L (-2 to 3) L 10/26/18 01:00 VBG pO2 69 mmHg (25-50) H 10/09/18 22:28 Sodium 135 mEq/L (136-145) L 10/17/18 03:33 Chloride 110 mEq/L (98-107) H 10/25/18 07:59 Carbon Dioxide 22 mEq/L (23-29) L 10/24/18 01:10 BUN 54 mg/dL (8-23) H 10/25/18 07:59 Creatinine 3.57 mg/dL (0.70-1.30) H 10/25/18 07:59 Est GFR ( Amer) 21 (> 60) L 10/25/18 07:59 Est GFR (Non-Af Amer) 17 (> 60) L 10/25/18 07:59 Glucose 131 mg/dL (70-105) H 10/25/18 07:59 POC Glucose 130 mg/dL (70-99) H 10/25/18 22:41 Calculated Osmolality 307 (280-300) H 10/25/18 07:59 Calcium 8.3 mg/dL (8.6-10.3) L 10/25/18 07:59 Venous Ioniz Calcium 1.13 mmol/L (1.15-1.35) L 10/19/18 05:26 Phosphorus 6.3 mg/dL (2.7-4.5) H 10/25/18 07:59 AST 66 Units/L (13-39) H 10/09/18 22:18 Lactate Dehydrogenase 286 Units/L (140-271) H 10/10/18 19:23 Troponin I 31.20 ng/mL (< 0.04) H* 10/10/18 12:00 C-Reactive Protein 209 mg/L (Less than 10) H 10/10/18 19:23 B-Natriuretic Peptide 868 pg/mL (Less than 100) H 10/09/18 22:18 Serum Total Protein 5.9 g/dL (6.4-8.9) L 10/13/18 03:40 Albumin 2.0 g/dL (3.5-5.7) L 10/14/18 03:56 Globulin 3.6 g/dL (2.4-3.5) H 10/13/18 03:40 Albumin/Globulin Ratio 0.6 (1.1-2.2) L 10/13/18 03:40 Procalcitonin 53.10 ng/mL (0.00-0.15) H 10/10/18 05:00 Urine Clarity Cloudy (Clear) A 10/10/18 00:42 Urine Protein >=300 mg/dL (Neg-Trace) H 10/10/18 00:42 Urine Ketones Trace mg/dL (Negative) H 10/10/18 00:42 Urine Blood Trace (Negative) H 10/10/18 00:42 Urine Bilirubin Moderate (Negative) H 10/10/18 00:42 Urine Microscopic RBC 3-5 per hpf (0-3) H 10/10/18 00:42 Urine Microscopic WBC 5-15 per hpf (0-3) H 10/10/18 00:42 Ur Squamous Epith Cells Many per lpf (None-Few) H 10/10/18 00:42 Hyaline Casts Many per lpf (None-Few) H 10/10/18 00:42 Protein/Creatinin Ratio 1.00 mg/mg (0.00-0.20) H 10/13/18 15:30 Urine Total Protein 103 mg/dL (1-14) H 10/13/18 15:30 Nasal Screen MRSA (PCR) Positive (Negative) A 10/09/18 22:59 Stl C.diff Tox A&B Gene DETECTED (Not detect) A 10/09/18 13:59 Vancomycin Trough 23 mcg/mL (5-10) H 10/12/18 03:55 Crossmatch See Detail 10/19/18 08:29 - Clinical Findings Intake & Output: Intake & Output 10/25/18 10/26/18 10/26/18 23:59 07:59 15:59 Intake Total 100 / 320 0 / 0 Output Total 50 / 50 Balance 99 / 274 -50 / -50 Weight 118.3 kg Consult Discharge Plan - Plan Additional Instructions: Follow up in wound care 1 week s/p discharge with Dr. Herrera Cleanse right foot with warm water and soap daily. Cover ulcer with calcium alginate, 4x4 dry gauze, and kerlix. Secure with medipore tape. Referrals: Antonio Savage, FARM LOAN INSPECTOR [Advanced Practice Nurse] - (office will call patient at home with follow up appointment) Davion Ruelas DO [Partnered Physician] - 10/29/18 1:00 pm - Attending Attestation I examined this patient and my medical decision-making was reviewed with the Resident Physician. I agree with the documented findings, disposition and treatment plan as described except to the extent set forth below. Patient seen and examined. Labs, radiology, chart personally reviewed. Agree with resident's history and physical, assessment, plan with following comments: INFORMATION SCIENTIST: Patient follows commands, Pulmonary: Acceptable oxygenation and ventilation. Patient is not in any acute distress on that noninvasive ventilation. Cardiovascular: Relatively stable, overall is poor with his systolic congestive heart failure. GI: Nutrition per dietary and GI prophylaxis per routine Heme: DVT prophylaxis per routine ID: Patient was seen by infectious disease when he was in ICU before coming back. Renal; urine out put and renal function reviewed. Stop Lasix drip since patient is not responding and nephrology assistance would be appreciated. Suspect patient will need dialysis for fluid management. Endorcine: blood glucose is monitored Lines: all lines checked and no evidence of infections Skin: skin care to prevent pressure ulcers per nursing routine care Dispo: ICU Code: Full. Prognosis. Overall poor <Fany Dominguez R - Last Filed: 10/26/18 10:34> Date of Encounter: 10/26/18 Time of Encounter: 07:40 Assessment and Plan (1) Acute respiratory failure Current Visit: Yes Status: Acute Pt transferred from [facility] due to respiratory failure, arrived on BiPAP Was initially tolerating BiPAP but was eventually intubated due to fatigure and the need for the patient to lie down for cardiac catheterization Pt intubated at 0030 on 10/10/18 Pt was extubated 10/15 at 0850 and has been tolerating extubation well He remains fluid overloaded and diuresis has slowed secondary to renal failure Pt is at moderate risk re-intubation during this stay On 10/25 the patient developed worsening shortness of breath and was placed on BiPAP again Stat ABG showed worsening acidosis and hypercapnia and chest x-ray shows worsening pulmonary edema Patient likely to start dialysis today and per nephro Qualifiers: Respiratory failure complication: hypoxia and hypercapnia Qualified Code(s): J96.01 - Acute respiratory failure with hypoxia; J96.02 - Acute respiratory failure with hypercapnia (2) Acute decompensated heart failure Current Visit: Yes Status: Acute Patient had acute decompensation of his heart failure likely secondary to subacute versus acute myocardial infarction EF on limited echo was 25%, of a significant decrease from May 2018 when it was 60-65% Will continue with diuresis as kidneys can tolerate On BiPAP CXR 10/14 shows slightly improving pulmonary edema Placed pt on nitro drip and start scheduled hydralazine for diuresis on 10/15 with improved uop Now switch to isosorbide dinitrite and hydralazine TID as pt is now taking oral meds Switch Lasix BID to 1mg Bumex BID with add metolazone Continue other treatment as above 10/26chest x-ray obtained last night shows worsening pulmonary edema We will likely start dialysis today per Nephro (3) Acute on chronic kidney failure Current Visit: Yes Status: Acute CKD stage 3 with baseline Cre appx 1.5 Kidney function continues to decline Cre today 2.66 Improved urinary output intially with lasix Lasix given again without significant effect Consultation to nephrology was placed - appreciate recommendations Continue to avoid nephrotoxic agents Pt now on Bumex 1mg BID with albumin Pt likely to start dialysis today Qualifiers: Acute renal failure type: unspecified Chronic kidney disease stage: stage 3 (moderate) Qualified Code(s): N17.9 - Acute kidney failure, unspecified; N18.3 - Chronic kidney disease, stage 3 (moderate) (4) C. difficile diarrhea Current Visit: Yes Status: Suspected Per family this started as an outpatient Will continue with IV Flagyl and vancomycin orally Rectal vanc DC'd per ID Patient is C. diff positive on lab draw but culture negative C. diff toxin negative CT abdomen/pelvis shows large bilateral effusions, cirrhotic morphology of the liver with mild splenomegaly along with ascites. There is no evidence of toxic megacolon, but there is wall thickening of the sigmoid colon Pt has not had diarrhea for since first night of visit ID following - appreciate recommendations 10/26 - completed Flagyl treatment and now on vancomycin taper, currently taking vancomycin orally twice a day (5) Pneumonia Current Visit: Yes Status: Resolved Sputum cultures with NGTD Procal significantly elevated at 53.1 Continue Cefepime and flagyl, IV Vancomycin stopped secondary to renal function ID following - appreciate recommendations Consolidation is likely pleural effusion but cannot rule out PNA at this time 10/26completed treatment for pneumonia, ID still following for C. difficile diarrhea Qualifiers: Pneumonia type: aspiration pneumonia Aspiration pneumonia type: unspecified Laterality: left Lung location: unspecified part of lung Qualified Code(s): J69.0 - Pneumonitis due to inhalation of food and vomit (6) Thrombocytopenia Current Visit: Yes Status: Acute Pt hs had slowly decreasing platelet levels Today plts 66 Continue to monitor (7) Chronic venous hypertension w/ulcer and inflammation involv both sides Current Visit: Yes Status: Chronic ID, podiatry and wound care following, appreciate recommendations RLE with dressing C/D/I Left BKA (8) COPD (chronic obstructive pulmonary disease) Current Visit: Yes Status: Acute Continue Duonebs q4H, Symbicort and Singulair Qualifiers: COPD type: unspecified COPD Qualified Code(s): J44.9 - Chronic obstructive pulmonary disease, unspecified (9) Right foot ulcer Current Visit: Yes Status: Chronic Podiatry and wound care following - appreciate recommendations Pt grew GNR from swab on 10/08/18 - Hx of Staph aureus and pseudomonas completed abx for pneumonia, ID still following for C. diff diarrhea Qualifiers: Non-pressure ulcer stage: limited to breakdown of skin Qualified Code(s): L97.511 - Non-pressure chronic ulcer of other part of right foot limited to breakdown of skin (10) Hypertension Current Visit: Yes Status: Chronic BP managed appropriately, pt has been normotensive since 10/24 Qualifiers: Hypertension type: essential hypertension Qualified Code(s): I10 - Essential (primary) hypertension (11) Diabetes Current Visit: Yes Status: Chronic Continue home meds Continue Accu-Cheks q6H Low dose SSI Qualifiers: Diabetes mellitus type: type 2 Diabetes mellitus mcc insulin use: with moth exterminator use Diabetes mellitus complication status: with skin complications Diabetes mellitus complication detail: with foot ulcer Qualified Code(s): E11.621 - Type 2 diabetes mellitus with foot ulcer; L97.509 - Non-pressure chronic ulcer of other part of unspecified foot with unspecified severity; Z79.4 - termination clerk (current) use of insulin (12) DVT prophylaxis Current Visit: Yes Status: Acute Will start SQ Heparin and continue to monitor Hgb and platelets Subjective Principal diagnosis: CHF, AMI, C-Diff, GILES Interval history: Pt had been doing better while on the floor but last night began feeling more short of breath. He had been switched to albumin prior to Bumex treatments but has had decreased urinary output and only had 50 mL out over the course of yesterday. Patient was placed on BiPAP and stat ABG showed worsening acidosis with hypercapnia. Stat chest x-ray showed worsening pulmonary edema. Dr. Anders was made aware of the patient's condition and will likely start the patient on dialysis today as his oliguria is worsening. Patient is agreeable with intubation at this time and remains on BiPAP. This morning he is feeling less short of breath and has been improving on the BiPAP. Objective PUL Vital signs: Last Vital Signs Temp 97.3 F L 10/26/18 04:00 Pulse 70 10/26/18 06:00 Resp 11 10/26/18 06:00 BP 154/66 10/26/18 06:00 Pulse Ox 96 10/26/18 06:00 General appearance: no acute distress, alert Eyes: nonicteric Effort: normal Auscultation: bilateral: rales Cardiovascular: regular rate and rhythm Gastrointestinal: soft, non-tender Integumentary: normal Extremities: edema normal mental status, non-focal exam, pupils equal and round mood appropriate, affect normal Results - Laboratory Findings CBC and BMP: 10/26/18 09:56 10/25/18 07:59 ABG ABG pH 7.22 pH Units (7.32-7.45) L 10/26/18 01:00 ABG pCO2 61 mmHg (35-45) H 10/26/18 01:00 ABG pO2 105 mmHg (85-104) H 10/26/18 01:00 ABG O2 Saturation 97 % (95-98) 10/26/18 01:00 PT/INR, D-dimer PT 15.6 Seconds (9.4-12.1) H 10/26/18 04:55 Abnormal lab findings: Abnormal lab results WBC 3.6 K/mcL (4.3-11.1) L 10/24/18 01:10 RBC 2.89 M/mcL (4.19-5.50) L 10/25/18 07:59 Hgb 8.3 g/dL (12.9-16.9) L 10/25/18 07:59 Hct 29.2 % (37.5-50.1) L 10/25/18 07:59 MCV 101.0 fL (83.0-100.0) H 10/25/18 07:59 MCHC 28.4 g/dL (31.6-35.5) L 10/25/18 07:59 RDW 17.8 % (11.5-14.5) H 10/25/18 07:59 Plt Count 78 K/mcL (140-400) L 10/25/18 07:59 Band Neutrophils % 70.0 % (0-4) H 10/09/18 22:18 Neutrophils # 9.6 K/mcL (1.6-8.9) H 10/10/18 04:00 Lymphocytes # 0.5 K/mcL (0.6-4.6) L 10/11/18 04:05 Nucleated RBCs/100 WBC 0.5 /100 WBC (0) H 10/18/18 04:00 Platelet Estimate Decreased (Normal) L 10/20/18 04:24 ESR 79 mm/hr (0-10) H 10/10/18 18:56 PT 15.6 Seconds (9.4-12.1) H 10/26/18 04:55 APTT 38.8 Seconds (26.0-36.0) H 10/26/18 04:55 Fibrinogen 465 mg/dL (169-393) H 10/10/18 17:15 Heparin Anti-Xa, Unfract 0.26 IU/mL (0.30-0.70) L 10/09/18 22:18 ABG pH 7.22 pH Units (7.32-7.45) L 10/26/18 01:00 ABG pCO2 61 mmHg (35-45) H 10/26/18 01:00 ABG pO2 105 mmHg (85-104) H 10/26/18 01:00 ABG Total CO2 27 mEq/L (20-26) H 10/26/18 01:00 ABG O2 Saturation 93 % (95-98) L 10/25/18 23:49 ABG Base Excess -3 mEq/L (-2 to 3) L 10/26/18 01:00 VBG pO2 69 mmHg (25-50) H 10/09/18 22:28 Sodium 135 mEq/L (136-145) L 10/17/18 03:33 Chloride 110 mEq/L (98-107) H 10/25/18 07:59 Carbon Dioxide 22 mEq/L (23-29) L 10/24/18 01:10 BUN 54 mg/dL (8-23) H 10/25/18 07:59 Creatinine 3.57 mg/dL (0.70-1.30) H 10/25/18 07:59 Est GFR ( Amer) 21 (> 60) L 10/25/18 07:59 Est GFR (Non-Af Amer) 17 (> 60) L 10/25/18 07:59 Glucose 131 mg/dL (70-105) H 10/25/18 07:59 POC Glucose 130 mg/dL (70-99) H 10/25/18 22:41 Calculated Osmolality 307 (280-300) H 10/25/18 07:59 Calcium 8.3 mg/dL (8.6-10.3) L 10/25/18 07:59 Venous Ioniz Calcium 1.13 mmol/L (1.15-1.35) L 10/19/18 05:26 Phosphorus 6.3 mg/dL (2.7-4.5) H 10/25/18 07:59 AST 66 Units/L (13-39) H 10/09/18 22:18 Lactate Dehydrogenase 286 Units/L (140-271) H 10/10/18 19:23 Troponin I 31.20 ng/mL (< 0.04) H* 10/10/18 12:00 C-Reactive Protein 209 mg/L (Less than 10) H 10/10/18 19:23 B-Natriuretic Peptide 868 pg/mL (Less than 100) H 10/09/18 22:18 Serum Total Protein 5.9 g/dL (6.4-8.9) L 10/13/18 03:40 Albumin 2.0 g/dL (3.5-5.7) L 10/14/18 03:56 Globulin 3.6 g/dL (2.4-3.5) H 10/13/18 03:40 Albumin/Globulin Ratio 0.6 (1.1-2.2) L 10/13/18 03:40 Procalcitonin 53.10 ng/mL (0.00-0.15) H 10/10/18 05:00 Urine Clarity Cloudy (Clear) A 10/10/18 00:42 Urine Protein >=300 mg/dL (Neg-Trace) H 10/10/18 00:42 Urine Ketones Trace mg/dL (Negative) H 10/10/18 00:42 Urine Blood Trace (Negative) H 10/10/18 00:42 Urine Bilirubin Moderate (Negative) H 10/10/18 00:42 Urine Microscopic RBC 3-5 per hpf (0-3) H 10/10/18 00:42 Urine Microscopic WBC 5-15 per hpf (0-3) H 10/10/18 00:42 Ur Squamous Epith Cells Many per lpf (None-Few) H 10/10/18 00:42 Hyaline Casts Many per lpf (None-Few) H 10/10/18 00:42 Protein/Creatinin Ratio 1.00 mg/mg (0.00-0.20) H 10/13/18 15:30 Urine Total Protein 103 mg/dL (1-14) H 10/13/18 15:30 Nasal Screen MRSA (PCR) Positive (Negative) A 10/09/18 22:59 Stl C.diff Tox A&B Gene DETECTED (Not detect) A 10/09/18 13:59 Vancomycin Trough 23 mcg/mL (5-10) H 10/12/18 03:55 Crossmatch See Detail 10/19/18 08:29 - Clinical Findings Intake & Output: Intake & Output 10/25/18 10/25/18 10/26/18 15:59 23:59 07:59 Intake Total 220 / 320 100 / 320 0 / 0 Output Total 45 / 46 46 50 / 50 Balance 175 / 274 99 / 274 -50 / -50 Weight 118.3 kg
[2018-10-26] MEDS: Vancomycin Oral Soln 125 MG/2.5 ML UDC PO SCH ×2 (09:55→19:34)
[2018-10-26] MEDS: Insulin LISPRO 300 UNITS/3 ML VIAL SQ SCH ×4 (09:56→19:34)
[2018-10-26] MEDS: Famotidine 20 MG/2 ML VIAL IVP SCH (09:56)
[2018-10-26] MEDS: hydrALAZINE 25 MG TABLET PO SCH ×3 (09:56→19:35)
[2018-10-26 10:14] LABS: Mean Corpuscular Volume 101.1 fL (83.0-100.0)
[2018-10-26 10:16] LABS: Basophils % 1.1 %; Eosinophils # 0.2 K/mcL (0.0-0.6); Eosinophils % 5.1 %; Hematocrit 27.4 % (37.5-50.1); Hemoglobin 7.9 g/dL (12.9-16.9); Immature Granulocytes % 1.4 % (0-4); Immature Platelets 4.6 % (1.1-6.1); Mean Corpuscular HGB Conc 28.8 g/dL (31.6-35.5); Mean Corpuscular Hemoglobin 29.2 pg (28.0-33.3); Mean Platelet Volume 11.4 fL (9.4-12.4); Monocytes # 0.6 K/mcL (0.0-1.3); Monocytes % 16.3 %; Neutrophils # 1.9 K/mcL (1.6-8.9); Red Blood Count 2.71 M/mcL (4.19-5.50); Red Cell Distribution Width 18.2 % (11.5-14.5); Segmented Neutrophils % 50.1 %; White Blood Count 3.7 K/mcL (4.3-11.1)
[2018-10-26 10:19] LABS: Platelet Count 66 K/mcL (140-400)
[2018-10-26 10:24] LABS: Calcium 7.9 mg/dL (8.6-10.3); Potassium 4.6 mEq/L (3.5-5.1)
[2018-10-26 10:28] LABS: Alanine Aminotransferase < 3 Units/L (7-52); Albumin 2.7 g/dL (3.5-5.7); Albumin/Globulin Ratio 0.7 (1.1-2.2); Alkaline Phosphatase 56 Units/L (34-104); Aspartate Amino Transferase 9 Units/L (13-39); BUN/Creatinine Ratio 14 (6-26); Bilirubin,Total 0.4 mg/dL (0.3-1.0); Blood Urea Nitrogen 56 mg/dL (8-23); Carbon Dioxide 21 mEq/L (23-29); Chloride 110 mEq/L (98-107); Globulin 4.1 g/dL (2.4-3.5); Glucose 103 mg/dL (70-105); Magnesium 2.2 mg/dL (1.6-2.6); Osmolality,Calculated 312 (280-300); Potassium 4.7 mEq/L (3.5-5.1); Sodium 143 mEq/L (136-145); Total Protein 6.8 g/dL (6.4-8.9); eGFR For African Americans 18 (> 60); eGFR For Non-African Americans 15 (> 60)
[2018-10-26] MEDS: Budesonide/Formoterol 160/4.5 1 PUFF INH IH SCH ×2 (11:13→20:06)
--- NOTE | 2018-10-26 11:59 | Nephrology Progress Note ---
Date of Encounter: 10/26/18 Time of Encounter: 12:00 - Assessment and Plan (1) Acute on chronic kidney failure Current Visit: Yes Status: Acute Qualifiers: Acute renal failure type: unspecified Chronic kidney disease stage: stage 3 (moderate) Qualified Code(s): N17.9 - Acute kidney failure, unspecified; N18.3 - Chronic kidney disease, stage 3 (moderate) (2) Anemia Current Visit: Yes Status: Chronic Qualifiers: Anemia type: due to chronic kidney disease Chronic kidney disease stage: stage 3 (moderate) Qualified Code(s): N18.3 - Chronic kidney disease, stage 3 (moderate); D63.1 - Anemia in chronic kidney disease (3) Hypertension Current Visit: Yes Status: Chronic Qualifiers: Hypertension type: essential hypertension Qualified Code(s): I10 - Essential (primary) hypertension (4) Acute exacerbation of CHF (congestive heart failure) Current Visit: Yes Status: Acute Qualifiers: Heart failure type: systolic Qualified Code(s): I50.23 - Acute on chronic systolic (congestive) heart failure Subjective Principal diagnosis: CHF, AMI, C-Diff, GILES Interval history: Interim noted, pt seen and examined well known to me from CKD management over the years. Transferred from to this evening, appears visibly dyspneic but still able to speak. Nurse at bedside Objective - Vital Signs Vital signs: Vital Signs Temp Pulse Resp BP Pulse Ox 10/26/18 11:17 67 23 150/67 97 10/26/18 11:13 20 95 10/26/18 10:30 66 24 142/62 95 10/26/18 09:30 66 21 149/65 96 10/26/18 08:44 97.2 F L 10/26/18 08:30 65 23 138/64 96 10/26/18 07:53 24 141/61 96 10/26/18 07:30 67 21 141/61 97 10/26/18 06:00 70 11 154/66 96 10/26/18 05:00 67 30 134/62 96 10/26/18 04:00 97.3 F L 65 16 128/61 96 10/26/18 03:57 26 98 10/26/18 03:00 68 12 130/62 98 10/26/18 02:00 64 15 124/54 98 10/26/18 01:00 68 21 128/90 98 10/26/18 00:00 73 25 122/49 100 10/25/18 23:22 20 97 10/25/18 23:00 97.7 F 80 17 124/59 97 10/25/18 22:03 30 94 10/25/18 19:49 23 149/66 94 10/25/18 18:52 97.5 F L 73 20 154/81 90 10/25/18 16:24 97.3 F L 67 16 122/71 93 10/25/18 16:01 17 92 Intake and Output 10/25/18 10/26/18 10/26/18 23:59 07:59 15:59 Intake Total 100 / 320 0 / 0 Output Total Balance 99 / 274 - - - Intake: IV Fluids 100 / 100 Flexbumin 25 gm In 100 ml @ 60 100 / 100 mls/hr IVPB BID SHERIDAN Rx#: [id number] Oral 0 / 220 0 / 0 Output: Catheter Urethral (Vázquez) Other: Weight 118.3 kg Blood Glucose* 130 117 - Lab 10/26/18 09:56 10/26/18 09:56 Most recent lab results 10/25/18 10/26/18 10/26/18 23:49 01:00 09:56 ABG pH 7.19 L* 7.22 L ABG pCO2 66 H 61 H ABG pO2 85 105 H ABG HCO3 25 25 ABG O2 Saturation 93 L 97 Calcium 7.9 L Magnesium 10/26/18 09:56 ABG pH ABG pCO2 ABG pO2 ABG HCO3 ABG O2 Saturation Calcium 8.0 L Magnesium 2.2 Consult Discharge Plan - Plan Additional Instructions: Follow up in wound care 1 week s/p discharge with Dr. Herrera Cleanse right foot with warm water and soap daily. Cover ulcer with calcium alginate, 4x4 dry gauze, and kerlix. Secure with medipore tape. Referrals: Antonio Savage, PATIENT TRANSPORTER [Advanced Practice Nurse] - (office will call patient at home with follow up appointment) Davion Ruelas DO [Partnered Physician] - 10/29/18 1:00 pm
[2018-10-26] MEDS: *HR* LORazepam 2 MG/ML VIAL IVP PRN ×3 (15:51→22:08)
[2018-10-26] MEDS: Melatonin 3 MG TABLET PO PRN (19:35)
[2018-10-27] MEDS: Dexmedetomidine HCl 400 MCG/100 ML MLS IVC SCH ×2 (01:40→20:24)
[2018-10-27] MEDS: Ipratropium/Albuterol Neb 3 ML IH SCH ×5 (03:27→20:32)
[2018-10-27] MEDS: Albumin 25% 25gram/100mL 25 GM/100 ML IV.SOLN IVPB SCH (04:02)
[2018-10-27] MEDS: *HR* LORazepam 2 MG/ML VIAL IVP PRN ×2 (04:35→06:37)
[2018-10-27 05:35] LABS: ABG Base Excess -4 mEq/L (-2 to 3); ABG HCO3 22 mEq/L (21-27); ABG Oxygen Saturation 88 % (95-98); ABG PCO2 45 mmHg (35-45); ABG PO2 61 mmHg (85-104); ABG TCO2 23 mEq/L (20-26); Blood Gas Modality AVAPS; Blood Gas PEEP 6 cm H2O; Blood Gas VT 550 cc
[2018-10-27 06:11] LABS: Basophils % 0.9 %; Eosinophils % 3.5 %; Hemoglobin 7.2 g/dL (12.9-16.9); Immature Granulocytes % 0.9 % (0-4); Monocytes % 15.9 %; Red Cell Distribution Width 18.1 % (11.5-14.5)
[2018-10-27 06:13] LABS: Eosinophils # 0.1 K/mcL (0.0-0.6); Hematocrit 23.8 % (37.5-50.1); Immature Platelets 5.8 % (1.1-6.1); Lymphocytes % 30.1 %; Mean Corpuscular HGB Conc 30.3 g/dL (31.6-35.5); Mean Corpuscular Hemoglobin 29.8 pg (28.0-33.3); Mean Corpuscular Volume 98.3 fL (83.0-100.0); Mean Platelet Volume 11.5 fL (9.4-12.4); Monocytes # 0.6 K/mcL (0.0-1.3); Neutrophils # 1.7 K/mcL (1.6-8.9); Red Blood Count 2.42 M/mcL (4.19-5.50); Segmented Neutrophils % 48.7 %; White Blood Count 3.5 K/mcL (4.3-11.1)
[2018-10-27 06:15] LABS: Lymphocytes # 1.1 K/mcL (0.6-4.6); Platelet Count 57 K/mcL (140-400)
[2018-10-27 06:24] LABS: Calcium 8.3 mg/dL (8.6-10.3); Potassium 4.7 mEq/L (3.5-5.1)
[2018-10-27] MEDS: hydrALAZINE 25 MG TABLET PO SCH ×3 (07:14→20:24)
[2018-10-27] MEDS: Vancomycin Oral Soln 125 MG/2.5 ML UDC PO SCH ×2 (07:16→20:24)
[2018-10-27] MEDS: Famotidine 20 MG/2 ML VIAL IVP SCH (07:25)
[2018-10-27] MEDS: Insulin LISPRO 300 UNITS/3 ML VIAL SQ SCH ×4 (07:25→20:24)
[2018-10-27] MEDS: Budesonide/Formoterol 160/4.5 1 PUFF INH IH SCH ×2 (07:41→20:35)
--- NOTE | 2018-10-27 08:22 | Infectious Disease Progress No ---
ID Progress Note Date of Encounter: 10/27/18 Time of Encounter: 09:45 - Subjective Subjective: Pt seen and examined at bedside. No acute events overnight. Continues to wear the BiPAP. Nurse reports pt had 1 bowel movement overnight which was formed. Pt has no new or acute complaints. Over the weekend the patient was transferred back to the ICU for respiratory failure. Per reports the patient became short of breath overnight on 10/25. At that time he was placed on BiPAP. Stat CXR showed volume overload with bilateral effusions and airspace disease. A dialysis catheter was placed by IR on 10/27 per management by nephrology. - Objective CBC & Chem 7: 10/28/18 04:23 10/28/18 04:23 - Line Documentation Line Documentation: Dialysis Catheter - Exam Vitals: Temp Pulse Resp BP Pulse Ox 96.3 F L 61 22 131/59 95 10/27/18 08:10 10/27/18 08:00 10/27/18 08:00 10/27/18 08:00 10/27/18 08:00 Exam: Constitutional: Well-developed male in mild respiratory distress with BiPAP in place Head: Normocephalic, atraumatic Eyes: PERRL, EOMI, conjunctiva pink, sclera anicteric Neck: Trachea midline, no lymphadenopathy Lungs: Mildly labored breathing. BiPAP. Rales appreciated in lower lobes bilaterally, with coarse breath sounds in the right upper lobe. No wheezes or rhonchi noted. Cardiac: RRR. +s1 +s2 No murmurs, clicks, or rubs noted. GI: Abdomen soft, nontender, obese. Normoactive bowel sounds Extremities: Warm, radial pulses palpable and symmetrical. No cyanosis, or calf tenderness. Left BKA. Right lower extremity with clean dressing in place over erythematous wound without purulent drainage. Neuro: Alert and oriented 2. Difficult to assess with BiPAP in place. No focal deficits. Normal speech. Skin: Warm, dry, and intact. Erythema of right lower extremity as above. Multiple contusions noted on the abdomen, can be correlated to subcutaneous heparin and insulin injections. - Assessment and Plan (1) Acute respiratory failure Current Visit: Yes Status: Acute Pt developed worsenng sortness of breath and was placed on BiPAP overnight on 10/25/18 - transferred back to ICU Stat ABG showed worsening acidosis and hypercapnia Stat CXR showed worsening pulmonary edema Afebrile during this time No tachycardia during this time There was associated tachypnea No associated leukocytosis - WBC on 10/25 was 4.7 No complaints of increase sputum production or increased cough Likely related to fluid overload with CHF and Acute on chronic kidney failure - pulmonology and nephrology following Qualifiers: Respiratory failure complication: hypoxia and hypercapnia Qualified Code(s): J96.01 - Acute respiratory failure with hypoxia; J96.02 - Acute respiratory failure with hypercapnia SNOMED Code(s): 11547409 (2) Shock Current Visit: Yes Status: Resolved Resolved at this time, patient currently extubated and off pressors Was likely cardiogenic in nature Patient was initially transferred from [facility] to ICU because of diarrheal episodes for the past 2 weeks accompanied by abdominal pain Pertinent Vitals/Labs on admission: Temp: 99.9, Pulse: 97, RR: 27, WBC: 15.7, Band neutrophils 70%, Lactate : 2.1, BNP: 2898. Pertinent Vitals/Labs now: Temp: 97.7, Pulse: 55, RR: 18, WBC: 3.5 Known right leg cellulitis vascular stasis dermatitis - no evidence of any bleeding or serosanguineous discharge 10/09/18 CXR showed bilateral mild and lower lung airspace disease and bilateral pleural effusion with concerns for pulmonary edema 10/10/18 Abdomen /Pelvic CT demonstrated wall thickening of the sigmoid colon likely related to lack of distention. Correlation for colitis is recommended Completed 15 days of Cefepime 2g IV q12h and 17 days of Flagyl IV 500mg q8h and po Flagyl PLAN Continue PO Vancomycin tapering dose through November 20 as outlined under C difficile diarrhea SNOMED Code(s): 38493810 (3) C. difficile diarrhea Current Visit: Yes Status: Acute Patient has a history of associated diarrhea . Was treated in the hospital in June for C. difficile and was on discharged vancomycin taper Has been afebrile since admission, with current white blood count of 3.5 Stool C. difficile toxin A&B was negative CT abdominal/pelvis did not show any evidence for toxic megacolon but there was wall thickening of the sigmoid colon Patient has been having formed bowel movements PLAN: Continue PO vancomycin taper for 6 weeks through November 20 as outlined below 125 mg orally twice daily for 7 days (through 10/30), then 125 mg orally once daily for 7 days (through 11/06), then 125 mg orally every 2 days for 2 weeks (through 11/20). Contact precautions per hospital policy. Infectious disease will sign off at this time. Thank you for the consultation. Please call with any questions. SNOMED Code(s): 9806512597603 (4) Pneumonia Current Visit: Yes Status: Resolved Etiology unknown Procalcitonin significantly elevated at 53.1 on admission Remains on BiPAP with FiO2 60% and SpO2 95% Rales noted in bilateral bases on physical exam 10/11/18: CXR Consolidation is likely pleural efusion but cannot rule out pne umonia at this time 10/14/18: CXR Improving bibasilar atelectesis or PNA Patient completed 15 days of cefepime and 17 days of Flagyl Qualifiers: Pneumonia type: aspiration pneumonia Aspiration pneumonia type: unspecified Laterality: left Lung location: unspecified part of lung Qualified Code(s): J69.0 - Pneumonitis due to inhalation of food and vomit SNOMED Code(s): 464436266 (5) DM type 2 (diabetes mellitus, type 2) Current Visit: Yes Status: Chronic Hx of DM2 Currently on low-dose sliding scale insulin Qualifiers: 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: without longterm use Diabetes mellitus complication status: with skin complications Diabetes mellitus complication detail: with foot ulcer Qualified Code(s): E11.621 - Type 2 diabetes mellitus with foot ulcer; L97.509 - Non-pressure chronic ulcer of other part of unspecified foot with unspecified severity SNOMED Code(s): 61774267 (6) Venous stasis dermatitis of right lower extremity Current Visit: Yes Status: Chronic Venous stasis of the right lower extremity with no evidence of any bleeding or serosangunous discharge Appearss stable at this time Continue daily dressing changes SNOMED Code(s): 90762023 (7) NSTEMI (non-ST elevated myocardial infarction) Current Visit: Yes Status: Acute Patient found to have significant elevation in his troponin with troponin less than upper limit of normal at [facility] and upon arrival to [place] was found to have troponin of 30.22 and repeat 30.47 Echocardiogram limited was obtained which shows EF of 25% which is a significant drop from previous on 05/30/18 which had a EF of 60-65% The patient does have a long history of cardiac disease and has undergone CABG previously Patient underwent LHC with Dr. Velasquez on 10/10/18 and a bare metal stent was placed in the saphenous venous graft OM1 SNOMED Code(s): 44384276 Consult Discharge Plan - Plan Additional Instructions: Follow up in wound care 1 week s/p discharge with Dr. Herrera Cleanse right foot with warm water and soap daily. Cover ulcer with calcium alginate, 4x4 dry gauze, and kerlix. Secure with medipore tape. Referrals: Antonio Savage, [facility] [Advanced Practice Nurse] - (office will call patient at home with follow up appointment) Davion Ruelas DO [Partnered Physician] - 10/29/18 1:00 pm - Attending Attestation I examined this patient and my medical decision-making was reviewed with the Resident Physician. I agree with the documented findings, disposition and treatment plan as described except to the extent set forth below. Patient is a 63-year-old gentleman with following for aspiration pneumonia and recurrent C. difficile. Patient returns the worse and went into acute respiratory failure likely secondary to fluid overload. Obvious pneumonia. Pulmonary and ICU team following. No further recommendations from our part. We will sign off.
--- NOTE | 2018-10-27 09:46 | Pulmonology Progress Note ---
Date of Encounter: 10/27/18 Time of Encounter: 07:30 Assessment and Plan (1) Acute respiratory failure Current Visit: Yes Status: Acute I spent 33 min of Critical Care time with this patient. It involved decision making of high complexity to assess, manipulate, and support vital organ system failure and/or to prevent further life threatening deterioration of the patient's condition. The time involved in the performance of separately reportable procedures was not counted toward critical care time. Patient remains dependent on positive airway pressure for support Oxygen saturation currently acceptable but he is at very high risk for the need for reintubation given encephalopathy and I suspect if that worsens that he will likely need to be reintubated later today Qualifiers: Respiratory failure complication: hypoxia and hypercapnia Qualified Code(s): J96.01 - Acute respiratory failure with hypoxia; J96.02 - Acute respiratory failure with hypercapnia (2) NSTEMI (non-ST elevated myocardial infarction) Current Visit: Yes Status: Acute Status post recent PCI and will need antiplatelet therapy per cardiology recommendations He has an allergy to statin and so this is on hold Acute kidney injury precludes use of the JESSY inhibitor Beta chilango contraindicated because of periodic bradycardia (3) Acute on chronic kidney failure Current Visit: Yes Status: Acute Nephrology following plan for dialysis today we will we will consult IR for temporary HD catheter placement continue nephro protective strategy hold albumin is I do not feel that this is going to be helpful with regards to volume expansion/diuretic approach Qualifiers: Acute renal failure type: unspecified Chronic kidney disease stage: stage 3 (moderate) Qualified Code(s): N17.9 - Acute kidney failure, unspecified; N18.3 - Chronic kidney disease, stage 3 (moderate) (4) Acute decompensated heart failure Current Visit: Yes Status: Acute He has not responded to diuresis => likely will need dialysis with fluid removal we will continue his hydralazine and isordil for preload afterload reduction (5) Metabolic acidosis Current Visit: Yes Status: Resolved Stable acidosis should improve with dialysis as it is secondary to acute on chronic kidney injury (6) Metabolic encephalopathy Current Visit: Yes Status: Acute Dialysis likely to improve metabolic derangements and hopefully he is sent mental status will improve he also has some delirium likely secondary to prolonged hospitalization/ICU stay. We will focus on oriental orthodox of sleep-wake cycle. avoid sensory deprivation, and avoid NEON MOLDER depressant medications as able. (7) C. difficile diarrhea Current Visit: Yes Status: Suspected He is on chronic treatment with vancomycin per infectious disease recommendations (8) Goals of care, counseling/discussion Current Visit: Yes Status: Acute Patient currently full code overall prognosis is guarded to poor Subjective Principal diagnosis: CHF, AMI, C-Diff, GILES Interval history: More agitated/encephalopathic over the evening remains BiPAP dependent with quick desaturation. He is able to follow simple commands and make eye contact is not able to follow, questions or line of questioning because of sleepiness Objective PUL Vital signs: Last Vital Signs Temp 97.3 F L 10/27/18 09:24 Pulse 60 10/27/18 09:24 Resp 21 10/27/18 09:24 BP 131/77 10/27/18 09:24 Pulse Ox 95 10/27/18 09:24 General appearance: lethargic (Easily arousable) Eyes: nonicteric Neck: JVD Effort: mildly labored Auscultation: bilateral: rales Cardiovascular: regular rate and rhythm Gastrointestinal: normoactive bowel sounds, soft, non-tender Integumentary: other (No new or evolving rash) Extremities: anasarca Musculoskeletal: other (Left BKA) pupils equal and round other (Calm during my examination) Results - Laboratory Findings CBC and BMP: 10/27/18 05:28 10/27/18 05:28 ABG ABG pH 7.30 pH Units (7.32-7.45) L 10/27/18 04:52 ABG pCO2 45 mmHg (35-45) 10/27/18 04:52 ABG pO2 61 mmHg (85-104) L 10/27/18 04:52 ABG O2 Saturation 88 % (95-98) L 10/27/18 04:52 PT/INR, D-dimer PT 15.6 Seconds (9.4-12.1) H 10/26/18 04:55 Abnormal lab findings: Abnormal lab results WBC 3.5 K/mcL (4.3-11.1) L 10/27/18 05:28 RBC 2.42 M/mcL (4.19-5.50) L 10/27/18 05:28 Hgb 7.2 g/dL (12.9-16.9) L 10/27/18 05:28 Hct 23.8 % (37.5-50.1) L 10/27/18 05:28 MCV 101.1 fL (83.0-100.0) H 10/26/18 09:56 MCHC 30.3 g/dL (31.6-35.5) L 10/27/18 05:28 RDW 18.1 % (11.5-14.5) H 10/27/18 05:28 Plt Count 57 K/mcL (140-400) L 10/27/18 05:28 Band Neutrophils % 70.0 % (0-4) H 10/09/18 22:18 Neutrophils # 9.6 K/mcL (1.6-8.9) H 10/10/18 04:00 Lymphocytes # 0.5 K/mcL (0.6-4.6) L 10/11/18 04:05 Nucleated RBCs/100 WBC 0.5 /100 WBC (0) H 10/18/18 04:00 Platelet Estimate Decreased (Normal) L 10/20/18 04:24 ESR 79 mm/hr (0-10) H 10/10/18 18:56 PT 15.6 Seconds (9.4-12.1) H 10/26/18 04:55 APTT 38.8 Seconds (26.0-36.0) H 10/26/18 04:55 Fibrinogen 465 mg/dL (169-393) H 10/10/18 17:15 Heparin Anti-Xa, Unfract 0.26 IU/mL (0.30-0.70) L 10/09/18 22:18 ABG pH 7.30 pH Units (7.32-7.45) L 10/27/18 04:52 ABG pCO2 61 mmHg (35-45) H 10/26/18 01:00 ABG pO2 61 mmHg (85-104) L 10/27/18 04:52 ABG Total CO2 27 mEq/L (20-26) H 10/26/18 01:00 ABG O2 Saturation 88 % (95-98) L 10/27/18 04:52 ABG Base Excess -4 mEq/L (-2 to 3) L 10/27/18 04:52 VBG pO2 69 mmHg (25-50) H 10/09/18 22:28 Sodium 135 mEq/L (136-145) L 10/17/18 03:33 Chloride 110 mEq/L (98-107) H 10/27/18 05:28 Carbon Dioxide 21 mEq/L (23-29) L 10/27/18 05:28 BUN 60 mg/dL (8-23) H 10/27/18 05:28 Creatinine 4.48 mg/dL (0.70-1.30) H 10/27/18 05:28 Est GFR ( Amer) 16 (> 60) L 10/27/18 05:28 Est GFR (Non-Af Amer) 13 (> 60) L 10/27/18 05:28 Glucose 131 mg/dL (70-105) H 10/25/18 07:59 POC Glucose 108 mg/dL (70-99) H 10/26/18 19:34 Calculated Osmolality 312 (280-300) H 10/27/18 05:28 Calcium 8.3 mg/dL (8.6-10.3) L 10/27/18 05:28 Venous Ioniz Calcium 1.13 mmol/L (1.15-1.35) L 10/19/18 05:26 Phosphorus 6.3 mg/dL (2.7-4.5) H 10/25/18 07:59 AST 9 Units/L (13-39) L 10/26/18 09:56 ALT < 3 Units/L (7-52) L 10/26/18 09:56 Lactate Dehydrogenase 286 Units/L (140-271) H 10/10/18 19:23 Troponin I 31.20 ng/mL (< 0.04) H* 10/10/18 12:00 C-Reactive Protein 209 mg/L (Less than 10) H 10/10/18 19:23 B-Natriuretic Peptide 868 pg/mL (Less than 100) H 10/09/18 22:18 Serum Total Protein 5.9 g/dL (6.4-8.9) L 10/13/18 03:40 Albumin 2.7 g/dL (3.5-5.7) L 10/26/18 09:56 Globulin 4.1 g/dL (2.4-3.5) H 10/26/18 09:56 Albumin/Globulin Ratio 0.7 (1.1-2.2) L 10/26/18 09:56 Procalcitonin 53.10 ng/mL (0.00-0.15) H 10/10/18 05:00 Urine Clarity Cloudy (Clear) A 10/10/18 00:42 Urine Protein >=300 mg/dL (Neg-Trace) H 10/10/18 00:42 Urine Ketones Trace mg/dL (Negative) H 10/10/18 00:42 Urine Blood Trace (Negative) H 10/10/18 00:42 Urine Bilirubin Moderate (Negative) H 10/10/18 00:42 Urine Microscopic RBC 3-5 per hpf (0-3) H 10/10/18 00:42 Urine Microscopic WBC 5-15 per hpf (0-3) H 10/10/18 00:42 Ur Squamous Epith Cells Many per lpf (None-Few) H 10/10/18 00:42 Hyaline Casts Many per lpf (None-Few) H 10/10/18 00:42 Protein/Creatinin Ratio 1.00 mg/mg (0.00-0.20) H 10/13/18 15:30 Urine Total Protein 103 mg/dL (1-14) H 10/13/18 15:30 Nasal Screen MRSA (PCR) Positive (Negative) A 10/09/18 22:59 Stl C.diff Tox A&B Gene DETECTED (Not detect) A 10/09/18 13:59 Vancomycin Trough 23 mcg/mL (5-10) H 10/12/18 03:55 Crossmatch See Detail 10/19/18 08:29 - Diagnostic Findings Chest x-ray: report reviewed, image reviewed - Clinical Findings Intake & Output: Intake & Output 10/26/18 10/27/18 10/27/18 23:59 07:59 15:59 Intake Total 200 / 350 107.3 / 107.3 Output Total 58 / 148 / 66 33 / 66 Balance 142 / 202 74.3 / 41.3 -33 / 41.3 Weight 119.2 kg Consult Discharge Plan - Plan Additional Instructions: Follow up in wound care 1 week s/p discharge with Dr. Herrera Cleanse right foot with warm water and soap daily. Cover ulcer with calcium alginate, 4x4 dry gauze, and kerlix. Secure with medipore tape. Referrals: Antonio Savage, [employer] [Advanced Practice Nurse] - (office will call patient at home with follow up appointment) Davion Ruelas DO [Partnered Physician] - 10/29/18 1:00 pm
[2018-10-27] MEDS ORDERED: *HR* Heparin 5,000 UNIT/ML VIAL ONE (12:21)
[2018-10-27] MEDS ORDERED: 0.9 % Sodium Chloride 250 ML IVC PRN (13:53)
[2018-10-27] MEDS ORDERED: *HR* Heparin 10,000 UNIT/10 ML VIAL IV PRN ×2 (13:59)
[2018-10-27] MEDS ORDERED: 0.9 % Sodium Chloride 1,000 ML PRIME SCH (14:00)
--- NOTE | 2018-10-27 15:53 | Event Note ---
Date of Encounter: 10/27/18 Time of Encounter: 15:49 Had a family meeting with his , Adelaide, nurse Shalonda, resident Dr. Nelly Mitchell and Dr. Camilo Rice. After a long discussion about his goals of care decided that she would like to change his CODE STATUS from full code to DNR/DNI CCA. She stated that he would not want to be intubated and has had that discussion with him in the past and would not want that again. Confirmed with her that even for short-term purposes he would be against it and she agrees. She states that if it is his time to go he should go without any extreme measures such as CPR or intubation. But she is okay with dialysis and other medical management.
[2018-10-27 16:01] LABS: INR 1.5; Prothrombin Time 16.6 Seconds (9.4-12.1)
--- NOTE | 2018-10-27 17:38 | Nephrology Progress Note ---
Date of Encounter: 10/27/18 Time of Encounter: 12:00 - Assessment and Plan (1) Acute on chronic kidney failure Current Visit: Yes Status: Acute Qualifiers: Acute renal failure type: unspecified Chronic kidney disease stage: stage 3 (moderate) Qualified Code(s): N17.9 - Acute kidney failure, unspecified; N18.3 - Chronic kidney disease, stage 3 (moderate) (2) Anemia Current Visit: Yes Status: Chronic Qualifiers: Anemia type: due to chronic kidney disease Chronic kidney disease stage: stage 3 (moderate) Qualified Code(s): N18.3 - Chronic kidney disease, stage 3 (moderate); D63.1 - Anemia in chronic kidney disease (3) Acute exacerbation of CHF (congestive heart failure) Current Visit: Yes Status: Acute Qualifiers: Heart failure type: systolic Qualified Code(s): I50.23 - Acute on chronic systolic (congestive) heart failure (4) Hypertension Current Visit: Yes Status: Chronic Qualifiers: Hypertension type: essential hypertension Qualified Code(s): I10 - Essential (primary) hypertension Subjective Principal diagnosis: CHF, AMI, C-Diff, GILES Interval history: Pt seen and examined appears very comfortable but still visibly dyspneic but denies any pain or discomfort. UOP noted poor, discussed goals of care with pt wanting to discuss with his family Objective - Vital Signs Vital signs: Vital Signs Temp Pulse Resp BP Pulse Ox 10/27/18 17:35 126/97 10/27/18 17:20 171/135 10/27/18 17:10 148/60 10/27/18 17:05 183/70 10/27/18 17:00 60 16 183/78 95 10/27/18 16:50 162/97 10/27/18 16:35 98.1 F 22 162/97 10/27/18 16:00 58 15 164/95 95 10/27/18 15:55 98.1 F 10/27/18 15:16 27 164/95 95 10/27/18 12:35 60 17 160/41 96 10/27/18 11:03 97.7 F 55 18 158/59 95 10/27/18 11:02 16 158/59 94 10/27/18 10:05 51 13 149/74 95 10/27/18 09:24 97.3 F L 60 21 131/77 95 10/27/18 08:10 96.3 F L 10/27/18 08:00 97.4 F L 61 22 131/59 95 10/27/18 07:43 23 95 10/27/18 07:00 96.3 F L 56 17 112/36 95 10/27/18 06:00 63 24 129/66 89 10/27/18 05:00 96.5 F L 59 17 128/43 93 10/27/18 04:00 65 23 147/55 91 10/27/18 03:30 20 141/66 93 10/27/18 03:00 56 16 141/86 94 10/27/18 02:00 61 16 159/74 95 10/27/18 01:00 68 16 137/60 91 10/27/18 00:00 97.9 F 60 15 165/65 93 10/26/18 23:31 21 163/65 92 10/26/18 23:00 64 25 163/65 90 10/26/18 22:00 67 21 90 10/26/18 21:00 60 16 156/59 92 10/26/18 20:13 20 147/68 93 10/26/18 20:00 63 14 147/68 94 10/26/18 19:00 97.1 F L 61 23 147/64 93 10/26/18 18:00 69 24 158/67 93 Intake and Output 10/27/18 10/27/18 10/27/18 07:59 15:59 23:59 Intake Total 107.3 / 707.3 600 / 707.3 Output Total Balance 74.3 / 616.3 -58 / 616.3 600 / 616.3 Intake: IV Fluids 107.3 / 107.3 Precedex Premix 400 mcg In 100 7.3 / 7.3 ml @ 0.2 MCG/KG/HR 5.915 mls/hr IVC .[id number] SHERIDAN Rx#: [id number] Flexbumin 25 gm In 100 ml @ 60 100 / 100 mls/hr IVPB Q6H SHERIDAN Rx#: [id number] Oral 0 / 0 Intake, Rinseback and Flushes 600 / 600 Output: Catheter 58 Other: Stool Size Moderate Stool Consistency soft Stool Characteristics Normal for Patient Stool Color Brown # Bowel Movements 1 Weight 119.2 kg Blood Glucose* 106 93 Hemodialysis Net Fluid Removed 1303 (mL) Patient Weight 10/27/18 23:59 Weight 119.2 kg - Lab 10/27/18 05:28 10/27/18 05:28 Most recent lab results 10/27/18 05:28 Calcium 8.3 L Consult Discharge Plan - Plan Additional Instructions: Follow up in wound care 1 week s/p discharge with Dr. Herrera Cleanse right foot with warm water and soap daily. Cover ulcer with calcium alginate, 4x4 dry gauze, and kerlix. Secure with medipore tape. Referrals: Antonio Savage, [employer] [Advanced Practice Nurse] - (office will call patient at home with follow up appointment) Davion Ruelas DO [Partnered Physician] - 10/29/18 1:00 pm
[2018-10-27 20:07] LABS: Activated Partial Thrombo Time 45.2 Seconds (26.0-36.0)
[2018-10-27] MEDS: *HR* Heparin 5,000 UNIT/ML VIAL SQ SCH (20:25)
[2018-10-27 22:56] LABS: Hematocrit 25.4 % (37.5-50.1); Hemoglobin 7.5 g/dL (12.9-16.9)
[2018-10-28] MEDS: Ipratropium/Albuterol Neb 3 ML IH SCH ×6 (00:03→20:42)
[2018-10-28] MEDS: *HR* Heparin 5,000 UNIT/ML VIAL SQ SCH (03:16)
[2018-10-28] MEDS: *HR* LORazepam 2 MG/ML VIAL IVP PRN ×7 (04:15→16:12)
[2018-10-28 04:44] LABS: Hematocrit 23.8 % (37.5-50.1); Immature Granulocytes % 0.6 % (0-4); Mean Corpuscular Volume 98.8 fL (83.0-100.0); Red Blood Count 2.41 M/mcL (4.19-5.50)
[2018-10-28 04:46] LABS: Eosinophils # 0.1 K/mcL (0.0-0.6); Eosinophils % 3.5 %; Immature Platelets 5.3 % (1.1-6.1); Lymphocytes # 0.7 K/mcL (0.6-4.6); Lymphocytes % 21.8 %; Mean Corpuscular HGB Conc 29.4 g/dL (31.6-35.5); Mean Platelet Volume 11.2 fL (9.4-12.4); Monocytes # 0.5 K/mcL (0.0-1.3); Monocytes % 15.1 %; Neutrophils # 1.8 K/mcL (1.6-8.9); Red Cell Distribution Width 18.2 % (11.5-14.5); White Blood Count 3.1 K/mcL (4.3-11.1)
[2018-10-28 04:53] LABS: Platelet Count 66 K/mcL (140-400)
[2018-10-28 04:58] LABS: INR 1.6; Prothrombin Time 17.8 Seconds (9.4-12.1)
[2018-10-28 05:02] LABS: Albumin 3.1 g/dL (3.5-5.7); Albumin/Globulin Ratio 0.9 (1.1-2.2); Bilirubin,Total 0.5 mg/dL (0.3-1.0); Calcium 8.1 mg/dL (8.6-10.3); Globulin 3.6 g/dL (2.4-3.5); Potassium 4.6 mEq/L (3.5-5.1); Total Protein 6.7 g/dL (6.4-8.9)
[2018-10-28] MEDS ORDERED: Scopolamine Patch 1.5 MG PATCH.TD72 TD ONE (06:42)
[2018-10-28] MEDS ORDERED: *HR* FentaNYL (PF) 100 MCG/2 ML VIAL EP ONE (06:44)
[2018-10-28] MEDS ORDERED: *HR* FentaNYL (PF) 100 MCG/2 ML VIAL IVP ONE (06:49)
[2018-10-28] MEDS ORDERED: *HR* FentaNYL (PF) 100 MCG/2 ML VIAL ONE (06:51)
[2018-10-28] MEDS: Budesonide/Formoterol 160/4.5 1 PUFF INH IH SCH ×2 (07:35→20:42)
[2018-10-28] MEDS ORDERED: *HR* Heparin 10,000 UNIT/10 ML VIAL IV PRN (07:40)
[2018-10-28] MEDS ORDERED: 0.9 % Sodium Chloride 250 ML IVC PRN (07:40)
[2018-10-28] MEDS ORDERED: 0.9 % Sodium Chloride 1,000 ML PRIME SCH (07:45)
[2018-10-28] MEDS ORDERED: *HR* LORazepam Oral Conc 2 MG/ML SL PRN (08:28)
[2018-10-28] MEDS ORDERED: Atropine Sulfate 1% 40 DROP/2 ML BOTTLE SL PRN (08:32)
[2018-10-28] MEDS: Insulin LISPRO 300 UNITS/3 ML VIAL SQ SCH ×2 (08:37→11:59)
[2018-10-28] MEDS: Vancomycin Oral Soln 125 MG/2.5 ML UDC PO SCH (08:39)
[2018-10-28] MEDS: hydrALAZINE 25 MG TABLET PO SCH (08:39)
--- NOTE | 2018-10-28 08:54 | Pulmonology Progress Note ---
<Jay Rice W - Last Filed: 10/28/18 10:19> Date of Encounter: 10/28/18 Assessment and Plan (1) Acute respiratory failure Current Visit: Yes Status: Acute Qualifiers: Respiratory failure complication: hypoxia and hypercapnia Qualified Code(s): J96.01 - Acute respiratory failure with hypoxia; J96.02 - Acute respiratory failure with hypercapnia (2) NSTEMI (non-ST elevated myocardial infarction) Current Visit: Yes Status: Acute (3) Acute on chronic kidney failure Current Visit: Yes Status: Acute Qualifiers: Acute renal failure type: unspecified Chronic kidney disease stage: stage 3 (moderate) Qualified Code(s): N17.9 - Acute kidney failure, unspecified; N18.3 - Chronic kidney disease, stage 3 (moderate) (4) Acute decompensated heart failure Current Visit: Yes Status: Acute (5) Metabolic acidosis Current Visit: Yes Status: Resolved (6) Metabolic encephalopathy Current Visit: Yes Status: Acute (7) C. difficile diarrhea Current Visit: Yes Status: Suspected (8) Goals of care, counseling/discussion Current Visit: Yes Status: Acute Objective PUL Vital signs: Last Vital Signs Temp 98.7 F 10/28/18 04:00 Pulse 65 10/28/18 08:29 Resp 21 10/28/18 08:29 BP 135/53 10/28/18 06:00 Pulse Ox 92 10/28/18 08:29 Results - Laboratory Findings CBC and BMP: 10/28/18 04:23 10/28/18 04:23 ABG ABG pH 7.30 pH Units (7.32-7.45) L 10/27/18 04:52 ABG pCO2 45 mmHg (35-45) 10/27/18 04:52 ABG pO2 61 mmHg (85-104) L 10/27/18 04:52 ABG O2 Saturation 88 % (95-98) L 10/27/18 04:52 PT/INR, D-dimer PT 17.8 Seconds (9.4-12.1) H 10/28/18 04:23 D-Dimer 1834 ng/mLFEU (0-500) H 10/27/18 18:18 Abnormal lab findings: Abnormal lab results WBC 3.1 K/mcL (4.3-11.1) L 10/28/18 04:23 RBC 2.41 M/mcL (4.19-5.50) L 10/28/18 04:23 Hgb 7.0 g/dL (12.9-16.9) L 10/28/18 04:23 Hct 23.8 % (37.5-50.1) L 10/28/18 04:23 MCV 101.1 fL (83.0-100.0) H 10/26/18 09:56 MCHC 29.4 g/dL (31.6-35.5) L 10/28/18 04:23 RDW 18.2 % (11.5-14.5) H 10/28/18 04:23 Plt Count 66 K/mcL (140-400) L 10/28/18 04:23 Band Neutrophils % 70.0 % (0-4) H 10/09/18 22:18 Neutrophils # 9.6 K/mcL (1.6-8.9) H 10/10/18 04:00 Lymphocytes # 0.5 K/mcL (0.6-4.6) L 10/11/18 04:05 Nucleated RBCs/100 WBC 0.5 /100 WBC (0) H 10/18/18 04:00 Platelet Estimate Decreased (Normal) L 10/20/18 04:24 ESR 79 mm/hr (0-10) H 10/10/18 18:56 PT 17.8 Seconds (9.4-12.1) H 10/28/18 04:23 APTT 45.2 Seconds (26.0-36.0) H 10/27/18 18:18 Fibrinogen 413 mg/dL (169-393) H 10/27/18 18:18 D-Dimer 1834 ng/mLFEU (0-500) H 10/27/18 18:18 Heparin Anti-Xa, Unfract 0.26 IU/mL (0.30-0.70) L 10/09/18 22:18 ABG pH 7.30 pH Units (7.32-7.45) L 10/27/18 04:52 ABG pCO2 61 mmHg (35-45) H 10/26/18 01:00 ABG pO2 61 mmHg (85-104) L 10/27/18 04:52 ABG Total CO2 27 mEq/L (20-26) H 10/26/18 01:00 ABG O2 Saturation 88 % (95-98) L 10/27/18 04:52 ABG Base Excess -4 mEq/L (-2 to 3) L 10/27/18 04:52 VBG pO2 69 mmHg (25-50) H 10/09/18 22:28 Sodium 135 mEq/L (136-145) L 10/17/18 03:33 Chloride 110 mEq/L (98-107) H 10/28/18 04:23 Carbon Dioxide 21 mEq/L (23-29) L 10/27/18 05:28 BUN 49 mg/dL (8-23) H 10/28/18 04:23 Creatinine 4.05 mg/dL (0.70-1.30) H 10/28/18 04:23 Est GFR ( Amer) 18 (> 60) L 10/28/18 04:23 Est GFR (Non-Af Amer) 15 (> 60) L 10/28/18 04:23 Glucose 68 mg/dL (70-105) L 10/28/18 04:23 POC Glucose 106 mg/dL (70-99) H 10/27/18 07:21 Calculated Osmolality 307 (280-300) H 10/28/18 04:23 Calcium 8.1 mg/dL (8.6-10.3) L 10/28/18 04:23 Venous Ioniz Calcium 1.13 mmol/L (1.15-1.35) L 10/19/18 05:26 Phosphorus 6.3 mg/dL (2.7-4.5) H 10/25/18 07:59 AST 8 Units/L (13-39) L 10/28/18 04:23 ALT 4 Units/L (7-52) L 10/28/18 04:23 Lactate Dehydrogenase 139 Units/L (140-271) L 10/27/18 18:18 Troponin I 31.20 ng/mL (< 0.04) H* 10/10/18 12:00 C-Reactive Protein 209 mg/L (Less than 10) H 10/10/18 19:23 B-Natriuretic Peptide 868 pg/mL (Less than 100) H 10/09/18 22:18 Serum Total Protein 5.9 g/dL (6.4-8.9) L 10/13/18 03:40 Albumin 3.1 g/dL (3.5-5.7) L 10/28/18 04:23 Globulin 3.6 g/dL (2.4-3.5) H 10/28/18 04:23 Albumin/Globulin Ratio 0.9 (1.1-2.2) L 10/28/18 04:23 Procalcitonin 53.10 ng/mL (0.00-0.15) H 10/10/18 05:00 Urine Clarity Cloudy (Clear) A 10/10/18 00:42 Urine Protein >=300 mg/dL (Neg-Trace) H 10/10/18 00:42 Urine Ketones Trace mg/dL (Negative) H 10/10/18 00:42 Urine Blood Trace (Negative) H 10/10/18 00:42 Urine Bilirubin Moderate (Negative) H 10/10/18 00:42 Urine Microscopic RBC 3-5 per hpf (0-3) H 10/10/18 00:42 Urine Microscopic WBC 5-15 per hpf (0-3) H 10/10/18 00:42 Ur Squamous Epith Cells Many per lpf (None-Few) H 10/10/18 00:42 Hyaline Casts Many per lpf (None-Few) H 10/10/18 00:42 Protein/Creatinin Ratio 1.00 mg/mg (0.00-0.20) H 10/13/18 15:30 Urine Total Protein 103 mg/dL (1-14) H 10/13/18 15:30 Nasal Screen MRSA (PCR) Positive (Negative) A 10/09/18 22:59 Stl C.diff Tox A&B Gene DETECTED (Not detect) A 10/09/18 13:59 Vancomycin Trough 23 mcg/mL (5-10) H 10/12/18 03:55 Crossmatch See Detail 10/19/18 08:29 - Clinical Findings Intake & Output: Intake & Output 10/27/18 10/28/18 10/28/18 23:59 07:59 15:59 Intake Total 1015 / 1122.3 Output Total 2600 / 2691 35 / 35 Balance -1585 / -1568.7 -35 / -35 Consult Discharge Plan - Plan Additional Instructions: Follow up in wound care 1 week s/p discharge with Dr. Herrera Cleanse right foot with warm water and soap daily. Cover ulcer with calcium alginate, 4x4 dry gauze, and kerlix. Secure with medipore tape. Referrals: Antonio Savage, [employer] [Advanced Practice Nurse] - (office will call patient at home with follow up appointment) Davion Ruelas DO [Partnered Physician] - 10/29/18 1:00 pm - Attending Attestation I examined this patient and my medical decision-making was reviewed with the Resident Physician. I agree with the documented findings, disposition and treatment plan as described except to the extent set forth below. We independently had [id number] contact with the patient Patient seen and examined at bedside Labs, radiology, chart personally reviewed. Management was reviewed during multidisciplinary critical care rounds. Unfortunate 63yo gentleman decompensated CHF s/t NSTEMI complicated by GILES on CKD. Very poor prognosis Per patient and families' wishes transition to Hospice. Appreciate Palliative care consultation. <Nelly Mitchell - Last Filed: 10/28/18 18:40> Date of Encounter: 10/28/18 Time of Encounter: 08:54 Assessment and Plan (1) Acute respiratory failure Current Visit: Yes Status: Acute Pt was transferred from [facility] due to respiratory failure, arrived on BiPAP Was initially tolerating BiPAP but was eventually intubated due to fatigure and the need for the patient to lie down for cardiac catheterization Pt intubated at 0030 on 10/10/18 Pt was extubated 10/15 at 0850 and has been tolerated extubation well He remains fluid overloaded and diuresis has slowed secondary to renal failure Pt is at moderate risk re-intubation during this stay On 10/25 the patient developed worsening shortness of breath and was placed on BiPAP again Stat ABG on 10/17/18 showed worsening acidosis and hypercapnia and chest x-ray shows worsening pulmonary edema Could not tolerate dialysis yesterday Patient decided to come off BiPAP Continue comfort measures Qualifiers: Respiratory failure complication: hypoxia and hypercapnia Qualified Code(s): J96.01 - Acute respiratory failure with hypoxia; J96.02 - Acute respiratory failure with hypercapnia (2) Acute decompensated heart failure Current Visit: Yes Status: Acute EF on limited echo was 25%, of a significant decrease from May 2018 when it was 60-65% He did not respond to medication for diuresis 7/28ches x-ray obtained last night shows worsening pulmonary edema Dialysis attempted on 10/27/18 to improve volume overload Family and patient have decided to stop medical management and go forth with him for care (3) Acute on chronic kidney failure Current Visit: Yes Status: Acute Hemodialysis was attempted yesterday and decent amount of fluid was removed Patient and family decided not to do any further dialysis regimens Qualifiers: Acute renal failure type: unspecified Chronic kidney disease stage: stage 3 (moderate) Qualified Code(s): N17.9 - Acute kidney failure, unspecified; N18.3 - Chronic kidney disease, stage 3 (moderate) (4) NSTEMI (non-ST elevated myocardial infarction) Current Visit: Yes Status: Acute Status post recent PCI was recommended to take antiplatelet therapy given his anemia and thrombocytopenia, on hold He has an allergy to statin and so this is on hold Acute kidney injury so JESSY inhibitor would not be beneficial Beta chilango contraindicated because of periodic bradycardia (5) Goals of care, counseling/discussion Current Visit: Yes Status: Acute There was a family meeting with and care providers to discuss goals of care prior to starting dialysis. had decided to go forth with dialysis to see if he tolerates it and has any improvement. After dialysis patient decided that he does not want any more dialysis sessions. Early this morning on 10/28/18 patient decided to come off the BiPAP. Family would like to go forth with comfort care and palliative care has been following the patient. CODE STATUS changed to DNR CC on 10/28/18. (6) C. difficile diarrhea Current Visit: Yes Status: Acute Continue vancomycin if patient tolerates This C. difficile recurrent and infectious disease recommends 6 week taper of vancomycin Continue contact precautions (7) Metabolic encephalopathy Current Visit: Yes Status: Acute Metabolic encephalopathy likely secondary to renal impairment Dialysis has not improved the encephalopathy Continue comfort measures (8) DVT prophylaxis Current Visit: Yes Status: Acute Patient is under comfort measures Subjective Principal diagnosis: CHF, AMI, C-Diff, GILES Interval history: Mr. Hernandez was seen at bedside this morning. His family was at bedside with him. Overnight he did not tolerate the BiPAP removed it and reported that he wants to remain comfortable. and family decided to change his CODE STATUS to DNR CC. Objective PUL Vital signs: Last Vital Signs Temp 98.7 F 10/28/18 04:00 Pulse 65 07/30/19 08:29 Resp 21 10/28/18 08:29 BP 135/53 10/28/18 06:00 Pulse Ox 92 10/28/18 08:29 General appearance: lethargic Eyes: nonicteric ENT: oropharynx moist Neck: supple, other (Right lateral neck appears to have hematoma) Auscultation: bilateral: diminished breath sounds (Lower lung bases) Cardiovascular: regular rate and rhythm Gastrointestinal: soft, non-tender Integumentary: normal Extremities: no cyanosis, no ischemia or petechiae non-focal exam, pupils equal and round other (Unable to assess due to patient's medical condition) Results - Laboratory Findings CBC and BMP: 10/28/18 04:23 10/28/18 04:23 ABG ABG pH 7.30 pH Units (7.32-7.45) L 10/27/18 04:52 ABG pCO2 45 mmHg (35-45) 10/27/18 04:52 ABG pO2 61 mmHg (85-104) L 10/27/18 04:52 ABG O2 Saturation 88 % (95-98) L 10/27/18 04:52 PT/INR, D-dimer PT 17.8 Seconds (9.4-12.1) H 10/28/18 04:23 D-Dimer 1834 ng/mLFEU (0-500) H 10/27/18 18:18 Abnormal lab findings: Abnormal lab results WBC 3.1 K/mcL (4.3-11.1) L 10/28/18 04:23 RBC 2.41 M/mcL (4.19-5.50) L 10/28/18 04:23 Hgb 7.0 g/dL (12.9-16.9) L 10/28/18 04:23 Hct 23.8 % (37.5-50.1) L 10/28/18 04:23 MCV 101.1 fL (83.0-100.0) H 10/26/18 09:56 MCHC 29.4 g/dL (31.6-35.5) L 10/28/18 04:23 RDW 18.2 % (11.5-14.5) H 10/28/18 04:23 Plt Count 66 K/mcL (140-400) L 10/28/18 04:23 Band Neutrophils % 70.0 % (0-4) H 10/09/18 22:18 Neutrophils # 9.6 K/mcL (1.6-8.9) H 10/10/18 04:00 Lymphocytes # 0.5 K/mcL (0.6-4.6) L 10/11/18 04:05 Nucleated RBCs/100 WBC 0.5 /100 WBC (0) H 10/18/18 04:00 Platelet Estimate Decreased (Normal) L 10/20/18 04:24 ESR 79 mm/hr (0-10) H 10/10/18 18:56 PT 17.8 Seconds (9.4-12.1) H 10/28/18 04:23 APTT 45.2 Seconds (26.0-36.0) H 10/27/18 18:18 Fibrinogen 413 mg/dL (169-393) H 10/27/18 18:18 D-Dimer 1834 ng/mLFEU (0-500) H 10/27/18 18:18 Heparin Anti-Xa, Unfract 0.26 IU/mL (0.30-0.70) L 10/09/18 22:18 ABG pH 7.30 pH Units (7.32-7.45) L 10/27/18 04:52 ABG pCO2 61 mmHg (35-45) H 10/26/18 01:00 ABG pO2 61 mmHg (85-104) L 10/27/18 04:52 ABG Total CO2 27 mEq/L (20-26) H 10/26/18 01:00 ABG O2 Saturation 88 % (95-98) L 10/27/18 04:52 ABG Base Excess -4 mEq/L (-2 to 3) L 10/27/18 04:52 VBG pO2 69 mmHg (25-50) H 10/09/18 22:28 Sodium 135 mEq/L (136-145) L 10/17/18 03:33 Chloride 110 mEq/L (98-107) H 10/28/18 04:23 Carbon Dioxide 21 mEq/L (23-29) L 10/27/18 05:28 BUN 49 mg/dL (8-23) H 10/28/18 04:23 Creatinine 4.05 mg/dL (0.70-1.30) H 10/28/18 04:23 Est GFR ( Amer) 18 (> 60) L 10/28/18 04:23 Est GFR (Non-Af Amer) 15 (> 60) L 10/28/18 04:23 Glucose 68 mg/dL (70-105) L 10/28/18 04:23 POC Glucose 106 mg/dL (70-99) H 10/27/18 07:21 Calculated Osmolality 307 (280-300) H 10/28/18 04:23 Calcium 8.1 mg/dL (8.6-10.3) L 10/28/18 04:23 Venous Ioniz Calcium 1.13 mmol/L (1.15-1.35) L 10/19/18 05:26 Phosphorus 6.3 mg/dL (2.7-4.5) H 10/25/18 07:59 AST 8 Units/L (13-39) L 10/28/18 04:23 ALT 4 Units/L (7-52) L 10/28/18 04:23 Lactate Dehydrogenase 139 Units/L (140-271) L 10/27/18 18:18 Troponin I 31.20 ng/mL (< 0.04) H* 10/10/18 12:00 C-Reactive Protein 209 mg/L (Less than 10) H 10/10/18 19:23 B-Natriuretic Peptide 868 pg/mL (Less than 100) H 10/09/18 22:18 Serum Total Protein 5.9 g/dL (6.4-8.9) L 10/13/18 03:40 Albumin 3.1 g/dL (3.5-5.7) L 10/28/18 04:23 Globulin 3.6 g/dL (2.4-3.5) H 10/28/18 04:23 Albumin/Globulin Ratio 0.9 (1.1-2.2) L 10/28/18 04:23 Procalcitonin 53.10 ng/mL (0.00-0.15) H 10/10/18 05:00 Urine Clarity Cloudy (Clear) A 10/10/18 00:42 Urine Protein >=300 mg/dL (Neg-Trace) H 10/10/18 00:42 Urine Ketones Trace mg/dL (Negative) H 10/10/18 00:42 Urine Blood Trace (Negative) H 10/10/18 00:42 Urine Bilirubin Moderate (Negative) H 10/10/18 00:42 Urine Microscopic RBC 3-5 per hpf (0-3) H 10/10/18 00:42 Urine Microscopic WBC 5-15 per hpf (0-3) H 10/10/18 00:42 Ur Squamous Epith Cells Many per lpf (None-Few) H 10/10/18 00:42 Hyaline Casts Many per lpf (None-Few) H 10/10/18 00:42 Protein/Creatinin Ratio 1.00 mg/mg (0.00-0.20) H 10/13/18 15:30 Urine Total Protein 103 mg/dL (1-14) H 10/13/18 15:30 Nasal Screen MRSA (PCR) Positive (Negative) A 10/09/18 22:59 Stl C.diff Tox A&B Gene DETECTED (Not detect) A 10/09/18 13:59 Vancomycin Trough 23 mcg/mL (5-10) H 10/12/18 03:55 Crossmatch See Detail 10/19/18 08:29 - Clinical Findings Intake & Output: Intake & Output 10/27/18 10/28/18 10/28/18 23:59 07:59 15:59 Intake Total 1015 / 1122.3 Output Total 2600 / 2691 35 / 35 Balance -1585 / -1568.7 -35 / -35
[2018-10-28] MEDS ORDERED: Aspirin 81 MG TAB.CHEW PO SCH (09:00)
[2018-10-28] MEDS: Dexmedetomidine HCl 400 MCG/100 ML MLS IVC SCH (09:42)
[2018-10-28 11:33] LABS: Hepatitis B Surface Antibody < 3.10 mIU/mL
[2018-10-28 11:44] LABS: Hepatitis B Surface Antigen Nonreactive (Nonreactive)
--- NOTE | 2018-10-28 15:17 | Podiatry Progress Note ---
Date of Encounter: 10/28/18 Time of Encounter: 14:00 - Assessment and Plan (1) Right foot ulcer Current Visit: Yes Status: Chronic Patient now DNR CC PLAN: Podiatry signing off- chronic ulceration without evidence of infection Patient being provided comfort care- poor prognosis Changed dressing at bedside today to comfort family- no issues noted Change dressing to RLE PRN if saturated Call if podiatry needs reconsulted removed dressing Cleaned with saline, pat dry Applied 4x4 and kerlix bulk dressing Reapplied heel medix boot for heel elevation and foot protection. Qualifiers: Non-pressure ulcer stage: limited to breakdown of skin Qualified Code(s): L97.511 - Non-pressure chronic ulcer of other part of right foot limited to breakdown of skin Subjective Principal diagnosis: CHF, AMI, C-Diff, GILES Interval history: Family at bedside Patient now DNR- comfort care only at this time. Nurse providing ativan for comfort. Does not awaken. Labored breathing. Objective - Vital Signs Vital Signs: Vital Signs Temp Pulse Resp BP Pulse Ox 10/28/18 14:00 95 10/28/18 13:14 90 10/28/18 12:00 83 10/28/18 11:21 91 10/28/18 09:44 69 26 92 10/28/18 08:29 65 21 92 10/28/18 06:00 60 32 135/53 92 10/28/18 05:00 71 26 131/61 99 10/28/18 04:00 98.7 F 63 25 131/39 97 10/28/18 03:52 27 139/54 100 10/28/18 03:00 55 32 133/51 100 10/28/18 02:00 59 18 113/47 97 10/28/18 01:00 54 24 79/65 95 10/28/18 00:06 24 130/52 97 10/28/18 00:00 48 22 113/54 96 10/27/18 23:00 50 26 129/64 94 10/27/18 22:00 51 28 135/74 95 10/27/18 21:00 51 24 170/55 95 10/27/18 20:45 96.2 F L 55 20 149/65 94 10/27/18 20:35 28 149/65 95 10/27/18 20:04 96.2 F L 10/27/18 20:00 56 20 150/86 94 10/27/18 19:00 45 18 137/88 87 10/27/18 18:56 98.1 F 22 145/79 10/27/18 18:35 132/77 10/27/18 18:20 140/91 10/27/18 18:05 111/46 10/27/18 18:00 158/100 10/27/18 17:50 147/88 10/27/18 17:43 97 F L 53 16 122/70 97 10/27/18 17:40 134/115 10/27/18 17:35 126/97 10/27/18 17:29 97.2 F L 50 14 121/106 97 10/27/18 17:20 171/135 10/27/18 17:10 148/60 10/27/18 17:05 183/70 10/27/18 17:00 60 16 183/78 95 10/27/18 16:50 162/97 10/27/18 16:35 98.1 F 22 162/97 10/27/18 16:00 58 15 164/95 95 10/27/18 15:55 98.1 F 10/27/18 15:16 27 164/95 95 Intake and Output 10/27/18 10/28/18 10/28/18 23:59 07:59 15:59 Intake Total 1015 / 1122.3 0 / 0 Output Total 2600 / 2691 35 / 35 Balance -1585 / -1568.7 -35 / -35 0 / -35 Intake: Oral 0 / 0 0 / 0 Blood Product 415 / 415 Platelet Pheresis Lp Irr 1st 415 / 415 Unit [id number] Intake, Rinseback and Flushes 600 / 600 Output: Urine 0 / 0 Total Dialysis (HD) Output 2600 / 2600 Catheter 0 / 91 35 / 35 Other: Blood Glucose* 88 Hemodialysis Net Fluid Removed 2000 (mL) - Exam Exam: Constitiutional: Lethargic, does not awaken Vascular: 1/4 DP/PT RLE, CFT <3 sec to all digits RLE, warm to warm from tibia to toes RLE, L BKA. Pitting edema Neurologic: no plantar response RLE Dermatologic: Richard grade II ulceration measuring 0.3 x 0.3 x scabbed. no depth, no drainage noted, anasarca edema, no lymphangitis noted to right foot, erythema noted to RLE, 2/4 edema noted to RLE, xerosis of skin noted. No active infection to foot. - Lab Result Diagrams: 10/28/18 04:23 10/28/18 04:23 Labs: Abnormal lab results WBC 3.1 K/mcL (4.3-11.1) L 10/28/18 04:23 RBC 2.41 M/mcL (4.19-5.50) L 10/28/18 04:23 Hgb 7.0 g/dL (12.9-16.9) L 10/28/18 04:23 Hct 23.8 % (37.5-50.1) L 10/28/18 04:23 MCV 101.1 fL (83.0-100.0) H 10/26/18 09:56 MCHC 29.4 g/dL (31.6-35.5) L 10/28/18 04:23 RDW 18.2 % (11.5-14.5) H 10/28/18 04:23 Plt Count 66 K/mcL (140-400) L 10/28/18 04:23 Band Neutrophils % 70.0 % (0-4) H 10/09/18 22:18 Neutrophils # 9.6 K/mcL (1.6-8.9) H 10/10/18 04:00 Lymphocytes # 0.5 K/mcL (0.6-4.6) L 10/11/18 04:05 Nucleated RBCs/100 WBC 0.5 /100 WBC (0) H 10/18/18 04:00 Platelet Estimate Decreased (Normal) L 10/20/18 04:24 ESR 79 mm/hr (0-10) H 10/10/18 18:56 PT 17.8 Seconds (9.4-12.1) H 10/28/18 04:23 APTT 45.2 Seconds (26.0-36.0) H 10/27/18 18:18 Fibrinogen 413 mg/dL (169-393) H 10/27/18 18:18 D-Dimer 1834 ng/mLFEU (0-500) H 10/27/18 18:18 Heparin Anti-Xa, Unfract 0.26 IU/mL (0.30-0.70) L 10/09/18 22:18 ABG pH 7.30 pH Units (7.32-7.45) L 10/27/18 04:52 ABG pCO2 61 mmHg (35-45) H 10/26/18 01:00 ABG pO2 61 mmHg (85-104) L 10/27/18 04:52 ABG Total CO2 27 mEq/L (20-26) H 10/26/18 01:00 ABG O2 Saturation 88 % (95-98) L 10/27/18 04:52 ABG Base Excess -4 mEq/L (-2 to 3) L 10/27/18 04:52 VBG pO2 69 mmHg (25-50) H 10/09/18 22:28 Sodium 135 mEq/L (136-145) L 10/17/18 03:33 Chloride 110 mEq/L (98-107) H 10/28/18 04:23 Carbon Dioxide 21 mEq/L (23-29) L 10/27/18 05:28 BUN 49 mg/dL (8-23) H 10/28/18 04:23 Creatinine 4.05 mg/dL (0.70-1.30) H 10/28/18 04:23 Est GFR ( Amer) 18 (> 60) L 10/28/18 04:23 Est GFR (Non-Af Amer) 15 (> 60) L 10/28/18 04:23 Glucose 68 mg/dL (70-105) L 10/28/18 04:23 POC Glucose 106 mg/dL (70-99) H 10/27/18 07:21 Calculated Osmolality 307 (280-300) H 10/28/18 04:23 Calcium 8.1 mg/dL (8.6-10.3) L 10/28/18 04:23 Venous Ioniz Calcium 1.13 mmol/L (1.15-1.35) L 10/19/18 05:26 Phosphorus 6.3 mg/dL (2.7-4.5) H 10/25/18 07:59 AST 8 Units/L (13-39) L 10/28/18 04:23 ALT 4 Units/L (7-52) L 10/28/18 04:23 Lactate Dehydrogenase 139 Units/L (140-271) L 10/27/18 18:18 Troponin I 31.20 ng/mL (< 0.04) H* 10/10/18 12:00 C-Reactive Protein 209 mg/L (Less than 10) H 10/10/18 19:23 B-Natriuretic Peptide 868 pg/mL (Less than 100) H 10/09/18 22:18 Serum Total Protein 5.9 g/dL (6.4-8.9) L 10/13/18 03:40 Albumin 3.1 g/dL (3.5-5.7) L 10/28/18 04:23 Globulin 3.6 g/dL (2.4-3.5) H 10/28/18 04:23 Albumin/Globulin Ratio 0.9 (1.1-2.2) L 10/28/18 04:23 Procalcitonin 53.10 ng/mL (0.00-0.15) H 10/10/18 05:00 Urine Clarity Cloudy (Clear) A 10/10/18 00:42 Urine Protein >=300 mg/dL (Neg-Trace) H 10/10/18 00:42 Urine Ketones Trace mg/dL (Negative) H 10/10/18 00:42 Urine Blood Trace (Negative) H 10/10/18 00:42 Urine Bilirubin Moderate (Negative) H 10/10/18 00:42 Urine Microscopic RBC 3-5 per hpf (0-3) H 10/10/18 00:42 Urine Microscopic WBC 5-15 per hpf (0-3) H 10/10/18 00:42 Ur Squamous Epith Cells Many per lpf (None-Few) H 10/10/18 00:42 Hyaline Casts Many per lpf (None-Few) H 10/10/18 00:42 Protein/Creatinin Ratio 1.00 mg/mg (0.00-0.20) H 10/13/18 15:30 Urine Total Protein 103 mg/dL (1-14) H 10/13/18 15:30 Nasal Screen MRSA (PCR) Positive (Negative) A 10/09/18 22:59 Stl C.diff Tox A&B Gene DETECTED (Not detect) A 10/09/18 13:59 Vancomycin Trough 23 mcg/mL (5-10) H 10/12/18 03:55 Hep Bs Antibody < 3.10 mIU/mL (10.00-) L 10/28/18 10:45 Crossmatch See Detail 10/19/18 08:29 Consult Discharge Plan - Plan Additional Instructions: Follow up in wound care 1 week s/p discharge with Dr. Herrera Cleanse right foot with warm water and soap daily. Cover ulcer with calcium alginate, 4x4 dry gauze, and kerlix. Secure with medipore tape. Referrals: Antonio Savage, [employer]IATE [Advanced Practice Nurse] - (office will call patient at home with follow up appointment) Davion Ruelas DO [Partnered Physician] - 10/29/18 1:00 pm
--- NOTE | 2018-10-28 15:50 | Palliative Progress Note ---
Date of Encounter: 10/28/18 Time of Encounter: 11:00 - Assessment and plan (1) Anxiety Current Visit: Yes Status: Acute Assessment and plan: Patient restless and moaning. PRN Ativan for comfort. (2) Dyspnea Current Visit: No Status: Acute Assessment and plan: Currently off Bipap now. O2 via oxy mask. Transitioned to comfort care. HOB up Duonebs Symbicort Suction PRN Atropine gtts PRN Qualifiers: Dyspnea type: unspecified Qualified Code(s): R06.00 - Dyspnea, unspecified (3) Goals of care, counseling/discussion Current Visit: Yes Status: Acute Assessment and plan: IConducted bedside conversation with Trisha and daughter Kari and son. Patient now comfort care. Conducted bedside prayer and educated on clinical decompensation. Patient expected to within next 24 - 48 hrs. O2 per face mask. desired. HOB up. only desires comfort care medications. PO Vanco stopped as patient unable to take po safely. (4) Palliative care encounter Current Visit: Yes Status: Acute (5) Acute HI Current Visit: Yes Status: Acute Assessment and plan: Patient EF 25% from 65%. Patient now comfort care. Qualifiers: Myocardial infarction type: unspecified Involved coronary artery: unspecified coronary artery Qualified Code(s): I21.9 - Acute myocardial infarction, unspecified - Time Spent With Patient Total time spent is greater than 50% in coordination of care (as documented) at patient's floor/unit and/or counseling patient: - Subjective Interval history: Patient removed Bipap this AM and informed family that he wanted to leave it off. , daughter and son at bedside. Patient pale, warm and not responsive to verbal command. Updated family at bedside. - Constitutional Vitals: Abnormal lab results WBC 3.1 K/mcL (4.3-11.1) L 10/28/18 04:23 RBC 2.41 M/mcL (4.19-5.50) L 10/28/18 04:23 Hgb 7.0 g/dL (12.9-16.9) L 10/28/18 04:23 Hct 23.8 % (37.5-50.1) L 10/28/18 04:23 MCV 101.1 fL (83.0-100.0) H 10/26/18 09:56 MCHC 29.4 g/dL (31.6-35.5) L 10/28/18 04:23 RDW 18.2 % (11.5-14.5) H 10/28/18 04:23 Plt Count 66 K/mcL (140-400) L 10/28/18 04:23 Band Neutrophils % 70.0 % (0-4) H 10/09/18 22:18 Neutrophils # 9.6 K/mcL (1.6-8.9) H 10/10/18 04:00 Lymphocytes # 0.5 K/mcL (0.6-4.6) L 10/11/18 04:05 Nucleated RBCs/100 WBC 0.5 /100 WBC (0) H 10/18/18 04:00 Platelet Estimate Decreased (Normal) L 10/20/18 04:24 ESR 79 mm/hr (0-10) H 10/10/18 18:56 PT 17.8 Seconds (9.4-12.1) H 10/28/18 04:23 APTT 45.2 Seconds (26.0-36.0) H 10/27/18 18:18 Fibrinogen 413 mg/dL (169-393) H 10/27/18 18:18 D-Dimer 1834 ng/mLFEU (0-500) H 10/27/18 18:18 Heparin Anti-Xa, Unfract 0.26 IU/mL (0.30-0.70) L 10/09/18 22:18 ABG pH 7.30 pH Units (7.32-7.45) L 10/27/18 04:52 ABG pCO2 61 mmHg (35-45) H 10/26/18 01:00 ABG pO2 61 mmHg (85-104) L 10/27/18 04:52 ABG Total CO2 27 mEq/L (20-26) H 10/26/18 01:00 ABG O2 Saturation 88 % (95-98) L 10/27/18 04:52 ABG Base Excess -4 mEq/L (-2 to 3) L 10/27/18 04:52 VBG pO2 69 mmHg (25-50) H 10/09/18 22:28 Sodium 135 mEq/L (136-145) L 10/17/18 03:33 Chloride 110 mEq/L (98-107) H 10/28/18 04:23 Carbon Dioxide 21 mEq/L (23-29) L 10/27/18 05:28 BUN 49 mg/dL (8-23) H 10/28/18 04:23 Creatinine 4.05 mg/dL (0.70-1.30) H 10/28/18 04:23 Est GFR ( Amer) 18 (> 60) L 10/28/18 04:23 Est GFR (Non-Af Amer) 15 (> 60) L 10/28/18 04:23 Glucose 68 mg/dL (70-105) L 10/28/18 04:23 POC Glucose 106 mg/dL (70-99) H 10/27/18 07:21 Calculated Osmolality 307 (280-300) H 10/28/18 04:23 Calcium 8.1 mg/dL (8.6-10.3) L 10/28/18 04:23 Venous Ioniz Calcium 1.13 mmol/L (1.15-1.35) L 10/19/18 05:26 Phosphorus 6.3 mg/dL (2.7-4.5) H 10/25/18 07:59 AST 8 Units/L (13-39) L 10/28/18 04:23 ALT 4 Units/L (7-52) L 10/28/18 04:23 Lactate Dehydrogenase 139 Units/L (140-271) L 10/27/18 18:18 Troponin I 31.20 ng/mL (< 0.04) H* 10/10/18 12:00 C-Reactive Protein 209 mg/L (Less than 10) H 10/10/18 19:23 B-Natriuretic Peptide 868 pg/mL (Less than 100) H 10/09/18 22:18 Serum Total Protein 5.9 g/dL (6.4-8.9) L 10/13/18 03:40 Albumin 3.1 g/dL (3.5-5.7) L 10/28/18 04:23 Globulin 3.6 g/dL (2.4-3.5) H 10/28/18 04:23 Albumin/Globulin Ratio 0.9 (1.1-2.2) L 10/28/18 04:23 Procalcitonin 53.10 ng/mL (0.00-0.15) H 10/10/18 05:00 Urine Clarity Cloudy (Clear) A 10/10/18 00:42 Urine Protein >=300 mg/dL (Neg-Trace) H 10/10/18 00:42 Urine Ketones Trace mg/dL (Negative) H 10/10/18 00:42 Urine Blood Trace (Negative) H 10/10/18 00:42 Urine Bilirubin Moderate (Negative) H 10/10/18 00:42 Urine Microscopic RBC 3-5 per hpf (0-3) H 10/10/18 00:42 Urine Microscopic WBC 5-15 per hpf (0-3) H 10/10/18 00:42 Ur Squamous Epith Cells Many per lpf (None-Few) H 10/10/18 00:42 Hyaline Casts Many per lpf (None-Few) H 10/10/18 00:42 Protein/Creatinin Ratio 1.00 mg/mg (0.00-0.20) H 10/13/18 15:30 Urine Total Protein 103 mg/dL (1-14) H 10/13/18 15:30 Nasal Screen MRSA (PCR) Positive (Negative) A 10/09/18 22:59 Stl C.diff Tox A&B Gene DETECTED (Not detect) A 10/09/18 13:59 Vancomycin Trough 23 mcg/mL (5-10) H 10/12/18 03:55 Hep Bs Antibody < 3.10 mIU/mL (10.00-) L 10/28/18 10:45 Crossmatch See Detail 10/19/18 08:29 - Head Head exam: Present: atraumatic, normal inspection - Eye Eye exam: Present: PERRL - ENT ENT exam: Present: mucous membranes moist - Neck Additional comments: Patient with pressure dressing to left side of neck, HD line site. Patient with oozing of blood from site. - Respiratory Respiratory exam: Present: decreased breath sounds - Cardiovascular Cardiovascular exam: Present: irregular rhythm, +S1, +S2 - GI/Abdominal GI/Abdominal exam: Present: soft - Rectal Rectal exam: Present: deferred - exam: Present: scrotal swelling Additional comments: Vázquez catheter in place. Dark brown urine draining. - Extremities Exam Additional comments: S/P left BKA Right foot ulcer dressing CDI - Neurological Exam Neurological exam: Present: altered - Psychiatric Psychiatric exam: Present: flat affect - Skin Skin exam: Present: pallor, warm Palliative Quality Palliative Quality: Screen for Code Status: Yes, Screen for Goals of Care: Yes, Screen for Pain: Yes, Screen for Nausea/Vomitting: Yes Code Status: 10/09/18 20:50 CODE [Resuscitation Status: Active] [RES] Routine Comment: Resuscitation Status: Full Code 10/27/18 15:49 CODE [Resuscitation Status: Active] [RES] Routine Comment: Resuscitation Status: [id number] 10/28/18 06:40 CODE [Resuscitation Status: Active] [RES] Routine Comment: Resuscitation Status: DNR-Comfort Care - Labs CBC & Chem 7: 10/28/18 04:23 10/28/18 04:23 Labs: Laboratory Results - last 24 hr 10/27/18 10/27/18 10/27/18 07:21 11:08 15:05 WBC RBC Hgb Hct MCV MCH MCHC RDW Plt Count MPV Immature Gran % Seg Neutrophils % Lymphocytes % Monocytes % Eosinophils % Basophils % Neutrophils # Lymphocytes # Monocytes # Eosinophils # Basophils # Immature Plt Fraction Smear Path Review PT 16.6 H INR 1.5 APTT Fibrinogen D-Dimer Sodium Potassium Chloride Carbon Dioxide BUN Creatinine Est GFR ( Amer) Est GFR (Non-Af Amer) BUN/Creatinine Ratio Glucose POC Glucose 106 H 93 Calculated Osmolality Calcium Total Bilirubin AST ALT Alkaline Phosphatase Lactate Dehydrogenase Serum Total Protein Albumin Globulin Albumin/Globulin Ratio Hep Bs Antigen Hep Bs Antibody Blood Type Antibody Screen 10/27/18 10/27/18 10/27/18 15:29 15:49 18:18 WBC RBC Hgb Hct MCV MCH MCHC RDW Plt Count MPV Immature Gran % Seg Neutrophils % Lymphocytes % Monocytes % Eosinophils % Basophils % Neutrophils # Lymphocytes # Monocytes # Eosinophils # Basophils # Immature Plt Fraction Smear Path Review See Below PT INR APTT Fibrinogen D-Dimer Sodium Potassium Chloride Carbon Dioxide BUN Creatinine Est GFR ( Amer) Est GFR (Non-Af Amer) BUN/Creatinine Ratio Glucose POC Glucose 96 Calculated Osmolality Calcium Total Bilirubin AST ALT Alkaline Phosphatase Lactate Dehydrogenase Serum Total Protein Albumin Globulin Albumin/Globulin Ratio Hep Bs Antigen Hep Bs Antibody Blood Type A POSITIVE Antibody Screen NEGATIVE 10/27/18 10/27/18 10/27/18 18:18 18:18 19:48 WBC RBC Hgb Hct MCV MCH MCHC RDW Plt Count MPV Immature Gran % Seg Neutrophils % Lymphocytes % Monocytes % Eosinophils % Basophils % Neutrophils # Lymphocytes # Monocytes # Eosinophils # Basophils # Immature Plt Fraction Smear Path Review PT INR APTT 45.2 H Fibrinogen 413 H D-Dimer 1834 H Sodium Potassium Chloride Carbon Dioxide BUN Creatinine Est GFR ( Amer) Est GFR (Non-Af Amer) BUN/Creatinine Ratio Glucose POC Glucose 88 Calculated Osmolality Calcium Total Bilirubin AST ALT Alkaline Phosphatase Lactate Dehydrogenase 139 L Serum Total Protein Albumin Globulin Albumin/Globulin Ratio Hep Bs Antigen Hep Bs Antibody Blood Type Antibody Screen 10/27/18 10/28/18 10/28/18 22:45 04:23 04:23 WBC 3.1 L RBC 2.41 L Hgb 7.5 L 7.0 L Hct 25.4 L 23.8 L MCV 98.8 MCH 29.0 MCHC 29.4 L RDW 18.2 H Plt Count 66 L MPV 11.2 Immature Gran % 0.6 Seg Neutrophils % 58.0 Lymphocytes % 21.8 Monocytes % 15.1 Eosinophils % 3.5 Basophils % 1.0 Neutrophils # 1.8 Lymphocytes # 0.7 Monocytes # 0.5 Eosinophils # 0.1 Basophils # 0.0 Immature Plt Fraction 5.3 Smear Path Review PT 17.8 H INR 1.6 APTT Fibrinogen D-Dimer Sodium Potassium Chloride Carbon Dioxide BUN Creatinine Est GFR ( Amer) Est GFR (Non-Af Amer) BUN/Creatinine Ratio Glucose POC Glucose Calculated Osmolality Calcium Total Bilirubin AST ALT Alkaline Phosphatase Lactate Dehydrogenase Serum Total Protein Albumin Globulin Albumin/Globulin Ratio Hep Bs Antigen Hep Bs Antibody Blood Type Antibody Screen 10/28/18 10/28/18 04:23 10:45 WBC RBC Hgb Hct MCV MCH MCHC RDW Plt Count MPV Immature Gran % Seg Neutrophils % Lymphocytes % Monocytes % Eosinophils % Basophils % Neutrophils # Lymphocytes # Monocytes # Eosinophils # Basophils # Immature Plt Fraction Smear Path Review PT INR APTT Fibrinogen D-Dimer Sodium 143 Potassium 4.6 Chloride 110 H Carbon Dioxide 24 BUN 49 H Creatinine 4.05 H Est GFR ( Amer) 18 L Est GFR (Non-Af Amer) 15 L BUN/Creatinine Ratio 12 Glucose 68 L POC Glucose Calculated Osmolality 307 H Calcium 8.1 L Total Bilirubin 0.5 AST 8 L ALT 4 L Alkaline Phosphatase 46 Lactate Dehydrogenase Serum Total Protein 6.7 Albumin 3.1 L Globulin 3.6 H Albumin/Globulin Ratio 0.9 L Hep Bs Antigen Nonreactive Hep Bs Antibody < 3.10 L Blood Type Antibody Screen - ABG Interpretation ABG results: ABG ABG pH 7.30 pH Units (7.32-7.45) L 10/27/18 04:52 ABG pCO2 45 mmHg (35-45) 10/27/18 04:52 ABG pO2 61 mmHg (85-104) L 10/27/18 04:52 ABG O2 Saturation 88 % (95-98) L 10/27/18 04:52 PT/INR, D-dimer PT 17.8 Seconds (9.4-12.1) H 10/28/18 04:23 D-Dimer 1834 ng/mLFEU (0-500) H 10/27/18 18:18 Palliative Scale - Palliative Performance Scale How ambulatory is this patient?: Totally bed bound What is patient's level of activity and evidence of disease?: Unable to do any work, Extensive disease How much self-care assistance does patient require?: Considerable assistance required How much oral intake does the patient have?: Normal or reduced What is this patient's level of consciousness?: Full or confusion Palliative Performance Score: 60 % Consult Discharge Plan - Plan Additional Instructions: Follow up in wound care 1 week s/p discharge with Dr. Herrera Cleanse right foot with warm water and soap daily. Cover ulcer with calcium alginate, 4x4 dry gauze, and kerlix. Secure with medipore tape. Referrals: Antonio Savage, [employer] [Advanced Practice Nurse] - (office will call patient at home with follow up appointment) Davion Ruelas DO [Partnered Physician] - 10/29/18 1:00 pm
[2018-10-28 19:14] VITALS: BP 60/27
--- NOTE | 2018-10-28 20:12 | Death Note ---
Pronouncement Note - Date and Time of Date of : 10/28/18 Time of : 19:25 - PCOD Preliminary cause of : Respiratory arrest - Summary Additional details: I was informed by nursing staff that patient at 19:25. When I entered the room, 2 family members were present at bedside. No heart sounds were detected on auscultation. No brachial, dorsal, or radial pulses were detected. No breath sounds or chest wall rise was present. Pupils were fixed and dilated, and were nonreactive to light. A right-sided IJ HD line was present, and there was a small amount of dried blood present around the dressing. - Additional Data Confirmation of : no pulse, no respirations, no heart sounds, pupils fixed and dilated Family: at bedside Attending/PCP notified?: No Attending physician: Chanelle Blanca MD Was code activated?: No Autopsy requested?: No fur examiner notified?: No Organ bank notified?: No
--- NOTE | 2018-10-29 00:08 | Nephrology Progress Note ---
Date of Encounter: 10/28/18 Time of Encounter: 12:00 - Assessment and Plan (1) Acute respiratory failure Current Visit: Yes Status: Acute Now with hospice care Qualifiers: Respiratory failure complication: hypoxia and hypercapnia Qualified Code(s): J96.01 - Acute respiratory failure with hypoxia; J96.02 - Acute respiratory failure with hypercapnia (2) Acute exacerbation of CHF (congestive heart failure) Current Visit: Yes Status: Acute Comfort care only Qualifiers: Heart failure type: systolic Qualified Code(s): I50.23 - Acute on chronic systolic (congestive) heart failure (3) Acute on chronic kidney failure Current Visit: Yes Status: Acute Will withdraw dialysis care at this time Will sign off, please reconsult prn Qualifiers: Acute renal failure type: unspecified Chronic kidney disease stage: stage 3 (moderate) Qualified Code(s): N17.9 - Acute kidney failure, unspecified; N18.3 - Chronic kidney disease, stage 3 (moderate) (4) Anemia Current Visit: Yes Status: Chronic Qualifiers: Anemia type: due to chronic kidney disease Chronic kidney disease stage: stage 3 (moderate) Qualified Code(s): N18.3 - Chronic kidney disease, stage 3 (moderate); D63.1 - Anemia in chronic kidney disease Subjective Principal diagnosis: CHF, AMI, C-Diff, GILES Interval history: Pt seen and examined with family at bedside very somnlent, unresponsive and gasping for air despite mask. Pt and family decided overnight to stop dialysis after one session yesterday and is now comfort care/hospice Objective - Vital Signs Vital signs: Vital Signs Temp Pulse Resp BP Pulse Ox 10/28/18 18:57 97.8 F 31 13 60/27 91 10/28/18 17:35 96 10/28/18 16:29 95 10/28/18 14:00 95 10/28/18 13:14 90 10/28/18 12:00 83 10/28/18 11:21 91 10/28/18 09:44 69 26 92 10/28/18 08:29 65 21 92 10/28/18 06:00 60 32 135/53 92 10/28/18 05:00 71 26 131/61 99 10/28/18 04:00 98.7 F 63 25 131/39 97 10/28/18 03:52 27 139/54 100 10/28/18 03:00 55 32 133/51 100 10/28/18 02:00 59 18 113/47 97 10/28/18 01:00 54 24 79/65 95 10/28/18 00:06 24 130/52 97 Intake and Output 10/28/18 10/28/18 10/29/18 15:59 23:59 07:59 Intake Total 0 / 0 Output Total 50 / 85 Balance 0 / -85 -50 / -85 Intake: Oral 0 / 0 Output: Catheter 50 / - General Appearance General appearance: Present: chronically ill, fatigue EENT: Present: ATNC, mucous membranes dry Neck: Present: no JVD, supple Respiratory: Present: course breath sounds Cardiology: Present: edema (severe LE bilat extending to abdomen), normal S1, normal S2 Dialysis Vascular Access: Venous Catheter (temp line with heavy dressing after bleed) Gastrointestinal: Present: no tenderness, no guarding, obese Integumentary: Present: warm and dry Neurologic: Present: obtunded Musculoskeletal: Present: no deformities Additional Comments: nonresponsive at this time - Lab 10/28/18 04:23 10/28/18 04:23 Consult Discharge Plan - Plan Additional Instructions: Follow up in wound care 1 week s/p discharge with Dr. Herrera Cleanse right foot with warm water and soap daily. Cover ulcer with calcium alginate, 4x4 dry gauze, and kerlix. Secure with medipore tape. Referrals: Antonio Savage, [employer] [Advanced Practice Nurse] - (office will call patient at home with follow up appointment) Davion Ruelas DO [Partnered Physician] - 10/29/18 1:00 pm
== END 2018-10-28 19:25 | disposition expired | DRG 853 ==
LOC: SUATTDRO 20:27 → ICNU 20:27 → 2NNU 10-20 18:18 → 2ANU 10-24 10:51 → ICNU 10-25 22:49 → 2ANU 10-28 18:51
PROVIDERS: ADMIT Internal Medicine; ATTEND Internal Medicine Pulmonary Disease
PROC: IRPERMA (2018-10-27 12:00)